=== PATIENT | male | born 1955 | race Caucasian/White ===

== ENCOUNTER 2017-10-21 13:14 | Emergency (ER) | payer OTHER ==
[2017-10-21 14:38] LABS: Absolute Lymphocytes (CBC) 1.5 K/uL (0.7-4.9); Absolute Monocytes 0.9 K/uL (0.1-1.3); Absolute Neutrophil 8.9 K/uL (1.8-8.0); Basophils % 0.7 % (0-1.3); Eosinophils % 1.2 % (0-4.4); Hematocrit 42.4 % (39.6-49.0); Lymphocytes % 13.1 % (15.3-44.8); MCH 29.8 pg (27.0-35.0); MCV 89.3 fL (80-100); MPV 9.7 fL (7.6-11.3); Monocytes % 8.1 % (3.3-12.3); RBC Red Blood Cell Count 4.75 M/uL (4.33-5.43)
[2017-10-21 14:41] LABS: Bicarbonate 26 mEq/L (21-31); Glucose Level 168 mg/dL (65-120); Potassium 3.9 mEq/L (3.6-5.0); Sodium Level 138 mEq/L (135-145)
[2017-10-21 14:42] LABS: BUN Blood Urea Nitrogen 10 mg/dL (6-20); Glomerular Filtration Rate > 90 mL/min (=/>90)
[2017-10-21 14:47] LABS: Urine Blood NEGATIVE (NEG); Urine Glucose 1+ (NEG); Urine Protein NEGATIVE (NEG); Urine Specific Gravity 1.025 (1.005-1.030); Urine pH 5.5 (5.0-7.0)
--- NOTE | 2017-10-21 14:59 | RAD REPORT ---
EXAM DESCRIPTION: CT - Head Brain Wo Cont - 10/21/2017 2:47 pm CLINICAL HISTORY: Dizziness COMPARISON: None. TECHNIQUE: Computed axial tomography of the head was obtained. IV contrast was not requested. All CT scans are performed using dose optimization technique as appropriate and may include automated exposure control or mA/KV adjustment according to patient size. FINDINGS: An intracranial bleed is not seen . The ventricles are normal in caliber. No extra-axial fluid collection is noted. Fluid within the sinuses/ mastoids is not seen. IMPRESSION: No acute intracranial abnormality is seen. If patient's symptoms persist MRI of the bra in would be recommended.
[2017-10-21] MEDS ORDERED: ONDANSETRON 4 MG/2 ML VIAL ONE (15:43)
[2017-10-21] MEDS ORDERED: MECLIZINE HCL 12.5 MG TAB ONE (15:43)
[2017-10-21] MEDS ORDERED: PROMETHAZINE 25 MG/ML VIAL ONE (15:54)
[2017-10-21] MEDS ORDERED: NA CHLORIDE 0.9% 1,000 ML ONE (15:54)
--- NOTE | 2017-10-21 17:05 | ER ---
Nurse's Notes [facility] Name: Rafia Segundo Age: 62 yrs Sex: Male : 1955 Arrival Date: 10/21/2017 Time: 13:25 Bed 15 Private MD: Diagnosis: Vertigo;Cutaneous abscess of abdominal wall Presentation: 10/21 13:15 Presenting complaint: EMS states: Pt. is A \T\ O x 4, c/o of SOB, weakness and was rb1 diaphoretic when EMS arrived, sitting on the sofa. Denies chest pain, EKG was SR. Left lower quadrant had an insulin pump that got infected. BS 150, T 97.4, BP 122/74, P 74, O2 96% RA. Transition of care: patient was not received from another setting of care. Onset of symptoms was October 21, 2017 at 12:45. Care prior to arrival: None. 13:15 Method Of Arrival: EMS: [facility] 13:15 Acuity: ARBEN 3 rb1 Triage Assessment: 13:15 General: Appears in no apparent distress. comfortable, Behavior is calm, cooperative, rb1 Denies fever. Pain: Complains of pain in left lower quadrant Pain currently is 3 out of 10 on a pain scale. Neuro: Level of Consciousness is awake, alert, obeys commands, Oriented to person, place, time, situation. Cardiovascular: Capillary refill < 3 seconds is brisk in bilateral fingers. Respiratory: Reports shortness of breath at rest Airway is patent Respiratory effort is even, unlabored, Respiratory pattern is regular, symmetrical, Onset: The symptoms/episode began/occurred suddenly, the patient has mild shortness of breath. GI: Reports nausea. : No signs and/or symptoms were reported regarding the genitourinary system. Derm: Skin is pink, warm \T\ dry. scabs noted to both arms. Musculoskeletal: Range of motion: intact in all extremities. Historical: - Allergies: 13:15 Skelaxin; rb1 - Home Meds: 13:15 clonazepam 1 mg Oral tab nightly [Active]; Creon Oral 3 cap with each meal [Active]; rb1 Flexeril 10 mg Oral tab 1 tab 2 times per day [Active]; losartan Oral once daily [Active]; lovasa 1gram 2 cap twice a day [Active]; [place] 7.5-325 mg Oral tab 1 tab every 4 hours [Active]; - PMHx: 13:15 Chronic pain; Diabetes - NIDDM; Hypertension; Pancreatitis; RESTLESS LEG SYN; rb1 - PSHx: 13:15 shoulder surgery; WHIPPLE; carpal tunnel to left hand; Cholecystectomy; Appendectomy; rb1 right knee surgery; - Immunization history:: Adult Immunizations up to date. - Social history:: Smoking status: Patient uses tobacco products, smokes one pack cigarettes per day. Screenin:15 Abuse screen: Denies threats or abuse. Nutritional screening: No deficits noted. rb1 Tuberculosis screening: No symptoms or risk factors identified. Fall Risk None identified. Assessment: 13:15 General: See triage assessment. rb1 13:15 Cardiovascular: Rhythm is sinus rhythm. Respiratory: Airway is patent Respiratory rb1 effort is even, unlabored, Respiratory pattern is regular, symmetrical, Breath sounds are clear bilaterally. 14:10 Reassessment: Patient appears in no apparent distress at this time. No changes from rb1 previously documented assessment. 15:09 Reassessment: Patient appears in no apparent distress at this time. Patient and/or rb1 family updated on plan of care and expected duration. Pain level reassessed. Patient is alert, oriented x 3, equal unlabored respirations, skin warm/dry/pink. 16:02 Reassessment: Patient appears in no apparent distress at this time. No changes from rb1 previously documented assessment. 17:04 Reassessment: Patient appears in no apparent distress at this time. Patient and/or rb1 family updated on plan of care and expected duration. Pain level reassessed. Patient is alert, oriented x 3, equal unlabored respirations, skin warm/dry/pink. Family at bedside. Vital Signs: 13:15 BP 150 / 83; Pulse 74; Resp 19; Temp 97.6(O); Pulse Ox 100% on R/A; Weight 73.48 kg; rb1 Height 5 ft. 9 in. (175.26 cm); Pain 3/10; 14:02 BP 148 / 83; Pulse 72; Resp 18; Pulse Ox 99% on R/A; Pain 3/10; rb1 15:00 BP 134 / 83 Supine; Pulse 74; rb1 15:02 BP 135 / 80 Sitting; Pulse 74; rb1 15:04 BP 143 / 81 Standing; Pulse 83; rb1 16:00 BP 138 / 78; Pulse 68; Resp 17; Pulse Ox 99% on R/A; rb1 17:00 BP 136 / 79; Pulse 66; Resp 18; Pulse Ox 98% on R/A; rb1 17:40 BP 137 / 81; Pulse 77; Resp 19; Pulse Ox 100% on R/A; rb1 13:15 Body Mass Index 23.92 (73.48 kg, 175.26 cm) rb1 ED Course: 13:15 Arm band placed on right wrist. rb1 13:15 Patient has correct armband on for positive identification. Placed in gown. Bed in low rb1 position. Call light in reach. Side rails up X 1. Pulse ox on. NIBP on. 13:25 Patient arrived in ED. rb1 13:26 Curly Baird PA is PHCP. jr8 13:26 Antoine Fragoso MD is Attending Physician. jr8 13:29 Triage completed. rb1 14:35 Nell Mckeon, RN is Primary Nurse. rb1 14:43 Urine Dipstick--Ancillary (enter results) Sent. tw2 14:44 Basic Metabolic Panel Sent. ag 14:44 CBC with Diff Sent. ag 14:45 Inserted saline lock: 20 gauge in right antecubital area, using aseptic technique. ag ,using aseptic technique. IV started by EMS student Dennis Munzo assisted by me. Blood collected. 14:46 CT completed. Patient tolerated procedure well. Patient moved back from CT. bq 15:28 EKG done, by ED staff, reviewed by Curly CHENG. ag 15:30 CT Head Brain wo Cont Sent. ag 17:52 No provider procedures requiring assistance completed. IV discontinued, intact, rb1 bleeding controlled, No redness/swelling at site. Pressure dressing applied. Administered Medications: 15:29 Drug: Meclizine 25 mg Route: PO; rb1 16:00 Follow up: Response: No adverse reaction rb1 15:29 Drug: Zofran 4 mg Route: IVP; Site: right antecubital; rb1 15:50 Follow up: Response: No adverse reaction; Nausea is decreased rb1 Outcome: 17:04 Discharge ordered by . jr8 17:52 Patient left the ED. rb1 17:52 Discharged to home ambulatory, with family. rb1 17:52 Condition: stable 17:52 Discharge instructions given to patient, Instructed on discharge instructions, follow up and referral plans. medication usage, Demonstrated understanding of instructions, follow-up care, medications, Prescriptions given X 4. Addendum: 10/24/2017 17:35 Addendum: Culture Results: Positive wound culture. Bacteria is resistant to, has i w intermediate sensitivity, or is not tested against prescribed antibiotics. Report given to FELICIANO for further evaluation and then to radio interference investigator for follow up with patient. Phone call Attempt #1 symptoms improving, abscess healing, has follow up with PCP on 11-02-17. Signatures: Maday Hurst Irene, RN RN iw Curly Baird PA PA jr8 Giselle Hernandes Rebecca, RN RN rb1 Lorraine Gan RN RN tw2
--- NOTE | 2017-10-21 17:05 | EDPHYS ---
Physician Documentation [facility] Name: Rafia Segundo Age: 62 yrs Sex: Male : 1955 Arrival Date: 10/21/2017 Time: 13:25 Bed 15 Private MD: ED Physician Antoine Fragoso HPI: 10/21 14:32 This 62 yrs old Male presents to ER via EMS with complaints of dizziness. jr8 15:06 The patient presents with vertigo. Onset: The symptoms/episode began/occurred acutely, jr8 today. Context: occurred at home, occurred while the patient was at rest. Modifying factors: The symptoms are alleviated by holding head still. Associated signs and symptoms: Pertinent positives: diaphoresis, nausea. Severity of symptoms: At their worst the symptoms were moderate in the emergency department the symptoms have improved mildly. Patient's baseline: Neuro: alert and fully oriented, Motor: no deficits, Ambulation: walks without assistance, Speech: normal. The patient has not experienced similar symptoms in the past. The patient has not recently seen a physician. Historical: - Allergies: 13:15 Skelaxin; rb1 - Home Meds: 13:15 clonazepam 1 mg Oral tab nightly [Active]; Creon Oral 3 cap with each meal [Active]; rb1 Flexeril 10 mg Oral tab 1 tab 2 times per day [Active]; losartan Oral once daily [Active]; lovasa 1gram 2 cap twice a day [Active]; [place] 7.5-325 mg Oral tab 1 tab every 4 hours [Active]; - PMHx: 13:15 Chronic pain; Diabetes - NIDDM; Hypertension; Pancreatitis; RESTLESS LEG SYN; rb1 - PSHx: 13:15 shoulder surgery; WHIPPLE; carpal tunnel to left hand; Cholecystectomy; Appendectomy; rb1 right knee surgery; - Immunization history:: Adult Immunizations up to date. - Social history:: Smoking status: Patient uses tobacco products, smokes one pack cigarettes per day. ROS: 15:06 Eyes: Negative for injury, pain, redness, and discharge, ENT: Negative for injury, jr8 pain, and discharge, Neck: Negative for injury, pain, and swelling, Cardiovascular: Negative for chest pain, palpitations, and edema, Respiratory: Negative for shortness of breath, cough, wheezing, and pleuritic chest pain, Abdomen/GI: Negative for abdominal pain, nausea, vomiting, diarrhea, and constipation, Back: Negative for injury and pain, MS/Extremity: Negative for injury and deformity, Skin: Negative for injury, rash, and discoloration. 15:06 Neuro: Positive for dizziness, Negative for altered mental status, gait disturbance, headache, hearing loss, loss of consciousness, numbness, seizure activity, speech changes, syncope, near syncope, tingling, tinnitus, tremor, visual changes, weakness. Exam: 15:06 Eyes: Pupils equal round and reactive to light, extra-ocular motions intact. Lids and jr8 lashes normal. Conjunctiva and sclera are non-icteric and not injected. Cornea within normal limits. Periorbital areas with no swelling, redness, or edema. ENT: Nares patent. No nasal discharge, no septal abnormalities noted. Tympanic membranes are normal and external auditory canals are clear. Oropharynx with no redness, swelling, or masses, exudates, or evidence of obstruction, uvula midline. Mucous membranes moist. Neck: Trachea midline, no thyromegaly or masses palpated, and no cervical lymphadenopathy. Supple, full range of motion without nuchal rigidity, or vertebral point tenderness. No Meningismus. Cardiovascular: Regular rate and rhythm with a normal S1 and S2. No gallops, murmurs, or rubs. Normal PMI, no JVD. No pulse deficits. Respiratory: Lungs have equal breath sounds bilaterally, clear to auscultation and percussion. No rales, rhonchi or wheezes noted. No increased work of breathing, no retractions or nasal flaring. Abdomen/GI: Soft, non-tender, with normal bowel sounds. No distension or tympany. No guarding or rebound. No evidence of tenderness throughout. Back: No spinal tenderness. No costovertebral tenderness. Full range of motion. MS/ Extremity: Pulses equal, no cyanosis. Neurovascular intact. Full, normal range of motion. Neuro: Awake and alert, GCS 15, oriented to person, place, time, and situation. Cranial nerves II-XII grossly intact. Motor strength 5/5 in all extremities. Sensory grossly intact. Cerebellar exam normal. Normal gait. 17:02 Skin: abscess, that is small, of the abdomen, with fluctuance, with surrounding jr8 cellulitis, that is mild. Vital Signs: 13:15 BP 150 / 83; Pulse 74; Resp 19; Temp 97.6(O); Pulse Ox 100% on R/A; Weight 73.48 kg; rb1 Height 5 ft. 9 in. (175.26 cm); Pain 3/10; 14:02 BP 148 / 83; Pulse 72; Resp 18; Pulse Ox 99% on R/A; Pain 3/10; rb1 15:00 BP 134 / 83 Supine; Pulse 74; rb1 15:02 BP 135 / 80 Sitting; Pulse 74; rb1 15:04 BP 143 / 81 Standing; Pulse 83; rb1 16:00 BP 138 / 78; Pulse 68; Resp 17; Pulse Ox 99% on R/A; rb1 17:00 BP 136 / 79; Pulse 66; Resp 18; Pulse Ox 98% on R/A; rb1 17:40 BP 137 / 81; Pulse 77; Resp 19; Pulse Ox 100% on R/A; rb1 13:15 Body Mass Index 23.92 (73.48 kg, 175.26 cm) rb1 MDM: 13:26 Patient medically screened. [facility] 17:02 Data reviewed: vital signs, nurses notes, lab test result(s), EKG, radiologic studies, [facility] CT scan, and as a result, I will discharge patient. Data interpreted: Pulse oximetry: on room air is 100 %. Interpretation: normal. Counseling: I had a detailed discussion with the patient and/or guardian regarding: the historical points, exam findings, and any diagnostic results supporting the discharge/admit diagnosis, lab results, radiology results, the need for outpatient follow up, a family practitioner, to return to the emergency department if symptoms worsen or persist or if there are any questions or concerns that arise at home. 10/21 14:17 Order name: CBC with Diff [facility] 10/21 14:17 Order name: Basic Metabolic Panel [facility] 10/21 14:32 Order name: Urine Dipstick--Ancillary (enter results) 10/21 14:41 Order name: CBC with Automated Diff; Complete Time: 15:04 EDCT 10/21 14:42 Order name: Basic Metabolic Panel; Complete Time: 15:04 EDCT 10/21 14:47 Order name: Urine Dipstick-Ancillary; Complete Time: 15:04 EDCT 10/21 14:17 Order name: CT Head Brain wo Cont [facility] 10/21 14:17 Order name: IV; Complete Time: 14:44 jr8 10/21 14:17 Order name: EKG - Nurse/Tech; Complete Time: 15:29 jr8 10/21 15:00 Order name: CT; Complete Time: 15:04 [facility] 10/21 15:06 Order name: EKG; Complete Time: 15:06 ss 10/21 17:03 Order name: Wound Culture jr8 10/21 14:18 Order name: Orthostatics; Complete Time: 15:29 jr8 Administered Medications: 15:29 Drug: Meclizine 25 mg Route: PO; rb1 16:00 Follow up: Response: No adverse reaction rb1 15:29 Drug: Zofran 4 mg Route: IVP; Site: right antecubital; rb1 15:50 Follow up: Response: No adverse reaction; Nausea is decreased rb1 Disposition: 10/21/17 17:04 Discharged to Home. Impression: Vertigo, Cutaneous abscess of abdominal wall. - Condition is Stable. - Discharge Instructions: Abscess, Incision and Drainage, Vertigo. - Prescriptions for Clindamycin HCl 300 mg Oral Capsule - take 1 capsule by ORAL route every 6 hours for 10 days; 40 capsule. Meclizine 25 mg Oral Tablet - take 1 tablet by ORAL route every 8 hours As needed; 30 tablet. Zofran 4 mg Oral Tablet - take 1 tablet by ORAL route every 12 hours As needed; 20 tablet. Bactrim DS 800- 160 mg Oral Tablet - take 1 tablet by ORAL route every 12 hours for 10 days; 20 tablet. - Medication Reconciliation Form, Thank You Letter, Antibiotic Education, Prescription Opioid Use form. - Follow up: Private Physician; When: 2 - 3 days; Reason: Recheck today's complaints, Continuance of care, Re-evaluation by your physician. - Problem is new. - Symptoms have improved. Addendum: 10/23/2017 07:52 Co-signature as Attending Physician, Antoine Fragoso MD I agree with the assessment and c martinez plan of care. Signatures: Dispatcher [employer] Antoine Gayle MD MD cha Roszak, Josh, PA PA jr8 Nell Mckeon, RN RN rb1 Corrections: (The following items were deleted from the chart) 10/21 17:02 15:06 Eyes: Pupils equal round and reactive to light, extra-ocular motions intact. Lids jr8 and lashes normal. Conjunctiva and sclera are non-icteric and not injected. Cornea within normal limits. Periorbital areas with no swelling, redness, or edema. ENT: Nares patent. No nasal discharge, no septal abnormalities noted. Tympanic membranes are normal and external auditory canals are clear. Oropharynx with no redness, swelling, or masses, exudates, or evidence of obstruction, uvula midline. Mucous membranes moist. Neck: Trachea midline, no thyromegaly or masses palpated, and no cervical lymphadenopathy. Supple, full range of motion without nuchal rigidity, or vertebral point tenderness. No Meningismus. Cardiovascular: Regular rate and rhythm with a normal S1 and S2. No gallops, murmurs, or rubs. Normal PMI, no JVD. No pulse deficits. Respiratory: Lungs have equal breath sounds bilaterally, clear to auscultation and percussion. No rales, rhonchi or wheezes noted. No increased work of breathing, no retractions or nasal flaring. Abdomen/GI: Soft, non-tender, with normal bowel sounds. No distension or tympany. No guarding or rebound. No evidence of tenderness throughout. Back: No spinal tenderness. No costovertebral tenderness. Full range of motion. Skin: Warm, dry with normal turgor. Normal color with no rashes, no lesions, and no evidence of cellulitis. MS/ Extremity: Pulses equal, no cyanosis. Neurovascular intact. Full, normal range of motion. Neuro: Awake and alert, GCS 15, oriented to person, place, time, and situation. Cranial nerves II-XII grossly intact. Motor strength 5/5 in all extremities. Sensory grossly intact. Cerebellar exam normal. Normal gait. jr8
[2017-10-21 17:57] VITALS: TEMP 97.6; O2SAT 100
[2017-10-21 18:00] VITALS: BP 143/81
--- NOTE | 2017-10-22 05:14 | EKG ---
Test Date: 2017-10-21 Test Time: 15:20:17 Executive Chairman: [facility] MEASUREMENT RESULTS: Intervals: Rate: 72 SD: 162 QRSD: 92 QT: 380 QTc: 416 Moore: P: 74 SD: 162 QRS: 65 T: 51 INTERPRETIVE STATEMENTS: Normal sinus rhythm Normal ECG Compared to ECG 12/12/2013 23:51:22 No significant changes Electronically Signed On 10-22-17 05:13:53 CDT by Anthony Farrar
== END 2017-10-21 17:52 | disposition home or self-care (01) ==
LOC: ER 13:14
DX: L02.211 Cutaneous abscess of abdominal wall (principal); I10 Essential (primary) hypertension; E11.9 Type 2 diabetes mellitus without complications; F17.210 Nicotine dependence, cigarettes, uncomplicated; Z88.8 Allergy status to other drugs, medicaments and biological substances
CPT/HCPCS: 36415; 70450; 80048; 81003; 85025; 87070; 87077; 87186; 87205; 93005; 96374; 99285; J2405; J2550; J7030

== ENCOUNTER 2018-07-27 09:07 | Day surgery (SDC) | payer OTHER ==
--- NOTE | 2018-07-25 14:35 | EKG ---
Test Date: 2018-07-25 Test Time: 11:36:47 Airplane Pilot Supervisor: PK MEASUREMENT RESULTS: Intervals: Rate: 75 TN: 152 QRSD: 98 QT: 376 QTc: 419 [place]: P: 13 TN: 152 QRS: 60 T: 52 INTERPRETIVE STATEMENTS: Normal sinus rhythm Normal ECG Compared to ECG 10/21/2017 15:20:17 No significant changes Electronically Signed On 07-25-18 14:35:17 SCREENER AND BLENDER OPERATOR by Chris Arnold
--- OUTSIDE RECORDS SUMMARY | 2018-07-27 09:10 | XMS REPORT ---
:1955 [facility] Address [address] [place] [address] Dr. Duvall [address] [place] [id number] Care Team Providers Name Role Phone Unavailable Unavailable Unavailable Problems This patient has no known problems. Allergies, Adverse Reactions, Alerts This patient has no known allergies or adverse reactions. Medications This patient has no known medications.
[2018-07-27] MEDS ORDERED: NA CHLORIDE 0.9% 1,000 ML ONE (09:38)
[2018-07-27] MEDS ORDERED: MIDAZOLAM HCL 2 MG/2 ML INJ ONE (10:03)
[2018-07-27] MEDS ORDERED: BUPIVACA 0.25%/EPI 0.0005% MDV 50 ML VIAL ONE (10:07)
[2018-07-27] MEDS ORDERED: LIDOCAINE 1.5% W/EPI AMP 5 ML ONE (10:07)
[2018-07-27] MEDS ORDERED: FENTANYL CITR 100 MCG/2 ML ONE ×2 (10:37→11:11)
[2018-07-27] MEDS ORDERED: PROPOFOL 200 MG/20 ML VIAL IV ONE (10:37)
[2018-07-27] MEDS ORDERED: GLYCOPYRROLATE 0.2 MG/ML SYR ONE (10:38)
[2018-07-27] MEDS ORDERED: LIDOCAINE 1% MPF 2 ML AMPULE ONE (10:39)
[2018-07-27] MEDS ORDERED: ROCURONIUM 50 MG/5 ML VIAL IV ONE (10:39)
[2018-07-27] MEDS ORDERED: ONDANSETRON 4 MG/2 ML VIAL ONE (10:39)
[2018-07-27] MEDS ORDERED: NEOSTIGMINE 1 MG/ML -5 ML SYRINGE ONE (10:39)
--- NOTE | 2018-07-27 12:41 | P.BOP ---
Preoperative diagnosis: SCC lip insitu Postoperative diagnosis: SCC lip Primary procedure: wedge resection of left lower lip Estimated blood loss: <10ml Specimen: L lower lip, suture 12 oclock to FS Anesthesia: General Complications: None Implants: none Transferred to: Recovery Room Condition: Good
[2018-07-27 14:07] VITALS: BP 137/67; TEMP 98.4; O2SAT 97
--- NOTE | 2018-07-28 00:22 | OP ---
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 Procedure: Transverse wedge excision of the left lower lip. Indication For Procedure: Mr. Segundo is a 62-year-old with a history of sun exposure and heavy tobac co use, who presented with a shallow ulcer of the left lower lip. Biopsy confirmed squamous cell car cinoma in situ with focal invasion and the recommendation was made for formal excision in order to co nfirm removal of all abnormal tissue. The risks, benefits, and alternatives were discussed with the patient who agreed to proceed. Description Of Procedure: The patient was brought to the operating room, placed under general anesth esia via oral endotracheal tube. Initial exam revealed a superficial ulceration at the biopsy site w ith a small area of adjacent ulceration approximately 2 mm medial to the initial biopsy. Decision wa s made to remove these two areas as a single specimen. A left mental nerve block and local infiltrat ion of the lower lip was performed using Marcaine with epinephrine. The lip and face were prepped in a sterile fashion. The patient was noted to have grossly carious and avulsed teeth. A lap sponge w as placed over the teeth and tucked into the inferior gingival buccal sulcus in order to provide bett er working area and prevent egress of blood into the oral cavity proper. A knife was used to incise, a wedge excision extending from the cutaneous lip including the vermilion lip and extending onto the mucosal surface. Bovie electrocautery was used to divide the deeper tissues. The labial artery was encountered, clamped and tied with silk suture and the specimen was removed, with partial removal of the underlying orbicularis kayode. The specimen was marked at the 12 o'clock tip indicating the mucos al surface of the lip and sent to Pathology for frozen section analysis. The margins peripherally an d deep were all negative for tumor cells and a primary closure of the lip was undertaken as the porti on of the removed lip was less than 1/3 of the lip length, the deep surfaces were approximated using a 4-0 Vicryl suture and the mucosal and skin surfaces were closed in a running fashion using a gut azul ture. Triple antibiotic ointment was applied to the external suture line and the lap sponge was erin mae from the oral cavity. The patient was returned to care of anesthesia for awakening extubation wh ich proceeded without difficulty. Complications: None. Specimens: Left lower lip suture yanes 12 o'clock. Frozen section has negative margins. Disposition: The patient will follow up with Dr. Kulkarni in 10-14 days for evaluation of healing. RINA/MOHAMUD Voice ID: [id number] Report ID: [id number]
== END 2018-07-27 13:55 | disposition home or self-care (01) ==
LOC: OR 09:07
PROVIDERS: ATTEND Otolaryngology
PROC: 0CB1XZX Excision of Lower Lip, External Approach, Diagnostic (ICD-10-PCS; principal; 2018-07-27 12:00)
DX: C00.8 Malignant neoplasm of overlapping sites of lip (principal); E11.9 Type 2 diabetes mellitus without complications; F17.210 Nicotine dependence, cigarettes, uncomplicated; Z79.899 Other long term (current) drug therapy
CPT/HCPCS: 40510; 82962 ×2; 88305; 88331; 88332; 93005; J2001; J2250; J2405; J2704; J2710; J3010 ×2; J7030

== ENCOUNTER 2019-02-17 19:47 | Inpatient (IN) | payer OTHER ==
--- OUTSIDE RECORDS SUMMARY | 2019-02-17 19:58 | XMS REPORT ---
:1955 [facility] Address [address] [place] [address] Dr. Duvall [address] [place] [id number] Care Team Providers Name Role Phone Unavailable Unavailable Unavailable Problems This patient has no known problems. Allergies, Adverse Reactions, Alerts This patient has no known allergies or adverse reactions. Medications This patient has no known medications.
[2019-02-17 20:12] LABS: Absolute Lymphocytes (CBC) 1.4 K/uL (0.7-4.9); Basophils % 0.4 % (0-1.3); Hematocrit 39.7 % (39.6-49.0); Lymphocytes % 7.7 % (15.3-44.8); MPV 10.2 fL (7.6-11.3); RBC Red Blood Cell Count 4.33 M/uL (4.33-5.43)
[2019-02-17 20:13] LABS: Protime INR 1.04
[2019-02-17 20:31] LABS: ALT/SGPT 28 U/L (12-78); AST/SGOT 22 U/L (15-37); Albumin 3.8 g/dL (3.4-5.0); Alkaline Phosphatase 115 U/L (45-117); BUN Blood Urea Nitrogen 12 mg/dL (7-18); Bicarbonate 25 mmol/L (21-32); Bilirubin Direct 0.2 mg/dL (0-0.2); Bilirubin Total 0.5 mg/dL (0.2-1.0); Glucose Level 191 mg/dL (74-106); Lipase 12 U/L (73-393); Magnesium 1.9 mg/dL (1.8-2.4); NT PRO-BNP 104 pg/mL (<125); Potassium 3.8 mmol/L (3.5-5.1); Protein, Total 7.6 g/dL (6.4-8.2); Sodium Level 139 mmol/L (136-145); Troponin (Emerg Dept Use Only) < 0.02 ng/mL (0.0-0.045)
[2019-02-17] MEDS ORDERED: NA CHLORIDE 0.9% 1,000 ML ONE (20:42)
[2019-02-17] MEDS ORDERED: ONDANSETRON 4 MG/2 ML VIAL ONE (20:42)
[2019-02-17] MEDS ORDERED: MORPHINE 4 MG/ML SYR ONE (20:42)
--- NOTE | 2019-02-17 20:48 | RAD REPORT ---
EXAM DESCRIPTION: RAD - Chest Single View - 02/17/2019 8:37 pm CLINICAL HISTORY: CHEST PAIN Chest pain. COMPARISON: CHEST PA AND LAT 2 VIEW dated 01/14/2012; CHEST PA AND LAT 2 VIEW dated 10/09/2011; CHEST SINGLE VIEW dated 03/23/2008; CHEST SINGLE VIEW dated 03/22/2008 FINDINGS: Portable technique limits examination quality. The lungs are grossly clear. The heart is normal in size. No displaced fractures. IMPRESSION: No acute intrathoracic process suspected.
[2019-02-17] MEDS ORDERED: FENTANYL CITR 100 MCG/2 ML ONE (21:28)
--- NOTE | 2019-02-17 22:25 | EDPHYS ---
Physician Documentation [facility] Name: Rafia Segundo Age: 63 yrs Sex: Male : 1955 Arrival Date: 02/17/2019 Time: 19:55 Bed 15 Private MD: ED Physician Jason Heaton HPI: 02/17 20:50 This 63 yrs old Male presents to ER via EMS with complaints of Chest Pain. pm1 20:50 The patient or guardian reports chest pain that is located primarily in the epigastric pm1 area. Onset: just prior to arrival. The pain does not radiate. Associated signs and symptoms: Pertinent positives: abdominal pain, Pertinent negatives: nausea, shortness of breath, vomiting, Diarrhea. The chest pain is described as aching. Duration: The patient or guardian reports a single episode, that is still ongoing. Modifying factors: The symptoms are alleviated by nothing. the symptoms are aggravated by nothing. Severity of pain: in the emergency department the pain is actually worse. The patient has experienced similar episodes in the past, multiple times, history of chronic pancreatitis . The patient has been recently seen by a physician: the patient's primary care provider, Dr. Suh for cough 1 week ago. Historical: - Allergies: 20:01 Skelaxin; la1 - Home Meds: 22:46 Creon 12,000-38,000 -60,000 unit oral cpDR 1 caps 3 times per day [Active]; clonazepam la1 1 mg Oral tab 2 times per day [Active]; gabapentin 400 mg oral cap 1 cap 3 times per day [Active]; [place] 7.5-325 mg Oral tab 1 tab every 6 hours [Active]; Flexeril 10 mg Oral tab 1 tab 3 times per day [Active]; lovastatin 20 mg Oral tab 1 tab once daily [Active]; losartan 100 mg oral tab 1 tab once daily [Active]; pantoprazole 40 mg oral TbEC 1 tab once daily [Active]; 22:50 Humalog 100 unit/mL Sub-Q soln 1 Pt has basal rate insulin and boluses based on card la1 intake [Active]; - PMHx: 20:01 Chronic pain; Diabetes - NIDDM; Hypertension; Pancreatitis; RESTLESS LEG SYN; la1 22:46 insulin pump; la1 22:50 Cancer of gall bladder duct; la1 - Immunization history:: Adult Immunizations up to date. - Social history:: Smoking status: Patient uses tobacco products, smokes one pack cigarettes per day. - Ebola Screening: : No symptoms or risks identified at this time. ROS: 20:55 Constitutional: Negative for fever, chills, and weight loss, Eyes: Negative for injury, pm1 pain, redness, and discharge, ENT: Negative for injury, pain, and discharge, Neck: Negative for injury, pain, and swelling. 20:55 Respiratory: Negative for shortness of breath, cough, wheezing, and pleuritic chest pain. 20:55 Back: Negative for injury and pain, : Negative for injury, bleeding, discharge, and swelling, MS/Extremity: Negative for injury and deformity, Skin: Negative for injury, rash, and discoloration, Neuro: Negative for headache, weakness, numbness, tingling, and seizure. 20:55 Cardiovascular: Positive for chest pain, Negative for palpitations. 20:55 Abdomen/GI: Positive for abdominal pain, of the epigastric area and left upper quadrant, Negative for nausea, vomiting, and diarrhea, constipation. Exam: 20:00 Constitutional: This is a well developed, well nourished patient who is awake, alert, pm1 and in no acute distress. Head/Face: Normocephalic, atraumatic. Neck: Trachea midline, no thyromegaly or masses palpated, and no cervical lymphadenopathy. Supple, full range of motion without nuchal rigidity, or vertebral point tenderness. No Meningismus. Chest/axilla: Normal chest wall appearance and motion. Nontender with no deformity. No lesions are appreciated. Cardiovascular: Regular rate and rhythm with a normal S1 and S2. No gallops, murmurs, or rubs. Normal PMI, no JVD. No pulse deficits. Respiratory: Lungs have equal breath sounds bilaterally, clear to auscultation and percussion. No rales, rhonchi or wheezes noted. No increased work of breathing, no retractions or nasal flaring. 20:00 Back: No spinal tenderness. No costovertebral tenderness. Full range of motion. Skin: Warm, dry with normal turgor. Normal color with no rashes, no lesions, and no evidence of cellulitis. MS/ Extremity: Pulses equal, no cyanosis. Neurovascular intact. Full, normal range of motion. 20:00 Abdomen/GI: Inspection: abdomen appears normal, Bowel sounds: normal, Palpation: soft, moderate abdominal tenderness, in the epigastric area and left upper quadrant, mass, is not appreciated, rebound tenderness, is not appreciated. 20:00 Neuro: Orientation: is normal, Motor: is normal, moves all fours, Sensation: is normal, no obvious gross deficits. Vital Signs: 20:01 BP 129 / 70; Pulse 90; Resp 16; Temp 100.1; Pulse Ox 98% on R/A; Weight 78.93 kg; la1 Height 5 ft. 9 in. (175.26 cm); 20:52 BP 146 / 77; Pulse 88; Resp 16; Pulse Ox 98% on R/A; la1 22:29 BP 149 / 74; Pulse 84; Resp 17 S; Temp 98.2(O); Pulse Ox 98% on R/A; cc3 23:45 BP 128 / 74; Pulse 77; Resp 16; Pulse Ox 98% on R/A; la1 20:01 Body Mass Index 25.70 (78.93 kg, 175.26 cm) la1 MDM: 19:58 Patient medically screened. pm1 22:23 Data reviewed: vital signs. Data interpreted: Pulse oximetry: on room air is 98 %. pm1 Interpretation: normal. Counseling: I had a detailed discussion with the patient and/or guardian regarding: the historical points, exam findings, and any diagnostic results supporting the discharge/admit diagnosis, lab results, radiology results, the need for further work-up and treatment in the hospital, to return to the emergency department if symptoms worsen or persist or if there are any questions or concerns that arise at home. 02/17 19:58 Order name: Basic Metabolic Panel; Complete Time: 20:33 pm1 02/17 19:58 Order name: CBC with Diff; Complete Time: 20:23 pm1 02/17 19:58 Order name: LFT's; Complete Time: 20:33 pm1 02/17 19:58 Order name: Magnesium; Complete Time: 20:33 pm1 02/17 19:58 Order name: NT PRO-BNP; Complete Time: 20:33 pm1 02/17 19:58 Order name: PT-INR; Complete Time: 20:32 pm1 02/17 19:58 Order name: Troponin (emerg Dept Use Only); Complete Time: 20:33 pm1 02/17 19:58 Order name: XRAY Chest (1 view); Complete Time: 20:51 pm1 02/17 20:16 Order name: Lipase; Complete Time: 20:33 EDMS 02/17 20:23 Order name: ETOH Level; Complete Time: 21:49 pm1 02/17 20:49 Order name: CT Abd/Pelvis - IV Contrast Only pm1 02/17 21:10 Order name: Urine Dipstick--Ancillary (enter results); Complete Time: 23:18 cm6 02/17 19:58 Order name: EKG; Complete Time: 20:01 pm1 02/17 19:58 Order name: Cardiac monitoring; Complete Time: 20:04 pm1 02/17 19:58 Order name: EKG - Nurse/Tech; Complete Time: 20:04 pm1 02/17 19:58 Order name: IV Saline Lock; Complete Time: 20:04 pm1 02/17 19:58 Order name: Labs collected and sent; Complete Time: 20:04 pm1 02/17 19:58 Order name: O2 Per Protocol; Complete Time: 20:04 pm1 02/17 19:58 Order name: O2 Sat Monitoring; Complete Time: 20:04 pm1 02/17 20:49 Order name: Urine Dipstick-Ancillary (obtain specimen); Complete Time: 21:13 pm1 02/17 22:25 Order name: NPO; Complete Time: 22:34 pm1 02/17 23:41 Order name: CONS Pharmacy Consult EDMS 02/17 23:41 Order name: NPO EDOH Administered Medications: 20:35 Drug: morphine 4 mg Route: IVP; Site: right antecubital; la1 20:50 Follow up: Response: No adverse reaction; Pain is decreased la1 20:35 Drug: Zofran 4 mg Route: IVP; Site: right antecubital; la1 20:50 Follow up: Response: No adverse reaction la1 20:35 Drug: NS 0.9% 1000 ml Route: IV; Rate: 1000 ml; Site: right antecubital; la1 23:15 Follow up: IV Status: Completed infusion la1 21:14 Drug: fentaNYL (PF) 50 mcg Route: IVP; Site: right antecubital; la1 22:34 Follow up: Response: No adverse reaction; Pain is decreased la1 23:09 Not Given (Physician Discretion): NS 0.9% 1000 ml IV at 100 ml/hr once pm1 23:20 Drug: D5 -4 NS 1000 ml Route: IV; Rate: 100 ml/hr; Site: right antecubital; la1 23:21 Follow up: IV Status: Infusion continued upon admission la1 Point of Care Testing: Blood Glucose: 20:01 Blood Glucose: 211 mg/dL; la1 Ranges: Critical Glucose Levels:Adult <50 mg/dl or >400 mg/dl <40 mg/dl or >180 mg/dl Disposition: 02/17/19 22:23 Hospitalization ordered by Amira Gonzalez for Inpatient Admission. Preliminary diagnosis is Acute pancreatitis. - Bed requested for Telemetry/MedSurg (Inpatient). - Status is Inpatient Admission. la1 - Condition is Stable. - Problem is new. - Symptoms have improved. UTI on Admission? No Addendum: 02/19/2019 04:42 Co-signature as Attending Physician, Jason Heaton MD I agree with the assessment and t w4 plan of care. Signatures: Dispatcher [employer] EDOH Dede Crain RN RN Slick Lo RN RN la1 Gray Ricks, SMALLTALK DEVELOPER SMALLTALK DEVELOPER pm1 Jason Heaton MD MD tw4 Corrections: (The following items were deleted from the chart) 02/17 20:15 20:06 LIPASE+C.LAB.BRZ ordered. [facility] EDOH 23:48 22:23 Hospitalization Ordered by Amira Gonzalez MD for Inpatient Admission. Preliminary mw diagnosis is Acute pancreatitis. Bed requested for Telemetry/MedSurg (Inpatient). Status is Inpatient Admission. Condition is Stable. Problem is new. Symptoms have improved. UTI on Admission? No. pm1 02/18 00:36 02/17 23:48 02/17/2019 22:23 Hospitalization Ordered by Amira Gonzalez MD for Inpatient la1 Admission. Preliminary diagnosis is Acute pancreatitis. Bed requested for Telemetry/MedSurg (Inpatient). Status is Inpatient Admission. Condition is Stable. Problem is new. Symptoms have improved. UTI on Admission? No. mw
--- NOTE | 2019-02-17 22:25 | ER ---
Nurse's Notes [facility] Name: Rafia Segundo Age: 63 yrs Sex: Male : 1955 Arrival Date: 02/17/2019 Time: 19:55 Bed 15 Private MD: Diagnosis: Acute pancreatitis Presentation: 02/17 20:00 Presenting complaint: Patient states: I was working on my car and got hypoglycemic, la1 after that my chest started hurting real bad and it radiates to my back. Transition of care: patient was not received from another setting of care. Onset of symptoms was February 17, 2019. Risk Assessment: Do you want to hurt yourself or someone else? Patient reports no desire to harm self or others. Initial Sepsis Screen: Does the patient meet any 2 criteria? No. Patient's initial sepsis screen is negative. Does the patient have a suspected source of infection? No. Patient's initial sepsis screen is negative. Care prior to arrival: None. 20:00 Method Of Arrival: EMS: [facility] la1 20:00 Acuity: ARBEN 2 la1 Historical: - Allergies: 20:01 Skelaxin; la1 - Home Meds: 22:46 Creon 12,000-38,000 -60,000 unit oral cpDR 1 caps 3 times per day [Active]; clonazepam la1 1 mg Oral tab 2 times per day [Active]; gabapentin 400 mg oral cap 1 cap 3 times per day [Active]; [place] 7.5-325 mg Oral tab 1 tab every 6 hours [Active]; Flexeril 10 mg Oral tab 1 tab 3 times per day [Active]; lovastatin 20 mg Oral tab 1 tab once daily [Active]; losartan 100 mg oral tab 1 tab once daily [Active]; pantoprazole 40 mg oral TbEC 1 tab once daily [Active]; 22:50 Humalog 100 unit/mL Sub-Q soln 1 Pt has basal rate insulin and boluses based on card la1 intake [Active]; - PMHx: 20:01 Chronic pain; Diabetes - NIDDM; Hypertension; Pancreatitis; RESTLESS LEG SYN; la1 22:46 insulin pump; la1 22:50 Cancer of gall bladder duct; la1 - Immunization history:: Adult Immunizations up to date. - Social history:: Smoking status: Patient uses tobacco products, smokes one pack cigarettes per day. - Ebola Screening: : No symptoms or risks identified at this time. Screenin:03 Abuse screen: Denies threats or abuse. Nutritional screening: No deficits noted. la1 Tuberculosis screening: No symptoms or risk factors identified. Fall Risk None identified. Assessment: 20:02 General: Appears in no apparent distress. Behavior is calm, cooperative. Pain: la1 Complains of pain in chest Pain radiates to back Pain currently is 5 out of 10 on a pain scale. Quality of pain is described as pressure, Pain began 1 hour ago. Neuro: Level of Consciousness is awake, alert, obeys commands, Oriented to person, place, time, situation. Cardiovascular: Capillary refill < 3 seconds Patient's skin is warm and dry. Respiratory: Airway is patent Respiratory effort is even, unlabored, Respiratory pattern is regular, symmetrical, Breath sounds are coarse bilaterally. GI: No signs and/or symptoms were reported involving the gastrointestinal system. : No signs and/or symptoms were reported regarding the genitourinary system. 20:35 Reassessment: Patient appears in no apparent distress at this time. No changes from la1 previously documented assessment. Patient and/or family updated on plan of care and expected duration. Pain level reassessed. Patient is alert, oriented x 3, equal unlabored respirations, skin warm/dry/pink. 21:54 Reassessment: Patient appears in no apparent distress at this time. No changes from la1 previously documented assessment. Patient and/or family updated on plan of care and expected duration. Pain level reassessed. Patient is alert, oriented x 3, equal unlabored respirations, skin warm/dry/pink. 23:46 Reassessment: Patient appears in no apparent distress at this time. No changes from la1 previously documented assessment. Patient and/or family updated on plan of care and expected duration. Pain level reassessed. Patient is alert, oriented x 3, equal unlabored respirations, skin warm/dry/pink. Vital Signs: 20:01 BP 129 / 70; Pulse 90; Resp 16; Temp 100.1; Pulse Ox 98% on R/A; Weight 78.93 kg; la1 Height 5 ft. 9 in. (175.26 cm); 20:52 BP 146 / 77; Pulse 88; Resp 16; Pulse Ox 98% on R/A; la1 22:29 BP 149 / 74; Pulse 84; Resp 17 S; Temp 98.2(O); Pulse Ox 98% on R/A; cc3 23:45 BP 128 / 74; Pulse 77; Resp 16; Pulse Ox 98% on R/A; la1 20:01 Body Mass Index 25.70 (78.93 kg, 175.26 cm) la1 ED Course: 19:55 Patient arrived in ED. ds1 19:58 Slick Lo, VIC is Primary Nurse. la1 19:58 Gray Ricks NP is PHCP. pm1 19:58 Jason Heaton MD is Attending Physician. pm1 20:00 Triage completed. la1 20:00 Inserted saline lock: 20 gauge in right antecubital area, using aseptic technique. cc3 20:02 Arm band placed on left wrist. la1 20:03 Placed in gown. Bed in low position. Call light in reach. equipment monitor phototypesetting on. Pulse ox la1 on. NIBP on. 20:38 XRAY Chest (1 view) In Process Unspecified. EDMS 20:52 Patient maintains SpO2 saturation greater than 95% on room air. la1 21:35 CT Abd/Pelvis - IV Contrast Only In Process Unspecified. EDMS 22:23 Amira Gonzalez MD is Hospitalizing Provider. pm1 07 00:35 No provider procedures requiring assistance completed. Patient admitted, IV remains in la1 place. Administered Medications: 02/17 20:35 Drug: morphine 4 mg Route: IVP; Site: right antecubital; la1 20:50 Follow up: Response: No adverse reaction; Pain is decreased la1 20:35 Drug: Zofran 4 mg Route: IVP; Site: right antecubital; la1 20:50 Follow up: Response: No adverse reaction la1 20:35 Drug: NS 0.9% 1000 ml Route: IV; Rate: 1000 ml; Site: right antecubital; la1 23:15 Follow up: IV Status: Completed infusion la1 21:14 Drug: fentaNYL (PF) 50 mcg Route: IVP; Site: right antecubital; la1 22:34 Follow up: Response: No adverse reaction; Pain is decreased la1 23:09 Not Given (Physician Discretion): NS 0.9% 1000 ml IV at 100 ml/hr once pm1 23:20 Drug: D5 -1/4 NS 1000 ml Route: IV; Rate: 100 ml/hr; Site: right antecubital; la1 23:21 Follow up: IV Status: Infusion continued upon admission la1 Point of Care Testing: Blood Glucose: 20:01 Blood Glucose: 211 mg/dL; la1 Ranges: Outcome: 22:23 Decision to Hospitalize by Provider. pm1 02/18 00:35 Admitted to Med/surg accompanied by nurse, via stretcher, room 217, with chart. la1 Condition: stable Instructed on the need for admit. 00:36 Patient left the ED. la1 Signatures: Dispatcher [employer] EDIL Tianna Mccullough ds1 Slick Lo RN RN la1 Gray Ricks NP SOLAR SALES AMBASSADOR pm1 Vivien Morton cc3 Corrections: (The following items were deleted from the chart) 02/17 22:31 22:29 BP 149 / 74; Pulse 84bpm; Resp 17bpm; Spontaneous; Pulse Ox 98% RA; cc3 cc3
[2019-02-17 23:14] LABS: Urine Blood NEGATIVE (NEG); Urine Glucose NEGATIVE (NEG); Urine Protein NEGATIVE (NEG)
[2019-02-17] MEDS ORDERED: D5 0.2 NS 1,000 ML IV ONE (23:33)
[2019-02-17] MEDS ORDERED: ONDANSETRON 4 MG/2 ML VIAL IV PRN (23:35)
[2019-02-17] MEDS ORDERED: ACETAMINOPHEN 500 MG TAB PO PRN (23:35)
[2019-02-17] MEDS ORDERED: MORPHINE 4 MG/ML SYR IV PRN (23:35)
[2019-02-17] MEDS ORDERED: NA CHLORIDE 0.9% 1,000 ML IV SCH (23:45)
[2019-02-18 02:01] VITALS: BMI 25.7
[2019-02-18] MEDS: FENTANYL CITR 100 MCG/2 ML IV PRN ×2 (03:41→09:27)
[2019-02-18 05:14] LABS: Absolute Lymphocytes (CBC) 3.3 K/uL (0.7-4.9); Basophils % 0.6 % (0-1.3); Hematocrit 37.7 % (39.6-49.0); Lymphocytes % 26.7 % (15.3-44.8); MPV 10.2 fL (7.6-11.3)
[2019-02-18 05:30] LABS: Albumin 3.3 g/dL (3.4-5.0); Bilirubin Total 0.5 mg/dL (0.2-1.0); Potassium 4.2 mmol/L (3.5-5.1); Protein, Total 6.8 g/dL (6.4-8.2)
[2019-02-18] MEDS ORDERED: D50W 25 GM/50 ML SYRINGE IV ONE ×2 (05:38→12:33)
[2019-02-18] MEDS ORDERED: ALBUTEROL 2.5 MG/3 ML NEB SOL IH PRN (07:58)
[2019-02-18] MEDS ORDERED: CYCLOBENZAPRINE 10 MG TAB PO PRN (07:58)
[2019-02-18] MEDS ORDERED: BENZONATATE 100 MG CAP PO PRN (07:58)
--- NOTE | 2019-02-18 08:01 | P.HP ---
Certification for Inpatient Patient admitted to: Observation With expected LOS: <2 Midnights Patient will require the following post-hospital care: None Practitioner: I am a practitioner with admitting privileges, knowledge of patient current condition, hospital course, and medical plan of care. Services: Services provided to patient in accordance with Admission requirements found in Title 42 Section 412.3 of the Code of Federal Regulations Patient History Date of Service: 02/18/19 Reason for admission: Acute on chronic pancreatitis History of Present Illness: Patient is a 63-year-old gentleman who has a history of cholangiocarcinoma status post Whipple procedure. This was done 30 years ago. Patient has done extremely well since the surgery. He did develop pancreatitis afterwards. He has developed chronic pancreatitis per CT findings. He gets flare ups on and off. He takes Creon daily but he ran out a couple weeks ago. He started having abdominal pain about a week later. It progressed and he started having nausea and vomiting with this severe pain. He came into the hospital. His lipase is normal but his CT scan does show moderate inflammation. He does have chronic pancreatitis with calcifications seen on the CT scan of the pancreas. Will restart his Creon and hydrate him aggressively. Will discuss with Radiology CT findings as he has also had prior intra-abdominal abscesses. This was treated at [facility] over a year ago. He has done well since that time. Will have to monitor him closely with while in the hospital and restart his Creon and hopefully his symptoms resolve quickly. Allergies metaxalone [From Skelaxin] Allergy (Mild, Verified 02/18/19 01:30) Rash Home Medications: Albuterol Neb [Proventil 0.083% Neb Soln] 2.5 mg IH BID PRN 02/18/19 Benzonatate 100 mg PO TID PRN 02/18/19 Cyclobenzaprine [Flexeril] 10 mg PO TID PRN 02/18/19 Gabapentin 400 mg PO TID 02/18/19 Hydrocodone/Acetaminophen [[place] 7.5-325 Tablet] 1 each PO Q6H PRN 02/18/19 Lipase/Protease/Amylase [Azalia Yee 12,000 Units Capsule] 1 each PO TIDWM Losartan Potassium 100 mg PO DAILY 02/18/19 Lovastatin 20 mg PO BEDTIME 02/18/19 Montelukast Sodium [Singulair] 10 mg PO DAILY 02/18/19 Pantoprazole Sodium [Protonix] 40 mg PO DAILY 02/18/19 clonazePAM [Klonopin] 1 mg PO BID 02/18/19 - Past Medical/Surgical History Has patient received pneumonia vaccine in the past: No Diabetic: Yes -: chronic pain -: Diabetes -: HTN -: pancreatitis -: restless leg syndrome -: cancer of the lip -: whipple procedure -: bilateral shoulder surgery -: knee and back surgery - Family History Father Family History: Reviewed- Non-Contributory - Social History Smoking Status: Heavy Tobacco smoker (>10 cigarettes/day) Alcohol use: No CD- Drugs: Yes Caffeine use: Yes Place of Residence: Home Review of Systems 10-point ROS is otherwise unremarkable Physical Examination - Vital Signs Temperature: 98.4 F Blood Pressure: 133/73 Pulse: 75 Respirations: 18 Pulse Ox (%): 97 - Physical Exam General: Alert, In no apparent distress, Oriented x3 HEENT: Atraumatic, PERRLA, Mucous membr. moist/pink, EOMI, Sclerae nonicteric Neck: Supple, 2+ carotid pulse no bruit, No LAD, Without JVD or thyroid abnormality Respiratory: Clear to auscultation bilaterally, Normal air movement Cardiovascular: Regular rate/rhythm, Normal S1 S2, No murmurs Gastrointestinal: Normal bowel sounds, Soft and benign, Non-distended, No rebound, No guarding, Tenderness Musculoskeletal: No clubbing, No swelling, No tenderness Integumentary: No rashes Neurological: Normal gait, Normal speech, Normal strength at 5/5 x4 extr, Normal tone, Sensation intact, Cranial nerves 3-12 intact, Normal affect Lymphatics: No axilla or inguinal lymphadenopathy - Studies Laboratory Data (last 24 hrs) 02/17/19 20:05: Lipase Cancelled 02/17/19 20:03: PT 12.2, INR 1.04 02/17/19 20:03: WBC 18.8 H, Hgb 13.0 L, Hct 39.7, Plt Count 230 02/17/19 20:03: Sodium 139, Potassium 3.8, BUN 12, Creatinine 1.15, Glucose 191 H, Magnesium 1.9, Total Bilirubin 0.5, AST 22, ALT 28, Alkaline Phosphatase 115 , Lipase 12 L Assessment & Plan - Problems (Diagnosis) (1) Acute on chronic pancreatitis Current Visit: Yes Status: Acute (2) Chronic pain syndrome Current Visit: Yes Status: Acute (3) H/O gallbladder cancer Current Visit: Yes Status: Acute (4) Noncompliance with medication regimen Current Visit: Yes Status: Acute - Plan Plan: 1. Continue aggressive IV hydration 2. Pain control 3. Patient ran out of his Creon which resulted in this exacerbation. Patient will continue with pain control and will make him NPO in tell his nausea and vomiting improves. Will start him on a clear liquid diet in the next 24-[address] scan findings with Radiology. History of intra-abdominal abscess. No antibiotics at this time unless fever. 4. Strict blood pressure and blood sugar control-patient has an insulin pump 5. GI and DVT prophylaxis Discharge Plan: Home Plan to discharge in: Greater than 2 days - Advance Directives Does patient have a Living Will: No Does patient have a Durable POA for Healthcare: No - Code Status/Comfort Care Code Status Assessed: Yes Code Status: Full Code Critical Care: No Time Spent Managing PTS Care (In Minutes): 45
[2019-02-18] MEDS: D5 0.9 NS 1,000 ML IV SCH ×2 (09:23→19:11)
--- NOTE | 2019-02-18 09:51 | RAD REPORT ---
EXAM DESCRIPTION: CT - Abdomen Pelvis W Contrast - 02/17/2019 10:20 pm MAE NAIR [id number] - Abdomen Pelvis W Contrast EXAM DESCRIPTION: Abdomen Pelvis W Contrast CLINICAL HISTORY: 63 years Male ABD PAIN COMPARISON: October 17, 2015. TECHNIQUE: Images were obtained in axial, sagittal, and coronal planes. Intravenous contrast was adm inistered. This exam was performed according to our departmental dose-optimization program which includes use of Automated Exposure Control, adjustment of the mA and/or kV according to patient size and/or use of i terative reconstruction technique. FINDINGS: Pneumobilia identified. Gallbladder not well identified likely related to prior cholecyste ctomy. Biliary diversion procedure not excluded. No focal hepatic abnormality otherwise noted. Unrema rkable lean. Extensive calcification involving pancreas indicating chronic pancreatitis. No pseudocys t seen. Unremarkable portal vein. Punctate nonobstructing calcifications left kidney. No obstructing renal calcifications bilaterally. No hydronephrosis bilaterally. Distended bladder. Enlarged prostate gland with associated calcificati on. Appendix within normal limits. No bowel obstruction, perforation, or inflammation. Calcification abdominal aorta with no dilatation seen. No adenopathy. No abnormal fluid collections s een. No acute osseous abnormality. Dependent atelectatic change lower lungs bilaterally. IMPRESSION: Diffuse pancreatic calcifications with loss of volume involving the pancreas. The findin gs would be consistent with acute pancreatitis. Prior cholecystectomy versus biliary diversion proced ure. Pneumobilia identified. No acute intra-abdominal abnormality otherwise noted. Electronically signed by: Erica Cartagena MD 02/17/2019 10:03 PM CDT Due to temporary technical issues with the PACS/Fluency reporting system, reports are being signed by the in house radiologist as a courtesy to ensure prompt reporting. The interpreting radiologist is f ully responsible for the content of the report.
--- NOTE | 2019-02-18 10:16 | EKG ---
Test Date: 2019-02-17 Test Time: 19:55:29 Photoengraving Apprentice: MEASUREMENT RESULTS: Intervals: Rate: 92 NV: 152 QRSD: 88 QT: 344 QTc: 425 [place]: P: 56 NV: 152 QRS: 23 T: 49 INTERPRETIVE STATEMENTS: Normal sinus rhythm Cannot rule out Anterior infarct, age undetermined Abnormal ECG Compared to ECG 07/25/2018 11:36:47 Myocardial infarct finding now present Electronically Signed On 02-18-19 10:16:29 CDT by Anthony Farrar
[2019-02-18] MEDS: LIPASE/PROTEASE/AMYLASE CAP PO SCH ×3 (10:44→17:35)
[2019-02-18] MEDS: MONTELUKAST 10 MG TAB PO SCH (10:45)
[2019-02-18] MEDS: LOSARTAN POTASSIUM 50 MG TABLET PO SCH (10:45)
[2019-02-18] MEDS: GABAPENTIN 400 MG CAP PO SCH ×3 (10:45→21:42)
[2019-02-18] MEDS: clonazePAM 1 MG TAB PO SCH ×2 (10:45→21:42)
[2019-02-18] MEDS: PANTOPRAZOLE 40MG TABLET PO SCH (10:47)
[2019-02-18] MEDS: ATORVASTATIN 10 MG TAB PO SCH (21:42)
[2019-02-19] MEDS: D5 0.9 NS 1,000 ML IV SCH ×2 (03:31→17:03)
[2019-02-19] MEDS: MONTELUKAST 10 MG TAB PO SCH (09:11)
[2019-02-19] MEDS: clonazePAM 1 MG TAB PO SCH ×2 (09:11→20:29)
[2019-02-19] MEDS: LOSARTAN POTASSIUM 50 MG TABLET PO SCH (09:11)
[2019-02-19] MEDS: GABAPENTIN 400 MG CAP PO SCH ×3 (09:11→20:29)
[2019-02-19] MEDS: LIPASE/PROTEASE/AMYLASE CAP PO SCH ×3 (09:11→17:03)
[2019-02-19] MEDS: PANTOPRAZOLE 40MG TABLET PO SCH (09:12)
[2019-02-19] MEDS ORDERED: D50W 25 GM/50 ML SYRINGE IV PRN (12:36)
[2019-02-19] MEDS ORDERED: GLUCAGON 1 MG/VIAL IM PRN (12:36)
[2019-02-19] MEDS: INSULIN -REGULAR HUMAN 50 UNIT/0.5 ML ML SQ SCH ×2 (16:30→20:32)
--- NOTE | 2019-02-19 17:46 | PN ---
Date of Progress Note: 02/19/2019 Subjective: Patient seen and examined. Chart reviewed and case discussed with RN. Patient denies any chest pain. Does report some abdominal discomfort. Medications: List reviewed. Code Status: Full. Physical Examination: Vital Signs: Temperature 99.5, heart rate 83, blood pressure 126/62, respirations 16, O2 of 95% on room air. General: Awake, alert, and oriented x3. Appears older than stated age male. CV: S1, S2. Peripheral pulses present. Respiratory: Moving air well bilaterally. No wheezing. Gastrointestinal: Abdomen is soft. Minimal tenderness to palpation. No rebound or guarding. No distention. Positive bowel sounds. Extremities: No clubbing, cyanosis, or edema. Neurologic: Nonfocal. Cranial nerves 2 through 12 intact grossly. No focal neurological deficits. Speech is normal. Skin: No rashes. Normal skin turgor. Laboratory Data: Pending blood glucose levels ranging from 309-884. Assessment: A 63-year-old male with: 1. Acute on chronic pancreatitis. Continue monitor lipase level. CT scan of the abdomen and pelvis shows diffuse pancreatic calcifications with loss of volume involving the pancreas. Findings consistent with acute pancreatitis, prior cholecystectomy, versus biliary diversion procedure, pneumobilia identified. No acute intraabdominal abnormality otherwise noted. We will continue with pain control. Advance diet. Continue with Creon. Consult GI. 2. Chronic pain syndrome. Resume medications as appropriate. 3. History of gallbladder cancer, patient is status post Whipple procedure. 4. Noncompliance. 5. Nicotine dependence with cigarette smoking, counseled. 6. Diabetes mellitus type 2, insulin requiring with hyperglycemia. Patient's insulin pump apparently has run out of insulin. We will switch to sliding scale insulin until family can bring his refill medication. 7. Hyperlipidemia. Continue statin. 8. Restless legs syndrome. Plan: 1. DVT prophylaxis addressed. 2. GI consultation. 3. Likely discharge in the next 24-48 hours depending on clinical response. /MOHAMUD Voice ID: [id number] Report ID: [id number] MTDD
[2019-02-19] MEDS: ATORVASTATIN 10 MG TAB PO SCH (20:29)
[2019-02-20] MEDS: D5 0.9 NS 1,000 ML IV SCH ×2 (04:30→11:00)
[2019-02-20 05:59] LABS: Absolute Lymphocytes (CBC) 2.3 K/uL (0.7-4.9); Basophils % 0.8 % (0-1.3); Hematocrit 35.5 % (39.6-49.0); Lymphocytes % 33.2 % (15.3-44.8); MPV 10.1 fL (7.6-11.3); RBC Red Blood Cell Count 3.87 M/uL (4.33-5.43)
[2019-02-20 06:17] LABS: Albumin 3.1 g/dL (3.4-5.0); Bilirubin Total 0.5 mg/dL (0.2-1.0); Potassium 3.7 mmol/L (3.5-5.1); Protein, Total 6.3 g/dL (6.4-8.2)
[2019-02-20] MEDS: MONTELUKAST 10 MG TAB PO SCH (09:18)
[2019-02-20] MEDS: INSULIN -REGULAR HUMAN 50 UNIT/0.5 ML ML SQ SCH ×2 (09:18→12:29)
[2019-02-20] MEDS: LOSARTAN POTASSIUM 50 MG TABLET PO SCH (09:18)
[2019-02-20] MEDS: LIPASE/PROTEASE/AMYLASE CAP PO SCH ×2 (09:18→12:29)
[2019-02-20] MEDS: PANTOPRAZOLE 40MG TABLET PO SCH (09:19)
[2019-02-20] MEDS: GABAPENTIN 400 MG CAP PO SCH ×2 (09:19→13:19)
[2019-02-20] MEDS: clonazePAM 1 MG TAB PO SCH (09:19)
[2019-02-20 10:41] VITALS: O2SAT 98
[2019-02-20 12:40] VITALS: BP 140/71; TEMP 97.7
--- NOTE | 2019-02-21 02:04 | DS ---
Date of Discharge: 02/20/2019 Consultants: GI, Dr. Jimenez. Procedures: None. Admitting Diagnoses: 1.Bwunj-od-oyscdfj pancreatitis. 2.Chronic pain syndrome. 3.History of gallbladder cancer, cholangiocarcinoma. 4.Noncompliance with medication regimen. Discharge Diagnoses: 1.Vtcej-ne-khscwny pancreatitis, improving. 2.Chronic pain syndrome. 3.History of gallbladder cancer, likely cholangiocarcinoma, status post Whipple procedure. 4.Noncompliance with medication regimen, intentional. 5.Nicotine dependence with cigarette smoking, counseled. 6.Diabetes mellitus type 2, insulin requiring with hyperglycemia. 7.Mixed hyperlipidemia. 8.Restless legs syndrome. Hospital Course: Patient is a 63-year-old male who has a history of cholangiocarcinoma, status post Whipple procedure, now on Creon, with chronic pancreatitis, comes in with abdominal pain. The patien t ran out of his Creon a couple of weeks ago. Also reported some nausea and vomiting. CT scan showe d moderate inflammation, pancreatitis with calcifications seen. Patient was restarted on his Creon a nd aggressively hydrated. Patient did well over the course of the hospital stay. He responded well to conservative treatment. GI was consulted due to patient's cbrkb-sk-nwawmye pancreatitis. Patient used to follow up with a GI specialist in [facility] and was recommended to continue followup there. Dr. Jimenez did not recommend any intervention at this time. Patient did well. His pain resolved. He was able to tolerate his diet. He was afebrile. There were no signs of sepsis. His pain improved. Patient was then cleared for discharge from GI standpoint. Patient was sent home in a stable condit ion. Activity: As tolerated. Medications: As per medication reconciliation list. Followup: Follow up with PCP in 2 to 3 days. Follow up with pancreatic specialist at [facility] in 1 to 2 weeks. Return to ER for worsening condition. Discharge Instructions: Patient was counseled not to drive or operate heavy machinery while he is ta ada narcotics or benzodiazepines. He voiced understanding. Physical Examination: General: Awake, alert, oriented x3. No acute distress. Elderly male, appears older than his stated age. CV: S1, S2. Respiratory: Moving air well bilaterally. Abdomen: Soft, nontender, nondistended. Positive bowel sounds. Extremities: No clubbing, cyanosis, or edema. Neurologic: Nonfocal. Time Spent: Total time spent discharging the patient was 33 minutes. /MOHAMUD Voice ID: [id number] Report ID: [id number]
== END 2019-02-20 13:37 | disposition home or self-care (01) | DRG 440 ==
LOC: ER 19:47 → 2ND 02-18 00:07 → OBSVTOIN 02-19 11:16
PROVIDERS: ADMIT Hospitalist; ATTEND Family Medicine
DX: K85.90 Acute pancreatitis without necrosis or infection, unspecified (principal); K86.1 Other chronic pancreatitis; Z91.14 Patient's other noncompliance with medication regimen; E11.65 Type 2 diabetes mellitus with hyperglycemia; I10 Essential (primary) hypertension; E78.2 Mixed hyperlipidemia; F17.210 Nicotine dependence, cigarettes, uncomplicated; G25.81 Restless legs syndrome; G89.4 Chronic pain syndrome; Z85.09 Personal history of malignant neoplasm of other digestive organs
CPT/HCPCS: 36415; 71045; 74177; 80048; 80053; 80076; 80320; 81003; 82962; 83690; 83735; 83880; 84484; 85025; 85610; 93005; 96361; 96374; 96375; 99285; G0378; G0379; J2405; J3010; J7030; Q9967

== ENCOUNTER 2019-04-19 23:31 | Emergency (ER) | payer OTHER ==
--- OUTSIDE RECORDS SUMMARY | 2019-04-19 23:33 | XMS REPORT ---
:1955 Author Organization [facility] Address [address] [place] [address] Dr. Duvall [address] [place] [id number] Care Team Providers Name Role Phone Unavailable Unavailable Unavailable Problems This patient has no known problems. Allergies, Adverse Reactions, Alerts This patient has no known allergies or adverse reactions. Medications This patient has no known medications.
--- OUTSIDE RECORDS SUMMARY | 2019-04-19 23:33 | XMS REPORT | Summary of Care ---
:1955 Author Organization [facility] Address [address] [place] [address] Care Team Providers Name Role Phone Ray Suh MD Primary Care Provider Encounter Details Date Type Department Care Team Description 02/22/2019 Orders Only [facility] Doctor Unassigned, No [address] [facility] [place] [address] [address] [place] [id number] Allergies Active Allergy Reactions Severity Noted Date Comments Metaxalone Hives, Rash 10/31/2015 Chest pain documented as of this encounter (statuses as of 02/22/2019) Medications Medication Sig Dispensed Refills Start Date End Date Status theophylline (UNIPHYL) 0 12/29/2015 Active 600 mg 24 hr tablet insulin syringe-needle Use as directed 100 Each 0 08/29/2016 Active U-100 1 ml (INSULIN SYRINGE) 1 mL 29 gauge x 1/2" Syrg fenofibrate 145 mg TAKE 1 TABLET BY 90 tablet 3 04/20/2017 Active tablet MOUTH ONCE A DAY tadalafil (CIALIS) 20 Take 1 tablet by 8 tablet 5 02/23/2018 Active mg tablet mouth as needed for Erectile dysfunction. LOVASTATIN 20 mg TAKE 1 TABLET BY 30 tablet 0 05/11/2018 Active tablet MOUTH AT BEDTIME. CREON 12,000-38,000 TAKE 1 CAPSULE 270 capsule 2 06/08/2018 Active -60,000 unit capsule BY MOUTH 3 (THREE) TIMES DAILY WITH MEALS. NOVOLOG U-100 INSULIN USE IN INSULIN 90 mL 3 09/17/2018 Active ASPART 100 unit/mL PUMP solution LOVASTATIN 20 mg TAKE 1 TABLET BY 90 tablet 1 09/17/2018 Active tablet MOUTH EVERYDAY AT BEDTIME acyclovir 200 mg Take 4 capsules 140 capsule 0 10/13/2018 Active capsuleIndications: by mouth 5 Herpes zoster without (five) times complication daily. gabapentin 400 mg TAKE ONE CAPSULE 270 capsule 1 10/17/2018 Active capsule BY MOUTH 3 TIMES A DAY PANTOPRAZOLE 40 mg EC TAKE 1 TABLET BY 90 tablet 2 10/29/2018 Active tablet MOUTH DAILY. losartan 100 mg tablet Take 1 tablet by 90 tablet 0 12/12/2018 Active mouth daily. cyclobenzaprine 10 mg TAKE 1 TABLET BY 90 tablet 1 01/14/2019 Active tabletIndications: MOUTH THREE Chronic back pain, TIMES A DAY unspecified back NEEDED FOR location, unspecified MUSCLE SPASMS back pain laterality HYDROcodone-acetaminop Take 1 tablet by 120 tablet 0 01/28/2019 Active hen 7.5-325 mg per mouth every 6 tabletIndications: (six) hours as Other chronic pain needed for Pain. benzonatate 100 mg Take 1 capsule 30 capsule 0 02/06/2019 Active capsuleIndications: by mouth 3 Cough (three) times daily as needed for Cough. azithromycin 250 mg Take 1 tablet by 1 Package 0 02/06/2019 Active tabletIndications: mouth Cough, Lung crackles SEE-INSTRUCTIONS . Take 500 mg day 1, then 250 mg days 2 to 5. Nebulizer Accessories Use as directed 1 Kit 0 02/06/2019 Active KitIndications: Cough, SOB (shortness of breath) montelukast 10 mg Take 1 tablet by 30 tablet 0 02/06/2019 Active tabletIndications: mouth daily. Environmental allergies Nebulizers (VIXONE Dispense the 1 Each 0 02/08/2019 Active NEBULIZER-ADULT MASK) Nebulizer Mask Misc covered by Ins. He will pay out of pocket if mask not approved by Insurance. He does not need the machine. clonazePAM 1 mg Take 1 tablet by 180 tablet 0 02/19/2019 Active tabletIndications: mouth 2 (two) Anxiety times daily. 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 Abdominal pain 08/23/2016 Liver abscess 07/31/2016 Paraesophageal fluid collection 11/06/2015 Hyponatremia 11/02/2015 Hyperlipidemia 11/02/2015 Essential hypertension 11/02/2015 Normocytic anemia 11/02/2015 Thrombocytosis 11/02/2015 Pneumobilia 11/01/2015 Biliary tract cancer 11/01/2015 documented as of this encounter (statuses as of 02/22/2019) Resolved Problems Problem Noted Date Resolved Date Type 2 diabetes mellitus with hyperglycemia 11/02/2015 08/28/2016 documented as of this encounter (statuses as of 02/22/2019) Immunizations Name Administration Dates Next Due Influenza Virus Vaccine 04/07/2017 Tdap 02/23/2018 documented as of this encounter Social History Tobacco Use Types Packs/Day Years Used Date Current Every Day Smoker 1.5 30 Smokeless Tobacco: Never Used Alcohol Use Drinks/Week oz/Week Comments No 0 Standard drinks or equivalent 0.0 Sex Assigned at Date Recorded Not on file Job Start Date Occupation Industry Not on file Not on file Not on file Travel History Travel Start Travel End No recent travel history available. documented as of this encounter Last Filed Vital Signs Not on filedocumented in this encounter Plan of Treatment Date Type Specialty Care Team Description 03/20/2019 Office Visit Family Medicine Ray Suh MD [address] [place] [address] 04/12/2019 Office Visit Pulmonary Disease Guerita Lawler DO [facility] [place] [phone] 07/04/2019 Office Visit Urology Almas Hickey MD [address] [place] [address] Health Maintenance Due Date Last Done Comments HEPATITIS C (HCV) SCREEN 1955 PNEUMOCOCCAL 0-64 YEARS COMBINED 1962 SERIES (1 of 3 - PCV13) EYE EXAM 1966 URINE MICROALBUMIN 1966 Zoster Recombinant Vaccine 2006 (SHINGRIX) (1 of 2) LUNG CANCER SCREEN: Recommended 2011 for age 55-80 with 30 + pack year history LDL-C 04/20/2018 04/20/2017, 11/02/2015 CREATININE (SERUM) 06/13/2018 06/13/2017, 05/08/2017, 04/20/2017, Additional history exists HgA1C 11/29/2018 06/01/2018, 01/26/2018, 09/22/2017, Additional history exists INFLUENZA VACCINE 03/31/2019 04/07/2017 FOOT EXAM 06/01/2019 06/01/2018, 06/01/2018, 01/26/2018, Additional history exists COLONOSCOPY 05/15/2023 05/15/2013 (Previously completed) DTaP,Tdap,and Td Vaccines (2 - Td) 02/24/2028 02/23/2018 documented as of this encounter Procedures Procedure Name Priority Date/Time Associated Diagnosis Comments EXTERNAL PROVIDER Routine 02/22/2019 12:01 AM CDT RECORDS documented in this encounter Results Not on filedocumented in this encounter Insurance Payer Benefit Plan / Subscriber ID Effective Dates Phone Address Type Group MEDICARE MEDICARE PART xxxxxxxxxxx 2011-Valeria [phone] [address] Medicare A & B t 2 [id number] [place] [id number] documented as of this encounter
--- OUTSIDE RECORDS SUMMARY | 2019-04-19 23:33 | XMS REPORT | Summary of Care ---
:1955 Author Organization [facility] Address [address] [place] [address] Care Team Providers Name Role Phone Ray Suh MD Primary Care Provider Reason for Visit Reason Comments Refill Request Encounter Details Date Type Department Care Team Description 02/26/2019 Refill [facility] Family Medicine Ray Suh MD Refill Request - [address] [place] [address] [place] [phone] Allergies Active Allergy Reactions Severity Noted Date Comments Metaxalone Hives, Rash 10/31/2015 Chest pain documented as of this encounter (statuses as of 02/27/2019) Medications Medication Sig Dispensed Refills Start Date End Date Status theophylline 0 12/29/2015 Active (UNIPHYL) 600 mg 24 hr tablet insulin Use as 100 Each 0 08/29/2016 Active syringe-needle U-100 directed 1 ml (INSULIN SYRINGE) 1 mL 29 gauge x 1/2" Syrg fenofibrate 145 mg TAKE 1 TABLET 90 tablet 3 04/20/2017 Active tablet BY MOUTH ONCE A DAY tadalafil (CIALIS) Take 1 tablet 8 tablet 5 02/23/2018 Active 20 mg tablet by mouth as needed for Erectile dysfunction. LOVASTATIN 20 mg TAKE 1 TABLET 30 tablet 0 05/11/2018 Active tablet BY MOUTH AT BEDTIME. CREON 12,000-38,000 TAKE 1 CAPSULE 270 capsule 2 06/08/2018 Active -60,000 unit capsule BY MOUTH 3 (THREE) TIMES DAILY WITH MEALS. NOVOLOG U-100 USE IN INSULIN 90 mL 3 09/17/2018 Active INSULIN ASPART 100 PUMP unit/mL solution LOVASTATIN 20 mg TAKE 1 TABLET 90 tablet 1 09/17/2018 Active tablet BY MOUTH EVERYDAY AT BEDTIME acyclovir 200 mg Take 4 140 capsule 0 10/13/2018 Active capsuleIndications: capsules by Herpes zoster mouth 5 (five) without complication times daily. gabapentin 400 mg TAKE ONE 270 capsule 1 10/17/2018 Active capsule CAPSULE BY MOUTH 3 TIMES A DAY PANTOPRAZOLE 40 mg TAKE 1 TABLET 90 tablet 2 10/29/2018 Active EC tablet BY MOUTH DAILY. losartan 100 mg Take 1 tablet 90 tablet 0 12/12/2018 Active tablet by mouth daily. cyclobenzaprine 10 TAKE 1 TABLET 90 tablet 1 01/14/2019 Active mg BY MOUTH THREE tabletIndications: TIMES A DAY Chronic back pain, NEEDED FOR unspecified back MUSCLE SPASMS location, unspecified back pain laterality benzonatate 100 mg Take 1 capsule 30 capsule 0 02/06/2019 Active capsuleIndications: by mouth 3 Cough (three) times daily as needed for Cough. azithromycin 250 mg Take 1 tablet 1 Package 0 02/06/2019 Active tabletIndications: by mouth Cough, Lung crackles SEE-INSTRUCTIO NS. Take 500 mg day 1, then 250 mg days 2 to 5. Nebulizer Use as 1 Kit 0 02/06/2019 Active Accessories directed KitIndications: Cough, SOB (shortness of breath) montelukast 10 mg Take 1 tablet 30 tablet 0 02/06/2019 Active tabletIndications: by mouth Environmental daily. allergies Nebulizers (VIXONE Dispense the 1 Each 0 02/08/2019 Active NEBULIZER-ADULT Nebulizer Mask MASK) Misc covered by Ins. He will pay out of pocket if mask not approved by Insurance. He does not need the machine. clonazePAM 1 mg Take 1 tablet 180 tablet 0 02/19/2019 Active tabletIndications: by mouth 2 Anxiety (two) times daily. HYDROcodone-acetamin Take 1 tablet 120 tablet 0 02/27/2019 Active ophen 7.5-325 mg per by mouth every tabletIndications: 6 (six) hours Other chronic pain as needed for Pain. HYDROcodone-acetamin Take 1 tablet 120 tablet 0 01/28/2019 02/28/20 Discontinued ophen 7.5-325 mg per by mouth every 19 tabletIndications: 6 (six) hours Other chronic pain as needed for Pain. 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 Abdominal pain 08/23/2016 Liver abscess 07/31/2016 Paraesophageal fluid collection 11/06/2015 Hyponatremia 11/02/2015 Hyperlipidemia 11/02/2015 Essential hypertension 11/02/2015 Normocytic anemia 11/02/2015 Thrombocytosis 11/02/2015 Pneumobilia 11/01/2015 Biliary tract cancer 11/01/2015 documented as of this encounter (statuses as of 02/27/2019) Resolved Problems Problem Noted Date Resolved Date Type 2 diabetes mellitus with hyperglycemia 11/02/2015 08/28/2016 documented as of this encounter (statuses as of 02/27/2019) Immunizations Name Administration Dates Next Due Influenza [...] Office Visit Family Medicine Ray Suh MD [address] [place] [phone] 04/12/2019 Office Visit Pulmonary Disease Guerita Lawler DO [address] [place] [phone] 07/04/2019 Office Visit Urology Almas Hickey MD [address] [phone] Health Maintenance Due Date Last Done Comments [...] 02/24/2028 02/23/2018 documented as of this encounter Results Not on filedocumented in this encounter Visit Diagnoses Diagnosis Other chronic pain documented in this encounter Insurance Payer Benefit Plan / Subscriber ID Effective Dates Phone Address Type Group MEDICARE MEDICARE PART xxxxxxxxxxx 2011-Valeria [phone] [address] Medicare A & B t 2 [id number] [place] [id number] documented as of this encounter
--- OUTSIDE RECORDS SUMMARY | 2019-04-19 23:34 | XMS REPORT | Summary of Care ---
:1955 Author Organization [facility] Address [address] [place] [address] Care Team Providers Name Role Phone Ray Suh MD Primary Care Provider Reason for Visit Reason Comments Refill Request Encounter Details Date Type Department Care Team Description 02/28/2019 Refill [facility] Family Medicine Annabel Payne FNP Refill Request - [address] [facility] [address] [place] [address] [place], [place] [phone] Allergies Active Allergy Reactions Severity Noted Date Comments Metaxalone Hives, Rash 10/31/2015 Chest pain documented as of this encounter (statuses as of 03/01/2019) Medications Medication Sig Dispensed Refills Start Date [...] directed KitIndications: Cough, SOB (shortness of breath) Nebulizers ([employer] Dispense the 1 Each 0 02/08/2019 Active [...] Other chronic pain as needed for Pain. MONTELUKAST 10 mg TAKE 1 TABLET 30 tablet 0 03/01/2019 Active tabletIndications: BY MOUTH EVERY Environmental DAY allergies montelukast 10 mg Take 1 tablet 30 tablet 0 02/06/2019 02/29/20 Discontinued tabletIndications: by mouth 19 Environmental daily. 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 Abdominal pain 08/23/2016 Liver abscess 07/31/2016 Paraesophageal fluid collection 11/06/2015 Hyponatremia 11/02/2015 Hyperlipidemia 11/02/2015 Essential hypertension 11/02/2015 Normocytic anemia 11/02/2015 Thrombocytosis 11/02/2015 Pneumobilia 11/01/2015 Biliary tract cancer 11/01/2015 documented as of this encounter (statuses as of 03/01/2019) Resolved Problems Problem Noted Date Resolved Date Type 2 diabetes mellitus with hyperglycemia 11/02/2015 08/28/2016 documented as of this encounter (statuses as of 03/01/2019) Immunizations Name Administration Dates Next Due Influenza [...] Office Visit Family Medicine Ray Suh MD [address] [place] [phone] 04/12/2019 Office Visit Pulmonary Disease Guerita Lawler DO [address] [place] [phone] 07/04/2019 Office Visit Urology Almas Hickey MD [address] [phone] Health Maintenance Due Date Last Done Comments [...] filedocumented in this encounter Visit Diagnoses Diagnosis Environmental allergies Allergic rhinitis, cause unspecified documented in this encounter Insurance Payer Benefit Plan / Subscriber ID Effective Dates Phone Address Type Group MEDICARE MEDICARE PART xxxxxxxxxxx 2011-Valeria [phone] [address] Medicare A & B t 2 [id number] [id number] [id number] documented as of this encounter
--- OUTSIDE RECORDS SUMMARY | 2019-04-19 23:34 | XMS REPORT | Summary of Care ---
:1955 Author Organization [facility] Address [address] [place] [address] Care Team Providers Name Role Phone Ray Suh MD Primary Care Provider Reason for Visit Reason Comments Follow-up Pain Refill Request Encounter Details Date Type Department Care Team Description 03/20/[address] [facility] Family Ray Suh MD Other chronic pain Medicine - [address] (Primary Dx) [address] [place] [phone] Allergies Active Allergy Reactions Severity Noted Date Comments Metaxalone Hives, Rash 10/31/2015 Chest pain documented as of this encounter (statuses as of 03/20/2019) Medications Medication Sig Dispensed Refills Start Date [...] tablet mouth as needed for Erectile dysfunction. CREON 12,000-38,000 TAKE 1 CAPSULE 270 capsule [...] tablet 2 10/29/2018 Active tablet MOUTH DAILY. cyclobenzaprine 10 mg TAKE 1 TABLET BY 90 tablet 1 01/14/2019 Active tabletIndications: MOUTH THREE Chronic back pain, TIMES A DAY unspecified back NEEDED FOR location, unspecified MUSCLE SPASMS back pain laterality benzonatate 100 mg Take [...] Active KitIndications: Cough, SOB (shortness of breath) Nebulizers (Nuzzel Dispense the 1 Each 0 02/08/2019 Active NEBULIZER-ADULT MASK) Nebulizer Mask Misc covered by Ins. He will pay out of pocket if mask not approved by Insurance. He does not need the machine. clonazePAM 1 mg Take 1 tablet by 180 tablet 0 02/19/2019 Active tabletIndications: mouth 2 (two) Anxiety times daily. HYDROcodone-acetaminop Take 1 tablet by 120 tablet 0 02/27/2019 Active hen 7.5-325 mg per mouth every 6 tabletIndications: (six) hours as Other chronic pain needed for Pain. MONTELUKAST 10 mg TAKE 1 TABLET BY 30 tablet 0 03/01/2019 Active tabletIndications: MOUTH EVERY DAY Environmental allergies lovastatin 20 mg Take 1 tablet by 90 tablet 0 03/14/2019 Active tablet mouth at bedtime. losartan 100 mg tablet Take 1 tablet by 90 tablet 0 03/14/2019 Active mouth daily. 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 Abdominal pain 08/23/2016 Liver abscess 07/31/2016 Paraesophageal fluid collection 11/06/2015 Hyponatremia 11/02/2015 Hyperlipidemia 11/02/2015 Essential hypertension 11/02/2015 Normocytic anemia 11/02/2015 Thrombocytosis 11/02/2015 Pneumobilia 11/01/2015 Biliary tract cancer 11/01/2015 documented as of this encounter (statuses as of 03/20/2019) Resolved Problems Problem Noted Date Resolved Date Type 2 diabetes mellitus with hyperglycemia 11/02/2015 08/28/2016 documented as of this encounter (statuses as of 03/20/2019) Immunizations Name Administration Dates Next Due Influenza [...] of this encounter Last Filed Vital Signs Vital Sign Reading Time Taken Comments Blood Pressure 126/70 03/20/2019 1:31 PM CDT Pulse - - Temperature - - Respiratory Rate - - Oxygen Saturation - - Inhaled Oxygen Concentration - - Weight 77.6 kg (171 lb) 03/20/2019 1:31 PM CDT Height - - Body Mass Index 27.6 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 is a 63 year old male. Here for routine pain f/u Allergies Rafia is allergic to skelaxin [metaxalone]. Medications Outpatient Medications Prior to Visit Medication Sig Dispense Refill losartan 100 mg tablet Take 1 tablet by mouth daily. 90 tablet 0 lovastatin 20 mg tablet Take 1 tablet by mouth at bedtime. 90 tablet 0 MONTELUKAST 10 mg tablet TAKE 1 TABLET BY MOUTH EVERY DAY 30 tablet 0 HYDROcodone-acetaminophen 7.5-325 mg per tablet Take 1 tablet by mouth every 6 (six) hours as needed for Pain. 120 tablet 0 clonazePAM 1 mg tablet Take 1 tablet by mouth 2 (two) times daily. 180 tablet 0 Nebulizers (VIXONE NEBULIZER-ADULT MASK) [facility] Dispense the Nebulizer Mask covered by Ins. He will pay out of pocket if mask not approved by Insurance. He does not need the machine. 1 Each 0 azithromycin 250 mg tablet Take 1 tablet by mouth SEE-INSTRUCTIONS. Take 500 mg day 1, then 250 mg days 2 to 5. 1 Package 0 benzonatate 100 mg capsule Take 1 capsule by mouth 3 (three) times daily as needed for Cough. 30capsule 0 Nebulizer Accessories Kit Use as directed 1 Kit 0 cyclobenzaprine 10 mg tablet TAKE 1 TABLET BY MOUTH THREE TIMES A DAY NEEDED FOR MUSCLE SPASMS 90 tablet 1 PANTOPRAZOLE 40 mg EC tablet TAKE 1 TABLET BY MOUTH DAILY. 90 tablet 2 gabapentin 400 mg capsule TAKE ONE CAPSULE BY MOUTH 3 TIMES A DAY 270 capsule 1 acyclovir 200 mg capsule Take 4 capsules by mouth 5 (five) times daily. 140 capsule 0 LOVASTATIN 20 mg tablet TAKE 1 TABLET BY MOUTH EVERYDAY AT BEDTIME 90 tablet 1 NOVOLOG U-100 INSULIN ASPART 100 unit/mL solution USE IN INSULIN PUMP 90 mL 3 CREON 12,000-38,000 -60,000 unit capsule TAKE 1 CAPSULE BY MOUTH 3 (THREE) TIMES DAILY WITH MEALS. 270 capsule 2 tadalafil (CIALIS) 20 mg tablet Take 1 tablet by mouth as needed for Erectile dysfunction. 8 tablet 5 fenofibrate 145 mg tablet TAKE 1 TABLET BY MOUTH ONCE A DAY 90 tablet 3 insulin syringe-needle U-100 1 ml (INSULIN SYRINGE) 1 mL 29 gauge x 1/2" Syrg Use as directed 100 Each 0 theophylline (UNIPHYL) 600 mg 24 hr tablet No facility-administered medications prior to visit. Histories Past Medical History: Diagnosis Date Cancer bile duct Chronic pain disorder COPD (chronic obstructive pulmonary disease) Diabetes mellitus HLD (hyperlipidemia) HTN (hypertension) Pancreatitis Past Surgical History: Procedure Laterality Date PANCREATECTOMY WHIPPLE TYPE PROCEDURE Social History Socioeconomic History Marital status: Spouse name: Not on file Number of children: Not on file Years of education: Not on file Highest education level: Not on file Occupational History Not on file Social Needs Financial resource strain: Not on file Food insecurity: Worry: Not on file Inability: Not on file Transportation needs: Medical: Not on file Non-medical: Not on file Tobacco Use Smoking status: Current Every Day Smoker Packs/day: 1.50 Years: 30.00 Pack years: 45.00 Smokeless tobacco: Never Used Substance and Sexual Activity Alcohol use: No Alcohol/week: 0.0 oz Drug use: No Sexual activity: Not on file Lifestyle Physical activity: Days per week: Not on file Minutes per session: Not on file Stress: Not on file Relationships Social connections: Talks on phone: Not on file Gets together: Not on file Attends christian service: Not on file Active member of club or organization: Not on file Attends meetings of clubs or organizations: Not on file Relationship status: Not on file Intimate partner violence: Fear of current or ex partner: Not on file Emotionally abused: Not on file Physically abused: Not on file Forced sexual activity: Not on file Other Topics Concern Not on file Social History Narrative Lives at home with . No domestic violence Family History Problem Relation Age of Onset Diabetes Mother Hypertension Mother Hypertension Father Diabetes Father Review of Systems Vital Signs BP 126/70 | Wt 171 lb (77.6 kg) | BMI 27.60 kg/m Physical Exam Constitutional: He is oriented to person, place, and time. He appears well- developed and well-nourished. HENT: Head: Normocephalic and atraumatic. Right Ear: External ear normal. Left Ear: External ear normal. Eyes: Pupils are equal, round, and reactive to light. Cardiovascular: Normal rate, regular rhythm and normal heart sounds. Pulmonary/Chest: Effort normal and breath sounds normal. Abdominal: Soft. Musculoskeletal: Normal range of motion. Neurological: He is alert and oriented to person, place, and time. Vitals reviewed. Assessment/Plan Chronic pain, continue current meds Chronic pancreatitis This visit did not involve counseling and coordination that comprised more than 50% of the visit time.Electronically signed by Ray Suh MD at 2018 1:40 PM CDTdocumented in this encounter Plan of Treatment Date Type Specialty Care Team Description 04/12/2019 Office Visit Pulmonary Disease LawlerGuerita DO [address] [place] [phone] 07/04/2019 Office Visit Urology Almas Hickey MD [address] [facility] [address] [place] [address] Health Maintenance Due Date Last Done Comments [...] 01/26/2018, 09/22/2017, Additional history exists INFLUENZA VACCINE (#1) 2019 04/07/2017 FOOT EXAM 06/01/2019 06/01/2018, 06/01/2018, 01/26/2018, Additional history exists COLONOSCOPY 05/15/2023 05/15/2013 (Previously completed) DTaP,Tdap,and Td Vaccines (2 - Td) 02/24/2028 02/23/2018 documented as of this encounter Results Not on filedocumented in this encounter Visit Diagnoses Diagnosis Other chronic pain - Primary documented in this encounter Insurance Payer Benefit Plan / Subscriber ID Effective Dates Phone Address Type Group MEDICARE MEDICARE PART xxxxxxxxxxx 2011-Valeria [phone] [address] Medicare A & B t 2 [id number] [place] [phone] (Home) [place] [address] documented as of this encounter
--- OUTSIDE RECORDS SUMMARY | 2019-04-19 23:34 | XMS REPORT | Summary of Care ---
:1955 Author Organization [facility] Address [address] [place] [address] Care Team Providers Name Role Phone Ray Suh MD Primary Care Provider Reason for Visit Reason Comments Refill Request Encounter Details Date Type Department Care Team Description 03/14/2019 Refill [facility] Family Medicine Ray Suh MD Refill Request - [address] [place] [address] [place] [phone] Allergies Active Allergy Reactions Severity Noted Date Comments Metaxalone Hives, Rash 10/31/2015 Chest pain documented as of this encounter (statuses as of 03/14/2019) Medications Medication Sig Dispensed Refills Start Date [...] by mouth as needed for Erectile dysfunction. CREON [...] 10/29/2018 Active EC tablet BY MOUTH DAILY. cyclobenzaprine 10 TAKE 1 TABLET 90 tablet [...] KitIndications: Cough, SOB (shortness of breath) Nebulizers (Thermalin Diabetes Dispense the 1 Each 0 02/08/2019 Active [...] tabletIndications: BY MOUTH EVERY Environmental DAY allergies lovastatin 20 mg Take 1 tablet 90 tablet 0 03/14/2019 Active tablet by mouth at bedtime. losartan 100 mg Take 1 tablet 90 tablet 0 03/14/2019 Active tablet by mouth daily. LOVASTATIN 20 mg TAKE 1 TABLET 30 tablet 0 05/11/2018 03/14/20 Discontinued tablet BY MOUTH AT 19 BEDTIME. losartan 100 mg Take 1 tablet 90 tablet 0 12/12/2018 03/14/20 Discontinued tablet by mouth 19 daily. 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 Abdominal pain 08/23/2016 Liver abscess 07/31/2016 Paraesophageal fluid collection 11/06/2015 Hyponatremia 11/02/2015 Hyperlipidemia 11/02/2015 Essential hypertension 11/02/2015 Normocytic anemia 11/02/2015 Thrombocytosis 11/02/2015 Pneumobilia 11/01/2015 Biliary tract cancer 11/01/2015 documented as of this encounter (statuses as of 03/14/2019) Resolved Problems Problem Noted Date Resolved Date Type 2 diabetes mellitus with hyperglycemia 11/02/2015 08/28/2016 documented as of this encounter (statuses as of 03/14/2019) Immunizations Name Administration Dates Next Due Influenza [...] Office Visit Family Medicine Ray Suh MD [address] [place] [phone] 04/12/2019 Office Visit Pulmonary Disease Guerita Lawler DO [address] [place] [phone] 07/04/2019 Office Visit Urology Almas Hickey MD [address] [phone] Health Maintenance Due Date Last Done Comments [...] BOX Medicare A & B t 2 [id number] [place] [phone] documented as of this encounter
--- OUTSIDE RECORDS SUMMARY | 2019-04-19 23:34 | XMS REPORT | Summary of Care ---
:1955 Author Organization [facility] Address [address] [place] [address] Care Team Providers Name Role Phone Ray Suh MD Primary Care Provider Reason for Visit Reason Comments Follow-up Pain Refill Request Encounter Details Date Type Department Care Team Description 03/20/2019 Office Visit 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 [...] file Gets together: Not on file Attends baptism service: Not on file Active member of [...] 04/12/2019 Office Visit Pulmonary Disease LawlerGuerita DO [address] [place] [phone] 07/04/2019 Office Visit Urology Almas Hickey MD [address] [facility] [address] [place] [address] Health Maintenance Due Date Last Done [...] BOX Medicare A & B t 2 [id number] [place] [phone] (Home) [place] [address] documented as of this encounter
--- OUTSIDE RECORDS SUMMARY | 2019-04-19 23:35 | XMS REPORT | Summary of Care ---
:1955 Author Organization [facility] Address [address] [place] [address] Care Team Providers Name Role Phone Ray Suh MD Primary Care Provider Reason for Visit Reason Comments Rx Concern/Question tadalafil (CIALIS) 20 mg tablet Encounter Details Date Type Department Care Team Description 03/20/2019 Telephone [facility] Family Ray Suh MD Rx Concern/Question Medicine - [place] [address] (tadalafil (CIALIS) 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 Abdominal pain 08/23/2016 Liver abscess 07/31/2016 Paraesophageal fluid collection 11/06/2015 Hyponatremia 11/02/2015 Hyperlipidemia 11/02/2015 Essential hypertension 11/02/2015 Normocytic anemia 11/02/2015 Thrombocytosis 11/02/2015 Pneumobilia 11/01/2015 Biliary tract cancer 11/01/2015 documented as of this encounter (statuses as of 03/21/2019) Resolved Problems Problem Noted Date Resolved Date Type 2 diabetes mellitus with hyperglycemia 11/02/2015 08/28/2016 documented as of this encounter (statuses as of 03/21/2019) Immunizations Name Administration Dates Next Due Influenza [...] Team Description 04/12/2019 Office Visit Pulmonary Disease Guerita Lawler DO [address] [place] [phone] 05/20/2019 Office Visit Family Medicine Ray Suh MD [address] [place] [phone] 07/04/2019 Office Visit Urology Almas Hickey MD [address] [phone] Health Maintenance Due Date Last Done [...] 06/13/2018 06/13/2017, 05/08/2017, 04/20/2017, Additional history exists INFLUENZA VACCINE (#1) 2019 04/07/2017 FOOT EXAM 06/01/2019 06/01/2018, 06/01/2018, 01/26/2018, Additional history exists HgA1C 09/20/2019 03/20/2019, 06/01/2018, 01/26/2018, Additional history exists COLONOSCOPY 05/15/2023 05/15/2013 (Previously completed) DTaP,Tdap,and Td Vaccines (2 - Td) 02/24/2028 02/23/2018 documented as of this encounter Results Not on filedocumented in this encounter Insurance Payer Benefit Plan / Subscriber ID Effective Dates Phone Address Type Group MEDICARE MEDICARE PART xxxxxxxxxxx 2011-Valeria [phone] [address] Medicare A & B t 2 [id number] [place] [phone] documented as of this encounter
--- OUTSIDE RECORDS SUMMARY | 2019-04-19 23:35 | XMS REPORT | Summary of Care ---
:1955 Author Organization [facility] Address [address] [place] [address] Care Team Providers Name Role Phone Ray Suh MD Primary Care Provider Reason for Visit Reason Comments Refill Request Encounter Details Date Type Department Care Team Description 03/20/2019 Refill [facility] Family Medicine Ray Suh MD Refill Request - [address] [place] [address] [place] [phone] Allergies Active Allergy Reactions Severity Noted Date [...] Active tablet BY MOUTH ONCE A DAY CREON 12,000-38,000 TAKE 1 CAPSULE 270 capsule [...] KitIndications: Cough, SOB (shortness of breath) Nebulizers ([employer] Dispense the 1 Each 0 02/08/2019 Active [...] 0 03/14/2019 Active tablet by mouth daily. tadalafil (CIALIS) Take 1 tablet 8 tablet 5 03/21/2019 Active 20 mg by mouth as tabletIndications: needed for Erectile Erectile dysfunction, dysfunction. unspecified erectile dysfunction type tadalafil (CIALIS) Take 1 tablet 8 tablet 5 02/23/2018 03/21/20 Discontinued 20 mg tablet by mouth as 19 needed for Erectile dysfunction. documented as of this encounter (statuses as [...] Office Visit Pulmonary Disease Guerita Lawler DO [address] [place] [phone] 05/20/2019 Office Visit Family Medicine Ray Suh MD [address] [place] [phone] 07/04/2019 Office Visit Urology Almas Hickey MD [address] [phone] Health Maintenance Due Date Last Done Comments [...] filedocumented in this encounter Visit Diagnoses Diagnosis Erectile dysfunction, unspecified erectile dysfunction type - Primary documented in this encounter Insurance Payer Benefit Plan / Subscriber ID Effective Dates Phone Address Type Group MEDICARE MEDICARE PART xxxxxxxxxxx 2011-Valeria [phone] [address] Medicare A & B t 2 [id number] [place] [phone] documented as of this encounter
--- OUTSIDE RECORDS SUMMARY | 2019-04-19 23:35 | XMS REPORT | Summary of Care ---
:1955 Author Organization [facility] Address [address] [place] [address] Care Team Providers Name Role Phone Ray Suh MD Primary Care Provider Reason for Visit Reason Comments Follow-up Pain Refill Request Encounter Details Date Type Department Care Team Description 03/20/2019 Office Visit [facility] Family Ray Suh MD Other chronic pain (Primary Dx); Medicine - [address] Diabetes mellitus associated with pancreatic disease [address] [place] [phone] Allergies Active Allergy Reactions Severity Noted Date [...] KitIndications: Cough, SOB (shortness of breath) Nebulizers ([employer] Dispense the 1 Each 0 02/08/2019 Active [...] Body Mass Index 27.6 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 is a 63 year old male. Here [...] 180 tablet 0 Nebulizers (VIXONE NEBULIZER-ADULT MASK) [facility] Dispense the Nebulizer Mask covered by Ins. [...] file Gets together: Not on file Attends restoration service: Not on file Active member of [...] Office Visit Pulmonary Disease Guerita Lawler DO [address] [place] [phone] 05/20/2019 Office Visit Family Medicine Ray Suh MD [address] [place] [phone] 07/04/2019 Office Visit Urology Almas Hickey MD [address] [phone] Health Maintenance Due Date Last [...] encounter Procedures Procedure Name Priority Date/Time Associated Comments Diagnosis POCT HEMOGLOBIN A1C Routine 03/20/2019 3:00 PM Diabetes mellitus Results for this TEST CDT associated with procedure are in pancreatic disease the results section. documented in this encounter Results POCT HEMOGLOBIN A1C TEST (03/20/2019 3:00 PM CDT) POCT HBA1C 8.2 (A) 4 - 6 % Specimen Blood - CAPILLARY documented in this encounter Visit Diagnoses Diagnosis Other chronic pain - Primary Diabetes mellitus associated with pancreatic disease Type II or unspecified type diabetes mellitus with other specified manifestations, not stated as uncontrolled documented in this encounter Insurance Payer Benefit Plan / Subscriber ID Effective Dates Phone Address Type Group MEDICARE MEDICARE PART xxxxxxxxxxx 2011-Valeria [phone] [address] Medicare A & B t 2 [id number] [place] [phone] ([place]) [place] [address] documented as of this encounter
--- OUTSIDE RECORDS SUMMARY | 2019-04-19 23:35 | XMS REPORT | Summary of Care ---
:1955 Author Organization [facility] Address [address] [place] [address] Care Team Providers Name Role Phone Ray Suh MD Primary Care Provider Reason for Visit Reason Comments Follow-up Pain Refill Request Encounter Details Date Type Department Care Team Description 03/20/2019 Office Visit [facility] Family Ray Suh MD Other chronic pain (Primary Dx); Medicine - [address] Diabetes mellitus associated with pancreatic disease [address] [place] [phone] Allergies Active Allergy Reactions Severity Noted Date [...] KitIndications: Cough, SOB (shortness of breath) Nebulizers ([employer] Dispense the 1 Each 0 02/08/2019 Active [...] Body Mass Index 27.6 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 [...] file Gets together: Not on file Attends synagogue service: Not on file Active member of [...] Office Visit Pulmonary Disease Guerita Lawler DO [address] [place] [phone] 05/20/2019 Office Visit Family Medicine Ray Suh MD [address] [place] [phone] 07/04/2019 Office Visit Urology Almas Hickey MD [address] [phone] Health Maintenance Due Date Last [...] BOX Medicare A & B t 2 [id number] [place] [phone] ([place]) [place] [address] documented as of this encounter
--- OUTSIDE RECORDS SUMMARY | 2019-04-19 23:36 | XMS REPORT | Summary of Care ---
:1955 Author Organization [facility] Address [address] [place] [address] Care Team Providers Name Role Phone Ray Suh MD Primary Care Provider Reason for Visit Reason Comments Refill Request Encounter Details Date Type Department Care Team Description 04/02/2019 Refill [facility] Family Medicine Ray Suh MD Refill Request - [address] [address] [place] [address] [place] [phone] Allergies Active Allergy Reactions Severity Noted Date Comments Metaxalone Hives, Rash 10/31/2015 Chest pain documented as of this encounter (statuses as of 04/03/2019) Medications Medication Sig Dispensed Refills Start Date [...] 10/29/2018 Active EC tablet BY MOUTH DAILY. benzonatate 100 mg Take 1 capsule 30 [...] KitIndications: Cough, SOB (shortness of breath) Nebulizers ([employer] Dispense the 1 Each 0 02/08/2019 Active NEBULIZER-ADULT Nebulizer Mask MASK) Misc covered by Ins. He will pay out of pocket if mask not approved by Insurance. He does not need the machine. clonazePAM 1 mg Take 1 tablet 180 tablet 0 02/19/2019 Active tabletIndications: by mouth 2 Anxiety (two) times daily. MONTELUKAST 10 mg TAKE 1 TABLET 30 [...] Erectile dysfunction, dysfunction. unspecified erectile dysfunction type CYCLOBENZAPRINE 10 TAKE 1 TABLET 90 tablet 1 03/27/2019 Active mg BY MOUTH THREE tabletIndications: TIMES A DAY Chronic back pain, NEEDED FOR unspecified back MUSCLE SPASMS location, unspecified back pain laterality HYDROcodone-acetamin Take 1 tablet 120 tablet 0 04/03/2019 Active ophen 7.5-325 mg per by mouth every tabletIndications: 6 (six) hours Other chronic pain as needed for Pain. HYDROcodone-acetamin Take 1 tablet 120 tablet 0 02/27/2019 04/03/20 Discontinued ophen 7.5-325 mg per by mouth every 19 tabletIndications: 6 (six) hours Other chronic pain as needed for Pain. 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 Abdominal pain 08/23/2016 Liver abscess 07/31/2016 Paraesophageal fluid collection 11/06/2015 Hyponatremia 11/02/2015 Hyperlipidemia 11/02/2015 Essential hypertension 11/02/2015 Normocytic anemia 11/02/2015 Thrombocytosis 11/02/2015 Pneumobilia 11/01/2015 Biliary tract cancer 11/01/2015 documented as of this encounter (statuses as of 04/03/2019) Resolved Problems Problem Noted Date Resolved Date Type 2 diabetes mellitus with hyperglycemia 11/02/2015 08/28/2016 documented as of this encounter (statuses as of 04/03/2019) Immunizations Name Administration Dates Next Due Influenza [...] Description 04/12/2019 Office Visit Pulmonary Disease Guerita aLwler DO [address] [place] [address] 05/20/2019 Office Visit Family Medicine Ray Suh MD [address] [place] [phone] 07/04/2019 Office Visit Urology Almas Hickey MD [address] [facility] [address] [place] [address] Health Maintenance Due Date Last Done Comments [...] BOX Medicare A & B t 2 [id number] [place] [phone] documented as of this encounter
--- OUTSIDE RECORDS SUMMARY | 2019-04-19 23:36 | XMS REPORT | Summary of Care ---
:1955 Author Organization [facility] Address [address] [place] [address] Care Team Providers Name Role Phone Ray Suh MD Primary Care Provider Reason for Visit Reason Comments Refill Request Encounter Details Date Type Department Care Team Description 03/23/2019 Refill [facility] Family Medicine Ángel Basilio MD Refill Request - [address] [phone] [place] [address] Allergies Active Allergy Reactions Severity Noted Date Comments Metaxalone Hives, Rash 10/31/2015 Chest pain documented as of this encounter (statuses as of 03/27/2019) Medications Medication Sig Dispensed Refills Start Date [...] KitIndications: Cough, SOB (shortness of breath) Nebulizers ([employer] Dispense the 1 Each 0 02/08/2019 Active [...] MUSCLE SPASMS location, unspecified back pain laterality cyclobenzaprine 10 TAKE 1 TABLET 90 tablet 1 01/14/2019 03/23/20 Discontinued mg BY MOUTH THREE 19 tabletIndications: TIMES A DAY Chronic back pain, NEEDED FOR unspecified back MUSCLE SPASMS location, unspecified back pain laterality documented as of this encounter (statuses as of 03/27/2019) Active Problems Problem Noted Date Anxiety 08/21/2018 Other chronic pain 03/23/2018 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 Abdominal pain 08/23/2016 Liver abscess 07/31/2016 Paraesophageal fluid collection 11/06/2015 Hyponatremia 11/02/2015 Hyperlipidemia 11/02/2015 Essential hypertension 11/02/2015 Normocytic anemia 11/02/2015 Thrombocytosis 11/02/2015 Pneumobilia 11/01/2015 Biliary tract cancer 11/01/2015 documented as of this encounter (statuses as of 03/27/2019) Resolved Problems Problem Noted Date Resolved Date Type 2 diabetes mellitus with hyperglycemia 11/02/2015 08/28/2016 documented as of this encounter (statuses as of 03/27/2019) Immunizations Name Administration Dates Next Due Influenza [...] Office Visit Pulmonary Disease Guerita Lawler DO [address] [place] [phone] 05/20/2019 Office Visit Family Medicine Ray Suh MD [address] [place] [phone] 07/04/2019 Office Visit Urology Almas Hickey MD [address] [facility] [address] [place] [phone] Health Maintenance Due Date Last Done Comments [...] filedocumented in this encounter Visit Diagnoses Diagnosis Chronic back pain, unspecified back location, unspecified back pain laterality documented in this encounter Insurance Payer Benefit Plan / Subscriber ID Effective Dates Phone Address Type Group MEDICARE MEDICARE PART xxxxxxxxxxx 2011-Valeria [phone] [address] Medicare A & B t 2 [id number] [place] [id number] documented as of this encounter
--- OUTSIDE RECORDS SUMMARY | 2019-04-19 23:36 | XMS REPORT | Summary of Care ---
:1955 Author Organization [facility] Address [address] [place] [address] Care Team Providers Name Role Phone Ray Suh MD Primary Care Provider Reason for Visit Reason Comments Refill Request Encounter Details Date Type Department Care Team Description 03/29/[address] [facility] Family Medicine Ray Suh MD Refill Request - [address] [place] [address] [place] [phone] Allergies Active Allergy Reactions Severity Noted Date Comments Metaxalone Hives, Rash 10/31/2015 Chest pain documented as of this encounter (statuses as of 03/29/2019) Medications Medication Sig Dispensed Refills Start Date End Date Status theophylline (UNIPHYL) 0 12/29/2015 Active 600 mg 24 hr tablet insulin syringe-needle Use as directed 100 Each 0 08/29/2016 Active U-100 1 ml (INSULIN SYRINGE) 1 mL 29 gauge x 1/2" Syrg fenofibrate 145 mg TAKE 1 TABLET BY 90 tablet 3 04/20/2017 Active tablet MOUTH ONCE A DAY CREON 12,000-38,000 TAKE [...] tablet 2 10/29/2018 Active tablet MOUTH DAILY. benzonatate 100 mg Take 1 [...] KitIndications: Cough, SOB (shortness of breath) Nebulizers ([employer] Dispense the 1 Each 0 02/08/2019 Active [...] 90 tablet 0 03/14/2019 Active mouth daily. tadalafil (CIALIS) 20 Take 1 tablet by 8 tablet 5 03/21/2019 Active mg tabletIndications: mouth as needed Erectile dysfunction, for Erectile unspecified erectile dysfunction. 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 Abdominal pain 08/23/2016 Liver abscess 07/31/2016 Paraesophageal fluid collection 11/06/2015 Hyponatremia 11/02/2015 Hyperlipidemia 11/02/2015 Essential hypertension 11/02/2015 Normocytic anemia 11/02/2015 Thrombocytosis 11/02/2015 Pneumobilia 11/01/2015 Biliary tract cancer 11/01/2015 documented as of this encounter (statuses as of 03/29/2019) Resolved Problems Problem Noted Date Resolved Date Type 2 diabetes mellitus with hyperglycemia 11/02/2015 08/28/2016 documented as of this encounter (statuses as of 03/29/2019) Immunizations Name Administration Dates Next Due Influenza [...] Office Visit Pulmonary Disease Guerita Lawler DO [address] [place] [phone] 05/20/2019 Office Visit Family Medicine Ray Suh MD [address] [place] [phone] 07/04/2019 Office Visit Urology Almas Hickey MD [address] [phone] Health Maintenance Due Date Last [...] Type Group MEDICARE MEDICARE PART xxxxxxxxxxx 2011-Valeria [id number] [address] Medicare A & B t 2 [id number] [place] [id number] documented as of this encounter
--- OUTSIDE RECORDS SUMMARY | 2019-04-19 23:36 | XMS REPORT | Summary of Care ---
:1955 Author Organization [facility] Address [address] [place] [address] Care Team Providers Name Role Phone Ray Suh MD Primary Care Provider Reason for Visit Reason Comments Refill Request Encounter Details Date Type Department Care Team Description 03/27/2019 Refill [facility] Family Medicine Ray Suh MD Refill Request - [address] [address] [place] [address] [place] [phone] Allergies Active Allergy Reactions Severity Noted Date Comments Metaxalone Hives, Rash 10/31/2015 Chest pain documented as of this encounter (statuses as of 03/28/2019) Medications Medication Sig Dispensed Refills Start Date [...] KitIndications: Cough, SOB (shortness of breath) Nebulizers ([email or web address] Dispense the 1 Each 0 02/08/2019 Active [...] as of this encounter (statuses as of 03/28/2019) Active Problems Problem Noted Date Anxiety 08/21/2018 Other chronic pain 03/23/2018 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 Abdominal pain 08/23/2016 Liver abscess 07/31/2016 Paraesophageal fluid collection 11/06/2015 Hyponatremia 11/02/2015 Hyperlipidemia 11/02/2015 Essential hypertension 11/02/2015 Normocytic anemia 11/02/2015 Thrombocytosis 11/02/2015 Pneumobilia 11/01/2015 Biliary tract cancer 11/01/2015 documented as of this encounter (statuses as of 03/28/2019) Resolved Problems Problem Noted Date Resolved Date Type 2 diabetes mellitus with hyperglycemia 11/02/2015 08/28/2016 documented as of this encounter (statuses as of 03/28/2019) Immunizations Name Administration Dates Next Due Influenza [...] Office Visit Pulmonary Disease Guerita Lawler DO [address] [place] [phone] 05/20/2019 Office Visit Family Medicine Ray Suh MD [address] [place] [phone] 07/04/2019 Office Visit Urology Almas Hickey MD [address] [phone] Health Maintenance Due Date Last [...] BOX Medicare A & B t 2 [id number] [place] [phone] documented as of this encounter
--- OUTSIDE RECORDS SUMMARY | 2019-04-19 23:36 | XMS REPORT | Summary of Care ---
:1955 Author Organization [facility] Address [address] [place] [address] Care Team Providers Name Role Phone Ray Suh MD Primary Care Provider Reason for Referral (Routine) Status Reason Specialty Diagnoses / Referred By Referred To Procedures Contact Contact New Request Orthopedic Surgery Diagnoses Chronic pain of right hip Chronic pain of right knee Glenys Suh Craig Procedures CONSULT/REFERRAL ORTHOPAEDIC SURGERY MD David Bell, [address] [place] [phone] Phone: Fax: Reason for Visit Reason Comments Referral/consult Encounter Details Date Type Department Care Team Description 04/10/2019 Telephone [facility] Family Ray Suh MD Referral/consult Medicine - [address] [phone] Allergies Active Allergy Reactions Severity Noted Date Comments Metaxalone Hives, Rash 10/31/2015 Chest pain documented as of this encounter (statuses as of 04/15/2019) Medications Medication Sig Dispensed Refills Start Date [...] KitIndications: Cough, SOB (shortness of breath) Nebulizers ([email or web address] Dispense the 1 Each 0 02/08/2019 Active NEBULIZER-ADULT MASK) Nebulizer Mask Misc covered by Ins. He will pay out of pocket if mask not approved by Insurance. He does not need the machine. clonazePAM 1 mg Take 1 tablet by 180 tablet 0 02/19/2019 Active tabletIndications: mouth 2 (two) Anxiety times daily. MONTELUKAST 10 mg TAKE 1 TABLET BY [...] Take 1 tablet by 120 tablet 0 04/03/2019 Active hen 7.5-325 mg per mouth every 6 tabletIndications: (six) hours as Other chronic pain needed for Pain. 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 Abdominal pain 08/23/2016 Liver abscess 07/31/2016 Paraesophageal fluid collection 11/06/2015 Hyponatremia 11/02/2015 Hyperlipidemia 11/02/2015 Essential hypertension 11/02/2015 Normocytic anemia 11/02/2015 Thrombocytosis 11/02/2015 Pneumobilia 11/01/2015 Biliary tract cancer 11/01/2015 documented as of this encounter (statuses as of 04/15/2019) Resolved Problems Problem Noted Date Resolved Date Type 2 diabetes mellitus with hyperglycemia 11/02/2015 08/28/2016 documented as of this encounter (statuses as of 04/15/2019) Immunizations Name Administration Dates Next Due Influenza [...] Treatment Date Type Specialty Care Team Description 05/20/2019 Office Visit Family Medicine Ray Suh MD [address] [place] [phone] 07/04/2019 Office Visit Urology Almas Hickey MD [address] [address] [phone] Health Maintenance Due Date Last Done Comments [...] in this encounter Visit Diagnoses Diagnosis Chronic pain of right hip - Primary Chronic pain of right knee documented in this encounter Insurance Payer Benefit Plan / Subscriber ID Effective Dates Phone Address Type Group MEDICARE MEDICARE PART xxxxxxxxxxx 2011-Valeria [phone] [address] Medicare A & B t 2 [id number] [place] [id number] documented as of this encounter
--- NOTE | 2019-04-20 00:11 | ER ---
Nurse's Notes [facility] Name: Rafia Segundo Age: 63 yrs Sex: Male : 1955 Arrival Date: 04/19/2019 Time: 23:35 Bed 5 Private MD: Diagnosis: Insect bite (nonvenomous), left lower leg;Cellulitis and acute lymphangitis of other parts of limb;Type 2 diabetes mellitus;Tobacco abuse counseling;Tobacco use Presentation: 04/19 23:40 Presenting complaint: Patient states: that he noticed 4 days ago that he had what he fc thinks is a spider bite to lower left thigh just above the knee. Area is red and tender with black spot in the center. Transition of care: patient was not received from another setting of care. Onset of symptoms was April 15, 2019. Risk Assessment: Do you want to hurt yourself or someone else? Patient reports no desire to harm self or others. Initial Sepsis Screen: Does the patient meet any 2 criteria? No. Patient's initial sepsis screen is negative. Does the patient have a suspected source of infection? No. Patient's initial sepsis screen is negative. Care prior to arrival: None. 23:40 Method Of Arrival: Ambulatory 23:40 Acuity: ARBEN 4 Triage Assessment: 23:47 Bite description: bite sustained to left lower thigh is patient thinks it's a spider cc3 bite was sustained 4 days ago by a spider, animal information: vaccination(s) is not applicable. General: Appears in no apparent distress. comfortable, Behavior is calm, cooperative, appropriate for age. Pain: Complains of pain in left leg and medial aspect of left knee. EENT: No signs and/or symptoms were reported regarding the EENT system. Neuro: Level of Consciousness is awake, alert, obeys commands, Oriented to person, place, time, situation, Appropriate for age. Cardiovascular: Denies chest pain, Capillary refill < 3 seconds Patient's skin is warm and dry. Respiratory: Airway is patent Respiratory effort is even, unlabored, Respiratory pattern is regular, symmetrical. GI: Abdomen is round non-distended. : No signs and/or symptoms were reported regarding the genitourinary system. Derm: Skin is intact, is healthy with good turgor, Skin is pink, warm \T\ dry. normal. Musculoskeletal: Circulation, motion, and sensation intact. Range of motion: intact in all extremities. Historical: - Allergies: 23:56 Skelaxin; fc - Home Meds: 23:56 Creon 12,000-38,000 -60,000 unit Oral cpDR 1 caps 3 times per day [Active]; Flexeril 10 fc mg Oral tab 1 tab 3 times per day [Active]; clonazepam 1 mg Oral tab 1 tab 2 times per day [Active]; Derby 7.5-325 mg Oral tab 1 tab every 6 hours [Active]; gabapentin 400 mg Oral cap 1 cap 3 times per day [Active]; Humalog 100 unit/mL Sub-Q soln 1 Pt has basal rate insulin and boluses based on card intake [Active]; losartan 100 mg Oral tab 1 tab once daily [Active]; lovastatin 20 mg Oral tab 1 tab once daily [Active]; pantoprazole 40 mg Oral TbEC 1 tab once daily [Active]; - PMHx: 23:56 Cancer of gall bladder duct; Chronic pain; Back pain; Diabetes - IDDM; Pancreatitis; Hypertension; Insulin pump; RESTLESS LEG SYN; - PSHx: 23:56 whipple; shoulder surg; elbow surg; Knee surgery; hand surg; Cholecystectomy; fc Appendectomy; - Immunization history:: Last tetanus immunization: unknown. - Social history:: Smoking status: Patient uses tobacco products, smokes 1.5 packs per day, Patient/guardian denies using alcohol, street drugs. - Ebola Screening: : Patient negative for fever greater than or equal to 101.5 degrees Fahrenheit, and additional compatible Ebola Virus Disease symptoms Patient denies exposure to infectious person Patient denies travel to an Ebola-affected area in the 21 days before illness onset. - Family history:: not pertinent. Screenin:47 Abuse screen: Denies threats or abuse. Denies injuries from another. Nutritional cc3 screening: No deficits noted. Tuberculosis screening: No symptoms or risk factors identified. Fall Risk Ambulatory Aid- None/Bed Rest/Nurse Assist (0 pts). Gait- Normal/Bed Rest/Wheelchair (0 pts) Mental Status- Oriented to own ability (0 pts). Assessment: 23:47 General: see triage assessment. cc3 04/20 00:30 Reassessment: Patient appears in no apparent distress at this time. Patient and/or cc3 family updated on plan of care and expected duration. Pain level reassessed. Patient is alert, oriented x 3, equal unlabored respirations, skin warm/dry/pink. Wound cleaning and dressing done. Dr. Fragoso discharged the patient home with prescriptions given. No IV cannula in situ. Patient left ER vitally stable and ambulatory with his family. NO valuables left in the patient's room. Patient denies pain at this time. Patient states feeling better. Patient states symptoms have improved. Vital Signs: 04/19 23:40 BP 170 / 74; Pulse 87; Resp 18; Temp 97.6(O); Pulse Ox 95% on R/A; Weight 78.02 kg (R); fc Height 5 ft. 9 in. (175.26 cm) (R); Pain 11/07; 04/20 00:30 BP 154 / 70; Pulse 85; Resp 19 S; Pulse Ox 96% on R/A; cc3 04/19 23:40 Body Mass Index 25.40 (78.02 kg, 175.26 cm) ED Course: 04/19 23:35 Patient arrived in ED. cl3 23:39 Antoine Fragoso MD is Attending Physician. carmela 23:40 Arm band placed on Patient placed in an exam room, on a stretcher. fc 23:47 Vivien Morton is Primary Nurse. cc3 23:47 Patient has correct armband on for positive identification. Bed in low position. Call cc3 light in reach. Side rails up X 1. Pulse ox on. NIBP on. 23:50 Triage completed. 04/20 00:06 Santo Garcia MD is Referral Physician. carmela 00:30 No provider procedures requiring assistance completed. cc3 00:30 Patient did not have IV access during this emergency room visit. cc3 Administered Medications: 00:10 Drug: Doxycycline 200 mg Route: PO; cc3 00:30 Follow up: Response: No adverse reaction cc3 00:10 Drug: Bactrim (160 mg-800 mg (DS) 1 tablet Route: PO; cc3 00:30 Follow up: Response: No adverse reaction cc3 00:20 Drug: Bactroban Ointment 2 % 1 application Route: Topical; Site: affected area; cc3 00:30 Follow up: Response: No adverse reaction cc3 Point of Care Testing: Blood Glucose: 00:26 Blood Glucose: 94 mg/dL; cc3 Ranges: Outcome: 00:08 Discharge ordered by . carmela 00:30 Discharged to home ambulatory. cc3 00:30 Condition: stable 00:30 Discharge instructions given to patient, Instructed on discharge instructions, follow up and referral plans. medication usage, Demonstrated understanding of instructions, follow-up care, medications, Prescriptions given X 3. 00:37 Patient left the ED. cc3 Signatures: Antoine Fragoso MD MD cha Chretien, Felicia, RN RN Vivien Butler cc3 Jane Browne 3
--- NOTE | 2019-04-20 00:12 | EDPHYS ---
Physician Documentation [facility] Name: Rafia Segundo Age: 63 yrs Sex: Male : 1955 Arrival Date: 04/19/2019 Time: 23:35 Bed 5 Private MD: VALERIY Physician Antoine Fragoso HPI: 04/20 00:03 This 63 yrs old Male presents to ER via Ambulatory with complaints of Insect carmela Bite. 00:03 The patient presents with pain, swelling, tenderness. The complaints affect the medial carmela aspect of left knee. Context: The problem was sustained at an unknown site, resulted from an unknown cause, the patient can fully bear weight. Onset: The symptoms/episode began/occurred 5 day(s) ago. Modifying factors: The symptoms are alleviated by nothing. the symptoms are aggravated by nothing. Associated signs and symptoms: The patient has no apparent associated signs or symptoms. Treatment prior to arrival includes: no previous treatment. Severity of symptoms: At their worst the symptoms were mild, in the emergency department the symptoms are unchanged. The patient has not experienced similar symptoms in the past. Historical: - Allergies: 04/19 23:56 Skelaxin; fc - Home Meds: 23:56 Creon 12,000-38,000 -60,000 unit Oral cpDR 1 caps 3 times per day [Active]; Flexeril 10 fc mg Oral tab 1 tab 3 times per day [Active]; clonazepam 1 mg Oral tab 1 tab 2 times per day [Active]; Dumont 7.5-325 mg Oral tab 1 tab every 6 hours [Active]; gabapentin 400 mg Oral cap 1 cap 3 times per day [Active]; Humalog 100 unit/mL Sub-Q soln 1 Pt has basal rate insulin and boluses based on card intake [Active]; losartan 100 mg Oral tab 1 tab once daily [Active]; lovastatin 20 mg Oral tab 1 tab once daily [Active]; pantoprazole 40 mg Oral TbEC 1 tab once daily [Active]; - PMHx: 23:56 Cancer of gall bladder duct; Chronic pain; Back pain; Diabetes - IDDM; Pancreatitis; Hypertension; Insulin pump; RESTLESS LEG SYN; - PSHx: 23:56 whipple; shoulder surg; elbow surg; Knee surgery; hand surg; Cholecystectomy; fc Appendectomy; - Immunization history:: Last tetanus immunization: unknown. - Social history:: Smoking status: Patient uses tobacco products, smokes 1.5 packs per day, Patient/guardian denies using alcohol, street drugs. - Ebola Screening: : Patient negative for fever greater than or equal to 101.5 degrees Fahrenheit, and additional compatible Ebola Virus Disease symptoms Patient denies exposure to infectious person Patient denies travel to an Ebola-affected area in the 21 days before illness onset. - Family history:: not pertinent. ROS: 04/20 00:03 Constitutional: Negative for fever, chills, and weight loss, Eyes: Negative for injury, carmela pain, redness, and discharge, ENT: Negative for injury, pain, and discharge, Neck: Negative for injury, pain, and swelling, Cardiovascular: Negative for chest pain, palpitations, and edema, Respiratory: Negative for shortness of breath, cough, wheezing, and pleuritic chest pain, Abdomen/GI: Negative for abdominal pain, nausea, vomiting, diarrhea, and constipation, Back: Negative for injury and pain, : Negative for injury, bleeding, discharge, and swelling, MS/Extremity: Negative for injury and deformity, Neuro: Negative for headache, weakness, numbness, tingling, and seizure, Psych: Negative for depression, anxiety, suicide ideation, homicidal ideation, and hallucinations, Allergy/Immunology: Negative for hives, rash, and allergies, Endocrine: Negative for neck swelling, polydipsia, polyuria, polyphagia, and marked weight changes, Hematologic/Lymphatic: Negative for swollen nodes, abnormal bleeding, and unusual bruising. Skin: Positive for erythema, swelling, of the medial aspect of left knee. Exam: 00:03 Constitutional: This is a well developed, well nourished patient who is awake, alert, carmela and in no acute distress. Head/Face: Normocephalic, atraumatic. Eyes: Pupils equal round and reactive to light, extra-ocular motions intact. Lids and lashes normal. Conjunctiva and sclera are non-icteric and not injected. Cornea within normal limits. Periorbital areas with no swelling, redness, or edema. ENT: Nares patent. No nasal discharge, no septal abnormalities noted. Tympanic membranes are normal and external auditory canals are clear. Oropharynx with no redness, swelling, or masses, exudates, or evidence of obstruction, uvula midline. Mucous membranes moist. Neck: Trachea midline, no thyromegaly or masses palpated, and no cervical lymphadenopathy. Supple, full range of motion without nuchal rigidity, or vertebral point tenderness. No Meningismus. Chest/axilla: Normal chest wall appearance and motion. Nontender with no deformity. No lesions are appreciated. Cardiovascular: Regular rate and rhythm with a normal S1 and S2. No gallops, murmurs, or rubs. Normal PMI, no JVD. No pulse deficits. Respiratory: Lungs have equal breath sounds bilaterally, clear to auscultation and percussion. No rales, rhonchi or wheezes noted. No increased work of breathing, no retractions or nasal flaring. Abdomen/GI: Soft, non-tender, with normal bowel sounds. No distension or tympany. No guarding or rebound. No evidence of tenderness throughout. Back: No spinal tenderness. No costovertebral tenderness. Full range of motion. Male : Normal genitalia with no discharge or lesions. MS/ Extremity: Pulses equal, no cyanosis. Neurovascular intact. Full, normal range of motion. Neuro: Awake and alert, GCS 15, oriented to person, place, time, and situation. Cranial nerves II-XII grossly intact. Motor strength 5/5 in all extremities. Sensory grossly intact. Cerebellar exam normal. Normal gait. Psych: Awake, alert, with orientation to person, place and time. Behavior, mood, and affect are within normal limits. 00:03 Skin: abscess, not appreciated, cellulitis, that is mild, induration, that is mild is noted, injury, is not appreciated, no rash present. Vital Signs: 04/19 23:40 BP 170 / 74; Pulse 87; Resp 18; Temp 97.6(O); Pulse Ox 95% on R/A; Weight 78.02 kg (R); fc Height 5 ft. 9 in. (175.26 cm) (R); Pain 4/10; 04/20 00:30 BP 154 / 70; Pulse 85; Resp 19 S; Pulse Ox 96% on R/A; cc3 04/19 23:40 Body Mass Index 25.40 (78.02 kg, 175.26 cm) fc MDM: 04/19 23:39 Patient medically screened. [facility] 04/20 00:06 Data reviewed: vital signs, nurses notes, lab test result(s). [facility] 04/20 00:03 Order name: Blood Glucose Level; Complete Time: 00:27 [facility] 04/20 00:03 Order name: Wound dressing; Complete Time: 00:24 [facility] Administered Medications: 00:10 Drug: Doxycycline 200 mg Route: PO; cc3 00:30 Follow up: Response: No adverse reaction cc3 00:10 Drug: Bactrim (160 mg-800 mg (DS) 1 tablet Route: PO; cc3 00:30 Follow up: Response: No adverse reaction cc3 00:20 Drug: Bactroban Ointment 2 % 1 application Route: Topical; Site: affected area; cc3 00:30 Follow up: Response: No adverse reaction cc3 Point of Care Testing: Blood Glucose: 00: Blood Glucose: 94 mg/dL; cc3 Ranges: Critical Glucose Levels:Adult <50 mg/dl or >400 mg/dl <40 mg/dl or >180 mg/dl Disposition: 04/20/19 00:08 Discharged to Home. Impression: Insect bite (nonvenomous), left lower leg, Cellulitis and acute lymphangitis of other parts of limb, Type 2 diabetes mellitus, Tobacco abuse counseling, Tobacco use. - Condition is Stable. - Discharge Instructions: Insect Bite, Mqxe-lk-Auam, Insect Bite, Type 2 Diabetes Mellitus, Diagnosis, Adult, Steps to Quit Smoking, Smoking Hazards, Cellulitis, Adult, Wboz-gr-Yvth, Diabetes Mellitus and Food, Type 2 Diabetes Mellitus, Diagnosis, Adult, Xmlj-la-Olpr. - Prescriptions for Bactroban 2 % Topical Ointment - Apply to affected area 1 application by TOPICAL route every 8 hours; 30 gram. Doxycycline Hyclate 100 mg Oral Tablet - take 1 tablet by ORAL route every 12 hours; 20 tablet. Bactrim DS 800- 160 mg Oral Tablet - take 1 tablet by ORAL route every 12 hours for 10 days; 20 tablet. - Medication Reconciliation Form, Thank You Letter, Antibiotic Education, Prescription Opioid Use form. - Follow up: Private Physician; When: 2 - 3 days; Reason: Recheck today's complaints, Continuance of care, Re-evaluation by your physician. Follow up: Santo Garcia MD; When: 2 - 3 days; Reason: Recheck today's complaints, Continuance of care, Re-evaluation by your physician. - Problem is new. - Symptoms have improved. Signatures: Antoine Fragoso MD MD cha Chretien, Felicia, RN RN Vivien Morton 3 Corrections: (The following items were deleted from the chart) 00:08 00:08 04/20/2019 00:08 Discharged to Home. Impression: Insect bite (nonvenomous), left carmela lower leg; Cellulitis and acute lymphangitis of other parts of limb. Condition is Stable. Forms are Medication Reconciliation Form, Thank You Letter, Antibiotic Education, Prescription Opioid Use. Follow up: Private Physician; When: 2 - 3 days; Reason: Recheck today's complaints, Continuance of care, Re-evaluation by your physician. Follow up: Santo Garcia; When: 2 - 3 days; Reason: Recheck today's complaints, Continuance of care, Re-evaluation by your physician. Problem is new. Symptoms have improved. [facility] 00:10 00:08 04/20/2019 00:08 Discharged to Home. Impression: Insect bite (nonvenomous), left carmela lower leg; Cellulitis and acute lymphangitis of other parts of limb; Type 2 diabetes mellitus. Condition is Stable. Forms are Medication Reconciliation Form, Thank You Letter, Antibiotic Education, Prescription Opioid Use. Follow up: Private Physician; When: 2 - 3 days; Reason: Recheck today's complaints, Continuance of care, Re-evaluation by your physician. Follow up: Santo Garcia; When: 2 - 3 days; Reason: Recheck today's complaints, Continuance of care, Re-evaluation by your physician. Problem is new. Symptoms have improved. [facility] 00:37 00:10 04/20/2019 00:08 Discharged to Home. Impression: Insect bite (nonvenomous), left cc3 lower leg; Cellulitis and acute lymphangitis of other parts of limb; Type 2 diabetes mellitus; Tobacco abuse counseling; Tobacco use. Condition is Stable. Discharge Instructions: Insect Bite, Wfju-tx-Fwct, Insect Bite, Type 2 Diabetes Mellitus, Diagnosis, Adult, Cellulitis, Adult, Acsi-qh-Pcym, Diabetes Mellitus and Food, Type 2 Diabetes Mellitus, Diagnosis, Adult, Fhzm-rn-Yhwc. Prescriptions for Bactroban 2 % Topical Ointment - Apply to affected area 1 application by TOPICAL route every 8 hours; 30 gram, Doxycycline Hyclate 100 mg Oral Tablet - take 1 tablet by ORAL route every 12 hours; 20 tablet, Bactrim DS 800-160 mg Oral Tablet - take 1 tablet by ORAL route every 12 hours for 10 days; 20 tablet. and Forms are Medication Reconciliation Form, Thank You Letter, Antibiotic Education, Prescription Opioid Use. Follow up: Private Physician; When: 2 - 3 days; Reason: Recheck today's complaints, Continuance of care, Re-evaluation by your physician. Follow up: Santo Garcia; When: 2 - 3 days; Reason: Recheck today's complaints, Continuance of care, Re-evaluation by your physician. Problem is new. Symptoms have improved. carmela
[2019-04-20] MEDS ORDERED: MUPIROCIN 2% OINT 22GM TUBE TOP ONE (00:13)
[2019-04-20] MEDS ORDERED: SMZ./TMP. 800/160 MG TABLET ONE (00:13)
[2019-04-20] MEDS ORDERED: DOXYCYCLINE 100 MG CAP PO ONE (00:13)
[2019-04-20 01:20] VITALS: BP 154/70; O2SAT 96
[2019-04-20 01:34] VITALS: TEMP 97.4
== END 2019-04-20 00:37 | disposition home or self-care (01) ==
LOC: ER 23:31
DX: S80.862A Insect bite (nonvenomous), left lower leg, initial encounter (principal); L03.116 Cellulitis of left lower limb; I89.1 Lymphangitis; E11.9 Type 2 diabetes mellitus without complications; Z72.0 Tobacco use; Z71.6 Tobacco abuse counseling; Z88.8 Allergy status to other drugs, medicaments and biological substances
CPT/HCPCS: 82962; 99283

== ENCOUNTER 2020-01-25 19:15 | Observation (INO) | payer OTHER, SELFPAY ==
--- OUTSIDE RECORDS SUMMARY | 2020-01-25 19:31 | XMS REPORT | Continuity of Care Document ---
:1955 Author Organization [facility] t Address [address] [place] [address] Care Team Providers Name Role Phone Venu BUSH Attending Clinician Vikash BUSH Attending Clinician Bucky MARTINEZ Attending Clinician Problems This patient has no known problems. Allergies, Adverse Reactions, Alerts This patient has no known allergies or adverse reactions. Medications This patient has no known medications. Procedures This patient has no known procedures. Encounters Start End Encounter Admission Attending Care Care Encounter Source Date/Time Date/Time Type Type Clinicians Facility Department ID 2020-01-21 2020-01-21 [facility] [id number] 00:00:00 00:00:00 Constantine Sanchez [id number] [place] [id number] Professio [phone] nal 220 [facility] 2020-01-14 2020-01-14 Telephone [facility] [id number] 00:00:00 00:00:00 Ray Sanchez [id number] [place] [id number] Professio [phone] nal 044 [facility] 2020-01-08 2020-01-08 Refill [facility] [id number] 00:00:00 00:00:00 [facility] [id number] [place] [id number] Professio [phone] nal 0[address] 2019-12-20 2019-12-20 Telemedici Bucky [facility] [id number] 08:17:31 08:37:31 ne Visit Guerita Sanchez [id number] [place] [id number] Professio [phone] [facility] 085 Building 2019-12-12 2019-12-12 [place] [facility] [id number] 00:00:00 00:00:00 [facility] [id number] [place] [id number] Professio [phone] [place] [address] [address] 2019-12-09 2019-12-09 Refill [facility] [id number] 00:00:00 00:00:00 [facility] [id number] [place] [id number] Professio [phone] [place] [address] [address] 2019-12-06 2019-12-06 Refill [facility] [id number] 00:00:00 00:00:00 [facility] [id number] [place] [id number] Professio [phone] [place] [address] [address] 2019-10-11 2019-10-11 Office [facility] [id number] 11:53:08 12:47:38 Visit Guerita Sanchez [id number] [place] [id number] Professio [phone] [address] Results This patient has no known results.
--- OUTSIDE RECORDS SUMMARY | 2020-01-25 19:32 | XMS REPORT | Summary of Care ---
:1955 Author Organization [facility] Address [address] [place] [id number] Care Team Providers Name Role Phone MD Vikash Primary Care Provider Reason for Visit Reason Comments Refill Request Encounter Details Date Type Department Care Team Description 11/03/2019 Refill [facility] Pediatric and Ray Suh MD Refill Request Adult Primary Care- [address] [place] [address] [place] [address] , [address] [place] [address] Allergies Active Allergy Reactions Severity Noted Date Comments Metaxalone Hives, Rash 10/31/2015 Chest pain documented as of this encounter (statuses as of 11/04/2019) Medications Medication Sig Dispensed Refills Start End Date Status Date NOVOLOG U-100 USE IN 90 mL 3 Active INSULIN ASPART 100 INSULIN PUMP 9 unit/mL solution LOVASTATIN 20 mg TAKE 1 TABLET 90 tablet 1 Active tablet BY MOUTH 9 EVERYDAY AT BEDTIME Nebulizer Use as 1 Kit 0 Active Accessories directed 9 KitIndications: Cough, SOB (shortness of breath) Nebulizers (VIXONE Dispense the 1 Each 0 Active NEBULIZER-ADULT Nebulizer 9 MASK) Misc Mask covered by Ins. He will pay out of pocket if mask not approved by Insurance. He does not need the machine. MONTELUKAST 10 mg TAKE 1 TABLET 30 tablet 0 Active tabletIndications: BY MOUTH 9 Environmental EVERY DAY allergies tadalafil (CIALIS) Take 1 tablet 8 tablet 5 Active 20 mg by mouth as 9 tabletIndications: needed for Erectile Erectile dysfunction, dysfunction. unspecified erectile dysfunction type Diclofenac Sodium Apply 2mg-4mg 100 g 1 Active (VOLTAREN) 1 % to affected 9 gelIndications: area 4 times Right knee pain, daily unspecified chronicity albuterol 90 Inhale 2 8.5 g 11 Active mcg/actuation Puffs every 6 9 inhalerIndications: (six) hours Upper respiratory as needed for tract infection, Wheezing or unspecified type, Shortness of Dyspnea on exertion Breath. tusifu-lpvdwjtp-lild Take 1 270 capsule 2 Active ase (CREON) capsule by 9 12,000-38,000 mouth 3 -60,000 unit (three) times capsuleIndications: daily with Other chronic pain meals. CYCLOBENZAPRINE 10 TAKE 1 TABLET 90 tablet 1 Active mg BY MOUTH 0 tabletIndications: THREE TIMES A Chronic back pain, DAY NEEDED unspecified back FOR MUSCLE location, SPASMS unspecified back pain laterality gabapentin 400 mg TAKE 1 270 capsule 1 Active capsule CAPSULE BY 0 MOUTH THREE TIMES A DAY CLONAZEPAM 1 mg TAKE 1 TABLET 180 tablet 0 Active tabletIndications: BY MOUTH 0 Anxiety TWICE A DAY LOVASTATIN 20 mg TAKE 1 TABLET 90 tablet 0 Active tablet BY MOUTH 0 EVERYDAY AT BEDTIME LOSARTAN 100 mg TAKE 1 TABLET 90 tablet 0 Active tablet BY MOUTH 0 EVERY DAY doxycycline hyclate Take 1 tablet 20 tablet 0 Active 100 mg by mouth 2 0 tabletIndications: (two) times Folliculitis daily. fluticasone Use 2 Sprays 16 g 11 Activ e propionate 50 in each 0 mcg/actuation nasal nostril sprayIndications: daily. Cough HYDROcodone-acetamin Take 1 tablet 120 tablet 0 Active ophen 7.5-325 mg per by mouth 0 tabletIndications: every 6 (six) Other chronic pain hours as needed for Pain. pantoprazole 40 mg Take 1 tablet 90 tablet 2 Active EC by mouth 0 tabletIndications: daily. Gastroesophageal reflux disease, esophagitis presence not specified PANTOPRAZOLE 40 mg TAKE 1 TABLET 90 tablet 2 04/05/2 0 Discontinued EC tablet BY MOUTH 0 20 (Reorder) EVERY DAY HYDROcodone-acetamin Take 1 tablet 120 tablet 0 04/0 01/17 Discontinued ophen 7.5-325 mg per by mouth 0 20 (Reorder) tabletIndications: every 6 (six) Other chronic pain hours as needed for Pain. documented as of this encounter (statuses as of 11/04/2019) Active Problems Problem Noted Date Anxiety 08/21/2018 Other chronic pain 03/23/2018 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 Abdominal pain 08/23/2016 Liver abscess 07/31/2016 Paraesophageal fluid collection 11/06/2015 Hyponatremia 11/02/2015 Hyperlipidemia 11/02/2015 Essential hypertension 11/02/2015 Normocytic anemia 11/02/2015 Thrombocytosis 11/02/2015 Pneumobilia 11/01/2015 Biliary tract cancer 11/01/2015 documented as of this encounter (statuses as of 11/04/2019) Resolved Problems Problem Noted Date Resolved Date Type 2 diabetes mellitus with hyperglycemia 11/02/2015 08/28/2016 documented as of this encounter (statuses as of 11/04/2019) Immunizations Name Administration Dates Next Due Influenza Virus Vaccine 04/07/2017 Influenza Virus Vaccine Quad .5 mL IM 6+ MO 03/31/2019 Tdap 02/23/2018 documented as of this encounter [...] Treatment Date Type Specialty Care Team Description 11/21/2019 Telemedicine Visit Family Medicine Geoffrey Suh MD [address] [place] [phone] 12/20/2019 Office Visit Pulmonary Disease Guerita Lawler DO [address] [place] [address] 02/04/2020 Office Visit Endocrinology Diabetes & Duc Lea MD Metabolism [address] [place] [address] Health Maintenance Due Date Last Done Comments HEPATITIS C (HCV) SCREEN 1955 PNEUMOCOCCAL 0-64 YEARS 1961 COMBINED SERIES (1 of 3 - PCV13) Zoster Recombinant Vaccine 2006 (SHINGRIX) (1 of 2) EYE EXAM 01/16/2020 Postponed from 1966 ([place] / Financial) HgA1C 04/03/2020 10/02/2019, 06/04/2019, 03/20/2019, Additional history exists CREATININE (SERUM) 06/04/2020 06/04/2019, 06/13/2017, 05/08/2017, Additional history exists FOOT EXAM 06/04/2020 06/04/2019, 06/04/2019, 06/01/2018, Additional history exists LDL-C 06/04/2020 06/04/2019, 04/20/2017, 11/02/2015 URINE MICROALBUMIN 06/04/2020 06/04/2019 LUNG CANCER SCREEN: 10/22/2020 10/23/2019 Recommended for age 55-80 with 30 + pack year history COLONOSCOPY 05/15/2023 05/15/2013 (Previously completed) DTaP,Tdap,and Td Vaccines 02/24/2028 02/23/2018 (2 - Td) INFLUENZA VACCINE Completed 03/31/2019, 04/07/2017 documented as of this encounter Results Not on filedocumented in this encounter Visit Diagnoses Diagnosis Gastroesophageal reflux disease, esophag itis presence not specified - Primary Other chronic pain documented in this encounter Insurance Payer Benefit Plan / Subscriber ID Effective Dates Phone Addre ss Type Group MEDICARE MEDICARE PART xxxxxxxxxxx 2011-Valeria [phone] [facility] Medicare A & B t 2 [id number] [place] [id number] documented as of this encounter
--- OUTSIDE RECORDS SUMMARY | 2020-01-25 19:32 | XMS REPORT | Summary of Care ---
:1955 Author Organization [facility] Address [address] [place] [address] Care Team Providers Name Role Phone MD Vikash Primary Care Provider Reason for Visit Reason Comments Assessment Encounter Details Date Type Department Care Team Description 11/05/2019 Telephone [facility] Pediatric and Ray Suh MD Assessment Adult Primary Care- [address] [place] [address] [place] [address] , [address] [place] [address] Allergies Active Allergy Reactions Severity Noted Date Comments Metaxalone Hives, Rash 10/31/2015 Chest pain documented as of this encounter (statuses as of 11/06/2019) Medications Medication Sig Dispensed Refills Start Date End Date Status NOVOLOG U-100 INSULIN USE IN INSULIN 90 mL 3 09/17/2018 Active ASPART 100 unit/mL PUMP solution LOVASTATIN 20 mg tablet TAKE 1 TABLET 90 tablet 1 09/17/2018 Active BY MOUTH EVERYDAY AT BEDTIME Nebulizer Accessories Use as directed 1 Kit [...] 03/01/2019 Active tabletIndications: BY MOUTH EVERY Environmental allergies DAY tadalafil (CIALIS) 20 Take 1 tablet 8 tablet 5 03/21/2019 Active mg tabletIndications: by mouth as Erectile dysfunction, needed for unspecified erectile Erectile dysfunction type dysfunction. Diclofenac Sodium Apply 2mg-4mg 100 g 1 05/20/2019 Active (VOLTAREN) 1 % to affected gelIndications: Right area 4 times knee pain, unspecified daily chronicity albuterol 90 Inhale 2 Puffs 8.5 g 11 06/20/2019 A ctive mcg/actuation every 6 (six) inhalerIndications: hours as needed Upper respiratory tract for Wheezing or infection, unspecified Shortness of type, Dyspnea on Breath. exertion mlmpfg-iwfiuaew-klsqdel Take 1 capsule 270 capsule 2 9 Active (CREON) 12,000-38,000 by mouth 3 -60,000 unit (three) times capsuleIndications: daily with Other chronic pain meals. CYCLOBENZAPRINE 10 mg TAKE 1 TABLET 90 tablet 1 08/01/2019 Active tabletIndications: BY MOUTH THREE Chronic back pain, TIMES A DAY unspecified back NEEDED FOR location, unspecified MUSCLE SPASMS back pain laterality gabapentin 400 mg TAKE 1 CAPSULE 270 capsule 1 08/09/2019 Active capsule BY MOUTH THREE TIMES A DAY CLONAZEPAM 1 mg TAKE 1 TABLET 180 tablet 0 08/26/2019 Active tabletIndications: BY MOUTH TWICE Anxiety A DAY LOVASTATIN 20 mg tablet TAKE 1 TABLET 90 tablet 0 09/12/2019 Active BY MOUTH EVERYDAY AT BEDTIME LOSARTAN 100 mg tablet TAKE 1 TABLET 90 tablet 0 09/16/2019 Active BY MOUTH EVERY DAY doxycycline hyclate 100 Take 1 tablet 20 tablet 0 09/23/2019 Active mg tabletIndications: by mouth 2 Folliculitis (two) times daily. fluticasone propionate Use 2 Sprays in 16 g 11 10/11/2019 Active 50 mcg/actuation nasal each nostril sprayIndications: Cough daily. HYDROcodone-acetaminoph Take 1 tablet 120 tablet 0 11/04/2019 Active en 7.5-325 mg per by mouth every tabletIndications: 6 (six) hours Other chronic pain as needed for Pain. pantoprazole 40 mg EC Take 1 tablet 90 tablet 2 11/04/2019 Active tabletIndications: by mouth daily. Gastroesophageal reflux disease, esophagitis presence not specified documented as of this encounter (statuses as of 11/06/2019) Active Problems Problem Noted Date Anxiety 08/21/2018 Other chronic pain 03/23/2018 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 Abdominal pain 08/23/2016 Liver abscess 07/31/2016 Paraesophageal fluid collection 11/06/2015 Hyponatremia 11/02/2015 Hyperlipidemia 11/02/2015 Essential hypertension 11/02/2015 Normocytic anemia 11/02/2015 Thrombocytosis 11/02/2015 Pneumobilia 11/01/2015 Biliary tract cancer 11/01/2015 documented as of this encounter (statuses as of 11/06/2019) Resolved Problems Problem Noted Date Resolved Date Type 2 diabetes mellitus with hyperglycemia 11/02/2015 08/28/2016 documented as of this encounter (statuses as of 11/06/2019) Immunizations Name Administration Dates Next Due Influenza [...] Telemedicine Visit Family Medicine Geoffrey Suh MD [address] [place] [phone] 12/20/2019 Office Visit Pulmonary Disease Guerita Lawler DO [facility] [place] [phone] 02/04/2020 Office Visit Endocrinology Diabetes & Duc Lea MD Metabolism [facility] [place] [address] [phone] Health Maintenance Due Date Last Done Comments [...] MEDICARE PART xxxxxxxxxxx 2011-Valeria [phone] P[facility] Medicare A & B t 2 [id number] SKYLAR LACEY [id number] documented as of this encounter
--- OUTSIDE RECORDS SUMMARY | 2020-01-25 19:32 | XMS REPORT | Summary of Care ---
:1955 Author Organization [facility] Address [address] [place] [address] Care Team Providers Name Role Phone MD Vikash Primary Care Provider Reason for Visit Reason Comments Assessment Encounter Details Date Type Department Care Team Description 11/11/2019 Telephone [facility] Pediatric and Ray Shu MD Assessment Adult Primary Care- [address] [place] [address] [place] [address] , [phone] [address] [place] [address] Allergies Active Allergy Reactions Severity Noted Date Comments Metaxalone Hives, Rash 10/31/2015 Chest pain documented as of this encounter (statuses as of 11/12/2019) Medications Medication Sig Dispensed Refills Start Date [...] Shortness of type, Dyspnea on Breath. 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 Abdominal pain 08/23/2016 Liver abscess 07/31/2016 Paraesophageal fluid collection 11/06/2015 Hyponatremia 11/02/2015 Hyperlipidemia 11/02/2015 Essential hypertension 11/02/2015 Normocytic anemia 11/02/2015 Thrombocytosis 11/02/2015 Pneumobilia 11/01/2015 Biliary tract cancer 11/01/2015 documented as of this encounter (statuses as of 11/12/2019) Resolved Problems Problem Noted Date Resolved Date Type 2 diabetes mellitus with hyperglycemia 11/02/2015 08/28/2016 documented as of this encounter (statuses as of 11/12/2019) Immunizations Name Administration Dates Next Due Influenza [...] Telemedicine Visit Family Medicine Geoffrey Suh MD [address] [place] [phone] 12/20/2019 Telemedicine Visit Pulmonary Disease Xiang Lawler DO [facility] [place] [phone] 02/04/2020 Office Visit Endocrinology Diabetes & Duc Lea MD Metabolism [facility] [place] [address] [phone] Health Maintenance Due Date Last Done Comments [...] MEDICARE PART xxxxxxxxxxx 2011-Valeria [phone] P[facility] O[facility] Medicare A & B t 2 [id number] SKYLAR LACEY [id number] documented as of this encounter
--- OUTSIDE RECORDS SUMMARY | 2020-01-25 19:32 | XMS REPORT | Summary of Care ---
:1955 Author Organization [facility] Address [address] [place] [address] Care Team Providers Name Role Phone MD Vikash Primary Care Provider Encounter Details Date Type Department Care Team Description 11/11/2019 Orders Only [facility] Doctor Unassigned, No [address] [facility] [place] [address] [address] [place] [address] Allergies Active Allergy Reactions Severity Noted Date Comments Metaxalone Hives, Rash 10/31/2015 Chest pain documented as of this encounter (statuses as of 11/15/2019) Medications Medication Sig Dispensed Refills Start Date End Date Status NOVOLOG U-100 INSULIN USE IN INSULIN 90 mL 3 09/17/2018 Active ASPART 100 unit/mL PUMP solution LOVASTATIN 20 mg tablet TAKE 1 TABLET 90 tablet 1 09/17/2018 Active BY MOUTH EVERYDAY AT BEDTIME Nebulizer Accessories Use as directed 1 Kit 0 02/06/2019 Active KitIndications: Cough, SOB (shortness of breath) Nebulizers ([employer] Dispense the 1 Each 0 02/08/2019 Active [...] Shortness of type, Dyspnea on Breath. 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 Abdominal pain 08/23/2016 Liver abscess 07/31/2016 Paraesophageal fluid collection 11/06/2015 Hyponatremia 11/02/2015 Hyperlipidemia 11/02/2015 Essential hypertension 11/02/2015 Normocytic anemia 11/02/2015 Thrombocytosis 11/02/2015 Pneumobilia 11/01/2015 Biliary tract cancer 11/01/2015 documented as of this encounter (statuses as of 11/15/2019) Resolved Problems Problem Noted Date Resolved Date Type 2 diabetes mellitus with hyperglycemia 11/02/2015 08/28/2016 documented as of this encounter (statuses as of 11/15/2019) Immunizations Name Administration Dates Next Due Influenza [...] Telemedicine Visit Family Medicine Geoffrey Suh MD [address] [place] [phone] 12/20/2019 Telemedicine Visit Pulmonary Disease Xiang Lawler DO [facility] [place] [phone] 02/04/2020 Office Visit Endocrinology Diabetes & Duc Lea MD [facility] [address] [place], [place] [phone] Health Maintenance Due Date Last Done Comments [...] 03/31/2019, 04/07/2017 documented as of this encounter Procedures Procedure Name Priority Date/Time Associated Diagnosis Comme nts DME/SUPPLY JUSTIFICATION Routine 11/11/2019 12:01 AM CDT documented in this encounter Results Not on filedocumented in this encounter Insurance Payer Benefit Plan / Subscriber ID Effective Dates Phone Addre ss Type Group MEDICARE MEDICARE PART xxxxxxxxxxx 2011-Valeria [phone] [address] Medicare A & B t 2 [id number] SKYLAR LACEY [id number] documented as of this encounter
--- OUTSIDE RECORDS SUMMARY | 2020-01-25 19:33 | XMS REPORT | Summary of Care ---
:1955 Author Organization [facility] Address [address] [place] [address] Care Team Providers Name Role Phone MD Vikash Primary Care Provider Reason for Visit Reason Comments Refill Request Encounter Details Date Type Department Care Team Description 11/21/2019 Refill [facility] Family Medicine Ray Chao MD Refill Request - [address] [address] [place] [address] [phone] Allergies Active Allergy Reactions Severity Noted Date Comments Metaxalone Hives, Rash 10/31/2015 Chest pain documented as of this encounter (statuses as of 11/21/2019) Medications Medication Sig Dispensed Refills Start End Date Status Date LOVASTATIN 20 mg TAKE 1 TABLET 90 tablet 1 Active tablet BY MOUTH 9 EVERYDAY AT BEDTIME Nebulizer Accessories Use as 1 Kit 0 Active KitIndications: directed 9 Cough, SOB (shortness of breath) Nebulizers (VIXONE Dispense the 1 Each 0 Active NEBULIZER-ADULT MASK) Nebulizer Mask 9 Misc covered by Ins. He will pay out of pocket if mask not approved by Insurance. He does not need the machine. MONTELUKAST 10 mg TAKE 1 TABLET 30 tablet 0 Active tabletIndications: BY MOUTH EVERY 9 Environmental DAY allergies tadalafil (CIALIS) 20 Take 1 tablet 8 tablet 5 Active mg tabletIndications: by mouth as 9 Erectile dysfunction, needed for unspecified erectile Erectile dysfunction type dysfunction. Diclofenac Sodium Apply 2mg-4mg 100 g 1 Active (VOLTAREN) 1 % to affected 9 gelIndications: Right area 4 times knee pain, daily unspecified chronicity albuterol 90 Inhale 2 Puffs 8.5 g 11 Ac tive mcg/actuation every 6 (six) 9 inhalerIndications: hours as Upper respiratory needed for tract infection, Wheezing or unspecified type, Shortness of Dyspnea on exertion Breath. wajgns-hdfsighq-itxrs Take 1 capsule 270 capsule 2 Active se (CREON) by mouth 3 9 12,000-38,000 -60,000 (three) times unit daily with capsuleIndications: meals. Other chronic pain CYCLOBENZAPRINE 10 mg TAKE 1 TABLET 90 tablet 1 Active tabletIndications: BY MOUTH THREE 0 Chronic back pain, TIMES A DAY unspecified back NEEDED FOR location, unspecified MUSCLE SPASMS back pain laterality gabapentin 400 mg TAKE 1 CAPSULE 270 capsule 1 Active capsule BY MOUTH THREE 0 TIMES A DAY CLONAZEPAM 1 mg TAKE 1 TABLET 180 tablet 0 Active tabletIndications: BY MOUTH TWICE 0 Anxiety A DAY LOVASTATIN 20 mg TAKE 1 TABLET 90 tablet 0 Active tablet BY MOUTH 0 EVERYDAY AT BEDTIME LOSARTAN 100 mg TAKE 1 TABLET 90 tablet 0 Active tablet BY MOUTH EVERY 0 DAY doxycycline hyclate Take 1 tablet 20 tablet 0 Active 100 mg by mouth 2 0 tabletIndications: (two) times Folliculitis daily. fluticasone Use 2 Sprays 16 g 11 Activ e propionate 50 in each 0 mcg/actuation nasal nostril daily. sprayIndications: Cough HYDROcodone-acetamino Take 1 tablet 120 tablet 0 Active phen 7.5-325 mg per by mouth every 0 tabletIndications: 6 (six) hours Other chronic pain as needed for Pain. pantoprazole 40 mg EC Take 1 tablet 90 tablet 2 Active tabletIndications: by mouth 0 Gastroesophageal daily. 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 Abdominal pain 08/23/2016 Liver abscess 07/31/2016 Paraesophageal fluid collection 11/06/2015 Hyponatremia 11/02/2015 Hyperlipidemia 11/02/2015 Essential hypertension 11/02/2015 Normocytic anemia 11/02/2015 Thrombocytosis 11/02/2015 Pneumobilia 11/01/2015 Biliary tract cancer 11/01/2015 documented as of this encounter (statuses as of 11/21/2019) Resolved Problems Problem Noted Date Resolved Date Type 2 diabetes mellitus with hyperglycemia 11/02/2015 08/28/2016 documented as of this encounter (statuses as of 11/21/2019) Immunizations Name Administration Dates Next Due Influenza [...] Telemedicine Visit Family Medicine Geoffrey Suh MD [address] [place] [phone] 12/20/2019 Telemedicine Visit Pulmonary Disease Xiang Lawler, [address] [place] [address] 02/04/2020 Office Visit Endocrinology Diabetes & Duc Lea MD Metabolism [address] [place] [address] [phone] Health Maintenance Due Date Last Done Comments [...] BOX Medicare A & B t 2 [id number] SKYLAR LACEY [phone] documented as of this encounter
--- OUTSIDE RECORDS SUMMARY | 2020-01-25 19:33 | XMS REPORT | Summary of Care ---
:1955 Author Organization [facility] Address [address] [place] [address] Care Team Providers Name Role Phone MD Vikash Primary Care Provider Reason for Visit Reason Comments Assessment Encounter Details Date Type Department Care Team Description 11/18/2019 Telephone [facility] Pediatric and Ray Suh MD Assessment Adult Primary Care- [address] [place] [address] [place] [address] , [address] [place] [address] Allergies Active Allergy Reactions Severity Noted Date Comments Metaxalone Hives, Rash 10/31/2015 Chest pain documented as of this encounter (statuses as of 11/18/2019) Medications Medication Sig Dispensed Refills Start Date [...] Shortness of type, Dyspnea on Breath. 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 Abdominal pain 08/23/2016 Liver abscess 07/31/2016 Paraesophageal fluid collection 11/06/2015 Hyponatremia 11/02/2015 Hyperlipidemia 11/02/2015 Essential hypertension 11/02/2015 Normocytic anemia 11/02/2015 Thrombocytosis 11/02/2015 Pneumobilia 11/01/2015 Biliary tract cancer 11/01/2015 documented as of this encounter (statuses as of 11/18/2019) Resolved Problems Problem Noted Date Resolved Date Type 2 diabetes mellitus with hyperglycemia 11/02/2015 08/28/2016 documented as of this encounter (statuses as of 11/18/2019) Immunizations Name Administration Dates Next Due Influenza [...] Telemedicine Visit Family Medicine Geoffrey Suh MD [address] [place] [phone] 12/20/2019 Telemedicine Visit Pulmonary Disease Xiang Lawler DO [facility] [place] [phone] 02/04/2020 Office Visit Endocrinology Diabetes & Duc Lea MD Metabolism [facility] [place] [address] [phone] Health Maintenance Due Date Last Done Comments [...] MEDICARE PART xxxxxxxxxxx 2011-Valeria [phone] [facility] Medicare A & B t 2 [id number] SKYLAR LACEY [id number] documented as of this encounter
--- OUTSIDE RECORDS SUMMARY | 2020-01-25 19:33 | XMS REPORT | Summary of Care ---
:1955 Author Organization [facility] Address [address] [place] [address] Care Team Providers Name Role Phone MD Vikash Primary Care Provider Reason for Visit Reason Comments Pain Encounter Details Date Type Department Care Team Description 11/21/2019 Telemedicine Visit [facility] Ray Suh, Other chronic pain (Primary Dx); Pediatric and Adult Anxiety Primary Care- [address] [facility] [address] [place] , [address] [address] [place], [place] [phone] [address] Allergies Active Allergy Reactions Severity Noted Date Comments Metaxalone Hives, Rash 10/31/2015 Chest pain documented as of this encounter (statuses as of 11/21/2019) Medications Medication Sig Dispensed Refills Start Date End Date Status LOVASTATIN 20 mg tablet TAKE 1 TABLET [...] Shortness of type, Dyspnea on Breath. exertion usaymw-rfrbfnws-ruzojmb Take 1 capsule 270 capsule 2 9 [...] Gastroesophageal reflux disease, esophagitis presence not specified NOVOLOG U-100 INSULIN USE IN INSULIN 90 mL 1 11/21/2019 Active ASPART 100 unit/mL PUMP solution documented as of this encounter (statuses [...] Signs Not on filedocumented in this encounter Progress Notes Ray Suh MD - 11/21/2019 8:30 AM CDT TELEHEALTH NOTE Verbal consent obtained from Patient: Rafia Segundo due to the COVID- 19 pandemic for telehealth services provided below. Communication with patient was conducted via Telephone due to patient unable to obtain video call option. Location of Patient: Home Location of Provider: Office Date of Service: 11/21/2019 Chief Complaint: pain HPI: Rafia Segundo Sr. is a 64 year old male with chronic pain Past Medical History: Diagnosis Date Cancer bile duct Chronic pain disorder COPD (chronic obstructive pulmonary disease) Diabetes mellitus HLD (hyperlipidemia) HTN (hypertension) Pancreatitis MEDICATIONS: Current Outpatient Medications Medication Sig Dispense Refill NOVOLOG U-100 INSULIN ASPART 100 unit/mL solution USE IN INSULIN PUMP 90 mL 1 HYDROcodone-acetaminophen 7.5-325 mg per tablet Take 1 tablet by mouth every 6 (six) hours as needed for Pain. 120 tablet 0 pantoprazole 40 mg EC tablet Take 1 tablet by mouth daily. 90 tablet 2 fluticasone propionate 50 mcg/actuation nasal spray Use 2 Sprays in each nostril daily. 16 g 11 doxycycline hyclate 100 mg tablet Take 1 tablet by mouth 2 (two) times daily. 20 tablet 0 LOSARTAN 100 mg tablet TAKE 1 TABLET BY MOUTH EVERY DAY 90 tablet 0 LOVASTATIN 20 mg tablet TAKE 1 TABLET BY MOUTH EVERYDAY AT BEDTIME 90 tablet 0 CLONAZEPAM 1 mg tablet TAKE 1 TABLET BY MOUTH TWICE A DAY 180 tablet 0 gabapentin 400 mg capsule TAKE 1 CAPSULE BY MOUTH THREE TIMES A DAY 270 capsule 1 CYCLOBENZAPRINE 10 mg tablet TAKE 1 TABLET BY MOUTH THREE TIMES A DAY NEEDED FOR MUSCLE SPASMS 90 tablet 1 oylqvq-vxhlmlub-hjufyix (CREON) 12,000-38,000 -60,000 unit capsule Take 1 capsule by mouth 3 (three) times daily with meals. 270 capsule 2 albuterol 90 mcg/actuation inhaler Inhale 2 Puffs every 6 (six) hours as needed for Wheezing or Shortness of Breath. 8.5 g 11 Diclofenac Sodium (VOLTAREN) 1 % gel Apply 2mg-4mg to affected area 4 times daily 100 g 1 tadalafil (CIALIS) 20 mg tablet Take 1 tablet by mouth as needed for Erectile dysfunction. 8 tablet 5 MONTELUKAST 10 mg tablet TAKE 1 TABLET BY MOUTH EVERY DAY 30 tablet 0 Nebulizers (VIXONE NEBULIZER-ADULT MASK) [facility] [place] the Nebulizer Mask covered by Ins. He will pay out of pocket if mask not approved by Insurance. He does not need the machine. 1 Each 0 Nebulizer Accessories Kit Use as directed 1 Kit 0 LOVASTATIN 20 mg tablet TAKE 1 TABLET BY MOUTH EVERYDAY AT BEDTIME 90 tablet 1 No current facility-administered medications for this visit. ROS Chronic pain Negative otherwise TELEHEALTH EXAM Alert, no distress ASSESSMENT/ PLAN Rafia Patrick Sanya Humphrey. is a 64 year old male with PMH as above presenting with: chronic pain, will maintain current meds. After visit summary (AVS ) documentation will be available through [employer] for this encounter. A total of 15 minutes was spent on the Telephone due to patient unable to obtain video call option. Ray Suh MD documented in this encounter Plan of Treatment Date Type Specialty Care Team Description 12/20/2019 Telemedicine Visit Pulmonary Disease Xiang Lawler, [address] [place] [address] 02/04/2020 Office Visit Endocrinology Diabetes & Duc Lea MD Metabolism [address] [place] [address] Health Maintenance Due Date Last [...] Diagnoses Diagnosis Other chronic pain - Primary Anxiety Anxiety state, unspecified documented in this encounter Insurance Payer Benefit Plan / Subscriber ID Effective Dates Phone Addre ss Type Group MEDICARE MEDICARE PART xxxxxxxxxxx 2011-Valeria [phone] [facility] Medicare A & B t 2 [id number] SKYLAR LACEY [phone] ([place]) [place] [address] documented as of this encounter
--- OUTSIDE RECORDS SUMMARY | 2020-01-25 19:34 | XMS REPORT | Summary of Care ---
:1955 Author Organization [facility] Address [address] [place] [address] Care Team Providers Name Role Phone MD Vikash Primary Care Provider Reason for Referral MRI/CAT Scan (Routine) Status Reason Specialty Diagnoses / Referred By Referred To Procedures Contact Contact Closed Diagnostic Diagnoses Cough Cough Guerita Lawler DO Radiology Procedures CT THORAX WO CONTRAST CHG CT SCAN,THORAX,W/O CONTRAST CT THORAX WO CONTRAST [facility] [place] [address] Reason for Visit Reason Comments Follow-up Results PFT Encounter Details Date Type Department Care Team Description 10/11/2019 Office Visit [facility] Guerita Lawler DO Cough (Primary Dx) Pul[facility] [address] [place] [address] , [address] [phone] Allergies Active Allergy Reactions Severity Noted Date Comments Metaxalone Hives, Rash 10/31/2015 Chest pain documented as of this encounter (statuses as of 12/05/2019) Medications Medication Sig Dispensed Refills Start End Date Status Date LOVASTATIN 20 mg TAKE 1 TABLET 90 tablet 1 Active tablet BY MOUTH 9 EVERYDAY AT BEDTIME Nebulizer Use as 1 Kit 0 Active Accessories directed 9 KitIndications: Cough, SOB (shortness of breath) Nebulizers (Cherry Dispense the 1 Each 0 Active NEBULIZER-ADULT Nebulizer 9 MASK) [facility] [place] by Ins. He will pay [...] type, Shortness of Dyspnea on exertion Breath. [id number]-ibqqllrh-vie Take 1 270 capsule 2 Active lase (CREON) capsule by 9 12,000-38,000 mouth 3 [...] 0 mcg/actuation nasal nostril sprayIndications: daily. Cough NOVOLOG U-100 USE IN 90 mL 3 11/21/19 Discon tinued INSULIN ASPART 100 INSULIN PUMP 9 20 unit/mL solution PANTOPRAZOLE 40 mg TAKE 1 TABLET 90 tablet 2 0 Discontinued EC tablet BY MOUTH 0 20 (Reorder) EVERY DAY HYDROcodone-acetami Take 1 tablet 120 tablet 0 11/03 Discontinued nophen 7.5-325 mg by mouth 0 20 (R eorder) per every 6 (six) tabletIndications: hours as Other chronic pain needed for Pain. 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] Sign Reading Time Taken Comments Blood Pressure 131/70 10/11/2019 12:08 PM CDT Pulse 96 10/11/2019 12:03 PM CDT Temperature - - Respiratory Rate 19 10/11/2019 12:03 PM CDT Oxygen Saturation 96% 10/11/2019 12:03 PM CDT Inhaled Oxygen Concentration - - Weight - - Height 175.3 cm (5' 9") 10/11/2019 12:03 PM CDT Body Mass Index - - documented in this encounter Progress Notes Guerita Lawler DO - 10/11/2019 11:00 AM CDT [facility] Chief Complaint: Cough History of Present Illness: Rafia Segundo Sr. is a 64 year old male here for follow up of cough. Had PFT in interval. Cough persists. Shortness of breath at baseline. Past Medical History: has a past medical history of Cancer, Chronic pain disorder, COPD (chronic obstructive pulmonary disease), Diabetes mellitus, HLD (hyperlipidemia), HTN (hypertension), and Pancreatitis. Past Surgical History: has a past surgical history that includes pancreatectomy whipple type procedure. Family History: family history includes Diabetes in his father and mother; Hypertension in his father and mother. Social History: reports that he has been smoking. He has a 45.00 pack-year smoking history. He has never used smokeless tobacco. He reports that he does not drink alcohol or use drugs. Review of Systems: Review of Systems Constitutional: Negative. HENT: Negative. Eyes: Negative. Respiratory: Positive for cough and shortness of breath. Cardiovascular: Negative. Gastrointestinal: Negative. Genitourinary: Negative. Musculoskeletal: Negative. Skin: Negative. Neurological: Negative. Psychiatric/Behavioral: Negative. Endocrine: Endocrine negative Objective: BP 131/70 | Pulse 96 | Resp 19 | Ht 5' 9" (1.753 m) | SpO2 96% | BMI 25.72 kg/m Physical Exam Constitutional: He is oriented to person, place, and time. He appears well- developed and well-nourished. HENT: Head: Normocephalic and atraumatic. Eyes: Conjunctivae and EOM are normal. Neck: Normal range of motion. Neck supple. Cardiovascular: Normal rate and regular rhythm. Pulmonary/Chest: Effort normal and breath sounds normal. Abdominal: Soft. Bowel sounds are normal. Musculoskeletal: Normal range of motion. Neurological: He is alert and oriented to person, place, and time. Skin: Skin is warm and dry. Psychiatric: He has a normal mood and affect. His behavior is normal. Judgment and thought content normal. Labs/Studies: PFT normal Assessment: ICD-10-CM ICD-9-CM 1. Cough R05 786.2 Plan: Will get CT scan to look for potential causes documented in this encounter Plan of Treatment Date Type Specialty Care Team Description 12/20/2019 Telemedicine Visit Pulmonary Disease Xiang Lawler DO [address] [place] [phone] 02/04/2020 Office Visit Endocrinology Diabetes & Lea, Duc rogel MD Metabolism [address] [place] [address] Health Maintenance Due Date Last [...] 04/07/2017 documented as of this encounter Results CT THORAX WO CONTRAST (10/23/2019 12:27 PM CDT) Specimen Narrative Performed At HISTORY: Persistent cough. PACS/VR/DOSE TECHNIQUE: 64-Multidetector noncontrast enhanced CT of the chest is obtained. FINDINGS: Comparison made with 02/06/2019 chest x-ray. No focal lesions detected in the thyroid gland. Trachea and central bronchial airways appear normal. No pneumonia. No pneumothorax or pleural effusion. No pericardial effusion. No enlarged hilar or mediastinal lymph n odes. Obstructive lung disease noted with liam ral subcentimeter to as large as 2.5 cm size peripheral subpleural emphysematous bulla in both upper lungs and one is in the right middle lobe near the hilum. Minimal hazy increased markings are seen in the lingula segment without focal consolidation or nodularity. Note made of atherosclerosis in the aort a and all 3 coronary arteries. Cholecystectomy noted. Pneumobilia is se en which could be due to biliary intervention. T7 vertebral bodies show compression fracture with los s of up to 60-70% of its height in the middle. Minimal fracture in the uppe r plate of T5 and T6 vertebral body noted. Fractures are like ly remote. No aggressive bone lesions are seen. CONCLUSIONS: 1. No acute intrathoracic findings. 2. Selective lung disease with several emphysematous b ullae predominantly in both upper lobes. 3. Triple-vessel coronary atherosclerosi s. 4. Short sliding hiatal hernia. Pneumobi noreen noted which could be postsurgical change. Please correlate wi th history. 5. Incidental note of 4 mm stone in the upper left kidney. No hydronephrosis. Procedure Note [facility], Radiant Results Inft User - 2019 12:40 PM CDT HISTORY: Persistent cough. TECHNIQUE: 64-Multidetector noncontrast enhanced CT of the chest is obtained. FINDINGS: Comparison made with 02/06/2019 chest x-ray. No focal lesions detected in the thyroid gland. Trachea and central bronchial airways appear normal. No pneumonia. No pneumothorax or pleural effusion. No pericardial effusion. No enlarged hilar or mediastinal lymph n odes. Obstructive lung disease noted with liam ral subcentimeter to as large as 2.5 cm size peripheral subpleural emphys ematous bulla in both upper lungs and one is in the right middle lobe near the hilum. Minimal hazy increased markings are seen in the lingula segment without focal consolidation or nodularity. Note made of atherosclerosis in the aort a and all 3 coronary arteries. Cholecystectomy noted. Pneumobilia is se en which could be due to biliary intervention. T7 vertebral bodies show compression fra cture with loss of up to 60-70% of its height in the middle. Minimal fractu re in the upper plate of T5 and T6 vertebral body noted. Fractures are like ly remote. No aggressive bone lesions are seen. CONCLUSIONS: 1. No acute intrathoracic findings. 2. Selective lung disease with several e mphysematous bullae predominantly in both upper lobes. 3. Triple-vessel coronary atherosclerosi s. 4. Short sliding hiatal hernia. Pneumobi noreen noted which could be postsurgical change. Please correlate wi th history. 5. Incidental note of 4 mm stone in the upper left kidney. No hydronephrosis. Performing Organization Address City/State/Zipcode Phone Number PACS/VR/DOSE documented in this encounter Visit Diagnoses Diagnosis Cough - Primary documented in this encounter Insurance Payer Benefit Plan / Subscriber ID Effective Dates Phone Addre ss Type Group MEDICARE MEDICARE PART xxxxxxxxxxx 2011-Valeria [phone] Medicare A & B t 2 [id number] [place] [phone] documented as of this encounter
--- OUTSIDE RECORDS SUMMARY | 2020-01-25 19:34 | XMS REPORT | Summary of Care ---
:1955 Author Organization [facility] Address [address] [place] [address] Care Team Providers Name Role Phone MD Vikash Primary Care Provider Reason for Referral MRI/CAT Scan (Routine) Status Reason Specialty Diagnoses / Referred By Referred To Procedures Contact Contact Closed Diagnostic Diagnoses Cough Cough Guerita Lawler DO Radiology Procedures CT THORAX WO CONTRAST CHG CT SCAN,THORAX,W/O CONTRAST CT THORAX WO CONTRAST [facility] [place] [address] Reason for Visit Reason Comments Follow-up Results PFT Encounter Details Date Type Department Care Team Description 10/11/2019 Office Visit [facility] Guerita Lawler DO Cough (Primary Dx) Pulmonary Clinic [address] [place] [address] , [address] [phone] Allergies Active Allergy Reactions Severity [...] KitIndications: Cough, SOB (shortness of breath) Nebulizers (Hitsbook Dispense the 1 Each 0 Active NEBULIZER-ADULT Nebulizer 9 MASK) [facility] [place] Mask covered by Ins. He will pay [...] type, Shortness of Dyspnea on exertion Breath. lqrnes-fjtaendk-yis Take 1 270 capsule 2 Active lase [...] Lawler DO - 10/11/2019 11:00 AM CDT [facility] Chief Complaint: Cough History [...] Visit Pulmonary Disease Xiang Lawler DO [address] [place] [phone] 02/04/2020 Office Visit Endocrinology Diabetes & Lea, Duc rogel MD Metabolism [address] [place] [address] Health Maintenance Due Date Last [...] BOX Medicare A & B t 2 [id number] [place] [phone] documented as of this encounter
--- OUTSIDE RECORDS SUMMARY | 2020-01-25 19:35 | XMS REPORT | Summary of Care ---
:1955 Author Organization [facility] Address [address] [place] [address] Care Team Providers Name Role Phone MD Vikash Primary Care Provider Reason for Visit Reason Comments Refill Request Encounter Details Date Type Department Care Team Description 12/06/2019 Refill [facility] Family Medicine Ray Chao MD Refill Request - [address] [address] [place] [address] [phone] Allergies Active Allergy Reactions Severity Noted Date Comments Metaxalone Hives, Rash 10/31/2015 Chest pain documented as of this encounter (statuses as of 12/09/2019) Medications Medication Sig Dispensed Refills Start End [...] type, Shortness of Dyspnea on exertion Breath. [id number]-xbldnomx-yjzk Take 1 270 capsule 2 Active ase [...] 0 mcg/actuation nasal nostril sprayIndications: daily. Cough pantoprazole 40 mg Take 1 tablet 90 tablet 2 Active EC by mouth 0 tabletIndications: daily. Gastroesophageal reflux disease, esophagitis presence not specified NOVOLOG U-100 USE IN 90 mL 1 Active INSULIN ASPART 100 INSULIN PUMP 0 unit/mL solution HYDROcodone-acetamin Take 1 tablet 120 tablet 0 Active ophen 7.5-325 mg per by mouth 0 tabletIndications: every 6 (six) Other chronic pain hours as needed for Pain. HYDROcodone-acetamin Take 1 tablet 120 tablet 0 11/28 Discontinued ophen 7.5-325 mg per by mouth 0 20 (Reorder) tabletIndications: every 6 (six) Other chronic pain hours as needed for Pain. documented as of this encounter (statuses as of 12/09/2019) Active Problems Problem Noted Date Anxiety 08/21/2018 Other chronic pain 03/23/2018 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 Abdominal pain 08/23/2016 Liver abscess 07/31/2016 Paraesophageal fluid collection 11/06/2015 Hyponatremia 11/02/2015 Hyperlipidemia 11/02/2015 Essential hypertension 11/02/2015 Normocytic anemia 11/02/2015 Thrombocytosis 11/02/2015 Pneumobilia 11/01/2015 Biliary tract cancer 11/01/2015 documented as of this encounter (statuses as of 12/09/2019) Resolved Problems Problem Noted Date Resolved Date Type 2 diabetes mellitus with hyperglycemia 11/02/2015 08/28/2016 documented as of this encounter (statuses as of 12/09/2019) Immunizations Name Administration Dates Next Due Influenza [...] Telemedicine Visit Pulmonary Disease Xiang Lawler DO [address] [place] [phone] 02/04/2020 Office Visit Endocrinology Diabetes & Duc Lea MD Metabolism [address] [place] [address] [phone] Health Maintenance Due Date Last Done Comments [...] BOX Medicare A & B t 2 [id number] [place] [phone] documented as of this encounter
--- OUTSIDE RECORDS SUMMARY | 2020-01-25 19:36 | XMS REPORT | Summary of Care ---
:1955 Author Organization [facility] Address [address] [place] [address] Care Team Providers Name Role Phone MD Vikash Primary Care Provider Reason for Visit Reason Comments Refill Request Encounter Details Date Type Department Care Team Description 12/09/2019 Refill [facility] Family Medicine Ray Chao MD Refill Request - [address] [address] [place] [address] [phone] Allergies Active Allergy Reactions Severity Noted Date Comments Metaxalone Hives, Rash 10/31/2015 Chest pain documented as of this encounter (statuses as of 12/09/2019) Medications Medication Sig Dispensed Refills Start End Date Status Date Nebulizer Use as 1 Kit 0 Active [...] type, Shortness of Dyspnea on exertion Breath. mfccqn-vkvwoeto-lujy Take 1 270 capsule 2 Active ase [...] BY MOUTH 0 Anxiety TWICE A DAY doxycycline hyclate Take 1 tablet 20 [...] chronic pain hours as needed for Pain. LOSARTAN 100 mg TAKE 1 TABLET 90 tablet 0 Active tablet BY MOUTH 0 EVERY DAY LOVASTATIN 20 mg TAKE 1 TABLET 90 tablet 0 05/11/202 Active tablet BY MOUTH 0 EVERYDAY AT BEDTIME LOVASTATIN 20 mg TAKE 1 TABLET 90 tablet 1 12/09/19 Discontinued tablet BY MOUTH 9 20 (Duplicate ) EVERYDAY AT BEDTIME LOVASTATIN 20 mg TAKE 1 TABLET 90 tablet 0 12/09/19 Discontinued tablet BY MOUTH 0 20 EVERYDAY AT BEDTIME LOSARTAN 100 mg TAKE 1 TABLET 90 tablet 0 12/09/19 Discontinued tablet BY MOUTH 0 20 EVERY DAY documented as of this encounter (statuses as [...] Visit Pulmonary Disease Xiang Lawler DO [address] [place] [address] 02/04/2020 Office Visit Endocrinology Diabetes & Duc Lea MD Metabolism [address] [place] [address] [phone] Health Maintenance Due Date Last Done Comments [...] BOX Medicare A & B t 2 [id number] [place] [address] documented as of this encounter
--- OUTSIDE RECORDS SUMMARY | 2020-01-25 19:36 | XMS REPORT | Summary of Care ---
:1955 Author Organization [facility] Address [address] [place] [address] Care Team Providers Name Role Phone MD Vikash Primary Care Provider Reason for Visit Reason Comments Rx Concern/Question Encounter Details Date Type Department Care Team Description 12/12/2019 Telephone [facility] Family Geoffrey Suh MD Rx Concern/Question Medicine - [address] [address] [phone] Allergies Active Allergy Reactions Severity Noted Date Comments Metaxalone Hives, Rash 10/31/2015 Chest pain documented as of this encounter (statuses as of 12/12/2019) Medications Medication Sig Dispensed Refills Start Date End Date Status Nebulizer Accessories Use as directed 1 Kit [...] Shortness of type, Dyspnea on Breath. exertion rihpsk-peoicnkr-qavvtdf Take 1 capsule 270 capsule 2 9 [...] tabletIndications: BY MOUTH TWICE Anxiety A DAY doxycycline hyclate 100 Take 1 tablet 20 tablet 0 09/23/2019 Active mg tabletIndications: by mouth 2 Folliculitis (two) times daily. fluticasone propionate Use 2 Sprays in 16 g 11 10/11/2019 Active 50 mcg/actuation nasal each nostril sprayIndications: Cough daily. pantoprazole 40 mg EC Take 1 tablet 90 tablet 2 11/04/2019 Active tabletIndications: by mouth daily. Gastroesophageal reflux disease, esophagitis presence not specified NOVOLOG U-100 INSULIN USE IN INSULIN 90 mL 1 11/21/2019 Active ASPART 100 unit/mL PUMP solution HYDROcodone-acetaminoph Take 1 tablet 120 tablet 0 12/09/2019 Active en 7.5-325 mg per by mouth every tabletIndications: 6 (six) hours Other chronic pain as needed for Pain. 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] 12/20/2019 Telemedicine Visit Pulmonary Disease Xiang Lawler, [address] [place] [address] 02/04/2020 Office Visit Endocrinology Diabetes & Duc Lea MD Metabolism [address] [place] [address] Health Maintenance Due Date Last [...] BOX Medicare A & B t 2 [id number] [place] [address] documented as of this encounter
--- OUTSIDE RECORDS SUMMARY | 2020-01-25 19:37 | XMS REPORT | Summary of Care ---
:[address] [facility] Address [address] [place] [address] Care Team Providers Name Role Phone MD Vikash Primary Care Provider Reason for Visit Reason Comments Refill Request Encounter Details Date Type Department Care Team Description 01/08/[address] [facility] Family Medicine Ray Chao MD Refill Request - [address] [place] [address] [place] [address] [phone] Allergies Active Allergy Reactions Severity Noted Date Comments Metaxalone Hives, Rash 10/31/2015 Chest pain documented as of this encounter (statuses as of 01/08/2020) Medications Medication Sig Dispensed Refills Start End [...] type, Shortness of Dyspnea on exertion Breath. wtvtfz-obxolynr-krrj Take 1 270 capsule 2 Active ase [...] BY 0 MOUTH THREE TIMES A DAY doxycycline hyclate Take 1 tablet [...] ASPART 100 INSULIN PUMP 0 unit/mL solution LOSARTAN 100 mg TAKE 1 TABLET 90 tablet 0 Active tablet BY MOUTH 0 EVERY DAY LOVASTATIN 20 mg TAKE 1 TABLET 90 tablet 0 Active tablet BY MOUTH 0 EVERYDAY AT BEDTIME CLONAZEPAM 1 mg TAKE 1 TABLET 180 tablet 0 Active tabletIndications: BY MOUTH 0 Anxiety TWICE A DAY HYDROcodone-acetamin Take 1 tablet 120 tablet 0 Active ophen 7.5-325 mg per by mouth 0 tabletIndications: every 6 (six) Other chronic pain hours as needed for Pain. HYDROcodone-acetamin Take 1 tablet 120 tablet 0 12/29 0/ Discontinued ophen 7.5-325 mg per by mouth 0 20 (Reorder) tabletIndications: every 6 (six) Other chronic pain hours as needed for Pain. 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] Treatment Date Type Specialty Care Team Description 02/04/2020 Office Visit Endocrinology Diabetes & Duc Lea MD Metabolism [address] [place] [address] Health Maintenance Due Date Last [...] 06/04/2019, 04/20/2017, 11/02/2015 URINE MICROALBUMIN 06/04/2020 06/04/2019 Depression Screening 10/10/2020 10/11/2019 LUNG CANCER SCREEN: 10/22/2020 10/23/2019 Recommended for [...] BOX Medicare A & B t 2 [id number] [place] [phone] documented as of this encounter
--- OUTSIDE RECORDS SUMMARY | 2020-01-25 19:37 | XMS REPORT | Summary of Care ---
:1955 Author Organization [facility] Address [address] [place] [address] Care Team Providers Name Role Phone MD Vikash Primary Care Provider Reason for Visit Reason Comments Assessment Encounter Details Date Type Department Care Team Description 01/14/2020 Telephone [facility] Pediatric and Ray Suh MD Assessment Adult Primary Care- [address] [place] [address] [place] [address], [address] [place] [address] Allergies Active Allergy Reactions Severity Noted Date Comments Metaxalone Hives, Rash 10/31/2015 Chest pain documented as of this encounter (statuses as of 01/14/2020) Medications Medication Sig Dispensed Refills Start Date [...] Shortness of type, Dyspnea on Breath. exertion hhnhbn-keoyyjga-mqecoxw Take 1 capsule 270 capsule 2 9 [...] capsule BY MOUTH THREE TIMES A DAY doxycycline hyclate 100 Take 1 [...] 11/21/2019 Active ASPART 100 unit/mL PUMP solution LOSARTAN 100 mg tablet TAKE 1 TABLET 90 tablet 0 12/09/2019 Active BY MOUTH EVERY DAY LOVASTATIN 20 mg tablet TAKE 1 TABLET 90 tablet 0 12/09/2019 Active BY MOUTH EVERYDAY AT BEDTIME CLONAZEPAM 1 mg TAKE 1 TABLET 180 tablet 0 12/30/2019 Active tabletIndications: BY MOUTH TWICE Anxiety A DAY HYDROcodone-acetaminoph Take 1 tablet 120 tablet 0 01/08/2020 Active en 7.5-325 mg per by mouth every tabletIndications: 6 (six) hours Other chronic pain as needed for Pain. documented as of this encounter (statuses as of 01/14/2020) Active Problems Problem Noted Date Anxiety 08/21/2018 Other chronic pain 03/23/2018 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 Abdominal pain 08/23/2016 Liver abscess 07/31/2016 Paraesophageal fluid collection 11/06/2015 Hyponatremia 11/02/2015 Hyperlipidemia 11/02/2015 Essential hypertension 11/02/2015 Normocytic anemia 11/02/2015 Thrombocytosis 11/02/2015 Pneumobilia 11/01/2015 Biliary tract cancer 11/01/2015 documented as of this encounter (statuses as of 01/14/2020) Resolved Problems Problem Noted Date Resolved Date Type 2 diabetes mellitus with hyperglycemia 11/02/2015 08/28/2016 documented as of this encounter (statuses as of 01/14/2020) Immunizations Name Administration Dates Next Due Influenza [...] Diabetes & Duc Lea MD Metabolism [address] [place], [place] [phone] Health Maintenance Due Date Last Done Comments [...] BOX Medicare A & B t 2 [id number] [place] [phone] documented as of this encounter
--- OUTSIDE RECORDS SUMMARY | 2020-01-25 19:37 | XMS REPORT | Summary of Care ---
:1955 Author Organization [facility] Address [address] [place] [id number] Care Team Providers Name Role Phone MD Vikash Primary Care Provider Reason for Visit Reason Comments Cough Encounter Details Date Type Department Care Team Description 12/20/2019 Telemedicine Visit [facility] Guerita Lawler DO Chronic cough Pulmonary [facility] [address] [place] [address] (Primary Dx) [address] [place] [address] , [address] [address] [phone] Allergies Active Allergy Reactions Severity Noted Date Comments Metaxalone Hives, Rash 10/31/2015 Chest pain documented as of this encounter (statuses as of 12/20/2019) Medications Medication Sig Dispensed Refills Start Date [...] Shortness of type, Dyspnea on Breath. 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 Abdominal pain 08/23/2016 Liver abscess 07/31/2016 Paraesophageal fluid collection 11/06/2015 Hyponatremia 11/02/2015 Hyperlipidemia 11/02/2015 Essential hypertension 11/02/2015 Normocytic anemia 11/02/2015 Thrombocytosis 11/02/2015 Pneumobilia 11/01/2015 Biliary tract cancer 11/01/2015 documented as of this encounter (statuses as of 12/20/2019) Resolved Problems Problem Noted Date Resolved Date Type 2 diabetes mellitus with hyperglycemia 11/02/2015 08/28/2016 documented as of this encounter (statuses as of 12/20/2019) Immunizations Name Administration Dates Next Due Influenza [...] on filedocumented in this encounter Progress Notes Guerita Lawler DO - 12/20/2019 1:00 PM CDT [facility] Interventional Pulmonology Telemedicine Note Verbal consent obtained from Patient: Rafia Segundo for telehealth services provided below. Communication with patient was conducted via Telephone due to patient unable to obtain video call option. Location of Patient: Home Location of Provider: Clinic Date of Service: 12/20/2019 Chief Complaint: Cough History of Present Illness: Rafia Segundo is a 64 year old male here for follow up of cough. Cough is present day and night. Does have cough when he lays down and goes to bed. Not productive Does wake up from sleep. No runny nose. No nasal congestion. No post nasal drip. Does not have any heartburn or indigestion. Patient did not have any improvement with Nasonex. Past Medical History: has a past medical [...] HENT: Negative. Eyes: Negative. Respiratory: Positive for cough. Cardiovascular: Negative. Gastrointestinal: Negative. Genitourinary: Negative. Musculoskeletal: Negative. Skin: Negative. Neurological: Negative. Psychiatric/Behavioral: Negative. Endocrine: Endocrine negative Physical Examination: A limited physical exam was able to be performed due to the telephone encounter Physical Exam Constitutional: He is oriented to person, place, and time. No distress. Pulmonary/Chest: Effort normal. No respiratory distress. Neurological: He is alert and oriented to person, place, and time. Psychiatric: Mood, memory, affect and judgment normal. Laboratory/Studies: PFT - normal CT thorax - emphysematous bullae upper lobe, short sliding hiatal hernia Assessment & Plan Rafia Segunod Sr. is a 64 year old male with ICD-10-CM ICD-9-CM 1. Chronic cough R05 786.2 Likely reflux related in setting of nocturnal cough, sliding hiatal hernia Recommendations: Continue with pantoprazole Elevate head of the bed Quit smoking May need bronchoscopy if cough does not improve F/u 6 months A total of 15 minutes was spent on the Telephone due to patient unable to obtain video call option with the patient. After visit summary (AVS) documentation will be available through [employer] for this encounter. documented in this encounter Plan of Treatment Date Type Specialty Care Team Description 02/04/2020 Office Visit Endocrinology Diabetes & Duc Lea MD Metabolism [facility] [place] [address] [phone] Health Maintenance Due Date Last Done Comments [...] in this encounter Visit Diagnoses Diagnosis Chronic cough - Primary Cough documented in this encounter Insurance Payer Benefit Plan / Subscriber ID Effective Dates Phone Addre ss Type Group MEDICARE MEDICARE PART xxxxxxxxxxx 2011-Valeria [phone] [address] [facility] Medicare A & B t 2 [id number] [place] [phone] ([place]) [place] [address] documented as of this encounter
--- OUTSIDE RECORDS SUMMARY | 2020-01-25 19:38 | XMS REPORT | Summary of Care ---
:1955 Author Organization [facility] Address [address] [place] [id number] Care Team Providers Name Role Phone MD Vikash Primary Care Provider Reason for Visit Reason Comments Forms [facility] Encounter Details Date Type Department Care Team Description 01/21/2020 Telephone [facility] Endocrinology- Constantine Lea MD Forms ([facility]) [place] [address] [address] [place] [address] [phone] Allergies Active Allergy Reactions Severity Noted Date Comments Metaxalone Hives, Rash 10/31/2015 Chest pain documented as of this encounter (statuses as of 01/21/2020) Medications Medication Sig Dispensed Refills Start Date [...] Shortness of type, Dyspnea on Breath. 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 Abdominal pain 08/23/2016 Liver abscess 07/31/2016 Paraesophageal fluid collection 11/06/2015 Hyponatremia 11/02/2015 Hyperlipidemia 11/02/2015 Essential hypertension 11/02/2015 Normocytic anemia 11/02/2015 Thrombocytosis 11/02/2015 Pneumobilia 11/01/2015 Biliary tract cancer 11/01/2015 documented as of this encounter (statuses as of 01/21/2020) Resolved Problems Problem Noted Date Resolved Date Type 2 diabetes mellitus with hyperglycemia 11/02/2015 08/28/2016 documented as of this encounter (statuses as of 01/21/2020) Immunizations Name Administration Dates Next Due Influenza Virus Vaccine 04/07/2017 Influenza Virus Vaccine Quad .5 mL IM 6+ MO 03/31/2019 TDAP 02/23/2018 documented as of this encounter Social [...] Diabetes & Duc Lea MD Metabolism [address] [place] [address] [phone] Health Maintenance Due Date Last Done Comments HEPATITIS C (HCV) SCREEN 1955 PNEUMOCOCCAL 0-64 YEARS COMBINED 1962 SERIES (1 of 3 - PCV13) EYE EXAM 1966 Zoster Recombinant Vaccine 2006 (SHINGRIX) (1 of 2) HgA1C 04/03/2020 10/02/2019, 06/04/2019, 03/20/2019, Additional history exists CREATININE (SERUM) 06/04/2020 06/04/2019, 06/13/2017, 05/08/2017, Additional history exists FOOT EXAM 06/04/2020 06/04/2019, 06/04/2019, 06/01/2018, Additional history exists LDL-C 06/04/2020 06/04/2019, 04/20/2017, 11/02/2015 URINE MICROALBUMIN 06/04/2020 06/04/2019 Depression Screening 10/10/2020 10/11/2019 LUNG CANCER SCREEN: Recommended 10/22/2020 10/23/2019 for age 55-80 with 30 + pack year history COLONOSCOPY 05/15/2023 05/15/2013 (Previously completed) DTaP,Tdap,and Td Vaccines (2 - Td) 02/24/2028 02/23/2018 INFLUENZA VACCINE Completed 03/31/2019, 04/07/2017 documented as of this encounter Results Not on filedocumented in this encounter Insurance Payer Benefit Plan / Subscriber ID Effective Dates Phone Addre ss Type Group MEDICARE MEDICARE PART xxxxxxxxxxx 2011-Valeria [phone] [address] Medicare A & B t 2 [id number] [place] [phone] documented as of this encounter
[2020-01-25 20:15] LABS: Absolute Lymphocytes (CBC) 1.6 K/uL (0.7-4.9); Basophils % 0.7 % (0-1.3); Hematocrit 41.9 % (39.6-49.0); Lymphocytes % 13.6 % (15.3-44.8); MPV 9.6 fL (7.6-11.3); RBC Red Blood Cell Count 4.53 M/uL (4.33-5.43)
[2020-01-25 20:42] LABS: ALT/SGPT 39 U/L (12-78); Albumin 3.8 g/dL (3.4-5.0); Alkaline Phosphatase 112 U/L (45-117); BUN Blood Urea Nitrogen 11 mg/dL (7-18); Bicarbonate 27 mmol/L (21-32); Bilirubin Direct < 0.1 mg/dL (0-0.2); Bilirubin Total 0.5 mg/dL (0.2-1.0); CKMB Creatine Kinase MB < 1.0 ng/mL (0.3-3.6); Creatine Phosphokinase 90 U/L (39-308); Glucose Level 210 mg/dL (74-106); Protein, Total 7.5 g/dL (6.4-8.2); Sodium Level 141 mmol/L (136-145); Troponin (Emerg Dept Use Only) < 0.02 ng/mL (0.0-0.045); Troponin I < 0.02 ng/mL (0.0-0.045)
[2020-01-25 20:43] LABS: AST/SGOT 31 U/L (15-37); Lipase < 10 U/L (73-393); Magnesium 2.1 mg/dL (1.8-2.4)
[2020-01-25] MEDS ORDERED: METOCLOPRAMIDE 10 MG/2mL INJ ONE (20:47)
[2020-01-25] MEDS ORDERED: DIPHENHYDRAMINE 50 MG/ML VIAL ONE (20:47)
[2020-01-25] MEDS ORDERED: KETOROLAC 30 MG/ML INJ ONE (20:48)
[2020-01-25] MEDS ORDERED: NA CHLORIDE 0.9% 1,000 ML ONE (20:48)
--- NOTE | 2020-01-25 20:48 | RAD REPORT ---
EXAM DESCRIPTION: CT - CTHCSPWOC - 01/25/2020 8:35 pm CLINICAL HISTORY: Trauma, head and neck injury. PAIN COMPARISON: Chest Pa And Lat (2 Views) dated 12/27/2019; Chest Single View dated 04/20/2018; Chest Sin gle View dated 04/18/2018; Chest Single View dated 04/16/2018Thoracic Spine W/o Cont dated 01/25/2020 TECHNIQUE: Axial 5 mm thick images of the head were obtained. Axial 2 mm thick images of the cervical spine were obtained with sagittal and coronal reconstruction images generated and reviewed. All CT scans are performed using dose optimization technique as appropriate and may include automated exposure control or mA/KV adjustment according to patient size. FINDINGS: CT HEAD WITHOUT CONTRAST: No acute hemorrhage, hydrocephalus or extra-axial collection is identified.No areas of brain edema or midline shift. The paranasal sinuses and mastoids are clear.The calvarium is intact. CT CERVICAL SPINE WITHOUT CONTRAST: No fracture or subluxation.No prevertebral soft tissues swelling is identified. Lung apices are emphy sematous. IMPRESSION: No acute intracranial or cervical spine findings.
--- NOTE | 2020-01-25 20:53 | RAD REPORT ---
EXAM DESCRIPTION: CT - Thoracic Spine W/o Cont - 01/25/2020 8:35 pm CLINICAL HISTORY: Radiculopathy. PAIN COMPARISON: Abdomen Pelvis W Contrast dated 02/17/2019 TECHNIQUE: Axial CT imaging through the thoracic spine was performed with coronal and sagittal re-fo rmatted images. All CT scans are performed using dose optimization technique as appropriate and may include automated exposure control or mA/KV adjustment according to patient size. FINDINGS: A mild superior compression deformity is seen affecting a midthoracic level, which may be acute in timeframe. No significant canal compromise. Mild spondylosis is present throughout the thora cic levels. Thoracic spine alignment is within normal limits. Minimal thickening of the paraspinal tissues are pr esent. No evidence of significant central canal stenosis. Small calculus is present in the left kidney. 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 Diffus e COPD. IMPRESSION: Mild superior compression fracture of a midthoracic level suspected to be T7 is seen. Ve rtebral body height loss is estimated 5-10%. This is probably acute to subacute in timeframe. No sandra l compromise.
[2020-01-25 20:57] LABS: Protime INR 0.96
[2020-01-25 21:22] LABS: Urine Blood NEGATIVE (NEG); Urine Glucose TRACE (NEG); Urine Protein NEGATIVE (NEG); Urine Specific Gravity 1.015 (1.005-1.030)
--- NOTE | 2020-01-25 21:27 | EDPHYS ---
Physician Documentation [facility] Name: Rafia Segundo Age: 64 yrs Sex: Male : 1955 Arrival Date: 01/25/2020 Time: 19:22 Bed 23 Private MD: ED Physician Amira Peralta HPI: 01/24 19:47 This 64 yrs old Male presents to ER via EMS with complaints of Near Syncope. ma2 19:47 The patient has experienced syncope, headache, upper back pain . Onset: The ma2 symptoms/episode began/occurred suddenly, gradually, 1 hour(s) ago. Associated signs and symptoms: Pertinent positives: diarrhea, Pertinent negatives: blurred vision, confusion. The patient has not experienced similar symptoms in the past. Historical: - Allergies: 19:29 Skelaxin; jv1 - PMHx: 19:29 Back pain; Chronic pain; Cancer of gall bladder duct; Diabetes - IDDM; Insulin pump; jv1 Hypertension; Pancreatitis; RESTLESS LEG SYN; - Immunization history:: Adult Immunizations up to date. - Social history:: Smoking status: Patient reports the use of cigarette tobacco products, smokes one pack cigarettes per day. Patient/guardian denies using alcohol, street drugs, The patient lives with family. - Family history:: not pertinent. ROS: 19:47 Constitutional: Negative for fever, chills, and weight loss. ma2 19:47 All other systems are negative. Exam: 19:47 Abdomen/GI: Exam negative for bruising, guarding, hepatomegaly. ma2 19:47 Constitutional: This is a well developed, well nourished patient who is awake, alert, and in no acute distress. Head/Face: Normocephalic, atraumatic. Eyes: Pupils equal round and reactive to light, extra-ocular motions intact. Lids and lashes normal. Conjunctiva and sclera are non-icteric and not injected. Cornea within normal limits. Periorbital areas with no swelling, redness, or edema. ENT: Nares patent. No nasal discharge, no septal abnormalities noted. Tympanic membranes are normal and external auditory canals are clear. Oropharynx with no redness, swelling, or masses, exudates, or evidence of obstruction, uvula midline. Mucous membranes moist. Neck: Trachea midline, no thyromegaly or masses palpated, and no cervical lymphadenopathy. Supple, full range of motion without nuchal rigidity, or vertebral point tenderness. No Meningismus. Chest/axilla: Normal chest wall appearance and motion. Nontender with no deformity. No lesions are appreciated. Cardiovascular: Regular rate and rhythm with a normal S1 and S2. No gallops, murmurs, or rubs. Normal PMI, no JVD. No pulse deficits. Respiratory: Lungs have equal breath sounds bilaterally, clear to auscultation and percussion. No rales, rhonchi or wheezes noted. No increased work of breathing, no retractions or nasal flaring. Abdomen/GI: Soft, non-tender, with normal bowel sounds. No distension or tympany. No guarding or rebound. No evidence of tenderness throughout. MS/ Extremity: Pulses equal, no cyanosis. Neurovascular intact. Full, normal range of motion. Neuro: Awake and alert, GCS 15, oriented to person, place, time, and situation. Cranial nerves II-XII grossly intact. Motor strength 5/5 in all extremities. Sensory grossly intact. Cerebellar exam normal. Normal gait. Vital Signs: 19:23 BP 151 / 76; Pulse 72; Resp 18; Temp 97.8; Pulse Ox 98% ; Weight 78.02 kg; Height 5 ft. jv1 9 in. (175.26 cm); Pain 4/10; 19:33 BP 145 / 73; Pulse 72; Resp 18; Temp 97.8; Pulse Ox 98% ; Weight 78.02 kg; Height 5 ft. jv1 9 in. (175.26 cm); Pain 4/10; 20:30 BP 129 / 89; Pulse 80; Resp 18; Temp 98.5; Pulse Ox 99% on R/A; Pain 2/10; jv1 21:30 BP 121 / 84; Pulse 88; Resp 18; Temp 98.5; Pulse Ox 100% ; Pain 0/10; jv1 22:34 BP 151 / 71; Pulse 79; Resp 18; Temp 98; Pulse Ox 97% on R/A; Pain 0/10; jv1 23:51 BP 138 / 73; Pulse 71; Resp 18; Temp 98; Pulse Ox 98% ; Pain 0/10; jv1 19:33 Body Mass Index 25.40 (78.02 kg, 175.26 cm) jv1 NIH Stroke Scale Scores: 20:30 NIHSS Score: 0 jv1 MDM: 19:28 Patient medically screened. or2 19:47 Differential Diagnosis: cardiac arrhythmia, transient ischemic attack, vasovagal ma2 episode. Data reviewed: vital signs, nurses notes. Counseling: I had a detailed discussion with the patient and/or guardian regarding: the historical points, exam findings, and any diagnostic results supporting the discharge/admit diagnosis, the presence of at least one elevated blood pressure reading (>120/80) during this emergency department visit, the need for outpatient follow up. Response to treatment: the patient's symptoms have markedly improved after treatment. 01/24 19:38 Order name: Basic Metabolic Panel [facility] 01/24 19:38 Order name: CBC with Diff [facility] 01/24 19:38 Order name: Ckmb [facility] 01/24 19:38 Order name: CPK [facility] 01/24 19:38 Order name: Hepatic Function; Complete Time: 21:03 [facility] 01/24 19:38 Order name: Lipase; Complete Time: 21:03 or01/24 19:38 Order name: Magnesium; Complete Time: 21:01/24 19:38 Order name: Protime (+inr); Complete Time: 21:22 01/24 19:38 Order name: Ptt, Activated; Complete Time: 21:22 01/24 19:38 Order name: Troponin (emerg Dept Use Only); Complete Time: 21:03 or01/24 19:38 Order name: COVID-19 [facility] 01/24 19:38 Order name: Flu 01/24 19:38 Order name: Strep 01/24 19:38 Order name: Troponin I; Complete Time: 21:03 01/24 19:38 Order name: CT Head C Spine; Complete Time: 21:03 or01/24 19:38 Order name: CT Thoracic Spine Wo Cont; Complete Time: 21:03 or01/24 19:38 Order name: EKG; Complete Time: 19:39 01/24 19:38 Order name: Cardiac monitoring; Complete Time: 21:11 [facility] 01/24 19:38 Order name: EKG - Nurse/Tech; Complete Time: 21:11 or01/24 19:38 Order name: IV Saline Lock; Complete Time: 21:11 [facility] 01/24 19:39 Order name: Basic Metabolic Panel; Complete Time: 21:03 [facility] 01/24 19:39 Order name: CBC with Automated Diff; Complete Time: 21:03 [facility] 01/24 19:39 Order name: CKMB Creatine Kinase MB; Complete Time: 21:03 [facility] 01/24 19:39 Order name: Creatine Phosphokinase; Complete Time: 21:03 [facility] 01/24 21:16 Order name: Urine Dipstick--Ancillary (enter results) 4 01/24 21:55 Order name: Throat Culture [facility] 01/24 19:38 Order name: Labs collected and sent; Complete Time: 21:11 [facility] 01/24 19:38 Order name: NPO; Complete Time: 21:11 [facility] 01/24 19:38 Order name: O2 Per Protocol; Complete Time: 21:15 [facility] 01/24 19:38 Order name: O2 Sat Monitoring; Complete Time: 21:15 [facility] 01/24 19:38 Order name: Urine Dipstick-Ancillary (obtain specimen); Complete Time: 21:15 [facility] 01/24 19:38 Order name: Droplet/Contact Precautions; Complete Time: 21:11 ma2 Administered Medications: 20:10 Drug: NS 0.9% 1000 ml Route: IV; Rate: 1 bolus; Site: right antecubital; mg2 22:13 Follow up: Response: No adverse reaction; IV Status: Completed infusion jv1 20:15 Drug: Benadryl 25 mg Route: IVP; Site: right antecubital; mg2 22:11 Follow up: Response: No adverse reaction jv1 20:17 Drug: Reglan 20 mg Route: IVP; Infused Over: 15 mins; Site: right antecubital; mg2 22:12 Follow up: Response: No adverse reaction jv1 21:09 Drug: TORadol 30 mg Route: IVP; Site: right antecubital; mg2 22:12 Follow up: Response: No adverse reaction; Pain is decreased jv1 Disposition: 01/25/20 21:26 Hospitalization ordered by Erlin Cisneros for Observation. Preliminary diagnosis is Syncope and collapse. - Bed requested for Telemetry/MedSurg (observation). - Status is Observation. sg - Condition is Stable. - Problem is new. - Symptoms are unchanged. NIH Stroke Scale - NIH Stroke Score Date: 01/25/2020 Time: 20:30 Total Score = 0 1a. Level of Consciousness (LOC) - 0(Alert) 1b. Level of Consciousness (LOC) (Year \T\ Age) - 0(Both) 1c. LOC Commands (Open \T\ Closes Eyes/Computing Consultant) - 0(Both) 2. Best Gaze (Lateral Gaze Paresis) - 0(Normal) 3. Visual Field Loss - 0(No visual loss) 4. Facial Palsy - 0(Normal) 5a. Left Arm: Motor (10-second hold) - 0(No drift) 5b. Right Arm: Motor (10-second hold) - 0(No drift) 6a. Left Leg: Motor (5-second hold - always test supine) - 0(No drift) 6b. Right Leg: Motor (5-second hold - always test supine) - 0(No drift) 7. Limb Ataxia (finger/nose \T\ heel/devries - test with eyes open) - 0(Absent) 8. Sensory Loss (pinprick arms/legs/face) - 0(Normal) 9. Best Language: Aphasia (description/naming/reading) - 0(No aphasia) 10. Dysarthria (speech clarity - read or repeat words) - 0(Normal) 11. Extinction and Inattention (visual/tactile/auditory/spatial/personal) - 0(No abnormality) Initials: jv1 Signatures: Dispatcher [employer] EDMS Kunal West RN RN sg Garcia, Cindy, RN RN Amira Peralta MD MD [facility] Carlo Portillo RN RN [facility] Anabelle Granados RN RN jv1 Corrections: (The following items were deleted from the chart) 23:40 21:26 Hospitalization Ordered by Erlin Cisneros for Observation. Preliminary cg diagnosis is Syncope and collapse. Bed requested for Telemetry/MedSurg (observation). Status is Observation. Condition is Stable. Problem is new. Symptoms are unchanged. ma2 01/25 00:16 01/24 23:40 01/25/2020 21:26 Hospitalization Ordered by Erlin Cisneros for sg Observation. Preliminary diagnosis is Syncope and collapse. Bed requested for Telemetry/MedSurg (observation). Status is Observation. Condition is Stable. Problem is new. Symptoms are unchanged.
--- NOTE | 2020-01-25 21:27 | ER ---
Nurse's Notes [facility] Name: Rafia Segundo Age: 64 yrs Sex: Male : 1955 Arrival Date: 01/25/2020 Time: 19:22 Bed 23 Private MD: Diagnosis: Syncope and collapse Presentation: 01/24 19:23 Chief complaint: Patient states: pt stated that as he was walking out the front door, jv1 he felt dizzy and passed out. Coronavirus screen: Proceed with normal triage. Patient denies a cough. Patient denies shortness of breath or difficulty breathing. Patient denies measured and/or subjective temperature greater than 100.4F prior to today's visit. Patient denies travel on a cruise ship or to a country the [facility] currently lists as an affected area. Patient denies contact with known and/or suspected case of COVID-19. Ebola Screen: No symptoms or risks identified at this time. Initial Sepsis Screen: Does the patient meet any 2 criteria? No. Patient's initial sepsis screen is negative. Does the patient have a suspected source of infection? No. Patient's initial sepsis screen is negative. Risk Assessment: Do you want to hurt yourself or someone else? Patient reports no desire to harm self or others. Onset of symptoms was January 25, 2020 at 18:29. 19:23 Method Of Arrival: EMS: [facility] jv1 19:23 Acuity: ARBEN 3 jv1 Historical: - Allergies: 19:29 Skelaxin; jv1 - PMHx: 19:29 Back pain; Chronic pain; Cancer of gall bladder duct; Diabetes - IDDM; Insulin pump; jv1 Hypertension; Pancreatitis; RESTLESS LEG SYN; - Immunization history:: Adult Immunizations up to date. - Social history:: Smoking status: Patient reports the use of cigarette tobacco products, smokes one pack cigarettes per day. Patient/guardian denies using alcohol, street drugs, The patient lives with family. - Family history:: not pertinent. Screenin:34 Abuse screen: Denies threats or abuse. Nutritional screening: No deficits noted. jv1 Tuberculosis screening: No symptoms or risk factors identified. Fall Risk Fall in past 12 months (25 points). No secondary diagnosis (0 pts). IV access (20 points). Ambulatory Aid- None/Bed Rest/Nurse Assist (0 pts). Gait- Normal/Bed Rest/Wheelchair (0 pts) Mental Status- Oriented to own ability (0 pts). 20:30 Patient has been NPO before screening. The patient is alert, able to follow commands. jv1 The patient does not exhibit slurred or garbled speech The patient is not exhibiting difficulty speaking. The patient does not exhibit difficulty understanding words. The patient is able to swallow own secretions with no drooling or need for suction. Patient tolerated one teaspoon of water. No drooling, immediate coughing, gurgling, or clearing of the throat was noted. The patient tolerated 90mL of water. No drooling, immediate coughing, gurgling, or clearing of the throat was noted. The patient passed the bedside swallow screening. Oral medications may be given as ordered. Contact Physician for further diet orders. Provider notified of bedside swallow screening results: Erlin Cisneros. Assessment: 19:30 General: Appears uncomfortable, well groomed, well developed, Behavior is calm, jv1 cooperative, appropriate for age. Pain: Complains of pain in head and in between shoulder blades Pain does not radiate. Pain currently is 4 out of 10 on a pain scale. Quality of pain is described as aching, Pain began 1 hour ago. Neuro: Level of Consciousness is awake, alert, obeys commands, Oriented to person, place, time, situation. Cardiovascular: Denies chest pain, Heart tones S1 S2 present Capillary refill < 3 seconds. Respiratory: Airway is patent Respiratory effort is even, unlabored, Respiratory pattern is regular, symmetrical. GI: Abdomen is round non-distended, pt has an insulin pump on the RLQ Bowel sounds present X 4 quads. : No signs and/or symptoms were reported regarding the genitourinary system. EENT: No signs and/or symptoms were reported regarding the EENT system. Derm: Skin is intact, is healthy with good turgor, Skin is pink, warm \T\ dry. Musculoskeletal: Circulation, motion, and sensation intact. Capillary refill < 3 seconds, Range of motion: intact in all extremities. 19:31 Reassessment: MD in the room with pt. jv1 20:30 Reassessment: Patient appears in no apparent distress at this time. No changes from jv1 previously documented assessment. Patient and/or family updated on plan of care and expected duration. Pain level reassessed. Patient is alert, oriented x 3, equal unlabored respirations, skin warm/dry/pink. Patient states feeling better. Patient states symptoms have improved. 21:18 Reassessment: Provider in the room with pt, explaining that pt will be admitted. jv1 22:17 Reassessment: Dr. Cisneros in the room with pt. jv1 22:30 Reassessment: Patient appears in no apparent distress at this time. No changes from jv1 previously documented assessment. Patient and/or family updated on plan of care and expected duration. Pain level reassessed. Patient is alert, oriented x 3, equal unlabored respirations, skin warm/dry/pink. Patient denies pain at this time. Patient states feeling better. Patient states symptoms have improved. 23:43 Reassessment: Patient appears in no apparent distress at this time. No changes from jv1 previously documented assessment. Patient and/or family updated on plan of care and expected duration. Pain level reassessed. Patient is alert, oriented x 3, equal unlabored respirations, skin warm/dry/pink. Patient denies pain at this time. Patient states feeling better. Patient states symptoms have improved. 01/25 00:14 Reassessment: talked with Dr. Peralta and asked if the pt is PUI or not, he said pt is jv1 not a PUI, he was just tested for routine covid testing. Vital Signs: 01/24 19:23 BP 151 / 76; Pulse 72; Resp 18; Temp 97.8; Pulse Ox 98% ; Weight 78.02 kg; Height 5 ft. jv1 9 in. (175.26 cm); Pain 4/10; 19:33 BP 145 / 73; Pulse 72; Resp 18; Temp 97.8; Pulse Ox 98% ; Weight 78.02 kg; Height 5 ft. jv1 9 in. (175.26 cm); Pain 4/10; 20:30 BP 129 / 89; Pulse 80; Resp 18; Temp 98.5; Pulse Ox 99% on R/A; Pain 2/10; jv1 21:30 BP 121 / 84; Pulse 88; Resp 18; Temp 98.5; Pulse Ox 100% ; Pain 0/10; jv1 22:34 BP 151 / 71; Pulse 79; Resp 18; Temp 98; Pulse Ox 97% on R/A; Pain 0/10; jv1 23:51 BP 138 / 73; Pulse 71; Resp 18; Temp 98; Pulse Ox 98% ; Pain 0/10; jv1 19:33 Body Mass Index 25.40 (78.02 kg, 175.26 cm) jv1 NIH Stroke Scale Scores: 20:30 NIHSS Score: 0 jv1 ED Course: 19:22 Patient arrived in ED. sg 19:28 Amira Peralta MD is Attending Physician. ma2 19:29 Triage completed. jv1 19:30 Inserted saline lock: 20 gauge in right forearm, using aseptic technique. jv1 19:35 Arm band placed on right wrist. jv1 19:35 Patient has correct armband on for positive identification. Bed in low position. Call jv1 light in reach. Side rails up X2. 20:00 Inserted saline lock: 20 gauge in left upper arm, using aseptic technique. jv1 20:36 CT Head C Spine In Process Unspecified. EDMS 20:36 CT Thoracic Spine Wo Cont In Process Unspecified. EDMS 21:03 Kandy Rios, RN is Primary Nurse. ls4 21:26 Erlin Cisneros is Hospitalizing Provider. [facility] 01/25 00:04 No provider procedures requiring assistance completed. Patient admitted, IV remains in jv1 place. Administered Medications: 01/24 20:10 Drug: NS 0.9% 1000 ml Route: IV; Rate: 1 bolus; Site: right antecubital; mg2 22:13 Follow up: Response: No adverse reaction; IV Status: Completed infusion jv1 20:15 Drug: Benadryl 25 mg Route: IVP; Site: right antecubital; mg2 22:11 Follow up: Response: No adverse reaction jv1 20:17 Drug: Reglan 20 mg Route: IVP; Infused Over: 15 mins; Site: right antecubital; mg2 22:12 Follow up: Response: No adverse reaction jv1 21:09 Drug: TORadol 30 mg Route: IVP; Site: right antecubital; mg2 22:12 Follow up: Response: No adverse reaction; Pain is decreased jv1 Outcome: 21:26 Decision to Hospitalize by Provider. ma2 01/25 00:05 Admitted to Med/surg accompanied by nurse, via stretcher, room 213, Report called to j Brittanie Cummings RN Condition: stable Instructed on the need for admit. 00:16 Patient left the ED. NIH Stroke Scale - NIH Stroke Score Date: 01/25/2020 Time: 20:30 Total Score = 0 1a. Level of Consciousness (LOC) - 0(Alert) 1b. Level of Consciousness (LOC) (Year \T\ Age) - 0(Both) 1c. LOC Commands (Open \T\ Closes Eyes/General Pediatrician) - 0(Both) 2. Best Gaze (Lateral Gaze Paresis) - 0(Normal) 3. Visual Field Loss - 0(No visual loss) 4. Facial Palsy - 0(Normal) 5a. Left Arm: Motor (10-second hold) - 0(No drift) 5b. Right Arm: Motor (10-second hold) - 0(No drift) 6a. Left Leg: Motor (5-second hold - always test supine) - 0(No drift) 6b. Right Leg: Motor (5-second hold - always test supine) - 0(No drift) 7. Limb Ataxia (finger/nose \T\ heel/devries - test with eyes open) - 0(Absent) 8. Sensory Loss (pinprick arms/legs/face) - 0(Normal) 9. Best Language: Aphasia (description/naming/reading) - 0(No aphasia) 10. Dysarthria (speech clarity - read or repeat words) - 0(Normal) 11. Extinction and Inattention (visual/tactile/auditory/spatial/personal) - 0(No abnormality) Initials: jv1 Signatures: Dispatcher [employer] Kunal Patel, RN RN Amira Peralta MD MD ma2 Carlo Portillo RN RN mg2 Anabelle Granados RN RN jv1 Kandy Rios RN RN ls4
--- NOTE | 2020-01-25 23:21 | P.HP ---
Certification for Inpatient Patient admitted to: Observation With expected LOS: <2 Midnights Practitioner: I am a practitioner with admitting privileges, knowledge of patient current condition, hospital course, and medical plan of care. Services: Services provided to patient in accordance with Admission requirements found in Title 42 Section 412.3 of the Code of Federal Regulations Patient History Date of Service: 01/25/20 Reason for admission: Syncope History of Present Illness: 64-year-old gentleman with a history of diabetes mellitus on insulin pump, history of cholangiocarcinoma status post Whipple's procedure present to the emergency department after syncopal episode at home. Patient stated he passed out while walking to his porch at home, event preceded by lightheadedness, no palpitation or chest pain. Patient report prior episode of hypoglycemia. Patient reports 1 week history of diarrhea. He was normotensive in the ED. Workup in the ED has been unremarkable. EKG demonstrates sinus rhythm. Patient is placed under observation for syncope workup. Allergies metaxalone [From Skelaxin] Allergy (Mild, Verified 02/18/19 01:30) Rash Home Medications: Albuterol Neb [Proventil 0.083% Neb Soln] 2.5 mg IH BID PRN 02/18/19 Benzonatate 100 mg PO TID PRN 02/18/19 Cyclobenzaprine [Flexeril*] 10 mg PO TID PRN 02/18/19 Gabapentin 400 mg PO TID 02/18/19 Hydrocodone/Acetaminophen [[place] 7.5-325 Tablet] 1 each PO Q6H PRN 02/18/19 Losartan Potassium 100 mg PO DAILY 02/18/19 Lovastatin 20 mg PO BEDTIME 02/18/19 Montelukast Sodium [Singulair] 10 mg PO DAILY 02/18/19 Pantoprazole Sodium [Protonix] 40 mg PO DAILY 02/18/19 clonazePAM [Klonopin*] 1 mg PO BID 02/18/19 Lipase/Protease/Amylase [Azalia Yee 12,000 Units Capsule] 1 each PO TIDWM #90 capsule. 02/20/19 - Past Medical/Surgical History Diabetic: Yes -: chronic pain -: Diabetes -: HTN -: pancreatitis -: restless leg syndrome -: cancer of the lip -: whipple procedure -: bilateral shoulder surgery -: knee and back surgery - Family History Family History: Reviewed- Non-Contributory - Social History Alcohol use: No CD- Drugs: Yes Caffeine use: Yes Review of Systems Other: Except as documented, all other systems reviewed and negative. Physical Examination - Physical Exam General: Alert, In no apparent distress HEENT: Normocephalic, PERRLA, Mucous membr. moist/pink, Sclerae nonicteric Neck: Supple, JVD not distended Respiratory: Clear to auscultation bilaterally, Normal air movement Cardiovascular: No edema, Regular rate/rhythm, Normal S1 S2 Capillary refill: <2 Seconds Gastrointestinal: Normal bowel sounds, Soft and benign, Non-distended, No tenderness Musculoskeletal: No swelling, No erythema Integumentary: No rashes Neurological: Normal speech, Normal strength at 5/5 x4 extr, Cranial nerves 3-12 intact - Studies Laboratory Data (last 24 hrs) 01/25/20 20:07: PT 11.3, INR 0.96, APTT 29.6 01/25/20 19:45: WBC 11.9 H, Hgb 13.9, Hct 41.9, Plt Count 235 01/25/20 19:45: Sodium 141, Potassium 4.0, BUN 11, Creatinine 1.00, Glucose 210 H, Magnesium 2.1, Total Bilirubin 0.5, AST 31, ALT 39, Alkaline Phosphatase 112, Troponin I < 0.02, Lipase < 10 L Microbiology Data (last 24 hrs): 01/25/20 20:09 Nasopharnyx Influenza Type A Antigen Screen - Final 01/25/20 20:09 Nasopharnyx Influenza Type B Antigen Screen - Final 01/25/20 20:09 Throat Group A Streptococcus Rapid Screen - Final Assessment and Plan - Problems (Diagnosis) (1) Syncope and collapse Current Visit: Yes Status: Acute (2) Chronic pancreatitis Current Visit: Yes Status: Acute (3) Diabetes mellitus Current Visit: Yes Status: Acute (4) H/O gallbladder cancer Current Visit: No Status: Acute - Plan Place under observation. Trend troponin Syncope workup with echocardiogram and carotid Doppler Check orthostatics vitals. IV hydration. Hold insulin upon and manage blood sugar with insulin sliding scale and Lantus insulin. Pancreatic enzyme supplementation. - Advance Directives Does patient have a Living Will: No Does patient have a Durable POA for Healthcare: No
[2020-01-26 00:52] VITALS: BMI 24.5
[2020-01-26] MEDS ORDERED: GLUCAGON 1 MG/VIAL IM PRN ×2 (01:35→09:05)
[2020-01-26] MEDS ORDERED: D50W 25 GM/50 ML SYRINGE/VIAL IV PRN ×2 (01:35→09:05)
[2020-01-26] MEDS: NA CHLORIDE 0.9% 1,000 ML IV SCH ×3 (02:25→22:23)
[2020-01-26 06:01] LABS: Absolute Lymphocytes (CBC) 2.9 K/uL (0.7-4.9); Basophils % 2.5 % (0-1.3); Hematocrit 37.3 % (39.6-49.0); Lymphocytes % 36.8 % (15.3-44.8); MPV 9.8 fL (7.6-11.3); RBC Red Blood Cell Count 4.07 M/uL (4.33-5.43)
[2020-01-26 06:25] LABS: Phosphorus 2.9 mg/dL (2.5-4.9); Thyroid Stimulating Hormone 2.52 uIU/mL (0.360-3.740)
[2020-01-26 06:33] LABS: Urine Appearance CLEAR; Urine Bilirubin NEGATIVE (NEG); Urine Blood NEGATIVE (NEG); Urine Color YELLOW; Urine Glucose 3+ (NEG); Urine Protein NEGATIVE (NEG); Urine Specific Gravity 1.015 (1.005-1.030); Urine Urobilinogen 0.2 mg/dL (0.2-1.0)
[2020-01-26 06:35] LABS: Urine Microscopic Reflex NO UMIC
[2020-01-26] MEDS ORDERED: INSULIN GLARGINE 100 UNITS/ML SQ SCH (08:00)
[2020-01-26] MEDS: INSULIN -REGULAR HUMAN 50 UNIT/0.5 ML ML SQ SCH ×4 (08:44→20:56)
[2020-01-26] MEDS: ENOXAPARIN 40 MG/0.4 ML SQ SCH (08:45)
[2020-01-26] MEDS ORDERED: CYCLOBENZAPRINE 10 MG TAB PO PRN (09:03)
[2020-01-26] MEDS ORDERED: HYDROCODONE/APAP 7.5/325 MG TAB PO PRN (09:03)
--- NOTE | 2020-01-26 09:10 | P.PN ---
Subjective Date of Service: 01/26/20 Chief Complaint: Syncope Patient reports poor sleep from restless leg. He denies any dizziness. He is not orthostatic. Physical Examination - Vital Signs Temperature: 99.6 F Blood Pressure: 146/68 Pulse: 79 Respirations: 16 Pulse Ox (%): 96 - Physical Exam General: Alert, In no apparent distress HEENT: Mucous membr. moist/pink Neck: 2+ carotid pulse no bruit, JVD not distended Respiratory: Clear to auscultation bilaterally, Normal air movement Cardiovascular: No edema, Regular rate/rhythm, Normal S1 S2 Gastrointestinal: Normal bowel sounds, Soft and benign, No tenderness Musculoskeletal: No swelling, No erythema Integumentary: No rashes Neurological: Normal speech, Normal strength at 5/5 x4 extr - Studies Laboratory Data (last 24 hrs) 01/25/20 20:07: PT 11.3, INR 0.96, APTT 29.6 01/25/20 19:45: WBC 11.9 H, Hgb 13.9, Hct 41.9, Plt Count 235 01/25/20 19:45: Sodium 141, Potassium 4.0, BUN 11, Creatinine 1.00, Glucose 210 H, Magnesium 2.1, Total Bilirubin 0.5, AST 31, ALT 39, Alkaline Phosphatase 112, Troponin I < 0.02, Lipase < 10 L Microbiology Data (last 24 hrs): 01/25/20 20:09 Nasopharnyx Influenza Type A Antigen Screen - Final 01/25/20 20:09 Nasopharnyx Influenza Type B Antigen Screen - Final 01/25/20 20:09 Throat Group A Streptococcus Rapid Screen - Final Assessment And Plan - Current Problems (Diagnosis) (1) Syncope and collapse Current Visit: Yes Status: Acute (2) Chronic pancreatitis Current Visit: Yes Status: Acute (3) Diabetes mellitus Current Visit: Yes Status: Acute (4) H/O gallbladder cancer Current Visit: No Status: Acute (5) Restless leg syndrome Current Visit: Yes Status: Acute - Plan Troponin trended negative Echocardiogram and carotid Doppler are pending. Patient is not orthostatic. Discontinue IV fluid Hold insulin pump and manage blood sugar with insulin sliding scale and Lantus insulin. Start Lantus 15 units daily and titrate Pancreatic enzyme supplementation. Continue [place] for pain. Resume other home medications.
[2020-01-26] MEDS: LOSARTAN POTASSIUM 50 MG TABLET PO SCH (10:40)
[2020-01-26] MEDS: LIPASE/PROTEASE/AMYLASE CAP PO SCH ×2 (12:06→17:07)
[2020-01-26] MEDS: GABAPENTIN 400 MG CAP PO SCH ×2 (15:36→20:55)
--- NOTE | 2020-01-26 19:58 | RAD REPORT ---
EXAM DESCRIPTION: USCarotid Artery Bilateral01/26/2020 7:35 pm CLINICAL HISTORY: syncope COMPARISON: None FINDINGS: The velocity of the right internal carotid artery equals 120 cm/sec. The right ICA/CCA rat io 1. 2 The velocity of the left internal carotid artery equals 86 cm/sec. The left ICA/CCA ratio .7 Mild plaque is present within the carotid arteries. The vertebral arteries demonstrate antegrade flow IMPRESSION: Mild plaque within the carotid arteries without evidence of a hemodynamically significan t stenosis NASCET criteria used. Mild 0-49% stenosis Moderate 50-69% stenosis Severe 70-99% stenosis
[2020-01-26] MEDS: clonazePAM 1 MG TAB PO SCH (20:55)
[2020-01-26] MEDS: ATORVASTATIN 10 MG TAB PO SCH (20:55)
[2020-01-27] MEDS: INSULIN -REGULAR HUMAN 50 UNIT/0.5 ML ML SQ SCH ×4 (07:30→19:53)
[2020-01-27] MEDS ORDERED: INSULIN GLARGINE 100 UNITS/ML SQ SCH (08:00)
[2020-01-27] MEDS: GABAPENTIN 400 MG CAP PO SCH ×3 (08:44→19:54)
[2020-01-27] MEDS: ENOXAPARIN 40 MG/0.4 ML SQ SCH (08:44)
[2020-01-27] MEDS: LIPASE/PROTEASE/AMYLASE CAP PO SCH ×3 (08:44→16:00)
[2020-01-27] MEDS: LOSARTAN POTASSIUM 50 MG TABLET PO SCH (08:45)
[2020-01-27] MEDS: clonazePAM 1 MG TAB PO SCH ×2 (09:00→19:54)
[2020-01-27] MEDS ORDERED: PANTOPRAZOLE 40MG TABLET PO SCH (09:00)
[2020-01-27] MEDS: NA CHLORIDE 0.9% 1,000 ML IV SCH ×3 (10:27→19:53)
--- NOTE | 2020-01-27 11:04 | P.DS ---
Admission Date: 01/25/20 Discharge Date: 01/27/20 Disposition: ROUTINE DISCHARGE Reason for Admission: Syncope - Problems (1) Syncope and collapse Current Visit: Yes Status: Acute (2) Chronic pancreatitis Current Visit: Yes Status: Acute (3) Diabetes mellitus Current Visit: Yes Status: Acute (4) H/O gallbladder cancer Current Visit: No Status: Acute (5) Restless leg syndrome Current Visit: Yes Status: Acute Brief History of Present Illness: 64-year-old gentleman with a history of diabetes mellitus on insulin pump, history of cholangiocarcinoma status post Whipple's procedure present to the emergency department after syncopal episode at home. Patient stated he passed out while walking to his porch at home, event preceded by lightheadedness, no palpitation or chest pain. Patient report prior episode of hypoglycemia. Patient reports 1 week history of diarrhea. He was normotensive in the ED. Workup in the ED has been unremarkable. EKG demonstrates sinus rhythm. Patient was placed under observation for syncope workup. Hospital Course: Patient placed under observation. Troponin trended came back. Carotid Doppler was negative for significant carotid artery stenosis. Echocardiogram was done and the result is pending to be followed. Patient was not orthostatic. He was symptom-free during the hospital stay. Patient was ambulatory with no issues. Vital Signs/Physical Exam: Temp Pulse Resp BP Pulse Ox 97.9 F 73 18 153/71 H 94 01/27/20 08:00 01/27/20 08:00 01/27/20 08:00 01/27/20 08:00 01/27/20 08:00 General: Alert, In no apparent distress HEENT: Mucous membr. moist/pink Neck: Supple Cardiovascular: Normal pulses, Regular rate/rhythm Gastrointestinal: Normal bowel sounds, Soft and benign, No tenderness Musculoskeletal: No swelling Integumentary: No rashes Neurological: Normal strength at 5/5 x4 extr, Cranial nerves 3-12 intact Laboratory Data at Discharge: WBC 7.8 K/uL (4.3-10.9) D 01/26/20 05:20 Hgb 12.7 g/dL (13.6-17.9) L 01/26/20 05:20 Hct 37.3 % (39.6-49.0) L 01/26/20 05:20 Plt Count 227 K/uL (152-406) 01/26/20 05:20 PT 11.3 SECONDS (9.5-12.5) 01/25/20 20:07 INR 0.96 01/25/20 20:07 APTT 29.6 SECONDS (24.3-36.9) 01/25/20 20:07 Sodium 140 mmol/L (136-145) 01/26/20 05:20 Potassium 4.0 mmol/L (3.5-5.1) 01/26/20 05:20 BUN 9 mg/dL (7-18) 01/26/20 05:20 Creatinine 1.05 mg/dL (0.55-1.3) 01/26/20 05:20 Glucose 279 mg/dL (74-106) H 01/26/20 05:20 Phosphorus 2.9 mg/dL (2.5-4.9) 01/26/20 05:20 Magnesium 2.0 mg/dL (1.8-2.4) 01/26/20 05:20 Total Bilirubin 0.5 mg/dL (0.2-1.0) 01/25/20 19:45 AST 31 U/L (15-37) 01/25/20 19:45 ALT 39 U/L (12-78) 01/25/20 19:45 Alkaline Phosphatase 112 U/L (45-117) 01/25/20 19:45 Troponin I < 0.02 ng/mL (0.0-0.045) 01/26/20 05:20 Triglycerides 48 mg/dL (<150) 01/26/20 05:20 Cholesterol 100 mg/dL (<200) 01/26/20 05:20 HDL Cholesterol 33 mg/dL (40-60) L 01/26/20 05:20 Cholesterol/HDL Ratio 3.03 01/26/20 05:20 Lipase < 10 U/L (73-393) L 01/25/20 19:45 Home Medications: Cyclobenzaprine [Flexeril*] 10 mg PO TID PRN 02/18/19 Gabapentin 400 mg PO TID 02/18/19 Hydrocodone/Acetaminophen [[place] 7.5-325 Tablet] 1 each PO Q6H PRN 02/18/19 Losartan Potassium 100 mg PO DAILY 02/18/19 Lovastatin 20 mg PO BEDTIME 02/18/19 Pantoprazole Sodium [Protonix] 40 mg PO DAILY 02/18/19 clonazePAM [Klonopin*] 1 mg PO BID 02/18/19 Lipase/Protease/Amylase [Azalia Yee 12,000 Units Capsule] 1 each PO TIDWM #90 capsule. 02/20/19 Novolog Insulin Pump See Protocol SQ SEECOM 01/26/20 tadalafiL [Tadalafil] 1 tab PO DAILY PRN 01/26/20
[2020-01-27] MEDS: ATORVASTATIN 10 MG TAB PO SCH (19:54)
[2020-01-27 21:18] VITALS: TEMP 97.8
[2020-01-27 21:30] VITALS: BP 160/80
[2020-01-27 21:38] VITALS: O2SAT 96
--- NOTE | 2020-01-28 09:29 | ECHO ---
HEIGHT: 5 ft 9 in WEIGHT: 166 lb 6.4 oz DATE OF STUDY: 01/27/[address]: aby acharya 2-DIMENSIONAL: YES M.MODE: YES DOPPLER: YES COLOR FLOW: YES TDS: NO PORTABLE: NO DEFINITY: NO BUBBLE STUDY: NO DIAGNOSIS: SYNCOPE CARDIAC HISTORY: CATHERIZATION: SURGERY: PROSTHETIC VALVE: PACEMAKER: MEASUREMENTS (cm) DIASTOLIC (NORMALS) SYSTOLIC (NORMALS) IVSd 0.9 (0.6-1.2) LA Diam (1.9-4.0) LVEF 60% LVIDd 4.5 (3.5-5.7) LVIDs 3.1 (2.0-3.5) %FS 32% LVPWd 0.9 (0.6-1.2) Ao Diam 3.0 (2.0-3.7) 2 DIMENSIONAL ASSESSMENT: RIGHT ATRIUM: NORMAL LEFT ATRIUM: NORMAL RIGHT VENTRICLE: NORMAL LEFT VENTRICLE: NORMAL TRICUSPID VALVE: MILD TR MITRAL VALVE: MILD MR PULMONIC VALVE: NORMAL AORTIC VALVE: MILD CALCIFICATION PERICARDIAL EFFUSION: NONE AORTIC ROOT: NORMAL LEFT VENTRICULAR WALL MOTION: NORMAL DOPPLER/COLOR FLOW: NORMAL COMMENTS: NORMAL LEFT VENTRICULAR EJECTION FRACTION 55-60% WITH NORMAL WALL MOTION. NORMAL DIASTOLIC FUNCTION. MILD MITRAL AND TRICUSPID REGURGITATION. TECHNOLOGIST: Moriah WAYNE
== END 2020-01-27 21:45 | disposition home or self-care (01) ==
LOC: ER 19:15 → ERHOLD 23:26 → 2ND 01-26 00:09
PROVIDERS: ADMIT Internal Medicine; ATTEND Internal Medicine
DX: R55 Syncope and collapse (principal); E11.9 Type 2 diabetes mellitus without complications; G89.29 Other chronic pain; I10 Essential (primary) hypertension; G25.81 Restless legs syndrome; K86.1 Other chronic pancreatitis
CPT/HCPCS: 96361; 93005; 93306; 87070; 85025 ×2; 80048 ×2; 36415; 83735 ×2; 82550; 84100; 85610; 80061; 82947 ×9; 80076; 87081; 85730; 84443; 81003 ×2; 84484 ×4; 82553; 83690; 87804 ×2; 70450; 72125; 72128; 93880; 94760 ×5; 96375; 96374; 99285; U0002; J2765; J1200; J1650 ×2; J7030 ×6; G0378 ×3; J1815

== ENCOUNTER 2020-04-11 13:33 | Emergency (ER) | payer OTHER ==
--- OUTSIDE RECORDS SUMMARY | 2020-04-11 13:35 | XMS REPORT | Summary of Care ---
:1955 Author Organization [facility] Address [address] [place] [address] Care Team Providers Name Role Phone MD Vikash Primary Care Provider Encounter Details Date Type Department Care Team Description 01/21/2020 Orders Only [facility] Doctor Unassigned, No [address] [facility] [place] [address] [address] [place] [address] Allergies Active Allergy Reactions Severity Noted Date Comments Metaxalone Hives, Rash 10/31/2015 Chest pain documented as of this encounter (statuses as of 01/29/2020) Medications Medication Sig Dispensed Refills Start Date [...] Shortness of type, Dyspnea on Breath. exertion [id number] Take 1 capsule 270 capsule 2 9 [...] as of this encounter (statuses as of 01/29/2020) Active Problems Problem Noted Date Anxiety 08/21/2018 Other chronic pain 03/23/2018 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 Abdominal pain 08/23/2016 Liver abscess 07/31/2016 Paraesophageal fluid collection 11/06/2015 Hyponatremia 11/02/2015 Hyperlipidemia 11/02/2015 Essential hypertension 11/02/2015 Normocytic anemia 11/02/2015 Thrombocytosis 11/02/2015 Pneumobilia 11/01/2015 Biliary tract cancer 11/01/2015 documented as of this encounter (statuses as of 01/29/2020) Resolved Problems Problem Noted Date Resolved Date Type 2 diabetes mellitus with hyperglycemia 11/02/2015 08/28/2016 documented as of this encounter (statuses as of 01/29/2020) Immunizations Name Administration Dates Next Due Influenza [...] Treatment Date Type Specialty Care Team Description 02/03/2020 Office Visit Family Medicine Ray Suh MD [address] [place] [phone] 02/04/2020 Office Visit Endocrinology Diabetes & Duc Lea MD Metabolism [address], [place] [phone] Health Maintenance Due Date Last Done Comments HEPATITIS C (HCV) SCREEN 1955 PNEUMOCOCCAL 0-64 YEARS COMBINED 1962 SERIES (1 of 3 - PCV13) EYE EXAM 1966 Zoster Recombinant Vaccine 2006 (SHINGRIX) (1 of 2) INFLUENZA VACCINE (#1) 2020 03/31/2019, 04/07/2017 HgA1C 04/03/2020 10/02/2019, 06/04/2019, 03/20/2019, Additional history [...] Associated Diagnosis Comme nts DME/SUPPLY JUSTIFICATION Routine 01/21/2020 12:01 AM CDT documented in this encounter Results Not on filedocumented in this encounter Insurance Payer Benefit Plan / Subscriber ID Effective Dates Phone Addre ss Type Group MEDICARE MEDICARE PART xxxxxxxxxxx 2011-Valeria [phone] Medicare A & B t 2 [id number] [place]AR [place] [id number] documented as of this encounter
--- OUTSIDE RECORDS SUMMARY | 2020-04-11 13:35 | XMS REPORT | Continuity of Care Document ---
:1955 Author Organization [facility] t Address [address] [place] [address] Care Team Providers Name Role Phone Vikash BUSH Attending Clinician Venu BUSH Attending Clinician Doctor Unassigned, Name Attending Clinician Unavailable Bucky MARTINEZ Attending Clinician Problems This patient has no known problems. Allergies, Adverse Reactions, Alerts This patient has no known allergies or adverse reactions. Medications This patient has no known medications. Procedures This patient has no known procedures. Encounters Start End Encounter Admission Attending Care Care Encounter Source Date/Time Date/Time Type Type Clinicians Facility Department ID 2020-04-09 2020-04-09 [id number] 00:00:00 00:00:00 [facility] [id number] [place] [id number] [place] [phone] [place] [address] [address] One 2020-04-07 2020-04-07 Refill Vikash [facility] 1.2.840.114 [id number] 00:00:00 00:00:00 [facility] [id number] [place] [id number] Professio [phone] [place] 044 Office Building One 2020-04-01 2020-04-01 Refnena Suh [facility] 1.2.840.114 [id number] 00:00:00 00:00:00 [facility] [id number] [place] [id number] Professio [phone] [place] [address] [address] One 2020-03-27 2020-03-27 Refill Vikash [facility] [id number] 00:00:00 00:00:00 [facility] [id number] [place] [id number] Professio [phone] [place] [address] [address] One 2020-03-11 2020-03-11 Refill Vikash [facility] [id number] 00:00:00 00:00:00 [facility] [id number] [place] [id number] Professio [phone] [place] [address] [address] One 2020-03-01 2020-03-01 Refnena Suh, [facility] 1.2.840.114 [id number] 00:00:00 00:00:00 [facility] [id number] [place] [id number] Professio [phone] [place] [address] [address] One 2020-02-10 2020-02-10 Telephone Vikash [facility] [id number] 00:00:00 00:00:00 [facility] [id number] [place] [id number] Professio [phone] [place] [address] [address] One 2020-02-09 2020-02-09 Refill Vikash, [facility] 1.2.840.114 [id number] 00:00:00 00:00:00 [facility] [id number] [place] [id number] Professio [phone] [place] [address] [address] One 2020-02-07 2020-02-07 Refill Vikash [facility] 1.2.840.114 [id number] 00:00:00 00:00:00 [facility] [id number] [place] [id number] Professio [phone] [place] [address] [address] One 2020-02-04 2020-02-04 Telemedici Venu [facility] 1.2.840.114 [id number] 08:05:00 11:41:37 ne Visit Constantine Sanchez [id number] [place] [id number] Professio [phone] [facility] 220 Building 2020-02-03 2020-02-03 Telemedici Vikash [facility] 1.2.840.114 [id number] 08:28:20 08:43:20 ne Visit Ray Sanchez [id number] [place] [id number] Professio [phone] [place] 044 Building 2020-01-21 2020-01-21 Scot Lea [facility] [id number] 00:00:00 00:00:00 Constantine Sanchez [id number] [place] [id number] Professio [phone] [facility] 220 Building 2020-01-21 2020-01-21 Orders Doctor NATA 1.2.840.114 [id number] 00:00:00 00:00:00 Only Unassigned, DAY 350.1.13.10 [place] [facility] 4.2.7.2.686 [phone] 2020-01-14 2020-01-14 Telephone Vikash [facility] [id number] 00:00:00 00:00:00 Ray Sanchez 350.1.13.10 [place] [id number] Professio [phone] [facility] 044 [facility] 2020-01-08 2020-01-08 Refill Vikash [facility] 1.2.840.114 [id number] 00:00:00 00:00:00 Ray [facility] [id number] [place] [id number] Professio [phone] [place] 044 Office Building One 2019-12-20 2019-12-20 Telemmauri Lawler [facility] 1.2.840.114 [id number] 08:17:31 08:37:31 ne Visit Guerita Sanchez [id number] [place] [id number] Professio [phone] nal 085 Building 2019-12-12 2019-12-12 Telephone Vikash [facility] [id number] 00:00:00 00:00:00 [facility] [id number] [place] [id number] Professio [phone] [facility] 044 Office Building One 2019-12-09 2019-12-09 Refnena Suh [facility] 1.2.840.114 [id number] 00:00:00 00:00:00 [facility] [id number] [place] [id number] Professio [phone] [place] 044 Office Building One 2019-12-06 2019-12-[facility] 1.2.840.114 [id number] 00:00:00 00:00:00 [facility] [id number] [place] [id number] Professio [phone] [place] 044 Office Building One 2019-10-11 2019-10-11 [facility] [id number] 11:53:08 12:47:38 Visit Guerita [place] [id number] [place] [id number] Professio [phone] [facility]5 Building Results This patient has no known results.
--- OUTSIDE RECORDS SUMMARY | 2020-04-11 13:36 | XMS REPORT | Summary of Care ---
:1955 Author Organization [facility] Address [address] [place] [address] Care Team Providers Name Role Phone MD Vikash Primary Care Provider Reason for Visit Reason Comments Erroneous encounter-disregard Encounter Details Date Type Department Care Team Description 02/04/2020 Telemedicine Visit [facility] Constantine Lea MD ERRONEOUS Endocrinology- [address] ENCOUNTER--JAXSON [facility] (Primary Dx) [address] [place] [address], [address] [address] [place], [place] [phone] Allergies Active Allergy Reactions Severity Noted Date Comments Metaxalone Hives, Rash 10/31/2015 Chest pain documented as of this encounter (statuses as of 02/04/2020) Medications Medication Sig Dispensed Refills Start Date [...] Shortness of type, Dyspnea on Breath. 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 Abdominal pain 08/23/2016 Liver abscess 07/31/2016 Paraesophageal fluid collection 11/06/2015 Hyponatremia 11/02/2015 Hyperlipidemia 11/02/2015 Essential hypertension 11/02/2015 Normocytic anemia 11/02/2015 Thrombocytosis 11/02/2015 Pneumobilia 11/01/2015 Biliary tract cancer 11/01/2015 documented as of this encounter (statuses as of 02/04/2020) Resolved Problems Problem Noted Date Resolved Date Type 2 diabetes mellitus with hyperglycemia 11/02/2015 08/28/2016 documented as of this encounter (statuses as of 02/04/2020) Immunizations Name Administration Dates Next Due Influenza [...] Travel End No recent travel history available. COVID-19 Exposure Response Date Recorded In the last month, have you been in contact with No / Unsure 01/31/2020 2:11 PM CDT someone who was confirmed or suspected to have Coronavirus / COVID-19? documented as of this encounter Last Filed Vital Signs Not on filedocumented in this encounter Progress Notes Constantine Lea MD - 02/04/2020 2:30 PM CDTPatient rescheduled to 03/2020 documented in this encounter Plan of Treatment Date Type Specialty Care Team Description 04/15/2020 Office Visit Endocrinology Diabetes & Duc Lea MD Metabolism [address] [place], [place] [address] Health Maintenance Due Date Last Done Comments [...] filedocumented in this encounter Visit Diagnoses Diagnosis ERRONEOUS ENCOUNTER--DISREGARD - Primary documented in this encounter Insurance Payer Benefit Plan / Subscriber ID Effective Dates Phone Addre ss Type Group MEDICARE MEDICARE PART xxxxxxxxxxx 2011-Valeria [phone] [facility] Medicare A & B t 2 [id number] SKYLAR LACEY [phone] ([employer]) [place] [address] documented as of this encounter
--- OUTSIDE RECORDS SUMMARY | 2020-04-11 13:36 | XMS REPORT | Summary of Care ---
:1955 Author Organization [facility] Address [address] [place] [address] Care Team Providers Name Role Phone MD Vikash Primary Care Provider Reason for Visit Reason Comments Refill Request Encounter Details Date Type Department Care Team Description 02/09/2020 Refill [facility] Family Medicine Ray Chao MD Refill Request - [address] [place] [address] [place] [address] [phone] Allergies Active Allergy Reactions Severity Noted Date Comments Metaxalone Hives, Rash 10/31/2015 Chest pain documented as of this encounter (statuses as of 02/11/2020) Medications Medication Sig Dispensed Refills Start End Date Status Date Nebulizer Accessories Use as 1 Kit 0 [...] type, Shortness of Dyspnea on exertion Breath. husqfq-qgixjpjg-wxbhv Take 1 capsule 270 capsule 2 Active se (CREON) by mouth 3 9 12,000-38,000 -60,000 (three) times unit daily with capsuleIndications: meals. Other chronic pain CYCLOBENZAPRINE 10 mg TAKE 1 TABLET 90 tablet 1 Active tabletIndications: BY MOUTH THREE 0 Chronic back pain, TIMES A DAY unspecified back NEEDED FOR location, unspecified MUSCLE SPASMS back pain laterality doxycycline hyclate Take 1 tablet 20 tablet 0 Active 100 mg by mouth 2 0 tabletIndications: (two) times Folliculitis daily. fluticasone Use 2 Sprays 16 g 11 Activ e propionate 50 in each 0 mcg/actuation nasal nostril daily. sprayIndications: Cough pantoprazole 40 mg EC Take 1 tablet 90 tablet 2 Active tabletIndications: by mouth 0 Gastroesophageal daily. reflux disease, esophagitis presence not specified NOVOLOG U-100 INSULIN USE IN INSULIN 90 mL 1 Active ASPART 100 unit/mL PUMP 0 solution LOSARTAN 100 mg TAKE 1 TABLET 90 tablet 0 Active tablet BY MOUTH EVERY 0 DAY LOVASTATIN 20 mg TAKE 1 TABLET 90 tablet 0 Active tablet BY MOUTH 0 EVERYDAY AT BEDTIME CLONAZEPAM 1 mg TAKE 1 TABLET 180 tablet 0 Active tabletIndications: BY MOUTH TWICE 0 Anxiety A DAY HYDROcodone-acetamino Take 1 tablet 120 tablet 0 Active phen 7.5-325 mg per by mouth every 0 tabletIndications: 6 (six) hours chronic pain as needed for Pain. 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 Abdominal pain 08/23/2016 Liver abscess 07/31/2016 Paraesophageal fluid collection 11/06/2015 Hyponatremia 11/02/2015 Hyperlipidemia 11/02/2015 Essential hypertension 11/02/2015 Normocytic anemia 11/02/2015 Thrombocytosis 11/02/2015 Pneumobilia 11/01/2015 Biliary tract cancer 11/01/2015 documented as of this encounter (statuses as of 02/11/2020) Resolved Problems Problem Noted Date Resolved Date Type 2 diabetes mellitus with hyperglycemia 11/02/2015 08/28/2016 documented as of this encounter (statuses as of 02/11/2020) Immunizations Name Administration Dates Next Due Influenza [...] Endocrinology Diabetes & Duc Lea MD Metabolism [address] [place] [address] [phone] Health Maintenance Due Date Last Done Comments [...] BOX Medicare A & B t 2 [id number] [place] L[place] [id number] documented as of this encounter
--- OUTSIDE RECORDS SUMMARY | 2020-04-11 13:36 | XMS REPORT | Summary of Care ---
:1955 Author Organization [facility] Address [address] [place] [address] Care Team Providers Name Role Phone MD Vikash Primary Care Provider Reason for Visit Reason Comments Refill Request Encounter Details Date Type Department Care Team Description 02/07/2020 Refill [facility] Family Medicine Ray Chao MD Refill Request - [address] [place] [address] [place] [address] [phone] Allergies Active Allergy Reactions Severity Noted Date Comments Metaxalone Hives, Rash 10/31/2015 Chest pain documented as of this encounter (statuses as of 02/10/2020) Medications Medication Sig Dispensed Refills Start End [...] type, Shortness of Dyspnea on exertion Breath. hflqzw-egkidlhs-ebmy Take 1 270 capsule 2 Active ase [...] by mouth 0 tabletIndications: every 6 (six) chronic pain hours as needed for Pain. Indications: chronic pain HYDROcodone-acetamin Take 1 tablet 120 tablet 0 01/28 Discontinued ophen 7.5-325 mg per by mouth 0 20 (Reorder) tabletIndications: every 6 (six) Other chronic pain hours as needed for Pain. 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 Abdominal pain 08/23/2016 Liver abscess 07/31/2016 Paraesophageal fluid collection 11/06/2015 Hyponatremia 11/02/2015 Hyperlipidemia 11/02/2015 Essential hypertension 11/02/2015 Normocytic anemia 11/02/2015 Thrombocytosis 11/02/2015 Pneumobilia 11/01/2015 Biliary tract cancer 11/01/2015 documented as of this encounter (statuses as of 02/10/2020) Resolved Problems Problem Noted Date Resolved Date Type 2 diabetes mellitus with hyperglycemia 11/02/2015 08/28/2016 documented as of this encounter (statuses as of 02/10/2020) Immunizations Name Administration Dates Next Due Influenza [...] Visit Endocrinology Diabetes & Duc Lea MD [facility] [address] [place] [address] [phone] Health Maintenance Due Date Last Done Comments [...] MEDICARE PART xxxxxxxxxxx 2011-Valeria [phone] [facility] Medicare A & B t 2 [id number] [place] [id number] documented as of this encounter
--- OUTSIDE RECORDS SUMMARY | 2020-04-11 13:36 | XMS REPORT | Summary of Care ---
:1955 Author Organization [facility] Address [address] [place] [address] Care Team Providers Name Role Phone MD Vikash Primary Care Provider Reason for Visit Reason Comments Refill Request Encounter Details Date Type Department Care Team Description 03/01/2020 Refill [facility] Family Medicine Ray Chao MD Refill Request - [address] [place] [address] [place] [address] [phone] Allergies Active Allergy Reactions Severity Noted Date Comments Metaxalone Hives, Rash 10/31/2015 Chest pain documented as of this encounter (statuses as of 03/02/2020) Medications Medication Sig Dispensed Refills Start End [...] type, Shortness of Dyspnea on exertion Breath. azapow-xrxdvygf-ghagk Take 1 capsule 270 capsule 2 Active [...] Active ASPART 100 unit/mL PUMP 0 solution CLONAZEPAM 1 mg TAKE 1 TABLET 180 [...] BY MOUTH THREE 0 TIMES A DAY LOSARTAN 100 mg TAKE 1 TABLET 90 tablet 0 Active tablet BY MOUTH EVERY 0 DAY LOVASTATIN 20 mg TAKE 1 TABLET 90 tablet 0 Active tablet BY MOUTH 0 EVERYDAY AT BEDTIME LOSARTAN 100 mg TAKE 1 TABLET 90 tablet 0 03/02/20 Discontinued tablet BY MOUTH EVERY 0 20 DAY LOVASTATIN 20 mg TAKE 1 TABLET 90 tablet 0 03/02/20 Discontinued tablet BY MOUTH 0 20 EVERYDAY AT BEDTIME documented as of this encounter (statuses as of 03/02/2020) Active Problems Problem Noted Date Anxiety 08/21/2018 Other chronic pain 03/23/2018 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 Abdominal pain 08/23/2016 Liver abscess 07/31/2016 Paraesophageal fluid collection 11/06/2015 Hyponatremia 11/02/2015 Hyperlipidemia 11/02/2015 Essential hypertension 11/02/2015 Normocytic anemia 11/02/2015 Thrombocytosis 11/02/2015 Pneumobilia 11/01/2015 Biliary tract cancer 11/01/2015 documented as of this encounter (statuses as of 03/02/2020) Resolved Problems Problem Noted Date Resolved Date Type 2 diabetes mellitus with hyperglycemia 11/02/2015 08/28/2016 documented as of this encounter (statuses as of 03/02/2020) Immunizations Name Administration Dates Next Due Influenza [...] Assigned at Date Recorded Not on file COVID-19 Exposure Response Date Recorded In the [...] Endocrinology Diabetes & Duc Lea MD Metabolism [address] [place] [address] [phone] Health Maintenance Due Date Last Done Comments HEPATITIS C (HCV) SCREEN 1955 PNEUMOCOCCAL 0-64 YEARS COMBINED 1962 SERIES (1 of 3 - PCV13) EYE EXAM 1966 COLON CANCER SCREENING ANNUAL 2006 FIT/FOBT COLON CANCER SCREENING FIT DNA 2006 EVERY 3 YEARS COLON CANCER SCREENING 2006 SIGMOIDOSCOPY EVERY 5 YEARS Zoster Recombinant Vaccine 2006 (SHINGRIX) (1 of [...] year history COLONOSCOPY 05/15/2023 05/15/2013 (Previously completed) Colorectal Cancer Screening 05/15/2023 DTaP,Tdap,and Td Vaccines (2 - Td) 02/24/2028 02/23/2018 documented as of this encounter Results Not on filedocumented in this encounter Insurance Payer Benefit Plan / Subscriber ID Effective Dates Phone Addre ss Type Group MEDICARE MEDICARE PART [id number] 2011-Valeria [phone] [address] Medicare A & B t 2 [id number] SKYLAR LACEY [phone] documented as of this encounter
--- OUTSIDE RECORDS SUMMARY | 2020-04-11 13:36 | XMS REPORT | Summary of Care ---
:1955 Author Organization [facility] Address [address] [place] [address] Care Team Providers Name Role Phone MD Vikash Primary Care Provider Reason for Visit Reason Comments Syncope Encounter Details Date Type Department Care Team Description 02/03/2020 Telemedicine Visit [facility] Ray Suh Diabe vesna mellitus associated with pancreatic disease (Primary Dx); Pediatric and MD Hyperlipidemia, unspecified hyperlipidem ia type Adult Primary [address], [address] [address] [place], [place] [phone] Allergies Active Allergy Reactions Severity Noted Date Comments Metaxalone Hives, Rash 10/31/2015 Chest pain documented as of this encounter (statuses as of 02/03/2020) Medications Medication Sig Dispensed Refills Start Date [...] Shortness of type, Dyspnea on Breath. 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 Abdominal pain 08/23/2016 Liver abscess 07/31/2016 Paraesophageal fluid collection 11/06/2015 Hyponatremia 11/02/2015 Hyperlipidemia 11/02/2015 Essential hypertension 11/02/2015 Normocytic anemia 11/02/2015 Thrombocytosis 11/02/2015 Pneumobilia 11/01/2015 Biliary tract cancer 11/01/2015 documented as of this encounter (statuses as of 02/03/2020) Resolved Problems Problem Noted Date Resolved Date Type 2 diabetes mellitus with hyperglycemia 11/02/2015 08/28/2016 documented as of this encounter (statuses as of 02/03/2020) Immunizations Name Administration Dates Next Due Influenza [...] encounter Progress Notes Ray Suh MD - 02/03/2020 2:15 PM CDT TELEHEALTH NOTE Verbal consent obtained from Patient: Rafia Patrick Sanya Sr. due to the COVID- 19 pandemic for telehealth services provided below. Communication with patient was conducted via Telephone due to patient unable to obtain video call option. Location of Patient: Home Location of Provider: Office Date of Service: 02/03/2020 Chief Complaint: had near syncopal spell HPI: Rafia Poncealfonso Segundo Sr. is a 64 year old male with syncopal episode, seen at [facility] Past Medical History: Diagnosis Date Cancer bile duct Chronic pain disorder COPD (chronic obstructive pulmonary disease) Diabetes mellitus HLD (hyperlipidemia) HTN (hypertension) Pancreatitis MEDICATIONS: Current Outpatient Medications Medication Sig Dispense Refill HYDROcodone-acetaminophen 7.5-325 mg per tablet Take 1 tablet by mouth every 6 (six) hours as needed for Pain. 120 tablet 0 CLONAZEPAM 1 mg tablet TAKE 1 TABLET BY MOUTH TWICE A DAY 180 tablet 0 LOSARTAN 100 mg tablet TAKE 1 TABLET BY MOUTH EVERY DAY 90 tablet 0 LOVASTATIN 20 mg tablet TAKE 1 TABLET BY MOUTH EVERYDAY AT BEDTIME 90 tablet 0 NOVOLOG U-100 INSULIN ASPART 100 unit/mL solution USE IN INSULIN PUMP 90 mL 1 pantoprazole 40 mg EC tablet Take 1 tablet by mouth daily. 90 tablet 2 fluticasone propionate 50 mcg/actuation nasal spray Use 2 Sprays in each nostril daily. 16 g 11 doxycycline hyclate 100 mg tablet Take 1 tablet by mouth 2 (two) times daily. 20 tablet 0 gabapentin 400 mg capsule TAKE 1 CAPSULE BY MOUTH THREE TIMES A DAY 270 capsule 1 CYCLOBENZAPRINE 10 mg tablet TAKE 1 TABLET BY MOUTH THREE TIMES A DAY NEEDED FOR MUSCLE SPASMS 90 tablet 1 losxtu-vzrevenj-qnvocam (CREON) 12,000-38,000 -60,000 unit capsule Take 1 [...] Kit Use as directed 1 Kit 0 No current facility-administered medications for this visit. ROS Negative TELEHEALTH EXAM Alert, no distress ASSESSMENT/ PLAN Rafia Segundo Sr. is a 64 year old male with PMH as above presenting with: syncope, DM . Needsf/u After visit summary (AVS ) documentation will be available through [employer] for this encounter. A total of 15 minutes was spent on the Telephone due to patient unable to obtain video call option. Ray Suh MD documented in this encounter Plan of Treatment Date Type Specialty Care Team Description 02/04/2020 Office Visit Endocrinology Diabetes & Lea, Duc rogel MD Metabolism [address] [place], [place] [id number] Health Maintenance Due Date Last Done Comments [...] filedocumented in this encounter Visit Diagnoses Diagnosis Diabetes mellitus associated with pancre atic disease - Primary Type II or unspecified type diabetes leslie litus with other specified manifestations, not stated as uncontrolled Hyperlipidemia, unspecified hyperlipidem ia type documented in this encounter Insurance Payer Benefit Plan / Subscriber ID Effective Dates Phone Addre ss Type Group MEDICARE MEDICARE PART xxxxxxxxxxx 2011-Valeria [phone] [address] Medicare A & B t 2 [id number] SKYLAR LACEY [phone] ([employer]) [place] [address] documented as of this encounter
--- OUTSIDE RECORDS SUMMARY | 2020-04-11 13:36 | XMS REPORT | Summary of Care ---
:1955 Author Organization [facility] Address [address] [place] [address] Care Team Providers Name Role Phone MD Vikash Primary Care Provider Reason for Visit Reason Comments Orders Encounter Details Date Type Department Care Team Description 02/10/2020 Telephone [facility] Family Medicine Ray Chao MD Orders - [address] [facility] [place] [address] [place] [address] [phone] Allergies Active Allergy Reactions Severity Noted Date Comments Metaxalone Hives, Rash 10/31/2015 Chest pain documented as of this encounter (statuses as of 02/10/2020) Medications Medication Sig Dispensed Refills Start Date [...] Shortness of type, Dyspnea on Breath. exertion [id number]-cvykemt Take 1 capsule 270 capsule 2 9 [...] HYDROcodone-acetaminoph Take 1 tablet 120 tablet 0 02/10/2020 Active en 7.5-325 mg per by mouth every tabletIndications: 6 (six) hours chronic pain as needed for Pain. Indications: chronic pain documented as of this encounter (statuses [...] Diabetes & Duc Lea MD Metabolism [address] [place] [address] Name Type Priority Associated Diagnoses Order S chedule PROFILE / HEMOGRAM LAB Routine Essential hypertension Expected: 02/10/2020, Exp ires: 02/09/2021 COMP. METABOLIC PANEL LAB Routine Diabetes mellitus E xpected: (49793) associated with pancreatic 0 02/10/2020, Expires: disease 02/09/2021 LIPID PANEL (26806)(TOTAL LAB Routine Hyperlipidemia, Expected: CHOLESTEROL, unspecified hyperlipidemia 0 02/10/2020, Expires: TRIGLYCERIDES, HDL) type 02/10/20 21 GLYCOSYLATED HEMOGLOBIN LAB Routine Diabetes mellitus Expected: (A1C) associated with pancreatic 0 02/10/2020, Expires: disease 02/09/2021 Health Maintenance Due Date Last Done Comments [...] as uncontrolled Hyperlipidemia, unspecified hyperlipidem ia type Essential hypertension Unspecified essential hypertension documented in this encounter Insurance Payer Benefit Plan / Subscriber ID Effective Dates Phone Addre ss Type Group MEDICARE MEDICARE PART xxxxxxxxxxx 2011-Valeria [phone] Medicare A & B t 2 [id number] [place] [id number] documented as of this encounter
--- OUTSIDE RECORDS SUMMARY | 2020-04-11 13:37 | XMS REPORT | Summary of Care ---
:1955 Author Organization [facility] Address [address] [place] [address] Care Team Providers Name Role Phone MD Vikash Primary Care Provider Reason for Visit Reason Comments Refill Request Encounter Details Date Type Department Care Team Description 03/27/2020 Refill [facility] Family Medicine Ray Chao MD Refill Request - [address] [place] [address] [place] [address] [phone] Allergies Active Allergy Reactions Severity Noted Date Comments Metaxalone Hives, Rash 10/31/2015 Chest pain documented as of this encounter (statuses as of 03/27/2020) Medications Medication Sig Dispensed Refills Start End [...] type, Shortness of Dyspnea on exertion Breath. qojyhi-bsridjiq-juymb Take 1 capsule 270 capsule 2 Active se (CREON) by mouth 3 9 12,000-38,000 -60,000 (three) times unit daily with capsuleIndications: meals. Other chronic pain doxycycline hyclate Take 1 tablet 20 tablet [...] BY MOUTH TWICE 0 Anxiety A DAY GABAPENTIN 400 mg TAKE 1 CAPSULE 270 capsule 1 Active capsule BY MOUTH THREE 0 TIMES A DAY LOSARTAN 100 mg TAKE 1 TABLET 90 tablet 0 Active tablet BY MOUTH EVERY 0 DAY LOVASTATIN 20 mg TAKE 1 TABLET 90 tablet 0 Active tablet BY MOUTH 0 EVERYDAY AT BEDTIME HYDROcodone-acetamino Take 1 tablet 120 tablet 0 Active phen 7.5-325 mg per by mouth every 0 tabletIndications: 6 (six) hours chronic pain as needed for Pain. Indications: chronic pain CYCLOBENZAPRINE 10 mg TAKE 1 TABLET 90 tablet 1 Active tabletIndications: BY MOUTH THREE 0 Chronic back pain, TIMES A DAY unspecified back NEEDED FOR location, unspecified MUSCLE SPASMS back pain laterality CYCLOBENZAPRINE 10 mg TAKE 1 TABLET 90 tablet 1 03/01 Discontinued tabletIndications: BY MOUTH THREE 0 20 Chronic back pain, TIMES A DAY unspecified back NEEDED FOR location, unspecified MUSCLE SPASMS back pain laterality documented as of this encounter (statuses as of 03/27/2020) Active Problems Problem Noted Date Anxiety 08/21/2018 Other chronic pain 03/23/2018 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] Assigned at Date Recorded Not on file documented as of this encounter Last Filed Vital Signs Not on filedocumented in this encounter Plan of Treatment Date Type Specialty Care Team Description 04/15/2020 Office Visit Endocrinology Diabetes & Duc Lea MD Metabolism [address] [place] [address] Health Maintenance Due Date Last [...] Diagnoses Diagnosis Chronic back pain, unspecified back loca tion, unspecified back pain laterality documented in this encounter Insurance Payer Benefit Plan / Subscriber ID Effective Dates Phone Addre ss Type Group MEDICARE MEDICARE PART [id number] 2011-Valeria [phone] [address] [facility] Medicare A & B t 2 [id number] [place] [phone] documented as of this encounter
--- OUTSIDE RECORDS SUMMARY | 2020-04-11 13:37 | XMS REPORT | Summary of Care ---
:1955 Author Organization [facility] Address [address] [place] [address] Care Team Providers Name Role Phone MD Vikash Primary Care Provider Reason for Visit Reason Comments Refill Request Encounter Details Date Type Department Care Team Description 03/11/2020 Refill [facility] Family Medicine Ray Chao MD Refill Request - [address] [place] [address] [place] [address] [phone] Allergies Active Allergy Reactions Severity Noted Date Comments Metaxalone Hives, Rash 10/31/2015 Chest pain documented as of this encounter (statuses as of 03/11/2020) Medications Medication Sig Dispensed Refills Start End [...] type, Shortness of Dyspnea on exertion Breath. pngsbg-yxzarlod-umml Take 1 270 capsule 2 Active ase (CREON) capsule by 9 12,000-38,000 mouth 3 -60,000 unit (three) times capsuleIndications: daily with Other chronic pain meals. CYCLOBENZAPRINE 10 TAKE 1 TABLET 90 tablet 1 Active mg BY MOUTH 0 tabletIndications: THREE TIMES A Chronic back pain, DAY NEEDED unspecified back FOR MUSCLE location, SPASMS unspecified back pain laterality doxycycline hyclate Take 1 [...] ASPART 100 INSULIN PUMP 0 unit/mL solution CLONAZEPAM 1 mg TAKE 1 TABLET 180 tablet 0 Active tabletIndications: BY MOUTH 0 Anxiety TWICE A DAY GABAPENTIN 400 mg TAKE 1 270 capsule 1 Active capsule CAPSULE BY 0 MOUTH THREE TIMES A DAY LOSARTAN 100 mg TAKE 1 TABLET 90 tablet 0 Active tablet BY MOUTH 0 EVERY DAY LOVASTATIN 20 mg TAKE 1 TABLET 90 tablet 0 Active tablet BY MOUTH 0 EVERYDAY AT BEDTIME HYDROcodone-acetamin Take 1 tablet 120 tablet 0 Active ophen 7.5-325 mg per by mouth 0 tabletIndications: every 6 (six) chronic pain hours as needed for Pain. Indications: chronic pain HYDROcodone-acetamin Take 1 tablet 120 tablet 0 02/28 Discontinued ophen 7.5-325 mg per by mouth 0 20 (Reorder) tabletIndications: every 6 (six) chronic pain hours as needed for Pain. Indications: chronic pain documented as of this encounter (statuses as of 03/11/2020) Active Problems Problem Noted Date Anxiety 08/21/2018 Other chronic pain 03/23/2018 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 Abdominal pain 08/23/2016 Liver abscess 07/31/2016 Paraesophageal fluid collection 11/06/2015 Hyponatremia 11/02/2015 Hyperlipidemia 11/02/2015 Essential hypertension 11/02/2015 Normocytic anemia 11/02/2015 Thrombocytosis 11/02/2015 Pneumobilia 11/01/2015 Biliary tract cancer 11/01/2015 documented as of this encounter (statuses as of 03/11/2020) Resolved Problems Problem Noted Date Resolved Date Type 2 diabetes mellitus with hyperglycemia 11/02/2015 08/28/2016 documented as of this encounter (statuses as of 03/11/2020) Immunizations Name Administration Dates Next Due Influenza [...] Signs Not on filedocumented in this encounter Miscellaneous Notes Telephone Encounter - Agnes Hassan MA - 03/11/2020 2:36 PM CDT Please review and sign if appropriate. Last Refilled: HYDROcodone-acetaminophen 7.5-325 mg per tablet 120 tablet 0 02/10/2020 Pharmacy: [facility] J[facility]Y: 02/03/2020 NOV: none documented in this encounter Plan of Treatment Date Type Specialty Care Team Description 04/15/2020 Office Visit Endocrinology Diabetes & Duc Lea MD Metabolism [address] [place] [address] [phone] Health Maintenance Due Date Last Done Comments [...] Addre ss Type Group MEDICARE MEDICARE PART [id number] 2011-Valeria [phone] [address] Medicare A & B t 2 [id number] [place] [id number] documented as of this encounter
--- OUTSIDE RECORDS SUMMARY | 2020-04-11 13:37 | XMS REPORT | Summary of Care ---
:1955 Author Organization [facility] Address [address] [place] [address] Care Team Providers Name Role Phone MD Vikash Primary Care Provider Reason for Visit Reason Comments Refill Request Encounter Details Date Type Department Care Team Description 04/09/2020 Refill [facility] Family Medicine Ray Chao MD Refill Request - [address] [place] [address] [place] [address] [phone] Allergies Active Allergy Reactions Severity Noted Date Comments Metaxalone Hives, Rash 10/31/2015 Chest pain documented as of this encounter (statuses as of 04/09/2020) Medications Medication Sig Dispensed Refills Start End [...] type, Shortness of Dyspnea on exertion Breath. [id number]-kkuzhyaa-emzg Take 1 270 capsule 2 Active ase (CREON) capsule by 9 12,000-38,000 mouth 3 -60,000 unit (three) times capsuleIndications: daily with Other chronic pain meals. doxycycline hyclate Take 1 tablet 20 tablet [...] BY 0 MOUTH THREE TIMES A DAY CYCLOBENZAPRINE 10 TAKE 1 TABLET 90 tablet 1 Active mg BY MOUTH 0 tabletIndications: THREE TIMES A Chronic back pain, DAY NEEDED unspecified back FOR MUSCLE location, SPASMS unspecified back pain laterality LOSARTAN 100 mg TAKE 1 TABLET 90 [...] HYDROcodone-acetamin Take 1 tablet 120 tablet 0 03/31 Discontinued ophen 7.5-325 mg per by mouth 0 20 (Reorder) tabletIndications: every 6 (six) chronic pain hours as needed for Pain. Indications: chronic pain documented as of this encounter (statuses as of 04/09/2020) Active Problems Problem Noted Date Anxiety 08/21/2018 Other chronic pain 03/23/2018 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 Abdominal pain 08/23/2016 Liver abscess 07/31/2016 Paraesophageal fluid collection 11/06/2015 Hyponatremia 11/02/2015 Hyperlipidemia 11/02/2015 Essential hypertension 11/02/2015 Normocytic anemia 11/02/2015 Thrombocytosis 11/02/2015 Pneumobilia 11/01/2015 Biliary tract cancer 11/01/2015 documented as of this encounter (statuses as of 04/09/2020) Resolved Problems Problem Noted Date Resolved Date Type 2 diabetes mellitus with hyperglycemia 11/02/2015 08/28/2016 documented as of this encounter (statuses as of 04/09/2020) Immunizations Name Administration Dates Next Due Influenza [...] this encounter Miscellaneous Notes Telephone Encounter - Sakshi Hurtado LVN - 04/09/2020 2:05 PM CDT 4 weeks ago (03/11/2020) HYDROcodone-acetaminophen 7.5-325 mg per tablet [facility]acy #[id number] - [place], [place] - [address] AT [facility] APPOINTMENT 02/03/2020 documented in this encounter Plan of Treatment Date Type Specialty Care Team Description 04/15/2020 Office Visit Endocrinology Diabetes & Venu, Duc rogel MD Metabolism [facility] [place], [place] [address] Health Maintenance Due Date Last Done Comments [...] Addre ss Type Group MEDICARE MEDICARE PART [id number] 2011-Valeria [phone] [address] Medicare A & B t 2 [id number] [place] [id number] documented as of this encounter
--- OUTSIDE RECORDS SUMMARY | 2020-04-11 13:37 | XMS REPORT | Summary of Care ---
:[address] [facility] Address [address] [place] [address] Care Team Providers Name Role Phone MD Vikash Primary Care Provider Reason for Visit Reason Comments Refill Request Encounter Details Date Type Department Care Team Description 04/07/2020 Refill [facility] Family Medicine Ray Chao MD Refill Request - [address] [place] [address] [place] [address] [phone] Allergies Active Allergy Reactions Severity Noted Date Comments Metaxalone Hives, Rash 10/31/2015 Chest pain documented as of this encounter (statuses as of 04/07/2020) Medications Medication Sig Dispensed Refills Start Date [...] Shortness of type, Dyspnea on Breath. exertion [id number]-vbwbrexv-ebgknsj Take 1 capsule 270 capsule 2 9 Active (CREON) 12,000-38,000 by mouth 3 -60,000 unit (three) times capsuleIndications: daily with Other chronic pain meals. doxycycline hyclate 100 Take 1 tablet 20 [...] 11/21/2019 Active ASPART 100 unit/mL PUMP solution CLONAZEPAM 1 mg TAKE 1 TABLET 180 tablet 0 12/30/2019 Active tabletIndications: BY MOUTH TWICE Anxiety A DAY GABAPENTIN 400 mg TAKE 1 CAPSULE 270 capsule 1 02/11/2020 Active capsule BY MOUTH THREE TIMES A DAY HYDROcodone-acetaminoph Take 1 tablet 120 tablet 0 03/11/2020 Active en 7.5-325 mg per by mouth every tabletIndications: 6 (six) hours chronic pain as needed for Pain. Indications: chronic pain CYCLOBENZAPRINE 10 mg TAKE 1 TABLET 90 tablet 1 03/27/2020 Active tabletIndications: BY MOUTH THREE Chronic back pain, TIMES A DAY unspecified back NEEDED FOR location, unspecified MUSCLE SPASMS back pain laterality LOSARTAN 100 mg tablet TAKE 1 TABLET 90 tablet 0 04/01/2020 Active BY MOUTH EVERY DAY LOVASTATIN 20 mg tablet TAKE 1 TABLET 90 tablet 0 04/01/2020 Active BY MOUTH EVERYDAY AT BEDTIME documented as of this encounter (statuses as of 04/07/2020) Active Problems Problem Noted Date Anxiety 08/21/2018 Other chronic pain 03/23/2018 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 Abdominal pain 08/23/2016 Liver abscess 07/31/2016 Paraesophageal fluid collection 11/06/2015 Hyponatremia 11/02/2015 Hyperlipidemia 11/02/2015 Essential hypertension 11/02/2015 Normocytic anemia 11/02/2015 Thrombocytosis 11/02/2015 Pneumobilia 11/01/2015 Biliary tract cancer 11/01/2015 documented as of this encounter (statuses as of 04/07/2020) Resolved Problems Problem Noted Date Resolved Date Type 2 diabetes mellitus with hyperglycemia 11/02/2015 08/28/2016 documented as of this encounter (statuses as of 04/07/2020) Immunizations Name Administration Dates Next Due Influenza [...] Telephone Encounter - Sakshi Hurtado LVN - 04/07/2020 3:29 PM CDTForm requesting chart notes for insulin pump has been received again, I will send in what chart notes I have for the last office visit once Dr Suh has signed them. 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 He verbalized understanding. elephone Encounter - Nathalia Phillips - 04/07/2020 2:00 PM CDTPt is requesting a refill on his insulin pump supplies, please contact patient in regards to request. documented in this encounter Plan of Treatment Date Type Specialty Care Team Description 04/15/2020 Office Visit Endocrinology Diabetes & Duc Lea MD Metabolism [address] [place] [address] [phone] Health Maintenance Due Date Last Done Comments [...] Addre ss Type Group MEDICARE MEDICARE PART [id number] 2011-Valeria [phone] [address] Medicare A & B t 2 [id number] [place] [address] documented as of this encounter
--- OUTSIDE RECORDS SUMMARY | 2020-04-11 13:37 | XMS REPORT | Summary of Care ---
:1955 Author Organization [facility] Address [address] [place] [address] Care Team Providers Name Role Phone MD Vikash Primary Care Provider Reason for Visit Reason Comments Refill Request Encounter Details Date Type Department Care Team Description 04/01/2020 Refill [facility] Family Medicine Ray Chao MD Refill Request - [address] [place] [address] [place] [address] [phone] Allergies Active Allergy Reactions Severity Noted Date Comments Metaxalone Hives, Rash 10/31/2015 Chest pain documented as of this encounter (statuses as of 04/01/2020) Medications Medication Sig Dispensed Refills Start End [...] type, Shortness of Dyspnea on exertion Breath. vqeuyn-pxpcevtb-qpykk Take 1 capsule 270 capsule 2 Active [...] BY MOUTH THREE 0 TIMES A DAY HYDROcodone-acetamino Take 1 tablet 120 [...] SPASMS back pain laterality LOSARTAN 100 mg TAKE 1 TABLET 90 tablet 0 Active tablet BY MOUTH EVERY 0 DAY LOVASTATIN 20 mg TAKE 1 TABLET 90 tablet 0 Active tablet BY MOUTH 0 EVERYDAY AT BEDTIME LOSARTAN 100 mg TAKE 1 TABLET 90 tablet 0 04/01/20 Discontinued tablet BY MOUTH EVERY 0 20 DAY LOVASTATIN 20 mg TAKE 1 TABLET 90 tablet 0 04/01/20 Discontinued tablet BY MOUTH 0 20 EVERYDAY AT BEDTIME documented as of this encounter (statuses as of 04/01/2020) Active Problems Problem Noted Date Anxiety 08/21/2018 Other chronic pain 03/23/2018 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] Endocrinology Diabetes & Duc Lea MD Metabolism [address] [place], [place] [id number] Health Maintenance Due Date Last Done Comments [...] Addre ss Type Group MEDICARE MEDICARE PART [id number] 2011-Valeria [phone] [address] Medicare A & B t 2 [id number] [place] [phone] documented as of this encounter
--- NOTE | 2020-04-11 14:52 | ER ---
Nurse's Notes [facility] Name: Rafia Segundo Age: 64 yrs Sex: Male : 1955 Arrival Date: 04/11/2020 Time: 13:34 Bed 17 Private MD: Diagnosis: Contusion of right wrist;Sprain of radiocarpal joint of right wrist Presentation: 04/11 13:38 Chief complaint: Patient states: Hit right hand on Monday. Pain to right wrist and ll1 hand has been getting worse each day since. Coronavirus screen: Client denies travel out of the [place] in the last 14 days. At this time, the client does not indicate any symptoms associated with coronavirus-19. Ebola Screen: Patient denies travel to an Ebola-affected area in the 21 days before illness onset. Initial Sepsis Screen: Does the patient meet any 2 criteria? HR > 90 bpm. Risk Assessment: Do you want to hurt yourself or someone else? Patient reports no desire to harm self or others. 13:38 Method Of Arrival: Ambulatory ll1 13:38 Acuity: ARBEN 4 ll1 Historical: - Allergies: 13:40 Skelaxin; ll1 - PMHx: 13:40 Back pain; Cancer of gall bladder duct; Chronic pain; Diabetes - IDDM; Hypertension; ll1 Insulin pump; Pancreatitis; RESTLESS LEG SYN; - Immunization history:: Last tetanus immunization: unknown, Flu vaccine is up to date. - Social history:: Smoking status: Patient reports the use of cigarette tobacco products, smokes one pack cigarettes per day. Patient/guardian denies using alcohol, street drugs. - Family history:: not pertinent. Screenin:49 Abuse screen: Denies threats or abuse. Denies injuries from another. Nutritional aj1 screening: No deficits noted. Tuberculosis screening: No symptoms or risk factors identified. 15:40 Fall Risk None identified. aj1 Assessment: 13:49 General: Appears in no apparent distress. uncomfortable, Behavior is calm, cooperative, aj1 appropriate for age. Pain: Complains of pain in right hand. Neuro: Level of Consciousness is awake, alert, obeys commands, Oriented to person, place, time, situation. Cardiovascular: Patient's skin is warm and dry. Respiratory: Airway is patent Respiratory effort is even, unlabored, Respiratory pattern is regular, symmetrical. GI: No signs and/or symptoms were reported involving the gastrointestinal system. : No signs and/or symptoms were reported regarding the genitourinary system. EENT: No signs and/or symptoms were reported regarding the EENT system. Derm: No signs and/or symptoms reported regarding the dermatologic system. Musculoskeletal: Range of motion: limited in right wrist. 14:26 Reassessment: Patient appears in no apparent distress at this time. No changes from aj1 previously documented assessment. Patient and/or family updated on plan of care and expected duration. Pain level reassessed. Patient is alert, oriented x 3, equal unlabored respirations, skin warm/dry/pink. 15:00 Reassessment: Discharge pending ER physician explaining test results to patient. aj1 Vital Signs: 13:38 BP 149 / 76; Pulse 96; Resp 18; Temp 99.1; Pulse Ox 95% ; Pain 8/10; ll1 ED Course: 13:34 Patient arrived in ED. ds1 13:40 Triage completed. ll1 13:41 Antoine Fragoso MD is Attending Physician. [facility] 13:41 Arm band placed on Patient placed in an exam room, on a stretcher. ll1 13:48 Julia Ferris, VIC is Primary Nurse. aj1 13:49 Patient has correct armband on for positive identification. Bed in low position. Call aj1 light in reach. 13:49 No provider procedures requiring assistance completed. aj1 14:25 Hand Right 3 View XRAY In Process Unspecified. EDMS 14:25 Wrist Right 3 View XRAY In Process Unspecified. EDFL 14:50 Kunal Rubin MD is Referral Physician. [facility] 14:58 Velcro wrist splint applied to right wrist. jp3 15:40 Patient did not have IV access during this emergency room visit. aj1 Administered Medications: 15:06 Drug: Motrin 600 mg Route: PO; Outcome: 14:51 Discharge ordered by . [facility] 15:40 Discharged to home ambulatory. aj1 15:40 Condition: good 15:40 Discharge instructions given to patient, Instructed on discharge instructions, follow up and referral plans. no drinking with medication, no driving heavy equipment, medication usage, Demonstrated understanding of instructions, follow-up care, medications, Prescriptions given X 3. 15:40 Patient left the ED. aj1 Signatures: Dispatcher [employer] EDFL Barrington, Julia, RN RN aj1 Antoine Fragoso MD MD cha Sanford, Demi ds1 Maynor Singletary jp3 Kirti Farrar RN RN ah Yordy Browne RN RN ll1
--- NOTE | 2020-04-11 14:52 | EDPHYS ---
Physician Documentation [facility] Name: Rafia Segundo Age: 64 yrs Sex: Male : 1955 Arrival Date: 04/11/2020 Time: 13:34 Bed 17 Private MD: VALERIY Physician Antoine Fragoso HPI: 04/11 14:40 This 64 yrs old Male presents to ER via Ambulatory with complaints of Hand carmela Pain. 14:40 The patient or guardian reports decreased range of motion, pain. The complaints affect carmela the right hand diffusely, dorsal aspect of right wrist and palmar aspect of right wrist. Context: The problem was sustained at home. Onset: The symptoms/episode began/occurred 5 day(s) ago. Modifying factors: The symptoms are alleviated by elevation, holding still, OTC meds, the symptoms are aggravated by movement, dependent position. Associated signs and symptoms: The patient has no apparent associated signs or symptoms. Severity of symptoms: At their worst the symptoms were moderate, in the emergency department the symptoms are unchanged. The patient has not experienced similar symptoms in the past. Historical: - Allergies: 13:40 Skelaxin; ll1 - PMHx: 13:40 Back pain; Cancer of gall bladder duct; Chronic pain; Diabetes - IDDM; Hypertension; ll1 Insulin pump; Pancreatitis; RESTLESS LEG SYN; - Immunization history:: Last tetanus immunization: unknown, Flu vaccine is up to date. - Social history:: Smoking status: Patient reports the use of cigarette tobacco products, smokes one pack cigarettes per day. Patient/guardian denies using alcohol, street drugs. - Family history:: not pertinent. ROS: 14:40 Constitutional: Negative for fever, chills, and weight loss, Eyes: Negative for injury, carmela pain, redness, and discharge, ENT: Negative for injury, pain, and discharge, Neck: Negative for injury, pain, and swelling, Cardiovascular: Negative for chest pain, palpitations, and edema, Respiratory: Negative for shortness of breath, cough, wheezing, and pleuritic chest pain, Abdomen/GI: Negative for abdominal pain, nausea, vomiting, diarrhea, and constipation, Back: Negative for injury and pain, : Negative for injury, bleeding, discharge, and swelling, Skin: Negative for injury, rash, and discoloration, Neuro: Negative for headache, weakness, numbness, tingling, and seizure. 14:40 MS/extremity: Positive for decreased range of motion, pain, swelling, tenderness, of the lateral aspect of left wrist and medial aspect of left wrist. Exam: 14:40 Constitutional: This is a well developed, well nourished patient who is awake, alert, carmela and in no acute distress. Head/Face: Normocephalic, atraumatic. Eyes: Pupils equal round and reactive to light, extra-ocular motions intact. Lids and lashes normal. Conjunctiva and sclera are non-icteric and not injected. Cornea within normal limits. Periorbital areas with no swelling, redness, or edema. ENT: Nares patent. No nasal discharge, no septal abnormalities noted. Tympanic membranes are normal and external auditory canals are clear. Oropharynx with no redness, swelling, or masses, exudates, or evidence of obstruction, uvula midline. Mucous membranes moist. Neck: Trachea midline, no thyromegaly or masses palpated, and no cervical lymphadenopathy. Supple, full range of motion without nuchal rigidity, or vertebral point tenderness. No Meningismus. Chest/axilla: Normal chest wall appearance and motion. Nontender with no deformity. No lesions are appreciated. Cardiovascular: Regular rate and rhythm with a normal S1 and S2. No gallops, murmurs, or rubs. Normal PMI, no JVD. No pulse deficits. Respiratory: Lungs have equal breath sounds bilaterally, clear to auscultation and percussion. No rales, rhonchi or wheezes noted. No increased work of breathing, no retractions or nasal flaring. Abdomen/GI: Soft, non-tender, with normal bowel sounds. No distension or tympany. No guarding or rebound. No evidence of tenderness throughout. Back: No spinal tenderness. No costovertebral tenderness. Full range of motion. Male : Normal genitalia with no discharge or lesions. Skin: Warm, dry with normal turgor. Normal color with no rashes, no lesions, and no evidence of cellulitis. Neuro: Awake and alert, GCS 15, oriented to person, place, time, and situation. Cranial nerves II-XII grossly intact. Motor strength 5/5 in all extremities. Sensory grossly intact. Cerebellar exam normal. Normal gait. Psych: Awake, alert, with orientation to person, place and time. Behavior, mood, and affect are within normal limits. 14:40 Musculoskeletal/extremity: Extremities: noted in the palmar aspect of right wrist: decreased ROM, pain. Vital Signs: 13:38 BP 149 / 76; Pulse 96; Resp 18; Temp 99.1; Pulse Ox 95% ; Pain 8/10; ll1 MDM: 13:42 Patient medically screened. [facility] 14:48 Differential diagnosis: closed fracture, contusion, abrasion. Data reviewed: vital carmela signs, nurses notes, radiologic studies, plain films. Data interpreted: equipment monitor phototypesetting: not applicable for this patient encounter. rate is 96 beats/min, rhythm is regular. Test interpretation: by ED physician or midlevel provider: plain radiologic studies. Counseling: I had a detailed discussion with the patient and/or guardian regarding: the historical points, exam findings, and any diagnostic results supporting the discharge/admit diagnosis, radiology results, the need for outpatient follow up, for definitive care, a orthopedic surgeon. 04/11 14:04 Order name: Hand Right 3 View XRAY [facility] 04/11 14:04 Order name: Wrist Right 3 View XRAY [facility] 04/11 14:39 Order name: Splint: wrist cock up; Complete Time: 14:58 [facility] Administered Medications: 15:06 Drug: Motrin 600 mg Route: PO; Disposition: 04/11/20 14:51 Discharged to Home. Impression: Contusion of right wrist, Sprain of radiocarpal joint of right wrist. - Condition is Stable. - Discharge Instructions: Wrist Pain, Wrist Splint, Wrist Splint, [id number], Wrist Pain, [id number]-lg-[id number], Wrist Sprain. - Prescriptions for Medrol (Isaac) 4 mg Oral Tablets, Dose Pack - take 1 tablet by ORAL route as directed - follow package instructions; 1 packet. Motrin IB 200 mg Oral Tablet - take 2 tablet by ORAL route every 6 hours As needed as needed with food; 30 tablet. Tylenol- Codeine #3 300-30 mg Oral Tablet - take 2 tablets by ORAL route every 6 hours As needed; 24 tablet. - Medication Reconciliation Form, Thank You Letter, Antibiotic Education, Prescription Opioid Use form. - Follow up: Private Physician; When: 2 - 3 days; Reason: Recheck today's complaints, Continuance of care, Re-evaluation by your physician. Follow up: Kunal Rubin MD; When: 2 - 3 days; Reason: Recheck today's complaints, Re-evaluation by your physician. - Problem is new. - Symptoms have improved. Signatures: Dispatcher [employer] EDJulia Badillo RN RN aj1 Antoine Fragoso MD MD cha Harris, Amy, RN RN Yordy Browne RN RN ll1 Corrections: (The following items were deleted from the chart) 14:54 14:51 04/11/2020 14:51 Discharged to Home. Impression: Contusion of right wrist. [facility] Condition is Stable. Forms are Medication Reconciliation Form, Thank You Letter, Antibiotic Education, Prescription Opioid Use. Follow up: Private Physician; When: 2 - 3 days; Reason: Recheck today's complaints, Continuance of care, Re-evaluation by your physician. Follow up: Kunal Rubin; When: 2 - 3 days; Reason: Recheck today's complaints, Re-evaluation by your physician. Problem is new. Symptoms have improved. [facility] 14:58 14:39 Ice pack ordered. [facility] jp3 15:40 14:54 04/11/2020 14:51 Discharged to Home. Impression: Contusion of right wrist; Sprain aj1 of radiocarpal joint of right wrist. Condition is Stable. Discharge Instructions: Wrist Pain, Wrist Splint, Wrist Splint, [id number], Wrist Pain, [id number], Wrist Sprain. Prescriptions for Medrol (Isaac) 4 mg Oral Tablets, Dose Pack - take 1 tablet by ORAL route as directed - follow package instructions; 1 packet, Motrin IB 200 mg Oral Tablet - take 2 tablet by ORAL route every 6 hours As needed as needed with food; 30 tablet, Tylenol-Codeine #3 300-30 mg Oral Tablet - take 2 tablets by ORAL route every 6 hours As needed; 24 tablet. and Forms are Medication Reconciliation Form, Thank You Letter, Antibiotic Education, Prescription Opioid Use. Follow up: Private Physician; When: 2 - 3 days; Reason: Recheck today's complaints, Continuance of care, Re-evaluation by your physician. Follow up: Kunal Rubin; When: 2 - 3 days; Reason: Recheck today's complaints, Re-evaluation by your physician. Problem is new. Symptoms have improved. carmela
[2020-04-11] MEDS ORDERED: IBUPROFEN 200 MG TAB PO ONE (15:13)
[2020-04-11] MEDS ORDERED: IBUPROFEN 400 MG TAB ONE (15:14)
--- NOTE | 2020-04-11 15:14 | RAD REPORT ---
EXAM DESCRIPTION: RAD - Hand Right 3 View - 04/11/2020 2:25 pm CLINICAL HISTORY: PAIN COMPARISON: No comparisonsNone. FINDINGS: No fracture is identified. There is no dislocation or periosteal reaction noted. Mild IP joint degenerative changes are present. No erosive or destructive component. Mild degenerative change at the trapezial first metacarpal articulation. No air or foreign body in the soft tissues. IMPRESSION: Negative right hand examination for acute or suspicious finding.
--- NOTE | 2020-04-11 15:15 | RAD REPORT ---
EXAM DESCRIPTION: RAD - Wrist Right 3 View - 04/11/2020 2:25 pm CLINICAL HISTORY: PAIN, no trauma history COMPARISON: No comparisons FINDINGS: No fracture is identified. There is no dislocation or periosteal reaction noted. Mild dege nerative change at the trapezial first metacarpal articulation. Arterial tree calcifications are pres ent. No suspicious soft tissue calcification or mass. No air or foreign body. IMPRESSION: Negative right wrist examination for acute or suspicious finding.
[2020-04-11 15:46] VITALS: BP 149/76; TEMP 99.1; O2SAT 95
== END 2020-04-11 15:40 | disposition home or self-care (01) ==
LOC: ER 13:33
DX: S63.521A Sprain of radiocarpal joint of right wrist, initial encounter (principal); I10 Essential (primary) hypertension; E11.9 Type 2 diabetes mellitus without complications; Z96.41 Presence of insulin pump (external) (internal); Z88.8 Allergy status to other drugs, medicaments and biological substances
CPT/HCPCS: 99284

== ENCOUNTER 2020-12-06 16:56 | Observation (INO) | payer OTHER ==
--- OUTSIDE RECORDS SUMMARY | 2020-12-06 16:58 | XMS REPORT | Continuity of Care Document ---
:1955 Author Organization [facility] t Address [facility] [place] [address] Care Team Providers Name Role Phone Doctor Unassigned, Name Attending Clinician Unavailable Jonnie BUSH Attending Clinician Essence Toro Main Attending Clinician Unavailable Problems This patient has no known problems. Allergies, Adverse Reactions, Alerts This patient has no known allergies or adverse reactions. Medications This patient has no known medications. Procedures This patient has no known procedures. Encounters Start End Encounter Admission Attending Care Care Encounter Source Date/Time Date/Time Type Type Clinicians Facility Department ID 2020-11-27 2020-11-27 Patient Doctor NATA [id number] 00:00:00 00:00:00 Secure Msg Unassigned, DAY [id number] [place] [facility] [id number] 2020-11-26 2020-11-26 [facility] [id number] 15:00:00 23:59:00 Encounter Jovanni Sanchez [id number] [place] [id number] [place] [id number] 2020-11-26 2020-11-26 Baggage Handler Deja Toro [facility] [id number] 15:08:01 15:23:01 Visit Lab Jacques Sanchez [id number] [place] [id number] [facility] [id number] [facility] [address] Results This patient has no known results.
[2020-12-06 17:36] LABS: Absolute Lymphocytes (CBC) 1.6 K/uL (0.7-4.9); Basophils % 1.2 % (0-1.3); Hematocrit 39.7 % (39.6-49.0); Lymphocytes % 19.3 % (15.3-44.8); MPV 10.2 fL (7.6-11.3); RBC Red Blood Cell Count 4.37 M/uL (4.33-5.43)
[2020-12-06] MEDS ORDERED: ASPIRIN 81 MG CHEWABLE TABLET ONE (17:41)
[2020-12-06] MEDS ORDERED: NITROGLYCERIN 0.4 MG/TAB SL ONE (17:41)
[2020-12-06] MEDS ORDERED: NA CHLORIDE 0.9% 1,000 ML ONE (17:42)
--- NOTE | 2020-12-06 17:45 | RAD REPORT ---
EXAM DESCRIPTION: [place] Single View12/06/2020 5:28 pm CLINICAL HISTORY: Chest pain COMPARISON: 2018 FINDINGS: The lungs appear clear of acute infiltrate. The heart is normal size IMPRESSION: No acute abnormalities displayed
[2020-12-06 17:48] LABS: Protime INR 1.06
[2020-12-06 18:12] LABS: ALT/SGPT 36 U/L (12-78); AST/SGOT 23 U/L (15-37); Albumin 3.8 g/dL (3.4-5.0); Alkaline Phosphatase 110 U/L (45-117); BUN Blood Urea Nitrogen 11 mg/dL (7-18); Bicarbonate 27 mmol/L (21-32); Bilirubin Direct 0.2 mg/dL (0-0.2); Bilirubin Total 0.5 mg/dL (0.2-1.0); Glucose Level 182 mg/dL (74-106); Lipase 14 U/L (73-393); NT PRO-BNP 58 pg/mL (<125); Potassium 3.9 mmol/L (3.5-5.1); Protein, Total 7.2 g/dL (6.4-8.2); Sodium Level 139 mmol/L (136-145); Troponin (Emerg Dept Use Only) < 0.02 ng/mL (0.0-0.045)
--- NOTE | 2020-12-06 19:52 | EDPHYS ---
Physician Documentation [facility] Name: Rafia Segundo Age: 65 yrs Sex: Male : 1955 Arrival Date: 12/06/2020 Time: 16:58 Bed 13 Private MD: ED Physician Antoine Fragoso HPI: 12/06 17:10 This 65 yrs old Male presents to ER via EMS with complaints of Chest cp Tightness. 17:10 The patient or guardian reports chest pain that is located primarily in the anterior cp chest wall, right. 17:10 Onset: 1 hour(s) ago. The pain does not radiate. The chest pain is described as cp tightness. Duration: The patient or guardian reports a single episode, that is still ongoing, and unchanged. Severity of pain: in the emergency department the pain is a 5 / 10. Historical: - Allergies: 17:05 Skelaxin; ss - PMHx: 17:05 Back pain; Cancer of gall bladder duct; Chronic pain; Diabetes - IDDM; Hypertension; ss Insulin pump; Pancreatitis; RESTLESS LEG SYN; Pancreatic CA; neuropathy; COPD; - Immunization history:: Adult Immunizations up to date. - Social history:: Smoking status: Patient reports the use of cigarette tobacco products, smokes one pack cigarettes per day. ROS: 17:15 Constitutional: Negative for body aches, chills, fever, poor PO intake. cp 17:15 Eyes: Negative for injury, pain, redness, and discharge. cp 17:15 ENT: Negative for ear pain, sore throat, difficulty swallowing, difficulty handling secretions. 17:15 Cardiovascular: Positive for chest pain, Negative for edema, palpitations. 17:15 Respiratory: Negative for cough, shortness of breath, wheezing. 17:15 Abdomen/GI: Negative for abdominal pain, nausea, vomiting, and diarrhea. 17:15 Back: Negative for radiated pain. 17:15 Neuro: Negative for altered mental status, headache, syncope, weakness. 17:15 All other systems are negative. Exam: 17:07 ECG was reviewed by the Attending Physician. cp 17:20 Constitutional: The patient appears in no acute distress, alert, awake, cp non-diaphoretic, non-toxic, well developed, well nourished. 17:20 Head/Face: Normocephalic, atraumatic. cp 17:20 Eyes: Periorbital structures: appear normal, Conjunctiva: normal, no exudate, no injection, Sclera: no appreciated abnormality, Lids and lashes: appear normal, bilaterally. 17:20 ENT: External ear(s): are unremarkable, Nose: is normal, Mouth: Lips: moist, Oral mucosa: pink and intact, moist, Posterior pharynx: Airway: no evidence of obstruction, patent. 17:20 Neck: ROM/movement: is normal, is supple, without pain, no range of motions limitations. 17:20 Chest/axilla: Inspection: normal, Palpation: is normal, no crepitus, no tenderness. 17:20 Cardiovascular: Rate: normal, Rhythm: regular, Edema: is not appreciated, JVD: is not appreciated. 17:20 Respiratory: the patient does not display signs of respiratory distress, Respirations: normal, no use of accessory muscles, no retractions, labored breathing, is not present, Breath sounds: are clear throughout, no decreased breath sounds. 17:20 Abdomen/GI: Inspection: abdomen appears normal, Palpation: abdomen is soft and non-tender, in all quadrants, rebound tenderness, is not appreciated, voluntary guarding, is not appreciated, involuntary guarding, is not appreciated. 17:20 Back: pain, is absent, ROM is normal. 17:20 Neuro: Orientation: to person, place \T\ time. Mentation: is normal, Motor: moves all fours, strength is normal, Sensation: is normal. Vital Signs: 17:02 BP 150 / 77; Pulse 70; Resp 18; Temp 97.7(TE); Pulse Ox 100% on R/A; Weight 78.02 kg; ss Height 5 ft. 9 in. (175.26 cm); Pain 5/10; 17:15 BP 141 / 72; Pulse 69; Resp 16; Pulse Ox 98% on R/A; vg1 17:32 BP 140 / 73; Pulse 68; vg1 17:37 BP 120 / 72; Pulse 77; Pain 3/10; vg1 18:00 BP 124 / 74; Pulse 66; Resp 14; Pulse Ox 99% on R/A; vg1 19:00 BP 124 / 71; Pulse 72; Resp 16; Pulse Ox 100% on R/A; vg1 20:00 BP 133 / 66; Pulse 70; Resp 16; Pulse Ox 100% on R/A; vg1 21:00 BP 149 / 78; Pulse 70; Resp 14; Pulse Ox 98% on R/A; vg1 22:00 BP 151 / 71; Pulse 72; Resp 13; Pulse Ox 99% on R/A; jb4 23:46 BP 165 / 84; Pulse 73; Resp 16 S; Pulse Ox 97% on R/A; ad5 12/07 00:25 BP 136 / 61; Pulse 86; Resp 18; Pulse Ox 95% on R/A; jb4 12/06 17:02 Body Mass Index 25.40 (78.02 kg, 175.26 cm) ss 12/06 17:37 vitals taken after pt was given Nitroglycerin 0.4 mg sublingual x1 vg1 MDM: 17:00 Patient medically screened. carmela 18:00 Differential diagnosis: abnormal EKG, acute myocardial infarction, acute pericarditis, cp chest wall pain, pleurisy, pneumonia, pneumothorax, pulmonary embolus, stable angina, thoracic aortic disection, unstable angina. 19:50 The patient was given aspirin in the Emergency Department. cp 19:50 Data reviewed: vital signs, nurses notes, lab test result(s), EKG, radiologic studies, cp plain films. Test interpretation: by ED physician or midlevel provider: ECG, plain radiologic studies. Counseling: I had a detailed discussion with the patient and/or guardian regarding: the historical points, exam findings, and any diagnostic results supporting the discharge/admit diagnosis, lab results, radiology results, the need for further work-up and treatment in the hospital. Response to treatment: the patient's symptoms have markedly improved after treatment. 12/06 17:08 Order name: Basic Metabolic Panel cp 12/06 17:08 Order name: CBC with Diff cp 12/06 17:08 Order name: LFT's cp 12/06 17:08 Order name: Magnesium cp 12/06 17:08 Order name: NT PRO-BNP cp 12/06 17:08 Order name: PT-INR; Complete Time: 18:12 cp 12/06 17:08 Order name: Troponin (emerg Dept Use Only); Complete Time: 18:49 cp 12/06 17:08 Order name: Lipase; Complete Time: 18:49 cp 12/06 17:08 Order name: Basic Metabolic Panel; Complete Time: 18:49 EDMS 12/06 17:08 Order name: CBC with Automated Diff; Complete Time: 18:12 EDMS /09 18:12 Interpretation: Normal except: HGB 13.2; RDW 15.4. cp 05/09 17:08 Order name: Liver (Hepatic) Function; Complete Time: 18:49 EDMS / 17:08 Order name: Magnesium; Complete Time: 18:49 EDMS / 17:08 Order name: NT PRO-BNP; Complete Time: 18:49 EDMS /09 17:08 Order name: XRAY Chest (1 view); Complete Time: 18:12 cp 05/ 17:08 Order name: EKG; Complete Time: 17:08 cp / 17:08 Order name: Cardiac monitoring; Complete Time: 17:19 cp / 17:08 Order name: EKG - Nurse/Tech; Complete Time: 17:19 cp / 17:08 Order name: IV Saline Lock; Complete Time: 17:19 cp / 17:08 Order name: Labs collected and sent; Complete Time: 17:19 cp / 17:08 Order name: O2 Per Protocol; Complete Time: 17:19 cp / 17:08 Order name: O2 Sat Monitoring; Complete Time: 17:19 cp /09 18:54 Order name: SARS-COV-2 RT PCR EDMS 12/06 22:14 Order name: CONS Physician Consult EDMS EC:07 Rate is 69 beats/min. Rhythm is regular. AR interval is normal. QRS interval is normal. cp QT interval is normal. T waves are Inverted in lead aVR. Interpreted by me. Reviewed by me. Administered Medications: 17:29 Drug: Aspirin Chewable Tablet 324 mg Route: PO; vg1 21:57 Follow up: Response: No adverse reaction vg1 23:48 Follow up: Response: No adverse reaction ad5 17:30 Drug: NS 0.9% 500 ml Route: IV; Rate: bolus; Site: right wrist; vg1 18:03 Follow up: IV Status: Completed infusion; IV Intake: 500ml vg1 23:47 Follow up: IV Status: Completed infusion ad5 17:32 Drug: Nitroglycerin 0.4 mg Route: Sublingual; vg1 22:07 Follow up: Response: No adverse reaction vg1 23:48 Follow up: Response: No adverse reaction ad5 18:03 Drug: NS 0.9% 500 ml Route: IV; Rate: 100 ml/hr; Site: right wrist; vg1 23:47 Follow up: IV Status: Completed infusion ad5 Disposition: 12/07 09:52 Co-signature as Attending Physician, Antoine Fragoso MD I agree with the assessment and carmela plan of care. Disposition: 12/06/20 19:52 Hospitalization ordered by Keagan Ferris for Observation. Preliminary diagnosis is Chest pain, unspecified. - Bed requested for Telemetry/MedSurg (observation). - Status is Observation. jb4 - Condition is Stable. - Problem is new. - Symptoms have improved. Signatures: Dispatcher [employer] [facility] Antoine Fragoso MD MD cha Ballard, Brenda, RN RN Kimberley Mackey, RN RN Antoine Yu PA PA cp Bryson, James RN VIC jb4 Skylar Concepcion RN RN vg1 Ramo Martínez ad5 Corrections: (The following items were deleted from the chart) 12/06 18:12 17:08 CORONAVIRUS+MR.LAB.BRZ ordered. [facility] 23:06 19:52 Hospitalization Ordered by Keagan CHENG for Observation. Preliminary diagnosis bb is Chest pain, unspecified. Bed requested for Telemetry/MedSurg (observation). Status is Observation. Condition is Stable. Problem is new. Symptoms have improved. 12/07 00:27 12/06 23:06 12/06/2020 19:52 Hospitalization Ordered by Keagan CHENG for jb4 Observation. Preliminary diagnosis is Chest pain, unspecified. Bed requested for Telemetry/MedSurg (observation). Status is Observation. Condition is Stable. Problem is new. Symptoms have improved. bb
--- NOTE | 2020-12-06 19:52 | ER ---
Nurse's Notes [facility] Name: Rafia Segundo Age: 65 yrs Sex: Male : 1955 Arrival Date: 12/06/2020 Time: 16:58 Bed 13 Private MD: Diagnosis: Chest pain, unspecified Presentation: 12/06 17:02 Chief complaint: EMS states: R sided chest pain that radiated to R shoulder that began ss at 1730 today. PT also c/o dizziness with repositioning. Coronavirus screen: Client denies travel out of the [place] in the last 14 days. Ebola Screen: Patient denies exposure to infectious person. Patient denies travel to an Ebola-affected area in the 21 days before illness onset. Initial Sepsis Screen: Does the patient meet any 2 criteria? No. Patient's initial sepsis screen is negative. Does the patient have a suspected source of infection? No. Patient's initial sepsis screen is negative. Risk Assessment: Do you want to hurt yourself or someone else? Patient reports no desire to harm self or others. Onset of symptoms was December 06, 2020. 17:02 Method Of Arrival: EMS: [facility] ss 17:02 Acuity: ARBEN 2 ss Historical: - Allergies: 17:05 Skelaxin; ss - PMHx: 17:05 Back pain; Cancer of gall bladder duct; Chronic pain; Diabetes - IDDM; Hypertension; ss Insulin pump; Pancreatitis; RESTLESS LEG SYN; Pancreatic CA; neuropathy; COPD; - Immunization history:: Adult Immunizations up to date. - Social history:: Smoking status: Patient reports the use of cigarette tobacco products, smokes one pack cigarettes per day. Screenin:04 Abuse screen: Denies threats or abuse. Nutritional screening: No deficits noted. vg1 Tuberculosis screening: No symptoms or risk factors identified. Fall Risk No fall in past 12 months (0 pts). No secondary diagnosis (0 pts). IV access (20 points). Ambulatory Aid- None/Bed Rest/Nurse Assist (0 pts). Gait- Normal/Bed Rest/Wheelchair (0 pts) Mental Status- Oriented to own ability (0 pts). Total Antoine Fall Scale indicates No Risk (0-24 pts). Assessment: 17:03 General: Appears in no apparent distress. uncomfortable, Behavior is calm, cooperative. vg1 Pain: Complains of pain in anterior aspect of right upper chest Pain radiates to right arm Pain currently is 10 out of 10 on a pain scale. Quality of pain is described as pressure. Neuro: Level of Consciousness is awake, alert, obeys commands, Oriented to person, place, time, situation, Reports dizziness. Cardiovascular: Patient's skin is warm and dry. Respiratory: Airway is patent Respiratory effort is even, unlabored. GI: No signs and/or symptoms were reported involving the gastrointestinal system. : No signs and/or symptoms were reported regarding the genitourinary system. EENT: No signs and/or symptoms were reported regarding the EENT system. Derm: Skin is intact, Skin is pink, warm \T\ dry. Musculoskeletal: Circulation, motion, and sensation intact. 17:03 Reassessment: Pt has an insulin pump on the Left lower ABD. vg1 17:44 Reassessment: Patient appears in no apparent distress at this time. Patient and/or vg1 family updated on plan of care and expected duration. Pain level reassessed. Patient is alert, oriented x 3, equal unlabored respirations, skin warm/dry/pink. Pt stated 'my eyes feel weird, they're a little blurry'. Provider notified. 19:34 Reassessment: Patient appears in no apparent distress at this time. Patient and/or vg1 family updated on plan of care and expected duration. Pain level reassessed. Patient is alert, oriented x 3, equal unlabored respirations, skin warm/dry/pink. Pt rated pain 3/10. 21:15 Reassessment: Patient appears in no apparent distress at this time. Patient and/or vg1 family updated on plan of care and expected duration. Pain level reassessed. Patient is alert, oriented x 3, equal unlabored respirations, skin warm/dry/pink. 22:00 Reassessment: Patient appears in no apparent distress at this time. Patient and/or jb4 family updated on plan of care and expected duration. Pain level reassessed. Patient is alert, oriented x 3, equal unlabored respirations, skin warm/dry/pink. 23:46 Reassessment: Patient appears in no apparent distress at this time. Patient and/or ad5 family updated on plan of care and expected duration. Pain level reassessed. Patient is alert, oriented x 3, equal unlabored respirations, skin warm/dry/pink. Received care of pt at this time. Pt resting comfortably in stretcher with family at bedside. VSS. Resp with ease. Pt given warm blanket per request, denies other needs. Pt report to receiving RN on floor at this time, questions/concerns addressed. 12/07 00:25 Reassessment: Patient appears in no apparent distress at this time. Patient and/or jb4 family updated on plan of care and expected duration. Pain level reassessed. Patient is alert, oriented x 3, equal unlabored respirations, skin warm/dry/pink. Vital Signs: 12/06 17:02 BP 150 / 77; Pulse 70; Resp 18; Temp 97.7(TE); Pulse Ox 100% on R/A; Weight 78.02 kg; ss Height 5 ft. 9 in. (175.26 cm); Pain 5/10; 17:15 BP 141 / 72; Pulse 69; Resp 16; Pulse Ox 98% on R/A; vg1 17:32 BP 140 / 73; Pulse 68; vg1 17:37 BP 120 / 72; Pulse 77; Pain 3/10; vg1 18:00 BP 124 / 74; Pulse 66; Resp 14; Pulse Ox 99% on R/A; vg1 19:00 BP 124 / 71; Pulse 72; Resp 16; Pulse Ox 100% on R/A; vg1 20:00 BP 133 / 66; Pulse 70; Resp 16; Pulse Ox 100% on R/A; vg1 21:00 BP 149 / 78; Pulse 70; Resp 14; Pulse Ox 98% on R/A; vg1 22:00 BP 151 / 71; Pulse 72; Resp 13; Pulse Ox 99% on R/A; jb4 23:46 BP 165 / 84; Pulse 73; Resp 16 S; Pulse Ox 97% on R/A; ad5 12/07 00:25 BP 136 / 61; Pulse 86; Resp 18; Pulse Ox 95% on R/A; jb4 12/06 17:02 Body Mass Index 25.40 (78.02 kg, 175.26 cm) ss 12/06 17:37 vitals taken after pt was given Nitroglycerin 0.4 mg sublingual x1 vg1 ED Course: 16:58 Patient arrived in ED. ds1 16:59 Antoine Carty PA is PHCP. cp 16:59 Antoine Fragoso MD is Attending Physician. cp 17:03 Skylar Concepcion, RN is Primary Nurse. vg1 17:04 Triage completed. ss 17:05 Patient has correct armband on for positive identification. Placed in gown. Bed in low vg1 position. Call light in reach. Side rails up X 1. 17:05 Arm band placed on right wrist. ss 17:05 packaging designer on. Pulse ox on. NIBP on. vg1 17:05 Patient maintains SpO2 saturation greater than 95% on room air. vg1 17:14 Initial lab(s) drawn, by me, sent to lab. Inserted saline lock: 20 gauge in right vg1 wrist, using aseptic technique. Blood collected. 17:28 XRAY Chest (1 view) In Process Unspecified. EDMS 17:43 COVID swab sent to lab. vg1 19:50 Keagan Ferris PA is Hospitalizing Provider. cp 22:06 Report given to VIC Keenan. vg1 22:08 Primary Nurse role handed off by Skylar Concepcion RN jb4 22:08 Ángel Davis, RN is Primary Nurse. jb4 23:34 No provider procedures requiring assistance completed. Patient admitted, IV remains in ad5 place. Administered Medications: 17:29 Drug: Aspirin Chewable Tablet 324 mg Route: PO; vg1 21:57 Follow up: Response: No adverse reaction vg1 23:48 Follow up: Response: No adverse reaction ad5 17:30 Drug: NS 0.9% 500 ml Route: IV; Rate: bolus; Site: right wrist; vg1 18:03 Follow up: IV Status: Completed infusion; IV Intake: 500ml vg1 23:47 Follow up: IV Status: Completed infusion ad5 17:32 Drug: Nitroglycerin 0.4 mg Route: Sublingual; vg1 22:07 Follow up: Response: No adverse reaction vg1 23:48 Follow up: Response: No adverse reaction ad5 18:03 Drug: NS 0.9% 500 ml Route: IV; Rate: 100 ml/hr; Site: right wrist; vg1 23:47 Follow up: IV Status: Completed infusion ad5 Intake: 18:03 IV: 500ml; Total: 500ml. vg1 Outcome: 19:52 Decision to Hospitalize by Provider. cp 23:45 Admitted to Med/surg accompanied by nurse, via stretcher, Report called to receiving ad5 RN on floor 23:45 Condition: stable 23:45 Instructed on the need for admit. 12/07 00:27 Patient left the ED. jb4 Signatures: Dispatcher [employer] VALERIYWY Tianna Mccullough Shelby, RN RN Antoine Yu PA PA cp Bryson, James RN RN jb4 Skylar Concepcion RN RN vg1 Ramo Martínez ad5
--- NOTE | 2020-12-06 23:54 | P.HP ---
Certification for Inpatient Patient admitted to: Observation With expected LOS: <2 Midnights Patient will require the following post-hospital care: None Practitioner: I am a practitioner with admitting privileges, knowledge of patient current condition, hospital course, and medical plan of care. Services: Services provided to patient in accordance with Admission requirements found in Title 42 Section 412.3 of the Code of Federal Regulations Patient History Date of Service: 12/06/20 Primary Care Provider: Vikash Reason for admission: chest pain History of Present Illness: Mr. 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 He says the pain radiates down both arms. He feels lightheaded and feels like the room is spinning with these episodes. Today the episode began while he was sitting down. Symptoms relieved with ASA and NTG. Son reports increased weakness. Denies nausea, vomiting, abdominal pain. Smokes 1.5 ppd. Allergies metaxalone [From Skelaxin] Allergy (Mild, Verified 01/26/20 00:36) Rash Home Medications: Cyclobenzaprine [Flexeril*] 10 mg PO TID PRN 02/18/19 Gabapentin 400 mg PO TID 02/18/19 Hydrocodone/Acetaminophen [Portis 7.5-325 Tablet] 1 each PO Q6H PRN 02/18/19 Losartan Potassium 100 mg PO DAILY 02/18/19 Lovastatin 20 mg PO BEDTIME 02/18/19 Pantoprazole Sodium [Protonix] 40 mg PO DAILY 02/18/19 clonazePAM [Klonopin*] 1 mg PO BID 02/18/19 Lipase/Protease/Amylase [Azalia Yee 12,000 Units Capsule] 1 each PO TIDWM #90 capsule. 02/20/19 Novolog Insulin Pump See Protocol SQ SEECOM 01/26/20 tadalafiL [Tadalafil] 1 tab PO DAILY PRN 01/26/20 - Past Medical/Surgical History Diabetic: Yes -: chronic pain -: Diabetes -: HTN -: pancreatitis -: restless leg syndrome -: cancer of the lip -: pancreas cancer -: whipple procedure -: bilateral shoulder surgery -: knee and back surgery - Family History Father -: Heart disease, Diabetes Mother -: Diabetes - Social History Smoking Status: Heavy Tobacco smoker (>10 cigarettes/day) Smoking therapy provided: Yes Patient receptive to therapy: No Alcohol use: No CD- Drugs: No Caffeine use: No Place of Residence: Home Review of Systems General: As per HPI Eyes: Unremarkable ENT: Unremarkable Respiratory: Unremarkable Cardiovascular: Chest Pain, Light Headedness, As per HPI Gastrointestinal: Unremarkable Genitourinary: Unremarkable Musculoskeletal: Unremarkable Integumentary: Unremarkable Neurological: Unremarkable Lymphatics: Unremarkable Physical Examination - Physical Exam General: Alert, In no apparent distress, Oriented x3, Cooperative HEENT: Atraumatic, Normocephalic, PERRLA, Mucous membr. moist/pink, EOMI, Sclerae nonicteric Neck: Supple, 2+ carotid pulse no bruit, JVD not distended, No Thyromegaly, No LAD Respiratory: Clear to auscultation bilaterally, Normal air movement Cardiovascular: No edema, Normal pulses, Regular rate/rhythm, Normal S1 S2, No gallops, No rubs, No murmurs Capillary refill: <2 Seconds Gastrointestinal: Normal bowel sounds, Soft and benign, Non-distended, No ascites, No tenderness, No masses, No rebound, No guarding Musculoskeletal: No clubbing, No swelling, No contractures, No erythema, No tenderness, No warmth Integumentary: No rashes, No breakdown, No significant lesion, No tenderness/swelling, No erythema, No warmth, No cyanosis Neurological: Normal speech, Normal strength at 5/5 x4 extr, Normal tone, Sensation intact, Cranial nerves 3-12 intact, Abnormal affect Lymphatics: No axilla or inguinal lymphadenopathy - Studies Laboratory Data (last 24 hrs) 12/06/20 17:14: PT 12.2, INR 1.06 12/06/20 17:14: WBC 8.10, Hgb 13.2 L, Hct 39.7, Plt Count 206 12/06/20 17:14: Sodium 139, Potassium 3.9, BUN 11, Creatinine 0.94, Glucose 182 H, Magnesium 2.0, Total Bilirubin 0.5, AST 23, ALT 36, Alkaline Phosphatase 110, Lipase 14 L Assessment and Plan - Problems (Diagnosis) (1) HLD (hyperlipidemia) Current Visit: Yes Status: Chronic Qualifiers: Hyperlipidemia type: unspecified Qualified Code(s): E78.5 - Hyperlipidemia, unspecified (2) HTN (hypertension) Current Visit: Yes Status: Chronic Qualifiers: Hypertension type: essential hypertension Qualified Code(s): I10 - Essential (primary) hypertension (3) History of lip cancer Current Visit: Yes Status: Chronic (4) Chronic pancreatitis Current Visit: No Status: Chronic (5) Diabetes mellitus Current Visit: No Status: Chronic Qualifiers: Diabetes mellitus type: type 2 Diabetes mellitus longterm insulin use: with intermediate teacher use Diabetes mellitus complication status: without complication Qualified Code(s): E11.9 - Type 2 diabetes mellitus without complications; Z79.4 - manager terminal (current) use of insulin (6) H/O gallbladder cancer Current Visit: No Status: Chronic (7) Chest pain Current Visit: Yes Status: Acute Qualifiers: Chest pain type: unspecified Qualified Code(s): R07.9 - Chest pain, unspecified - Plan cardiology consulted, on telemetry trend troponins and EKG daily ASA, PRN morphine and NTG BP currently stable, continue to monitor BG q2hrs, on insulin pump, prone to hypoglycemia, will monitor closely' lipid panel, A1c, TSH/T4 pending Discharge Plan: Home Plan to discharge in: 24 Hours - Advance Directives Does patient have a Living Will: No Does patient have a Durable POA for Healthcare: No - Code Status/Comfort Care Code Status Assessed: Yes (full code) Critical Care: No Time Spent Managing Pts Care (In Minutes): 70
[2020-12-07] MEDS ORDERED: ACETAMINOPHEN 500 MG TAB PO PRN (00:41)
[2020-12-07] MEDS ORDERED: HYDRALAZINE HCL 20 MG/ML VIAL IV PRN (00:41)
[2020-12-07] MEDS ORDERED: MORPHINE 2 MG/ML SYR IV PRN (00:41)
[2020-12-07] MEDS ORDERED: ONDANSETRON 4 MG/2 ML VIAL IV PRN (00:41)
[2020-12-07] MEDS ORDERED: HYDROCODONE/APAP 7.5/325 MG TAB PO PRN (00:41)
[2020-12-07] MEDS ORDERED: clonazePAM 0.5 MG TAB PO PRN ×2 (00:41→06:02)
[2020-12-07] MEDS ORDERED: NITROGLYCERIN 0.4 MG/TAB SL PRN (00:41)
[2020-12-07 00:51] VITALS: BMI 25.1
[2020-12-07 02:41] VITALS: O2SAT 96
[2020-12-07 04:05] LABS: Absolute Lymphocytes (CBC) 2.4 K/uL (0.7-4.9); Hematocrit 37.2 % (39.6-49.0); Lymphocytes % 30.5 % (15.3-44.8); MPV 10.8 fL (7.6-11.3); RBC Red Blood Cell Count 4.07 M/uL (4.33-5.43)
[2020-12-07 04:20] LABS: ALT/SGPT 32 U/L (12-78); AST/SGOT 20 U/L (15-37); Albumin 3.3 g/dL (3.4-5.0); Alkaline Phosphatase 103 U/L (45-117); BUN Blood Urea Nitrogen 10 mg/dL (7-18); Bicarbonate 29 mmol/L (21-32); Bilirubin Total 0.3 mg/dL (0.2-1.0); Glucose Level 340 mg/dL (74-106); HDL Cholesterol 29 mg/dL (40-60); LDL Cholesterol, Calculated 45 (<130); Potassium 4.1 mmol/L (3.5-5.1); Protein, Total 6.4 g/dL (6.4-8.2); Sodium Level 142 mmol/L (136-145); Thyroid Stimulating Hormone 0.879 uIU/mL (0.360-3.740); Troponin I < 0.02 ng/mL (0.0-0.045)
[2020-12-07 06:51] LABS: Urine Appearance CLEAR (Clear); Urine Bilirubin NEGATIVE (Negative); Urine Blood NEGATIVE (Negative); Urine Color YELLOW (Yellow); Urine Glucose 3+ (Negative); Urine Protein NEGATIVE (Negative); Urine Specific Gravity 1.015 (1.005-1.030)
[2020-12-07 06:55] LABS: Urine Microscopic Reflex NO UMIC
[2020-12-07] MEDS ORDERED: INSULIN -REGULAR HUMAN 50 UNIT/0.5 ML ML SQ SCH (07:30)
[2020-12-07 07:46] VITALS: BP 136/69; TEMP 98.1
[2020-12-07] MEDS ORDERED: PNEUMOCOCCAL VACCINE 0.5 ML IMVAC ONE (08:00)
[2020-12-07] MEDS ORDERED: LIPASE/PROTEASE/AMYLASE CAP PO SCH (09:00)
[2020-12-07] MEDS ORDERED: ASPIRIN EC 81 MG TAB PO SCH (09:00)
[2020-12-07] MEDS ORDERED: GABAPENTIN 400 MG CAP PO SCH (09:00)
[2020-12-07] MEDS ORDERED: PANTOPRAZOLE 40MG TABLET PO SCH (09:00)
[2020-12-07] MEDS ORDERED: LOSARTAN POTASSIUM 50 MG TABLET PO SCH (09:00)
[2020-12-07] MEDS ORDERED: ENOXAPARIN 40 MG/0.4 ML SQ SCH (09:00)
--- NOTE | 2020-12-07 10:07 | P.DS ---
Admission Date: 12/06/20 Discharge Date: 12/07/20 Primary Care Provider: Dr. Suh Disposition: ROUTINE DISCHARGE Discharge Condition: GOOD Reason for Admission: chest pain Consultations: Cardiology-Dr. Arnold Procedures: COVID: Negative CXR: COMPARISON: 2019 FINDINGS: The lungs appear clear of acute infiltrate. 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 He says the pain radiates down both arms. He feels lightheaded and feels like the room is spinning with these episodes. Today the episode began while he was sitting down. Symptoms relieved with ASA and NTG. Son reports increased weakness. Denies nausea, vomiting, abdominal pain. Smokes 1.5 ppd. Hospital Course: Patient presented with chest pain. Patient with history of hypertension, hyperlipidemia, diabetes mellitus type 2. Patient was monitored overnight. No significant EKG changes noted. Cardiac enzymes unremarkable. Patient seen and evaluated by cardiology. No intervention required. At discharge patient may continue with current medications including aspirin 81 mg daily, losartan 100 mg daily, and lovastatin 20 mg daily. Recommend follow-up with cardiology in 1 to 2 weeks to follow his hospitalization. Patient may have outpatient cardiac work-up including stress test if chest pain persist. Patient with hypertension, hyperlipidemia. LDL within normal range. Blood pressure stable. At discharge patient will continue with current medications losartan 100 mg daily and lovastatin 20 mg daily. Recommend to maintain blood pressure less than 130/80. Further treatment can be done by PCP. Patient with diabetes mellitus type 2. Patient with insulin pump. Patient will continue with insulin pump as directed. Recommend follow-up with PCP or endocrinology to further monitor and adjust. Recommend to maintain blood sugar less than 140 fasting and less than 200 after meals. Recommend to recheck hemoglobin A1c every 3 months to monitor his progress. Recommend follow-up with PCP in 1 week. Patient with history of Whipple procedure and gallbladder cancer. Patient with chronic pancreatitis. Patient also with chronic pain. At discharge patient will continue with current medications including [place] 7.5 as directed, Creon 3 times a day, and gabapentin 100 mg 3 times a day. Recommend follow-up with GI to further monitor and adjust medication. Patient would benefit with pain management referral to further address his chronic pain. Patient with anxiety. At discharge patient will continue with Klonopin 1 mg 1 pill twice daily as needed. Vital Signs/Physical Exam: Temp Pulse Resp BP Pulse Ox 98.1 F 77 16 136/69 97 12/07/20 07:45 12/07/20 07:45 12/07/20 07:45 12/07/20 07:45 12/07/20 07:45 General: Alert, In no apparent distress, Cooperative HEENT: Atraumatic Neck: Supple Respiratory: Clear to auscultation bilaterally, Normal air movement Cardiovascular: Normal pulses, Regular rate/rhythm Gastrointestinal: Normal bowel sounds, No guarding Integumentary: No tenderness/swelling Neurological: Normal speech, Normal strength at 5/5 x4 extr, Normal tone, Normal affect Laboratory Data at Discharge: WBC 8.00 K/uL (4.3-10.9) 12/07/20 03:04 Hgb 12.3 g/dL (13.6-17.9) L 12/07/20 03:04 Hct 37.2 % (39.6-49.0) L 12/07/20 03:04 Plt Count 187 K/uL (152-406) 12/07/20 03:04 PT 12.2 SECONDS (9.5-12.5) 12/06/20 17:14 INR 1.06 12/06/20 17:14 Sodium 142 mmol/L (136-145) 12/07/20 03:04 Potassium 4.1 mmol/L (3.5-5.1) 12/07/20 03:04 BUN 10 mg/dL (7-18) 12/07/20 03:04 Creatinine 1.11 mg/dL (0.55-1.3) 12/07/20 03:04 Glucose 340 mg/dL (74-106) H 12/07/20 03:04 Phosphorus 3.0 mg/dL (2.5-4.9) 12/07/20 03:04 Magnesium 2.0 mg/dL (1.8-2.4) 12/07/20 03:04 Total Bilirubin 0.3 mg/dL (0.2-1.0) 12/07/20 03:04 AST 20 U/L (15-37) 12/07/20 03:04 ALT 32 U/L (12-78) 12/07/20 03:04 Alkaline Phosphatase 103 U/L (45-117) 12/07/20 03:04 Troponin I < 0.02 ng/mL (0.0-0.045) 12/07/20 03:04 Triglycerides 89 mg/dL (<150) 12/07/20 03:04 Cholesterol 92 mg/dL (<200) 12/07/20 03:04 HDL Cholesterol 29 mg/dL (40-60) L 12/07/20 03:04 Cholesterol/HDL Ratio 3.17 12/07/20 03:04 Lipase 14 U/L (73-393) L 12/06/20 17:14 Home Medications: Gabapentin 400 mg PO TID 02/18/19 Losartan Potassium 100 mg PO DAILY 02/18/19 Lovastatin 20 mg PO BEDTIME 02/18/19 Pantoprazole Sodium [Protonix] 40 mg PO DAILY 02/18/19 clonazePAM [Klonopin*] 1 mg PO BID 02/18/19 tadalafiL [Tadalafil] 1 tab PO DAILY PRN 01/26/20 Hydrocodone Bit/Acetaminophen [Hydrocodon-Acetaminoph 7.5-325] 1 each PO Q6HP PRN 12/07/20 Insulin Lispro [Humalog] 12/07/20 Lipase/Protease/Amylase [Azalia Dr 12,000 Units Capsule] 1 cap TID 12/07/20 Physician Discharge Instructions: Patient presented with chest pain. Patient with history of hypertension, hyperlipidemia, diabetes mellitus type 2. Patient was monitored overnight. No significant EKG changes noted. Cardiac enzymes unremarkable. Patient seen and evaluated by cardiology. No intervention required. At discharge patient may continue with current medications including aspirin 81 mg daily, losartan 100 mg daily, and lovastatin 20 mg daily. Recommend follow-up with cardiology in 1 to 2 weeks to follow his hospitalization. Patient may have outpatient cardiac work-up including stress test if chest pain persist. Patient with hypertension, hyperlipidemia. LDL within normal range. Blood pressure stable. At discharge patient will continue with current medications losartan 100 mg daily and lovastatin 20 mg daily. Recommend to maintain blood pressure less than 130/80. Further treatment can be done by PCP. Patient with diabetes mellitus type 2. Patient with insulin pump. Patient will continue with insulin pump as directed. Recommend follow-up with PCP or endocrinology to further monitor and adjust. Recommend to maintain blood sugar less than 140 fasting and less than 200 after meals. Recommend to recheck hemoglobin A1c every 3 months to monitor his progress. Recommend follow-up with PCP in 1 week. Patient with history of Whipple procedure and gallbladder cancer. Patient with chronic pancreatitis. Patient also with chronic pain. At discharge patient will continue with current medications including [place] 7.5 as directed, Creon 3 times a day, and gabapentin 100 mg 3 times a day. Recommend follow-up with GI to further monitor and adjust medication. Patient would benefit with pain management referral to further address his chronic pain. Patient with anxiety. At discharge patient will continue with Klonopin 1 mg 1 pill twice daily as needed. Diet: ADA Activity: Ad milton Followup: Unknown,U [Primary Care Provider] - Time spent managing pt's care (in minutes): 55
[2020-12-07] MEDS ORDERED: ATORVASTATIN 10 MG TAB PO SCH (21:00)
--- NOTE | 2020-12-08 08:18 | ECHO ---
HEIGHT: 5 ft 9 in WEIGHT: 170 lb 1.6 oz DATE OF STUDY: 12/07/[address]: Chris Arnold MD 2-DIMENSIONAL: YES M.MODE: YES DOPPLER: YES COLOR FLOW: YES TDS: NO PORTABLE: NO DEFINITY: NO BUBBLE STUDY: NO DIAGNOSIS: CHEST PAIN CARDIAC HISTORY: CATHERIZATION: SURGERY: PROSTHETIC VALVE: PACEMAKER: MEASUREMENTS (cm) DIASTOLIC (NORMALS) SYSTOLIC (NORMALS) IVSd 0.9 (0.6-1.2) LA Diam 3.0 (1.9-4.0) LVEF 55% LVIDd 5.0 (3.5-5.7) LVIDs 3.6 (2.0-3.5) %FS 29% LVPWd 1.1 (0.6-1.2) Ao Diam 3.4 (2.0-3.7) 2 DIMENSIONAL ASSESSMENT: RIGHT ATRIUM: NORMAL LEFT ATRIUM: NORMAL RIGHT VENTRICLE: NORMAL LEFT VENTRICLE: NORMAL TRICUSPID VALVE: NORMAL MITRAL VALVE: PULMONIC VALVE: NORMAL AORTIC VALVE: NORMAL PERICARDIAL EFFUSION: NONE AORTIC ROOT: NORMAL LEFT VENTRICULAR WALL MOTION: NORMAL DOPPLER/COLOR FLOW: MILD REGURGITATION. COMMENTS: NORMAL LEFT VENTRICULAR EJECTION FRACTION 55-60%. NORMAL WALL MOTION. MILD REGURGITATION. TECHNOLOGIST: Moriah WAYNE
--- NOTE | 2020-12-09 09:02 | CON ---
Date of Consultation: 12/07/2020 Reason For Admission: Right-sided chest pain, atypical. History Of Present Illness: Mr. Segundo is a 65-year-old. Has a history of hypertension, diabetes, d yslipidemia and previous coronary artery disease. Came in with right-sided stabbing chest pain that is worse with movement and breathing. No nausea, vomiting, diaphoresis, PND, orthopnea, pedal edema, palpitation, or syncope. He has already ruled out for [place]. His glucose was 337. EKG was normal. X -ray was normal. Troponin was normal. BNP was normal. Past Medical History: As stated above. Review of Systems: Positive for vertigo. Allergies: HE IS ALLERGIC TO METAXALONE. Medications: At home include losartan, lovastatin, insulin, Protonix, Klonopin, Neurontin, Flexeril, and hydrocodone. Social History: Negative. Family History: Negative. Review of Systems: Negative. Physical Examination: General: He appears older than stated age, but no acute distress. Vital Signs: Stable, afebrile. HEENT: Negative. Neck: Supple with no bruit, lymphadenopathy, JVD, or thyromegaly. Chest: Clear. Cardiac: Revealed a regular rhythm and rate with an S4 gallops. No murmurs or rubs. Abdomen: Benign. Extremities: Revealed no clubbing, cyanosis, edema. Diagnostic Data: Showed a glucose of 337, otherwise they were normal. Impression And Plan: Atypical chest pain. Echocardiogram is pending. The patient has multiple card iac risk factors including hypertension, dyslipidemia, and diabetes. I think an outpatient MPI would be reasonable. His other problems at this point including chronic pain, depression, gastroesophagea l reflux disease, hypertension, dyslipidemia and diabetes are fairly well controlled. His glucose le rocio is 337 that needs to be addressed. He can go home whenever it is okay with Dr. Akbar. Will get an outpatient appointment. SKYLAR/MOHAMUD Voice ID: [id number] Report ID: [id number]
== END 2020-12-07 11:51 | disposition home or self-care (01) ==
LOC: ER 16:56 → ERHOLD 22:27 → 4TH 12-07 00:14
PROVIDERS: ADMIT Family Medicine; ATTEND Family Medicine
DX: R07.89 Other chest pain (principal); E11.9 Type 2 diabetes mellitus without complications; I10 Essential (primary) hypertension; E78.5 Hyperlipidemia, unspecified; C23 Malignant neoplasm of gallbladder; Z96.41 Presence of insulin pump (external) (internal); G89.29 Other chronic pain; Z20.822 Contact with and (suspected) exposure to COVID-19; F32.9 Major depressive disorder, single episode, unspecified; K21.9 Gastro-esophageal reflux disease without esophagitis; K86.1 Other chronic pancreatitis; G25.81 Restless legs syndrome; F17.210 Nicotine dependence, cigarettes, uncomplicated; Z85.819 Personal history of malignant neoplasm of unspecified site of lip, oral cavity, and pharynx; Z79.4 Long term (current) use of insulin
CPT/HCPCS: 96361; 93005; 93306; 85025 ×2; 80048; 36415; 83735 ×2; 84100; 85610; 80061; 82947 ×4; 80076; 84443; 81003; 84484 ×3; 84439; 83690; 80053; 83880; 71045; 94760; 96360; 99285; U0003; J1650; J7030; G0378

== ENCOUNTER 2022-07-22 20:27 | Emergency (ER) | payer OTHER ==
--- OUTSIDE RECORDS SUMMARY | 2022-07-22 20:51 | XMS REPORT | Continuity of Care Document ---
:1955 [facility] t Address [address] [place] [address] Care Team Providers Name Role Phone Ray Suh MD Primary Care Physician BRADY CARDOZO Attending Clinician Unavailable MARIOLA BERRIOS Attending Clinician Unavailable MIGNON ANTONIO Attending Clinician Unavailable BETI NY Attending Clinician Unavailable THOMAS ALEJANDRA Attending Clinician Unavailable ALINA SOLITARIO Attending Clinician Unavailable DARRYN LEA Attending Clinician Unavailable RAY SUH Attending Clinician Unavailable ANNE-MARIE NUNEZ Attending Clinician Unavailable Thomas Alejandra MD Attending Clinician Ray Suh MD Attending Clinician Beti Fox Attending Clinician Pob, Adc Lab Main Attending Clinician Unavailable Nurse, Ang Endo/Diab Attending Clinician Unavailable Darryn Lea MD Attending Clinician MIO AKBAR Attending Clinician Unavailable MIO AKABR Attending Clinician Unavailable Mariola Berrios MD Attending Clinician Alina Burch Attending Clinician Chintan Richards MD.HLon Attending Clinician CHINTAN RICHARDS.HLon Attending Clinician Unavailable Doctor Unassigned, [place] Attending Clinician Unavailable Brady Cardozo MD Attending Clinician Mayra PROP SETTER, Anne-Marie Attending Clinician Chetna BUSH, Ángel Acosta Attending Clinician HERMILA COLIN Attending Clinician Unavailable MARIA LUISA JARVIS Attending Clinician Unavailable Simona PAC, Maria Luisa Garcia Attending Clinician Jian ANGELES Attending Clinician Unavailable Jian Chicas Attending Clinician ANTHONY NASH Attending Clinician Unavailable Charity PROP SETTER, Anthony Attending Clinician Chet BUSH, Rebecca Garcia Attending Clinician 2, Adc Lab Attending Clinician Unavailable SERGO MONTERO Attending Clinician Unavailable Only, Adc Test Attending Clinician Unavailable Nurse, Adc Pob Immunization Attending Clinician Unavailable Tony Lopez DO Attending Clinician TONY LOPEZ Attending Clinician Unavailable Paco BUSH, Mignon Gould Attending Clinician [phone] Francisco BUSH, Austyn Kelly Attending Clinician Martha HO, Katlyn Attending Clinician Unavailable Antoine Erwin RN Attending Clinician Unavailable Layne Zacarias MD Attending Clinician LAYNE ZACARIAS Attending Clinician Unavailable Jovanni Amador MD Attending Clinician JOVANNI AMADOR Attending Clinician Unavailable [facility] Care Attending Clinician Unavailable Nata Wong PA-C Attending Clinician Falguni Oneal Attending Clinician MEREDITH RUSHING Attending Clinician Unavailable Carlo Alva RN Attending Clinician Unavailable Tremayne Herrmann MD Attending Clinician Qi BUSH, Jackie Attending Clinician Lab, Adc Fam Pob I Attending Clinician Unavailable LILIA RICH Attending Clinician Unavailable LILIA RICH Attending Clinician Unavailable Lilia Rich DO Attending Clinician ELLIE DU Attending Clinician Unavailable Annabel Hinojosa Attending Clinician BRADY CARDOZO Admitting Clinician Unavailable MARIOLA BERRIOS Admitting Clinician Unavailable AUSTYN HANKS Admitting Clinician Unavailable MIGNON ANTONIO Admitting Clinician Unavailable BETI NY Admitting Clinician Unavailable Brady Cardozo MD Admitting Clinician Jian ANGELES Admitting Clinician Unavailable Mariola Berrios MD Admitting Clinician Mignon Antonio MD Admitting Clinician [phone] Austyn Hanks MD Admitting Clinician Jackie Busby MD Admitting Clinician LILIA RICH Admitting Clinician Unavailable ELLIE DU Admitting Clinician Unavailable Payers Payer Name Policy Type Policy Number Effective Date Expiration Date Jose tobias [facility] [place] PLUS [id number] 2021 NO PREMIUM HMO/POS 00:00:00 MEDICARE PART A [id number] 2011 \T\ B 00:00:00 [employer] MEDICARE ADV [id number] 2020 00:00:00 Problems Condition Condition Condition Status Onset Resolution Last Treating Co mments Source Name Details Category Date Date Treatment Clinician Date Dermatocha Dermatocha Disease Active Overview : Univers lasis of lasis of 12-29 Formattin ity of both upper both upper 00:00: g of this [place] eyelids eyelids 00 note Medical might be Branch different from the original. 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 Added automatic ally from request for surgery [id number] Retained Retained Disease Active 2020-07 Overview: Un aisha lens lens 0-22 Formattin ity of matter of matter of 00:00: [place] of this [place] right eye right eye 00 note Medi lisa might be Branch different from the original. Added automatic ally from request for surgery [id number] Combined Combined Disease Active Overview: Un aisha forms of forms of 9-20 Formattin ity of age-relate age-relate 00:00: g of this [place] d cataract d cataract 00 note Me dical of both of both might be Branch eyes eyes different from the original. Added automatic ally from request for surgery [id number] Dizzy Dizzy Disease Active 2019-07 Univers spells spells 0-22 ity of 00:00: [place] [facility] Syncope Syncope Disease Active 2019-07 Univers 0-21 ity of 00:00: Medical Branch Anxiety Anxiety Disease Active Univers 1-22 ity of 00:00: Medical Branch Other Other Disease Active Univers chronic chronic 8-24 ity of pain pain 00:00: [place] [facility] Branch Diabetes Diabetes Disease Active Unive rs mellitus mellitus 1-29 it[place] of associated [place] with 00 Medical pancreatic pancreatic Br anch disease disease Abdominal Abdominal Disease Active Uni vers pain pain 1-24 ity of 00:00: [place] [facility] Branch Liver Liver Disease Recurre Univers abscess abscess nce 1- ity of 00:00: Medical Branch Paraesopha Paraesopha Disease Active U nivers geal fluid geal fluid 4-08 it [place] of [place] [facility] Hyponatrem Hyponatrem Disease Active 2015- U nivers ia ia 4-04 ity of 00:00: Medical Branch Hyperlipid Hyperlipid Disease Active 2015-0 U nivers emia emia 4-04 ity of 00:00: [place] [facility] Essential Essential Disease Active Uni vers hypertensi hypertensi 4-04 it y of on on 00:00: [place] [facility] Normocytic Normocytic Disease Active 2016-0 U nivers anemia anemia 4-04 ity of 00:00: Medical Branch Thrombocyt Thrombocyt Disease Active 2015- U nivers osis osis 4-04 ity of 00:00: [place] [facility] Pneumobili Pneumobili Disease Active 2016-0 U nivers a a 4-03 ity of 00:00: [place] [facility] Biliary Biliary Disease Active Univers tract tract 10-31 ity of cancer cancer 00:00: [address] Allergies, Adverse Reactions, Alerts Allergy Allergy Status Severity Reaction(s) Onset Inactive Treating Comm ents Source Name Type Date Date Clinician Trish Propensi Active Other - See Chest U nivers ne ty to comments 10-30 tightness ity o f adverse 00:00: , rash [place] reaction 00 all over Medica l s body Branch METAXALO DRUG Active Other-Cmnt Univ ers NE INGREDI 10-30 ity of 00:00: [place] [facility] Social History Social Habit Start Date Stop Date Quantity Comments Source History of tobacco Cigarette Smoker University of use [facility] Exposure to 2022-07-08 2022-07-18 Not sure University SARS-CoV-2 (event) 00:00:00 13:08:00 [facility] Alcohol intake 2022-07-18 2022-07-18 0 /d University of 00:00:00 00:00:00 [facility] Cigarettes smoked 2022-04-26 2022-04-26 Univers ity of current (pack per 00:00:00 00:00:00 [facility] ) - Reported Branch Cigarette 2022-04-26 2022-04-26 University of pack-years 00:00:00 00:00:00 [facility] Tobacco use and 2022-04-26 2022-04-26 Smokeless Universit y of exposure 00:00:00 00:00:00 tobacco non-user [facility] Sex [birth year] Universit y of 00:00:00 00:00:00 [facility] Smoking Status Start Date Stop Date Source Smokes tobacco daily 2022-04-26 00:00:00 Univers ity of [facility] Medications Ordered Filled Start Stop Current Ordering Indication Dosage Frequency Signature Comments Components Source Medication Medication Date Date Medication? Clinician (SIG) Name Name CILOSTAZOL 2021-07 Yes [id number] TAKE 1 U nivers 100 mg 2-23 TABLET BY ity of tablet 00:00: MOUTH IN [place] [address] THE Medical MORNING Branch AND IN THE EVENING amLODIPine 2021-07 Yes [id number] 10mg Take 1 U nivers 10 mg 2-15 tablet by ity of tablet 00:00: mouth in [place] the morning. Branch cilostazoL 2021-07 Yes [id number] 100mg Take 1 Univers 100 mg 2-15 tablet by ity of tablet 00:00: mouth in [place] the morning Branch and 1 tablet in the evening. amLODIPine 2021- Yes [id number] 10mg Take 1 U nivers 10 mg 2-15 tablet by ity of tablet 00:00: mouth in [place] the morning. Branch cilostazoL 2021-07 Yes [id number] 100mg Take 1 Univers 100 mg 2-15 tablet by ity of tablet 00:00: mouth in [place] the Medical morning Branch and 1 tablet in the evening. amLODIPine 2021- Yes [id number] 10mg Take 1 U nivers 10 mg 2-15 tablet by ity of tablet 00:00: mouth in [place] the morning. Branch cilostazoL 2021-07 Yes [id number] 100mg Take 1 Univers 100 mg 2-15 tablet by ity of tablet 00:00: mouth in [place] the morning Branch and 1 tablet in the evening. amLODIPine 2021-07 Yes [id number] 10mg Take 1 U nivers 10 mg 2-15 tablet by ity of tablet 00:00: mouth in [place] the morning. Branch cilostazoL 2021-07 Yes [id number] 100mg Take 1 Univers 100 mg 2-15 tablet by ity of tablet 00:00: mouth in [place] the morning Branch and 1 tablet in the evening. amLODIPine 2021- Yes [id number] 10mg Take 1 U nivers 10 mg 2-15 tablet by ity of tablet 00:00: mouth in [place] the morning. Branch cilostazoL 2021-07 Yes [id number] 100mg Take 1 Univers 100 mg 2-15 tablet by ity of tablet 00:00: mouth in [place] the morning Branch and 1 tablet in the evening. amLODIPine 2021-1 Yes [id number] 10mg Take 1 U nivers 10 mg 2-15 tablet by ity of tablet 00:00: mouth in [place] the morning. Branch cilostazoL 2021- Yes [id number] 100mg Take 1 Univers 100 mg 2-15 tablet by ity of tablet 00:00: mouth in [place] the Medical morning Branch and 1 tablet in the evening. amLODIPine 2021-07 Yes [id number] 10mg Take 1 U nivers 10 mg 2-15 tablet by ity of tablet 00:00: mouth in [place] 00 the Medical morning. Branch cilostazoL 2021-07- No [id number] 100mg Take 1 Univers 100 mg 2-15 12-23 tablet by ity of tablet 00:00: 00:00 mouth in [place] 00 :00 the Medical morning Branch and 1 tablet in the evening. FLUTICASONE 2021-07 Yes [id number] SPRAY 2 Univers PROPIONATE 2-07 SPRAYS ity of 50 00:00: INTO EACH [place] mcg/actuati 00 NOSTRIL Medic al on nasal EVERY DAY Branch spray FLUTICASONE 2021-07 Yes [id number] SPRAY 2 Univers PROPIONATE 2-07 SPRAYS ity of 50 00:00: INTO EACH [place] mcg/actuati 00 NOSTRIL Medic al on nasal EVERY DAY Branch spray FLUTICASONE 2021-07 Yes [id number] SPRAY 2 Univers PROPIONATE 2-07 SPRAYS ity of 50 00:00: INTO EACH [place] mcg/actuati 00 NOSTRIL Medic al on nasal EVERY DAY Branch spray FLUTICASONE 2021-07 Yes [id number] SPRAY 2 Univers PROPIONATE 2-07 SPRAYS ity of 50 00:00: INTO EACH [place] mcg/actuati 00 NOSTRIL Medic al on nasal EVERY DAY Branch spray FLUTICASONE 2021-07 Yes [id number] SPRAY 2 Univers PROPIONATE 2-07 SPRAYS ity of 50 00:00: INTO EACH [place] mcg/actuati 00 NOSTRIL Medic al on nasal EVERY DAY Branch spray FLUTICASONE 2021-07 Yes [id number] SPRAY 2 Univers PROPIONATE 2-07 SPRAYS ity of 50 00:00: INTO EACH [place] mcg/actuati 00 NOSTRIL Medic al on nasal EVERY DAY Branch spray FLUTICASONE 2021-07 Yes [id number] SPRAY 2 Univers PROPIONATE 2-07 SPRAYS ity of 50 00:00: INTO EACH [place] mcg/actuati 00 NOSTRIL Medic al on nasal EVERY DAY Branch spray FLUTICASONE 2021-07 Yes [id number] SPRAY 2 Univers PROPIONATE 2-07 SPRAYS ity of 50 00:00: INTO EACH [place] mcg/actuati 00 NOSTRIL Medic al on nasal EVERY DAY Branch spray FLUTICASONE 2021-07 Yes [id number] SPRAY 2 Univers PROPIONATE 2-07 SPRAYS ity of 50 00:00: INTO EACH [place] mcg/actuati 00 NOSTRIL Medic al on nasal EVERY DAY Branch spray FLUTICASONE 2021-07 Yes [id number] SPRAY 2 Univers PROPIONATE 2-07 SPRAYS ity of 50 00:00: INTO EACH [place] mcg/actuati 00 NOSTRIL Medic al on nasal EVERY DAY Branch spray FLUTICASONE 2021-07 Yes [id number] SPRAY 2 Univers PROPIONATE 2-07 SPRAYS ity of 50 00:00: INTO EACH [place] mcg/actuati 00 NOSTRIL Medic al on nasal EVERY DAY Branch spray FLUTICASONE 2021-07 Yes [id number] SPRAY 2 Univers PROPIONATE 2-07 SPRAYS ity of 50 00:00: INTO EACH [place] mcg/actuati 00 NOSTRIL Medic al on nasal EVERY DAY Branch spray HYDROcodone 2021-07 Yes [id number] 1{tbl} Take 1 Un aisha -acetaminop 1-28 tablet by ity of hen 7.5-325 00:00: mouth [place] mg per 00 every 6 Medical tablet (six) Branch hours as needed for Pain. Indication s: chronic pain HYDROcodone 2021-07 Yes [id number] 1{tbl} Take 1 Un aisha -acetaminop 1-28 tablet by ity of hen 7.5-325 00:00: mouth [place] mg per 00 every 6 Medical tablet (six) Branch hours as needed for Pain. Indication s: chronic pain HYDROcodone 2021-07 Yes [id number] 1{tbl} Take 1 Un aisha -acetaminop 1-28 tablet by ity of hen 7.5-325 00:00: mouth [place] mg per 00 every 6 Medical tablet (six) Branch hours as needed for Pain. Indication s: chronic pain HYDROcodone 2021-07 Yes [id number] 1{tbl} Take 1 Un aisha -acetaminop 1-28 tablet by ity of hen 7.5-325 00:00: mouth [place] mg per 00 every 6 Medical tablet (six) Branch hours as needed for Pain. Indication s: chronic pain HYDROcodone 2021-07 Yes [id number] 1{tbl} Take 1 Un aisha -acetaminop 1-28 tablet by ity of hen 7.5-325 00:00: mouth [place] mg per 00 every 6 Medical tablet (six) Branch hours as needed for Pain. Indication s: chronic pain HYDROcodone 2021-07 Yes [id number] 1{tbl} Take 1 Un aisha -acetaminop 1-28 tablet by ity of hen 7.5-325 00:00: mouth [place] mg per 00 every 6 Medical tablet (six) Branch hours as needed for Pain. Indication s: chronic pain HYDROcodone 2021-07 Yes [id number] 1{tbl} Take 1 Un aisha -acetaminop 1-28 tablet by ity of hen 7.5-325 00:00: mouth [place] mg per 00 every 6 Medical tablet (six) Branch hours as needed for Pain. Indication s: chronic pain HYDROcodone 2021-07 Yes [id number] 1{tbl} Take 1 Un aisha -acetaminop 1-28 tablet by ity of hen 7.5-325 00:00: mouth [place] mg per 00 every 6 Medical tablet (six) Branch hours as needed for Pain. Indication s: chronic pain HYDROcodone 2021-07 Yes [id number] 1{tbl} Take 1 Un aisha -acetaminop 1-28 tablet by ity of hen 7.5-325 00:00: mouth [place] mg per 00 every 6 Medical tablet (six) Branch hours as needed for Pain. Indication s: chronic pain HYDROcodone 2021-07 Yes [id number] 1{tbl} Take 1 Un aisha -acetaminop 1-28 tablet by ity of hen 7.5-325 00:00: mouth [place] mg per 00 every 6 Medical tablet (six) Branch hours as needed for Pain. Indication s: chronic pain HYDROcodone 2021-07 Yes [id number] 1{tbl} Take 1 Un aisha -acetaminop 1-28 tablet by ity of hen 7.5-325 00:00: mouth [place] mg per 00 every 6 Medical tablet (six) Branch hours as needed for Pain. Indication s: chronic pain HYDROcodone 2021-07 Yes [id number] 1{tbl} Take 1 Un aisha -acetaminop 1-28 tablet by ity of hen 7.5-325 00:00: mouth [place] mg per 00 every 6 Medical tablet (six) Branch hours as needed for Pain. Indication s: chronic pain HYDROcodone 2021-07 Yes [id number] 1{tbl} Take 1 Un aisha -acetaminop 1-28 tablet by ity of hen 7.5-325 00:00: mouth [place] mg per 00 every 6 Medical tablet (six) Branch hours as needed for Pain. Indication s: chronic pain HYDROcodone 2021- Yes [id number] 1{tbl} Take 1 Un aisha -acetaminop 1-28 tablet by ity of hen 7.5-325 00:00: mouth [place] mg per 00 every 6 Medical tablet (six) Branch hours as needed for Pain. Indication s: chronic pain CYCLOBENZAP 2021- Yes [id number] TAKE 1 Univers RINE 10 mg 1-23 TABLET BY ity of tablet 00:00: MOUTH [place] 00 THREE Medical TIMES A Branch DAY NEEDED FOR MUSCLE SPASMS CYCLOBENZAP 2021- Yes [id number] TAKE 1 Univers RINE 10 mg 1-23 TABLET BY ity of tablet 00:00: MOUTH [place] 00 THREE Medical TIMES A Branch DAY NEEDED FOR MUSCLE SPASMS CYCLOBENZAP 2021- Yes [id number] TAKE 1 Univers RINE 10 mg 1-23 TABLET BY ity of tablet 00:00: MOUTH [place] 00 THREE Medical TIMES A Branch DAY NEEDED FOR MUSCLE SPASMS CYCLOBENZAP 2021-1 Yes [id number] TAKE 1 Univers RINE 10 mg 1-23 TABLET BY ity of tablet 00:00: MOUTH [place] 00 THREE Medical TIMES A Branch DAY NEEDED FOR MUSCLE SPASMS CYCLOBENZAP 2021-1 Yes [id number] TAKE 1 Univers RINE 10 mg 1-23 TABLET BY ity of tablet 00:00: MOUTH [place] 00 THREE Medical TIMES A Branch DAY NEEDED FOR MUSCLE SPASMS CYCLOBENZAP 2-1 Yes [id number] TAKE 1 Univers RINE 10 mg 1-23 TABLET BY ity of tablet 00:00: MOUTH [place] 00 THREE Medical TIMES A Branch DAY NEEDED FOR MUSCLE SPASMS CYCLOBENZAP 2-1 Yes [id number] TAKE 1 Univers RINE 10 mg 1-23 TABLET BY ity of tablet 00:00: MOUTH [place] 00 THREE Medical TIMES A Branch DAY NEEDED FOR MUSCLE SPASMS CYCLOBENZAP 2-1 Yes [id number] TAKE 1 Univers RINE 10 mg 1-23 TABLET BY ity of tablet 00:00: MOUTH [place] 00 THREE Medical TIMES A Branch DAY NEEDED FOR MUSCLE SPASMS CYCLOBENZAP 2-1 Yes [id number] TAKE 1 Univers RINE 10 mg 1-23 TABLET BY ity of tablet 00:00: MOUTH [place] 00 THREE Medical TIMES A Branch DAY NEEDED FOR MUSCLE SPASMS CYCLOBENZAP 2021- Yes [id number] TAKE 1 Univers RINE 10 mg 1-23 TABLET BY ity of tablet 00:00: MOUTH [place] 00 THREE Medical TIMES A Branch DAY NEEDED FOR MUSCLE SPASMS CYCLOBENZAP 2021- Yes [id number] TAKE 1 Univers RINE 10 mg 1-23 TABLET BY ity of tablet 00:00: MOUTH [place] 00 THREE Medical TIMES A Branch DAY NEEDED FOR MUSCLE SPASMS CYCLOBENZAP 2021- Yes [id number] TAKE 1 Univers RINE 10 mg 1-23 TABLET BY ity of tablet 00:00: MOUTH [place] 00 THREE Medical TIMES A Branch DAY NEEDED FOR MUSCLE SPASMS CYCLOBENZAP 2021- Yes [id number] TAKE 1 Univers RINE 10 mg 1-23 TABLET BY ity of tablet 00:00: MOUTH [place] 00 THREE Medical TIMES A Branch DAY NEEDED FOR MUSCLE SPASMS CYCLOBENZAP 2021- Yes [id number] TAKE 1 Univers RINE 10 mg 1-23 TABLET BY ity of tablet 00:00: MOUTH [place] 00 THREE Medical TIMES A Branch DAY NEEDED FOR MUSCLE SPASMS CYCLOBENZAP 2021- Yes [id number] TAKE 1 Univers RINE 10 mg 1-23 TABLET BY ity of tablet 00:00: MOUTH [place] 00 THREE Medical TIMES A Branch DAY NEEDED FOR MUSCLE SPASMS CYCLOBENZAP 2021- Yes [id number] TAKE 1 Univers RINE 10 mg 1-23 TABLET BY ity of tablet 00:00: MOUTH [place] 00 THREE Medical TIMES A Branch DAY NEEDED FOR MUSCLE SPASMS lipase-prot 2021- Yes [id number] TAKE 1 Univers ease-amylas 1-17 CAPSULE BY it y of e (CREON) 00:00: MOUTH 3 [place] 12,000-38,0 00 (THREE) Medic al 00 -60,000 TIMES Branch unit DAILY WITH capsule MEALS. lipase-prot 2021- Yes [id number] TAKE 1 Univers ease-amylas 1-17 CAPSULE BY it y of e (CREON) 00:00: MOUTH 3 [place] 12,000-38,0 00 (THREE) Medic al 00 -60,000 TIMES Branch unit DAILY WITH capsule MEALS. lipase-prot 2021- Yes [id number] TAKE 1 Univers ease-amylas 1-17 CAPSULE BY it y of e (CREON) 00:00: MOUTH 3 [place] 12,000-38,0 00 (THREE) Medic al 00 -60,000 TIMES Branch unit DAILY WITH capsule MEALS. lipase-prot 2021-07 Yes [id number] TAKE 1 Univers ease-amylas 1-17 CAPSULE BY it y of e (CREON) 00:00: MOUTH 3 [place] 12,000-38,0 00 (THREE) Medic al 00 -60,000 TIMES Branch unit DAILY WITH capsule MEALS. lipase-prot 2021-07 Yes [id number] TAKE 1 Univers ease-amylas 1-17 CAPSULE BY it y of e (CREON) 00:00: MOUTH 3 [place] 12,000-38,0 00 (THREE) Medic al 00 -60,000 TIMES Branch unit DAILY WITH capsule MEALS. lipase-prot 2021-07 Yes [id number] TAKE 1 Univers ease-amylas 1-17 CAPSULE BY it y of e (CREON) 00:00: MOUTH 3 [place] 12,000-38,0 00 (THREE) Medic al 00 -60,000 TIMES Branch unit DAILY WITH capsule MEALS. lipase-prot 2021-07 Yes [id number] TAKE 1 Univers ease-amylas 1-17 CAPSULE BY it y of e (CREON) 00:00: MOUTH 3 [place] 12,000-38,0 00 (THREE) Medic al 00 -60,000 TIMES Branch unit DAILY WITH capsule MEALS. lipase-prot 2021-07 Yes [id number] TAKE 1 Univers ease-amylas 1-17 CAPSULE BY it y of e (CREON) 00:00: MOUTH 3 [place] 12,000-38,0 00 (THREE) Medic al 00 -60,000 TIMES Branch unit DAILY WITH capsule MEALS. lipase-prot 2021-07 Yes [id number] TAKE 1 Univers ease-amylas 1-17 CAPSULE BY it y of e (CREON) 00:00: MOUTH 3 [place] 12,000-38,0 00 (THREE) Medic al 00 -60,000 TIMES Branch unit DAILY WITH capsule MEALS. lipase-prot 2021-07 Yes [id number] TAKE 1 Univers ease-amylas 1-17 CAPSULE BY it y of e (CREON) 00:00: MOUTH 3 [place] 12,000-38,0 00 (THREE) Medic al 00 -60,000 TIMES Branch unit DAILY WITH capsule MEALS. lipase-prot 2021-07 Yes [id number] TAKE 1 Univers ease-amylas 1-17 CAPSULE BY it y of e (CREON) 00:00: MOUTH 3 [place] 12,000-38,0 00 (THREE) Medic al 00 -60,000 TIMES Branch unit DAILY WITH capsule MEALS. lipase-prot 2021-07 Yes [id number] TAKE 1 Univers ease-amylas 1-17 CAPSULE BY it y of e (CREON) 00:00: MOUTH 3 [place] 12,000-38,0 00 (THREE) Medic al 00 -60,000 TIMES Branch unit DAILY WITH capsule MEALS. lipase-prot 2021-07 Yes [id number] TAKE 1 Univers ease-amylas 1-17 CAPSULE BY it y of e (CREON) 00:00: MOUTH 3 [place] 12,000-38,0 00 (THREE) Medic al 00 -60,000 TIMES Branch unit DAILY WITH capsule MEALS. lipase-prot 2021-07 Yes [id number] TAKE 1 Univers ease-amylas 1-17 CAPSULE BY it y of e (CREON) 00:00: MOUTH 3 [place] 12,000-38,0 00 (THREE) Medic al 00 -60,000 TIMES Branch unit DAILY WITH capsule MEALS. lipase-prot 2021-07 Yes [id number] TAKE 1 Univers ease-amylas 1-17 CAPSULE BY it y of e (CREON) 00:00: MOUTH 3 [place] 12,000-38,0 00 (THREE) Medic al 00 -60,000 TIMES Branch unit DAILY WITH capsule MEALS. lipase-prot 2021-07 Yes [id number] TAKE 1 Univers ease-amylas 1-17 CAPSULE BY it y of e (CREON) 00:00: MOUTH 3 [place] 12,000-38,0 00 (THREE) Medic al 00 -60,000 TIMES Branch unit DAILY WITH capsule MEALS. lipase-prot 2021-07 Yes [id number] TAKE 1 Univers ease-amylas 1-17 CAPSULE BY it y of e (CREON) 00:00: MOUTH 3 [place] 12,000-38,0 00 (THREE) Medic al 00 -60,000 TIMES Branch unit DAILY WITH capsule MEALS. tadalafiL 2021-07 Yes [id number] TAKE ONE Univers 20 mg 1-10 (1) TABLET ity of tablet 00:00: BY MOUTH [place] 00 NEEDED Medical FOR Branch ERECTILE DYSFUNCTIO N. tadalafiL 2021-07 Yes [id number] TAKE ONE Univers 20 mg 1-10 (1) TABLET ity of tablet 00:00: BY MOUTH [place] 00 NEEDED Medical FOR Branch ERECTILE DYSFUNCTIO N. tadalafiL 2021- Yes [id number] TAKE ONE Univers 20 mg 1-10 (1) TABLET ity of tablet 00:00: BY MOUTH [place] 00 NEEDED Medical FOR Branch ERECTILE DYSFUNCTIO N. tadalafiL 2-1 Yes [id number] TAKE ONE Univers 20 mg 1-10 (1) TABLET ity of tablet 00:00: BY MOUTH [place] 00 NEEDED Medical FOR Branch ERECTILE DYSFUNCTIO N. tadalafiL 2-1 Yes [id number] TAKE ONE Univers 20 mg 1-10 (1) TABLET ity of tablet 00:00: BY MOUTH [place] 00 NEEDED Medical FOR Branch ERECTILE DYSFUNCTIO N. tadalafiL 2021-1 Yes [id number] TAKE ONE Univers 20 mg 1-10 (1) TABLET ity of tablet 00:00: BY MOUTH [place] 00 NEEDED Medical FOR Branch ERECTILE DYSFUNCTIO N. tadalafiL 2021-1 Yes [id number] TAKE ONE Univers 20 mg 1-10 (1) TABLET ity of tablet 00:00: BY MOUTH [place] 00 NEEDED Medical FOR Branch ERECTILE DYSFUNCTIO N. tadalafiL 2021- Yes [id number] TAKE ONE Univers 20 mg 1-10 (1) TABLET ity of tablet 00:00: BY MOUTH [place] 00 NEEDED Medical FOR Branch ERECTILE DYSFUNCTIO N. tadalafiL 2-1 Yes [id number] TAKE ONE Univers 20 mg 1-10 (1) TABLET ity of tablet 00:00: BY MOUTH [place] 00 NEEDED Medical FOR Branch ERECTILE DYSFUNCTIO N. tadalafiL 2-1 Yes [id number] TAKE ONE Univers 20 mg 1-10 (1) TABLET ity of tablet 00:00: BY MOUTH [place] 00 NEEDED Medical FOR Branch ERECTILE DYSFUNCTIO N. tadalafiL 2-1 Yes [id number] TAKE ONE Univers 20 mg 1-10 (1) TABLET ity of tablet 00:00: BY MOUTH [place] 00 NEEDED Medical FOR Branch ERECTILE DYSFUNCTIO N. tadalafiL 2-1 Yes [id number] TAKE ONE Univers 20 mg 1-10 (1) TABLET ity of tablet 00:00: BY MOUTH [place] 00 NEEDED Medical FOR Branch ERECTILE DYSFUNCTIO N. tadalafiL 2021-07 Yes [id number] TAKE ONE Univers 20 mg 1-10 (1) TABLET ity of tablet 00:00: BY MOUTH [place] 00 NEEDED Medical FOR Branch ERECTILE DYSFUNCTIO N. tadalafiL 2021-07 Yes [id number] TAKE ONE [facility] 20 mg 1-10 (1) TABLET [facility] tablet 00:00: BY MOUTH [place] 00 NEEDED Medical FOR Branch ERECTILE DYSFUNCTIO N. tadalafiL 2021-07 Yes [id number] TAKE ONE [facility] 20 mg 1-10 (1) TABLET [facility] tablet 00:00: BY MOUTH [place] 00 NEEDED Medical FOR Branch ERECTILE DYSFUNCTIO N. tadalafiL 2021-07 Yes [id number] TAKE ONE [facility] 20 mg 1-10 (1) TABLET [facility] tablet 00:00: BY MOUTH [place] 00 NEEDED Medical FOR Branch ERECTILE DYSFUNCTIO N. tadalafiL 2021-07 Yes [id number] TAKE ONE [facility] 20 mg 1-10 (1) TABLET [facility] tablet 00:00: BY MOUTH [place] 00 NEEDED Medical FOR Branch ERECTILE DYSFUNCTIO N. tadalafiL 2021-07 Yes [id number] TAKE ONE [facility] 20 mg 1-10 (1) TABLET [facility] tablet 00:00: BY MOUTH [place] 00 NEEDED Medical FOR Branch ERECTILE DYSFUNCTIO N. prednisoLON 2021-07 Yes [id number] 1[drp] Place 1 [facility] E acetate 08-07 [id number] Drop in ity o f (PRED 00:00: right eye [place] FORTE) 1 % 00 in the Medical ophthalmic morning Branch suspension and 1 Drop drops in the evening. prednisoLON 2021-07 Yes [id number] 1[drp] Place 1 [facility] E acetate 1-08 [id number] Drop in ity o f (PRED 00:00: right eye [place] FORTE) 1 % 00 in the Medical ophthalmic morning Branch suspension and 1 Drop drops in the evening. prednisoLON 2021-07 Yes [id number] 1[drp] Place 1 [facility] E acetate 1-08 [id number] Drop in ity o f (PRED 00:00: right eye [place] FORTE) 1 % 00 in the Medical ophthalmic morning Branch suspension and 1 Drop drops in the evening. prednisoLON 2021-07 Yes [id number] 1[drp] Place 1 [facility] E acetate 1-08 [id number] Drop in ity o f (PRED 00:00: right eye [place] FORTE) 1 % 00 in the Medical ophthalmic morning Branch suspension and 1 Drop drops in the evening. prednisoLON 2021-07 Yes [id number] 1[drp] Place 1 [facility] E acetate 1-08 [id number] Drop in ity o f (PRED 00:00: right eye [place] FORTE) 1 % 00 in the Medical ophthalmic morning Branch suspension and 1 Drop drops in the evening. prednisoLON 2021-07 Yes [id number] 1[drp] Place 1 [facility] E acetate 1-08 [id number] Drop in ity o f (PRED 00:00: right eye [place] FORTE) 1 % 00 in the Medical ophthalmic morning Branch suspension and 1 Drop drops in the evening. prednisoLON 2021-07 Yes [id number] 1[drp] Place 1 [facility] E acetate 1-08 [id number] Drop in ity o f (PRED 00:00: right eye [place] FORTE) 1 % 00 in the Medical ophthalmic morning Branch suspension and 1 Drop drops in the evening. prednisoLON 2021-07 Yes [id number] 1[drp] Place 1 [facility] E acetate 1-08 [id number] Drop in ity o f (PRED 00:00: right eye [place] FORTE) 1 % 00 in the Medical ophthalmic morning Branch suspension and 1 Drop drops in the evening. prednisoLON 2021-07 Yes [id number] 1[drp] Place 1 [facility] E acetate 1-08 [id number] Drop in ity o f (PRED 00:00: right eye [place] FORTE) 1 % 00 in the Medical ophthalmic morning Branch suspension and 1 Drop drops in the evening. prednisoLON 2021-07 Yes [id number] 1[drp] Place 1 [facility] E acetate 1-08 [id number] Drop in ity o f (PRED 00:00: right eye [place] FORTE) 1 % 00 in the Medical ophthalmic morning Branch suspension and 1 Drop drops in the evening. prednisoLON 2021-07 Yes [id number] 1[drp] Place 1 [facility] E acetate 1-08 [id number] Drop in ity o f (PRED 00:00: right eye [place] FORTE) 1 % 00 in the Medical ophthalmic morning Branch suspension and 1 Drop drops in the evening. prednisoLON 2021-07 Yes [id number] 1[drp] Place 1 [facility] E acetate 1-08 [id number] Drop in ity o f (PRED 00:00: right eye [place] FORTE) 1 % 00 in the Medical ophthalmic morning Branch suspension and 1 Drop drops in the evening. prednisoLON 2021-07 Yes [id number] 1[drp] Place 1 [facility] E acetate 1-08 [id number] Drop in ity o f (PRED 00:00: right eye [place] FORTE) 1 % 00 in the Medical ophthalmic morning Branch suspension and 1 Drop drops in the evening. prednisoLON 2021-07 Yes [id number] 1[drp] Place 1 [facility] E acetate 1-08 [id number] Drop in ity o f (PRED 00:00: right eye [place] FORTE) 1 % 00 in the Medical ophthalmic morning Branch suspension and 1 Drop drops in the evening. prednisoLON 2021-07 Yes [id number] 1[drp] Place 1 [facility] E acetate 1-08 [id number] Drop in ity o f (PRED 00:00: right eye [place] FORTE) 1 % 00 in the Medical ophthalmic morning Branch suspension and 1 Drop drops in the evening. prednisoLON 2021-07 Yes [id number] 1[drp] Place 1 [facility] E acetate 1-08 [id number] Drop in ity o f (PRED 00:00: right eye [place] FORTE) 1 % 00 in the Medical ophthalmic morning Branch suspension and 1 Drop drops in the evening. prednisoLON 2021-07 Yes [id number] 1[drp] Place 1 [facility] E acetate 1-08 [id number] Drop in ity o f (PRED 00:00: right eye [place] FORTE) 1 % 00 in the Medical ophthalmic morning Branch suspension and 1 Drop drops in the evening. prednisoLON 2021-07 Yes [id number] 1[drp] Place 1 [facility] E acetate 1-08 [id number] Drop in ity o f (PRED 00:00: right eye [place] FORTE) 1 % 00 in the Medical ophthalmic morning Branch suspension and 1 Drop drops in the evening. prednisoLON 2021-07 Yes [id number] 1[drp] Place 1 [facility] E acetate 1-08 [id number] Drop in ity o f (PRED 00:00: right eye [place] FORTE) 1 % 00 in the Medical ophthalmic morning Branch suspension and 1 Drop drops in the evening. LOVASTATIN 2021-07 Yes TAKE 1 [facility] 20 mg 1-04 TABLET BY [facility] tablet 00:00: MOUTH 00 EVERYDAY Medical AT BEDTIME [place] LOVASTATIN 2021-07 Yes TAKE 1 [facility] 20 mg 1-04 TABLET BY [facility] of tablet 00:00: MOUTH EVERYDAY Medical AT BEDTIME [place] LOVASTATIN 2021-07 Yes TAKE 1 [facility] 20 mg 1-04 TABLET BY [facility] tablet 00:00: MOUTH EVERYDAY Medical AT BEDTIME [place] LOVASTATIN 2021-07 Yes TAKE 1 [facility] 20 mg 1-04 TABLET BY [facility] tablet 00:00: MOUTH EVERYDAY Medical AT BEDTIME [place] LOVASTATIN 2021-07 Yes TAKE 1 [facility] 20 mg 1-04 TABLET BY [facility] of tablet 00:00: MOUTH EVERYDAY Medical AT BEDTIME [place] LOVASTATIN 2021-07 Yes TAKE 1 [facility] 20 mg 1-04 TABLET BY [facility] of tablet 00:00: MOUTH EVERYDAY Medical AT BEDTIME [place] LOVASTATIN 2021-07 Yes TAKE 1 [facility] 20 mg 1-04 TABLET BY [facility] of tablet 00:00: MOUTH EVERYDAY Medical AT BEDTIME [place] LOVASTATIN 2021-07 Yes TAKE 1 [facility] 20 mg 1-04 TABLET BY [facility] of tablet 00:00: MOUTH 00 EVERYDAY Medical AT BEDTIME [place] LOVASTATIN 2021-07 Yes TAKE 1 [facility] 20 mg 1-04 TABLET BY [facility] tablet 00:00: MOUTH EVERYDAY Medical AT BEDTIME [place] LOVASTATIN 2021-07 Yes TAKE 1 [facility] 20 mg 1-04 TABLET BY [facility] of tablet 00:00: MOUTH EVERYDAY Medical AT BEDTIME [place] LOVASTATIN 2021-07 Yes TAKE 1 [facility] 20 mg 1-04 TABLET BY [facility] tablet 00:00: MOUTH EVERYDAY Medical AT BEDTIME [place] LOVASTATIN 2021-07 Yes TAKE 1 [facility] 20 mg 1-04 TABLET BY [facility] of tablet 00:00: MOUTH 00 EVERYDAY Medical AT BEDTIME [place] LOVASTATIN 2021-07 Yes TAKE 1 [facility] 20 mg 1-04 TABLET BY [facility] of tablet 00:00: MOUTH 00 EVERYDAY Medical AT BEDTIME [place] LOVASTATIN 2021-07 Yes TAKE 1 [facility] 20 mg 1-04 TABLET BY [facility] tablet 00:00: MOUTH [place] 00 EVERYDAY Medical AT BEDTIME Branch LOVASTATIN 2021-07 Yes TAKE 1 [facility] 20 mg 1-04 TABLET BY [facility] tablet 00:00: MOUTH [place] 00 EVERYDAY Medical AT BEDTIME Branch LOVASTATIN 2021-07 Yes TAKE 1 [facility] 20 mg 1-04 TABLET BY [facility] tablet 00:00: MOUTH [place] 00 EVERYDAY Medical AT BEDTIME Branch LOVASTATIN 2021-07 Yes TAKE 1 [facility] 20 mg 1-04 TABLET BY [facility] of tablet 00:00: MOUTH [place] 00 EVERYDAY Medical AT BEDTIME Branch LOVASTATIN 2021-07 Yes TAKE 1 [facility] 20 mg 1-04 TABLET BY [facility] tablet 00:00: MOUTH [place] 00 EVERYDAY Medical AT BEDTIME Branch LOVASTATIN 2021-07 Yes TAKE 1 [facility] 20 mg 1-04 TABLET BY [facility] tablet 00:00: MOUTH [place] 00 EVERYDAY Medical AT BEDTIME Branch LOVASTATIN 2021-07 Yes TAKE 1 [facility] 20 mg 1-04 TABLET BY [facility] tablet 00:00: MOUTH [place] 00 EVERYDAY Medical AT BEDTIME Branch LOVASTATIN 2021-07 Yes TAKE 1 [facility] 20 mg 1-04 TABLET BY [facility] tablet 00:00: MOUTH [place] 00 EVERYDAY Medical AT BEDTIME Branch HYDROcodone 2021-07 Yes [id number] 1{tbl} Take 1 [facility] -acetaminop 0-27 tablet by [facility] of hen 7.5-325 00:00: mouth [place] mg per 00 every 6 Medical tablet (six) Branch hours as needed for Pain. Indication s: chronic pain HYDROcodone 2021-07 Yes 2745 1{tbl} Take 1 [facility] -acetaminop 0-27 tablet by [facility] of hen 7.5-325 00:00: mouth [place] mg per 00 every 6 Medical tablet (six) Branch hours as needed for Pain. Indication s: chronic pain HYDROcodone 2021-07 Yes 2745 1{tbl} Take 1 [facility] -acetaminop 0-27 tablet by [facility] of hen 7.5-325 00:00: mouth [place] mg per 00 every 6 Medical tablet (six) Branch hours as needed for Pain. Indication s: chronic pain HYDROcodone 2021-07 Yes 2745 1{tbl} Take 1 [facility] -acetaminop 0-27 tablet by [facility] of hen 7.5-325 00:00: mouth [place] mg per 00 every 6 Medical tablet (six) Branch hours as needed for Pain. Indication s: chronic pain HYDROcodone 2021-07 Yes 2745 1{tbl} Take 1 [facility] -acetaminop 0-27 tablet by [facility] of hen 7.5-325 00:00: mouth [place] mg per 00 every 6 Medical tablet (six) Branch hours as needed for Pain. Indication s: chronic pain HYDROcodone 2021-07 Yes 2745 1{tbl} Take 1 [facility] -acetaminop 0-27 tablet by [facility] of hen 7.5-325 00:00: mouth [place] mg per 00 every 6 Medical tablet (six) Branch hours as needed for Pain. Indication s: chronic pain HYDROcodone 2021-07 Yes 2745 1{tbl} Take 1 [facility] -acetaminop 0-27 tablet by [facility] of hen 7.5-325 00:00: mouth [place] mg per 00 every 6 Medical tablet (six) Branch hours as needed for Pain. Indication s: chronic pain HYDROcodone 2021-07- No 2745 1{tbl} Take 1 [facility] -acetaminop 0-27 11-28 tablet by it y of hen 7.5-325 00:00: 00:00 [place] mg per 00 :00 every 6 Medical tablet (six) Branch hours as needed for Pain. Indication s: chronic pain CYCLOBENZAP 2021-07 Yes [id number] TAKE 1 [facility] RINE 10 mg 0-24 TABLET BY [facility] of tablet 00:00: MOUTH [place] 00 THREE Medical TIMES A Branch DAY NEEDED FOR MUSCLE SPASMS CYCLOBENZAP 2021-07 Yes [id number] TAKE 1 [facility] RINE 10 mg 0-24 TABLET BY [facility] of tablet 00:00: MOUTH [place] 00 THREE Medical TIMES A Branch DAY NEEDED FOR MUSCLE SPASMS CYCLOBENZAP 2021-07 Yes [id number] TAKE 1 [facility] RINE 10 mg 0-24 TABLET BY [facility] of tablet 00:00: MOUTH [place] 00 THREE Medical TIMES A Branch DAY NEEDED FOR MUSCLE SPASMS CYCLOBENZAP 2021-07 Yes [id number] TAKE 1 [facility] RINE 10 mg 0-24 TABLET BY [facility] of tablet 00:00: MOUTH [place] 00 THREE Medical TIMES A Branch DAY NEEDED FOR MUSCLE SPASMS CYCLOBENZAP 2021-07 Yes [id number] TAKE 1 [facility] RINE 10 mg 0-24 TABLET BY [facility] of tablet 00:00: MOUTH [place] 00 THREE Medical TIMES A Branch DAY NEEDED FOR MUSCLE SPASMS CYCLOBENZAP 2021-07 Yes [id number] TAKE 1 [facility] RINE 10 mg 0-24 TABLET BY [facility] of tablet 00:00: MOUTH [place] 00 THREE Medical TIMES A Branch DAY NEEDED FOR MUSCLE SPASMS CYCLOBENZAP 1 Yes [id number] TAKE 1 [facility] RINE 10 mg 0-24 TABLET BY [facility] of tablet 00:00: MOUTH [place] 00 THREE Medical TIMES A Branch DAY NEEDED FOR MUSCLE SPASMS CYCLOBENZAP 2021-07 2022- No [id number] TAKE 1 [facility] RINE 10 mg 0-24 11-23 TABLET BY [facility] of tablet 00:00: 00:00 MOUTH [place] 00 :00 THREE Medical TIMES A Branch DAY NEEDED FOR MUSCLE SPASMS amLODIPine 2021-07 Yes [id number] 5mg Take 1 [facility] 5 mg tablet 0-18 tablet by ity of 00:00: mouth in [place] the Medical morning. Branch amLODIPine 2021-07 Yes [id number] 5mg Take 1 [facility] 5 mg tablet 0-18 tablet by ity of 00:00: mouth in [place] the Medical morning. Branch amLODIPine 2021-07 Yes [id number] 5mg Take 1 [facility] 5 mg tablet 0-18 tablet by ity of 00:00: mouth in [place] the Medical morning. Branch amLODIPine 2021- Yes [id number] 5mg Take 1 [facility] 5 mg tablet 0-18 tablet by ity of 00:00: mouth in [place] the Medical morning. Branch amLODIPine 2021- Yes [id number] 5mg Take 1 [facility] 5 mg tablet 0-18 tablet by ity of 00:00: mouth in [place] the Medical morning. Branch amLODIPine 2021-1 Yes [id number] 5mg Take 1 [facility] 5 mg tablet 0-18 tablet by ity of 00:00: mouth in [place] the Medical morning. Branch amLODIPine 2021-1 Yes [id number] 5mg Take 1 [facility] 5 mg tablet 0-18 tablet by ity of 00:00: mouth in [place] the Medical morning. Branch amLODIPine 2021-1 Yes [id number] 5mg Take 1 [facility] 5 mg tablet 0-18 tablet by ity of 00:00: mouth in [place] the Medical morning. Branch amLODIPine 2021-07 Yes [id number] 5mg Take 1 [facility] 5 mg tablet 0-18 tablet by ity of 00:00: mouth in [place] the Medical morning. Branch amLODIPine 2021-07 Yes [id number] 5mg Take 1 [facility] 5 mg tablet 0-18 tablet by ity of 00:00: mouth in [place] the Medical morning. Branch amLODIPine 2021-07 Yes [id number] 5mg Take 1 [facility] 5 mg tablet 0-18 tablet by ity of 00:00: mouth in [place] the Medical morning. Branch amLODIPine 2021-07 Yes [id number] 5mg Take 1 [facility] 5 mg tablet 0-18 tablet by ity of 00:00: mouth in [place] the Medical morning. Branch amLODIPine 2021- Yes [id number] 5mg Take 1 [facility] 5 mg tablet 0-18 tablet by ity of 00:00: mouth in [place] the Medical morning. Branch amLODIPine 2021-07 Yes [id number] 5mg Take 1 [facility] 5 mg tablet 0-18 tablet by ity of 00:00: mouth in [place] the Medical morning. Branch amLODIPine 2021-07 Yes [id number] 5mg Take 1 [facility] 5 mg tablet 0-18 tablet by ity of 00:00: mouth in [place] the Medical morning. Branch amLODIPine 2021-07 Yes [id number] 5mg Take 1 [facility] 5 mg tablet 0-18 tablet by ity of 00:00: mouth in [place] the Medical morning. Branch amLODIPine 2021- Yes [id number] 5mg Take 1 [facility] 5 mg tablet 0-18 tablet by ity of 00:00: mouth in [place] the Medical morning. Branch amLODIPine 2021-07 Yes [id number] 5mg Take 1 [facility] 5 mg tablet 0-18 tablet by ity of 00:00: mouth in [place] the Medical morning. Branch amLODIPine 2021-2021- No [id number] 5mg Take 1 [facility] 5 mg tablet 0-18 12-15 tablet by it y of 00:00: 00:00 mouth in [place] 00 :00 the Medical morning. Branch amLODIPine 2021-2021- No [id number] 5mg Take 1 [facility] 5 mg tablet 0-18 12-15 tablet by it y of 00:00: 00:00 mouth in [place] 00 :00 the Medical morning. Branch NAPROXEN 2021-07 Yes [id number] TAKE BY [facility] 500 mg 0-13 [id number] MOUTH 1 [facility] of tablet 00:00: TABLET IN [place] 00 MORNING Medical AND IN THE Branch EVENING WITH MEALS NAPROXEN 2021-07 Yes [id number] TAKE BY [facility] 500 mg 0-13 [id number] MOUTH 1 [facility] of tablet 00:00: TABLET IN [place] 00 MORNING Medical AND IN THE Branch EVENING WITH MEALS NAPROXEN 2021-07 Yes [id number] TAKE BY [facility] 500 mg 0-13 [id number] MOUTH 1 [facility] of tablet 00:00: TABLET IN [place] 00 MORNING Medical AND IN THE Branch EVENING WITH MEALS NAPROXEN 2021-07 Yes [id number] TAKE BY [facility] 500 mg 0-13 [id number] MOUTH 1 [facility] of tablet 00:00: TABLET IN [place] 00 MORNING Medical AND IN THE Branch EVENING WITH MEALS NAPROXEN 2021-07 Yes [id number] TAKE BY [facility] 500 mg 0-13 [id number] MOUTH 1 [facility] of tablet 00:00: TABLET IN [place] 00 MORNING Medical AND IN THE Branch EVENING WITH MEALS NAPROXEN 2021-07 Yes [id number] TAKE BY [facility] 500 mg 0-13 [id number] MOUTH 1 [facility] of tablet 00:00: TABLET IN [place] 00 MORNING Medical AND IN THE Branch EVENING WITH MEALS NAPROXEN 2021-07 Yes [id number] TAKE BY [facility] 500 mg 0-13 [id number] MOUTH 1 [facility] of tablet 00:00: TABLET IN [place] 00 MORNING Medical AND IN THE Branch EVENING WITH MEALS NAPROXEN 2021-07 Yes [id number] TAKE BY [facility] 500 mg 0-13 [id number] MOUTH 1 [facility] of tablet 00:00: TABLET IN [place] 00 MORNING Medical AND IN THE Branch EVENING WITH MEALS NAPROXEN 2021-07 Yes [id number] TAKE BY [facility] 500 mg 0-13 [id number] MOUTH 1 [facility] of tablet 00:00: TABLET IN [place] 00 MORNING Medical AND IN THE Branch EVENING WITH MEALS NAPROXEN 2021-07 Yes [id number] TAKE BY [facility] 500 mg 0-13 [id number] MOUTH 1 [facility] of tablet 00:00: TABLET IN [place] 00 MORNING Medical AND IN THE Branch EVENING WITH MEALS NAPROXEN 2021-07 Yes [id number] TAKE BY [facility] 500 mg 0-13 [id number] MOUTH 1 [facility] of tablet 00:00: TABLET IN [place] 00 MORNING Medical AND IN THE Branch EVENING WITH MEALS NAPROXEN 2021-07 Yes [id number] TAKE BY [facility] 500 mg 0-13 [id number] MOUTH 1 [facility] of tablet 00:00: TABLET IN [place] 00 MORNING Medical AND IN THE Branch EVENING WITH MEALS NAPROXEN 2021-07 Yes [id number] TAKE BY [facility] 500 mg 0-13 [id number] MOUTH 1 [facility] of tablet 00:00: TABLET IN [place] 00 MORNING Medical AND IN THE Branch EVENING WITH MEALS NAPROXEN 2021-07 Yes [id number] TAKE BY [facility] 500 mg 0-13 [id number] MOUTH 1 [facility] of tablet 00:00: TABLET IN [place] 00 MORNING Medical AND IN THE Branch EVENING WITH MEALS NAPROXEN 2021-07 Yes [id number] TAKE BY [facility] 500 mg 0-13 [id number] MOUTH 1 [facility] of tablet 00:00: TABLET IN [place] 00 MORNING Medical AND IN THE Branch EVENING WITH MEALS NAPROXEN 2021-07 Yes [id number] TAKE BY [facility] 500 mg 0-13 [id number] MOUTH 1 [facility] of tablet 00:00: TABLET IN [place] 00 MORNING Medical AND IN THE Branch EVENING WITH MEALS NAPROXEN 2021-07 Yes [id number] TAKE BY [facility] 500 mg 0-13 [id number] MOUTH 1 [facility] of tablet 00:00: TABLET IN [place] 00 MORNING Medical AND IN THE Branch EVENING WITH MEALS NAPROXEN 2021-07 Yes [id number] TAKE BY [facility] 500 mg 0-13 [id number] MOUTH 1 [facility] of tablet 00:00: TABLET IN [place] 00 MORNING Medical AND IN THE Branch EVENING WITH MEALS NAPROXEN 2021-07 Yes [id number] TAKE BY [facility] 500 mg 0-13 [id number] MOUTH 1 [facility] of tablet 00:00: TABLET IN [place] 00 MORNING Medical AND IN THE Branch EVENING WITH MEALS NAPROXEN 2021-07 No [id number] TAKE BY [facility] 500 mg 0-13 12-01 [id number] MOUTH 1 [facility] of tablet 00:00: 00:00 TABLET IN [place] 00 :00 MORNING Medical AND IN THE Branch EVENING WITH MEALS LOSARTAN 2021-07 Yes TAKE 1 [facility] 100 mg 0-07 TABLET BY [facility] of tablet 00:00: MOUTH [place] 00 EVERY DAY Medical Branch LOSARTAN 2021-07 Yes TAKE 1 [facility] 100 mg 0-07 TABLET BY [facility] of tablet 00:00: MOUTH [place] 00 EVERY DAY Medical Branch LOSARTAN 2022-1 Yes TAKE 1 [facility] 100 mg 0-07 TABLET BY [facility] of tablet 00:00: MOUTH [place] 00 EVERY DAY Medical Branch LOSARTAN 2021- Yes TAKE 1 [facility] 100 mg 0-07 TABLET BY [facility] of tablet 00:00: MOUTH [place] 00 EVERY DAY Medical Branch LOSARTAN 2021- Yes TAKE 1 [facility] 100 mg 0-07 TABLET BY [facility] of tablet 00:00: MOUTH [place] 00 EVERY DAY Medical Branch LOSARTAN 2021- Yes TAKE 1 [facility] 100 mg 0-07 TABLET BY [facility] of tablet 00:00: MOUTH [place] 00 EVERY DAY Medical Branch LOSARTAN 2021- Yes TAKE 1 [facility] 100 mg 0-07 TABLET BY [facility] of tablet 00:00: MOUTH [place] 00 EVERY DAY Medical Branch LOSARTAN 2021- Yes TAKE 1 [facility] 100 mg 0-07 TABLET BY [facility] of tablet 00:00: MOUTH [place] 00 EVERY DAY Medical Branch LOSARTAN 2021- Yes TAKE 1 [facility] 100 mg 0-07 TABLET BY [facility] of tablet 00:00: MOUTH [place] 00 EVERY DAY Medical Branch LOSARTAN 2021- Yes TAKE 1 [facility] 100 mg 0-07 TABLET BY [facility] of tablet 00:00: MOUTH [place] 00 EVERY DAY Medical Branch LOSARTAN 2021- Yes TAKE 1 [facility] 100 mg 0-07 TABLET BY [facility] of tablet 00:00: MOUTH [place] 00 EVERY DAY Medical Branch LOSARTAN 2021- Yes TAKE 1 [facility] 100 mg 0-07 TABLET BY [facility] of tablet 00:00: MOUTH [place] 00 EVERY DAY Medical Branch LOSARTAN 2021- Yes TAKE 1 [facility] 100 mg 0-07 TABLET BY [facility] of tablet 00:00: MOUTH [place] 00 EVERY DAY Medical Branch LOSARTAN 2021- Yes TAKE 1 [facility] 100 mg 0-07 TABLET BY [facility] of tablet 00:00: MOUTH [place] 00 EVERY DAY Medical Branch LOSARTAN 2021- Yes TAKE 1 [facility] 100 mg 0-07 TABLET BY [facility] of tablet 00:00: MOUTH [place] 00 EVERY DAY Medical Branch LOSARTAN 2021- Yes TAKE 1 [facility] 100 mg 0-07 TABLET BY [facility] of tablet 00:00: MOUTH [place] 00 EVERY DAY Medical Branch LOSARTAN 2021- Yes TAKE 1 [facility] 100 mg 0-07 TABLET BY [facility] of tablet 00:00: MOUTH [place] 00 EVERY DAY Medical Branch LOSARTAN 2021- Yes TAKE 1 [facility] 100 mg 0-07 TABLET BY [facility] of tablet 00:00: MOUTH [place] 00 EVERY DAY Medical Branch LOSARTAN 2021- Yes TAKE 1 [facility] 100 mg 0-07 TABLET BY ity of tablet 00:00: MOUTH [place] 00 EVERY DAY Medical Branch LOSARTAN 2021-07 Yes TAKE 1 [facility] 100 mg 0-07 TABLET BY ity of tablet 00:00: MOUTH [place] 00 EVERY DAY Medical Branch LOSARTAN 2021-07 Yes TAKE 1 [facility] 100 mg 0-07 TABLET BY [facility] of tablet 00:00: MOUTH [place] 00 EVERY DAY Medical Branch LOSARTAN 2021-07 Yes TAKE 1 [facility] 100 mg 0-07 TABLET BY [facility] of tablet 00:00: MOUTH [place] 00 EVERY DAY Medical Branch LOSARTAN 2021-07 Yes TAKE 1 [facility] 100 mg 0-07 TABLET BY [facility]y of tablet 00:00: MOUTH [place] 00 EVERY DAY Medical Branch LOSARTAN 2021-07 Yes TAKE 1 [facility] 100 mg 0-07 TABLET BY ity of tablet 00:00: MOUTH [place] 00 EVERY DAY Medical Branch LOSARTAN 2021-07 Yes TAKE 1 [facility] 100 mg 0-07 TABLET BY [facility] of tablet 00:00: MOUTH [place] 00 EVERY DAY Medical Branch LOSARTAN 2021-07 Yes TAKE 1 [facility] 100 mg 0-07 TABLET BY ity of tablet 00:00: MOUTH [place] 00 EVERY DAY Medical Branch LOSARTAN 2021-07 Yes TAKE 1 [facility] 100 mg 0-07 TABLET BY ity of tablet 00:00: MOUTH [place] 00 EVERY DAY Medical Branch LOSARTAN 2021-07 Yes TAKE 1 [facility] 100 mg 0-07 TABLET BY [facility]y of tablet 00:00: MOUTH [place] 00 EVERY DAY Medical Branch LOSARTAN 2021-07 Yes TAKE 1 [facility] 100 mg 0-07 TABLET BY [facility] of tablet 00:00: MOUTH [place] 00 EVERY DAY Medical Branch LOSARTAN 2021-07 Yes TAKE 1 [facility] 100 mg 0-07 TABLET BY [facility] of tablet 00:00: MOUTH [place] 00 EVERY DAY Medical Branch LOSARTAN 2021-07 Yes TAKE 1 [facility] 100 mg 0-07 TABLET BY [facility]y of tablet 00:00: MOUTH [place] 00 EVERY DAY Medical Branch LOSARTAN 2021-07 Yes TAKE 1 [facility] 100 mg 0-07 TABLET BY [facility]y of tablet 00:00: MOUTH [place] 00 EVERY DAY Medical Branch LOSARTAN 2021-07 Yes TAKE 1 [facility] 100 mg 0-07 TABLET BY ity of tablet 00:00: MOUTH [place] 00 EVERY DAY Medical Branch HYDROcodone 0 Yes 2745 1{tbl} Take 1 [facility] -acetaminop 9-28 tablet by [facility] of hen 7.5-325 00:00: mouth [place] mg per 00 every 6 Medical tablet (six) Branch hours as needed for Pain. Indication s: chronic pain HYDROcodone 2021-0 Yes 2745 1{tbl} Take 1 [facility] -acetaminop 9-28 tablet by [facility] of hen 7.5-325 00:00: mouth [place] mg per 00 every 6 Medical tablet (six) Branch hours as needed for Pain. Indication s: chronic pain HYDROcodone 2021-0 Yes 2745 1{tbl} Take 1 [facility] -acetaminop 9-28 tablet by [facility] of hen 7.5-325 00:00: mouth [place] mg per 00 every 6 Medical tablet (six) Branch hours as needed for Pain. Indication s: chronic pain HYDROcodone 2021-0 Yes 2745 1{tbl} Take 1 [facility] -acetaminop 9-28 tablet by [facility] of hen 7.5-325 00:00: mouth [place] mg per 00 every 6 Medical tablet (six) Branch hours as needed for Pain. Indication s: chronic pain HYDROcodone 2021-0 Yes 2745 1{tbl} Take 1 [facility] -acetaminop 9-28 tablet by [facility]y of hen 7.5-325 00:00: mouth [place] mg per 00 every 6 Medical tablet (six) Branch hours as needed for Pain. Indication s: chronic pain HYDROcodone 2021-0 Yes 2745 1{tbl} Take 1 [facility] -acetaminop 9-28 tablet by [facility] of hen 7.5-325 00:00: mouth [place] mg per 00 every 6 Medical tablet (six) Branch hours as needed for Pain. Indication s: chronic pain HYDROcodone 2021-0 Yes 2745 1{tbl} Take 1 [facility] -acetaminop 9-28 tablet by [facility]y of hen 7.5-325 00:00: mouth [place] mg per 00 every 6 Medical tablet (six) Branch hours as needed for Pain. Indication s: chronic pain HYDROcodone 2021-0 Yes 2745 1{tbl} Take 1 [facility] -acetaminop 9-28 tablet by [facility] of hen 7.5-325 00:00: mouth [place] mg per 00 every 6 Medical tablet (six) Branch hours as needed for Pain. Indication s: chronic pain HYDROcodone 2021-0 Yes 2745 1{tbl} Take 1 [facility] -acetaminop 9-28 tablet by [facility]y of hen 7.5-325 00:00: mouth [place] mg per 00 every 6 Medical tablet (six) Branch hours as needed for Pain. Indication s: chronic pain HYDROcodone Yes 2745 1{tbl} Take 1 [facility] -acetaminop 9-28 tablet by [facility] of hen 7.5-325 00:00: mouth [place] mg per 00 every 6 Medical tablet (six) Branch hours as needed for Pain. Indication s: chronic pain HYDROcodone Yes 2745 1{tbl} Take 1 [facility] -acetaminop 9-28 tablet by [facility] of hen 7.5-325 00:00: mouth [place] mg per 00 every 6 Medical tablet (six) Branch hours as needed for Pain. Indication s: chronic pain HYDROcodone Yes 2745 1{tbl} Take 1 [facility] -acetaminop 9-28 tablet by [facility] of hen 7.5-325 00:00: mouth [place] mg per 00 every 6 Medical tablet (six) Branch hours as needed for Pain. Indication s: chronic pain HYDROcodone 2021- No 2745 1{tbl} Take 1 [facility] -acetaminop 9-28 10-27 tablet by it y of hen 7.5-325 00:00: 00:00 [place] mg per 00 :00 every 6 Medical tablet (six) Branch hours as needed for Pain. Indication s: chronic pain [place] 2021- No [id number] 42.7mCi 42.7 [facility] 99m-tetrofo 04-21 millicurie i ty of smin 15:30: 15:20 , [place] (MYOVIEW) 00 :00 Intravenou Medi lisa injection s, ONCE, 1 Bran ch 42.7 dose, On millicurie Bridget 04/21/22 at 1030, Routine regadenoson 2021- No [id number] .4mg 0.4 mg, IV [facility] (LEXISCAN) 04-21 Push, ity of injection 15:15: 15:22 ONCE, 1 [place] 0.4 mg 00 :00 dose, On Medical Bridget Branch 04/21/22 at 1015, Routine
store team member approving Restricted medication : CHINTAN RICHARDS tc 2021-0 2022- No [id number] 16mCi 16 [facility] 99m-tetrofo 04-21 [facility] 13:45: 13:38 , [place] (MYOVIEW) 00 :00 Intravenou Medi lisa injection s, ONCE, 1 Bran ch 16 dose, On millicurie Bridget 04/21/22 at 0845, Routine GABAPENTIN 2022-0 Yes TAKE 1 Unive rs 400 mg 9-21 CAPSULE BY ity of capsule 00:00: MOUTH [place] 00 THREE Medical TIMES A Branch DAY CYCLOBENZAP 2022-0 Yes [id number] TAKE 1 Univers RINE 10 mg 9-21 TABLET BY ity of tablet 00:00: [facility] 00 THREE Medical TIMES A Branch DAY NEEDED FOR MUSCLE SPASMS GABAPENTIN 2022-0 Yes TAKE 1 Unive rs 400 mg 9-21 CAPSULE BY ity of capsule 00:00: MOUTH [place] 00 THREE Medical TIMES A Branch DAY CYCLOBENZAP 2022-0 Yes [id number] TAKE 1 [facility] RINE 10 mg 9-21 TABLET BY ity of tablet 00:00: MOUTH [place] 00 THREE Medical TIMES A Branch DAY NEEDED FOR MUSCLE SPASMS GABAPENTIN 2022-0 Yes TAKE 1 Unive rs 400 mg 9-21 CAPSULE BY ity of capsule 00:00: MOUTH [place] 00 THREE Medical TIMES A Branch DAY CYCLOBENZAP 2022-0 Yes [id number] TAKE 1 [facility] RINE 10 mg 9-21 TABLET BY ity of tablet 00:00: MOUTH [place] 00 THREE Medical TIMES A Branch DAY NEEDED FOR MUSCLE SPASMS GABAPENTIN 2022-0 Yes TAKE 1 Unive rs 400 mg 9-21 CAPSULE BY ity of capsule 00:00: MOUTH [place] 00 THREE Medical TIMES A Branch DAY CYCLOBENZAP 2022-0 Yes [id number] TAKE 1 [facility] RINE 10 mg 9-21 TABLET BY ity of tablet 00:00: [facility] 00 THREE Medical TIMES A Branch DAY NEEDED FOR MUSCLE SPASMS GABAPENTIN 2022-0 Yes TAKE 1 Unive rs 400 mg 9-21 CAPSULE BY ity of capsule 00:00: [facility] 00 THREE Medical TIMES A Branch DAY CYCLOBENZAP 2022-0 Yes [id number] TAKE 1 [facility] RINE 10 mg 9-21 TABLET BY ity of tablet 00:00: [facility] 00 THREE Medical TIMES A Branch DAY NEEDED FOR MUSCLE SPASMS GABAPENTIN 2022-0 Yes TAKE 1 Unive rs 400 mg 9-21 CAPSULE BY ity of capsule 00:00: MOUTH 00 THREE Medical TIMES A Branch DAY CYCLOBENZAP 2022-0 Yes [id number] TAKE 1 [facility] RINE 10 mg 9-21 TABLET BY ity of tablet 00:00: MOUTH 00 THREE Medical TIMES A Branch DAY NEEDED FOR MUSCLE SPASMS GABAPENTIN 2022-0 Yes TAKE 1 Unive rs 400 mg 9-21 CAPSULE BY ity of capsule 00:00: MOUTH 00 THREE Medical TIMES A Branch DAY CYCLOBENZAP 2022-0 Yes [id number] TAKE 1 [facility] RINE 10 mg 9-21 TABLET BY ity of tablet 00:00: MOUTH 00 THREE Medical TIMES A Branch DAY NEEDED FOR MUSCLE SPASMS GABAPENTIN 2022-0 Yes TAKE 1 Unive rs 400 mg 9-21 CAPSULE BY ity of capsule 00:00: MOUTH 00 THREE Medical TIMES A Branch DAY CYCLOBENZAP 2022-0 Yes [id number] TAKE 1 [facility] RINE 10 mg 9-21 TABLET BY ity of tablet 00:00: MOUTH 00 THREE Medical TIMES A Branch DAY NEEDED FOR MUSCLE SPASMS GABAPENTIN 2022-0 Yes TAKE 1 Unive rs 400 mg 9-21 CAPSULE BY ity of capsule 00:00: MOUTH 00 THREE Medical TIMES A Branch DAY CYCLOBENZAP 2022-0 Yes [id number] TAKE 1 [facility] RINE 10 mg 9-21 TABLET BY ity of tablet 00:00: MOUTH 00 THREE Medical TIMES A Branch DAY NEEDED FOR MUSCLE SPASMS GABAPENTIN 2022-0 Yes TAKE 1 Unive rs 400 mg 9-21 CAPSULE BY ity of capsule 00:00: MOUTH 00 THREE Medical TIMES A Branch DAY CYCLOBENZAP 2022-0 Yes [id number] TAKE 1 [facility] RINE 10 mg 9-21 TABLET BY ity of tablet 00:00: MOUTH 00 THREE Medical TIMES A Branch DAY NEEDED FOR MUSCLE SPASMS GABAPENTIN 2022-0 Yes TAKE 1 Unive rs 400 mg 9-21 CAPSULE BY ity of capsule 00:00: MOUTH 00 THREE Medical TIMES A Branch DAY CYCLOBENZAP 2022-0 Yes [id number] TAKE 1 [facility] RINE 10 mg 9-21 TABLET BY ity of tablet 00:00: MOUTH 00 THREE Medical TIMES A Branch DAY NEEDED FOR MUSCLE SPASMS GABAPENTIN 2022-0 Yes TAKE 1 Unive rs 400 mg 9-21 CAPSULE BY ity of capsule 00:00: MOUTH [place] 00 THREE Medical TIMES A Branch DAY CYCLOBENZAP 2022-0 Yes [id number] TAKE 1 [facility] RINE 10 mg 9-21 TABLET BY ity of tablet 00:00: MOUTH 00 THREE Medical TIMES A Branch DAY NEEDED FOR MUSCLE SPASMS GABAPENTIN 2022-0 Yes TAKE 1 Unive rs 400 mg 9-21 CAPSULE BY ity of capsule 00:00: MOUTH 00 THREE Medical TIMES A Branch DAY CYCLOBENZAP 2022-0 Yes [id number] TAKE 1 [facility] RINE 10 mg 9-21 TABLET BY ity of tablet 00:00: MOUTH 00 THREE Medical TIMES A Branch DAY NEEDED FOR MUSCLE SPASMS GABAPENTIN 2022-0 Yes TAKE 1 Unive rs 400 mg 9-21 CAPSULE BY ity of capsule 00:00: MOUTH 00 THREE Medical TIMES A Branch DAY CYCLOBENZAP 2022-0 Yes [id number] TAKE 1 [facility] RINE 10 mg 9-21 TABLET BY ity of tablet 00:00: MOUTH 00 THREE Medical TIMES A Branch DAY NEEDED FOR MUSCLE SPASMS GABAPENTIN 2022-0 Yes TAKE 1 Unive rs 400 mg 9-21 CAPSULE BY ity of capsule 00:00: MOUTH 00 THREE Medical TIMES A Branch DAY CYCLOBENZAP 2022-0 Yes [id number] TAKE 1 [facility] RINE 10 mg 9-21 TABLET BY ity of tablet 00:00: MOUTH 00 THREE Medical TIMES A Branch DAY NEEDED FOR MUSCLE SPASMS GABAPENTIN 2022-0 Yes TAKE 1 Unive rs 400 mg 9-21 CAPSULE BY ity of capsule 00:00: MOUTH 00 THREE Medical TIMES A Branch DAY CYCLOBENZAP 2022-0 Yes [id number] TAKE 1 [facility] RINE 10 mg 9-21 TABLET BY ity of tablet 00:00: MOUTH 00 THREE Medical TIMES A Branch DAY NEEDED FOR MUSCLE SPASMS GABAPENTIN 2022-0 Yes TAKE 1 Unive rs 400 mg 9-21 CAPSULE BY ity of capsule 00:00: MOUTH 00 THREE Medical TIMES A Branch DAY CYCLOBENZAP 2022-0 Yes [id number] TAKE 1 [facility] RINE 10 mg 9-21 TABLET BY ity of tablet 00:00: MOUTH 00 THREE Medical TIMES A Branch DAY NEEDED FOR MUSCLE SPASMS GABAPENTIN 2022-0 Yes TAKE 1 Unive rs 400 mg 9-21 CAPSULE BY ity of capsule 00:00: MOUTH 00 THREE Medical TIMES A Branch DAY CYCLOBENZAP 2022-0 Yes [id number] TAKE 1 [facility] RINE 10 mg 9-21 TABLET BY ity of tablet 00:00: MOUTH [place] THREE Medical TIMES A Branch DAY NEEDED FOR MUSCLE SPASMS GABAPENTIN 2022-0 Yes TAKE 1 Unive rs 400 mg 9-21 CAPSULE BY ity of capsule 00:00: MOUTH [place] THREE Medical TIMES A Branch DAY CYCLOBENZAP 2022-0 Yes [id number] TAKE 1 [facility] RINE 10 mg 9-21 TABLET BY ity of tablet 00:00: MOUTH THREE Medical TIMES A Branch DAY NEEDED FOR MUSCLE SPASMS GABAPENTIN 2022-0 Yes TAKE 1 Unive rs 400 mg 9-21 CAPSULE BY ity of capsule 00:00: [facility] THREE Medical TIMES A Branch DAY CYCLOBENZAP 2022-0 Yes [id number] TAKE 1 [facility] RINE 10 mg 9-21 TABLET BY ity of tablet 00:00: [facility] THREE Medical TIMES A Branch DAY NEEDED FOR MUSCLE SPASMS GABAPENTIN 2022-0 Yes TAKE 1 Unive rs 400 mg 9-21 CAPSULE BY ity of capsule 00:00: MOUTH THREE Medical TIMES A Branch DAY CYCLOBENZAP 2022-0 Yes [id number] TAKE 1 [facility] RINE 10 mg 9-21 TABLET BY ity of tablet 00:00: [facility] THREE Medical TIMES A Branch DAY NEEDED FOR MUSCLE SPASMS GABAPENTIN 2022-0 Yes TAKE 1 Unive rs 400 mg 9-21 CAPSULE BY ity of capsule 00:00: [facility] THREE Medical TIMES A Branch DAY CYCLOBENZAP 2022-0 Yes [id number] TAKE 1 [facility] RINE 10 mg 9-21 TABLET BY ity of tablet 00:00: MOUTH THREE Medical TIMES A Branch DAY NEEDED FOR MUSCLE SPASMS GABAPENTIN 2022-0 Yes TAKE 1 Unive rs 400 mg 9-21 CAPSULE BY ity of capsule 00:00: [facility] THREE Medical TIMES A Branch DAY CYCLOBENZAP 2022-0 Yes [id number] TAKE 1 [facility] RINE 10 mg 9-21 TABLET BY ity of tablet 00:00: [facility] THREE Medical TIMES A Branch DAY NEEDED FOR MUSCLE SPASMS GABAPENTIN 2022-0 Yes TAKE 1 Unive rs 400 mg 9-21 CAPSULE BY ity of capsule 00:00: [facility] 00 THREE Medical TIMES A Branch DAY GABAPENTIN 2022-0 Yes TAKE 1 Unive rs 400 mg 9-21 CAPSULE BY ity of capsule 00:00: MOUTH THREE Medical TIMES A Branch DAY GABAPENTIN 2022-0 Yes TAKE 1 Unive rs 400 mg 9-21 CAPSULE BY ity of capsule 00:00: MOUTH THREE Medical TIMES A Branch DAY GABAPENTIN 2022-0 Yes TAKE 1 Unive rs 400 mg 9-21 CAPSULE BY ity of capsule 00:00: MOUTH THREE Medical TIMES A Branch DAY GABAPENTIN 2022-0 Yes TAKE 1 Unive rs 400 mg 9-21 CAPSULE BY ity of capsule 00:00: MOUTH THREE Medical TIMES A Branch DAY GABAPENTIN 2022-0 Yes TAKE 1 Unive rs 400 mg 9-21 CAPSULE BY ity of capsule 00:00: MOUTH THREE Medical TIMES A Branch DAY GABAPENTIN 2022-0 Yes TAKE 1 Unive rs 400 mg 9-21 CAPSULE BY ity of capsule 00:00: MOUTH THREE Medical TIMES A Branch DAY GABAPENTIN 2022-0 Yes TAKE 1 Unive rs 400 mg 9-21 CAPSULE BY ity of capsule 00:00: MOUTH THREE Medical TIMES A Branch DAY GABAPENTIN 2022-0 Yes TAKE 1 Unive rs 400 mg 9-21 CAPSULE BY ity of capsule 00:00: MOUTH THREE Medical TIMES A Branch DAY GABAPENTIN 2022-0 Yes TAKE 1 Unive rs 400 mg 9-21 CAPSULE BY ity of capsule 00:00: MOUTH THREE Medical TIMES A Branch DAY GABAPENTIN 2022-0 Yes TAKE 1 Unive rs 400 mg 9-21 CAPSULE BY ity of capsule 00:00: MOUTH THREE Medical TIMES A Branch DAY GABAPENTIN 2022-0 Yes TAKE 1 Unive rs 400 mg 9-21 CAPSULE BY ity of capsule 00:00: MOUTH THREE Medical TIMES A Branch DAY GABAPENTIN 2022-0 Yes TAKE 1 Unive rs 400 mg 9-21 CAPSULE BY ity of capsule 00:00: MOUTH THREE Medical TIMES A Branch DAY GABAPENTIN 2022-0 Yes TAKE 1 Unive rs 400 mg 9-21 CAPSULE BY ity of capsule 00:00: MOUTH THREE Medical TIMES A Branch DAY GABAPENTIN 2022-0 Yes TAKE 1 Unive rs 400 mg 9-21 CAPSULE BY ity of capsule 00:00: MOUTH 00 THREE Medical TIMES A Branch DAY GABAPENTIN 2022-0 Yes TAKE 1 Unive rs 400 mg 9-21 CAPSULE BY ity of capsule 00:00: MOUTH [place] 00 THREE Medical TIMES A Branch DAY GABAPENTIN 2022-0 Yes TAKE 1 Unive rs 400 mg 9-21 CAPSULE BY ity of capsule 00:00: MOUTH [place] 00 THREE Medical TIMES A Branch DAY GABAPENTIN 2022-0 Yes TAKE 1 Unive rs 400 mg 9-21 CAPSULE BY ity of capsule 00:00: MOUTH [place] 00 THREE Medical TIMES A Branch DAY GABAPENTIN 2022-0 Yes TAKE 1 Unive rs 400 mg 9-21 CAPSULE BY ity of capsule 00:00: MOUTH [place] 00 THREE Medical TIMES A Branch DAY GABAPENTIN 2022-0 Yes TAKE 1 Unive rs 400 mg 9-21 CAPSULE BY ity of capsule 00:00: MOUTH [place] 00 THREE Medical TIMES A Branch DAY GABAPENTIN 2022-0 Yes TAKE 1 Unive rs 400 mg 9-21 CAPSULE BY ity of capsule 00:00: MOUTH [place] 00 THREE Medical TIMES A Branch DAY GABAPENTIN 2022-0 Yes TAKE 1 Unive rs 400 mg 9-21 CAPSULE BY ity of capsule 00:00: MOUTH [place] 00 THREE Medical TIMES A Branch DAY GABAPENTIN 2022-0 Yes TAKE 1 Unive rs 400 mg 9-21 CAPSULE BY ity of capsule 00:00: MOUTH [place] 00 THREE Medical TIMES A Branch DAY CYCLOBENZAP 2022-0 2022- No [id number] TAKE 1 [facility] RINE 10 mg 9-21 10-24 TABLET BY ity of tablet 00:00: 00:00 MOUTH [place] 00 :00 THREE Medical TIMES A Branch DAY NEEDED FOR MUSCLE SPASMS NAPROXEN 2022-0 Yes [id number] 500mg TAKE 1 [facility] 500 mg 9-12 [id number] TABLET BY ity of tablet 00:00: MOUTH IN [place] THE Medical MORNING Branch AND 1 TABLET IN THE EVENING. TAKE WITH MEALS. NAPROXEN 2022-0 Yes [id number] 500mg TAKE 1 [facility] 500 mg 9-12 [id number] TABLET BY ity of tablet 00:00: MOUTH IN [place] THE Medical MORNING Branch AND 1 TABLET IN THE EVENING. TAKE WITH MEALS. NAPROXEN 2022-0 Yes [id number] 500mg TAKE 1 [facility] 500 mg 9-12 [id number] TABLET BY ity of tablet 00:00: MOUTH IN [place] THE Medical MORNING Branch AND 1 TABLET IN THE EVENING. TAKE WITH MEALS. NAPROXEN 2022-0 Yes [id number] 500mg TAKE 1 [facility] 500 mg 9-12 [id number] TABLET BY ity of tablet 00:00: MOUTH IN [place] [address] [facility] MORNING [place] AND 1 TABLET IN THE EVENING. TAKE WITH MEALS. NAPROXEN 2022-0 Yes [id number] 500mg TAKE 1 Univers 500 mg 9-12 [id number] TABLET BY ity of tablet 00:00: MOUTH IN [address] MORNING [place] AND 1 TABLET IN THE EVENING. TAKE WITH MEALS. NAPROXEN 2022-0 Yes [id number] 500mg TAKE 1 [facility] 500 mg 9-12 [id number] TABLET BY ity of tablet 00:00: MOUTH IN [address] MORNING [place] AND 1 TABLET IN THE EVENING. TAKE WITH MEALS. NAPROXEN 2022-0 Yes [id number] 500mg TAKE 1 Univers 500 mg 9-12 [id number] TABLET BY ity of tablet 00:00: MOUTH IN [address] MORNING [place] AND 1 TABLET IN THE EVENING. TAKE WITH MEALS. NAPROXEN 2022-0 Yes [id number] 500mg TAKE 1 [facility] 500 mg 9-12 [id number] TABLET BY ity of tablet 00:00: MOUTH IN [address] AND 1 TABLET IN THE EVENING. TAKE WITH MEALS. NAPROXEN 2022-0 Yes [id number] 500mg TAKE 1 [facility] 500 mg 9-12 [id number] TABLET BY ity of tablet 00:00: MOUTH IN [address] AND 1 TABLET IN THE EVENING. TAKE WITH MEALS. NAPROXEN 2022-0 Yes [id number] 500mg TAKE 1 [facility] 500 mg 9-12 [id number] TABLET BY ity of tablet 00:00: MOUTH IN [address] AND 1 TABLET IN THE EVENING. TAKE WITH MEALS. NAPROXEN 2022-0 Yes [id number] 500mg TAKE 1 [facility] 500 mg 9-12 [id number] TABLET BY ity of tablet 00:00: MOUTH IN [address] AND 1 TABLET IN THE EVENING. TAKE WITH MEALS. NAPROXEN 2022-0 Yes [id number] 500mg TAKE 1 [facility] 500 mg 9-12 [id number] TABLET BY ity of tablet 00:00: MOUTH IN [address] AND 1 TABLET IN THE EVENING. TAKE WITH MEALS. NAPROXEN 2022-0 Yes [id number] 500mg TAKE 1 [facility] 500 mg 9-12 [id number] TABLET BY ity of tablet 00:00: MOUTH IN [place] [address] THE Medical MORNING [place] AND 1 TABLET IN THE EVENING. TAKE WITH MEALS. NAPROXEN 2-0 Yes [id number] 500mg TAKE 1 [facility] 500 mg 9-12 [id number] TABLET BY ity of tablet 00:00: MOUTH IN [place] [address] [facility] MORNING [place] AND 1 TABLET IN THE EVENING. TAKE WITH MEALS. NAPROXEN 2-0 Yes [id number] 500mg TAKE 1 [facility] 500 mg 9-12 [id number] TABLET BY ity of tablet 00:00: MOUTH IN [place] [address] [facility] MORNING [place] AND 1 TABLET IN THE EVENING. TAKE WITH MEALS. NAPROXEN 2-0 Yes [id number] 500mg TAKE 1 [facility] 500 mg 9-12 [id number] TABLET BY ity of tablet 00:00: MOUTH IN [address] MORNING [place] AND 1 TABLET IN THE EVENING. TAKE WITH MEALS. NAPROXEN 2021-0 Yes [id number] 500mg TAKE 1 [facility] 500 mg 9-12 [id number] TABLET BY ity of tablet 00:00: MOUTH IN [place] [address] [facility] MORNING [place] AND 1 TABLET IN THE EVENING. TAKE WITH MEALS. NAPROXEN 2021-0 2022- No [id number] 500mg TAKE 1 [facility] 500 mg 9-12 10-13 [id number] TABLET BY ity o f tablet 00:00: 00:00 MOUTH IN [place] 00 :00 [facility] MORNING [place] AND 1 TABLET IN THE EVENING. TAKE WITH MEALS. FLUTICASONE 2021-0 Yes [id number] SPRAY 2 Univers PROPIONATE 9-07 SPRAYS ity of 50 00:00: INTO EACH [place] mcg/actuati 00 NOSTRIL Medic al on nasal EVERY DAY Branch spray FLUTICASONE 2021-0 Yes [id number] SPRAY 2 [facility] PROPIONATE 9-07 SPRAYS ity of 50 00:00: INTO EACH [place] mcg/actuati 00 NOSTRIL Medic al on nasal EVERY DAY Branch spray FLUTICASONE 2021-0 Yes [id number] SPRAY 2 [facility] PROPIONATE 9-07 SPRAYS ity of 50 00:00: INTO EACH [place] mcg/actuati 00 NOSTRIL Medic al on nasal EVERY DAY Branch spray FLUTICASONE 2021-0 Yes [id number] SPRAY 2 Univers PROPIONATE 9-07 SPRAYS ity of 50 00:00: INTO EACH [place] mcg/actuati 00 NOSTRIL Medic al on nasal EVERY DAY Branch spray FLUTICASONE Yes [id number] SPRAY 2 [facility] PROPIONATE 9-07 SPRAYS ity of 50 00:00: INTO EACH [place] mcg/actuati 00 NOSTRIL Medic al on nasal EVERY DAY Branch spray FLUTICASONE Yes [id number] SPRAY 2 [facility] PROPIONATE 9-07 SPRAYS ity of 50 00:00: INTO EACH [place] mcg/actuati 00 NOSTRIL Medic al on nasal EVERY DAY Branch spray FLUTICASONE 0 Yes [id number] SPRAY 2 [facility] PROPIONATE 9-07 SPRAYS ity of 50 00:00: INTO EACH [place] mcg/actuati 00 NOSTRIL Medic al on nasal EVERY DAY Branch spray FLUTICASONE 0 Yes [id number] SPRAY 2 [facility] PROPIONATE 9-07 SPRAYS ity of 50 00:00: INTO EACH [place] mcg/actuati 00 NOSTRIL Medic al on nasal EVERY DAY Branch spray FLUTICASONE 0 Yes [id number] SPRAY 2 [facility] PROPIONATE 9-07 SPRAYS ity of 50 00:00: INTO EACH [place] mcg/actuati 00 NOSTRIL Medic al on nasal EVERY DAY Branch spray FLUTICASONE Yes [id number] SPRAY 2 [facility] PROPIONATE 9-07 SPRAYS ity of 50 00:00: INTO EACH [place] mcg/actuati 00 NOSTRIL Medic al on nasal EVERY DAY Branch spray FLUTICASONE 0 Yes [id number] SPRAY 2 [facility] PROPIONATE 9-07 SPRAYS ity of 50 00:00: INTO EACH [place] mcg/actuati 00 NOSTRIL Medic al on nasal EVERY DAY Branch spray FLUTICASONE 0 Yes [id number] SPRAY 2 [facility] PROPIONATE 9-07 SPRAYS ity of 50 00:00: INTO EACH [place] mcg/actuati 00 NOSTRIL Medic al on nasal EVERY DAY Branch spray FLUTICASONE 0 Yes [id number] SPRAY 2 [facility] PROPIONATE 9-07 SPRAYS ity of 50 00:00: INTO EACH [place] mcg/actuati 00 NOSTRIL Medic al on nasal EVERY DAY Branch spray FLUTICASONE 0 Yes [id number] SPRAY 2 [facility] PROPIONATE 9-07 SPRAYS ity of 50 00:00: INTO EACH [place] mcg/actuati 00 NOSTRIL Medic al on nasal EVERY DAY Branch spray FLUTICASONE 2021-0 Yes [id number] SPRAY 2 [facility] PROPIONATE 9-07 SPRAYS ity of 50 00:00: INTO EACH [place] mcg/actuati 00 NOSTRIL Medic al on nasal EVERY DAY Branch spray FLUTICASONE 2021-0 Yes [id number] SPRAY 2 [facility] PROPIONATE 9-07 SPRAYS ity of 50 00:00: INTO EACH [place] mcg/actuati 00 NOSTRIL Medic al on nasal EVERY DAY Branch spray FLUTICASONE 2021-0 Yes [id number] SPRAY 2 [facility] PROPIONATE 9-07 SPRAYS ity of 50 00:00: INTO EACH [place] mcg/actuati 00 NOSTRIL Medic al on nasal EVERY DAY Branch spray FLUTICASONE 2021-0 Yes [id number] SPRAY 2 [facility] PROPIONATE 9-07 SPRAYS ity of 50 00:00: INTO EACH [place] mcg/actuati 00 NOSTRIL Medic al on nasal EVERY DAY Branch spray FLUTICASONE 2021-0 Yes [id number] SPRAY 2 [facility] PROPIONATE 9-07 SPRAYS ity of 50 00:00: INTO EACH [place] mcg/actuati 00 NOSTRIL Medic al on nasal EVERY DAY Branch spray FLUTICASONE 2021-0 Yes [id number] SPRAY 2 [facility] PROPIONATE 9-07 SPRAYS ity of 50 00:00: INTO EACH [place] mcg/actuati 00 NOSTRIL Medic al on nasal EVERY DAY Branch spray FLUTICASONE 2021-0 Yes [id number] SPRAY 2 Univers PROPIONATE 9-07 SPRAYS ity of 50 00:00: INTO EACH [place] mcg/actuati 00 NOSTRIL Medic al on nasal EVERY DAY Branch spray FLUTICASONE 2021-0 Yes [id number] SPRAY 2 [facility] PROPIONATE 9-07 SPRAYS ity of 50 00:00: INTO EACH [place] mcg/actuati 00 NOSTRIL Medic al on nasal EVERY DAY Branch spray FLUTICASONE 2021-0 Yes [id number] SPRAY 2 [facility] PROPIONATE 9-07 SPRAYS ity of 50 00:00: INTO EACH [place] mcg/actuati 00 NOSTRIL Medic al on nasal EVERY DAY Branch spray FLUTICASONE 2021-0 Yes [id number] SPRAY 2 [facility] PROPIONATE 9-07 SPRAYS ity of 50 00:00: INTO EACH [place] mcg/actuati 00 NOSTRIL Medic al on nasal EVERY DAY Branch spray FLUTICASONE 2021-0 Yes [id number] SPRAY 2 [facility] PROPIONATE 9-07 SPRAYS ity of 50 00:00: INTO EACH [place] mcg/actuati 00 NOSTRIL Medic al on nasal EVERY DAY Branch spray FLUTICASONE 0 Yes [id number] SPRAY 2 [facility] PROPIONATE 9-07 SPRAYS ity of 50 00:00: INTO EACH [place] mcg/actuati NOSTRIL Medic al on nasal EVERY DAY Branch spray FLUTICASONE 0 Yes [id number] SPRAY 2 [facility] PROPIONATE 9-07 SPRAYS ity of 50 00:00: INTO EACH [place] mcg/actuati 00 NOSTRIL Medic al on nasal EVERY DAY Branch spray FLUTICASONE 0 Yes [id number] SPRAY 2 [facility] PROPIONATE 9-07 SPRAYS ity of 50 00:00: INTO EACH [place] mcg/actuati 00 NOSTRIL Medic al on nasal EVERY DAY Branch spray FLUTICASONE 2021-0 Yes [id number] SPRAY 2 [facility] PROPIONATE 9-07 SPRAYS ity of 50 00:00: INTO EACH [place] mcg/actuati 00 NOSTRIL Medic al on nasal EVERY DAY Branch spray FLUTICASONE 0 Yes [id number] SPRAY 2 [facility] PROPIONATE 9-07 SPRAYS ity of 50 00:00: INTO EACH [place] mcg/actuati 00 NOSTRIL Medic al on nasal EVERY DAY Branch spray FLUTICASONE 0 Yes [id number] SPRAY 2 [facility] PROPIONATE 9-07 SPRAYS ity of 50 00:00: INTO EACH [place] mcg/actuati 00 NOSTRIL Medic al on nasal EVERY DAY Branch spray FLUTICASONE 2021-0 Yes [id number] SPRAY 2 [facility] PROPIONATE 9-07 SPRAYS ity of 50 00:00: INTO EACH [place] mcg/actuati 00 NOSTRIL Medic al on nasal EVERY DAY Branch spray FLUTICASONE 2021-0 Yes [id number] SPRAY 2 [facility] PROPIONATE 9-07 SPRAYS ity of 50 00:00: INTO EACH [place] mcg/actuati 00 NOSTRIL Medic al on nasal EVERY DAY Branch spray FLUTICASONE 2021-0 Yes [id number] SPRAY 2 [facility] PROPIONATE 9-07 SPRAYS ity of 50 00:00: INTO EACH [place] mcg/actuati 00 NOSTRIL Medic al on nasal EVERY DAY Branch spray FLUTICASONE 2021-0 Yes [id number] SPRAY 2 [facility] PROPIONATE 9-07 SPRAYS ity of 50 00:00: INTO EACH [place] mcg/actuati 00 NOSTRIL Medic al on nasal EVERY DAY Branch spray FLUTICASONE 2021-0 Yes [id number] SPRAY 2 [facility] PROPIONATE 9-07 SPRAYS ity of 50 00:00: INTO EACH [place] mcg/actuati 00 NOSTRIL Medic al on nasal EVERY DAY Branch spray FLUTICASONE 2021-0 Yes [id number] SPRAY 2 [facility] PROPIONATE 9-07 SPRAYS ity of 50 00:00: INTO EACH [place] mcg/actuati 00 NOSTRIL Medic al on nasal EVERY DAY Branch spray FLUTICASONE 2021-0 Yes [id number] SPRAY 2 [facility] PROPIONATE 9-07 SPRAYS ity of 50 00:00: INTO EACH [place] mcg/actuati 00 NOSTRIL Medic al on nasal EVERY DAY Branch spray FLUTICASONE 2021-0 Yes [id number] SPRAY 2 [facility] PROPIONATE 9-07 SPRAYS ity of 50 00:00: INTO EACH [place] mcg/actuati 00 NOSTRIL Medic al on nasal EVERY DAY Branch spray FLUTICASONE 2021-0 2021- No [id number] SPRAY 2 Univers PROPIONATE 9-07 12-07 SPRAYS ity of 50 00:00: 00:00 INTO EACH [place] mcg/actuati 00 :00 NOSTRIL Medic al on nasal EVERY DAY Branch spray lancets 0 Yes Use as Univers (ULTRA THIN 9-02 directed ity of LANCETS) 30 00:00: to check [place] gauge Misc 00 blood Medical sugars 4 Branch times daily for E11.69 lancets 2021-0 Yes Use as Univers (ULTRA THIN 9-02 directed ity of LANCETS) 30 00:00: to check [place] gauge Misc 00 blood Medical sugars 4 Branch times daily for E11.69 lancets 2021-0 Yes Use as Univers (ULTRA THIN 9-02 directed ity of LANCETS) 30 00:00: to check [place] gauge Misc 00 blood Medical sugars 4 Branch times daily for E11.69 lancets 2021-0 Yes Use as Univers (ULTRA THIN 9-02 directed ity of LANCETS) 30 00:00: to check [place] gauge Misc 00 blood Medical sugars 4 Branch times daily for E11.69 lancets 2021-0 Yes Use as Univers (ULTRA THIN 9-02 directed ity of LANCETS) 30 00:00: to check [place] gauge Misc 00 blood Medical sugars 4 Branch times daily for E11.69 lancets 2021-0 Yes Use as Univers (ULTRA THIN 9-02 directed ity of LANCETS) 30 00:00: to check [place] gauge Misc 00 blood Medical sugars 4 Branch times daily for E11.69 lancets 2022-0 Yes Use as Univers (ULTRA THIN 9-02 directed ity of LANCETS) 30 00:00: to check [place] gauge Misc 00 blood Medical sugars 4 Branch times daily for E11.69 lancets 2022-0 Yes Use as Univers (ULTRA THIN 9-02 directed ity of LANCETS) 30 00:00: to check [place] gauge Misc 00 blood Medical sugars 4 Branch times daily for E11.69 lancets 2022-0 Yes Use as Univers (ULTRA THIN 9-02 directed ity of LANCETS) 30 00:00: to check [place] gauge Misc 00 blood Medical sugars 4 Branch times daily for E11.69 lancets 2022-0 Yes Use as Univers (ULTRA THIN 9-02 directed ity of LANCETS) 30 00:00: to check [place] gauge Misc 00 blood Medical sugars 4 Branch times daily for E11.69 lancets 2022-0 Yes Use as Univers (ULTRA THIN 9-02 directed ity of LANCETS) 30 00:00: to check [place] gauge Misc 00 blood Medical sugars 4 Branch times daily for E11.69 lancets 2022-0 Yes Use as Univers (ULTRA THIN 9-02 directed ity of LANCETS) 30 00:00: to check [place] gauge Misc 00 blood Medical sugars 4 Branch times daily for E11.69 lancets 2022-0 Yes Use as Univers (ULTRA THIN 9-02 directed ity of LANCETS) 30 00:00: to check [place] gauge Misc 00 blood Medical sugars 4 Branch times daily for E11.69 lancets 2022-0 Yes Use as Univers (ULTRA THIN 9-02 directed ity of LANCETS) 30 00:00: to check [place] gauge Misc 00 blood Medical sugars 4 Branch times daily for E11.69 lancets 2022-0 Yes Use as Univers (ULTRA THIN 9-02 directed ity of LANCETS) 30 00:00: to check [place] gauge Misc 00 blood Medical sugars 4 Branch times daily for E11.69 lancets 2022-0 Yes Use as Univers (ULTRA THIN 9-02 directed ity of LANCETS) 30 00:00: to check [place] gauge Misc 00 blood Medical sugars 4 Branch times daily for E11.69 lancets 2022-0 Yes Use as Univers (ULTRA THIN 9-02 directed ity of LANCETS) 30 00:00: to check [place] gauge Misc 00 blood Medical sugars 4 Branch times daily for E11.69 lancets 2022-0 Yes Use as Univers (ULTRA THIN 9-02 directed [facility]y of LANCETS) 30 00:00: to check [place] gauge Misc 00 blood Medical sugars 4 Branch times daily for E11.69 lancets 2021-0 Yes [facility] (ULTRA THIN 9-02 directed [facility]y of LANCETS) 30 00:00: to check [place] gauge Misc 00 blood Medical sugars 4 Branch times daily for E11.69 lancets 2021-0 Yes [facility] (ULTRA THIN 9-02 directed [facility]y of LANCETS) 30 00:00: to check [place] gauge Misc 00 blood Medical sugars 4 Branch times daily for E11.69 lancets 2021-0 Yes [facility] (ULTRA THIN 9-02 directed ity of LANCETS) 30 00:00: to check [place] gauge Misc 00 blood Medical sugars 4 Branch times daily for E11.69 lancets 2021-0 Yes [facility] (ULTRA THIN 9-02 directed ity of LANCETS) 30 00:00: to check [place] gauge Misc 00 blood Medical sugars 4 Branch times daily for E11.69 lancets 2021-0 Yes [facility] (ULTRA THIN 9-02 directed ity of LANCETS) 30 00:00: to check [place] gauge Misc 00 blood Medical sugars 4 Branch times daily for E11.69 lancets 2-0 Yes [facility] (ULTRA THIN 9-02 directed ity of LANCETS) 30 00:00: to check [place] gauge Misc 00 blood Medical sugars 4 Branch times daily for E11.69 lancets 2-0 Yes [facility] (ULTRA THIN 9-02 directed ity of LANCETS) 30 00:00: to check [place] gauge Misc 00 blood Medical sugars 4 Branch times daily for E11.69 lancets 2-0 Yes [facility] (ULTRA THIN 9-02 directed ity of LANCETS) 30 00:00: to check [place] gauge Misc 00 blood Medical sugars 4 Branch times daily for E11.69 lancets 2021-0 Yes [facility] (ULTRA THIN 9-02 directed ity of LANCETS) 30 00:00: to check [place] gauge Misc 00 blood Medical sugars 4 Branch times daily for E11.69 lancets 2022-0 Yes [facility] (ULTRA THIN 9-02 directed ity of LANCETS) 30 00:00: to check [place] gauge Misc 00 blood Medical sugars 4 Branch times daily for E11.69 lancets 2022-0 Yes Use [facility] (ULTRA THIN 9-02 directed ity of LANCETS) 30 00:00: to check [place] gauge Misc 00 blood Medical sugars 4 Branch times daily for E11.69 lancets 2022-0 Yes Use [facility] (ULTRA THIN 9-02 directed ity of LANCETS) 30 00:00: to check [place] gauge Misc 00 blood Medical sugars 4 Branch times daily for E11.69 lancets 2022-0 Yes Use [facility] (ULTRA THIN 9-02 directed ity of LANCETS) 30 00:00: to check [place] gauge Misc 00 blood Medical sugars 4 Branch times daily for E11.69 lancets 2022-0 Yes Use [facility] (ULTRA THIN 9-02 directed ity of LANCETS) 30 00:00: to check [place] gauge Misc 00 blood Medical sugars 4 Branch times daily for E11.69 lancets 2022-0 Yes Use [facility] (ULTRA THIN 9-02 directed ity of LANCETS) 30 00:00: to check [place] gauge Misc 00 blood Medical sugars 4 Branch times daily for E11.69 lancets 2022-0 Yes [facility] (ULTRA THIN 9-02 directed ity of LANCETS) 30 00:00: to check [place] gauge Misc 00 blood Medical sugars 4 Branch times daily for E11.69 lancets 2022-0 Yes [facility] (ULTRA THIN 9-02 directed ity of LANCETS) 30 00:00: to check [place] gauge Misc 00 blood Medical sugars 4 Branch times daily for E11.69 lancets 2022-0 Yes Use [facility] (ULTRA THIN 9-02 directed ity of LANCETS) 30 00:00: to check [place] gauge Misc 00 blood Medical sugars 4 Branch times daily for E11.69 lancets 2022-0 Yes Use [facility] (ULTRA THIN 9-02 directed ity of LANCETS) 30 00:00: to check [place] gauge Misc 00 blood Medical sugars 4 Branch times daily for E11.69 lancets 2022-0 Yes Use [facility] (ULTRA THIN 9-02 directed ity of LANCETS) 30 00:00: to check [place] gauge Misc 00 blood Medical sugars 4 Branch times daily for E11.69 lancets 2022-0 Yes Use [facility] (ULTRA THIN 9-02 directed ity of LANCETS) 30 00:00: to check [place] gauge Misc 00 blood Medical sugars 4 Branch times daily for E11.69 lancets 2022-0 Yes Use [facility] (ULTRA THIN 9-02 directed ity of LANCETS) 30 00:00: to check [place] gauge Misc 00 blood Medical sugars 4 Branch times daily for E11.69 lancets 2-0 Yes Use [facility] (ULTRA THIN 9-02 directed ity of LANCETS) 30 00:00: to check [place] gauge Misc 00 blood Medical sugars 4 Branch times daily for E11.69 lancets 2022-0 Yes Use [facility] (ULTRA THIN 9-02 directed ity of LANCETS) 30 00:00: to check [place] gauge Misc 00 blood Medical sugars 4 Branch times daily for E11.69 lancets 2022-0 Yes Use [facility] (ULTRA THIN 9-02 directed ity of LANCETS) 30 00:00: to check [place] gauge Misc 00 blood Medical sugars 4 Branch times daily for E11.69 lancets 2022-0 Yes Use [facility] (ULTRA THIN 9-02 directed ity of LANCETS) 30 00:00: to check [place] gauge Misc 00 blood Medical sugars 4 Branch times daily for E11.69 lancets 2022-0 Yes Use [facility] (ULTRA THIN 9-02 directed ity of LANCETS) 30 00:00: to check [place] gauge Misc 00 blood Medical sugars 4 Branch times daily for E11.69 lancets 2022-0 Yes Use [facility] (ULTRA THIN 9-02 directed ity of LANCETS) 30 00:00: to check [place] gauge Misc 00 blood Medical sugars 4 Branch times daily for E11.69 lancets 2022-0 Yes Use [facility] (ULTRA THIN 9-02 directed ity of LANCETS) 30 00:00: to check [place] gauge Misc 00 blood Medical sugars 4 Branch times daily for E11.69 lancets 2022-0 Yes Use [facility] (ULTRA THIN 9-02 directed ity of LANCETS) 30 00:00: to check [place] gauge Misc 00 blood Medical sugars 4 Branch times daily for E11.69 lancets 2021-0 Yes Use [facility] (ULTRA THIN 9-02 directed ity of LANCETS) 30 00:00: to check [place] gauge Misc 00 blood Medical sugars 4 Branch times daily for E11.69 lancets 2021-0 Yes Use [facility] (ULTRA THIN 9-02 directed ity of LANCETS) 30 00:00: to check [place] gauge Misc 00 blood Medical sugars 4 Branch times daily for E11.69 lancets 2021-0 Yes Use [facility] (ULTRA THIN 9-02 directed ity of LANCETS) 30 00:00: to check [place] gauge Misc 00 blood Medical sugars 4 Branch times daily for E11.69 lancets 2021-0 Yes Use [facility] (ULTRA THIN 9-02 directed ity of LANCETS) 30 00:00: to check [place] gauge Misc 00 blood Medical sugars 4 Branch times daily for E11.69 erythromyci 2021-0 Yes [id number] .5[in_u Place 0.5 [facility] n 5 mg/gram 8-31 s] Inches in ity of (0.5 %) 00:00: both eyes [place] ophthalmic 00 4 (four) Medic al ointment times Branch daily. erythromyci 2021-0 Yes [id number] .5[in_u Place 0.5 [facility] n 5 mg/gram 8-31 s] Inches in ity of (0.5 %) 00:00: both eyes [place] ophthalmic 00 4 (four) Medic al ointment times Branch daily. erythromyci 2021-0 Yes [id number] .5[in_u Place 0.5 [facility] n 5 mg/gram 8-31 s] Inches in ity of (0.5 %) 00:00: both eyes [place] ophthalmic 00 4 (four) Medic al ointment times Branch daily. erythromyci 2021-0 Yes [id number] .5[in_u Place 0.5 [facility] n 5 mg/gram 8-31 s] Inches in ity of (0.5 %) 00:00: both eyes [place] ophthalmic 00 4 (four) Medic al ointment times Branch daily. erythromyci Yes [id number] .5[in_u Place 0.5 [facility] n 5 mg/gram 8-31 s] Inches in ity of (0.5 %) 00:00: both eyes [place] ophthalmic 00 4 (four) Medic al ointment times Branch daily. erythromyci Yes [id number] .5[in_u Place 0.5 [facility] n 5 mg/gram 8-31 s] Inches in ity of (0.5 %) 00:00: both eyes [place] ophthalmic 00 4 (four) Medic al ointment times Branch daily. erythromyci Yes [id number] .5[in_u Place 0.5 [facility] n 5 mg/gram 8-31 s] Inches in ity of (0.5 %) 00:00: both eyes [place] ophthalmic 00 4 (four) Medic al ointment times Branch daily. erythromyci Yes [id number] .5[in_u Place 0.5 [facility] n 5 mg/gram 8-31 s] Inches in ity of (0.5 %) 00:00: both eyes [place] ophthalmic 00 4 (four) Medic al ointment times Branch daily. erythromyci Yes [id number] .5[in_u Place 0.5 [facility] n 5 mg/gram 8-31 s] Inches in ity of (0.5 %) 00:00: both eyes [place] ophthalmic 00 4 (four) Medic al ointment times Branch daily. erythromyci Yes [id number] .5[in_u Place 0.5 [facility] n 5 mg/gram 8-31 s] Inches in ity of (0.5 %) 00:00: both eyes [place] ophthalmic 00 4 (four) Medic al ointment times Branch daily. erythromyci 0 Yes [id number] .5[in_u Place 0.5 [facility] n 5 mg/gram 8-31 s] Inches in ity of (0.5 %) 00:00: both eyes [place] ophthalmic 00 4 (four) Medic al ointment times Branch daily. erythromyci Yes [id number] .5[in_u Place 0.5 [facility] n 5 mg/gram 8-31 s] Inches in ity of (0.5 %) 00:00: both eyes [place] ophthalmic 00 4 (four) Medic al ointment times Branch daily. erythromyci 2021-0 Yes [id number] .5[in_u Place 0.5 [facility] n 5 mg/gram 8-31 s] Inches in ity of (0.5 %) 00:00: both eyes [place] ophthalmic 00 4 (four) Medic al ointment times Branch daily. erythromyci 2021-0 Yes [id number] .5[in_u Place 0.5 [facility] n 5 mg/gram 8-31 s] Inches in ity of (0.5 %) 00:00: both eyes [place] ophthalmic 00 4 (four) Medic al ointment times Branch daily. erythromyci 2021-0 Yes [id number] .5[in_u Place 0.5 [facility] n 5 mg/gram 8-31 s] Inches in ity of (0.5 %) 00:00: both eyes [place] ophthalmic 00 4 (four) Medic al ointment times Branch daily. erythromyci 2021- Yes [id number] .5[in_u Place 0.5 [facility] n 5 mg/gram 8-31 s] Inches in ity of (0.5 %) 00:00: both eyes [place] ophthalmic 00 4 (four) Medic al ointment times Branch daily. erythromyci 2021-0 Yes [id number] .5[in_u Place 0.5 [facility] n 5 mg/gram 8-31 s] Inches in ity of (0.5 %) 00:00: both eyes [place] ophthalmic 00 4 (four) Medic al ointment times Branch daily. erythromyci 2021- Yes [id number] .5[in_u Place 0.5 [facility] n 5 mg/gram 8-31 s] Inches in ity of (0.5 %) 00:00: both eyes [place] ophthalmic 00 4 (four) Medic al ointment times Branch daily. erythromyci 2021-0 Yes [id number] .5[in_u Place 0.5 [facility] n 5 mg/gram 8-31 s] Inches in ity of (0.5 %) 00:00: both eyes [place] ophthalmic 00 4 (four) Medic al ointment times Branch daily. erythromyci 2021-0 Yes [id number] .5[in_u Place 0.5 [facility] n 5 mg/gram 8-31 s] Inches in ity of (0.5 %) 00:00: both eyes [place] ophthalmic 00 4 (four) Medic al ointment times Branch daily. erythromyci 2021-0 Yes [id number] .5[in_u Place 0.5 [facility] n 5 mg/gram 8-31 s] Inches in ity of (0.5 %) 00:00: both eyes [place] ophthalmic 00 4 (four) Medic al ointment times Branch daily. erythromyci 2021-0 Yes [id number] .5[in_u Place 0.5 [facility] n 5 mg/gram 8-31 s] Inches in ity of (0.5 %) 00:00: both eyes [place] ophthalmic 00 4 (four) Medic al ointment times Branch daily. erythromyci Yes [id number] .5[in_u Place 0.5 [facility] n 5 mg/gram 8-31 s] Inches in ity of (0.5 %) 00:00: both eyes [place] ophthalmic 00 4 (four) Medic al ointment times Branch daily. erythromyci 2021-0 Yes [id number] .5[in_u Place 0.5 [facility] n 5 mg/gram 8-31 s] Inches in ity of (0.5 %) 00:00: both eyes [place] ophthalmic 00 4 (four) Medic al ointment times Branch daily. erythromyci 2021-0 Yes [id number] .5[in_u Place 0.5 [facility] n 5 mg/gram 8-31 s] Inches in ity of (0.5 %) 00:00: both eyes [place] ophthalmic 00 4 (four) Medic al ointment times Branch daily. erythromyci 2021-0 Yes [id number] .5[in_u Place 0.5 [facility] n 5 mg/gram 8-31 s] Inches in ity of (0.5 %) 00:00: both eyes [place] [facility]mic 00 4 (four) Medic al ointment times Branch daily. erythromyci 2021-0 Yes [id number] .5[in_u Place 0.5 [facility] n 5 mg/gram 8-31 s] Inches in ity of (0.5 %) 00:00: both eyes [place] ophthalmic 00 4 (four) Medic al ointment times Branch daily. erythromyci 2021-0 Yes [id number] .5[in_u Place 0.5 [facility] n 5 mg/gram 8-31 s] Inches in ity of (0.5 %) 00:00: both eyes [place] ophthalmic 00 4 (four) Medic al ointment times Branch daily. erythromyci 2021-0 Yes [id number] .5[in_u Place 0.5 [facility] n 5 mg/gram 8-31 s] Inches in ity of (0.5 %) 00:00: both eyes [place] ophthalmic 00 4 (four) Medic al ointment times Branch daily. erythromyci 2021- Yes [id number] .5[in_u Place 0.5 [facility] n 5 mg/gram 8-31 s] Inches in ity of (0.5 %) 00:00: both eyes [place] ophthalmic 00 4 (four) Medic al ointment times Branch daily. erythromyci Yes [id number] .5[in_u Place 0.5 [facility] n 5 mg/gram 8-31 s] Inches in ity of (0.5 %) 00:00: both eyes [place] ophthalmic 00 4 (four) Medic al ointment times Branch daily. erythromyci 2021-0 Yes [id number] .5[in_u Place 0.5 [facility] n 5 mg/gram 8-31 s] Inches in ity of (0.5 %) 00:00: both eyes [place] ophthalmic 00 4 (four) Medic al ointment times Branch daily. erythromyci 2021-0 Yes [id number] .5[in_u Place 0.5 [facility] n 5 mg/gram 8-31 s] Inches in ity of (0.5 %) 00:00: both eyes [place] ophthalmic 00 4 (four) Medic al ointment times Branch daily. erythromyci Yes [id number] .5[in_u Place 0.5 [facility] n 5 mg/gram 8-31 s] Inches in ity of (0.5 %) 00:00: both eyes [place] ophthalmic 00 4 (four) Medic al ointment times Branch daily. erythromyci 2021- Yes [id number] .5[in_u Place 0.5 [facility] n 5 mg/gram 8-31 s] Inches in ity of (0.5 %) 00:00: both eyes [place] ophthalmic 00 4 (four) Medic al ointment times Branch daily. erythromyci 2021-0 Yes [id number] .5[in_u Place 0.5 [facility] n 5 mg/gram 8-31 s] Inches in ity of (0.5 %) 00:00: both eyes [place] ophthalmic 00 4 (four) Medic al ointment times Branch daily. erythromyci 2021- Yes [id number] .5[in_u Place 0.5 [facility] n 5 mg/gram 8-31 s] Inches in ity of (0.5 %) 00:00: both eyes [place] ophthalmic 00 4 (four) Medic al ointment times Branch daily. erythromyci 2021- Yes [id number] .5[in_u Place 0.5 [facility] n 5 mg/gram 8-31 s] Inches in ity of (0.5 %) 00:00: both eyes [place] ophthalmic 00 4 (four) Medic al ointment times Branch daily. erythromyci 2021- Yes [id number] .5[in_u Place 0.5 [facility] n 5 mg/gram 8-31 s] Inches in ity of (0.5 %) 00:00: both eyes [place] ophthalmic 00 4 (four) Medic al ointment times Branch daily. erythromyci Yes [id number] .5[in_u Place 0.5 [facility] n 5 mg/gram 8-31 s] Inches in ity of (0.5 %) 00:00: both eyes [place] ophthalmic 00 4 (four) Medic al ointment times Branch daily. erythromyci 2021-0 Yes [id number] .5[in_u Place 0.5 [facility] n 5 mg/gram 8-31 s] Inches in ity of (0.5 %) 00:00: both eyes [place] ophthalmic 00 4 (four) Medic al ointment times Branch daily. erythromyci 2021- Yes [id number] .5[in_u Place 0.5 [facility] n 5 mg/gram 8-31 s] Inches in ity of (0.5 %) 00:00: both eyes [place] ophthalmic 00 4 (four) Medic al ointment times Branch daily. erythromyci 2021-0 Yes [id number] .5[in_u Place 0.5 [facility] n 5 mg/gram 8-31 s] Inches in ity of (0.5 %) 00:00: both eyes [place] ophthalmic 00 4 (four) Medic al ointment times Branch daily. erythromyci 2021-0 Yes [id number] .5[in_u Place 0.5 [facility] n 5 mg/gram 8-31 s] Inches in ity of (0.5 %) 00:00: both eyes [place] ophthalmic 00 4 (four) Medic al ointment times Branch daily. erythromyci 2021-0 Yes [id number] .5[in_u Place 0.5 [facility] n 5 mg/gram 8-31 s] Inches in ity of (0.5 %) 00:00: both eyes [place] ophthalmic 00 4 (four) Medic al ointment times Branch daily. erythromyci Yes [id number] .5[in_u Place 0.5 [facility] n 5 mg/gram 8-31 s] Inches in ity of (0.5 %) 00:00: both eyes [place] ophthalmic 00 4 (four) Medic al ointment times Branch daily. erythromyci 2021-0 Yes [id number] .5[in_u Place 0.5 [facility] n 5 mg/gram 8-31 s] Inches in ity of (0.5 %) 00:00: both eyes [place] ophthalmic 00 4 (four) Medic al ointment times Branch daily. erythromyci 2021-0 Yes [id number] .5[in_u Place 0.5 [facility] n 5 mg/gram 8-31 s] Inches in ity of (0.5 %) 00:00: both eyes [place] ophthalmic 00 4 (four) Medic al ointment times Branch daily. erythromyci 2021- Yes [id number] .5[in_u Place 0.5 [facility] n 5 mg/gram 8-31 s] Inches in ity of (0.5 %) 00:00: both eyes [place] ophthalmic 00 4 (four) Medic al ointment times Branch daily. erythromyci Yes [id number] .5[in_u Place 0.5 [facility] n 5 mg/gram 8-31 s] Inches in ity of (0.5 %) 00:00: both eyes [place] ophthalmic 00 4 (four) Medic al ointment times Branch daily. erythromyci 2021-0 Yes [id number] .5[in_u Place 0.5 [facility] n 5 mg/gram 8-31 s] Inches in ity of (0.5 %) 00:00: both eyes [place] ophthalmic 00 4 (four) Medic al ointment times Branch daily. erythromyci 2021- Yes [id number] .5[in_u Place 0.5 [facility] n 5 mg/gram 8-31 s] Inches in ity of (0.5 %) 00:00: both eyes [place] ophthalmic 00 4 (four) Medic al ointment times Branch daily. erythromyci Yes [id number] .5[in_u Place 0.5 [facility] n 5 mg/gram 8-31 s] Inches in ity of (0.5 %) 00:00: both eyes [place] ophthalmic 00 4 (four) Medic al ointment times Branch daily. erythromyci Yes [id number] .5[in_u Place 0.5 [facility] n 5 mg/gram 8-31 s] Inches in ity of (0.5 %) 00:00: both eyes [place] ophthalmic 00 4 (four) Medic al ointment times Branch daily. CYCLOBENZAP Yes [id number] TAKE 1 [facility] RINE 10 mg 8-24 TABLET BY ity of tablet 00:00: MOUTH [place] 00 THREE Medical TIMES A Branch DAY NEEDED FOR MUSCLE SPASMS HYDROcodone 0 Yes 2745 1{tbl} Take 1 [facility] -acetaminop 8-24 tablet by ity of hen 7.5-325 00:00: mouth [place] mg per 00 every 6 Medical tablet (six) Branch hours as needed for Pain. Indication s: chronic pain CYCLOBENZAP Yes [id number] TAKE 1 [facility] RINE 10 mg 8-24 TABLET BY ity of tablet 00:00: MOUTH [place] 00 THREE Medical TIMES A Branch DAY NEEDED FOR MUSCLE SPASMS HYDROcodone 2022-0 Yes 2745 1{tbl} Take 1 [facility] -acetaminop 8-24 tablet by ity of hen 7.5-325 00:00: mouth [place] mg per 00 every 6 Medical tablet (six) Branch hours as needed for Pain. Indication s: chronic pain CYCLOBENZAP 2022-0 Yes [id number] TAKE 1 [facility] RINE 10 mg 8-24 TABLET BY ity of tablet 00:00: MOUTH [place] 00 THREE Medical TIMES A Branch DAY NEEDED FOR MUSCLE SPASMS HYDROcodone 2022-0 Yes 2745 1{tbl} Take 1 [facility] -acetaminop 8-24 tablet by ity of hen 7.5-325 00:00: mouth [place] mg per 00 every 6 Medical tablet (six) Branch hours as needed for Pain. Indication s: chronic pain CYCLOBENZAP 2022-0 Yes [id number] TAKE 1 [facility] RINE 10 mg 8-24 TABLET BY ity of tablet 00:00: MOUTH [place] 00 THREE Medical TIMES A Branch DAY NEEDED FOR MUSCLE SPASMS HYDROcodone 2022-0 Yes 2745 1{tbl} Take 1 [facility] -acetaminop 8-24 tablet by ity of hen 7.5-325 00:00: mouth [place] mg per 00 every 6 Medical tablet (six) Branch hours as needed for Pain. Indication s: chronic pain CYCLOBENZAP 2022-0 Yes [id number] TAKE 1 [facility] RINE 10 mg 8-24 TABLET BY ity of tablet 00:00: MOUTH [place] 00 THREE Medical TIMES A Branch DAY NEEDED FOR MUSCLE SPASMS HYDROcodone 2022-0 Yes 2745 1{tbl} Take 1 [facility] -acetaminop 8-24 tablet by ity of hen 7.5-325 00:00: mouth [place] mg per 00 every 6 Medical tablet (six) Branch hours as needed for Pain. Indication s: chronic pain CYCLOBENZAP 2022-0 Yes [id number] TAKE 1 [facility] RINE 10 mg 8-24 TABLET BY ity of tablet 00:00: MOUTH [place] 00 THREE Medical TIMES A Branch DAY NEEDED FOR MUSCLE SPASMS HYDROcodone 2022-0 Yes 2745 1{tbl} Take 1 [facility] -acetaminop 8-24 tablet by ity of hen 7.5-325 00:00: mouth [place] mg per 00 every 6 Medical tablet (six) Branch hours as needed for Pain. Indication s: chronic pain HYDROcodone 2021-0 Yes 2745 1{tbl} Take 1 [facility] -acetaminop 8-24 tablet by ity of hen 7.5-325 00:00: mouth [place] mg per 00 every 6 Medical tablet (six) Branch hours as needed for Pain. Indication s: chronic pain HYDROcodone 2021-0 Yes 2745 1{tbl} Take 1 [facility] -acetaminop 8-24 tablet by ity of hen 7.5-325 00:00: mouth [place] mg per 00 every 6 Medical tablet (six) Branch hours as needed for Pain. Indication s: chronic pain HYDROcodone 2021-0 Yes 2745 1{tbl} Take 1 [facility] -acetaminop 8-24 tablet by ity of hen 7.5-325 00:00: mouth [place] mg per 00 every 6 Medical tablet (six) Branch hours as needed for Pain. Indication s: chronic pain HYDROcodone 2021-0 Yes 2745 1{tbl} Take 1 [facility] -acetaminop 8-24 tablet by ity of hen 7.5-325 00:00: mouth [place] mg per 00 every 6 Medical tablet (six) Branch hours as needed for Pain. Indication s: chronic pain HYDROcodone 2021-0 Yes 2745 1{tbl} Take 1 [facility] -acetaminop 8-24 tablet by ity of hen 7.5-325 00:00: mouth [place] mg per 00 every 6 Medical tablet (six) Branch hours as needed for Pain. Indication s: chronic pain HYDROcodone 2021-0 Yes 2745 1{tbl} Take 1 [facility] -acetaminop 8-24 tablet by ity of hen 7.5-325 00:00: mouth [place] mg per 00 every 6 Medical tablet (six) Branch hours as needed for Pain. Indication s: chronic pain HYDROcodone 2021-0 Yes 2745 1{tbl} Take 1 [facility] -acetaminop 8-24 tablet by ity of hen 7.5-325 00:00: mouth [place] mg per 00 every 6 Medical tablet (six) Branch hours as needed for Pain. Indication s: chronic pain HYDROcodone 2021-0 Yes 2745 1{tbl} Take 1 [facility] -acetaminop 8-24 tablet by ity of hen 7.5-325 00:00: mouth [place] mg per 00 every 6 Medical tablet (six) Branch hours as needed for Pain. Indication s: chronic pain HYDROcodone 2021-0 Yes 2745 1{tbl} Take 1 [facility] -acetaminop 8-24 tablet by ity of hen 7.5-325 00:00: mouth [place] mg per 00 every 6 Medical tablet (six) Branch hours as needed for Pain. Indication s: chronic pain HYDROcodone 2021-0 Yes 2745 1{tbl} Take 1 [facility] -acetaminop 8-24 tablet by ity of hen 7.5-325 00:00: mouth [place] mg per 00 every 6 Medical tablet (six) Branch hours as needed for Pain. Indication s: chronic pain HYDROcodone 2021-0 Yes 2745 1{tbl} Take 1 [facility] -acetaminop 8-24 tablet by ity of hen 7.5-325 00:00: mouth [place] mg per 00 every 6 Medical tablet (six) Branch hours as needed for Pain. Indication s: chronic pain HYDROcodone 2021-0 Yes 2745 1{tbl} Take 1 [facility] -acetaminop 8-24 tablet by ity of hen 7.5-325 00:00: mouth [place] mg per 00 every 6 Medical tablet (six) Branch hours as needed for Pain. Indication s: chronic pain HYDROcodone 2021-2021- No 2745 1{tbl} Take 1 [facility] -acetaminop 8-24 - tablet by it y of hen 7.5-325 00:00: 00:00 [place] mg per 00 :00 every 6 Medical tablet (six) Branch hours as needed for Pain. Indication s: chronic pain HYDROcodone 2021-0 2021- No 2745 1{tbl} Take 1 [facility] -acetaminop 8-24 - tablet by it y of hen 7.5-325 00:00: 00:00 [place] mg per 00 :00 every 6 Medical tablet (six) Branch hours as needed for Pain. Indication s: chronic pain CYCLOBENZAP 2021-2021- No [id number] TAKE 1 [facility] RINE 10 mg 8-24 - TABLET BY ity of tablet 00:00: 00:00 MOUTH [place] 00 :00 THREE Medical TIMES A Branch DAY NEEDED FOR MUSCLE SPASMS CYCLOBENZAP 2022-0 2022- No [id number] TAKE 1 [facility] RINE 10 mg 8-24 09-21 TABLET BY ity of tablet 00:00: 00:00 MOUTH [place] 00 :00 THREE Medical TIMES A Branch DAY NEEDED FOR MUSCLE SPASMS CLONAZEPAM 2022-0 Yes TAKE 1 [facility] 1 mg tablet 8-18 TABLET BY ity of 00:00: MOUTH TWICE A Medical DAY Branch CLONAZEPAM 2022-0 Yes TAKE 1 [facility] 1 mg tablet 8-18 TABLET BY ity of 00:00: MOUTH TWICE A Medical DAY Branch CLONAZEPAM 2022-0 Yes TAKE 1 [facility] 1 mg tablet 8-18 TABLET BY ity of 00:00: TWICE A Medical DAY Branch CLONAZEPAM 2022-0 Yes TAKE 1 [facility] 1 mg tablet 8-18 TABLET BY ity of 00:00: TWICE A Medical DAY Branch CLONAZEPAM 2022-0 Yes TAKE 1 [facility] 1 mg tablet 8-18 TABLET BY ity of 00:00: MOUTH TWICE A Medical DAY Branch CLONAZEPAM 2022-0 Yes TAKE 1 [facility] 1 mg tablet 8-18 TABLET BY ity of 00:00: TWICE A Medical DAY Branch CLONAZEPAM 2022-0 Yes TAKE 1 [facility] 1 mg tablet 8-18 TABLET BY ity of 00:00: TWICE A Medical DAY Branch CLONAZEPAM 2022-0 Yes [id number] TAKE 1 [facility] 1 mg tablet 8-18 TABLET BY ity of 00:00: MOUTH TWICE A Medical DAY Branch CLONAZEPAM 2022-0 Yes [id number] TAKE 1 [facility] 1 mg tablet 8-18 TABLET BY ity of 00:00: MOUTH TWICE A Medical DAY Branch CLONAZEPAM 2022-0 Yes TAKE 1 [facility] 1 mg tablet 8-18 TABLET BY ity of 00:00: MOUTH TWICE A Medical DAY Branch CLONAZEPAM 2022-0 Yes TAKE 1 [facility] 1 mg tablet 8-18 TABLET BY ity of 00:00: MOUTH TWICE A Medical DAY Branch CLONAZEPAM 2022-0 Yes TAKE 1 [facility] 1 mg tablet 8-18 TABLET BY ity of 00:00: MOUTH TWICE A Medical DAY Branch CLONAZEPAM 2022-0 Yes TAKE 1 [facility] 1 mg tablet 8-18 TABLET BY ity of 00:00: TWICE A Medical DAY Branch CLONAZEPAM 2022-0 Yes TAKE 1 [facility] 1 mg tablet 8-18 TABLET BY ity of 00:00: TWICE A Medical DAY Branch CLONAZEPAM 2022-0 Yes TAKE 1 [facility] 1 mg tablet 8-18 TABLET BY ity of 00:00: TWICE A Medical DAY Branch CLONAZEPAM 2022-0 Yes TAKE 1 [facility] 1 mg tablet 8-18 TABLET BY ity of 00:00: TWICE A Medical DAY Branch CLONAZEPAM 2022-0 Yes TAKE 1 [facility] 1 mg tablet 8-18 TABLET BY ity of 00:00: TWICE A Medical DAY Branch CLONAZEPAM 2022-0 Yes TAKE 1 [facility] 1 mg tablet 8-18 TABLET BY ity of 00:00: TWICE A Medical DAY Branch CLONAZEPAM 2022-0 Yes TAKE 1 [facility] 1 mg tablet 8-18 TABLET BY ity of 00:00: TWICE A Medical DAY Branch CLONAZEPAM 2022-0 Yes TAKE 1 [facility] 1 mg tablet 8-18 TABLET BY ity of 00:00: TWICE A Medical DAY Branch CLONAZEPAM 2022-0 Yes [id number] TAKE 1 [facility] 1 mg tablet 8-18 TABLET BY ity of 00:00: TWICE A Medical DAY Branch CLONAZEPAM 2022-0 Yes [id number] TAKE 1 [facility] 1 mg tablet 8-18 TABLET BY ity of 00:00: TWICE A Medical DAY Branch CLONAZEPAM 2022-0 Yes [id number] TAKE 1 [facility] 1 mg tablet 8-18 TABLET BY [facility] 00:00: TWICE A [facility] DAY Branch CLONAZEPAM 2022-0 Yes [id number] TAKE 1 [facility] 1 mg tablet 8-18 TABLET BY [facility] 00:00: TWICE A Medical DAY Branch CLONAZEPAM 2022-0 Yes TAKE 1 [facility] 1 mg tablet 8-18 TABLET BY [facility] 00:00: TWICE A Medical DAY Branch CLONAZEPAM 2022-0 Yes TAKE 1 [facility] 1 mg tablet 8-18 TABLET BY [facility] 00:00: 00 TWICE A Medical DAY Branch CLONAZEPAM 2022-0 Yes TAKE 1 [facility] 1 mg tablet 8-18 TABLET BY [facility] 00:00: MOUTH TWICE A Medical DAY Branch CLONAZEPAM 2022-0 Yes TAKE 1 [facility] 1 mg tablet 8-18 TABLET BY [facility] 00:00: TWICE A Medical DAY Branch CLONAZEPAM 2022-0 Yes TAKE 1 [facility] 1 mg tablet 8-18 TABLET BY [facility] 00:00: MOUTH TWICE A Medical DAY Branch CLONAZEPAM 2022-0 Yes TAKE 1 [facility] 1 mg tablet 8-18 TABLET BY [facility] 00:00: MOUTH TWICE A Medical DAY Branch CLONAZEPAM 2022-0 Yes TAKE 1 [facility] 1 mg tablet 8-18 TABLET BY [facility] 00:00: TWICE A Medical DAY Branch CLONAZEPAM 2022-0 Yes TAKE 1 [facility] 1 mg tablet 8-18 TABLET BY [facility] 00:00: TWICE A Medical DAY Branch CLONAZEPAM 2022-0 Yes TAKE 1 [facility] 1 mg tablet 8-18 TABLET BY [facility] 00:00: TWICE A Medical DAY Branch CLONAZEPAM 2022-0 Yes [id number] TAKE 1 [facility] 1 mg tablet 8-18 TABLET BY [facility] 00:00: TWICE A Medical DAY Branch CLONAZEPAM 2022-0 Yes [id number] TAKE 1 [facility] 1 mg tablet 8-18 TABLET BY [facility] 00:00: TWICE A Medical DAY Branch CLONAZEPAM 2022-0 Yes [id number] TAKE 1 [facility] 1 mg tablet 8-18 TABLET BY [facility] 00:00: TWICE A Medical DAY Branch CLONAZEPAM 2022-0 Yes [id number] TAKE 1 [facility] 1 mg tablet 8-18 TABLET BY [facility] 00:00: MOUTH TWICE A Medical DAY Branch CLONAZEPAM 2022-0 Yes [id number] TAKE 1 [facility] 1 mg tablet 8-18 TABLET BY [facility] 00:00: TWICE A Medical DAY Branch CLONAZEPAM 2022-0 Yes [id number] TAKE 1 [facility] 1 mg tablet 8-18 TABLET BY [facility] 00:00: TWICE A Medical DAY Branch CLONAZEPAM 2022-0 Yes TAKE 1 [facility] 1 mg tablet 8-18 TABLET BY [facility] 00:00: MOUTH TWICE A Medical DAY Branch CLONAZEPAM 2022-0 Yes TAKE 1 [facility] 1 mg tablet 8-18 TABLET BY [facility] 00:00: TWICE A Medical DAY Branch CLONAZEPAM 2022-0 Yes TAKE 1 [facility] 1 mg tablet 8-18 TABLET BY [facility] 00:00: TWICE A Medical DAY Branch CLONAZEPAM 2022-0 Yes TAKE 1 [facility] 1 mg tablet 8-18 TABLET BY [facility] 00:00: TWICE A Medical DAY Branch CLONAZEPAM 2022-0 Yes TAKE 1 [facility] 1 mg tablet 8-18 TABLET BY [facility] 00:00: TWICE A Medical DAY Branch CLONAZEPAM 2022-0 Yes TAKE 1 [facility] 1 mg tablet 8-18 TABLET BY [facility] 00:00: TWICE A Medical DAY Branch CLONAZEPAM 2022-0 Yes TAKE 1 [facility] 1 mg tablet 8-18 TABLET BY [facility] 00:00: TWICE A Medical DAY Branch CLONAZEPAM 2022-0 Yes TAKE 1 [facility] 1 mg tablet 8-18 TABLET BY [facility] 00:00: TWICE A Medical DAY Branch CLONAZEPAM 2022-0 Yes TAKE 1 [facility] 1 mg tablet 8-18 TABLET BY [facility] 00:00: TWICE A Medical DAY Branch CLONAZEPAM 2022-0 Yes TAKE 1 [facility] 1 mg tablet 8-18 TABLET BY [facility] 00:00: TWICE A Medical DAY Branch CLONAZEPAM 2022-0 Yes TAKE 1 [facility] 1 mg tablet 8-18 TABLET BY [facility] 00:00: TWICE A Medical DAY Branch CLONAZEPAM 2022-0 Yes [id number] TAKE 1 [facility] 1 mg tablet 8-18 TABLET BY [facility] 00:00: TWICE A Medical DAY Branch CLONAZEPAM 2022-0 Yes TAKE 1 [facility] 1 mg tablet 8-18 TABLET BY [facility] 00:00: TWICE A Medical DAY Branch CLONAZEPAM 2022-0 Yes TAKE 1 [facility] 1 mg tablet 8-18 TABLET BY [facility] 00:00: TWICE A Medical DAY Branch CLONAZEPAM 2022-0 Yes TAKE 1 [facility] 1 mg tablet 8-18 TABLET BY [facility] 00:00: MOUTH [place] 00 TWICE A Medical DAY Branch CLONAZEPAM 2021- Yes [id number] TAKE 1 [facility] 1 mg tablet 8-18 TABLET BY [facility] 00:00: MOUTH [place] 00 TWICE A Medical DAY Branch naproxen 0 Yes [id number] 500mg Take 1 [facility] (NAPROSYN) 8-15 [id number] tablet by it y of 500 mg 00:00: mouth in [place] tablet 00 the Medical morning Branch and 1 tablet in the evening. Take with meals. naproxen Yes [id number] 500mg Take 1 [facility] (NAPROSYN) 8-15 [id number] tablet by [facility] of 500 mg 00:00: mouth in [place] tablet 00 the Medical morning Branch and 1 tablet in the evening. Take with meals. naproxen Yes [id number] 500mg Take 1 [facility] (NAPROSYN) 8-15 [id number] tablet by it y of 500 mg 00:00: mouth in [place] tablet 00 the Medical morning Branch and 1 tablet in the evening. Take with meals. naproxen 2021- No [id number] 500mg Take 1 [facility] (NAPROSYN) 03-14 [id number] tablet by i ty of 500 mg 00:00: 00:00 mouth in [place] tablet 00 :00 the Medical morning Branch and 1 tablet in the evening. Take with meals. naproxen 2021- No [id number] 500mg Take 1 [facility] (NAPROSYN) 03-14 [id number] tablet by i ty of 500 mg 00:00: 00:00 mouth in [place] tablet 00 :00 the Medical morning Branch and 1 tablet in the evening. Take with meals. LOVASTATIN Yes TAKE 1 [facility] 20 mg 8-11 TABLET BY [facility] tablet 00:00: MOUTH [place] 00 EVERYDAY Medical AT BEDTIME Branch LOVASTATIN Yes TAKE 1 [facility] 20 mg 8-11 TABLET BY [facility] tablet 00:00: MOUTH [place] 00 EVERYDAY Medical AT BEDTIME Branch LOVASTATIN 0 Yes TAKE 1 [facility] 20 mg 8-11 TABLET BY [facility] tablet 00:00: MOUTH 00 EVERYDAY Medical AT BEDTIME Branch LOVASTATIN Yes TAKE 1 [facility] 20 mg 8-11 TABLET BY [facility] tablet 00:00: MOUTH [place] 00 EVERYDAY Medical AT BEDTIME Branch LOVASTATIN 2-0 Yes TAKE 1 [facility] 20 mg 8-11 TABLET BY [facility] tablet 00:00: EVERYDAY Medical AT BEDTIME Branch LOVASTATIN 2-0 Yes TAKE 1 [facility] 20 mg 8-11 TABLET BY [facility] tablet 00:00: EVERYDAY Medical AT BEDTIME Branch LOVASTATIN 2-0 Yes TAKE 1 [facility] 20 mg 8-11 TABLET BY [facility] tablet 00:00: EVERYDAY Medical AT BEDTIME Branch LOVASTATIN 2-0 Yes TAKE 1 [facility] 20 mg 8-11 TABLET BY [facility] tablet 00:00: EVERYDAY Medical AT BEDTIME Branch LOVASTATIN 2-0 Yes TAKE 1 [facility] 20 mg 8-11 TABLET BY [facility] tablet 00:00: EVERYDAY Medical AT BEDTIME Branch LOVASTATIN 2-0 Yes TAKE 1 [facility] 20 mg 8-11 TABLET BY [facility] tablet 00:00: EVERYDAY Medical AT BEDTIME Branch LOVASTATIN 2-0 Yes TAKE 1 [facility] 20 mg 8-11 TABLET BY [facility] tablet 00:00: EVERYDAY Medical AT BEDTIME Branch LOVASTATIN 2-0 Yes TAKE 1 [facility] 20 mg 8-11 TABLET BY [facility] tablet 00:00: EVERYDAY Medical AT BEDTIME Branch LOVASTATIN 2-0 Yes TAKE 1 [facility] 20 mg 8-11 TABLET BY [facility] tablet 00:00: EVERYDAY Medical AT BEDTIME Branch LOVASTATIN 2-0 Yes TAKE 1 [facility] 20 mg 8-11 TABLET BY [facility] tablet 00:00: EVERYDAY Medical AT BEDTIME Branch LOVASTATIN 2-0 Yes TAKE 1 [facility] 20 mg 8-11 TABLET BY [facility] tablet 00:00: EVERYDAY Medical AT BEDTIME Branch LOVASTATIN 2-0 Yes TAKE 1 [facility] 20 mg 8-11 TABLET BY [facility] tablet 00:00: EVERYDAY Medical AT BEDTIME Branch LOVASTATIN 2-0 Yes TAKE 1 [facility] 20 mg 8-11 TABLET BY [facility] tablet 00:00: EVERYDAY Medical AT BEDTIME Branch LOVASTATIN 2-0 Yes TAKE 1 [facility] 20 mg 8-11 TABLET BY [facility] tablet 00:00: EVERYDAY Medical AT BEDTIME Branch LOVASTATIN 2-0 Yes TAKE 1 [facility] 20 mg 8-11 TABLET BY [facility] tablet 00:00: EVERYDAY Medical AT BEDTIME Branch LOVASTATIN 2-0 Yes TAKE 1 [facility] 20 mg 8-11 TABLET BY [facility] tablet 00:00: EVERYDAY Medical AT BEDTIME Branch LOVASTATIN 2-0 Yes TAKE 1 [facility] 20 mg 8-11 TABLET BY [facility] tablet 00:00: EVERYDAY Medical AT BEDTIME Branch LOVASTATIN 2-0 Yes TAKE 1 [facility] 20 mg 8-11 TABLET BY [facility] tablet 00:00: EVERYDAY Medical AT BEDTIME Branch LOVASTATIN 2-0 Yes TAKE 1 [facility] 20 mg 8-11 TABLET BY [facility] tablet 00:00: EVERYDAY Medical AT BEDTIME Branch LOVASTATIN 2-0 Yes TAKE 1 [facility] 20 mg 8-11 TABLET BY [facility] tablet 00:00: EVERYDAY Medical AT BEDTIME Branch LOVASTATIN 2-0 Yes TAKE 1 [facility] 20 mg 8-11 TABLET BY [facility] tablet 00:00: EVERYDAY Medical AT BEDTIME Branch LOVASTATIN 2-0 Yes TAKE 1 [facility] 20 mg 8-11 TABLET BY [facility] tablet 00:00: EVERYDAY Medical AT BEDTIME Branch LOVASTATIN 2-0 Yes TAKE 1 [facility] 20 mg 8-11 TABLET BY [facility] tablet 00:00: EVERYDAY Medical AT BEDTIME Branch LOVASTATIN 2-0 Yes TAKE 1 [facility] 20 mg 8-11 TABLET BY [facility] tablet 00:00: EVERYDAY Medical AT BEDTIME Branch LOVASTATIN 2-0 Yes TAKE 1 [facility] 20 mg 8-11 TABLET BY [facility] tablet 00:00: EVERYDAY Medical AT BEDTIME Branch LOVASTATIN 2-0 Yes TAKE 1 [facility] 20 mg 8-11 TABLET BY [facility] tablet 00:00: EVERYDAY Medical AT BEDTIME Branch LOVASTATIN 2-0 Yes TAKE 1 [facility] 20 mg 8-11 TABLET BY [facility] tablet 00:00: EVERYDAY Medical AT BEDTIME Branch LOVASTATIN 2-0 Yes TAKE 1 [facility] 20 mg 8-11 TABLET BY [facility] tablet 00:00: MOUTH [place] 00 EVERYDAY Medical AT BEDTIME Branch LOVASTATIN 2-0 Yes TAKE 1 [facility] 20 mg 8-11 TABLET BY [facility] tablet 00:00: MOUTH [place] 00 EVERYDAY Medical AT BEDTIME Branch LOVASTATIN 2-0 Yes TAKE 1 [facility] 20 mg 8-11 TABLET BY [facility] tablet 00:00: MOUTH 00 EVERYDAY Medical AT BEDTIME Branch LOVASTATIN 2-0 2022- No TAKE 1 [facility] 20 mg 8-11 11-04 TABLET BY [facility] tablet 00:00: 00:00 MOUTH [place] 00 :00 EVERYDAY Medical AT BEDTIME Branch TADALAFIL 2-0 Yes [id number] TAKE 1 [facility] nivers 20 mg 7-28 TABLET BY [facility] tablet 00:00: MOUTH [place] 00 NEEDED FOR Medical ERECTILE Branch DYSFUNCTIO N. TADALAFIL 2-0 Yes [id number] TAKE 1 [facility] nivers 20 mg 7-28 TABLET BY [facility] tablet 00:00: MOUTH [place] 00 NEEDED FOR Medical ERECTILE Branch DYSFUNCTIO N. TADALAFIL 2-0 Yes [id number] TAKE 1 [facility] nivers 20 mg 7-28 TABLET BY [facility] tablet 00:00: MOUTH [place] 00 NEEDED FOR Medical ERECTILE Branch DYSFUNCTIO N. TADALAFIL 2-0 Yes [id number] TAKE 1 [facility] nivers 20 mg 7-28 TABLET BY [facility] tablet 00:00: MOUTH [place] 00 NEEDED FOR Medical ERECTILE Branch DYSFUNCTIO N. TADALAFIL 2-0 Yes [id number] TAKE 1 [facility] nivers 20 mg 7-28 TABLET BY [facility] of tablet 00:00: MOUTH [place] 00 NEEDED FOR Medical ERECTILE Branch DYSFUNCTIO N. TADALAFIL 2022-0 Yes [id number] TAKE 1 [facility] nivers 20 mg 7-28 TABLET BY [facility] tablet 00:00: MOUTH [place] 00 NEEDED FOR Medical ERECTILE Branch DYSFUNCTIO N. TADALAFIL 2022-0 Yes [id number] TAKE 1 [facility] nivers 20 mg 7-28 TABLET BY [facility] of tablet 00:00: MOUTH [place] 00 NEEDED FOR Medical ERECTILE Branch DYSFUNCTIO N. TADALAFIL 2022-0 Yes [id number] TAKE 1 [facility] nivers 20 mg 7-28 TABLET BY [facility] of tablet 00:00: MOUTH [place] 00 NEEDED FOR Medical ERECTILE Branch DYSFUNCTIO N. TADALAFIL 2022-0 Yes [id number] TAKE 1 [facility] nivers 20 mg 7-28 TABLET BY [facility] of tablet 00:00: MOUTH [place] 00 NEEDED FOR Medical ERECTILE Branch DYSFUNCTIO N. TADALAFIL 2022-0 Yes [id number] TAKE 1 [facility] nivers 20 mg 7-28 TABLET BY [facility] tablet 00:00: MOUTH [place] 00 NEEDED FOR Medical ERECTILE Branch DYSFUNCTIO N. TADALAFIL 2022-0 Yes [id number] TAKE 1 [facility] nivers 20 mg 7-28 TABLET BY [facility] tablet 00:00: MOUTH [place] 00 NEEDED FOR Medical ERECTILE Branch DYSFUNCTIO N. TADALAFIL 2022-0 Yes [id number] TAKE 1 [facility] nivers 20 mg 7-28 TABLET BY [facility] of tablet 00:00: MOUTH [place] 00 NEEDED FOR Medical ERECTILE Branch DYSFUNCTIO N. TADALAFIL 2022-0 Yes [id number] TAKE 1 [facility] nivers 20 mg 7-28 TABLET BY [facility] tablet 00:00: MOUTH [place] 00 NEEDED FOR Medical ERECTILE Branch DYSFUNCTIO N. TADALAFIL 2022-0 Yes [id number] TAKE 1 [facility] nivers 20 mg 7-28 TABLET BY [facility] of tablet 00:00: MOUTH [place] 00 NEEDED FOR Medical ERECTILE Branch DYSFUNCTIO N. TADALAFIL 2022-0 Yes [id number] TAKE 1 [facility] nivers 20 mg 7-28 TABLET BY [facility] of tablet 00:00: MOUTH [place] 00 NEEDED FOR Medical ERECTILE Branch DYSFUNCTIO N. TADALAFIL 2022-0 Yes [id number] TAKE 1 [facility] nivers 20 mg 7-28 TABLET BY [facility] of tablet 00:00: MOUTH [place] 00 NEEDED FOR Medical ERECTILE Branch DYSFUNCTIO N. TADALAFIL 2022-0 Yes [id number] TAKE 1 [facility] nivers 20 mg 7-28 TABLET BY [facility] of tablet 00:00: MOUTH [place] 00 NEEDED FOR Medical ERECTILE Branch DYSFUNCTIO N. TADALAFIL 2022-0 Yes [id number] TAKE 1 [facility] nivers 20 mg 7-28 TABLET BY [facility] of tablet 00:00: MOUTH [place] 00 NEEDED FOR Medical ERECTILE Branch DYSFUNCTIO N. TADALAFIL 2022-0 Yes [id number] TAKE 1 [facility] nivers 20 mg 7-28 TABLET BY [facility] tablet 00:00: MOUTH [place] 00 NEEDED FOR Medical ERECTILE Branch DYSFUNCTIO N. TADALAFIL 2022-0 Yes [id number] TAKE 1 [facility] nivers 20 mg 7-28 TABLET BY [facility] tablet 00:00: MOUTH [place] 00 NEEDED FOR Medical ERECTILE Branch DYSFUNCTIO N. TADALAFIL 2022-0 Yes [id number] TAKE 1 [facility] nivers 20 mg 7-28 TABLET BY [facility] tablet 00:00: MOUTH [place] 00 NEEDED FOR Medical ERECTILE Branch DYSFUNCTIO N. TADALAFIL 2022-0 Yes [id number] TAKE 1 [facility] nivers 20 mg 7-28 TABLET BY [facility] of tablet 00:00: MOUTH [place] 00 NEEDED FOR Medical ERECTILE Branch DYSFUNCTIO N. TADALAFIL 2022-0 Yes [id number] TAKE 1 [facility] nivers 20 mg 7-28 TABLET BY [facility] tablet 00:00: MOUTH [place] 00 NEEDED FOR Medical ERECTILE Branch DYSFUNCTIO N. TADALAFIL 2022-0 Yes [id number] TAKE 1 [facility] 20 mg 7-28 TABLET BY [facility] tablet 00:00: MOUTH [place] 00 NEEDED FOR Medical ERECTILE Branch DYSFUNCTIO N. TADALAFIL 2022-0 Yes [id number] TAKE 1 [facility] nivers 20 mg 7-28 TABLET BY [facility] tablet 00:00: MOUTH [place] 00 NEEDED FOR Medical ERECTILE Branch DYSFUNCTIO N. TADALAFIL 2022-0 Yes [id number] TAKE 1 [facility] n[facility] 20 mg 7-28 TABLET BY [facility] of tablet 00:00: MOUTH [place] 00 NEEDED FOR Medical ERECTILE Branch DYSFUNCTIO N. TADALAFIL 2022-0 Yes [id number] TAKE 1 [facility] nivers 20 mg 7-28 TABLET BY [facility] of tablet 00:00: MOUTH [place] 00 NEEDED FOR Medical ERECTILE Branch DYSFUNCTIO N. TADALAFIL 2022-0 Yes [id number] TAKE 1 [facility] nivers 20 mg 7-28 TABLET BY [facility] of tablet 00:00: MOUTH [place] 00 NEEDED FOR Medical ERECTILE Branch DYSFUNCTIO N. TADALAFIL 2022-0 Yes [id number] TAKE 1 [facility] nivers 20 mg 7-28 TABLET BY [facility] of tablet 00:00: MOUTH [place] 00 NEEDED FOR Medical ERECTILE Branch DYSFUNCTIO N. TADALAFIL 2-0 Yes [id number] TAKE 1 [facility] nivers 20 mg 7-28 TABLET BY [facility] of tablet 00:00: MOUTH [place] 00 NEEDED FOR Medical ERECTILE Branch DYSFUNCTIO N. TADALAFIL 2-0 Yes [id number] TAKE 1 [facility] nivers 20 mg 7-28 TABLET BY it[facility] of tablet 00:00: MOUTH [place] 00 NEEDED FOR Medical ERECTILE Branch DYSFUNCTIO N. TADALAFIL 2-0 Yes [id number] TAKE 1 [facility] nivers 20 mg 7-28 TABLET BY it[facility] of tablet 00:00: MOUTH [place] 00 NEEDED FOR Medical ERECTILE Branch DYSFUNCTIO N. TADALAFIL 2-0 Yes [id number] TAKE 1 [facility] nivers 20 mg 7-28 TABLET BY it[facility] of tablet 00:00: MOUTH [place] 00 NEEDED FOR Medical ERECTILE Branch DYSFUNCTIO N. TADALAFIL 2-0 Yes [id number] TAKE 1 [facility] nivers 20 mg 7-28 TABLET BY [facility] of tablet 00:00: MOUTH [place] 00 NEEDED FOR Medical ERECTILE Branch DYSFUNCTIO N. TADALAFIL 2021-0 Yes [id number] TAKE 1 [facility]ivers 20 mg 7-28 TABLET BY [facility] of tablet 00:00: MOUTH [place] 00 NEEDED FOR Medical ERECTILE Branch DYSFUNCTIO N. TADALAFIL 2-0 Yes [id number] TAKE 1 [facility] nivers 20 mg 7-28 TABLET BY [facility] of tablet 00:00: MOUTH [place] 00 NEEDED FOR Medical ERECTILE Branch DYSFUNCTIO N. TADALAFIL 2-0 Yes [id number] TAKE 1 [facility] nivers 20 mg 7-28 TABLET BY [facility] of tablet 00:00: MOUTH [place] 00 NEEDED FOR Medical ERECTILE Branch DYSFUNCTIO N. TADALAFIL 2022-0 2022- No [id number] TAKE 1 [facility] 20 mg 7-28 11-10 TABLET BY [facility] of tablet 00:00: 00:00 MOUTH [place] 00 :00 NEEDED FOR Medical ERECTILE Branch DYSFUNCTIO N. LOSARTAN 2-0 Yes TAKE 1 [facility] 100 mg 6-27 TABLET BY [facility] of tablet 00:00: MOUTH [place] 00 EVERY DAY Medical Branch PANTOPRAZOL 2022-0 Yes [id number] TAKE 1 [facility] E 40 mg EC 6-27 TABLET BY [facility] of tablet 00:00: MOUTH [place] 00 EVERY DAY Medical Branch LOSARTAN 2-0 Yes TAKE 1 [facility] 100 mg 6-27 TABLET BY it[facility] of tablet 00:00: MOUTH [place] 00 EVERY DAY Medical Branch PANTOPRAZOL 2021-0 Yes [id number] TAKE 1 [facility] E 40 mg EC 6-27 TABLET BY it[facility] of tablet 00:00: MOUTH [place] 00 EVERY DAY Medical Branch LOSARTAN 2-0 Yes TAKE 1 [facility] 100 mg 6-27 TABLET BY it[facility] of tablet 00:00: MOUTH [place] 00 EVERY DAY Medical Branch PANTOPRAZOL 2021-0 Yes [id number] TAKE 1 [facility] E 40 mg EC 6-27 TABLET BY ity of tablet 00:00: [facility] 00 EVERY DAY Medical Branch LOSARTAN 2-0 Yes TAKE 1 [facility] 100 mg 6-27 TABLET BY ity of tablet 00:00: [facility] EVERY DAY Medical Branch PANTOPRAZOL 2021-0 Yes [id number] TAKE 1 [facility] E 40 mg EC 6-27 TABLET BY ity of tablet 00:00: MOUTH [place] 00 EVERY DAY Medical Branch LOSARTAN 2-0 Yes TAKE 1 [facility] 100 mg 6-27 TABLET BY ity of tablet 00:00: [facility] EVERY DAY Medical Branch PANTOPRAZOL 2021-0 Yes [id number] TAKE 1 [facility] E 40 mg EC 6-27 TABLET BY ity of tablet 00:00: MOUTH [place] 00 EVERY DAY Medical Branch LOSARTAN 2-0 Yes TAKE 1 [facility] 100 mg 6-27 TABLET BY ity of tablet 00:00: [facility] EVERY DAY Medical Branch PANTOPRAZOL 2022-0 Yes [id number] TAKE 1 [facility] E 40 mg EC 6-27 TABLET BY ity of tablet 00:00: [facility] 00 EVERY DAY Medical Branch LOSARTAN 2-0 Yes TAKE 1 [facility] 100 mg 6-27 TABLET BY ity of tablet 00:00: [facility] 00 EVERY DAY Medical Branch PANTOPRAZOL 2022-0 Yes [id number] TAKE 1 [facility] E 40 mg EC 6-27 TABLET BY ity of tablet 00:00: MOUTH [place] 00 EVERY DAY Medical Branch LOSARTAN 2-0 Yes TAKE 1 [facility] 100 mg 6-27 TABLET BY ity of tablet 00:00: [facility] EVERY DAY Medical Branch PANTOPRAZOL 2022-0 Yes [id number] TAKE 1 [facility] E 40 mg EC 6-27 TABLET BY ity of tablet 00:00: MOUTH [place] 00 EVERY DAY Medical Branch LOSARTAN 2021-0 Yes TAKE 1 [facility] 100 mg 6-27 TABLET BY ity of tablet 00:00: MOUTH [place] 00 EVERY DAY Medical Branch PANTOPRAZOL 2021-0 Yes [id number] TAKE 1 [facility] E 40 mg EC 6-27 TABLET BY ity of tablet 00:00: MOUTH [place] 00 EVERY DAY Medical Branch LOSARTAN 2021-0 Yes TAKE 1 [facility] 100 mg 6-27 TABLET BY [facility]y of tablet 00:00: MOUTH [place] 00 EVERY DAY Medical Branch PANTOPRAZOL 2021-0 Yes [id number] TAKE 1 [facility] E 40 mg EC 6-27 TABLET BY ity of tablet 00:00: MOUTH [place] 00 EVERY DAY Medical Branch LOSARTAN 2021-0 Yes TAKE 1 [facility] 100 mg 6-27 TABLET BY [facility] of tablet 00:00: MOUTH [place] 00 EVERY DAY Medical Branch PANTOPRAZOL 2021-0 Yes [id number] TAKE 1 [facility] E 40 mg EC 6-27 TABLET BY ity of tablet 00:00: MOUTH [place] 00 EVERY DAY Medical Branch LOSARTAN 2021-0 Yes TAKE 1 [facility] 100 mg 6-27 TABLET BY [facility]y of tablet 00:00: MOUTH [place] 00 EVERY DAY Medical Branch PANTOPRAZOL 2021-0 Yes [id number] TAKE 1 [facility] E 40 mg EC 6-27 TABLET BY ity of tablet 00:00: MOUTH [place] 00 EVERY DAY Medical Branch LOSARTAN 2-0 Yes TAKE 1 [facility] 100 mg 6-27 TABLET BY ity of tablet 00:00: MOUTH [place] 00 EVERY DAY Medical Branch PANTOPRAZOL 2-0 Yes [id number] TAKE 1 [facility] E 40 mg EC 6-27 TABLET BY ity of tablet 00:00: MOUTH [place] 00 EVERY DAY Medical Branch LOSARTAN 2-0 Yes TAKE 1 [facility] 100 mg 6-27 TABLET BY ity of tablet 00:00: MOUTH [place] 00 EVERY DAY Medical Branch PANTOPRAZOL 2-0 Yes [id number] TAKE 1 [facility] E 40 mg EC 6-27 TABLET BY ity of tablet 00:00: MOUTH [place] 00 EVERY DAY Medical Branch LOSARTAN 2-0 Yes TAKE 1 [facility] 100 mg 6-27 TABLET BY ity of tablet 00:00: MOUTH [place] 00 EVERY DAY Medical Branch PANTOPRAZOL 2021-0 Yes [id number] TAKE 1 [facility] E 40 mg EC 6-27 TABLET BY ity of tablet 00:00: MOUTH [place] 00 EVERY DAY Medical Branch LOSARTAN 2021-0 Yes TAKE 1 [facility] 100 mg 6-27 TABLET BY ity of tablet 00:00: MOUTH [place] EVERY DAY Medical Branch PANTOPRAZOL 2021-0 Yes [id number] TAKE 1 [facility] E 40 mg EC 6-27 TABLET BY [facility]y of tablet 00:00: MOUTH [place] 00 EVERY DAY Medical Branch LOSARTAN 2-0 Yes TAKE 1 [facility] 100 mg 6-27 TABLET BY ity of tablet 00:00: MOUTH [place] 00 EVERY DAY Medical Branch PANTOPRAZOL 2021-0 Yes [id number] TAKE 1 [facility] E 40 mg EC 6-27 TABLET BY ity of tablet 00:00: MOUTH [place] 00 EVERY DAY Medical Branch LOSARTAN 2021-0 Yes TAKE 1 [facility] 100 mg 6-27 TABLET BY ity of tablet 00:00: MOUTH [place] 00 EVERY DAY Medical Branch PANTOPRAZOL 2021-0 Yes [id number] TAKE 1 [facility] E 40 mg EC 6-27 TABLET BY ity of tablet 00:00: MOUTH [place] EVERY DAY Medical Branch LOSARTAN 2021-0 Yes TAKE 1 [facility] 100 mg 6-27 TABLET BY ity of tablet 00:00: MOUTH [place] 00 EVERY DAY Medical Branch PANTOPRAZOL 2021-0 Yes [id number] TAKE 1 [facility] E 40 mg EC 6-27 TABLET BY ity of tablet 00:00: [facility] 00 EVERY DAY Medical Branch LOSARTAN 2-0 Yes TAKE 1 [facility] 100 mg 6-27 TABLET BY ity of tablet 00:00: [facility] 00 EVERY DAY Medical Branch PANTOPRAZOL 2022-0 Yes [id number] TAKE 1 [facility] E 40 mg EC 6-27 TABLET BY ity of tablet 00:00: MOUTH [place] 00 EVERY DAY Medical Branch LOSARTAN 2-0 Yes TAKE 1 [facility] 100 mg 6-27 TABLET BY ity of tablet 00:00: [facility] 00 EVERY DAY Medical Branch PANTOPRAZOL 2022-0 Yes [id number] TAKE 1 [facility] E 40 mg EC 6-27 TABLET BY ity of tablet 00:00: MOUTH [place] 00 EVERY DAY Medical Branch LOSARTAN 2-0 Yes TAKE 1 [facility] 100 mg 6-27 TABLET BY ity of tablet 00:00: [facility] 00 EVERY DAY Medical Branch PANTOPRAZOL 2022-0 Yes [id number] TAKE 1 [facility] E 40 mg EC 6-27 TABLET BY ity of tablet 00:00: MOUTH [place] 00 EVERY DAY Medical Branch PANTOPRAZOL 2021-0 Yes [id number] TAKE 1 [facility] E 40 mg EC 6-27 TABLET BY ity of tablet 00:00: MOUTH [place] 00 EVERY DAY Medical Branch PANTOPRAZOL 2021-0 Yes [id number] TAKE 1 [facility] E 40 mg EC 6-27 TABLET BY ity of tablet 00:00: MOUTH [place] EVERY DAY Medical Branch PANTOPRAZOL 2021-0 Yes [id number] TAKE 1 [facility] E 40 mg EC 6-27 TABLET BY ity of tablet 00:00: MOUTH [place] 00 EVERY DAY Medical Branch PANTOPRAZOL 2021-0 Yes [id number] TAKE 1 [facility] E 40 mg EC 6-27 TABLET BY ity of tablet 00:00: MOUTH [place] 00 EVERY DAY Medical Branch PANTOPRAZOL 2021-0 Yes [id number] TAKE 1 [facility] E 40 mg EC 6-27 TABLET BY ity of tablet 00:00: MOUTH [place] 00 EVERY DAY Medical Branch PANTOPRAZOL 2021-0 Yes [id number] TAKE 1 [facility] E 40 mg EC 6-27 TABLET BY ity of tablet 00:00: MOUTH [place] 00 EVERY DAY Medical Branch PANTOPRAZOL 2021-0 Yes [id number] TAKE 1 [facility] E 40 mg EC 6-27 TABLET BY ity of tablet 00:00: MOUTH [place] 00 EVERY DAY Medical Branch PANTOPRAZOL 2021-0 Yes [id number] TAKE 1 [facility] E 40 mg EC 6-27 TABLET BY [facility]y of tablet 00:00: MOUTH [place] 00 EVERY DAY Medical Branch PANTOPRAZOL 2021-0 Yes [id number] TAKE 1 [facility] E 40 mg EC 6-27 TABLET BY ity of tablet 00:00: MOUTH [place] 00 EVERY DAY Medical Branch PANTOPRAZOL 2021-0 Yes [id number] TAKE 1 [facility] E 40 mg EC 6-27 TABLET BY [facility]y of tablet 00:00: MOUTH [place] 00 EVERY DAY Medical Branch PANTOPRAZOL 2021-0 Yes [id number] TAKE 1 [facility] E 40 mg EC 6-27 TABLET BY [facility]y of tablet 00:00: MOUTH [place] 00 EVERY DAY Medical Branch PANTOPRAZOL 2021-0 Yes [id number] TAKE 1 [facility] E 40 mg EC 6-27 TABLET BY [facility]y of tablet 00:00: MOUTH [place] 00 EVERY DAY Medical Branch PANTOPRAZOL 2021-0 Yes [id number] TAKE 1 [facility] E 40 mg EC 6-27 TABLET BY [facility] of tablet 00:00: MOUTH [place] 00 EVERY DAY Medical Branch PANTOPRAZOL 2021-0 Yes [id number] TAKE 1 [facility] E 40 mg EC 6-27 TABLET BY [facility] of tablet 00:00: MOUTH [place] 00 EVERY DAY Medical Branch PANTOPRAZOL 2021-0 Yes [id number] TAKE 1 [facility] E 40 mg EC 6-27 TABLET BY [facility]y of tablet 00:00: MOUTH [place] EVERY DAY Medical Branch PANTOPRAZOL 2021-0 Yes [id number] TAKE 1 [facility] E 40 mg EC 6-27 TABLET BY [facility]y of tablet 00:00: MOUTH [place] 00 EVERY DAY Medical Branch PANTOPRAZOL 2021-0 Yes [id number] TAKE 1 [facility] E 40 mg EC 6-27 TABLET BY ity of tablet 00:00: [facility] EVERY DAY Medical Branch PANTOPRAZOL 2021-0 Yes [id number] TAKE 1 [facility] E 40 mg EC 6-27 TABLET BY ity of tablet 00:00: [facility] EVERY DAY Medical Branch PANTOPRAZOL 2021-0 Yes [id number] TAKE 1 [facility] E 40 mg EC 6-27 TABLET BY ity of tablet 00:00: MOUTH [place] EVERY DAY Medical Branch PANTOPRAZOL 2021-0 Yes [id number] TAKE 1 [facility] E 40 mg EC 6-27 TABLET BY [facility]y of tablet 00:00: [facility] EVERY DAY Medical Branch PANTOPRAZOL 2021-0 Yes [id number] TAKE 1 [facility] E 40 mg EC 6-27 TABLET BY ity of tablet 00:00: [facility] EVERY DAY Medical Branch PANTOPRAZOL 2021-0 Yes [id number] TAKE 1 [facility] E 40 mg EC 6-27 TABLET BY [facility]y of tablet 00:00: [facility] 00 EVERY DAY Medical Branch PANTOPRAZOL 2021-0 Yes [id number] TAKE 1 [facility] E 40 mg EC 6-27 TABLET BY [facility]y of tablet 00:00: [facility] 00 EVERY DAY Medical Branch PANTOPRAZOL 2021-0 Yes [id number] TAKE 1 [facility] E 40 mg EC 6-27 TABLET BY [facility]y of tablet 00:00: [facility] 00 EVERY DAY Medical Branch PANTOPRAZOL 2021-0 Yes [id number] TAKE 1 [facility] E 40 mg EC 6-27 TABLET BY [facility]y of tablet 00:00: [facility] EVERY DAY Medical Branch PANTOPRAZOL 2021-0 Yes [id number] TAKE 1 [facility] E 40 mg EC 6-27 TABLET BY [facility]y of tablet 00:00: [facility] 00 EVERY DAY Medical Branch PANTOPRAZOL Yes [id number] TAKE 1 [facility] E 40 mg EC 6-27 TABLET BY [facility]y of tablet 00:00: [facility] EVERY DAY Medical Branch PANTOPRAZOL Yes [id number] TAKE 1 [facility] E 40 mg EC 6-27 TABLET BY ity of tablet 00:00: [facility] EVERY DAY Medical Branch PANTOPRAZOL Yes [id number] TAKE 1 [facility] E 40 mg EC 6-27 TABLET BY ity of tablet 00:00: [facility] 00 EVERY DAY Medical Branch PANTOPRAZOL Yes [id number] TAKE 1 [facility] E 40 mg EC 6-27 TABLET BY ity of tablet 00:00: [facility] DAY Medical Branch PANTOPRAZOL Yes [id number] TAKE 1 [facility] E 40 mg EC 6-27 TABLET BY ity of tablet 00:00: [facility] DAY Medical Branch PANTOPRAZOL Yes [id number] TAKE 1 [facility] E 40 mg EC 6-27 TABLET BY ity of tablet 00:00: [facility] 00 DAY Medical Branch PANTOPRAZOL Yes [id number] TAKE 1 [facility] E 40 mg EC 6-27 TABLET BY ity of tablet 00:00: [facility] EVERY DAY Medical Branch LOSARTAN 0 2021- No TAKE 1 [facility] 100 mg 6-27 10-07 TABLET BY ity of tablet 00:00: 00:00 [facility] 00 :00 EVERY DAY Medical Branch FLUTICASONE 0 Yes [id number] SPRAY 2 [facility] PROPIONATE 6-07 SPRAYS ity of 50 00:00: INTO EACH [place] mcg/actuati 00 NOSTRIL Medic al on nasal EVERY DAY Branch spray FLUTICASONE 0 Yes [id number] SPRAY 2 [facility] PROPIONATE 6-07 SPRAYS ity of 50 00:00: INTO EACH [place] mcg/actuati 00 NOSTRIL Medic al on nasal EVERY DAY Branch spray FLUTICASONE 2021- No [id number] SPRAY 2 [facility] PROPIONATE 6-07 09-07 SPRAYS ity of 50 00:00: 00:00 INTO EACH [place] mcg/actuati 00 :00 NOSTRIL Medic al on nasal EVERY DAY Branch spray FLUTICASONE 2- No [id number] SPRAY 2 [facility] PROPIONATE 01-04 SPRAYS ity of 50 00:00: 00:00 INTO EACH [facility]/actuati 00 :00 NOSTRIL Medic al on nasal EVERY DAY Branch spray blood sugar 2021-0 Yes [id number] Use 6 U nivers diagnostic 4-12 times ity of (CONTOUR 00:00: [place] NEXT TEST 00 E11.69 Medical STRIPS) Branch strip blood sugar 2-0 Yes [id number] Use 6 [facility] diagnostic 4-12 times ity of (CONTOUR 00:00: [place]. [place] NEXT TEST 00 E11.69 Medical STRIPS) Branch strip blood sugar 2022-0 Yes [id number] Use 6 [facility] diagnostic 4-12 times ity of (CONTOUR 00:00: daily. [place] NEXT TEST 00 E11.69 Medical STRIPS) Branch strip blood sugar 2022-0 Yes [id number] Use 6 [facility] diagnostic 4-12 times ity of (CONTOUR 00:00: daily. [place] NEXT TEST 00 E11.69 Medical STRIPS) Branch strip blood sugar 2022-0 Yes [id number] Use 6 [facility]ivers diagnostic 4-12 times ity of (CONTOUR 00:00: daily. [place] NEXT TEST 00 E11.69 Medical STRIPS) Branch strip blood sugar 2022-0 Yes [id number] Use 6 [facility]ivers diagnostic 4-12 times ity of (CONTOUR 00:00: daily. [place] NEXT TEST 00 E11.69 Medical STRIPS) Branch strip blood sugar 2022-0 Yes [id number] Use 6 [facility] diagnostic 4-12 times ity of (CONTOUR 00:00: daily. [place] NEXT TEST 00 E11.69 Medical STRIPS) Branch strip blood sugar 2022-0 Yes [id number] Use 6 [facility]ivers diagnostic 4-12 times ity of (CONTOUR 00:00: daily. [place] NEXT TEST 00 E11.69 Medical STRIPS) Branch strip blood sugar 2022-0 Yes [id number] Use 6 [facility] diagnostic 4-12 times ity of (CONTOUR 00:00: daily. [place] NEXT TEST 00 E11.69 Medical STRIPS) Branch strip blood sugar 2022-0 Yes [id number] Use 6 [facility]ivers diagnostic 4-12 times ity of (CONTOUR 00:00: daily. [place] NEXT TEST E11.69 Medical STRIPS) Branch strip blood sugar 2022-0 Yes [id number] Use 6 [facility] nivers diagnostic 4-12 times ity of (CONTOUR 00:00: daily. [place] NEXT TEST E11.69 Medical STRIPS) Branch strip blood sugar 2022-0 Yes [id number] Use 6 [facility] diagnostic 4-12 times ity of (CONTOUR 00:00: daily. [place] NEXT TEST E11.69 Medical STRIPS) Branch strip blood sugar 2022-0 Yes [id number] Use 6 [facility]ivers diagnostic 4-12 times ity of (CONTOUR 00:00: daily. [place] NEXT TEST E11.69 Medical STRIPS) Branch strip blood sugar 2022-0 Yes [id number] Use 6 [facility] diagnostic 4-12 times ity of (CONTOUR 00:00: daily. [place] NEXT TEST E11.69 Medical STRIPS) Branch strip blood sugar 2022-0 Yes [id number] Use 6 U [facility]ivers diagnostic 4-12 times ity of (CONTOUR 00:00: daily. [place] NEXT TEST E11.69 Medical STRIPS) Branch strip blood sugar 2022-0 Yes [id number] Use 6 [facility] diagnostic 4-12 times ity of (CONTOUR 00:00: daily. [place] NEXT TEST E11.69 Medical STRIPS) Branch strip blood sugar 2022-0 Yes [id number] Use 6 U [facility]ivers diagnostic 4-12 times ity of (CONTOUR 00:00: daily. [place] NEXT TEST E11.69 Medical STRIPS) Branch strip blood sugar 2022-0 Yes [id number] Use 6 U [facility]ivers diagnostic 4-12 times ity of (CONTOUR 00:00: daily. [place] NEXT TEST E11.69 Medical STRIPS) Branch strip blood sugar 2022-0 Yes [id number] Use 6 U [facility]ivers diagnostic 4-12 times ity of (CONTOUR 00:00: daily. [place] NEXT TEST E11.69 Medical STRIPS) Branch strip blood sugar 2022-0 Yes [id number] Use 6 [facility] diagnostic 4-12 times ity of (CONTOUR 00:00: daily. [place] NEXT TEST E11.69 Medical STRIPS) Branch strip blood sugar 2022-0 Yes [id number] Use 6 [facility] diagnostic 4-12 times ity of (CONTOUR 00:00: daily. [place] NEXT TEST 00 E11.69 Medical STRIPS) Branch strip blood sugar 2022-0 Yes [id number] Use 6 [facility]ivers diagnostic 4-12 times ity of (CONTOUR 00:00: daily. [place] NEXT TEST E11.69 Medical STRIPS) Branch strip blood sugar 2022-0 Yes [id number] Use 6 U [facility]ivers diagnostic 4-12 times ity of (CONTOUR 00:00: daily. [place] NEXT TEST E11.69 Medical STRIPS) Branch strip blood sugar 2022-0 Yes [id number] Use 6 [facility] diagnostic 4-12 times ity of (CONTOUR 00:00: daily. [place] NEXT TEST E11.69 Medical STRIPS) Branch strip blood sugar 2022-0 Yes [id number] Use 6 [facility] diagnostic 4-12 times ity of (CONTOUR 00:00: daily. [place] NEXT TEST E11.69 Medical STRIPS) Branch strip blood sugar 2022-0 Yes [id number] Use 6 [facility] diagnostic 4-12 times ity of (CONTOUR 00:00: daily. [place] NEXT TEST E11.69 Medical STRIPS) Branch strip blood sugar 2022-0 Yes [id number] Use 6 [facility] diagnostic 4-12 times ity of (CONTOUR 00:00: daily. [place] NEXT TEST E11.69 Medical STRIPS) Branch strip blood sugar 2022-0 Yes [id number] Use 6 U nivers diagnostic 4-12 times ity of (CONTOUR 00:00: daily. [place] NEXT TEST E11.69 Medical STRIPS) Branch strip blood sugar 2022-0 Yes [id number] Use 6 [facility] diagnostic 4-12 times ity of (CONTOUR 00:00: daily. [place] NEXT TEST E11.69 Medical STRIPS) Branch strip blood sugar 2022-0 Yes [id number] Use 6 [facility] diagnostic 4-12 times ity of (CONTOUR 00:00: daily. [place] NEXT TEST E11.69 Medical STRIPS) Branch strip blood sugar 2022-0 Yes [id number] Use 6 [facility]ivers diagnostic 4-12 times ity of (CONTOUR 00:00: daily. [place] NEXT TEST E11.69 Medical STRIPS) Branch strip blood sugar 2022-0 Yes [id number] Use 6 [facility] diagnostic 4-12 times ity of (CONTOUR 00:00: daily. [place] NEXT TEST 00 E11.69 Medical STRIPS) Branch strip blood sugar 2022-0 Yes [id number] Use 6 [facility] diagnostic 4-12 times ity of (CONTOUR 00:00: daily. [place] NEXT TEST E11.69 Medical STRIPS) Branch strip blood sugar 2022-0 Yes [id number] Use 6 [facility] diagnostic 4-12 times ity of (CONTOUR 00:00: daily. [place] NEXT TEST E11.69 Medical STRIPS) Branch strip blood sugar 2022-0 Yes [id number] Use 6 [facility] diagnostic 4-12 times ity of (CONTOUR 00:00: daily. [place] NEXT TEST 00 E11.69 Medical STRIPS) Branch strip blood sugar 2022-0 Yes [id number] Use 6 U [facility]ivers diagnostic 4-12 times ity of (CONTOUR 00:00: daily. [place] NEXT TEST 00 E11.69 Medical STRIPS) Branch strip blood sugar 2022-0 Yes [id number] Use 6 [facility] diagnostic 4-12 times ity of (CONTOUR 00:00: daily. [place] NEXT TEST E11.69 Medical STRIPS) Branch strip blood sugar 2022-0 Yes [id number] Use 6 [facility] diagnostic 4-12 times ity of (CONTOUR 00:00: daily. [place] NEXT TEST E11.69 Medical STRIPS) Branch strip blood sugar 2022-0 Yes [id number] Use 6 U nivers diagnostic 4-12 times ity of (CONTOUR 00:00: daily. [place] NEXT TEST 00 E11.69 Medical STRIPS) Branch strip blood sugar 2022-0 Yes [id number] Use 6 [facility] diagnostic 4-12 times ity of (CONTOUR 00:00: daily. [place] NEXT TEST 00 E11.69 Medical STRIPS) Branch strip blood sugar 2022-0 Yes [id number] Use 6 [facility] diagnostic 4-12 times ity of (CONTOUR 00:00: daily. [place] NEXT TEST 00 E11.69 Medical STRIPS) Branch strip blood sugar 2022-0 Yes [id number] Use 6 [facility] diagnostic 4-12 times ity of (CONTOUR 00:00: daily. [place] NEXT TEST 00 E11.69 Medical STRIPS) Branch strip blood sugar 2022-0 Yes [id number] Use 6 [facility] diagnostic 4-12 times ity of (CONTOUR 00:00: daily. [place] NEXT TEST 00 E11.69 Medical STRIPS) Branch strip blood sugar 2022-0 Yes [id number] Use 6 [facility]ivers diagnostic 4-12 times ity of (CONTOUR 00:00: daily. [place] NEXT TEST E11.69 Medical STRIPS) Branch strip blood sugar 2022-0 Yes [id number] Use 6 [facility] diagnostic 4-12 times ity of (CONTOUR 00:00: daily. [place] NEXT TEST E11.69 Medical STRIPS) Branch strip blood sugar 2022-0 Yes [id number] Use 6 [facility] diagnostic 4-12 times ity of (CONTOUR 00:00: daily. [place] NEXT TEST 00 E11.69 Medical STRIPS) Branch strip blood sugar 2022-0 Yes [id number] Use 6 [facility] diagnostic 4-12 times ity of (CONTOUR 00:00: daily. [place] NEXT TEST 00 E11.69 Medical STRIPS) Branch strip blood sugar 2022-0 Yes [id number] Use 6 U nivers diagnostic 4-12 times ity of (CONTOUR 00:00: daily. [place] NEXT TEST 00 E11.69 Medical STRIPS) Branch strip blood sugar 2022-0 Yes [id number] Use 6 U nivers diagnostic 4-12 times ity of (CONTOUR 00:00: daily. [place] NEXT TEST 00 E11.69 Medical STRIPS) Branch strip blood sugar 2022-0 Yes [id number] Use 6 U nivers diagnostic 4-12 times ity of (CONTOUR 00:00: daily. [place] NEXT TEST 00 E11.69 Medical STRIPS) Branch strip blood sugar 2022-0 Yes [id number] Use 6 U nivers diagnostic 4-12 times ity of (CONTOUR 00:00: daily. [place] NEXT TEST 00 E11.69 Medical STRIPS) Branch strip blood sugar 2022-0 Yes [id number] Use 6 U nivers diagnostic 4-12 times ity of (CONTOUR 00:00: daily. [place] NEXT TEST 00 E11.69 Medical STRIPS) Branch strip blood sugar 2022-0 Yes [id number] Use 6 U nivers diagnostic 4-12 times ity of (CONTOUR 00:00: daily. [place] NEXT TEST 00 E11.69 Medical STRIPS) Branch strip blood sugar 2022-0 Yes [id number] Use 6 U nivers diagnostic 4-12 times ity of (CONTOUR 00:00: daily. [place] NEXT TEST 00 E11.69 Medical STRIPS) Branch strip blood sugar 2021-0 Yes [id number] Use 6 U nivers diagnostic 4-12 times ity of (CONTOUR 00:00: daily. [place] NEXT TEST 00 E11.69 Medical STRIPS) Branch strip GABAPENTIN 2021-0 Yes TAKE 1 [facility] 400 mg 3-23 CAPSULE BY ity of capsule 00:00: MOUTH 00 THREE Medical TIMES A Branch DAY GABAPENTIN 2-0 Yes TAKE 1 [facility] 400 mg 3-23 CAPSULE BY ity of capsule 00:00: MOUTH 00 THREE Medical TIMES A Branch DAY GABAPENTIN 2021-0 Yes TAKE 1 [facility] 400 mg 3-23 CAPSULE BY ity of capsule 00:00: MOUTH 00 THREE Medical TIMES A Branch DAY GABAPENTIN 2021-0 Yes TAKE 1 [facility] 400 mg 3-23 CAPSULE BY ity of capsule 00:00: MOUTH 00 THREE Medical TIMES A Branch DAY GABAPENTIN 2-0 Yes TAKE 1 [facility] 400 mg 3-23 CAPSULE BY ity of capsule 00:00: MOUTH 00 THREE Medical TIMES A Branch DAY GABAPENTIN 2-0 Yes TAKE 1 [facility] 400 mg 3-23 CAPSULE BY ity of capsule 00:00: MOUTH 00 THREE Medical TIMES A Branch DAY GABAPENTIN 2022-0 2022- No TAKE 1 Univ ers 400 mg 3-23 -21 CAPSULE BY ity of capsule 00:00: 00:00 MOUTH [place] 00 :00 THREE Medical TIMES A Branch DAY GABAPENTIN 2022-0 2022- No TAKE 1 Univ ers 400 mg 3-23 -21 CAPSULE BY ity of capsule 00:00: 00:00 MOUTH [place] 00 :00 THREE Medical TIMES A Branch DAY CREON 2020- Yes [id number] TAKE 1 [facility] s 12,000-38,0 0-05 CAPSULE BY it y of 60,000 00:00: MOUTH 3 [place] 00 (THREE) Medical capsule TIMES Branch DAILY WITH MEALS. CREON 2020-07 Yes [id number] TAKE 1 [facility] 12,000-38,0 0-05 CAPSULE BY it y of 60,000 00:00: MOUTH 3 [place] unit 00 (THREE) Medical capsule TIMES Branch DAILY WITH MEALS. CREON 2020-07 Yes [id number] TAKE 1 [facility] s 12,000-38,0 0-05 CAPSULE BY it y of 60, 00:00: MOUTH 3 [place] unit 00 (THREE) Medical capsule TIMES Branch DAILY WITH MEALS. CREON 2020-07 Yes [id number] TAKE 1 [facility] s 12,000-38,0 0-05 CAPSULE BY it y of 60, 00:00: MOUTH 3 [place] unit 00 (THREE) Medical capsule TIMES Branch DAILY WITH MEALS. CRE2020 Yes [id number] TAKE 1 [facility] 12,000-38,0 0-05 CAPSULE BY it y of 60, 00:00: MOUTH 3 [place] unit 00 (THREE) Medical capsule TIMES Branch DAILY WITH MEALS. CREON 2020-07 Yes [id number] TAKE 1 [facility] 12,000-38,0 0-05 CAPSULE BY it y of 60, 00:00: MOUTH 3 [place] unit 00 (THREE) Medical capsule TIMES Branch DAILY WITH MEALS. CRE2020 Yes [id number] TAKE 1 [facility] 12,000-38,0 0-05 CAPSULE BY it y of 60, 00:00: MOUTH 3 [place] unit 00 (THREE) Medical capsule TIMES Branch DAILY WITH MEALS. CRE2020 Yes [id number] TAKE 1 [facility] 12,000-38,0 0-05 CAPSULE BY it y of 60, 00:00: MOUTH 3 [place] unit 00 (THREE) Medical capsule TIMES Branch DAILY WITH MEALS. CRE2020 Yes [id number] TAKE 1 [facility] 12,000-38,0 0-05 CAPSULE BY it y of 60, 00:00: MOUTH 3 [place] unit 00 (THREE) Medical capsule TIMES Branch DAILY WITH MEALS. CREON 2020-07 Yes [id number] TAKE 1 [facility] 12,000-38,0 0-05 CAPSULE BY it y of 00 -60,000 00:00: MOUTH 3 [place] 00 (THREE) Medical capsule TIMES Branch DAILY WITH MEALS. CREON 2020-07 Yes [id number] TAKE 1 [facility] 12,000-38,0 0-05 CAPSULE BY it y of 60, 00:00: MOUTH 3 [place] unit 00 (THREE) Medical capsule TIMES Branch DAILY WITH MEALS. CREON 2020-07 Yes [id number] TAKE 1 [facility] 12,000-38,0 0-05 CAPSULE BY it y of 60, 00:00: MOUTH 3 [place] unit 00 (THREE) Medical capsule TIMES Branch DAILY WITH MEALS. CREON 2020-07 Yes [id number] TAKE 1 [facility] s 12,000-38,0 0-05 CAPSULE BY it y of 60, 00:00: MOUTH 3 [place] unit 00 (THREE) Medical capsule TIMES Branch DAILY WITH MEALS. CREON 2020-07 Yes [id number] TAKE 1 [facility] 12,000-38,0 0-05 CAPSULE BY it y of 60, 00:00: MOUTH 3 [place] unit 00 (THREE) Medical capsule TIMES Branch DAILY WITH MEALS. CREON 2020-07 Yes [id number] TAKE 1 [facility] 12,000-38,0 0-05 CAPSULE BY it y of 60, 00:00: MOUTH 3 [place] unit 00 (THREE) Medical capsule TIMES Branch DAILY WITH MEALS. CREON 2020-07 Yes [id number] TAKE 1 [facility] 12,000-38,0 0-05 CAPSULE BY it y of 60, 00:00: MOUTH 3 [place] unit 00 (THREE) Medical capsule TIMES Branch DAILY WITH MEALS. CREON 2020-07 Yes [id number] TAKE 1 [facility] 12,000-38,0 0-05 CAPSULE BY it y of 60, 00:00: MOUTH 3 [place] unit 00 (THREE) Medical capsule TIMES Branch DAILY WITH MEALS. CREON 2020-07 Yes [id number] TAKE 1 [facility] 12,000-38,0 0-05 CAPSULE BY it y of 60, 00:00: MOUTH 3 [place] 00 (THREE) Medical capsule TIMES Branch DAILY WITH MEALS. CREON 2020-07 Yes [id number] TAKE 1 [facility] s 12,000-38,0 0-05 CAPSULE BY it y of 60, 00:00: MOUTH 3 [place] unit 00 (THREE) Medical capsule TIMES Branch DAILY WITH MEALS. CREON 2020-07 Yes [id number] TAKE 1 [facility] s 12,000-38,0 0-05 CAPSULE BY it y of 60, 00:00: MOUTH 3 [place] unit 00 (THREE) Medical capsule TIMES Branch DAILY WITH MEALS. CRE2020 Yes [id number] TAKE 1 [facility] s 12,000-38,0 0-05 CAPSULE BY it y of 60, 00:00: MOUTH 3 [place] unit 00 (THREE) Medical capsule TIMES Branch DAILY WITH MEALS. CREON 2020-07 Yes [id number] TAKE 1 [facility] 12,000-38,0 0-05 CAPSULE BY it y of 60, 00:00: MOUTH 3 [place] unit 00 (THREE) Medical capsule TIMES Branch DAILY WITH MEALS. CRE2020 Yes [id number] TAKE 1 [facility] 12,000-38,0 0-05 CAPSULE BY it y of 60, 00:00: MOUTH 3 [place] unit 00 (THREE) Medical capsule TIMES Branch DAILY WITH MEALS. CRE2020 Yes [id number] TAKE 1 [facility] 12,000-38,0 0-05 CAPSULE BY it y of 60, 00:00: MOUTH 3 [place] unit 00 (THREE) Medical capsule TIMES Branch DAILY WITH MEALS. CRE2020 Yes [id number] TAKE 1 [facility] 12,000-38,0 0-05 CAPSULE BY it y of 60, 00:00: MOUTH 3 [place] 00 (THREE) Medical capsule TIMES Branch DAILY WITH MEALS. CRE2020 Yes [id number] TAKE 1 [facility] s 12,000-38,0 0-05 CAPSULE BY it y of 60, 00:00: MOUTH 3 [place] 00 (THREE) Medical capsule TIMES Branch DAILY WITH MEALS. CRE2020 Yes [id number] TAKE 1 [facility] s 12,000-38,0 0-05 CAPSULE BY it y of 60, 00:00: MOUTH 3 [place] 00 (THREE) Medical capsule TIMES Branch DAILY WITH MEALS. CREON 2020-07 Yes [id number] TAKE 1 [facility] s 12,000-38,0 0-05 CAPSULE BY it y of 60, 00:00: MOUTH 3 [place] 00 (THREE) Medical capsule TIMES Branch DAILY WITH MEALS. CREON 2020-07 Yes [id number] TAKE 1 [facility] 12,000-38,0 0-05 CAPSULE BY it y of 00 60, 00:00: MOUTH 3 [place] 00 (THREE) Medical capsule TIMES Branch DAILY WITH MEALS. CREON 2020-07 Yes [id number] TAKE 1 [facility] 12,000-38,0 0-05 CAPSULE BY it y of 60, 00:00: MOUTH 3 [place] 00 (THREE) Medical capsule TIMES Branch DAILY WITH MEALS. CREON 2020-07 Yes [id number] TAKE 1 [facility] 12,000-38,0 0-05 CAPSULE BY it y of 60, 00:00: MOUTH 3 [place] unit 00 (THREE) Medical capsule TIMES Branch DAILY WITH MEALS. CREON 2020-07 Yes [id number] TAKE 1 [facility] s 12,000-38,0 0-05 CAPSULE BY it y of 60, 00:00: MOUTH 3 [place] unit 00 (THREE) Medical capsule TIMES Branch DAILY WITH MEALS. CRE2020 Yes [id number] TAKE 1 [facility] 12,000-38,0 0-05 CAPSULE BY it y of 60, 00:00: MOUTH 3 [place] unit 00 (THREE) Medical capsule TIMES Branch DAILY WITH MEALS. CREON 2020-07 Yes [id number] TAKE 1 [facility] 12,000-38,0 0-05 CAPSULE BY it y of 60, 00:00: MOUTH 3 [place] unit 00 (THREE) Medical capsule TIMES Branch DAILY WITH MEALS. CREON 2020-07 Yes [id number] TAKE 1 [facility] 12,000-38,0 0-05 CAPSULE BY it y of 00 60,000 00:00: MOUTH 3 [place] 00 (THREE) Medical capsule TIMES Branch DAILY WITH MEALS. CREON 2020-07 Yes [id number] TAKE 1 [facility] 12,000-38,0 0-05 CAPSULE BY it y of 00 -60,000 00:00: MOUTH 3 [place] unit 00 (THREE) Medical capsule TIMES Branch DAILY WITH MEALS. CREON 2020-07 Yes [id number] TAKE 1 [facility] 12,000-38,0 0-05 CAPSULE BY it y of 00 -60,000 00:00: MOUTH 3 [place] unit 00 (THREE) Medical capsule TIMES Branch DAILY WITH MEALS. CREON 2020-07 Yes [id number] TAKE 1 [facility] 12,000-38,0 0-05 CAPSULE BY it y of 60, 00:00: MOUTH 3 [place] unit 00 (THREE) Medical capsule TIMES Branch DAILY WITH MEALS. CREON 2020-07- No [id number] TAKE 1 Un[facility] rs 12,000-38,0 0-05 11-17 CAPSULE BY i ty of 00:00: 00:00 MOUTH 3 [place] unit 00 :00 (THREE) Medical capsule TIMES Branch DAILY WITH MEALS. insulin 2019-07 Yes USE IN [facility] lispro, 0-14 INSULIN ity of human, 00:00: PUMP UP TO [place] (HUMALOG 00 100 UNITS Medica l U-100 DAILY. Branch INSULIN) DX:E10.65 100 unit/mL injection insulin 2019-07 Yes USE IN [facility] lispro, 0-14 INSULIN ity of human, 00:00: PUMP UP TO [place] (HUMALOG 00 100 UNITS Medica l U-100 DAILY. Branch INSULIN) DX:E10.65 100 unit/mL injection insulin 2019-07 Yes USE IN [facility] lispro, 0-14 INSULIN ity of human, 00:00: PUMP UP TO [place] (HUMALOG 00 100 UNITS Medica l U-100 DAILY. Branch INSULIN) DX:E10.65 100 unit/mL injection insulin 2019-07 Yes USE IN [facility] lispro, 0-14 INSULIN ity of human, 00:00: PUMP UP TO [place] (HUMALOG 00 100 UNITS Medica l U-100 DAILY. 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 Branch INSULIN) DX:E10.65 100 unit/mL injection insulin 2019-07 Yes USE IN [facility] lispro, 0-14 INSULIN ity of human, 00:00: PUMP UP TO [place] (HUMALOG 00 100 UNITS Medica l U-100 DAILY. 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 Branch INSULIN) DX:E10.65 100 unit/mL injection insulin 2020- Yes USE IN [facility] lispro, 0-14 INSULIN ity of human, 00:00: PUMP UP TO [place] (HUMALOG 00 100 UNITS Medica l U-100 DAILY. Branch INSULIN) DX:E10.65 100 unit/mL injection insulin 2020- Yes USE IN [facility] lispro, 0-14 INSULIN ity of human, 00:00: PUMP UP TO [place] (HUMALOG 00 100 UNITS Medica l U-100 DAILY. Branch INSULIN) DX:E10.65 100 unit/mL injection insulin 2020- Yes USE IN [facility] lispro, 0-14 INSULIN ity of human, 00:00: PUMP UP TO [place] (HUMALOG 00 100 UNITS Medica l U-100 DAILY. Branch INSULIN) DX:E10.65 100 unit/mL injection insulin 2020- Yes USE IN [facility] lispro, 0-14 INSULIN ity of human, 00:00: PUMP UP TO [place] (HUMALOG 00 100 UNITS Medica l U-100 DAILY. Branch INSULIN) DX:E10.65 100 unit/mL injection insulin 2020- Yes USE IN [facility] lispro, 0-14 INSULIN ity of human, 00:00: PUMP UP TO [place] (HUMALOG 00 100 UNITS Medica l U-100 DAILY. Branch INSULIN) DX:E10.65 100 unit/mL injection insulin 2020- Yes USE IN [facility] lispro, 0-14 INSULIN ity of human, 00:00: PUMP UP TO [place] (HUMALOG 00 100 UNITS Medica l U-100 DAILY. Branch INSULIN) DX:E10.65 100 unit/mL injection insulin 2020- Yes USE IN [facility] lispro, 0-14 INSULIN ity of human, 00:00: PUMP UP TO [place] (HUMALOG 00 100 UNITS Medica l U-100 DAILY. Branch INSULIN) DX:E10.65 100 unit/mL injection insulin 2020- Yes USE IN [facility] lispro, 0-14 INSULIN ity of human, 00:00: PUMP UP TO [place] (HUMALOG 00 100 UNITS Medica l U-100 DAILY. Branch INSULIN) DX:E10.65 100 unit/mL injection insulin 2020- Yes USE IN [facility] lispro, 0-14 INSULIN ity of human, 00:00: PUMP UP TO [place] (HUMALOG 00 100 UNITS Medica l U-100 DAILY. Branch INSULIN) DX:E10.65 100 unit/mL injection insulin 2020- Yes USE IN [facility] lispro, 0-14 INSULIN ity of human, 00:00: PUMP UP TO [place] (HUMALOG 00 100 UNITS Medica l U-100 DAILY. Branch INSULIN) DX:E10.65 100 unit/mL injection insulin 2020- Yes USE IN [facility] lispro, 0-14 INSULIN ity of human, 00:00: PUMP UP TO [place] (HUMALOG 00 100 UNITS Medica l U-100 DAILY. Branch INSULIN) DX:E10.65 100 unit/mL injection insulin 2019- Yes USE IN [facility] lispro, 0-14 INSULIN ity of human, 00:00: PUMP UP TO [place] (HUMALOG 00 100 UNITS Medica l U-100 DAILY. Branch INSULIN) DX:E10.65 100 unit/mL injection insulin 2020- Yes USE IN [facility] lispro, 0-14 INSULIN ity of human, 00:00: PUMP UP TO [place] (HUMALOG 00 100 UNITS Medica l U-100 DAILY. Branch INSULIN) DX:E10.65 100 unit/mL injection insulin 2019- Yes USE IN [facility] lispro, 0-14 INSULIN ity of human, 00:00: PUMP UP TO [place] (HUMALOG 00 100 UNITS Medica l U-100 DAILY. Branch INSULIN) DX:E10.65 100 unit/mL injection insulin 2019- Yes USE IN [facility] lispro, 0-14 INSULIN ity of human, 00:00: PUMP UP TO [place] (HUMALOG 00 100 UNITS Medica l U-100 DAILY. 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 Branch INSULIN) DX:E10.65 100 unit/mL injection insulin 2020- Yes USE IN [facility] lispro, 0-14 INSULIN ity of human, 00:00: PUMP UP TO [place] (HUMALOG 00 100 UNITS Medica l U-100 DAILY. Branch INSULIN) DX:E10.65 100 unit/mL injection insulin 2020- Yes USE IN [facility] lispro, 0-14 INSULIN ity of human, 00:00: PUMP UP TO [place] (HUMALOG 00 100 UNITS Medica l U-100 DAILY. Branch INSULIN) DX:E10.65 100 unit/mL injection insulin 2020- Yes USE IN [facility] lispro, 0-14 INSULIN ity of human, 00:00: PUMP UP TO [place] (HUMALOG 00 100 UNITS Medica l U-100 DAILY. Branch INSULIN) DX:E10.65 100 unit/mL injection insulin 2020- Yes USE IN [facility] lispro, 0-14 INSULIN ity of human, 00:00: PUMP UP TO [place] (HUMALOG 00 100 UNITS Medica l U-100 DAILY. Branch INSULIN) DX:E10.65 100 unit/mL injection insulin 2020-1 Yes USE IN [facility] lispro, 0-14 INSULIN ity of human, 00:00: PUMP UP TO [place] (HUMALOG 00 100 UNITS Medica l U-100 DAILY. Branch INSULIN) DX:E10.65 100 unit/mL injection insulin 2020- Yes USE IN [facility] lispro, 0-14 INSULIN ity of human, 00:00: PUMP UP TO [place] (HUMALOG 00 100 UNITS Medica l U-100 DAILY. Branch INSULIN) DX:E10.65 100 unit/mL injection insulin 2020- Yes USE IN [facility] lispro, 0-14 INSULIN ity of human, 00:00: PUMP UP TO [place] (HUMALOG 00 100 UNITS Medica l U-100 DAILY. Branch INSULIN) DX:E10.65 100 unit/mL injection insulin 2020- Yes USE IN [facility] lispro, 0-14 INSULIN ity of human, 00:00: PUMP UP TO [place] (HUMALOG 00 100 UNITS Medica l U-100 DAILY. Branch INSULIN) DX:E10.65 100 unit/mL injection insulin 2020- Yes USE IN [facility] lispro, 0-14 INSULIN ity of human, 00:00: PUMP UP TO [place] (HUMALOG 00 100 UNITS Medica l U-100 DAILY. Branch INSULIN) DX:E10.65 100 unit/mL injection insulin 2020-1 Yes USE IN [facility], 0-14 INSULIN ity of human, 00:00: PUMP UP TO [place] (HUMALOG 00 100 UNITS Medica l U-100 DAILY. Branch INSULIN) DX:E10.65 100 unit/mL injection insulin 2020-1 Yes USE IN [facility], 0-14 INSULIN ity of human, 00:00: PUMP UP TO [place] (HUMALOG 00 100 UNITS Medica l U-100 DAILY. Branch INSULIN) DX:E10.65 100 unit/mL injection insulin 2020- Yes USE IN [facility], 0-14 INSULIN ity of human, 00:00: PUMP UP TO [place] (HUMALOG 00 100 UNITS Medica l U-100 DAILY. Branch INSULIN) DX:E10.65 100 unit/mL injection insulin 2020- Yes USE IN [facility] lis[facility], 0-14 INSULIN ity of human, 00:00: PUMP UP TO [place] (HUMALOG 00 100 UNITS Medica l U-100 DAILY. Branch INSULIN) DX:E10.65 100 unit/mL injection insulin 2020- Yes USE IN [facility] lispro, 0-14 INSULIN ity of human, 00:00: PUMP UP TO [place] (HUMALOG 00 100 UNITS Medica l U-100 DAILY. Branch INSULIN) DX:E10.65 100 unit/mL injection insulin 2019- Yes USE IN [facility] lis[facility], 0-14 INSULIN ity of human, 00:00: PUMP UP TO [place] (HUMALOG 00 100 UNITS Medica l U-100 DAILY. Branch INSULIN) DX:E10.65 100 unit/mL injection insulin 2019- Yes USE IN [facility] lis[facility], 0-14 INSULIN ity of human, 00:00: PUMP UP TO [place] (HUMALOG 00 100 UNITS Medica l U-100 DAILY. Branch INSULIN) DX:E10.65 100 unit/mL injection insulin 2020- Yes USE IN [facility] lis[facility], 0-14 INSULIN ity of human, 00:00: PUMP UP TO [place] (HUMALOG 00 100 UNITS Medica l U-100 DAILY. 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 Branch INSULIN) DX:E10.65 100 unit/mL injection insulin 2020-1 Yes USE IN [facility] lis[facility], 0-14 INSULIN ity of human, 00:00: PUMP UP TO [place] (HUMALOG 00 100 UNITS Medica l U-100 DAILY. Branch INSULIN) DX:E10.65 100 unit/mL injection insulin 2020- Yes USE IN [facility] lis[facility], 0-14 INSULIN ity of human, 00:00: PUMP UP TO [place] (HUMALOG 00 100 UNITS Medica l U-100 DAILY. Branch INSULIN) DX:E10.65 100 unit/mL injection insulin 2020- Yes USE IN [facility] lis[facility], 0-14 INSULIN ity of human, 00:00: PUMP UP TO [place] (HUMALOG 00 100 UNITS Medica l U-100 DAILY. Branch INSULIN) DX:E10.65 100 unit/mL injection insulin 2020- Yes USE IN [facility] lis[facility], 0-14 INSULIN ity of human, 00:00: PUMP UP TO [place] (HUMALOG 00 100 UNITS Medica l U-100 DAILY. Branch INSULIN) DX:E10.65 100 unit/mL injection insulin 2020- Yes USE IN [facility], 0-14 INSULIN ity of human, 00:00: PUMP UP TO [place] (HUMALOG 00 100 UNITS Medica l U-100 DAILY. 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 Branch INSULIN) DX:E10.65 100 unit/mL injection insulin 2020- Yes USE IN [facility], 0-14 INSULIN ity of human, 00:00: PUMP UP TO [place] (HUMALOG 00 100 UNITS Medica l U-100 DAILY. Branch INSULIN) DX:E10.65 100 unit/mL injection insulin 2020- Yes USE IN [facility], 0-14 INSULIN ity of human, 00:00: PUMP UP TO [place] (HUMALOG 00 100 UNITS Medica l U-100 DAILY. Branch INSULIN) DX:E10.65 100 unit/mL injection insulin 2019-07 Yes USE IN [facility], 0-14 INSULIN ity of human, 00:00: PUMP UP TO [place] (HUMALOG 00 100 UNITS Medica l U-100 DAILY. Branch INSULIN) DX:E10.65 100 unit/mL injection insulin 2019-07 Yes USE IN [facility], 0-14 INSULIN ity of human, 00:00: PUMP UP TO [place] (HUMALOG 00 100 UNITS Medica l U-100 DAILY. Branch INSULIN) DX:E10.65 100 unit/mL injection insulin 2019-07 Yes USE IN [facility], 0-14 INSULIN ity of human, 00:00: PUMP UP TO [place] (HUMALOG 00 100 UNITS Medica l U-100 DAILY. Branch INSULIN) DX:E10.65 100 unit/mL injection ibuprofen 2019-0 Yes TAKE 2 [facility] 200 mg 9-14 TABLETS BY ity of tablet 00:00: MOUTH 00 EVERY 6 Medical HOURS Branch NEEDED WITH FOOD ibuprofen 2020-0 Yes TAKE 2 [facility] 200 mg 9-14 TABLETS BY ity of tablet 00:00: MOUTH 00 EVERY 6 Medical HOURS Branch NEEDED WITH FOOD ibuprofen 2020-0 Yes TAKE 2 [facility] 200 mg 9-14 TABLETS BY ity of tablet 00:00: MOUTH 00 EVERY 6 Medical HOURS Branch NEEDED WITH FOOD ibuprofen 2020-0 Yes TAKE 2 [facility] 200 mg 9-14 TABLETS BY ity of tablet 00:00: MOUTH 00 EVERY 6 Medical HOURS Branch NEEDED WITH FOOD ibuprofen 2020-0 Yes TAKE 2 [facility] 200 mg 9-14 TABLETS BY ity of tablet 00:00: MOUTH 00 EVERY 6 Medical HOURS Branch NEEDED WITH FOOD ibuprofen 2020-0 Yes TAKE 2 [facility] 200 mg 9-14 TABLETS BY ity of tablet 00:00: MOUTH 00 EVERY 6 Medical HOURS Branch NEEDED WITH FOOD ibuprofen 2020-0 Yes TAKE 2 [facility] 200 mg 9-14 TABLETS BY ity of tablet 00:00: MOUTH 00 EVERY 6 Medical HOURS Branch NEEDED WITH FOOD ibuprofen 2020-0 Yes TAKE 2 [facility] 200 mg 9-14 TABLETS BY ity of tablet 00:00: MOUTH 00 EVERY 6 Medical HOURS Branch NEEDED WITH FOOD ibuprofen 2020-0 Yes TAKE 2 [facility] 200 mg 9-14 TABLETS BY ity of tablet 00:00: MOUTH [place] 00 EVERY 6 Medical HOURS Branch NEEDED WITH FOOD ibuprofen 2020-0 Yes TAKE 2 [facility] 200 mg 9-14 TABLETS BY ity of tablet 00:00: MOUTH [place] 00 EVERY 6 Medical HOURS Branch NEEDED WITH FOOD ibuprofen 2020-0 Yes TAKE 2 [facility] 200 mg 9-14 TABLETS BY ity of tablet 00:00: MOUTH [place] 00 EVERY 6 Medical HOURS Branch NEEDED WITH FOOD ibuprofen 2020-0 Yes TAKE 2 [facility] 200 mg 9-14 TABLETS BY ity of tablet 00:00: MOUTH [place] 00 EVERY 6 Medical HOURS Branch NEEDED WITH FOOD ibuprofen 2020-0 Yes TAKE 2 [facility] 200 mg 9-14 TABLETS BY ity of tablet 00:00: MOUTH [place] 00 EVERY 6 Medical HOURS Branch NEEDED WITH FOOD ibuprofen 2020-0 Yes TAKE 2 [facility] 200 mg 9-14 TABLETS BY ity of tablet 00:00: MOUTH [place] 00 EVERY 6 Medical HOURS Branch NEEDED WITH FOOD ibuprofen 2020-0 Yes TAKE 2 [facility] 200 mg 9-14 TABLETS BY ity of tablet 00:00: MOUTH 00 EVERY 6 Medical HOURS Branch NEEDED WITH FOOD ibuprofen 2020-0 Yes TAKE 2 [facility] 200 mg 9-14 TABLETS BY ity of tablet 00:00: MOUTH [place] 00 EVERY 6 Medical HOURS Branch NEEDED WITH FOOD ibuprofen 2020-0 Yes TAKE 2 [facility] 200 mg 9-14 TABLETS BY ity of tablet 00:00: MOUTH [place] 00 EVERY 6 Medical HOURS Branch NEEDED WITH FOOD ibuprofen 2020-0 Yes TAKE 2 [facility] 200 mg 9-14 TABLETS BY ity of tablet 00:00: MOUTH 00 EVERY 6 Medical HOURS Branch NEEDED WITH FOOD ibuprofen 2020-0 Yes TAKE 2 [facility] 200 mg 9-14 TABLETS BY ity of tablet 00:00: MOUTH [place] 00 EVERY 6 Medical HOURS Branch NEEDED WITH FOOD ibuprofen 2020-0 Yes TAKE 2 [facility] 200 mg 9-14 TABLETS BY ity of tablet 00:00: MOUTH [place] 00 EVERY 6 Medical HOURS Branch NEEDED WITH FOOD ibuprofen 2020-0 Yes TAKE 2 [facility] 200 mg 9-14 TABLETS BY ity of tablet 00:00: MOUTH [place] 00 EVERY 6 Medical HOURS Branch NEEDED WITH FOOD ibuprofen 2020-0 Yes TAKE 2 [facility] 200 mg 9-14 TABLETS BY ity of tablet 00:00: MOUTH [place] 00 EVERY 6 Medical HOURS Branch NEEDED WITH FOOD ibuprofen 2020-0 Yes TAKE 2 [facility] 200 mg 9-14 TABLETS BY ity of tablet 00:00: MOUTH [place] 00 EVERY 6 Medical HOURS Branch NEEDED WITH FOOD ibuprofen 2020-0 Yes TAKE 2 [facility] 200 mg 9-14 TABLETS BY ity of tablet 00:00: MOUTH [place] 00 EVERY 6 Medical HOURS Branch NEEDED WITH FOOD ibuprofen 2020-0 Yes TAKE 2 [facility] 200 mg 9-14 TABLETS BY ity of tablet 00:00: MOUTH [place] 00 EVERY 6 Medical HOURS Branch NEEDED WITH FOOD ibuprofen 2020-0 Yes TAKE 2 [facility] 200 mg 9-14 TABLETS BY ity of tablet 00:00: MOUTH [place] 00 EVERY 6 Medical HOURS Branch NEEDED WITH FOOD ibuprofen 2020-0 Yes TAKE 2 [facility] 200 mg 9-14 TABLETS BY ity of tablet 00:00: MOUTH [place] 00 EVERY 6 Medical HOURS Branch NEEDED WITH FOOD ibuprofen 2020-0 Yes TAKE 2 [facility] 200 mg 9-14 TABLETS BY ity of tablet 00:00: MOUTH 00 EVERY 6 Medical HOURS Branch NEEDED WITH FOOD ibuprofen 2020-0 Yes TAKE 2 [facility] 200 mg 9-14 TABLETS BY ity of tablet 00:00: MOUTH [place] 00 EVERY 6 Medical HOURS Branch NEEDED WITH FOOD ibuprofen 2020-0 Yes TAKE 2 [facility] 200 mg 9-14 TABLETS BY ity of tablet 00:00: MOUTH [place] 00 EVERY 6 Medical HOURS Branch NEEDED WITH FOOD ibuprofen 2020-0 Yes TAKE 2 [facility] 200 mg 9-14 TABLETS BY ity of tablet 00:00: MOUTH [place] 00 EVERY 6 Medical HOURS Branch NEEDED WITH FOOD ibuprofen 2020-0 Yes TAKE 2 [facility] 200 mg 9-14 TABLETS BY ity of tablet 00:00: MOUTH 00 EVERY 6 Medical HOURS Branch NEEDED WITH FOOD ibuprofen 2020-0 Yes TAKE 2 [facility] 200 mg 9-14 TABLETS BY ity of tablet 00:00: MOUTH [place] 00 EVERY 6 Medical HOURS Branch NEEDED WITH FOOD ibuprofen 2020-0 Yes TAKE 2 [facility] 200 mg 9-14 TABLETS BY ity of tablet 00:00: MOUTH [place] 00 EVERY 6 Medical HOURS Branch NEEDED WITH FOOD ibuprofen 2020-0 Yes TAKE 2 [facility] 200 mg 9-14 TABLETS BY ity of tablet 00:00: MOUTH [place] 00 EVERY 6 Medical HOURS Branch NEEDED WITH FOOD ibuprofen 2020-0 Yes TAKE 2 [facility] 200 mg 9-14 TABLETS BY ity of tablet 00:00: MOUTH [place] 00 EVERY 6 Medical HOURS Branch NEEDED WITH FOOD ibuprofen 2020-0 Yes TAKE 2 [facility] 200 mg 9-14 TABLETS BY ity of tablet 00:00: MOUTH [place] 00 EVERY 6 Medical HOURS Branch NEEDED WITH FOOD ibuprofen 2020-0 Yes TAKE 2 [facility] 200 mg 9-14 TABLETS BY ity of tablet 00:00: MOUTH [place] 00 EVERY 6 Medical HOURS Branch NEEDED WITH FOOD ibuprofen 2020-0 Yes TAKE 2 [facility] 200 mg 9-14 TABLETS BY ity of tablet 00:00: MOUTH [place] 00 EVERY 6 Medical HOURS Branch NEEDED WITH FOOD ibuprofen 2020-0 Yes TAKE 2 [facility] 200 mg 9-14 TABLETS BY ity of tablet 00:00: MOUTH [place] 00 EVERY 6 Medical HOURS Branch NEEDED WITH FOOD ibuprofen 2020-0 Yes TAKE 2 [facility] 200 mg 9-14 TABLETS BY ity of tablet 00:00: MOUTH [place] 00 EVERY 6 Medical HOURS Branch NEEDED WITH FOOD ibuprofen 2020-0 Yes TAKE 2 [facility] 200 mg 9-14 TABLETS BY ity of tablet 00:00: MOUTH [place] 00 EVERY 6 Medical HOURS Branch NEEDED WITH FOOD ibuprofen 2020-0 2022- No TAKE 2 [facility] 200 mg 9-14 12-01 TABLETS BY ity of tablet 00:00: 00:00 MOUTH [place] 00 :00 EVERY 6 Medical HOURS Branch NEEDED WITH FOOD albuterol 2018-07 Yes [id number] 2{puff} Inhale 2 [facility] 90 1-21 Puffs ity of mcg/actuati 00:00: every 6 [place] as on inhaler 00 (six) Medical hours as Branch needed for Wheezing or Shortness of Breath. albuterol 2018-07 Yes [id number] 2{puff} Inhale 2 [facility] 90 1-21 Puffs ity of mcg/actuati 00:00: every 6 [place] [facility] on inhaler 00 (six) Medical hours as Branch needed for Wheezing or Shortness of Breath. albuterol 2018-07 Yes [id number] 2{puff} Inhale 2 [facility] 90 1-21 Puffs ity of mcg/actuati 00:00: every 6 [place] [facility] on inhaler 00 (six) Medical hours as Branch needed for Wheezing or Shortness of Breath. albuterol 2018-07 Yes [id number] 2{puff} Inhale 2 [facility] 90 1-21 Puffs ity of mcg/actuati 00:00: every 6 [place] [facility] on inhaler 00 (six) Medical hours as Branch needed for Wheezing or Shortness of Breath. albuterol 2018-07 Yes [id number] 2{puff} Inhale 2 [facility] 90 1-21 Puffs ity of mcg/actuati 00:00: every 6 [place] on inhaler 00 (six) Medical hours as Branch needed for Wheezing or Shortness of Breath. albuterol 2018-07 Yes [id number] 2{puff} Inhale 2 [facility] 90 1-21 Puffs ity of mcg/actuati 00:00: every 6 [place] on inhaler 00 (six) Medical hours as Branch needed for Wheezing or Shortness of Breath. albuterol 2018-07 Yes [id number] 2{puff} Inhale 2 [facility] 90 1-21 Puffs ity of mcg/actuati 00:00: every 6 [place] on inhaler 00 (six) Medical hours as Branch needed for Wheezing or Shortness of Breath. albuterol 2018-07 Yes [id number] 2{puff} Inhale 2 [facility] 90 1-21 Puffs ity of mcg/actuati 00:00: every 6 [place] on inhaler 00 (six) Medical hours as Branch needed for Wheezing or Shortness of Breath. albuterol 2018-07 Yes [id number] 2{puff} Inhale 2 [facility] 90 1-21 Puffs ity of mcg/actuati 00:00: every 6 [place] on inhaler 00 (six) Medical hours as Branch needed for Wheezing or Shortness of Breath. albuterol 2018-07 Yes [id number] 2{puff} Inhale 2 [facility] 90 1-21 Puffs ity of mcg/actuati 00:00: every 6 [place] on inhaler 00 (six) Medical hours as Branch needed for Wheezing or Shortness of Breath. albuterol 2018-07 Yes [id number] 2{puff} Inhale 2 [facility] 90 1-21 Puffs ity of mcg/actuati 00:00: every 6 [place] on inhaler 00 (six) Medical hours as Branch needed for Wheezing or Shortness of Breath. albuterol 2018-07 Yes [id number] 2{puff} Inhale 2 [facility] 90 1-21 Puffs ity of mcg/actuati 00:00: every 6 [place] on inhaler 00 (six) Medical hours as Branch needed for Wheezing or Shortness of Breath. albuterol 2018-07 Yes [id number] 2{puff} Inhale 2 [facility] 90 1-21 Puffs ity of mcg/actuati 00:00: every 6 [place] on inhaler 00 (six) Medical hours as Branch needed for Wheezing or Shortness of Breath. albuterol 2018-07 Yes [id number] 2{puff} Inhale 2 [facility] 90 1-21 Puffs ity of mcg/actuati 00:00: every 6 [place] on inhaler 00 (six) Medical hours as Branch needed for Wheezing or Shortness of Breath. albuterol 2018-07 Yes [id number] 2{puff} Inhale 2 [facility] 90 1-21 Puffs ity of mcg/actuati 00:00: every 6 [place] on inhaler 00 (six) Medical hours as Branch needed for Wheezing or Shortness of Breath. albuterol 2018-07 Yes [id number] 2{puff} Inhale 2 [facility] 90 1-21 Puffs ity of mcg/actuati 00:00: every 6 [place] on inhaler 00 (six) Medical hours as Branch needed for Wheezing or Shortness of Breath. albuterol 2018-07 Yes [id number] 2{puff} Inhale 2 [facility] 90 1-21 Puffs ity of mcg/actuati 00:00: every 6 [place] on inhaler 00 (six) Medical hours as Branch needed for Wheezing or Shortness of Breath. albuterol 2018-07 Yes [id number] 2{puff} Inhale 2 [facility] 90 1-21 Puffs ity of mcg/actuati 00:00: every 6 [place] on inhaler 00 (six) Medical hours as Branch needed for Wheezing or Shortness of Breath. albuterol 2018-07 Yes [id number] 2{puff} Inhale 2 [facility] 90 1-21 Puffs ity of mcg/actuati 00:00: every 6 [place] on inhaler 00 (six) Medical hours as Branch needed for Wheezing or Shortness of Breath. albuterol 2018-07 Yes [id number] 2{puff} Inhale 2 [facility] 90 1-21 Puffs ity of mcg/actuati 00:00: every 6 [place] on inhaler 00 (six) Medical hours as Branch needed for Wheezing or Shortness of Breath. albuterol 2018-07 Yes [id number] 2{puff} Inhale 2 [facility] 90 1-21 Puffs ity of mcg/actuati 00:00: every 6 [place] on inhaler 00 (six) Medical hours as Branch needed for Wheezing or Shortness of Breath. albuterol 2018-07 Yes [id number] 2{puff} Inhale 2 [facility] 90 1-21 Puffs ity of mcg/actuati 00:00: every 6 [place] on inhaler 00 (six) Medical hours as Branch needed for Wheezing or Shortness of Breath. albuterol 2018-07 Yes [id number] 2{puff} Inhale 2 [facility] 90 1-21 Puffs ity of mcg/actuati 00:00: every 6 [place] on inhaler 00 (six) Medical hours as Branch needed for Wheezing or Shortness of Breath. albuterol 2018-07 Yes [id number] 2{puff} Inhale 2 [facility] 90 1-21 Puffs ity of mcg/actuati 00:00: every 6 [place] on inhaler 00 (six) Medical hours as Branch needed for Wheezing or Shortness of Breath. albuterol 2018-07 Yes [id number] 2{puff} Inhale 2 [facility] 90 1-21 Puffs ity of mcg/actuati 00:00: every 6 [place] on inhaler 00 (six) Medical hours as Branch needed for Wheezing or Shortness of Breath. albuterol 2018-07 Yes [id number] 2{puff} Inhale 2 [facility] 90 1-21 Puffs ity of mcg/actuati 00:00: every 6 [place] on inhaler 00 (six) Medical hours as Branch needed for Wheezing or Shortness of Breath. albuterol 2018-07 Yes [id number] 2{puff} Inhale 2 [facility] 90 1-21 Puffs ity of mcg/actuati 00:00: every 6 [place] on inhaler 00 (six) Medical hours as Branch needed for Wheezing or Shortness of Breath. albuterol 2018-07 Yes [id number] 2{puff} Inhale 2 [facility] 90 1-21 Puffs ity of mcg/actuati 00:00: every 6 [place] on inhaler 00 (six) Medical hours as Branch needed for Wheezing or Shortness of Breath. albuterol 2018-07 Yes [id number] 2{puff} Inhale 2 [facility] 90 1-21 Puffs ity of mcg/actuati 00:00: every 6 [place] [facility] on inhaler 00 (six) Medical hours as Branch needed for Wheezing or Shortness of Breath. albuterol 2018-07 Yes [id number] 2{puff} Inhale 2 [facility] 90 1-21 Puffs ity of mcg/actuati 00:00: every 6 [place] [facility] on inhaler 00 (six) Medical hours as Branch needed for Wheezing or Shortness of Breath. albuterol 2018-07 Yes [id number] 2{puff} Inhale 2 [facility] 90 1-21 Puffs ity of mcg/actuati 00:00: every 6 [place] [facility] on inhaler 00 (six) Medical hours as Branch needed for Wheezing or Shortness of Breath. albuterol 2018-07 Yes [id number] 2{puff} Inhale 2 [facility] 90 1-21 Puffs ity of mcg/actuati 00:00: every 6 [place] [facility] on inhaler 00 (six) Medical hours as Branch needed for Wheezing or Shortness of Breath. albuterol 2018-07 Yes [id number] 2{puff} Inhale 2 [facility] 90 1-21 Puffs ity of mcg/actuati 00:00: every 6 [place] [facility] on inhaler 00 (six) Medical hours as Branch needed for Wheezing or Shortness of Breath. albuterol 2018-07 Yes [id number] 2{puff} Inhale 2 [facility] 90 1-21 Puffs ity of mcg/actuati 00:00: every 6 [place] [facility] on inhaler 00 (six) Medical hours as Branch needed for Wheezing or Shortness of Breath. albuterol 2018-07 Yes [id number] 2{puff} Inhale 2 [facility] 90 1-21 Puffs ity of mcg/actuati 00:00: every 6 [place] [facility] on inhaler 00 (six) Medical hours as Branch needed for Wheezing or Shortness of Breath. albuterol 2018-07 Yes [id number] 2{puff} Inhale 2 [facility] 90 1-21 Puffs ity of mcg/actuati 00:00: every 6 [place] [facility] on inhaler 00 (six) Medical hours as Branch needed for Wheezing or Shortness of Breath. albuterol 2018-07 Yes [id number] 2{puff} Inhale 2 [facility] 90 1-21 Puffs ity of mcg/actuati 00:00: every 6 [place] [facility] on inhaler 00 (six) Medical hours as Branch needed for Wheezing or Shortness of Breath. albuterol 2018-07 Yes [id number] 2{puff} Inhale 2 [facility] 90 1-21 Puffs ity of mcg/actuati 00:00: every 6 [place] [facility] on inhaler 00 (six) Medical hours as Branch needed for Wheezing or Shortness of Breath. albuterol 2018-07 Yes [id number] 2{puff} Inhale 2 [facility] 90 1-21 Puffs ity of mcg/actuati 00:00: every 6 [place] [facility] on inhaler 00 (six) Medical hours as Branch needed for Wheezing or Shortness of Breath. albuterol 2018-07 Yes [id number] 2{puff} Inhale 2 [facility] 90 1-21 Puffs ity of mcg/actuati 00:00: every 6 [place] [facility] on inhaler 00 (six) Medical hours as Branch needed for Wheezing or Shortness of Breath. albuterol 2018-07 Yes [id number] 2{puff} Inhale 2 [facility] 90 1-21 Puffs ity of mcg/actuati 00:00: every 6 [place] [facility] on inhaler 00 (six) Medical hours as Branch needed for Wheezing or Shortness of Breath. albuterol 2018-07 Yes [id number] 2{puff} Inhale 2 [facility] 90 1-21 Puffs ity of mcg/actuati 00:00: every 6 [place] [facility] on inhaler 00 (six) Medical hours as Branch needed for Wheezing or Shortness of Breath. albuterol 2018-07 Yes [id number] 2{puff} Inhale 2 [facility] 90 1-21 Puffs ity of mcg/actuati 00:00: every 6 [place] [facility] on inhaler 00 (six) Medical hours as Branch needed for Wheezing or Shortness of Breath. albuterol 2018-07 Yes [id number] 2{puff} Inhale 2 [facility] 90 1-21 Puffs ity of mcg/actuati 00:00: every 6 [place] [facility] on inhaler 00 (six) Medical hours as Branch needed for Wheezing or Shortness of Breath. albuterol 2018-07 Yes [id number] 2{puff} Inhale 2 [facility] 90 1-21 Puffs ity of mcg/actuati 00:00: every 6 [place] [facility] on inhaler 00 (six) Medical hours as Branch needed for Wheezing or Shortness of Breath. albuterol 2018-07 Yes [id number] 2{puff} Inhale 2 [facility] 90 1-21 Puffs ity of mcg/actuati 00:00: every 6 [place] as on inhaler 00 (six) Medical hours as Branch needed for Wheezing or Shortness of Breath. albuterol 2018-07 Yes [id number] 2{puff} Inhale 2 [facility] 90 1-21 Puffs ity of mcg/actuati 00:00: every 6 [place] as on inhaler 00 (six) Medical hours as Branch needed for Wheezing or Shortness of Breath. albuterol 2018-07 Yes [id number] 2{puff} Inhale 2 [facility] 90 1-21 Puffs ity of mcg/actuati 00:00: every 6 [place] as on inhaler 00 (six) Medical hours as Branch needed for Wheezing or Shortness of Breath. albuterol 2018-07 Yes [id number] 2{puff} Inhale 2 [facility] 90 1-21 Puffs ity of mcg/actuati 00:00: every 6 [place] as on inhaler 00 (six) Medical hours as Branch needed for Wheezing or Shortness of Breath. albuterol 2018-07 Yes [id number] 2{puff} Inhale 2 [facility] 90 1-21 Puffs ity of mcg/actuati 00:00: every 6 [place] as on inhaler 00 (six) Medical hours as Branch needed for Wheezing or Shortness of Breath. albuterol 2018-07 Yes [id number] 2{puff} Inhale 2 [facility] 90 1-21 Puffs ity of mcg/actuati 00:00: every 6 [place] as on inhaler 00 (six) Medical hours as Branch needed for Wheezing or Shortness of Breath. albuterol 2018-07 Yes [id number] 2{puff} Inhale 2 [facility] 90 1-21 Puffs ity of mcg/actuati 00:00: every 6 [place] as on inhaler 00 (six) Medical hours as Branch needed for Wheezing or Shortness of Breath. albuterol 2018-07 Yes [id number] 2{puff} Inhale 2 [facility] 90 1-21 Puffs ity of mcg/actuati 00:00: every 6 [place] as on inhaler 00 (six) Medical hours as Branch needed for Wheezing or Shortness of Breath. albuterol 2018-07 Yes [id number] 2{puff} Inhale 2 [facility] 90 1-21 Puffs ity of mcg/actuati 00:00: every 6 [place] as on inhaler 00 (six) Medical hours as Branch needed for Wheezing or Shortness of Breath. albuterol 2018-07 Yes [id number] 2{puff} Inhale 2 [facility] 90 1-21 Puffs ity of mcg/actuati 00:00: every 6 [place] as on inhaler 00 (six) Medical hours as Branch needed for Wheezing or Shortness of Breath. Diclofenac 2018-07 Yes [id number] Apply [facility] Sodium 0-21 9104 2mg-4mg to ity of (VOLTAREN) 00:00: affected [place] [facility] 1 % gel 00 area 4 Medical times Branch daily Diclofenac 2018-07 Yes [id number] Apply [facility] Sodium 0-21 9104 2mg-4mg to ity of (VOLTAREN) 00:00: affected [place] [facility] 1 % gel 00 area 4 Medical times Branch daily Diclofenac 2018-07 Yes [id number] Apply [facility] Sodium 0-21 9104 2mg-4mg to ity of (VOLTAREN) 00:00: affected [place] as 1 % gel 00 area 4 Medical times Branch daily Diclofenac 2018-07 Yes [id number] Apply [facility] Sodium 0-21 9104 2mg-4mg to ity of (VOLTAREN) 00:00: affected [place] [facility] 1 % gel 00 area 4 Medical times Branch daily Diclofenac 2018-07 Yes [id number] Apply [facility] Sodium 0-21 9104 2mg-4mg to ity of (VOLTAREN) 00:00: affected [place] as 1 % gel 00 area 4 Medical times Branch daily Diclofenac 2018-07 Yes [id number] Apply [facility] Sodium 0-21 9104 2mg-4mg to ity of (VOLTAREN) 00:00: affected [place] [facility] 1 % gel 00 area 4 Medical times Branch daily Diclofenac 2018-07 Yes [id number] Apply [facility] Sodium 0-21 9104 2mg-4mg to ity of (VOLTAREN) 00:00: affected [place] [facility] 1 % gel 00 area 4 Medical times Branch daily Diclofenac 2018-07 Yes [id number] Apply [facility] Sodium 0-21 9104 2mg-4mg to ity of (VOLTAREN) 00:00: affected [place] as 1 % gel 00 area 4 Medical times Branch daily Diclofenac 2018-07 Yes [id number] Apply [facility] Sodium 0-21 9104 2mg-4mg to ity of (VOLTAREN) 00:00: affected [place] [facility] 1 % gel 00 area 4 Medical times Branch daily Diclofenac 2018-07 Yes [id number] Apply [facility] Sodium 0-21 9104 2mg-4mg to ity of (VOLTAREN) 00:00: affected [place] [facility] 1 % gel 00 area 4 Medical times Branch daily Diclofenac 2018-07 Yes [id number] Apply [facility] Sodium 0-21 9104 2mg-4mg to ity of (VOLTAREN) 00:00: affected [place] as 1 % gel 00 area 4 Medical times Branch daily Diclofenac 2018-07 Yes [id number] Apply [facility] Sodium 0-21 9104 2mg-4mg to ity of (VOLTAREN) 00:00: affected [place] as 1 % gel 00 area 4 Medical times Branch daily Diclofenac 2018-07 Yes [id number] Apply [facility] Sodium 0-21 9104 2mg-4mg to ity of (VOLTAREN) 00:00: affected [place] as 1 % gel 00 area 4 Medical times Branch daily Diclofenac 2018-07 Yes [id number] Apply [facility] Sodium 0-21 9104 2mg-4mg to ity of (VOLTAREN) 00:00: affected [place] as 1 % gel 00 area 4 Medical times Branch daily Diclofenac 2018-07 Yes [id number] Apply [facility] Sodium 0-21 9104 2mg-4mg to ity of (VOLTAREN) 00:00: affected [place] as 1 % gel 00 area 4 Medical times Branch daily Diclofenac 2018-07 Yes [id number] Apply [facility] Sodium 0-21 9104 2mg-4mg to ity of (VOLTAREN) 00:00: affected [place] as 1 % gel 00 area 4 Medical times Branch daily Diclofenac 2018-07 Yes [id number] Apply [facility] Sodium 0-21 9104 2mg-4mg to ity of (VOLTAREN) 00:00: affected [place] as 1 % gel 00 area 4 Medical times Branch daily Diclofenac 2018-07 Yes [id number] Apply [facility] Sodium 0-21 9104 2mg-4mg to ity of (VOLTAREN) 00:00: affected [place] 1 % gel 00 area 4 Medical times Branch daily Diclofenac 2018-07 Yes [id number] Apply [facility] Sodium 0-21 9104 2mg-4mg to ity of (VOLTAREN) 00:00: affected [place] 1 % gel 00 area 4 Medical times Branch daily Diclofenac 2018-07 Yes [id number] Apply [facility] Sodium 0-21 4105 2mg-4mg to ity of (VOLTAREN) 00:00: affected [place] 1 % gel 00 area 4 Medical times Branch daily Diclofenac 2018-07 Yes [id number] Apply [facility] Sodium 0-21 4105 2mg-4mg to ity of (VOLTAREN) 00:00: affected [place] 1 % gel 00 area 4 Medical times Branch daily Diclofenac 2018-07 Yes [id number] Apply [facility] Sodium 0-21 4105 2mg-4mg to ity of (VOLTAREN) 00:00: affected [place] 1 % gel 00 area 4 Medical times Branch daily Diclofenac 2018-07 Yes [id number] Apply [facility] Sodium 0-21 4105 2mg-4mg to ity of (VOLTAREN) 00:00: affected [place] 1 % gel 00 area 4 Medical times Branch daily Diclofenac 2018-07 Yes [id number] Apply [facility] Sodium 0-21 4105 2mg-4mg to ity of (VOLTAREN) 00:00: affected [place] 1 % gel 00 area 4 Medical times Branch daily Diclofenac 2018-07 Yes [id number] Apply [facility] Sodium 0-21 4105 2mg-4mg to ity of (VOLTAREN) 00:00: affected [place] 1 % gel 00 area 4 Medical times Branch daily Diclofenac 2018-07 Yes [id number] Apply [facility] Sodium 0-21 4105 2mg-4mg to ity of (VOLTAREN) 00:00: affected [place] 1 % gel 00 area 4 Medical times Branch daily Diclofenac 2018-07 Yes [id number] Apply [facility] Sodium 0-21 4105 2mg-4mg to ity of (VOLTAREN) 00:00: affected [place] 1 % gel 00 area 4 Medical times Branch daily Diclofenac 2018-07 Yes [id number] Apply [facility] Sodium 0-21 4105 2mg-4mg to ity of (VOLTAREN) 00:00: affected [place] 1 % gel 00 area 4 Medical times Branch daily Diclofenac 2018-07 Yes [id number] Apply [facility] Sodium 0-21 4105 2mg-4mg to ity of (VOLTAREN) 00:00: affected [place] 1 % gel 00 area 4 Medical times Branch daily Diclofenac 2018-07 Yes [id number] Apply [facility] Sodium 0-21 4105 2mg-4mg to ity of (VOLTAREN) 00:00: affected [place] 1 % gel 00 area 4 Medical times [facility] daily Diclofenac 2018-07 Yes [id number] Apply [facility] Sodium 0-21 4105 2mg-4mg to ity of (VOLTAREN) 00:00: affected [place] 1 % gel 00 area 4 Medical times [facility] daily Diclofenac 2018-07 Yes [id number] Apply [facility] Sodium 0-21 4105 2mg-4mg to ity of (VOLTAREN) 00:00: affected [place] 1 % gel 00 area 4 Medical times Branch daily Diclofenac 2018-07 Yes [id number] Apply [facility] Sodium 0-21 4105 2mg-4mg to ity of (VOLTAREN) 00:00: affected [place] 1 % gel 00 area 4 Medical times [facility] daily Diclofenac 2018-07 Yes [id number] Apply [facility] Sodium 0-21 4105 2mg-4mg to ity of (VOLTAREN) 00:00: affected [place] 1 % gel 00 area 4 Medical times Branch daily Diclofenac 2018-07 Yes [id number] Apply [facility] Sodium 0-21 4105 2mg-4mg to ity of (VOLTAREN) 00:00: affected [place] 1 % gel 00 area 4 Medical times [facility] daily Diclofenac 2018-07 Yes [id number] Apply [facility] Sodium 0-21 4105 2mg-4mg to ity of (VOLTAREN) 00:00: affected [place] 1 % gel 00 area 4 Medical times [facility] daily Diclofenac 2019- Yes [id number] Apply [facility] Sodium 0-21 4105 2mg-4mg to ity of (VOLTAREN) 00:00: affected [place] 1 % gel 00 area 4 Medical times [facility] daily Diclofenac 2018-07 Yes [id number] Apply [facility] Sodium 0-21 4105 2mg-4mg to ity of (VOLTAREN) 00:00: affected [place] 1 % gel 00 area 4 Medical times [facility] daily Diclofenac 2018-07 Yes [id number] Apply [facility] Sodium 0-21 4105 2mg-4mg to ity of (VOLTAREN) 00:00: affected [place] 1 % gel 00 area 4 Medical times [facility] daily Diclofenac 2018-07 Yes [id number] Apply [facility] Sodium 0-21 4105 2mg-4mg to ity of (VOLTAREN) 00:00: affected [place] 1 % gel 00 area 4 Medical times [facility] daily Diclofenac 2018-07 Yes [id number] Apply [facility] Sodium 0-21 4105 2mg-4mg to ity of (VOLTAREN) 00:00: affected [place] 1 % gel 00 area 4 Medical times [facility] daily Diclofenac 2018-07 Yes [id number] Apply [facility] Sodium 0-21 4105 2mg-4mg to ity of (VOLTAREN) 00:00: affected [place] 1 % gel 00 area 4 Medical times Branch daily Diclofenac 2018-07- No [id number] Apply [facility] Sodium 0-21 12-01 4105 2mg-4mg to ity of (VOLTAREN) 00:00: 00:00 affected [place] 1 % gel 00 :00 area 4 Medical times Branch daily MONTELUKAST 2019-0 Yes [id number] TAKE 1 [facility] 10 mg 8-02 TABLET BY ity of tablet 00:00: MOUTH [place] 00 EVERY DAY Medical Branch MONTELUKAST 2019-0 Yes [id number] TAKE 1 [facility] 10 mg 8-02 TABLET BY ity of tablet 00:00: MOUTH [place] 00 EVERY DAY Medical Branch MONTELUKAST 2019-0 Yes [id number] TAKE 1 [facility] 10 mg 8-02 TABLET BY ity of tablet 00:00: MOUTH [place] 00 EVERY DAY Medical Branch MONTELUKAST 2019-0 Yes [id number] TAKE 1 [facility] 10 mg 8-02 TABLET BY ity of tablet 00:00: MOUTH [place] 00 EVERY DAY Medical Branch MONTELUKAST 2019-0 Yes [id number] TAKE 1 [facility] 10 mg 8-02 TABLET BY ity of tablet 00:00: MOUTH [place] 00 EVERY DAY Medical Branch MONTELUKAST 2019-0 Yes [id number] TAKE 1 [facility] 10 mg 8-02 TABLET BY ity of tablet 00:00: MOUTH [place] 00 EVERY DAY Medical Branch MONTELUKAST 2019-0 Yes [id number] TAKE 1 [facility] 10 mg 8-02 TABLET BY ity of tablet 00:00: MOUTH [place] 00 EVERY DAY [facility] [place] MONTELUKAST 2019-0 Yes [id number] TAKE 1 [facility] 10 mg 8-02 TABLET BY ity of tablet 00:00: MOUTH [place] 00 EVERY DAY Medical Branch MONTELUKAST 2019-0 Yes [id number] TAKE 1 [facility] 10 mg 8-02 TABLET BY ity of tablet 00:00: MOUTH [place] 00 EVERY DAY Medical Branch MONTELUKAST 2019-0 Yes [id number] TAKE 1 [facility] 10 mg 8-02 TABLET BY ity of tablet 00:00: MOUTH [place] 00 EVERY DAY Medical Branch MONTELUKAST 2019-0 Yes [id number] TAKE 1 [facility] 10 mg 8-02 TABLET BY ity of tablet 00:00: MOUTH [place] 00 EVERY DAY Medical Branch MONTELUKAST 2019-0 Yes [id number] TAKE 1 [facility] 10 mg 8-02 TABLET BY ity of tablet 00:00: MOUTH [place] 00 EVERY DAY Medical Branch MONTELUKAST 2019-0 Yes [id number] TAKE 1 [facility] 10 mg 8-02 TABLET BY ity of tablet 00:00: MOUTH [place] 00 EVERY DAY Medical Branch MONTELUKAST 2019-0 Yes [id number] TAKE 1 [facility] 10 mg 8-02 TABLET BY ity of tablet 00:00: MOUTH [place] 00 EVERY DAY Medical Branch MONTELUKAST 2019-0 Yes [id number] TAKE 1 [facility] 10 mg 8-02 TABLET BY ity of tablet 00:00: MOUTH [place] 00 EVERY DAY Medical Branch MONTELUKAST 2019-0 Yes [id number] TAKE 1 [facility] 10 mg 8-02 TABLET BY ity of tablet 00:00: MOUTH [place] 00 EVERY DAY Medical Branch MONTELUKAST 2019-0 Yes [id number] TAKE 1 [facility] 10 mg 8-02 TABLET BY ity of tablet 00:00: MOUTH [place] 00 EVERY DAY Medical Branch MONTELUKAST 2019-0 Yes [id number] TAKE 1 [facility] 10 mg 8-02 TABLET BY ity of tablet 00:00: MOUTH [place] 00 EVERY DAY Medical Branch MONTELUKAST 2019-0 Yes [id number] TAKE 1 [facility] 10 mg 8-02 TABLET BY ity of tablet 00:00: MOUTH [place] 00 EVERY DAY Medical Branch MONTELUKAST 2019-0 Yes [id number] TAKE 1 [facility] 10 mg 8-02 TABLET BY ity of tablet 00:00: MOUTH [place] 00 EVERY DAY Medical [facility] MONTELUKAST 2019-0 Yes [id number] TAKE 1 [facility] 10 mg 8-02 TABLET BY ity of tablet 00:00: MOUTH [place] 00 EVERY DAY Medical Branch MONTELUKAST 2019-0 Yes [id number] TAKE 1 [facility] 10 mg 8-02 TABLET BY ity of tablet 00:00: MOUTH [place] 00 EVERY DAY Medical Branch MONTELUKAST 2019-0 Yes [id number] TAKE 1 [facility] 10 mg 8-02 TABLET BY ity of tablet 00:00: MOUTH [place] 00 EVERY DAY Medical Branch MONTELUKAST 2019-0 Yes [id number] TAKE 1 [facility] 10 mg 8-02 TABLET BY ity of tablet 00:00: MOUTH [place] 00 EVERY DAY Medical Branch MONTELUKAST 2019-0 Yes [id number] TAKE 1 [facility] 10 mg 8-02 TABLET BY ity of tablet 00:00: MOUTH [place] 00 EVERY DAY Medical Branch MONTELUKAST 2019-0 Yes [id number] TAKE 1 [facility] 10 mg 8-02 TABLET BY ity of tablet 00:00: MOUTH [place] 00 EVERY DAY Medical Branch MONTELUKAST 2019-0 Yes [id number] TAKE 1 [facility] 10 mg 8-02 TABLET BY ity of tablet 00:00: MOUTH [place] 00 EVERY DAY Medical Branch MONTELUKAST 2019-0 Yes [id number] TAKE 1 [facility] 10 mg 8-02 TABLET BY ity of tablet 00:00: MOUTH [place] 00 EVERY DAY Medical Branch MONTELUKAST 2019-0 Yes [id number] TAKE 1 [facility] 10 mg 8-02 TABLET BY ity of tablet 00:00: MOUTH [place] 00 EVERY DAY Medical Branch MONTELUKAST 2019-0 Yes [id number] TAKE 1 [facility] 10 mg 8-02 TABLET BY ity of tablet 00:00: MOUTH [place] 00 EVERY DAY Medical Branch MONTELUKAST 2019-0 Yes [id number] TAKE 1 [facility] 10 mg 8-02 TABLET BY ity of tablet 00:00: MOUTH [place] 00 EVERY DAY Medical Branch MONTELUKAST 2019-0 Yes [id number] TAKE 1 [facility] 10 mg 8-02 TABLET BY ity of tablet 00:00: MOUTH [place] 00 EVERY DAY Medical Branch MONTELUKAST 2019-0 Yes [id number] TAKE 1 [facility] 10 mg 8-02 TABLET BY ity of tablet 00:00: MOUTH [place] 00 EVERY DAY Medical Branch MONTELUKAST 2019-0 Yes [id number] TAKE 1 [facility] 10 mg 8-02 TABLET BY ity of tablet 00:00: MOUTH [place] 00 EVERY DAY Medical Branch MONTELUKAST 2019-0 Yes [id number] TAKE 1 [facility] 10 mg 8-02 TABLET BY ity of tablet 00:00: MOUTH [place] 00 EVERY DAY Medical Branch MONTELUKAST 2019-0 Yes [id number] TAKE 1 [facility] 10 mg 8-02 TABLET BY ity of tablet 00:00: MOUTH [place] 00 EVERY DAY Medical Branch MONTELUKAST 2019-0 Yes [id number] TAKE 1 [facility] 10 mg 8-02 TABLET BY ity of tablet 00:00: MOUTH [place] 00 EVERY DAY Medical Branch MONTELUKAST 2019-0 Yes [id number] TAKE 1 [facility] 10 mg 8-02 TABLET BY ity of tablet 00:00: MOUTH [place] 00 EVERY DAY Medical Branch MONTELUKAST 2019-0 Yes [id number] TAKE 1 [facility] 10 mg 8-02 TABLET BY ity of tablet 00:00: MOUTH [place] 00 EVERY DAY Medical Branch MONTELUKAST 2019-0 Yes [id number] TAKE 1 [facility] 10 mg 8-02 TABLET BY ity of tablet 00:00: MOUTH [place] 00 EVERY DAY Medical Branch MONTELUKAST 2019-0 Yes [id number] TAKE 1 [facility] 10 mg 8-02 TABLET BY ity of tablet 00:00: MOUTH [place] 00 EVERY DAY Medical Branch MONTELUKAST 2019-0 Yes [id number] TAKE 1 [facility] 10 mg 8-02 TABLET BY ity of tablet 00:00: MOUTH [place] 00 EVERY DAY Medical Branch MONTELUKAST 2019-0 Yes [id number] TAKE 1 [facility] 10 mg 8-02 TABLET BY ity of tablet 00:00: MOUTH [place] 00 EVERY DAY Medical Branch MONTELUKAST 2019-0 Yes [id number] TAKE 1 [facility] 10 mg 8-02 TABLET BY ity of tablet 00:00: MOUTH [place] 00 EVERY DAY Medical Branch MONTELUKAST 2019-0 Yes [id number] TAKE 1 [facility] 10 mg 8-02 TABLET BY ity of tablet 00:00: MOUTH [place] 00 EVERY DAY Medical Branch MONTELUKAST 2019-0 Yes [id number] TAKE 1 [facility] 10 mg 8-02 TABLET BY ity of tablet 00:00: MOUTH [place] 00 EVERY DAY Medical Branch MONTELUKAST 2019-0 Yes [id number] TAKE 1 [facility] 10 mg 8-02 TABLET BY ity of tablet 00:00: MOUTH [place] 00 EVERY DAY Medical Branch MONTELUKAST 2019-0 Yes [id number] TAKE 1 [facility] 10 mg 8-02 TABLET BY ity of tablet 00:00: MOUTH [place] 00 EVERY DAY Medical Branch MONTELUKAST 2019-0 Yes [id number] TAKE 1 [facility] 10 mg 8-02 TABLET BY ity of tablet 00:00: MOUTH [place] 00 EVERY DAY [facility] 0 Yes [id number] TAKE 1 [facility] 10 mg 8-02 TABLET BY ity of tablet 00:00: MOUTH [place] 00 EVERY DAY [facility] 0 Yes [id number] TAKE 1 [facility] 10 mg 8-02 TABLET BY ity of tablet 00:00: MOUTH [place] 00 EVERY DAY [facility] 0 Yes [id number] TAKE 1 [facility] 10 mg 8-02 TABLET BY ity of tablet 00:00: MOUTH [place] 00 EVERY DAY [facility] 0 Yes [id number] TAKE 1 [facility] 10 mg 8-02 TABLET BY ity of tablet 00:00: MOUTH [place] 00 EVERY DAY [facility] 0 Yes [id number] TAKE 1 [facility] 10 mg 8-02 TABLET BY ity of tablet 00:00: MOUTH [place] 00 EVERY DAY [facility] 0 Yes [id number] TAKE 1 [facility] 10 mg 8-02 TABLET BY ity of tablet 00:00: MOUTH [place] 00 EVERY DAY [facility] Nebulizers Yes Dispense [facility] vers (VIXONE 7-12 the ity of NEBULIZER-A 00:00: Nebulizer [place] DULT MASK) 00 Mask Medical Misc covered by Branch Ins. He will pay out of pocket if mask not approved by Insurance. He does not need the machine. Nebulizers Yes Dispense [facility] vers (VIXONE 7-12 the ity of NEBULIZER-A 00:00: Nebulizer [place] DULT MASK) 00 Mask Medical Misc covered by Branch Ins. He will pay out of pocket if mask not approved by Insurance. He does not need the machine. Nebulizers Yes Dispense [facility] vers (VIXONE 7-12 the ity of NEBULIZER-A 00:00: Nebulizer [place] DULT MASK) 00 Mask Medical Misc covered by Branch Ins. He will pay out of pocket if mask not approved by Insurance. He does not need the machine. Nebulizers Yes Dispense [facility] vers (VIXONE 7-12 the ity of NEBULIZER-A 00:00: Nebulizer [place] DULT MASK) 00 Mask Medical Misc covered by Branch Ins. He will pay out of pocket if mask not approved by Insurance. He does not need the machine. Nebulizers Yes Dispense [facility] vers (VIXONE 7 the ity of NEBULIZER-A 00:00: Nebulizer [place] DULT MASK) 00 Mask Medical Misc covered by Branch Ins. He will pay out of pocket if mask not approved by Insurance. He does not need the machine. Nebulizers Yes Dispense [facility] vers (VIXONE 7 the ity of NEBULIZER-A 00:00: Nebulizer [place] DULT MASK) 00 Mask Medical Misc covered by Branch Ins. He will pay out of pocket if mask not approved by Insurance. He does not need the machine. Nebulizers Yes Dispense [facility] vers (VIXONE 02-08 the ity of NEBULIZER-A 00:00: Nebulizer [place] DULT MASK) 00 Mask Medical Misc covered by Branch Ins. He will pay out of pocket if mask not approved by Insurance. He does not need the machine. Nebulizers Yes Dispense [facility] vers (VIXONE 02-08 the ity of NEBULIZER-A 00:00: Nebulizer [place] DULT MASK) 00 Mask Medical Misc covered by Branch Ins. He will pay out of pocket if mask not approved by Insurance. He does not need the machine. Nebulizers Yes Dispense [facility] vers (VIXONE 02-08 the ity of NEBULIZER-A 00:00: Nebulizer [place] DULT MASK) 00 Mask Medical Misc covered by Branch Ins. He will pay out of pocket if mask not approved by Insurance. He does not need the machine. Nebulizers Yes Dispense [facility] vers (VIXONE 02-08 the ity of NEBULIZER-A 00:00: Nebulizer [place] DULT MASK) 00 Mask Medical Misc covered by Branch Ins. He will pay out of pocket if mask not approved by Insurance. He does not need the machine. Nebulizers Yes Dispense [facility] vers (VIXONE 7 the ity of NEBULIZER-A 00:00: Nebulizer [place] DULT MASK) 00 Mask Medical Misc covered by Branch Ins. He will pay out of pocket if mask not approved by Insurance. He does not need the machine. Nebulizers Yes Dispense [facility] vers (VIXONE 7 the ity of NEBULIZER-A 00:00: Nebulizer [place] DULT MASK) 00 Mask Medical Misc covered by Branch Ins. He will pay out of pocket if mask not approved by Insurance. He does not need the machine. Nebulizers Yes Dispense [facility] vers (VIXONE 7 the ity of NEBULIZER-A 00:00: Nebulizer [place] DULT MASK) 00 Mask Medical Misc covered by Branch Ins. He will pay out of pocket if mask not approved by Insurance. He does not need the machine. Nebulizers Yes Dispense [facility] vers (VIXONE 7 the ity of NEBULIZER-A 00:00: Nebulizer [place] DULT MASK) 00 Mask Medical Misc covered by Branch Ins. He will pay out of pocket if mask not approved by Insurance. He does not need the machine. Nebulizers Yes Dispense [facility] vers (VIXONE 7 the ity of NEBULIZER-A 00:00: Nebulizer [place] DULT MASK) 00 Mask Medical Misc covered by Branch Ins. He will pay out of pocket if mask not approved by Insurance. He does not need the machine. Nebulizers Yes Dispense [facility] vers (VIXONE 7 the ity of NEBULIZER-A 00:00: Nebulizer [place] DULT MASK) 00 Mask Medical Misc covered by Branch Ins. He will pay out of pocket if mask not approved by Insurance. He does not need the machine. Nebulizers Yes Dispense [facility] vers (VIXONE 7 the ity of NEBULIZER-A 00:00: Nebulizer [place] DULT MASK) 00 Mask Medical Misc covered by Branch Ins. He will pay out of pocket if mask not approved by Insurance. He does not need the machine. Nebulizers Yes Dispense [facility] vers (VIXONE 7 the ity of NEBULIZER-A 00:00: Nebulizer [place] DULT MASK) 00 Mask Medical Misc covered by Branch Ins. He will pay out of pocket if mask not approved by Insurance. He does not need the machine. Nebulizers Yes Dispense [facility] vers (VIXONE 7 the ity of NEBULIZER-A 00:00: Nebulizer [place] DULT MASK) 00 Mask Medical Misc covered by Branch Ins. He will pay out of pocket if mask not approved by Insurance. He does not need the machine. Nebulizers Yes Dispense [facility] vers (VIXONE 7 the ity of NEBULIZER-A 00:00: Nebulizer [place] DULT MASK) 00 Mask Medical Misc covered by Branch Ins. He will pay out of pocket if mask not approved by Insurance. He does not need the machine. Nebulizers Yes Dispense [facility] vers (VIXONE 7 the ity of NEBULIZER-A 00:00: Nebulizer [place] DULT MASK) 00 Mask Medical Misc covered by Branch Ins. He will pay out of pocket if mask not approved by Insurance. He does not need the machine. Nebulizers Yes Dispense [facility] vers (VIXONE 7 the ity of NEBULIZER-A 00:00: Nebulizer [place] DULT MASK) 00 Mask Medical Misc covered by Branch Ins. He will pay out of pocket if mask not approved by Insurance. He does not need the machine. Nebulizers Yes Dispense [facility] vers (VIXONE 7 the ity of NEBULIZER-A 00:00: Nebulizer [place] DULT MASK) 00 Mask Medical Misc covered by Branch Ins. He will pay out of pocket if mask not approved by Insurance. He does not need the machine. Nebulizers Yes Dispense [facility] vers (VIXONE 7 the ity of NEBULIZER-A 00:00: Nebulizer [place] DULT MASK) 00 Mask Medical Misc covered by Branch Ins. He will pay out of pocket if mask not approved by Insurance. He does not need the machine. Nebulizers Yes Dispense [facility] vers (VIXONE 712 the ity of NEBULIZER-A 00:00: Nebulizer [place] DULT MASK) 00 Mask Medical Misc covered by Branch Ins. He will pay out of pocket if mask not approved by Insurance. He does not need the machine. Nebulizers Yes Dispense [facility] vers (VIXONE 712 the ity of NEBULIZER-A 00:00: Nebulizer [place] DULT MASK) 00 Mask Medical Misc covered by Branch Ins. He will pay out of pocket if mask not approved by Insurance. He does not need the machine. Nebulizers Yes Dispense [facility] vers (VIXONE 7 the ity of NEBULIZER-A 00:00: Nebulizer [place] DULT MASK) 00 Mask Medical Misc covered by Branch Ins. He will pay out of pocket if mask not approved by Insurance. He does not need the machine. Nebulizers Yes Dispense [facility] vers (VIXONE 7 the ity of NEBULIZER-A 00:00: Nebulizer [place] DULT MASK) 00 Mask Medical Misc covered by Branch Ins. He will pay out of pocket if mask not approved by Insurance. He does not need the machine. Nebulizers Yes Dispense [facility] vers (VIXONE 7 the ity of NEBULIZER-A 00:00: Nebulizer [place] DULT MASK) 00 Mask Medical Misc covered by Branch Ins. He will pay out of pocket if mask not approved by Insurance. He does not need the machine. Nebulizers Yes Dispense [facility] vers (VIXONE 02-08 the ity of NEBULIZER-A 00:00: Nebulizer [place] DULT MASK) 00 Mask Medical Misc covered by Branch Ins. He will pay out of pocket if mask not approved by Insurance. He does not need the machine. Nebulizers Yes Dispense [facility] vers (VIXONE 02-08 the ity of NEBULIZER-A 00:00: Nebulizer [place] DULT MASK) 00 Mask Medical Misc covered by Branch Ins. He will pay out of pocket if mask not approved by Insurance. He does not need the machine. Nebulizers Yes Dispense [facility] vers (VIXONE 7 the ity of NEBULIZER-A 00:00: Nebulizer [place] DULT MASK) 00 Mask Medical Misc covered by Branch Ins. He will pay out of pocket if mask not approved by Insurance. He does not need the machine. Nebulizers Yes Dispense [facility] vers (VIXONE 7 the ity of NEBULIZER-A 00:00: Nebulizer [place] DULT MASK) 00 Mask Medical Misc covered by Branch Ins. He will pay out of pocket if mask not approved by Insurance. He does not need the machine. Nebulizers Yes Dispense [facility] vers (VIXONE 7 the ity of NEBULIZER-A 00:00: Nebulizer [place] DULT MASK) 00 Mask Medical Misc covered by Branch Ins. He will pay out of pocket if mask not approved by Insurance. He does not need the machine. Nebulizers Yes Dispense [facility] vers (VIXONE 7 the ity of NEBULIZER-A 00:00: Nebulizer [place] DULT MASK) 00 Mask Medical Misc covered by Branch Ins. He will pay out of pocket if mask not approved by Insurance. He does not need the machine. Nebulizers Yes Dispense [facility] vers (VIXONE 7 the ity of NEBULIZER-A 00:00: Nebulizer [place] DULT MASK) 00 Mask Medical Misc covered by Branch Ins. He will pay out of pocket if mask not approved by Insurance. He does not need the machine. Nebulizers Yes Dispense [facility] vers (VIXONE 02-08 the ity of NEBULIZER-A 00:00: Nebulizer [place] DULT MASK) 00 Mask Medical Misc covered by Branch Ins. He will pay out of pocket if mask not approved by Insurance. He does not need the machine. Nebulizers Yes Dispense [facility] vers (VIXONE 7 the ity of NEBULIZER-A 00:00: Nebulizer [place] DULT MASK) 00 Mask Medical Misc covered by Branch Ins. He will pay out of pocket if mask not approved by Insurance. He does not need the machine. Nebulizers Yes Dispense [facility] vers (VIXONE 7 the ity of NEBULIZER-A 00:00: Nebulizer [place] DULT MASK) 00 Mask Medical Misc covered by Branch Ins. He will pay out of pocket if mask not approved by Insurance. He does not need the machine. Nebulizers Yes Dispense [facility] vers (VIXONE 7 the ity of NEBULIZER-A 00:00: Nebulizer [place] DULT MASK) 00 Mask Medical Misc covered by Branch Ins. He will pay out of pocket if mask not approved by Insurance. He does not need the machine. Nebulizers Yes Dispense [facility] vers (VIXONE 7 the ity of NEBULIZER-A 00:00: Nebulizer [place] DULT MASK) 00 Mask Medical Misc covered by Branch Ins. He will pay out of pocket if mask not approved by Insurance. He does not need the machine. Nebulizers Yes Dispense [facility] vers (VIXONE 7 the ity of NEBULIZER-A 00:00: Nebulizer [place] DULT MASK) 00 Mask Medical Misc covered by Branch Ins. He will pay out of pocket if mask not approved by Insurance. He does not need the machine. Nebulizers Yes Dispense [facility] vers (VIXONE 7 the ity of NEBULIZER-A 00:00: Nebulizer [place] DULT MASK) 00 Mask Medical Misc covered by Branch Ins. He will pay out of pocket if mask not approved by Insurance. He does not need the machine. Nebulizers Yes Dispense [facility] vers (VIXONE 02-08 the ity of NEBULIZER-A 00:00: Nebulizer [place] DULT MASK) 00 Mask Medical Misc covered by Branch Ins. He will pay out of pocket if mask not approved by Insurance. He does not need the machine. Nebulizers Yes Dispense [facility] vers (VIXONE 02-08 the ity of NEBULIZER-A 00:00: Nebulizer [place] DULT MASK) 00 Mask Medical Misc covered by Branch Ins. He will pay out of pocket if mask not approved by Insurance. He does not need the machine. Nebulizers Yes Dispense [facility] vers (VIXONE 7 the ity of NEBULIZER-A 00:00: Nebulizer [place] DULT MASK) 00 Mask Medical Misc covered by Branch Ins. He will pay out of pocket if mask not approved by Insurance. He does not need the machine. Nebulizers Yes Dispense [facility] vers (VIXONE 7 the ity of NEBULIZER-A 00:00: Nebulizer [place] DULT MASK) 00 Mask Medical Misc covered by Branch Ins. He will pay out of pocket if mask not approved by Insurance. He does not need the machine. Nebulizers Yes Dispense [facility] vers (VIXONE 7 the ity of NEBULIZER-A 00:00: Nebulizer [place] DULT MASK) 00 Mask Medical Misc covered by Branch Ins. He will pay out of pocket if mask not approved by Insurance. He does not need the machine. Nebulizers Yes Dispense [facility] vers (VIXONE 02-08 the ity of NEBULIZER-A 00:00: Nebulizer [place] DULT MASK) 00 Mask Medical Misc covered by Branch Ins. He will pay out of pocket if mask not approved by Insurance. He does not need the machine. Nebulizers Yes Dispense [facility] vers (VIXONE 02-08 the ity of NEBULIZER-A 00:00: Nebulizer [place] DULT MASK) 00 Mask Medical Misc covered by Branch Ins. He will pay out of pocket if mask not approved by Insurance. He does not need the machine. Nebulizers Yes Dispense Uni vers (VIXONE 02-08 the ity of NEBULIZER-A 00:00: Nebulizer [place] DULT MASK) 00 Mask Medical Misc covered by Branch Ins. He will pay out of pocket if mask not approved by Insurance. He does not need the machine. Nebulizers Yes Dispense [facility] vers (VIXONE 02-08 the ity of NEBULIZER-A 00:00: Nebulizer [place] DULT MASK) 00 Mask Medical Misc covered by Branch Ins. He will pay out of pocket if mask not approved by Insurance. He does not need the machine. Nebulizers Yes Dispense [facility] vers (VIXONE 02-08 the ity of NEBULIZER-A 00:00: Nebulizer [place] DULT MASK) 00 Mask Medical Misc covered by Branch Ins. He will pay out of pocket if mask not approved by Insurance. He does not need the machine. Nebulizers Yes Dispense Uni vers (VIXONE 02-08 the ity of NEBULIZER-A 00:00: Neb[place] DULT MASK) 00 Mask Medical Misc covered by Branch Ins. He will pay out of pocket if mask not approved by Insurance. He does not need the machine. Nebulizers Yes Dispense Uni vers (VIXONE 02-08 the ity of NEBULIZER-A 00:00: [place] DULT MASK) 00 Mask Medical Misc covered by Branch Ins. He will pay out of pocket if mask not approved by Insurance. He does not need the machine. Nebulizer Yes [id number] Use as U nivers Accessories 7-10 directed ity of Kit 00:00: [facility] Nebulizer 2019-0 Yes [id number] Use as U nivers Accessories 7-10 directed ity of Kit 00:00: [facility] Nebulizer 2019-0 Yes [id number] Use as U nivers Accessories 7-10 directed ity of Kit 00:00: [facility] Nebulizer 2019-0 Yes [id number] Use as U nivers Accessories 7-10 directed ity of Kit 00:00: [facility] Nebulizer 2019-0 Yes [id number] Use as U nivers Accessories 7-10 directed ity of Kit 00:00: [facility] Nebulizer 2019-0 Yes [id number] Use as U nivers Accessories 7-10 directed ity of Kit 00:00: [facility] Nebulizer 2019-0 Yes [id number] Use as U nivers Accessories 7-10 directed ity of Kit 00:00: [facility] Nebulizer 2019-0 Yes [id number] Use as U nivers Accessories 7-10 directed ity of Kit 00:00: [facility] Nebulizer 2019-0 Yes [id number] Use as U nivers Accessories 7-10 directed ity of Kit 00:00: [facility] Nebulizer 2019-0 Yes [id number] Use as U nivers Accessories 7-10 directed ity of Kit 00:00: [facility] Nebulizer 2019-0 Yes [id number] Use as U nivers Accessories 7-10 directed ity of Kit 00:00: [facility] Nebulizer 2019-0 Yes [id number] Use as U nivers Accessories 7-10 directed ity of Kit 00:00: [facility] Nebulizer 2019-0 Yes [id number] Use as U nivers Accessories 7-10 directed ity of Kit 00:00: [facility] Nebulizer 2019-0 Yes [id number] Use as U nivers Accessories 7-10 directed ity of Kit 00:00: [facility] Nebulizer 2019-0 Yes [id number] Use as U nivers Accessories 7-10 directed ity of Kit 00:00: [facility] Nebulizer 2019-0 Yes [id number] Use as U nivers Accessories 7-10 directed ity of Kit 00:00: [facility] Nebulizer 2019-0 Yes [id number] Use as U nivers Accessories 7-10 directed ity of Kit 00:00: [facility] Nebulizer 2019-0 Yes [id number] Use as U nivers Accessories 7-10 directed ity of Kit 00:00: [facility] Nebulizer 2019-0 Yes [id number] Use as U nivers Accessories 7-10 directed ity of Kit 00:00: [facility] Nebulizer 2019-0 Yes [id number] Use as U nivers Accessories 7-10 directed ity of Kit 00:00: [facility] Nebulizer 2019-0 Yes [id number] Use as U nivers Accessories 7-10 directed ity of Kit 00:00: [facility] Nebulizer 2019-0 Yes [id number] Use as U nivers Accessories 7-10 directed ity of Kit 00:00: [facility] Nebulizer 2019-0 Yes [id number] Use as U nivers Accessories 7-10 directed ity of Kit 00:00: [facility] Nebulizer 2019-0 Yes [id number] Use as U nivers Accessories 7-10 directed ity of Kit 00:00: [facility] Nebulizer 2019-0 Yes [id number] Use as U nivers Accessories 7-10 directed ity of Kit 00:00: [facility] Nebulizer 2019-0 Yes [id number] Use as U nivers Accessories 7-10 directed ity of Kit 00:00: [facility] Nebulizer 2019-0 Yes [id number] Use as U nivers Accessories 7-10 directed ity of Kit 00:00: [facility] Nebulizer 2019-0 Yes [id number] Use as U nivers Accessories 7-10 directed ity of Kit 00:00: [facility] Nebulizer 2019-0 Yes [id number] Use as U nivers Accessories 7-10 directed ity of Kit 00:00: [facility] Nebulizer 2019-0 Yes [id number] Use as U nivers Accessories 7-10 directed ity of Kit 00:00: [facility] Nebulizer 2019-0 Yes [id number] Use as U nivers Accessories 7-10 directed ity of Kit 00:00: [facility] Nebulizer 2019-0 Yes [id number] Use as U nivers Accessories 7-10 directed ity of Kit 00:00: [facility] Nebulizer 2019-0 Yes [id number] Use as U nivers Accessories 7-10 directed ity of Kit 00:00: [facility] Nebulizer 2019-0 Yes [id number] Use as U nivers Accessories 7-10 directed ity of Kit 00:00: [facility] Nebulizer 2019-0 Yes [id number] Use as U nivers Accessories 7-10 directed ity of Kit 00:00: [facility] Nebulizer 2019-0 Yes [id number] Use as U nivers Accessories 7-10 directed ity of Kit 00:00: [facility] Nebulizer 2019-0 Yes [id number] Use as U nivers Accessories 7-10 directed ity of Kit 00:00: [facility] Nebulizer 2019-0 Yes [id number] Use as U nivers Accessories 7-10 directed ity of Kit 00:00: [facility] Nebulizer 2019-0 Yes [id number] Use as U nivers Accessories 7-10 directed ity of Kit 00:00: [place] [address] [facility] Nebulizer 2019-0 Yes [id number] Use as U nivers Accessories 7-10 directed ity of Kit 00:00: [facility] Nebulizer 2019-0 Yes [id number] Use as U nivers Accessories 7-10 directed ity of Kit 00:00: [facility] Nebulizer 2019-0 Yes [id number] Use as U nivers Accessories 7-10 directed ity of Kit 00:00: [facility] Nebulizer 2019-0 Yes [id number] Use as U nivers Accessories 7-10 directed ity of Kit 00:00: [place] [address] [facility] Nebulizer 2019-0 Yes [id number] Use as U nivers Accessories 7-10 directed ity of Kit 00:00: [facility] Nebulizer 2019-0 Yes [id number] Use as U nivers Accessories 7-10 directed ity of Kit 00:00: [place] [address] [facility] Nebulizer 2019-0 Yes [id number] Use as U nivers Accessories 7-10 directed ity of Kit 00:00: [facility] Nebulizer 2019-0 Yes [id number] Use as U nivers Accessories 7-10 directed ity of Kit 00:00: [facility] Nebulizer 2019-0 Yes [id number] Use as U nivers Accessories 7-10 directed ity of Kit 00:00: [facility] Nebulizer 2019-0 Yes [id number] Use as U nivers Accessories 7-10 directed ity of Kit 00:00: [facility] Nebulizer 2019-0 Yes [id number] Use as U nivers Accessories 7-10 directed ity of Kit 00:00: [facility] Nebulizer 2018-0 Yes [id number] Use as U nivers Accessories 7-10 directed ity of Kit 00:00: [facility] Nebulizer 2019-0 Yes [id number] Use as U nivers Accessories 7-10 directed ity of Kit 00:00: [facility] Nebulizer 2019-0 Yes [id number] Use as U nivers Accessories 7-10 directed ity of Kit 00:00: [facility] Nebulizer 2019-0 Yes [id number] Use as U nivers Accessories 7-10 directed ity of Kit 00:00: [facility] Nebulizer 2019-0 Yes [id number] Use as U nivers Accessories 7-10 directed ity of Kit 00:00: [place] [address] [facility] Branch Immunizations Ordered Filled Immunization Date Status Comments [facility] e Immunization Name Name SARS-COV-2 COVID-19 2022-07-18 Completed Unive rsity of VACCINE 12 YRS+, 00:00:00 [facility] dical BIVALENT 0.5ML, IM, Branc h (MODERNA BOOSTER) SARS-COV-2 COVID-19 2022-07-18 Completed Unive rsity of VACCINE 12 YRS+, 00:00:00 [facility] dical BIVALENT 0.5ML, IM, Branc h (MODERNA BOOSTER) Pneumococcal 20 2022-03-27 Completed Universit y of Conjugate, PCV20 00:00:00 [facility] dical (Prevnar 20) Branch Influenza Virus 2022-03-27 Completed Universit y of Vaccine Quad .5 mL 00:00:00 [facility] IM 6+ MO Branch Pneumococcal 20 2022-03-27 Completed Universit y of Conjugate, PCV20 00:00:00 [place] [facility] (Prevnar 20) Branch Influenza Virus 2022-03-27 Completed Universit y of Vaccine Quad .5 mL 00:00:00 [facility] IM 6+ MO Branch Influenza Virus 2021-10-11 Completed Universit y of Vaccine,quad 00:00:00 [place] [facility],preserve Free Branch 65+ Influenza Virus 2021-10-11 Completed Universit y of Vaccine,quad 00:00:00 [place] [facility],preserve Free Branch 65+ Influenza Virus 2021-10-11 Completed Universit y of Vaccine,quad 00:00:00 [place] [facility],preserve Free Branch 65+ Influenza Virus 2021-10-11 Completed Universit y of Vaccine,quad 00:00:00 [place] [facility],preserve Free Branch 65+ Influenza Virus 2021-10-11 Completed Universit y of Vaccine,quad 00:00:00 [place] [facility],preserve Free Branch 65+ Influenza Virus 2021-10-11 Completed Universit y of Vaccine,quad 00:00:00 [place] [facility],preserve Free Branch 65+ Influenza Virus 2021-10-11 Completed Universit y of Vaccine,quad 00:00:00 [place] [facility],preserve Free Branch 65+ Influenza Virus 2021-10-11 Completed Universit y of Vaccine,quad 00:00:00 [place] [facility],preserve Free Branch 65+ Influenza Virus 2021-10-11 Completed Universit y of Vaccine,quad 00:00:00 [place] [facility],preserve Free Branch 65+ Influenza Virus 2021-10-11 Completed Universit y of Vaccine,quad 00:00:00 [place] [facility],preserve Free Branch 65+ Influenza Virus 2021-10-11 Completed Universit y of Vaccine,quad 00:00:00 [place] [facility],preserve Free Branch 65+ Influenza Virus 2021-10-11 Completed Universit y of Vaccine,quad 00:00:00 [place] [facility],preserve Free Branch 65+ Influenza Virus 2021-10-11 Completed Universit y of Vaccine,quad 00:00:00 [place] [facility],preserve Free Branch 65+ Influenza Virus 2021-10-11 Completed Universit y of Vaccine,quad 00:00:00 [place] [facility],preserve Free Branch 65+ Influenza Virus 2021-10-11 Completed Universit y of Vaccine,quad 00:00:00 [place] [facility],preserve Free Branch 65+ Influenza Virus 2021-10-11 Completed Universit y of Vaccine,quad 00:00:00 [place] [facility],preserve Free Branch 65+ Influenza Virus 2021-10-11 Completed Universit y of Vaccine,quad 00:00:00 [place] [facility],preserve Free Branch 65+ Influenza Virus 2021-10-11 Completed Universit y of Vaccine,quad 00:00:00 [place] [facility],preserve Free Branch 65+ Influenza Virus 2021-10-11 Completed Universit y of Vaccine,quad 00:00:00 [place] [facility],preserve Free Branch 65+ Influenza Virus 2021-10-11 Completed Universit y of Vaccine,quad 00:00:00 [place] [facility],preserve Free Branch 65+ Influenza Virus 2021-10-11 Completed Universit y of Vaccine,quad 00:00:00 [place] [facility],preserve Free Branch 65+ Influenza Virus 2021-10-11 Completed Universit y of Vaccine,quad 00:00:00 [place] [facility],preserve Free Branch 65+ Influenza Virus 2021-10-11 Completed Universit y of Vaccine,quad 00:00:00 [place] [facility],preserve Free Branch 65+ Influenza Virus 2021-10-11 Completed Universit y of Vaccine,quad 00:00:00 [place] [facility],preserve Free Branch 65+ Influenza Virus 2021-10-11 Completed Universit y of Vaccine,quad 00:00:00 [place] [facility],preserve Free Branch 65+ Influenza Virus 2021-10-11 Completed Universit y of Vaccine,quad 00:00:00 [place] [facility],preserve Free Branch 65+ Influenza Virus 2021-10-11 Completed Universit y of Vaccine,quad 00:00:00 [place] [facility],preserve Free Branch 65+ Influenza Virus 2021-10-11 Completed Universit y of Vaccine,quad 00:00:00 [place] [facility],preserve Free Branch 65+ Influenza Virus 2021-10-11 Completed Universit y of Vaccine,quad 00:00:00 [place] [facility],preserve Free Branch 65+ Influenza Virus 2021-10-11 Completed Universit y of Vaccine,quad 00:00:00 [place] [facility],preserve Free Branch 65+ Influenza Virus 2021-10-11 Completed Universit y of Vaccine,quad 00:00:00 [place] [facility],preserve Free Branch 65+ Influenza Virus 2021-10-11 Completed Universit y of Vaccine,quad 00:00:00 [place] [facility],preserve Free Branch 65+ Influenza Virus 2021-10-11 Completed Universit y of Vaccine,quad 00:00:00 [place] [facility],preserve Free Branch 65+ Influenza Virus 2021-10-11 Completed Universit y of Vaccine,quad 00:00:00 [place] [facility],preserve Free Branch 65+ Influenza Virus 2021-10-11 Completed Universit y of Vaccine,quad 00:00:00 [place] [facility],preserve Free Branch 65+ Influenza Virus 2021-10-11 Completed Universit y of Vaccine,quad 00:00:00 [place] [facility],preserve Free Branch 65+ Influenza Virus 2021-10-11 Completed Universit y of Vaccine,quad 00:00:00 [place] [facility],preserve Free Branch 65+ Influenza Virus 2021-10-11 Completed Universit y of Vaccine,quad 00:00:00 [place] [facility],preserve Free Branch 65+ Influenza Virus 2021-10-11 Completed Universit y of Vaccine,quad 00:00:00 [place] [facility],preserve Free Branch 65+ Influenza Virus 2021-10-11 Completed Universit y of Vaccine,quad 00:00:00 [place] [facility],preserve Free Branch 65+ Influenza Virus 2021-10-11 Completed Universit y of Vaccine,quad 00:00:00 [place] [facility],preserve Free Branch 65+ Influenza Virus 2021-10-11 Completed Universit y of Vaccine,quad 00:00:00 [place] [facility],preserve Free Branch 65+ Influenza Virus 2021-10-11 Completed Universit y of Vaccine,quad 00:00:00 [place] [facility],preserve Free Branch 65+ Influenza Virus 2021-10-11 Completed Universit y of Vaccine,quad 00:00:00 [place] [facility],preserve Free Branch 65+ Influenza Virus 2021-10-11 Completed Universit y of Vaccine,quad 00:00:00 [place] [facility],preserve Free Branch 65+ Influenza Virus 2021-10-11 Completed Universit y of Vaccine,quad 00:00:00 [place] [facility],preserve Free Branch 65+ Influenza Virus 2021-10-11 Completed Universit y of Vaccine,quad 00:00:00 [place] [facility],preserve Free Branch 65+ Influenza Virus 2021-10-11 Completed Universit y of Vaccine,quad 00:00:00 [place] [facility],preserve Free Branch 65+ Influenza Virus 2021-10-11 Completed Universit y of Vaccine,quad 00:00:00 [place] [facility],preserve Free Branch 65+ Influenza Virus 2021-10-11 Completed Universit y of Vaccine,quad 00:00:00 [place] [facility],preserve Free Branch 65+ Influenza Virus 2021-10-11 Completed Universit y of Vaccine,quad 00:00:00 [place] [facility],preserve Free Branch 65+ Influenza Virus 2021-10-11 Completed Universit y of Vaccine,quad 00:00:00 [place] [facility],preserve Free Branch 65+ Influenza Virus 2021-10-11 Completed Universit y of Vaccine,quad 00:00:00 [place] [facility],preserve Free Branch 65+ Influenza Virus 2021-10-11 Completed Universit y of Vaccine,quad 00:00:00 [place] [facility],preserve Free Branch 65+ Influenza Virus 2021-10-11 Completed Universit y of Vaccine,quad 00:00:00 [place] [facility],preserve Free Branch 65+ SARS-COV-2 COVID-19 2021-07-19 Completed Unive rsity of MODERNA 0.25ML 00:00:00 [place] [facility] BOOSTER VACCINE Branch SARS-COV-2 COVID-19 2021-07-19 Completed Unive rsity of MODERNA 0.25ML 00:00:00 [place] [facility] BOOSTER VACCINE Branch SARS-COV-2 COVID-19 2021-07-19 Completed Unive rsity of MODERNA 0.25ML 00:00:00 [place] [facility] BOOSTER VACCINE Branch SARS-COV-2 COVID-19 2021-07-19 Completed Unive rsity of MODERNA 0.25ML 00:00:00 [place] [facility] BOOSTER VACCINE Branch SARS-COV-2 COVID-19 2021-07-19 Completed Unive rsity of MODERNA 0.25ML 00:00:00 [place] [facility] BOOSTER VACCINE Branch SARS-COV-2 COVID-19 2021-07-19 Completed Unive rsity of MODERNA 0.25ML 00:00:00 [place] [facility] BOOSTER VACCINE Branch SARS-COV-2 COVID-19 2021-07-19 Completed Unive rsity of MODERNA 0.25ML 00:00:00 [place] [facility] BOOSTER VACCINE Branch SARS-COV-2 COVID-19 2021-07-19 Completed Unive rsity of MODERNA 0.25ML 00:00:00 [place] [facility] BOOSTER VACCINE Branch SARS-COV-2 COVID-19 2021-07-19 Completed Unive rsity of MODERNA 0.25ML 00:00:00 [place] [facility] BOOSTER VACCINE Branch SARS-COV-2 COVID-19 2021-07-19 Completed Unive rsity of MODERNA 0.25ML 00:00:00 [place] [facility] BOOSTER VACCINE Branch SARS-COV-2 COVID-19 2021-07-19 Completed Unive rsity of MODERNA 0.25ML 00:00:00 [place] [facility] BOOSTER VACCINE Branch SARS-COV-2 COVID-19 2021-07-19 Completed Unive rsity of MODERNA 0.25ML 00:00:00 [place] [facility] BOOSTER VACCINE Branch SARS-COV-2 COVID-19 2021-07-19 Completed Unive rsity of MODERNA 0.25ML 00:00:00 [place] [facility] BOOSTER VACCINE Branch SARS-COV-2 COVID-19 2021-07-19 Completed Unive rsity of MODERNA 0.25ML 00:00:00 [place] [facility] BOOSTER VACCINE Branch SARS-COV-2 COVID-19 2021-07-19 Completed Unive rsity of MODERNA 0.25ML 00:00:00 [place] [facility] BOOSTER VACCINE Branch SARS-COV-2 COVID-19 2021-07-19 Completed Unive rsity of MODERNA 0.25ML 00:00:00 [place] [facility] BOOSTER VACCINE Branch SARS-COV-2 COVID-19 2021-07-19 Completed Unive rsity of MODERNA 0.25ML 00:00:00 [place] [facility] BOOSTER VACCINE Branch SARS-COV-2 COVID-19 2021-07-19 Completed Unive rsity of MODERNA 0.25ML 00:00:00 [place] [facility] BOOSTER VACCINE Branch SARS-COV-2 COVID-19 2021-07-19 Completed Unive rsity of MODERNA 0.25ML 00:00:00 [place] [facility] BOOSTER VACCINE Branch SARS-COV-2 COVID-19 2021-07-19 Completed Unive rsity of MODERNA 0.25ML 00:00:00 [place] [facility] BOOSTER VACCINE Branch SARS-COV-2 COVID-19 2021-07-19 Completed Unive rsity of MODERNA 0.25ML 00:00:00 [place] [facility] BOOSTER VACCINE Branch SARS-COV-2 COVID-19 2021-07-19 Completed Unive rsity of MODERNA 0.25ML 00:00:00 [place] [facility] BOOSTER VACCINE Branch SARS-COV-2 COVID-19 2021-07-19 Completed Unive rsity of MODERNA 0.25ML 00:00:00 [place] [facility] BOOSTER VACCINE Branch SARS-COV-2 COVID-19 2021-07-19 Completed Unive rsity of MODERNA 0.25ML 00:00:00 [place] [facility] BOOSTER VACCINE Branch SARS-COV-2 COVID-19 2021-07-19 Completed Unive rsity of MODERNA 0.25ML 00:00:00 [place] [facility] BOOSTER VACCINE Branch SARS-COV-2 COVID-19 2021-07-19 Completed Unive rsity of MODERNA 0.25ML 00:00:00 [place] [facility] BOOSTER VACCINE Branch SARS-COV-2 COVID-19 2021-07-19 Completed Unive rsity of MODERNA 0.25ML 00:00:00 [place] [facility] BOOSTER VACCINE Branch SARS-COV-2 COVID-19 2021-07-19 Completed Unive rsity of MODERNA 0.25ML 00:00:00 [place] [facility] BOOSTER VACCINE Branch SARS-COV-2 COVID-19 2021-07-19 Completed Unive rsity of MODERNA 0.25ML 00:00:00 [place] [facility] BOOSTER VACCINE Branch SARS-COV-2 COVID-19 2021-07-19 Completed Unive rsity of MODERNA 0.25ML 00:00:00 [place] [facility] BOOSTER VACCINE Branch SARS-COV-2 COVID-19 2021-07-19 Completed Unive rsity of MODERNA 0.25ML 00:00:00 [place] [facility] BOOSTER VACCINE Branch SARS-COV-2 COVID-19 2021-07-19 Completed Unive rsity of MODERNA 0.25ML 00:00:00 [place] [facility] BOOSTER VACCINE Branch SARS-COV-2 COVID-19 2021-07-19 Completed Unive rsity of MODERNA 0.25ML 00:00:00 [place] [facility] BOOSTER VACCINE Branch SARS-COV-2 COVID-19 2021-07-19 Completed Unive rsity of MODERNA 0.25ML 00:00:00 [place] [facility] BOOSTER VACCINE Branch SARS-COV-2 COVID-19 2021-07-19 Completed Unive rsity of MODERNA 0.25ML 00:00:00 [place] [facility] BOOSTER VACCINE Branch SARS-COV-2 COVID-19 2021-07-19 Completed Unive rsity of MODERNA 0.25ML 00:00:00 [place] [facility] BOOSTER VACCINE Branch SARS-COV-2 COVID-19 2021-07-19 Completed Unive rsity of MODERNA 0.25ML 00:00:00 [place] [facility] BOOSTER VACCINE Branch SARS-COV-2 COVID-19 2021-07-19 Completed Unive rsity of MODERNA 0.25ML 00:00:00 [place] [facility] BOOSTER VACCINE Branch SARS-COV-2 COVID-19 2021-07-19 Completed Unive rsity of MODERNA 0.25ML 00:00:00 [place] [facility] BOOSTER VACCINE Branch SARS-COV-2 COVID-19 2021-07-19 Completed Unive rsity of MODERNA 0.25ML 00:00:00 [place] [facility] BOOSTER VACCINE Branch SARS-COV-2 COVID-19 2021-07-19 Completed Unive rsity of MODERNA 0.25ML 00:00:00 [place] [facility] BOOSTER VACCINE Branch SARS-COV-2 COVID-19 2021-07-19 Completed Unive rsity of MODERNA 0.25ML 00:00:00 [place] [facility] BOOSTER VACCINE Branch SARS-COV-2 COVID-19 2021-07-19 Completed Unive rsity of MODERNA 0.25ML 00:00:00 [place] [facility] BOOSTER VACCINE Branch SARS-COV-2 COVID-19 2021-07-19 Completed Unive rsity of MODERNA 0.25ML 00:00:00 [place] [facility] BOOSTER VACCINE Branch SARS-COV-2 COVID-19 2021-07-19 Completed Unive rsity of MODERNA 0.25ML 00:00:00 [place] [facility] BOOSTER VACCINE Branch SARS-COV-2 COVID-19 2021-07-19 Completed Unive rsity of MODERNA 0.25ML 00:00:00 [place] [facility] BOOSTER VACCINE Branch SARS-COV-2 COVID-19 2021-07-19 Completed Unive rsity of MODERNA 0.25ML 00:00:00 [place] [facility] BOOSTER VACCINE Branch SARS-COV-2 COVID-19 2021-07-19 Completed Unive rsity of MODERNA 0.25ML 00:00:00 [place] [facility] BOOSTER VACCINE Branch SARS-COV-2 COVID-19 2021-07-19 Completed Unive rsity of MODERNA 0.25ML 00:00:00 [place] [facility] BOOSTER VACCINE Branch SARS-COV-2 COVID-19 2021-07-19 Completed Unive rsity of MODERNA 0.25ML 00:00:00 [place] [facility] BOOSTER VACCINE Branch SARS-COV-2 COVID-19 2021-07-19 Completed Unive rsity of MODERNA 0.25ML 00:00:00 [place] [facility] BOOSTER VACCINE Branch SARS-COV-2 COVID-19 2021-07-19 Completed Unive rsity of MODERNA 0.25ML 00:00:00 [place] [facility] BOOSTER VACCINE Branch SARS-COV-2 COVID-19 2021-07-19 Completed Unive rsity of MODERNA 0.25ML 00:00:00 [place] [facility] BOOSTER VACCINE Branch SARS-COV-2 COVID-19 2021-07-19 Completed Unive rsity of MODERNA 0.25ML 00:00:00 [place] [facility] BOOSTER VACCINE Branch SARS-COV-2 COVID-19 2021-07-19 Completed Unive rsity of MODERNA 0.25ML 00:00:00 [place] [facility] BOOSTER VACCINE Branch Influenza Virus 2021-04-23 Completed Universit [facility] of Vaccine Quad .5 mL 00:00:00 [facility] IM 6+ MO Branch Influenza Virus 2021-04-23 Completed Universit y of Vaccine Quad .5 mL 00:00:00 [facility] IM 6+ MO Branch Pneumococcal 2020-12-09 Completed University o f Polysaccharide, 00:00:00 [facility] ical PPSV23 (PNEUMOVAX) Branch Pneumococcal 2020-12-09 Completed University o f Polysaccharide, 00:00:00 [facility] ical PPSV23 (PNEUMOVAX) Branch Influenza Virus 2020-10-21 Completed Universit y of Vaccine Recomb Quad 00:00:00 [facility], Preserv and ABX Branc h Free 18-64 YRS Influenza Virus 2020-10-21 Completed Universit y of Vaccine Recomb Quad 00:00:00 [facility], Preserv and ABX Branc h Free 18-64 YRS SARS-COV-2 COVID-19 2020-08-31 Completed Unive rsity of MODERNA 12+ YRS 00:00:00 [place] [facility] ical VACCINE Branch SARS-COV-2 COVID-19 2020-08-31 Completed Unive rsity of MODERNA 12+ YRS 00:00:00 [place] [facility] VACCINE Branch SARS-COV-2 COVID-19 2020-08-31 Completed Unive rsity of MODERNA 12+ YRS 00:00:00 [place] [facility] VACCINE Branch SARS-COV-2 COVID-19 2020-08-31 Completed Unive rsity of MODERNA 12+ YRS 00:00:00 [place] [facility] ical VACCINE Branch SARS-COV-2 COVID-19 2020-08-31 Completed Unive rsity of MODERNA 12+ YRS 00:00:00 [place] [facility] ical VACCINE Branch SARS-COV-2 COVID-19 2020-08-31 Completed Unive rsity of MODERNA 12+ YRS 00:00:00 [place] [facility] ical VACCINE Branch SARS-COV-2 COVID-19 2020-08-31 Completed Unive rsity of MODERNA 12+ YRS 00:00:00 [place] [facility] ical VACCINE Branch SARS-COV-2 COVID-19 2020-08-31 Completed Unive rsity of MODERNA 12+ YRS 00:00:00 [place] [facility] VACCINE Branch SARS-COV-2 COVID-19 2020-08-31 Completed Unive rsity of MODERNA 12+ YRS 00:00:00 [place] [facility] VACCINE Branch SARS-COV-2 COVID-19 2020-08-31 Completed Unive rsity of MODERNA 12+ YRS 00:00:00 [place] [facility] VACCINE Branch SARS-COV-2 COVID-19 2020-08-31 Completed Unive rsity of MODERNA 12+ YRS 00:00:00 [place] [facility] VACCINE Branch SARS-COV-2 COVID-19 2020-08-31 Completed Unive rsity of MODERNA 12+ YRS 00:00:00 [place] [facility] VACCINE Branch SARS-COV-2 COVID-19 2020-08-31 Completed Unive rsity of MODERNA 12+ YRS 00:00:00 [place] [facility] VACCINE Branch SARS-COV-2 COVID-19 2020-08-31 Completed Unive rsity of MODERNA 12+ YRS 00:00:00 [place] [facility] VACCINE Branch SARS-COV-2 COVID-19 2020-08-31 Completed Unive rsity of MODERNA 12+ YRS 00:00:00 [place] [facility] VACCINE Branch SARS-COV-2 COVID-19 2020-08-31 Completed Unive rsity of MODERNA 12+ YRS 00:00:00 [place] [facility] VACCINE Branch SARS-COV-2 COVID-19 2020-08-31 Completed Unive rsity of MODERNA 12+ YRS 00:00:00 [place] [facility] VACCINE Branch SARS-COV-2 COVID-19 2020-08-31 Completed Unive rsity of MODERNA 12+ YRS 00:00:00 [place] [facility] VACCINE Branch SARS-COV-2 COVID-19 2020-08-31 Completed Unive rsity of MODERNA 12+ YRS 00:00:00 [place] [facility] VACCINE Branch SARS-COV-2 COVID-19 2020-08-31 Completed Unive rsity of MODERNA 12+ YRS 00:00:00 [place] [facility] VACCINE Branch SARS-COV-2 COVID-19 2020-08-31 Completed Unive rsity of MODERNA 12+ YRS 00:00:00 [place] [facility] VACCINE [facility] SARS-COV-2 COVID-19 2020-08-31 Completed [facility] 12+ YRS 00:00:00 [facility] SARS-COV-2 COVID-19 2020-08-31 Completed [facility] 12+ YRS 00:00:00 [facility] SARS-COV-2 COVID-19 2020-08-31 Completed [facility] 12+ YRS 00:00:00 [facility] SARS-COV-2 COVID-19 2020-08-31 Completed [facility] 12+ YRS 00:00:00 [facility] SARS-COV-2 COVID-19 2020-08-31 Completed [facility] 12+ YRS 00:00:00 [facility] SARS-COV-2 COVID-19 2020-08-31 Completed [facility] 12+ YRS 00:00:00 [facility] SARS-COV-2 COVID-19 2020-08-31 Completed [facility] 12+ YRS 00:00:00 [facility] SARS-COV-2 COVID-19 2020-08-31 Completed [facility] 12+ YRS 00:00:00 [place] [facility] SARS-COV-2 COVID-19 2020-08-31 Completed [facility] 12+ YRS 00:00:00 [facility] SARS-COV-2 COVID-19 2020-08-31 Completed [facility] 12+ YRS 00:00:00 [facility] SARS-COV-2 COVID-19 2020-08-31 Completed [facility] 12+ YRS 00:00:00 [facility] SARS-COV-2 COVID-19 2020-08-31 Completed [facility] 12+ YRS 00:00:00 [facility] SARS-COV-2 COVID-19 2020-08-31 Completed [facility] 12+ YRS 00:00:00 [facility] SARS-COV-2 COVID-19 2020-08-31 Completed [facility] 12+ YRS 00:00:00 [facility] SARS-COV-2 COVID-19 2020-08-31 Completed [facility] 12+ YRS 00:00:00 [place] [facility] SARS-COV-2 COVID-19 2020-08-31 Completed [facility] 12+ YRS 00:00:00 [facility] SARS-COV-2 COVID-19 2020-08-31 Completed [facility] 12+ YRS 00:00:00 [place] [facility] SARS-COV-2 COVID-19 2020-08-31 Completed [facility] 12+ YRS 00:00:00 [facility] SARS-COV-2 COVID-19 2020-08-31 Completed [facility] 12+ YRS 00:00:00 [facility] SARS-COV-2 COVID-19 2020-08-31 Completed [facility] 12+ YRS 00:00:00 [facility] SARS-COV-2 COVID-19 2020-08-31 Completed [facility] 12+ YRS 00:00:00 [facility] SARS-COV-2 COVID-19 2020-08-31 Completed [facility] 12+ YRS 00:00:00 [facility] SARS-COV-2 COVID-19 2020-08-31 Completed [facility] 12+ YRS 00:00:00 [facility] SARS-COV-2 COVID-19 2020-08-31 Completed [facility] 12+ YRS 00:00:00 [facility] SARS-COV-2 COVID-19 2020-08-31 Completed [facility] 12+ YRS 00:00:00 [facility] SARS-COV-2 COVID-19 2020-08-31 Completed [facility] 12+ YRS 00:00:00 [facility] SARS-COV-2 COVID-19 2020-08-31 Completed [facility] 12+ YRS 00:00:00 [facility] SARS-COV-2 COVID-19 2020-08-31 Completed [facility] 12+ YRS 00:00:00 [facility] SARS-COV-2 COVID-19 2020-08-31 Completed [facility] 12+ YRS 00:00:00 [facility] SARS-COV-2 COVID-19 2020-08-31 Completed [facility] 12+ YRS 00:00:00 [facility] SARS-COV-2 COVID-19 2020-08-31 Completed [facility] 12+ YRS 00:00:00 [facility] SARS-COV-2 COVID-19 2020-08-31 Completed [facility] 12+ YRS 00:00:00 [facility] SARS-COV-2 COVID-19 2020-08-31 Completed [facility] 12+ YRS 00:00:00 [facility] SARS-COV-2 COVID-19 2020-08-31 Completed [facility] 12+ YRS 00:00:00 [facility] SARS-COV-2 COVID-19 2020-08-03 Completed [facility] 12+ YRS 00:00:00 [facility] SARS-COV-2 COVID-19 2020-08-03 Completed [facility] 12+ YRS 00:00:00 [facility] SARS-COV-2 COVID-19 2020-08-03 Completed [facility] 12+ YRS 00:00:00 [facility] SARS-COV-2 COVID-19 2020-08-03 Completed [facility] 12+ YRS 00:00:00 [facility] SARS-COV-2 COVID-19 2020-08-03 Completed [facility] 12+ YRS 00:00:00 [facility] SARS-COV-2 COVID-19 2020-08-03 Completed [facility] 12+ YRS 00:00:00 [facility] SARS-COV-2 COVID-19 2020-08-03 Completed [facility] 12+ YRS 00:00:00 [facility] SARS-COV-2 COVID-19 2020-08-03 Completed [facility] 12+ YRS 00:00:00 [place] [facility] SARS-COV-2 COVID-19 2020-08-03 Completed [facility] 12+ YRS 00:00:00 [place] [facility] SARS-COV-2 COVID-19 2020-08-03 Completed [facility] 12+ YRS 00:00:00 [facility] SARS-COV-2 COVID-19 2020-08-03 Completed [facility] 12+ YRS 00:00:00 [facility] SARS-COV-2 COVID-19 2020-08-03 Completed [facility] 12+ YRS 00:00:00 [facility] SARS-COV-2 COVID-19 2020-08-03 Completed [facility] 12+ YRS 00:00:00 [facility] SARS-COV-2 COVID-19 2020-08-03 Completed [facility] 12+ YRS 00:00:00 [facility] SARS-COV-2 COVID-19 2020-08-03 Completed [facility] 12+ YRS 00:00:00 [facility] SARS-COV-2 COVID-19 2020-08-03 Completed [facility] 12+ YRS 00:00:00 [facility] SARS-COV-2 COVID-19 2020-08-03 Completed [facility] 12+ YRS 00:00:00 [facility] SARS-COV-2 COVID-19 2020-08-03 Completed [facility] 12+ YRS 00:00:00 [facility] SARS-COV-2 COVID-19 2020-08-03 Completed [facility] 12+ YRS 00:00:00 [facility] SARS-COV-2 COVID-19 2020-08-03 Completed [facility] 12+ YRS 00:00:00 [facility] SARS-COV-2 COVID-19 2020-08-03 Completed [facility] 12+ YRS 00:00:00 [facility] SARS-COV-2 COVID-19 2020-08-03 Completed [facility] 12+ YRS 00:00:00 [facility] SARS-COV-2 COVID-19 2020-08-03 Completed [facility] 12+ YRS 00:00:00 [facility] SARS-COV-2 COVID-19 2020-08-03 Completed [facility] 12+ YRS 00:00:00 [facility] SARS-COV-2 COVID-19 2020-08-03 Completed [facility] 12+ YRS 00:00:00 [facility] SARS-COV-2 COVID-19 2020-08-03 Completed [facility] 12+ YRS 00:00:00 [facility] SARS-COV-2 COVID-19 2020-08-03 Completed [facility] 12+ YRS 00:00:00 [facility] SARS-COV-2 COVID-19 2020-08-03 Completed [facility] 12+ YRS 00:00:00 [facility] SARS-COV-2 COVID-19 2020-08-03 Completed [facility] 12+ YRS 00:00:00 [facility] SARS-COV-2 COVID-19 2020-08-03 Completed [facility] 12+ YRS 00:00:00 [facility] SARS-COV-2 COVID-19 2020-08-03 Completed [facility] 12+ YRS 00:00:00 [facility] SARS-COV-2 COVID-19 2020-08-03 Completed [facility] 12+ YRS 00:00:00 [facility] SARS-COV-2 COVID-19 2020-08-03 Completed [facility] 12+ YRS 00:00:00 [place] [facility] SARS-COV-2 COVID-19 2020-08-03 Completed [facility] 12+ YRS 00:00:00 [facility] SARS-COV-2 COVID-19 2020-08-03 Completed [facility] 12+ YRS 00:00:00 [place] [facility] SARS-COV-2 COVID-19 2020-08-03 Completed [facility] 12+ YRS 00:00:00 [facility] SARS-COV-2 COVID-19 2020-08-03 Completed [facility] 12+ YRS 00:00:00 [facility] SARS-COV-2 COVID-19 2020-08-03 Completed [facility] 12+ YRS 00:00:00 [place] [facility] SARS-COV-2 COVID-19 2020-08-03 Completed [facility] 12+ YRS 00:00:00 [facility] SARS-COV-2 COVID-19 2020-08-03 Completed [facility] 12+ YRS 00:00:00 [place] [facility] SARS-COV-2 COVID-19 2020-08-03 Completed [facility] 12+ YRS 00:00:00 [facility] SARS-COV-2 COVID-19 2020-08-03 Completed [facility] 12+ YRS 00:00:00 [place] [facility] SARS-COV-2 COVID-19 2020-08-03 Completed [facility] 12+ YRS 00:00:00 [facility] SARS-COV-2 COVID-19 2020-08-03 Completed [facility] 12+ YRS 00:00:00 [place] [facility] SARS-COV-2 COVID-19 2020-08-03 Completed [facility] 12+ YRS 00:00:00 [place] [facility] SARS-COV-2 COVID-19 2020-08-03 Completed [facility] 12+ YRS 00:00:00 [place] [facility] SARS-COV-2 COVID-19 2020-08-03 Completed [facility] 12+ YRS 00:00:00 [place] [facility] SARS-COV-2 COVID-19 2020-08-03 Completed [facility] 12+ YRS 00:00:00 [place] [facility] SARS-COV-2 COVID-19 2020-08-03 Completed [facility] 12+ YRS 00:00:00 [place] [facility] SARS-COV-2 COVID-19 2020-08-03 Completed [facility] 12+ YRS 00:00:00 [place] [facility] SARS-COV-2 COVID-19 2020-08-03 Completed [facility] 12+ YRS 00:00:00 [place] [facility] SARS-COV-2 COVID-19 2020-08-03 Completed [facility] 12+ YRS 00:00:00 [place] [facility] SARS-COV-2 COVID-19 2020-08-03 Completed [facility] 12+ YRS 00:00:00 [place] [facility] SARS-COV-2 COVID-19 2020-08-03 Completed [facility] 12+ YRS 00:00:00 [place] [facility] SARS-COV-2 COVID-19 2020-08-03 Completed [facility] 12+ YRS 00:00:00 [facility] Influenza Virus 2020-03-26 Completed [facility] .5 mL 00:00:00 [facility] 6[facility] MO [facility] Influenza Virus 2020-03-26 Completed [facility] .5 mL 00:00:00 [facility] 6[facility] MO [facility] Influenza Virus 2020-03-26 Completed [facility] .5 mL 00:00:00 [facility] 6[facility] MO [facility] Influenza Virus 2020-03-26 Completed [facility] .5 mL 00:00:00 [facility] 6[facility] MO [facility] Influenza Virus 2020-03-26 Completed [facility] .5 mL 00:00:00 [facility] 6[facility] MO [facility] Influenza Virus 2020-03-26 Completed [facility] .5 mL 00:00:00 [facility] 6[facility] MO [facility] Influenza Virus 2020-03-26 Completed [facility] .5 mL 00:00:00 [facility] 6[facility] MO [facility] Influenza Virus 2020-03-26 Completed [facility] .5 mL 00:00:00 [facility] 6[facility] MO [facility] Influenza Virus 2020-03-26 Completed [facility] .5 mL 00:00:00 [facility] 6[facility] MO [facility] Influenza Virus 2020-03-26 Completed [facility] .5 mL 00:00:00 [facility] 6[facility] MO [facility] Influenza Virus 2020-03-26 Completed [facility] .5 mL 00:00:00 [facility] 6[facility] MO [facility] Influenza Virus 2020-03-26 Completed [facility] .5 mL 00:00:00 [facility] 6[facility] MO [facility] Influenza Virus 2020-03-26 Completed [facility] .5 mL 00:00:00 [facility] 6[facility] MO [facility] Influenza Virus 2020-03-26 Completed [facility] .5 mL 00:00:00 [facility] 6[facility] MO [facility] Influenza Virus 2020-03-26 Completed [facility] .5 mL 00:00:00 [facility] 6[facility] MO [facility] Influenza Virus 2020-03-26 Completed [facility] .5 mL 00:00:00 [facility] 6[facility] MO [facility] Influenza Virus 2020-03-26 Completed [facility] .5 mL 00:00:00 [facility] 6[facility] MO [facility] Influenza Virus 2020-03-26 Completed [facility] .5 mL 00:00:00 [facility] 6[facility] MO [facility] Influenza Virus 2020-03-26 Completed [facility] .5 mL 00:00:00 [facility] 6[facility] MO [facility] Influenza Virus 2020-03-26 Completed [facility] .5 mL 00:00:00 [facility] 6[facility] MO [facility] Influenza Virus 2020-03-26 Completed [facility] .5 mL 00:00:00 [facility] 6[facility] MO [facility] Influenza Virus 2020-03-26 Completed [facility] .5 mL 00:00:00 [facility] 6[facility] MO [facility] Influenza Virus 2020-03-26 Completed [facility] .5 mL 00:00:00 [facility] 6[facility] MO [facility] Influenza Virus 2020-03-26 Completed [facility] .5 mL 00:00:00 [facility] 6[facility] MO [facility] Influenza Virus 2020-03-26 Completed [facility] .5 mL 00:00:00 [facility] 6[facility] MO [facility] Influenza Virus 2020-03-26 Completed [facility] .5 mL 00:00:00 [facility] 6[facility] MO [facility] Influenza Virus 2020-03-26 Completed [facility] .5 mL 00:00:00 [facility] 6[facility] MO [facility] Influenza Virus 2020-03-26 Completed [facility] .5 mL 00:00:00 [facility] 6[facility] MO [facility] Influenza Virus 2020-03-26 Completed [facility] .5 mL 00:00:00 [facility] 6[facility] MO [facility] Influenza Virus 2020-03-26 Completed [facility] .5 mL 00:00:00 [facility] 6[facility] MO [facility] Influenza Virus 2020-03-26 Completed [facility] .5 mL 00:00:00 [facility] 6[facility] MO [facility] Influenza Virus 2020-03-26 Completed [facility] .5 mL 00:00:00 [facility] 6[facility] MO [facility] Influenza Virus 2020-03-26 Completed [facility] .5 mL 00:00:00 [facility] 6[facility] MO [facility] Influenza Virus 2020-03-26 Completed [facility] .5 mL 00:00:00 [facility] 6[facility] MO [facility] Influenza Virus 2020-03-26 Completed [facility] .5 mL 00:00:00 [facility] 6[facility] MO [facility] Influenza Virus 2020-03-26 Completed [facility] .5 mL 00:00:00 [facility] 6[facility] MO [facility] Influenza Virus 2020-03-26 Completed [facility] .5 mL 00:00:00 [facility] 6[facility] MO [facility] Influenza Virus 2020-03-26 Completed [facility] .5 mL 00:00:00 [facility] 6[facility] MO [facility] Influenza Virus 2020-03-26 Completed [facility] .5 mL 00:00:00 [facility] 6[facility] MO [facility] Influenza Virus 2020-03-26 Completed [facility] .5 mL 00:00:00 [facility] 6[facility] MO [facility] Influenza Virus 2020-03-26 Completed [facility] .5 mL 00:00:00 [facility] 6[facility] MO [facility] Influenza Virus 2020-03-26 Completed [facility] .5 mL 00:00:00 [facility] 6[facility] MO [facility] Influenza Virus 2020-03-26 Completed [facility] .5 mL 00:00:00 [facility] 6[facility] MO [facility] Influenza Virus 2020-03-26 Completed [facility] .5 mL 00:00:00 [facility] 6[facility] MO [facility] Influenza Virus 2020-03-26 Completed [facility] .5 mL 00:00:00 [facility] 6[facility] MO [facility] Influenza Virus 2020-03-26 Completed [facility] .5 mL 00:00:00 [facility] 6[facility] MO [facility] Influenza Virus 2020-03-26 Completed [facility] .5 mL 00:00:00 [facility] 6[facility] MO [facility] Influenza Virus 2020-03-26 Completed [facility] .5 mL 00:00:00 [facility] 6[facility] MO [facility] Influenza Virus 2020-03-26 Completed [facility] .5 mL 00:00:00 [facility] 6[facility] MO [facility] Influenza Virus 2020-03-26 Completed [facility] .5 mL 00:00:00 [facility] 6[facility] MO [facility] Influenza Virus 2020-03-26 Completed [facility] .5 mL 00:00:00 [facility] 6[facility] MO [facility] Influenza Virus 2020-03-26 Completed [facility] .5 mL 00:00:00 [facility] 6[facility] MO [facility] Influenza Virus 2020-03-26 Completed [facility] .5 mL 00:00:00 [facility] 6[facility] MO [facility] Influenza Virus 2020-03-26 Completed [facility] .5 mL 00:00:00 [facility] 6[facility] MO [facility] Influenza Virus 2020-03-26 Completed [facility] .5 mL 00:00:00 [facility] 6+ MO Branch Influenza Virus 2020-01-29 Completed [facility] Vaccine 00:00:00 [facility] Influenza Virus 2020-01-29 Completed [facility] Vaccine 00:00:00 [facility] Influenza Virus 2020-01-29 Completed [facility] Vaccine 00:00:00 [facility] Influenza Virus 2020-01-29 Completed [facility] Vaccine 00:00:00 [facility] Influenza Virus 2020-01-29 Completed [facility] Vaccine 00:00:00 [facility] Influenza Virus 2020-01-29 Completed [facility] Vaccine 00:00:00 [facility] Influenza Virus 2020-01-29 Completed [facility] Vaccine 00:00:00 [facility] Influenza Virus 2020-01-29 Completed [facility] Vaccine 00:00:00 [facility] Influenza Virus 2020-01-29 Completed [facility] Vaccine 00:00:00 [facility] Influenza Virus 2020-01-29 Completed [facility] Vaccine 00:00:00 [facility] Influenza Virus 2020-01-29 Completed [facility] Vaccine 00:00:00 [facility] Influenza Virus 2020-01-29 Completed [facility] Vaccine 00:00:00 [facility] Influenza Virus 2020-01-29 Completed [facility] Vaccine 00:00:00 [facility] Influenza Virus 2020-01-29 Completed [facility] Vaccine 00:00:00 [facility] Influenza Virus 2020-01-29 Completed [facility] Vaccine 00:00:00 [facility] Influenza Virus 2020-01-29 Completed [facility] Vaccine 00:00:00 [facility] Influenza Virus 2020-01-29 Completed [facility] Vaccine 00:00:00 [facility] Influenza Virus 2020-01-29 Completed [facility] Vaccine 00:00:00 [facility] Influenza Virus 2020-01-29 Completed [facility] Vaccine 00:00:00 [facility] Influenza Virus 2020-01-29 Completed [facility] Vaccine 00:00:00 [facility] Influenza Virus 2020-01-29 Completed [facility] Vaccine 00:00:00 [facility] Influenza Virus 2020-01-29 Completed [facility] Vaccine 00:00:00 [facility] Influenza Virus 2020-01-29 Completed [facility] Vaccine 00:00:00 [facility] Influenza Virus 2020-01-29 Completed [facility] Vaccine 00:00:00 [facility] Influenza Virus 2020-01-29 Completed [facility] Vaccine 00:00:00 [facility] Influenza Virus 2020-01-29 Completed [facility] Vaccine 00:00:00 [facility] Influenza Virus 2020-01-29 Completed [facility] Vaccine 00:00:00 [facility] Influenza Virus 2020-01-29 Completed [facility] Vaccine 00:00:00 [facility] Influenza Virus 2020-01-29 Completed [facility] Vaccine 00:00:00 [facility] Influenza Virus 2020-01-29 Completed [facility] Vaccine 00:00:00 [facility] Influenza Virus 2020-01-29 Completed [facility] Vaccine 00:00:00 [facility] Influenza Virus 2020-01-29 Completed [facility] Vaccine 00:00:00 [facility] Influenza Virus 2020-01-29 Completed [facility] Vaccine 00:00:00 [facility] Influenza Virus 2020-01-29 Completed [facility] Vaccine 00:00:00 [facility] Influenza Virus 2020-01-29 Completed [facility] Vaccine 00:00:00 [facility] Influenza Virus 2020-01-29 Completed [facility] Vaccine 00:00:00 [facility] Influenza Virus 2020-01-29 Completed [facility] Vaccine 00:00:00 [facility] Influenza Virus 2020-01-29 Completed [facility] Vaccine 00:00:00 [facility] Influenza Virus 2020-01-29 Completed [facility] Vaccine 00:00:00 [facility] Influenza Virus 2020-01-29 Completed [facility] Vaccine 00:00:00 [facility] Influenza Virus 2020-01-29 Completed [facility] Vaccine 00:00:00 [facility] Influenza Virus 2020-01-29 Completed [facility] Vaccine 00:00:00 [facility] Influenza Virus 2020-01-29 Completed [facility] Vaccine 00:00:00 [facility] Influenza Virus 2020-01-29 Completed [facility] Vaccine 00:00:00 [facility] Influenza Virus 2020-01-29 Completed [facility] Vaccine 00:00:00 [facility] Influenza Virus 2020-01-29 Completed [facility] Vaccine 00:00:00 [facility] Influenza Virus 2020-01-29 Completed [facility] Vaccine 00:00:00 [facility] Influenza Virus 2020-01-29 Completed [facility] Vaccine 00:00:00 [facility] Influenza Virus 2020-01-29 Completed [facility] Vaccine 00:00:00 [facility] Influenza Virus 2020-01-29 Completed [facility] Vaccine 00:00:00 [facility] Influenza Virus 2020-01-29 Completed [facility] Vaccine 00:00:00 [facility] Influenza Virus 2020-01-29 Completed [facility] Vaccine 00:00:00 [facility] Influenza Virus 2020-01-29 Completed [facility] Vaccine 00:00:00 [facility] Influenza Virus 2020-01-29 Completed [facility] Vaccine 00:00:00 [facility] Influenza Virus 2020-01-29 Completed [facility] Vaccine 00:00:00 [facility] Influenza Virus 2019-03-31 Completed [facility]ine Quad .5 mL 00:00:00 [facility] 6+ MO Branch Influenza Virus 2019-03-31 Completed [facility] Vaccine [facility] .5 mL 00:00:00 [facility] IM 6+ MO Branch Influenza Virus 2019-03-31 Completed [facility] Vaccine [facility] .5 mL 00:00:00 [facility] 6[facility] MO [facility] Influenza Virus 2019-03-31 Completed [facility] Vaccine [facility] .5 mL 00:00:00 [facility] 6+ MO [facility] Influenza Virus 2019-03-31 Completed [facility]ine [facility] .5 mL 00:00:00 [facility] 6+ MO [facility] Influenza Virus 2019-03-31 Completed [facility]ine [facility] .5 mL 00:00:00 [facility] 6[facility] MO [facility] Influenza Virus 2019-03-31 Completed [facility]ine [facility] .5 mL 00:00:00 [facility] 6[facility] MO [facility] Influenza Virus 2019-03-31 Completed [facility]ine [facility] .5 mL 00:00:00 [facility] 6+ MO [facility] Influenza Virus 2019-03-31 Completed [facility] Vaccine Quad .5 mL 00:00:00 [facility] IM 6+ MO Branch Influenza Virus 2019-03-31 Completed [facility] Vaccine Quad .5 mL 00:00:00 [facility] 6+ MO Branch Influenza Virus 2019-03-31 Completed [facility] Vaccine Quad .5 mL 00:00:00 [facility] 6+ MO Branch Influenza Virus 2019-03-31 Completed [facility] .5 mL 00:00:00 [facility] 6[facility] Influenza Virus 2019-03-31 Completed [facility] .5 mL 00:00:00 [facility] 6[facility] Influenza Virus 2019-03-31 Completed [facility] .5 mL 00:00:00 [facility] 6+ [facility] Influenza Virus 2019-03-31 Completed [facility] .5 mL 00:00:00 [facility] Influenza Virus 2019-03-31 Completed [facility] .5 mL 00:00:00 [facility] Influenza Virus 2019-03-31 Completed [facility] .5 mL 00:00:00 [facility] Influenza Virus 2019-03-31 Completed [facility] .5 mL 00:00:00 [facility] Influenza Virus 2019-03-31 Completed [facility] .5 mL 00:00:00 [facility] Influenza Virus 2019-03-31 Completed [facility] .5 mL 00:00:00 [facility] Influenza Virus 2019-03-31 Completed [facility] .5 mL 00:00:00 [facility] Influenza Virus 2019-03-31 Completed [facility] .5 mL 00:00:00 [facility] Influenza Virus 2019-03-31 Completed [facility] .5 mL 00:00:00 [facility] Influenza Virus 2019-03-31 Completed [facility] .5 mL 00:00:00 [facility] Influenza Virus 2019-03-31 Completed [facility] .5 mL 00:00:00 [facility] Influenza Virus 2019-03-31 Completed [facility] .5 mL 00:00:00 [facility] Influenza Virus 2019-03-31 Completed [facility] .5 mL 00:00:00 [facility] Influenza Virus 2019-03-31 Completed [facility] .5 mL 00:00:00 [facility] Influenza Virus 2019-03-31 Completed [facility] .5 mL 00:00:00 [facility] Influenza Virus 2019-03-31 Completed [facility] .5 mL 00:00:00 [facility] Influenza Virus 2019-03-31 Completed [facility] .5 mL 00:00:00 [facility] Influenza Virus 2019-03-31 Completed [facility] .5 mL 00:00:00 [facility] Influenza Virus 2019-03-31 Completed [facility] .5 mL 00:00:00 [facility] Influenza Virus 2019-03-31 Completed [facility] .5 mL 00:00:00 [facility] Influenza Virus 2019-03-31 Completed [facility] .5 mL 00:00:00 [facility] Influenza Virus 2019-03-31 Completed [facility] .5 mL 00:00:00 [facility] Influenza Virus 2019-03-31 Completed [facility] .5 mL 00:00:00 [facility] Influenza Virus 2019-03-31 Completed [facility] .5 mL 00:00:00 [facility] Influenza Virus 2019-03-31 Completed [facility] .5 mL 00:00:00 [facility] Influenza Virus 2019-03-31 Completed [facility] .5 mL 00:00:00 [facility] Influenza Virus 2019-03-31 Completed [facility] .5 mL 00:00:00 [facility] Influenza Virus 2019-03-31 Completed [facility] .5 mL 00:00:00 [facility] Influenza Virus 2019-03-31 Completed [facility] .5 mL 00:00:00 [facility] Influenza Virus 2019-03-31 Completed [facility] .5 mL 00:00:00 [facility] Influenza Virus 2019-03-31 Completed [facility] .5 mL 00:00:00 [facility] Influenza Virus 2019-03-31 Completed [facility] .5 mL 00:00:00 [facility] Influenza Virus 2019-03-31 Completed [facility] .5 mL 00:00:00 [facility] Influenza Virus 2019-03-31 Completed [facility] .5 mL 00:00:00 [facility] Influenza Virus 2019-03-31 Completed [facility] .5 mL 00:00:00 [facility] Influenza Virus 2019-03-31 Completed [facility] .5 mL 00:00:00 [facility] Influenza Virus 2019-03-31 Completed [facility] .5 mL 00:00:00 [facility] Influenza Virus 2019-03-31 Completed [facility] .5 mL 00:00:00 [facility] Influenza Virus 2019-03-31 Completed [facility] .5 mL 00:00:00 [facility] Influenza Virus 2019-03-31 Completed [facility] .5 mL 00:00:00 [facility] Influenza Virus 2019-03-31 Completed [facility] .5 mL 00:00:00 [facility] Influenza Virus 2018-08-27 Completed [facility] of Vaccine Quad IM 3+ 00:00:00 [facility] Influenza Virus 2018-08-27 Completed [facility] y of Vaccine Quad IM 3+ 00:00:00 [facility] Influenza Virus 2018-08-27 Completed [facility] y of Vaccine [facility] IM 3+ 00:00:00 [facility] Influenza Virus 2018-08-27 Completed [facility] of [facility] IM 3+ 00:00:00 [facility] Influenza Virus 2018-08-27 Completed [facility] IM 3+ 00:00:00 [facility] Influenza Virus 2018-08-27 Completed [facility] IM 3+ 00:00:00 [facility] Influenza Virus 2018-08-27 Completed [facility] IM 3+ 00:00:00 [facility] Influenza Virus 2018-08-27 Completed [facility] IM 3+ 00:00:00 [facility] Influenza Virus 2018-08-27 Completed [facility] IM 3+ 00:00:00 [facility] Influenza Virus 2018-08-27 Completed [facility] IM 3+ 00:00:00 [facility] Influenza Virus 2018-08-27 Completed [facility] IM 3+ 00:00:00 [facility] Influenza Virus 2018-08-27 Completed [facility] IM 3+ 00:00:00 [facility] Influenza Virus 2018-08-27 Completed [facility] IM 3+ 00:00:00 [facility] Influenza Virus 2018-08-27 Completed [facility] IM 3+ 00:00:00 [facility] Influenza Virus 2018-08-27 Completed [facility] IM 3+ 00:00:00 [facility] Influenza Virus 2018-08-27 Completed [facility] IM 3+ 00:00:00 [facility] Influenza Virus 2018-08-27 Completed [facility] IM 3+ 00:00:00 [facility] Influenza Virus 2018-08-27 Completed [facility] IM 3+ 00:00:00 [facility] Influenza Virus 2018-08-27 Completed [facility] IM 3+ 00:00:00 [facility] Influenza Virus 2018-08-27 Completed [facility] IM 3+ 00:00:00 [facility] Influenza Virus 2018-08-27 Completed [facility] Vaccine [facility] IM 3+ 00:00:00 [facility] Influenza Virus 2018-08-27 Completed [facility] IM 3+ 00:00:00 [facility] Influenza Virus 2018-08-27 Completed [facility] IM 3+ 00:00:00 [facility] Influenza Virus 2018-08-27 Completed [facility] IM 3+ 00:00:00 [facility] Influenza Virus 2018-08-27 Completed [facility] IM 3+ 00:00:00 [facility] Influenza Virus 2018-08-27 Completed [facility] IM 3+ 00:00:00 [facility] Influenza Virus 2018-08-27 Completed [facility] IM 3+ 00:00:00 [facility] Influenza Virus 2018-08-27 Completed [facility] IM 3+ 00:00:00 [facility] Influenza Virus 2018-08-27 Completed [facility] IM 3+ 00:00:00 [facility] Influenza Virus 2018-08-27 Completed [facility] IM 3+ 00:00:00 [facility] Influenza Virus 2018-08-27 Completed [facility] IM 3+ 00:00:00 [facility] Influenza Virus 2018-08-27 Completed [facility] IM 3+ 00:00:00 [facility] Influenza Virus 2018-08-27 Completed [facility]ine [facility] IM 3+ 00:00:00 [facility] Influenza Virus 2018-08-27 Completed [facility]ine [facility] IM 3+ 00:00:00 [facility] Influenza Virus 2018-08-27 Completed [facility] IM 3+ 00:00:00 [facility] Influenza Virus 2018-08-27 Completed [facility] IM 3+ 00:00:00 [facility] Influenza Virus 2018-08-27 Completed [facility] IM 3+ 00:00:00 [facility] Influenza Virus 2018-08-27 Completed [facility] IM 3+ 00:00:00 [facility] Influenza Virus 2018-08-27 Completed [facility]ine [facility] IM 3+ 00:00:00 [facility] Influenza Virus 2018-08-27 Completed [facility] IM 3+ 00:00:00 [facility] Influenza Virus 2018-08-27 Completed [facility] IM 3+ 00:00:00 [facility] Influenza Virus 2018-08-27 Completed [facility] IM 3+ 00:00:00 [facility] Influenza Virus 2018-08-27 Completed [facility] IM 3+ 00:00:00 [facility] Influenza Virus 2018-08-27 Completed [facility] IM 3+ 00:00:00 [facility] Influenza Virus 2018-08-27 Completed [facility] IM 3+ 00:00:00 [facility] Influenza Virus 2018-08-27 Completed [facility] IM 3+ 00:00:00 [facility] Influenza Virus 2018-08-27 Completed [facility]ine [facility] IM 3+ 00:00:00 [facility] Influenza Virus 2018-08-27 Completed [facility] IM 3+ 00:00:00 [facility] Influenza Virus 2018-08-27 Completed [facility] IM 3+ 00:00:00 [facility] Influenza Virus 2018-08-27 Completed [facility] IM 3+ 00:00:00 [facility] Influenza Virus 2018-08-27 Completed [facility] IM 3+ 00:00:00 [facility] Influenza Virus 2018-08-27 Completed [facility] IM 3+ 00:00:00 [facility] Influenza Virus 2018-08-27 Completed [facility]ine [facility] IM 3+ 00:00:00 [facility] Influenza Virus 2018-08-27 Completed [facility]ine [facility] IM 3+ 00:00:00 [facility] Influenza Virus 2018-08-27 Completed [facility] Vaccine [facility] IM 3+ 00:00:00 [facility] TDAP 2018-02-23 Completed [facility] of 00:00:00 [facility] TDAP 2018-02-23 Completed [facility] of 00:00:00 [facility] TDAP 2018-02-23 Completed [facility] of 00:00:00 [facility] TDAP 2018-02-23 Completed [facility] of 00:00:00 [facility] TDAP 2018-02-23 Completed [facility] 00:00:00 [facility] TDAP 2018-02-23 Completed [facility] 00:00:00 [facility] TDAP 2018-02-23 Completed [facility] 00:00:00 [facility] TDAP 2018-02-23 Completed [facility] 00:00:00 [facility] TDAP 2018-02-23 Completed [facility] 00:00:00 [facility] TDAP 2018-02-23 Completed [facility] 00:00:00 [facility] TDAP 2018-02-23 Completed [facility] 00:00:00 [facility] TDAP 2018-02-23 Completed [facility] 00:00:00 [facility] TDAP 2018-02-23 Completed [facility] 00:00:00 [facility] TDAP 2018-02-23 Completed [facility] of 00:00:00 [facility] TDAP 2018-02-23 Completed [facility] 00:00:00 [facility] TDAP 2018-02-23 Completed [facility] 00:00:00 [facility] TDAP 2018-02-23 Completed [facility] 00:00:00 [facility] TDAP 2018-02-23 Completed [facility] 00:00:00 [facility] TDAP 2018-02-23 Completed [facility] 00:00:00 [facility] TDAP 2018-02-23 Completed [facility] 00:00:00 [facility] TDAP 2018-02-23 Completed [facility] 00:00:00 [facility] TDAP 2018-02-23 Completed [facility] of 00:00:00 [facility] TDAP 2018-02-23 Completed [facility] of 00:00:00 [facility] TDAP 2018-02-23 Completed [facility] of 00:00:00 [facility] TDAP 2018-02-23 Completed [facility] of 00:00:00 [facility] TDAP 2018-02-23 Completed [facility] of 00:00:00 [facility] TDAP 2018-02-23 Completed [facility] of 00:00:00 [facility] TDAP 2018-02-23 Completed [facility] 00:00:00 [facility] TDAP 2018-02-23 Completed [facility] 00:00:00 [facility] TDAP 2018-02-23 Completed [facility] 00:00:00 [facility] TDAP 2018-02-23 Completed [facility] of 00:00:00 [facility] TDAP 2018-02-23 Completed [facility] of 00:00:00 [facility] TDAP 2018-02-23 Completed [facility] of 00:00:00 [facility] TDAP 2018-02-23 Completed [facility] of 00:00:00 [facility] TDAP 2018-02-23 Completed [facility] of 00:00:00 [facility] TDAP 2018-02-23 Completed [facility] of 00:00:00 [facility] TDAP 2018-02-23 Completed [facility] of 00:00:00 [facility] TDAP 2018-02-23 Completed [facility] of 00:00:00 [facility] TDAP 2018-02-23 Completed [facility] of 00:00:00 [facility] TDAP 2018-02-23 Completed [facility] of 00:00:00 [facility] TDAP 2018-02-23 Completed [facility] of 00:00:00 [facility] TDAP 2018-02-23 Completed [facility] of 00:00:00 [facility] TDAP 2018-02-23 Completed [facility] of 00:00:00 [facility] TDAP 2018-02-23 Completed [facility] of 00:00:00 [facility] TDAP 2018-02-23 Completed [facility] of 00:00:00 [facility] TDAP 2018-02-23 Completed [facility] of 00:00:00 [facility] TDAP 2018-02-23 Completed [facility] of 00:00:00 [facility] TDAP 2018-02-23 Completed [facility] of 00:00:00 [facility] TDAP 2018-02-23 Completed [facility] of 00:00:00 [facility] TDAP 2018-02-23 Completed [facility] of 00:00:00 [facility] TDAP 2018-02-23 Completed [facility] of 00:00:00 [facility] TDAP 2018-02-23 Completed [facility] of 00:00:00 [facility] TDAP 2018-02-23 Completed [facility] of 00:00:00 [facility] TDAP 2018-02-23 Completed [facility] of 00:00:00 [facility] TDAP 2018-02-23 Completed [facility] of 00:00:00 [facility] Influenza Virus 2017-04-07 Completed Universit y of Vaccine 00:00:00 [facility] Influenza Virus 2017-04-07 Completed [facility] y of Vaccine 00:00:00 [facility] Influenza Virus 2017-04-07 Completed [facility] y of Vaccine 00:00:00 [facility] Influenza Virus 2017-04-07 Completed [facility] y of Vaccine 00:00:00 [facility] Influenza Virus 2017-04-07 Completed [facility]it y of Vaccine 00:00:00 [facility] Influenza Virus 2017-04-07 Completed [facility] y of Vaccine 00:00:00 [facility] Influenza Virus 2017-04-07 Completed [facility] y of Vaccine 00:00:00 [facility] Influenza Virus 2017-04-07 Completed [facility] y of Vaccine 00:00:00 [facility] Influenza Virus 2017-04-07 Completed [facility] y of Vaccine 00:00:00 [facility] Influenza Virus 2017-04-07 Completed [facility] y of Vaccine 00:00:00 [facility] Influenza Virus 2017-04-07 Completed [facility] y of Vaccine 00:00:00 [facility] Influenza Virus 2017-04-07 Completed [facility] y of Vaccine 00:00:00 [facility] Influenza Virus 2017-04-07 Completed [facility] y of Vaccine 00:00:00 [facility] Influenza Virus 2017-04-07 Completed [facility] y of Vaccine 00:00:00 [facility] Influenza Virus 2017-04-07 Completed [facility] y of Vaccine 00:00:00 [facility] Influenza Virus 2017-04-07 Completed [facility] y of Vaccine 00:00:00 [facility] Influenza Virus 2017-04-07 Completed [facility] y of Vaccine 00:00:00 [facility] Influenza Virus 2017-04-07 Completed [facility] y of Vaccine 00:00:00 [facility] Influenza Virus 2017-04-07 Completed [facility] y of Vaccine 00:00:00 [facility] Influenza Virus 2017-04-07 Completed [facility] y of Vaccine 00:00:00 [facility] Influenza Virus 2017-04-07 Completed [facility] y of Vaccine 00:00:00 [facility] Influenza Virus 2017-04-07 Completed [facility] y of Vaccine 00:00:00 [facility] Influenza Virus 2017-04-07 Completed [facility] y of Vaccine 00:00:00 [facility] Influenza Virus 2017-04-07 Completed [facility] y of Vaccine 00:00:00 [facility] Influenza Virus 2017-04-07 Completed [facility] y of Vaccine 00:00:00 [facility] Influenza Virus 2017-04-07 Completed [facility] y of Vaccine 00:00:00 [facility] Influenza Virus 2017-04-07 Completed [facility] y of Vaccine 00:00:00 [facility] Influenza Virus 2017-04-07 Completed [facility] y of Vaccine 00:00:00 [facility] Influenza Virus 2017-04-07 Completed [facility] y of Vaccine 00:00:00 [facility] Influenza Virus 2017-04-07 Completed [facility] y of Vaccine 00:00:00 [facility] Influenza Virus 2017-04-07 Completed [facility] y of Vaccine 00:00:00 [facility] Influenza Virus 2017-04-07 Completed [facility] y of Vaccine 00:00:00 [facility] Influenza Virus 2017-04-07 Completed [facility] y of Vaccine 00:00:00 [facility] Influenza Virus 2017-04-07 Completed [facility] y of Vaccine 00:00:00 [facility] Influenza Virus 2017-04-07 Completed [facility] y of Vaccine 00:00:00 [facility] Influenza Virus 2017-04-07 Completed [facility] y of Vaccine 00:00:00 [facility] Influenza Virus 2017-04-07 Completed [facility] y of Vaccine 00:00:00 [facility] Influenza Virus 2017-04-07 Completed [facility]it y of Vaccine 00:00:00 [facility] Influenza Virus 2017-04-07 Completed [facility] y of Vaccine 00:00:00 [facility] Influenza Virus 2017-04-07 Completed [facility]it y of Vaccine 00:00:00 [facility] Influenza Virus 2017-04-07 Completed [facility] y of Vaccine 00:00:00 [facility] Influenza Virus 2017-04-07 Completed [facility] y of Vaccine 00:00:00 [facility] Influenza Virus 2017-04-07 Completed [facility] y of Vaccine 00:00:00 [facility] Influenza Virus 2017-04-07 Completed [facility]it y of Vaccine 00:00:00 [facility] Influenza Virus 2017-04-07 Completed [facility] y of Vaccine 00:00:00 [facility] Influenza Virus 2017-04-07 Completed [facility] y of Vaccine 00:00:00 [facility] Influenza Virus 2017-04-07 Completed [facility]it y of Vaccine 00:00:00 [facility] Influenza Virus 2017-04-07 Completed [facility] y of Vaccine 00:00:00 [facility] Influenza Virus 2017-04-07 Completed [facility]it y of Vaccine 00:00:00 [facility] Influenza Virus 2017-04-07 Completed [facility] y of Vaccine 00:00:00 [facility] Influenza Virus 2017-04-07 Completed [facility] y of Vaccine 00:00:00 [facility] Influenza Virus 2017-04-07 Completed [facility]it y of Vaccine 00:00:00 [facility] Influenza Virus 2017-04-07 Completed [facility]it y of Vaccine 00:00:00 [facility] Influenza Virus 2017-04-07 Completed [facility] y of Vaccine 00:00:00 [facility] Influenza Virus 2017-04-07 Completed [facility] y of Vaccine 00:00:00 [facility] Vital Signs Vital Name Observation Time Observation Value Comments Source Systolic blood 2022-07-18 19:15:00 178 mm[Hg] Univer sity of pressure [facility] Diastolic blood 2022-07-18 19:15:00 77 mm[Hg] Unive rsity of pressure [facility] Heart rate 2022-07-18 19:14:00 96 /min [facility] Body height 2022-07-18 19:14:00 175.3 cm [facility] [place] Body weight 2022-07-18 19:14:00 81.239 kg [facility] [place] BMI 2022-07-18 19:14:00 26.45 kg/m2 [facility] Oxygen saturation in 2022-07-18 19:14:00 98 /min University of Arterial blood by [place] [employer] lisa Pulse oximetry Branch Systolic blood 2022-07-14 20:47:00 138 mm[Hg] Univer sity of pressure [facility] Diastolic blood 2022-07-14 20:47:00 77 mm[Hg] Unive rsity of pressure [facility] Heart rate 2022-07-14 20:47:00 76 /min [facility] Body temperature 2022-07-14 20:47:00 37.11 Krystal Univ ersity of [facility] Respiratory rate 2022-07-14 20:47:00 17 /min Univ ers[facility] Body weight 2022-07-14 20:47:00 78.518 kg [facility] BMI 2022-07-14 20:47:00 25.56 kg/m2 [facility] Oxygen saturation in 2022-07-14 20:47:00 97 /min University of Arterial blood by [employer] lisa Pulse oximetry Branch Systolic blood 2022-07-06 22:10:00 137 mm[Hg] Univer sity of pressure [facility] Diastolic blood 2022-07-06 22:10:00 67 mm[Hg] Unive rsity of pressure [facility] Heart rate 2022-07-06 22:10:00 79 /min [facility] Body temperature 2022-07-06 22:10:00 37.56 [place] Respiratory rate 2022-07-06 22:10:00 16 /min Univ ers[facility] Body height 2022-07-06 22:10:00 175.3 cm [facility] Body weight 2022-07-06 22:10:00 78.109 kg [facility] BMI 2022-07-06 22:10:00 25.43 kg/m2 [facility] Oxygen saturation in 2022-07-06 22:10:00 96 /min University of Arterial blood by [facility] Pulse oximetry Branch Body weight 2022-06-07 19:07:00 78.019 kg [facility] BMI 2022-06-07 19:07:00 25.40 kg/m2 [facility] Systolic blood 2022-05-17 18:16:00 157 mm[Hg] Univer sity of pressure [facility] Diastolic blood 2022-05-17 18:16:00 81 mm[Hg] Unive rsity of pressure [facility] Body weight 2022-05-17 18:16:00 78.019 kg [facility] BMI 2022-05-17 18:16:00 25.40 kg/m2 [facility] Heart rate 2022-05-17 18:13:00 73 /min [facility] Oxygen saturation in 2022-05-17 18:13:00 97 /min [facility] Arterial blood by [facility] lisa Pulse oximetry Branch Systolic blood 2022-05-16 18:23:00 179 mm[Hg] Univer sity of pressure [facility] Diastolic blood 2022-05-16 18:23:00 82 mm[Hg] Unive rsity of pressure [facility] Heart rate 2022-05-16 18:18:00 69 /min [facility] Body weight 2022-05-16 18:18:00 78.019 kg [facility] BMI 2022-05-16 18:18:00 25.40 kg/m2 [facility] Oxygen saturation in 2022-05-16 18:18:00 99 /min [facility] Arterial blood by [facility] Pulse oximetry Branch Body weight 2022-04-26 13:36:00 77.565 kg [facility] BMI 2022-04-26 13:36:00 25.25 kg/m2 [facility] Systolic blood 2022-04-22 18:49:00 167 mm[Hg] Univer sity of pressure [facility] Diastolic blood 2022-04-22 18:49:00 73 mm[Hg] Unive rsity of pressure [facility] Heart rate 2022-04-22 18:39:00 91 /min [facility] Body weight 2022-04-22 18:39:00 77.837 kg [facility] BMI 2022-04-22 18:39:00 25.34 kg/m2 [facility] Oxygen saturation in 2022-04-22 18:39:00 98 /min [facility] Arterial blood by [facility] Pulse oximetry Branch Systolic blood 2022-03-25 15:40:00 164 mm[Hg] Univer sity of pressure [facility] Diastolic blood 2022-03-25 15:40:00 76 mm[Hg] Unive rsity of pressure [facility] Heart rate 2022-03-25 15:38:00 85 /min [facility] Body temperature 2022-03-25 15:38:00 36.61 Krystal [facility] Respiratory rate 2022-03-25 15:38:00 16 /min [facility] Body height 2022-03-25 15:38:00 175.3 cm [facility] Body weight 2022-03-25 15:38:00 79.198 kg [facility] BMI 2022-03-25 15:38:00 25.78 kg/m2 [facility] Oxygen saturation in 2022-03-25 15:38:00 97 /min [facility] Arterial blood by [facility] Pulse oximetry Branch Systolic blood 2022-03-25 15:40:00 164 mm[Hg] Univer sity of pressure [facility] Diastolic blood 2022-03-25 15:40:00 76 mm[Hg] Unive [facility] Heart rate 2022-03-25 15:38:00 85 /min [facility] Body temperature 2022-03-25 15:38:00 36.61 Krystal [facility] Respiratory rate 2022-03-25 15:38:00 16 /min [facility] Body height 2022-03-25 15:38:00 175.3 cm [facility] Body weight 2022-03-25 15:38:00 79.198 kg [facility] BMI 2022-03-25 15:38:00 25.78 kg/m2 [facility] Oxygen saturation in 2022-03-25 15:38:00 97 /min [facility] Arterial blood by [facility] Pulse oximetry Branch Procedures Procedure Date / Time Performing Clinician Source Performed SARS-COV-2 COVID-19 2022-07-18 19:20:15 Ray Suh [facility] VACCINE 12 YRS+, BIVALENT Medica l Branch 0.5ML, IM (MODERNA BOOSTER) US RETROPERITONEAL 2022-07-12 21:38:52 Beti Ny [facility] COMPLETE [facility] POCT URINALYSIS AUTO 2022-07-06 00:00:00 Beti Ny [facility] OU CORNEAL PACHYMETRY, 2022-06-07 00:00:00 Mariola Berrios [facility] BOTH EYES Medical [place] ASSIGNMENT OF BENEFITS 2022-05-13 14:32:05 Doctor Unassigned, Un [facility] [place] [facility] OPHTHALMOLOGY DIAGNOSTIC 2022-04-26 05:01:00 Doctor Unassigned, [facility] TEST [place] [facility] OU CORNEAL PACHYMETRY, 2022-04-26 00:00:00 Brady Cardozo [facility] EYES [facility] OU ENDOTHELIAL CELL COUNT, 2022-04-26 00:00:00 [facility] OU SPECTRALIS OCT MACULA, 2022-04-26 00:00:00 Treasure Maurice [facility] BOTH EYES Medical Branch DIABETES TESTING REPORTS 2022-04-22 05:01:00 Doctor Josie, [facility] [place] [facility] NM MYOCARDIUM PERFUSION 2022-04-21 16:28:00 Chintan Richards [facility] STRESS AND REST [facility] NM MYOCARDIUM PERFUSION 2022-04-21 16:28:00 Chintan Richards [facility] STRESS AND REST Medical [place] NM MYOCARDIUM PERFUSION 2022-04-21 16:28:00 Chintan Richards [facility] STRESS AND REST [facility] NM MYOCARDIUM PERFUSION 2022-04-21 16:28:00 Chintan Richards [facility] STRESS AND REST [facility] ASSIGNMENT OF BENEFITS 2022-04-21 13:18:59 Doctor Josie [facility] DME/SUPPLY JUSTIFICATION 2022-04-15 05:01:00 Doctor Josie [facility] ROUTINE & RHYTHM 2022-03-25 15:47:54 Chintan Richards [facility] DIABETES TESTING REPORTS 2022-03-23 05:01:00 Doctor Galindo [facility] Plan of Care Planned Activity Planned Date Details Comments Source Encounters Start End Encounter Admission Attending Care Care Encounter Source Date/Time Date/Time Type Type Clinicians Facility Department ID 2022-03-16 Outpatient BRADY SUÁREZ [facility] OPH [id number] Univers 08:03:10 [facility] 2021-07-30 Outpatient Dominick BERRIOS [facility] OPH [id number] Univers 09:33:40 HUMAIR [facility] 2021-06-01 Emergency X [facility] OPH [id number] Univers 05:57:08 [facility] 2021-06-01 Outpatient Dominick ANTONIO [facility] OPH [id number] [facility] Outpatient R PACO [facility] OPH [id number] Univers 01:39:08 AIST [facility] 2021-05-29 Emergency [facility] [id number] Univers 00:20:50 [facility] 2022-11-17 2022-11-17 Outpatient R THOMAS ALEJANDRA [facility] [id number] Univers 13:30:00 13:30:[address] [facility] 2022-11-15 2022-11-15 [facility] [id number] Univers 13:00:00 13:00:00 ALINA [facility] 2022-10-18 2022-10-18 [facility] [id number] Univers 10:00:00 10:00:00 [facility] 2022-07-22 Outpatient R MAYRA [facility] [id number] Univers 11:30:00 11:30:00 ANNE-MARIE [facility] 2022-07-22 2022-07-22 Refill Ny [facility] 1.2.840.114 [id number] Univers 00:00:00 00:00:00 N JOAO 350.1.13.10 i ty of [facility] [place] [id number] Nm dicsallie YBARRA 059 [facility] 2022-07-18 2022-07-18 Office [facility] 1.2.840.114 [id number] Univers 13:15:00 13:30:00 Visit [facility] 350.1.13.10 it y of [place] 4.2.7.2.686 Hernan as DEONDRE?BLEA [phone] Nm dical KNEY 044 [facility] OFFICE [facility] 2022-07-18 2022-07-18 Outpatient R VIKASH [facility] [id number] Univers 13:15:00 13:15:00 RAY [facility] 2022-07-14 2022-07-14 Outpatient R NY THOMAS [facility] [id number] Univers 14:30:00 15:19:[address] [facility] 2022-07-14 2022-07-14 Office Maria Doloresmarcelino [facility] 1.2.840.114 [id number] Univers 14:30:00 15:19:45 Visit N [place] 350.1.13.10 i ty of [facility] 4.2.[place].2.[place] [id number] Nm dical NAL 059 [facility] 2022-07-12 2022-07-12 [facility] [id number] Univers 13:57:02 23:59:00 BETI guidry o brian [facility] 2022-07-12 2022-07-[address] [facility] 1.2.840.114 [id number] Univers 13:57:02 23:59:00 Encounter Beti SHEPHERD 350.1.13.10 ity of [facility] 4.2.7.2.[place] [id number] [facility] [address] [place] [address] 2022-07-06 2022-07-06 [employer] Supervisor Deja Toro Lab Main [facility] 1.2.8 40.114 [id number] Univers 17:00:00 17:15:00 Visit Beti Ny 350.1.13. 10 ity of [place].2.[place] [id number] Nm dical NAL 353 [facility] 2022-07-06 2022-07-06 Outpatient [facility] [id number] Univers 16:00:00 16:37:03 BETI torres [facility] 2022-07-06 2022-07-[address] [facility] 1.2.840.114 [id number] Univers 16:00:00 16:37:03 Visit Beti SHEPHER[place] 350.1.13.10 ity of [place].7.2.[place] [id number] Nm dical NAL 204 [facility] 2022-07-06 2022-07-06 Refnena [facility] 1.2.840.114 [id number] Univers 00:00:00 00:00:00 [facility] 350.1.13.10 it y of [place] 4.2.7.2.686 [place] as DEONDRE?BLEA [id number] Nm dical KNEY 044 [facility] OFFICE [facility] 2022-06-30 2022-06-30 Nurse Nurse, Ang Endo/Diab [facility] 1.2.8 40.114 [id number] Univers 13:00:00 14:57:04 Visit [facility] 350.1.13.10 ity of [place] 4.2.7.2.686 [place]an as DEONDRE?BLEA [id number] [facility] 220 [facility] OFFICE [facility] 2022-06-30 2022-06-30 Outpatient R VENU [facility] [id number] Univers 13:00:00 13:00:00 DARRYN [facility] 2022-06-27 2022-06-27 Outpatient R NAOMIE LIEBERMAN [facility] [id number] Univers 16:30:00 16:30:00 MIO AKBAR [facility] 2022-06-27 2022-06-27 [facility] 1.2.840.114 [id number] Univers 00:00:00 00:00:00 [facility] 350.1.13.10 it y of [place] 4.2.7.2.686 [place]an as DEONDRE?BLEA [id number] [address] OFFICE [facility] 2022-06-22 2022-06-22 [facility] 1.2.804.755 [id number] Univers 00:00:00 00:00:00 [facility] 350.1.13.10 it y of [place] 4.2.7.2.686 [place] as DEONDRE?BLEA [id number] [address] 2022-06-21 2022-06-21 [facility] 1.2.840.114 [id number] Univers 00:00:00 00:00:00 [facility] 350.1.13.10 it y of [place] 4.2.7.2.686 [place] as DEONDRE?BLEA [id number] [address] 2022-06-16 2022-06-16 [facility] 1.2.840.114 [id number] Univers 00:00:00 00:00:00 Ray HEALTH 350.1.13.10 it y of [place] 4.2.7.2.686 [place] as DEONDRE?BLEA [id number] Nm adán JOYCE [address] [place] MEDICAL OFFICE BUILDING 2022-06-07 2022-06-07 Outpatient R YASH [facility] [id number] Univers 13:00:00 13:36:[address] [facility] 2022-06-07 2022-06-07 Office [facility] 1.2.840.114 [id number] Univers 13:00:00 13:36:16 Visit [facility] 350.1.13.10 it y [place].2.[place] [id number] [address] 2022-06-06 2022-06-06 Refnena [facility] 1.2.840.114 [id number] Univers 00:00:00 00:00:00 Ray HEALTH 350.1.13.10 it y of [place] 4.2.7.2.686 [place]an as DEONDRE?BLEA [id number] Nm adán JOYCE [address] [place] MEDICAL OFFICE [facility] 2022-06-03 2022-06-03 Shayy [facility] 1.2.840.114 [id number] Univers 00:00:00 00:00:00 Ray HEALTH 350.1.13.10 it y of [place] 4.2.7.2.686 [place]an as DEONDRE?BLEA [id number] Nm adán JOYCE [address] [place] [address] OFFICE [facility] 2022-05-26 2022-05-26 Shayy [facility] 1.2.840.114 [id number] Univers 00:00:00 00:00:00 Ray HEALTH 350.1.13.10 it y of [place] 4.2.7.2.686 [place]an as DEONDRE?BLEA [id number] Nm adán JOYCE [address] [place] [address] OFFICE [facility] 2022-05-18 2022-05-18 Shayy [facility] 1.2.840.114 [id number] Univers 00:00:00 00:00:00 Ray HEALTH 350.1.13.10 it y of [place] 4.2.7.2.686 [place]an as DEONDRE?BLEA [id number] Nm adán MONROY[address] OFFICE [facility] 2022-05-17 2022-05-17 Outpatient [facility] [id number] Univers 13:00:00 13:58:[address] [facility] 2022-05-17 2022-05-17 Office [facility] 1.2.840.114 [id number] Univers 13:00:00 13:58:23 Visit Alina David SHEPHERD 350.1.13.10 i ty of [place] 4.2.7.2.[place] [id number] Nm dical NAL 059 [facility] 2022-05-16 2022-05-16 Outpatient R [facility] [id number] Univers 13:00:00 13:30:[address] [facility] 2022-05-16 2022-05-16 Office [facility] 1.2.840.114 [id number] Univers 13:00:00 13:30:41 Visit [facility] 350.1.13.10 it y of [place] 4.2.7.2.686 [place]an as DEONDRE?BLEA [id number] Nm dical KNEY 044 [facility] OFFICE [facility] 2022-05-16 2022-05-16 Outpatient R [facility] [id number] Univers 13:00:00 13:00:[address] [facility] 2022-05-13 2022-05-13 [employer] Supervisor Muna, Adc Lab Main [facility] 1.2.8 40.114 [id number] Univers 10:00:00 10:15:00 Visit Chintan Richards 350.1.13. 10 ity [facility] 4.2.7.2.[place] [id number] Nm dical NAL 353 [facility] 2022-05-13 2022-05-13 Outpatient R MAURICE [facility] [id number] Univers 10:00:00 10:00:[address] [facility] 2022-05-13 2022-05-13 Orders Doctor PEACE 1.2.840.114 [id number] Univers 00:00:00 00:00:00 Only Unassigned, DAY 350.1.13.10 ity of [place] [facility] 4.2.7.2.686 [place]an as [id number] [facility] [address] [place] 2022-05-12 2022-05-12 Shayy [facility] 1.2.840.114 [id number] Univers 00:00:00 00:00:00 [facility] 350.1.13.10 it y of [place] 4.2.7.2.686 Hernan as DEONDRE?BLEA [id number] [address] MEDICAL OFFICE BUILDING 2022-05-06 2022-05-06 Shayy [facility] 1.2.840.114 [id number] Univers 00:00:00 00:00:00 [facility] 350.1.13.10 it y of [place] 4.2.7.2.686 [place]an as DEONDRE?BLEA [id number] [address] MEDICAL OFFICE [facility] 2022-05-04 2022-05-04 Outpatient R MAURICE [facility] [id number] Univers 08:0127 08:00:[address] [facility] 2022-04-27 2022-04-27 Outpatient R MAURICE [facility] [id number] Univers 14:00:00 14:00:[address] [facility] 2022-04-27 2022-04-27 Outpatient Dominick RICHARDS [facility] [id number] Univers 14:00:00 14:00:[address] [facility] 2022-04-26 2022-04-26 Outpatient R BRADY CARDOZO [facility] [id number] Univers 08:15:00 10:00:45 ity of [facility] 2022-04-26 2022-04-26 Office Brady Cardozo [facility] 1.2.840.114 [id number] Univers 08:15:00 10:00:45 Visit R Y 350.1.13.10 it y of [facility] 4.2.7.2.686 Hernan as BANK [id number] [facility] BLDG. [address] 2022-04-26 2022-04-26 Outpatient BRADY SUÁREZ [facility] [id number] Univers 08:15:00 08:15:00 ity of [facility] 2022-04-26 2022-04-26 Outpatient R CARDOZOBRADY [facility] [id number] Univers 08:15:00 08:15:00 ity of [facility] 2022-04-26 2022-04-26 Orders Doctor NATA 1.2.840.114 [id number] Univers 00:00:00 00:00:00 Only Unassigned, DAY 350.1.13.10 ity of [place] [facility] 4.2.7.2.686 [place]an as [id number] [address] 2022-04-25 2022-04-25 Outpatient R MAURICE [facility] [id number] Univers 08:00:00 08:17:[address] [facility] 2022-04-25 2022-04-25 Refnena [facility] 1.2.840.114 [id number] Univers 00:00:00 00:00:00 Ray HEALTH 350.1.13.10 it y of [place] 4.2.7.2.686 Hernan as DEONDRE?BLEA [id number] [facility] [address] [place] MEDICAL OFFICE BUILDING 2022-04-22 2022-04-22 Outpatient R MAYRA [facility] [id number] Univers 13:30:00 14:32:42 ANNE-MARIE itarturo [facility] 2022-04-22 2022-04-22 Office [facility] 1.2.840.114 [id number] Univers 13:30:00 14:32:42 Visit [facility] 350.1.13.10 it y [facility] 4.2.7.2.686 Hernan as DEONDRE?BLEA [id number] [facility] [address] [place] MEDICAL OFFICE BUILDING 2022-04-22 2022-04-22 Orders Doctor NATA 1.2.840.114 [id number] Univers 00:00:00 00:00:00 Only Unassigned, DAY 350.1.13.10 ity of [place] [facility] 4.2.7.2.686 Hernan as [id number] [address] 2022-04-21 2022-04-21 [facility] 1.2.840.114 [id number] Univers 08:26:23 23:59:00 Encounter Chintan JianBradLon SHEPHERD 350.1.13.10 ity of [facility] 4.2.7.2.686 [facility] [id number] [facility] [address] [place] 2022-04-21 2022-04-21 [facility] 1.2.840.114 [id number] Univers 08:25:59 08:25:59 Encounter Tomil Adalid JOAO 350.1.13.10 ity of [facility] 4.2.7.2.686 [facility] [id number] [facility] [address] [place] 2022-04-21 2022-04-21 [facility] 1.2.840.114 [id number] Univers 08:25:35 08:25:35 Encounter Chintan Adalid JOAO 350.1.13.10 ity of [place] 4.2.7.2.686 [facility] [id number] [facility] [address] [place] 2022-04-21 2022-04-21 Outpatient R [facility] [id number] Univers 08:25:12 08:25:12 SENDIL ity of [facility] 2022-04-21 2022-04-21 [facility] 1.2.840.114 [id number] Univers 08:25:12 08:25:12 Encounter Chintan SHEPHERD 350.1.13.10 ity of [facility] 4.2.7.2.686 [facility] [id number] [facility] [address] [place] 2022-04-21 2022-04-21 Orders Doctor NATA 1.2.840.114 [id number] Univers 00:00:00 00:00:00 Only Unassigned, DAY 350.1.13.10 ity of [place] [facility] 4.2.7.2.686 [place]an as [id number] [facility] [address] 2022-04-20 2022-04-20 Shayy [facility] 1.2.840.114 [id number] Univers 00:00:00 00:00:00 [facility] 350.1.13.10 it y of [place] 4.2.7.2.686 Hernan as DEONDRE?BLEA [id number] Nm adán JOYCE 044 [facility] OFFICE [facility] 2022-04-15 2022-04-15 Telephone Venu TNOSMAR 1.2.850.723 [id number] Univers 00:00:00 00:00:00 [place] HEALTH 350.1.13.10 it y of [place] 4.2.7.2.686 Hernan as DEONDRE?BLEA [id number] Nm adán JOYCE 220 [facility] OFFICE [facility] 2022-04-15 2022-04-15 Orders Doctor NATA 1.2.840.114 [id number] Univers 00:00:00 00:00:00 Only Unassigned, DAY 350.1.13.10 ity of [place] [facility] 4.2.7.2.686 Hernan as [id number] [facility] [address] [place] 2022-04-12 2022-04-12 Out[facility] [id number] Univers 00:00:00 00:00:00 SENDIL [facility] 2022-04-12 2022-04-12 Outpatient [facility] [id number] Univers 00:00:00 00:00:00 SENDIL [facility] 2022-04-11 2022-04-11 Refnena [facility] 1.2.840.114 [id number] Univers 00:00:00 00:00:00 Ary HEALTH 350.1.13.10 it y of [place] 4.2.7.2.686 Hernan as DEONDRE?BLEA [id number] [facility] 044 [facility] 2022-04-08 2022-04-08 Telephone Brady Cardozo 1.2.840.11 [id number] Univers 00:00:00 00:00:00 R Y 350.1.13.10 it y of [place] 4.2.7.2.686 Hernan as BANK [id number] [facility] BLDG. [address] [place] 2022-04-05 2022-04-05 Refnena [facility] 1.2.840.114 [id number] Univers 00:00:00 00:00:00 Ray HEALTH 350.1.13.10 it y of [place] 4.2.7.2.686 Hernan as DEONDRE?BLEA [id number] Nm adán [facility] [address] [place] MEDICAL OFFICE BUILDING 2022-04-01 2022-04-01 Telephone MARGARITA Lea 1.2.066.786 [id number] Univers 00:00:00 00:00:00 [place] HEALTH 350.1.13.10 it y of [facility] 4.2.7.2.686 Hernan as DEONDRE?BLEA [id number] Nm adán [facility] [address] [place] MEDICAL OFFICE BUILDING 2022-03-31 2022-03-31 Outpatient R BRADY CARDOZO [facility] [id number] Univers 09:00:00 10:37:09 ity of [facility] 2022-03-31 2022-03-31 Office Brady Cardozo [facility] 1.2.840.114 [id number] Univers 09:00:00 10:37:09 Visit R Y 350.1.13.10 it y of [facility] 4.2.7.2.686 Hernan as BANK [id number] [facility] [address] [place] 2022-03-31 2022-03-31 Outpatient R BRADY CARDOZO [facility] [id number] Univers 09:00:00 09:00:00 ity of [facility] 2022-03-31 2022-03-31 Outpatient R BRADY CARDOZO [facility] [id number] Univers 09:00:00 09:00:00 ity of [facility] 2022-03-30 2022-03-30 Outpatient R BRADY CARDOZO [facility] OPH [id number] Univers 10:34:00 14:16:00 ity of [facility] 2022-03-30 2022-03-30 Hospital Brady Cardozo [facility] 1.2.840.114 [id number] Univers 10:34:00 14:16:00 Encounter R HEALTH 350.1.13.10 ity of [facility] 4.2.7.2.686 [place] [facility] [id number] [address] ([facility] 2022-03-29 2022-03-29 Outpatient R VENU [facility] [id number] Univers 16:00:00 16:00:00 WENTONG ity of [facility] 2022-03-29 2022-03-29 Orders Doctor NATA 1.2.840.114 [id number] Univers 00:00:00 00:00:00 Only Unassigned, DAY 350.1.13.10 ity of [facility] [id number] [place] [phone] [address] 2022-03-25 2022-03-25 [facility] [id number] Univers 10:30:00 11:06:[address] [facility] 2022-03-25 2022-03-25 [facility] 1.2.840.114 [id number] Univers 10:30:00 11:06:13 Visit Chintan SHEPHERD 350.1.13.10 ity [facility] 4[place]2.7.2.[place] [phone] Nm dicms NAL [address] [place] [address] 2022-03-25 2022-03-25 [facility] [id number] Univers 10:30:00 11:06:[address] [facility] 2022-03-25 2022-03-25 [facility] 1.2.840.114 [id number] Univers 10:30:00 11:06:13 Visit Chintan SHEPHERD 350.1.13.10 ity [facility] [id number] [id number] [address] 2022-03-25 2022-03-25 Outpatient R MAURICE [facility] [facility] [id number] Univers 10:30:00 11:06:[address] [facility] 2022-03-23 2022-03-23 Outpatient R [facility] [id number] Univers 09:00:00 11:04:[address] [facility] 2022-03-23 2022-03-23 Office [facility] 1.2.840.114 [id number] Univers 09:00:00 11:04:43 Visit Critical access hospital 350.1.13.10 it y of [place] 4.2.7.2.686 Hernan as DEONDRE?BLEA [phone] Nm adán JOYCE [address] MEDICAL OFFICE BUILDING 2022-03-23 2022-03-23 Outpatient R [facility] [id number] Univers 09:00:00 11:04:[address] [facility] 2022-03-23 2022-03-23 Refill [facility] 1.2.840.114 [id number] Univers 00:00:00 00:00:00 [facility] 350.1.13.10 it y of [place] 4.2.7.2.686 Hernan as DEONDRE?BLEA [id number] [facility] GAL [address] MEDICAL OFFICE [facility] 2022-03-23 2022-03-23 Orders Doctor NATA 1.2.840.114 [id number] Univers 00:00:00 00:00:00 Only Unassigned, DAY 350.1.13.10 ity of [place] [facility] 4.2.7.2.686 Hernan as [id number] [address] 2022-03-17 2022-03-17 Refill [facility] 1.2.840.114 [id number] Univers 00:00:00 00:00:00 Ary HEALTH 350.1.13.10 it y [facility] 4.2.7.2.686 Hernan as DEONDRE?BLEA [phone] Nm adán JOYCE [address] MEDICAL OFFICE [facility] 2022-03-14 2022-03-14 Office [facility] 1.2.840.114 [id number] Univers 14:00:00 14:50:05 Visit [facility] 350.1.13.10 it y of [place] 4.2.7.2.686 Hernan as DEONDRE?BLEA [id number] [address] MEDICAL OFFICE [facility] 2022-03-14 2022-03-14 Outpatient R VIKASH [facility] [id number] Univers 14:00:00 14:50:[address] [facility] 2022-03-14 2022-03-14 Outpatient Dominick [facility] [id number] Univers 14:00:00 14:00:00 RAY [facility] 2022-03-14 2022-03-14 [facility]patient [facility] [id number] Univers 12:15:00 12:15:[address] [facility] 2022-03-10 2022-03-10 Refill [facility] 1.2.840.114 [id number] Univers 00:00:00 00:00:00 [facility] 350.1.13.10 it y of [place] 4.2.7.2.686 Hernan as DEONDRE?BLEA [phone] Nm feliciano[address] MEDICAL OFFICE [facility] 2022-03-02 2022-03-02 Outpatient R [facility] RAD [id number] Univers 14:10:00 23:59:00 [facility] 2022-03-02 2022-03-02 Outpatient Dominick [facility] [id number] Univers 14:15:00 14:55:58 [facility] 2022-03-02 Outpatient Dominick [facility] [id number] Univers 14:15:00 14:55:58 [facility] 2022-03-02 2022-03-02 Office [facility] 1.2.840.114 [id number] Univers 14:15:00 14:30:00 Visit [facility] 350.1.13.10 it y of [place] 4.2.7.2.686 Hernan as DEONDRE?BLEA [phone] Nm adán JOYCE [address] MEDICAL OFFICE [facility] 2022-02-24 2022-02-24 Outpatient Dominick JARVIS [facility] [id number] Univers 15:00:00 15:00:[address] [facility] 2022-02-24 2022-02-24 Outpatient Dominick [facility] [id number] Univers 15:00:00 15:00:00 MARIA LUISA [facility] 2022-02-24 2022-02-24 Emergency X Jian ANGELES [facility] ERT [id number] Univers 11:54:00 14:17:[address] [facility] 2022-02-24 2022-02-24 Emergency Karthik, K [facility] 1.2.840.114 [id number] Univers 11:54:00 14:17:00 Jennifergopal [facility] 350.1.13.10 i ty of [place].2.7.2.[place] [id number] [facility] [address] 2022-02-24 2022-02-24 Shayy [facility] 1.2.840.114 [id number] Univers 00:00:00 00:00:00 [facility] 350.1.13.10 it y of [place] 4.2.7.2.686 Hernan as DEONDRE?BLEA [id number] [address] MEDICAL OFFICE BUILDING 2022-02-24 2022-02-24 Orders Doctor NATA 1.2.840.114 [id number] Univers 00:00:00 00:00:00 Only Unassigned, DAY 350.1.13.10 ity of [place] [facility] 4.2.7.2.686 Hernan as [id number] [facility] [address] 2022-02-23 2022-02-23 Outpatient [facility] [id number] Univers 14:00:00 14:00:00 [facility] 2022-02-23 2022-02-23 Outpatient [facility] [id number] Univers 14:00:00 14:00:00 [facility] 2022-02-23 2022-02-23 Shayy [facility] 1.2.840.114 [id number] Univers 00:00:00 00:00:00 [facility] 350.1.13.10 it y of [place] 4.2.7.2.686 Hernan as DEONDRE?BLEA [id number] [address] MEDICAL OFFICE [facility] 2022-02-14 2022-02-14 Shayy [facility] 1.2.840.114 [id number] Univers 00:00:00 00:00:00 Ray HEALTH 350.1.13.10 it y of [place] 4.2.7.2.686 Hernan as DEONDRE?BLEA [id number] [address] MEDICAL OFFICE [facility] 2022-01-25 2022-01-25 Outpatient R SIMONA, [facility] [id number] Univers 15:05:00 23:59:[address] [facility] 2022-01-25 2022-01-25 Outpatient R SIMONA, [facility] [id number] Univers 15:05:00 23:59:[address] [facility] 2022-01-25 2022-01-25 Outpatient R SIMONA, [facility] [id number] Univers 14:30:00 15:27:[address] [facility] 2022-01-25 2022-01-25 Outpatient R SIMONA, [facility] [id number] Univers 14:30:00 15:27:[address] [facility] 2022-01-25 2022-01-25 Office [facility] 1.2.840.114 [id number] Univers 14:30:00 15:27:06 Visit [facility] 350.1.13.10 it y of [place] 4.2.7.2.686 Hernan as DEONDRE?BLEA [phone] Nm adán JOYCE 198 [facility] OFFICE [facility] 2022-01-24 2022-01-24 Shayy [facility] 1.2.840.114 [id number] Univers 00:00:00 00:00:00 Ray HEALTH 350.1.13.10 it y of [place] 4.2.7.2.686 Hernan as DEONDRE?BLEA [phone] Nm adán JOYCE 044 [facility] 2022-01-23 2022-01-23 Shayy [facility] 1.2.840.114 [id number] Univers 00:00:00 00:00:00 Ray HEALTH 350.1.13.10 it y of [place] 4.2.7.2.686 Hernan as DEONDRE?BLEA [phone] Nm adán JOYCE 044 [facility] OFFICE [facility] 2022-01-20 2022-01-20 Outpatient Dominick NASH [facility] [id number] Univers 11:00:00 11:44:[address] [facility] 2022-01-20 2022-01-20 Office [facility] 1.2.840.114 [id number] Univers 11:00:00 11:44:03 Visit Anthony HEALTH 350.1.13.10 it y of [place] 4.2.7.2.686 Hernan as DEONDRE?BLEA [id number] Nm adán JOYCE [address] [place] MEDICAL OFFICE [facility] 2022-01-20 2022-01-20 Outpatient R CHARITY [facility] [id number] Univers 11:00:00 11:00:[address] [facility] 2022-01-20 2022-01-20 Telephone [facility] 1.2.302.792 [id number] Univers 00:00:00 00:00:00 Maria Luisa HEALTH 350.1.13.10 it y of [place] 4.2.7.2.686 Hernan as DEONDRE?BLEA [id number] Nm adán JOYCE [address] [place] MEDICAL OFFICE [facility] 2022-01-19 2022-01-19 Outpatient R [facility] [id number] Univers 12:00:00 13:00:20 DARRYN [facility] 2022-01-19 2022-01-19 Office [facility] 1.2.840.114 [id number] Univers 12:00:00 13:00:20 Visit Darryn [facility] 350.1.13.10 it y of [place] 4.2.7.2.686 Hernan as DEONDRE?BLEA [phone] Nm adán JOYCE [address] MEDICAL OFFICE [facility] 2022-01-19 2022-01-19 Outpatient R [facility] [id number] Univers 12:00:00 12:00:[address] [facility] 2022-01-19 2022-01-19 Outpatient R [facility] [id number] Univers 12:00:00 12:00:00 [facility] 2022-01-16 2022-01-16 Shayy Suh [facility] 1.2.840.114 [id number] Univers 00:00:00 00:00:00 Ray HEALTH 350.1.13.10 it y of [place] 4.2.7.2.686 Hernan as DEONDRE?BLEA [id number] [address] OFFICE [facility] 2022-01-13 2022-01-13 Emergency [facility] 1.2.403.880 [id number] Univers 20:22:00 23:24:00 Rebecca SHEPHERD 350.1.13.10 ity of [place].2.[place] [id number] [address] 2022-01-13 2022-01-13 Outpatient Dominick SUH, [facility] ERT [id number] Univers 13:15:00 13:36:55 [facility] 2022-01-13 2022-01-13 Office [facility] 1.2.840.114 [id number] Univers 13:15:00 13:36:55 Visit [facility] 350.1.13.10 it y [facility] 4.2.7.2.686 Hernan as DEONDRE?BLEA [id number] [address] 2022-01-13 2022-01-13 Outpatient Domin[facility] [id number] Univers 13:15:00 13:36:55 [facility] 2022-01-13 2022-01-13 Outpatient Dominick [facility] [id number] Univers 13:15:00 13:15:00 [facility] 2022-01-06 2022-01-06 Outpatient Dominick [facility] [id number] Univers 12:15:00 12:15:00 [facility] 2022-01-04 2022-01-04 Refill [facility] 1.2.840.114 [id number] Univers 00:00:00 00:00:00 [facility] 350.1.13.10 it y of [facility] 4.2.7.2.686 Hernan as DEONDRE?BLEA [id number] [address] 2021-12-30 2021-12-30 Telephone [facility] 1.2.840.114 [id number] Univers 00:00:00 00:00:00 Betiwillie SHEPHERD 350.1.13.10 ity of [place].7.2.[place] [phone] Nm dical NAL 204 [facility] 2021-12-30 2021-12-30 Telephone [facility]GALLUP [facility] 1.2.843.124 [id number] Univers 00:00:00 00:00:00 [facility] 350.1.13.10 it y of [place] 4.2.7.2.686 Hernan as DEONDRE?BLEA [phone] Nm dical KNEY [address] MEDICAL OFFICE [facility] 2021-12-29 2021-12-29 Telephone Brady Cardozo [facility] 1..840.11 4 [id number] Univers 00:00:00 00:00:00 R Y 350.1.13.10 it y of [facility] 4.2.7.2.686 Hernan as BANK [phone] [facility] BLDG. [address] 2021-12-28 2021-12-28 Outpatient R [facility] [id number] Univers 11:29:44 23:59:00 BETI khanarturo [facility] 2021-12-28 2021-12-28 [facility] [id number] Univers 11:29:44 23:59:00 BETI guidry o [facility] 2021-12-28 2021-12-28 [facility] 1.2.840.114 [id number] Univers 11:15:00 23:59:00 Encounter Beti SHEPHERD 350.1.13.10 ity of [place].2.[place] [phone] [facility] [address] 2021-12-22 2021-12-22 [employer] Supervisor 2, Adc Lab [facility] 1.2.840.114 [id number] Univers 14:30:00 14:45:00 Visit Beti Ny 350.1.13. 10 ity of [place].7.2.[place] [phone] Nm dical NAL 353 [facility] 2021-12-22 2021-12-22 Outpatient R [facility] [id number] Univers 13:30:00 14:11:43 BETI guidry o brian [facility] 2021-12-22 2021-12-22 Office Ny, [facility] 1..840.114 [id number] Univers 13:30:00 14:11:43 Visit Beti SHEPHERD 350.1.13.10 ity of [facility] 4.2.7.2.686 [place] E[place] [phone] Nm dical [address] 2021-12-22 2021-12-22 Outpatient R [facility] [id number] Univers 13:30:00 14:11:43 BETI zaidi [facility] 2021-12-21 2021-12-21 Shayy [facility] 1.2.840.114 [id number] Univers 00:00:00 00:00:00 [facility] 350.1.13.10 it y of [place] 4.2.7.2.686 Hernan as DEONDRE?BLEA [id number] [address] OFFICE [facility] 2021-12-20 2021-12-20 Outpatient [facility] [id number] Univers 10:30:00 10:30:00 BETI zaidi [facility] 2021-12-20 2021-12-20 [facility] [id number] Univers 10:30:00 10:30:00 BETI zaidi [facility] 2021-12-20 2021-12-20 Outpatient R [facility] [id number] Univers 10:30:00 10:30:00 BETI guidry o [facility] 2021-12-19 2021-12-19 Shayy [facility] 1.2.840.114 [id number] Univers 00:00:00 00:00:00 [facility] 350.1.13.10 it y of [facility] 4.2.7.2.686 Hernan as DEONDRE?BLEA [phone] Nm dic[address] OFFICE [facility] 2021-12-15 2021-12-15 Orders Doctor PEACE 1.2.840.114 [id number] Univers 00:00:00 00:00:00 Only Unassigned, DAY 350.1.13.10 ity of [place] [facility] 4.2.7.2.686 Hernan as [id number] [address] 2021-12-11 2021-12-11 Refill [facility] 1.2.840.114 [id number] Univers 00:00:00 00:00:00 Ray HEALTH 350.1.13.10 it y of [place] 4.2.7.2.686 Hernan as DEONDRE?BLEA [id number] [address] MEDICAL OFFICE [facility] 2021-12-09 2021-12-09 Office [facility] 1.2.840.114 [id number] Univers 12:00:00 12:15:00 Visit [facility] 350.1.13.10 it y of [place] 4.2.7.2.686 Hernan as DEONDRE?BLEA [id number] [address] OFFICE [facility] 2021-12-09 2021-12-09 Outpatient R [facility] [id number] Univers 12:00:00 12:00:[address] [facility] 2021-12-09 2021-12-09 Outpatient Dominick [facility] [id number] Univers 12:00:00 12:00:[address] [facility] 2021-12-09 2021-12-09 Outpatient Dominick [facility] [id number] Univers 12:00:00 12:00:00 [facility] 2021-12-07 2021-12-07 Orders Doctor PEACE 1.2.840.114 [id number] Univers 00:00:00 00:00:00 Only Unassigned, DAY 350.1.13.10 ity of [place] [facility] 4.2.7.2.686 Hernan as [phone] [address] 2021-12-06 2021-12-06 Telephone [facility] 1.2.413.242 [id number] Univers 00:00:00 00:00:00 Anne-Marie HEALTH 350.1.13.10 it y of [place] 4.2.7.2.686 Hernan as DEONDRE?BLEA [id number] Nm adán JOYCE [address] MEDICAL OFFICE BUILDING 2021-11-29 2021-11-29 Telephone Vikash [facility] 1.2.019.050 [id number] Univers 00:00:00 00:00:00 Ray HEALTH 350.1.13.10 it y of [facility] 4.2.7.2.686 Hernan as DEONDRE?BLEA [phone] Nm dicsallie JOYCE [address] [place] MEDICAL OFFICE [facility] 2021-11-22 2021-11-22 Refill [facility] 1.2.840.114 [id number] Univers 00:00:00 00:00:00 Ray HEALTH 350.1.13.10 it y of [facility] 4.2.7.2.686 Hernan as DEONDRE?BLEA [phone] Nm adán MONROY 044 [facility] OFFICE [facility] 2021-11-17 2021-11-17 Orders Doctor NATA 1.2.840.114 [id number] Univers 00:00:00 00:00:00 Only Unassigned, DAY 350.1.13.10 ity of [place] [facility] 4.2.7.2.686 Hernan as [id number] [facility] [address] 2021-11-16 2021-11-16 Outpatient R BRADY [facility]ARD[facility] [id number] Univers 15:15:00 17:31:02 ity of [facility] 2021-11-16 2021-11-16 Office Brady Cardozo [facility] 1.2.840.114 [id number] Univers 15:15:00 17:31:02 Visit R HEALTH 350.1.13.10 it y [place] [id number] [facility] [address] [place] 2021-11-16 2021-11-16 Outpatient R BRADY [facility] [id number] Univers 15:15:00 15:15:00 ity of [facility] 2021-11-16 2021-11-16 Telephone [facility] 1.2.928.210 [id number] Univers 00:00:00 00:00:00 Anne-Marie HEALTH 350.1.13.10 it y of [place] 4.2.7.2.686 Hernan as DEONDRE?BLEA [phone] Nm adán JOYCE 220 [facility] OFFICE BUILDING 2021-11-16 2021-11-16 Orders Doctor NATA 1.2.840.114 [id number] Univers 00:00:00 00:00:00 Only Unassigned, DAY 350.1.13.10 ity of [place] [facility] 4.2.7.2.686 Hernan as [id number] [address] 2021-11-15 2021-11-15 Telephone [facility] 1.2.769.230 [id number] Univers 00:00:00 00:00:00 Ray HEALTH 350.1.13.10 it y of [place] 4.2.7.2.686 Hernan as DEONDRE?BLEA [phone] [facility] 044 [facility] OFFICE [facility] 2021-11-11 2021-11-11 Refill [facility] 1.2.840.114 [id number] Univers 00:00:00 00:00:00 Ray HEALTH 350.1.13.10 it y of [facility] 4.2.7.2.686 Hernan as PROFESSIO [id number] [address] OFFICE [facility] 2021-11-11 2021-11-11 Orders Doctor NATA 1.2.840.114 [id number] Univers 00:00:00 00:00:00 Only Unassigned, DAY 350.1.13.10 ity of [place] [facility] 4.2.7.2.686 Hernan as [id number] [address] 2021-11-10 2021-11-10 Telephone [facility] 1.2.344.679 [id number] Univers 00:00:00 00:00:00 Ray HEALTH 350.1.13.10 it y of [place] 4.2.7.2.686 Hernan as DEONDRE?BLEA [id number] [address] OFFICE [facility] 2021-11-09 2021-11-09 Outpatient R MAYRA [facility] [id number] Univers 11:30:00 12:43:06 ANNE-MARIE [facility] 2021-11-09 2021-11-09 Outpatient R [facility]RA [facility] [id number] Univers 11:30:00 12:43:06 ANNE-MARIE guidry [facility] 2021-11-09 2021-11-09 Office [facility] 1.2.840.114 [id number] Univers 11:30:00 12:43:06 Visit [facility] HEALTH 350.1.13.10 it y of [place] 4.2.7.2.686 Hernan as DEONDRE?BLEA [id number] [address] OFFICE [facility] 2021-11-09 2021-11-09 Telephone [facility] 1.2.643.450 [id number] Univers 00:00:00 00:00:00 Anne-Marie HEALTH 350.1.13.10 it y of [place] 4.2.7.2.686 Hernan as DEONDRE?BLEA [phone] [facility] 220 [facility] OFFICE [facility] 2021-10-20 2021-10-20 Refnena [facility] 1.2.840.114 [id number] Univers 00:00:00 00:00:00 Ray HEALTH 350.1.13.10 it y of [place] 4.2.7.2.686 Hernan as DEONDRE?BLEA [id number] [address] OFFICE [facility] 2021-10-20 2021-10-20 Shayy [facility] 1.2.840.114 [id number] Univers 00:00:00 00:00:00 Ray HEALTH 350.1.13.10 it y of [place] 4.2.7.2.686 Hernan as PROFESSIO [id number] [address] OFFICE [facility] 2021-10-16 2021-10-16 Shayy [facility] 1.2.840.114 [id number] Univers 00:00:00 00:00:00 Ray HEALTH 350.1.13.10 it y of [place] 4.2.7.2.686 Hernan as PROFESSIO [id number] [address] OFFICE [facility] 2021-10-13 2021-10-13 Outpatient R YASH [facility] [id number] Univers 15:00:00 15:55:[address] [facility] [facility] 2021-10-13 2021-10-13 Office Berrios [facility] 1.2.840.114 [id number] Univers 15:00:00 15:55:16 Visit [facility] 350.1.13.10 it [place] [id number] [facility] [address] [place] 2021-10-11 2021-10-11 Outpatient Dominick SUH [facility] [id number] Univers 12:00:00 12:45:07 RAY [facility] 2021-10-11 2021-10-11 Telephone [facility] 1.2.447.206 [id number] Univers 00:00:00 00:00:00 [place] [facility] 350.1.13.10 it y of [place] 4.2.7.2.686 Hernan as DEONDRE?BLEA [phone] Nm dical KNEY [address] MEDICAL OFFICE BUILDING 2021-10-10 2021-10-10 Refill [facility] 1.2.840.114 [id number] Univers 00:00:00 00:00:00 Ray HEALTH 350.1.13.10 it y of [place] 4.2.7.2.686 Hernan as PROFESSIO [id number] [facility] [address] OFFICE BUILDING ONE 2021-10-08 2021-10-08 Orders Doctor NATA 1.2.840.114 [id number] Univers 00:00:00 00:00:00 Only Unassigned, DAY 350.1.13.10 ity of [place] [facility] 4.2.7.2.686 Hernan as [id number] [facility] [address] 2021-10-05 2021-10-05 Outpatient Dominick BERRIOS [facility] [id number] Univers 13:15:00 13:15:[address] [facility] 2021-09-30 2021-09-30 Outpatient Dominick NUNEZ [facility] [id number] Univers 13:15:00 13:30:00 [facility]-30 2021-09-30 [employer] Supervisor Muna Deja Lab Main [facility] 1.2.8 40.114 [id number] Univers 13:15:00 13:30:00 Visit Anne-Marie Nunze 350.1.13.10 ity of [facility] 4.2.7.2.[place] ROG[place] [phone] [facility] 353 [facility] 2021-09-30 2021-09-30 [facility] [id number] Univers 13:15:00 13:15:00 [facility] 2021-09-24 2021-09-24 [facility] [id number] Univers 13:15:00 13:15:00 [facility] 2021-09-24 2021-09-24 [facility] [id number] Univers 13:15:00 13:15:00 [facility] 2021-09-21 2021-09-21 [facility] [id number] Univers 09:00:00 11:31:54 [facility] 2021-09-18 2021-09-18 [facility] 1.2.840.114 [id number] Univers 00:00:00 00:00:00 Ray HEALTH [id number] it y of [place] 4.2.7.2.686 Hernan as DEONDRE?BLEA [phone] [facility] 044 [facility] OFFICE [facility] 2021-09-16 2021-09-16 Telephone [facility] [id number] Univers 00:00:00 00:00:00 Anne-Marie HEALTH [id number] it y of [place] 4.2.7.2.686 Hernan as DEONDRE?BLEA [phone] [facility] 220 [facility] OFFICE [facility] 2021-09-14 2021-09-14 Telephone [facility] [id number] Univers 00:00:00 00:00:00 [place] HEALTH [id number] it y of [place] 4.2.7.2.686 Hernan as DEONDRE?BLEA [phone] Nm adán JOYCE [address] [place] MEDICAL OFFICE BUILDING 2021-09-14 2021-09-14 Refill Vikash [facility] 1.2.840.114 [id number] Univers 00:00:00 00:00:00 Ray HEALTH [id number] it y of [place] [id number] Hernan as PROFESSIO [phone] [facility] [address] [place] OFFICE [facility] ONE 2021-09-14 2021-09-14 Orders Doctor NATA 1.2.840.114 [id number] Univers 00:00:00 00:00:00 Only Unassigned, DAY [id number] ity of [facility] 4.2.7.2.686 Hernan as [phone] [facility] [address] [place] 2021-09-08 2021-09-08 Outpatient R VIKASH [facility] [id number] Univers 14:30:00 15:14:48 [facility] 2021-09-08 2021-09-08 Office [facility] 1.2.840.114 [id number] Univers 14:30:00 15:14:48 Visit [facility] [id number] it y of [place] 4.2.7.2.686 Hernan as DEONDRE?BLEA [phone] Nm adán JOYCE 044 [facility] OFFICE [facility] 2021-08-27 2021-08-27 Outpatient R YASH [facility] [id number] Univers 14:30:00 15:26:[address] [facility] 2021-08-27 2021-08-27 Outpatient R [facility] [id number] Univers 14:30:00 15:26:[address] [facility] 2021-08-27 2021-08-27 Office [facility] 1.2.840.114 [id number] Univers 14:30:00 15:26:15 Visit [facility] 350.1.13.10 it y of [place].2.686 [place] [phone] [facility] [address] 2021-08-27 2021-08-27 Outpatient R [facility] [id number] Univers 14:30:00 14:30:[address] [facility] 2021-08-20 2021-08-20 Outpatient R [facility] [id number] Univers 14:45:00 15:18:[address] [facility] 2021-08-20 2021-08-20 Office Yash [facility] 1.2.840.114 [id number] Univers 14:45:00 15:18:56 Visit [facility] HEALTH 350.1.13.10 it y of [place] 4.[place].2.[place] [phone] [address] 2021-08-20 2021-08-20 Outpatient Dominick [facility] [id number] Univers 14:45:00 15:18:[address] [facility] 2021-08-20 2021-08-20 Outpatient Dominick [facility] [id number] Univers 14:45:00 14:45:[address] [facility] 2021-08-20 2021-08-20 Outpatient R [facility] [id number] Univers 14:45:00 14:45:[address] [facility] 2021-08-19 2021-08-19 Outpatient [facility] OPH [id number] Univers 11:18:00 13:35:[address] [facility] 2021-08-19 2021-08-19 [facility] 1.2.840.114 [id number] Univers 11:18:00 13:35:00 Encounter [employer] SPECIALTY 350.1.13.10 ity of CARE 4.2.7.2.686 [facility] AT [phone] [address] 2021-08-19 2021-08-19 Outpatient [facility] OPH [id number] Univers 11:18:00 13:35:[address] [facility] 2021-08-19 2021-08-19 Surgery [facility] 1.2.840.114 [id number] Univers 12:40:00 13:15:00 [employer] SPECIALTY 350.1.13.10 ity of CARE 4.2.7.2.686 [facility] AT [phone] Nm adán BLISS 020 [facility] 2021-08-19 2021-08-19 Orders Doctor NATA 1.2.840.114 [id number] Univers 00:00:00 00:00:00 Only Unassigned, DAY 350.1.13.10 ity of [place] [facility] 4.2.7.2.686 [place] as [phone] [facility] [address] 2021-08-17 2021-08-17 Laboratory Only, Adc Test [facility] 1.2.840. 114 [id number] Univers 15:15:00 15:30:00 Only Mariola Berrios 350.1.13.10 ity of [place] 4.2.7.2.686 [place] [facility] [phone] [facility] [address] 2021-08-17 2021-08-17 Outpatient R [facility] [id number] Univers 15:15:00 15:15:00 HUMAIR ity of [facility] 2021-08-16 2021-08-16 Telephone [facility] 1.2.743.264 [id number] Univers 00:00:00 00:00:00 Ray HEALTH 350.1.13.10 it y of [place] 4.2.7.2.686 [place] as DEONDRE?BLEA [phone] [facility] [address] MEDICAL OFFICE [facility] 2021-08-13 2021-08-13 Telephone Yash TNOSMAR 1.2.024.187 [id number] Univers 00:00:00 00:00:00 [facility] HEALTH 350.1.13.10 it y of EYE 4.2.7.2.686 [facility] [phone] [facility] [address] 2021-08-13 2021-08-13 Telephone [facility] 1.2.436.115 [id number] Univers 00:00:00 00:00:00 Ray HEALTH 350.1.13.10 it y of [place] 4.2.7.2.686 [place] as DEONDRE?BLEA [phone] [address] MEDICAL OFFICE [facility] 2021-08-12 2021-08-12 Office [facility] 1.2.840.114 [id number] Univers 12:00:00 12:15:00 Visit Ray HEALTH 350.1.13.10 it y of [facility] 4.2.7.2.686 [place] as DEONDRE?BLEA [phone] Me dical GALEY 044 [facility] 2021-08-12 2021-08-12 Outpatient R [facility] [id number] Univers 12:00:00 12:00:00 [facility] 2021-08-12 2021-08-12 [facility] [id number] Univers 12:00:00 12:00:00 [facility] 2021-08-12 2021-08-12 Orders Doctor NATA 1.2.840.114 [id number] Univers 00:00:00 00:00:00 Only Unassigned, DAY 350.1.13.10 ity of [place] [facility] 4.2.7.2.686 [place] as [phone] [address] 2021-08-07 2021-08-07 Refill [facility] 1.2.840.114 [id number] Univers 00:00:00 00:00:00 Ray HEALTH 350.1.13.10 it y of [place] 4.2.7.2.686 Hernan as PROFESSIO [phone] Nm dical TATE [address] [place] [address] OFFICE [facility] ONE 2021-08-03 2021-08-03 Orders Doctor NATA 1.2.840.114 [id number] Univers 00:00:00 00:00:00 Only Unassigned, DAY 350.1.13.10 ity of [place] [facility] 4.2.7.2.686 [place] as [phone] [address] 2021-07-28 2021-07-28 Scot Nunez [facility] 1.2.549.204 [id number] Univers 00:00:00 00:00:00 Anne-Marie HEALTH 350.1.13.10 it y of [facility] 4.2.7.2.686 [place] as DEONDRE?BLEA [phone] Me dical MARIA DEL CARMEN [address] MEDICAL OFFICE BUILDING 2021-07-22 2021-07-22 Telephone [facility] 1.2.025.612 [id number] Univers 00:00:00 00:00:00 Wentong HEALTH 350.1.13.10 it y of [place] 4.2.7.2.686 [place] as DEONDRE?BLEA [phone] Nm dicsallie KNEY 220 [facility] OFFICE BUILDING 2021-07-20 2021-07-20 Telephone [facility] 1.2.746.874 [id number] 0008 Univers 00:00:00 00:00:00 Wentmarion [employer] 350.1.13.10 it y of [place] 4.2.7.2.686 [place] as DEONDRE?BLEA [phone] Nm dicsallie HILARIA 220 [facility] OFFICE [facility] 2021-07-19 2021-07-19 Imm/Inj Nurse, Adc Pob Immunization [facility] 1.2.840.114 [id number] Univers 13:30:00 13:46:25 Visit Tony Lopez [place] 350.1.13 .10 ity of [place] 4.2.7.2.686 [place] [phone] Nm adán [facility] 421 [facility] 2021-07-19 2021-07-19 Outpatient R [facility]ALO [facility] [id number] Univers 13:30:00 13:30:[address] [facility] 2021-07-19 2021-07-19 Shayy Suh [facility] 1.2.840.114 [id number] Univers 00:00:00 00:00:00 Ray HEALTH 350.1.13.10 it y of [place] 4.2.7.2.686 [place] as PROFESSIO [phone] Nm dical NAL [address] OFFICE [facility] ONE 2021-07-16 2021-07-16 Scot Berrios [facility] 1.2.470.049 [id number] Univers 00:00:00 00:00:00 [employer] HEALTH 350.1.13.10 it y of [place] 4.2.[place].2.686 [place] C[place] [id number] [address] 2021-07-14 2021-07-14 Outpatient R [facility] [id number] Univers 14:00:00 15:20:[address] [facility] 2021-07-14 2021-07-14 Office [facility] 1.2.840.114 [id number] Univers 14:00:00 15:20:01 Visit [facility] HEALTH 350.1.13.10 it y of [place] 4.2.7.2.686 [place] [phone] [address] 2021-07-14 2021-07-14 Out[facility] [id number] Univers 14:00:00 14:00:[address] [facility] 2021-07-14 2021-07-14 Orders Doctor NATA 1.2.840.114 [id number] Univers 00:00:00 00:00:00 Only Unassigned, DAY 350.1.13.10 ity of [place] [facility] 4.2.7.2.686 [place] as [id number] [address] 2021-07-08 2021-07-08 Shayy [facility] 1.2.840.114 [id number] Univers 00:00:00 00:00:00 Ray HEALTH 350.1.13.10 it y of [place] 4.2.7.2.686 [place] as DEONDRE?BLEA [phone] [address] OFFICE BUILDING 2021-07-07 2021-07-07 Orders Doctor PEACE 1.2.840.114 [id number] Univers 00:00:00 00:00:00 Only Unassigned, DAY 350.1.13.10 ity of [place] [facility] 4.2.7.2.686 [place] as [phone] [address] 2021-06-26 2021-06-26 Refnena [facility] 1.2.840.114 [id number] Univers 00:00:00 00:00:00 Ángel HEALTH 350.1.13.10 it y of [place] 4.2.7.2.686 [place]an as PROFESSIO [phone] [address] OFFICE BUILDING ONE 2021-06-22 2021-06-22 Orders Doctor NATA 1.2.840.114 [id number] Univers 00:00:00 00:00:00 Only Unassigned, DAY 350.1.13.10 ity of [place] [facility] 4.2.7.2.686 [place] as [phone] [facility] [address] [place] 2021-06-18 2021-06-18 Office Mayra [facility] 1.2.840.114 [id number] Univers 10:34:44 11:38:52 Visit [facility] 350.1.13.10 it y of [place] 4.2.7.2.686 [place] as DEONDRE?BLEA [phone] [address] MEDICAL OFFICE [facility] 2021-06-18 2021-06-18 Outpatient R [facility] [id number] Univers 10:30:00 11:38:52 [facility] 2021-06-18 2021-06-18 Outpatient [facility] [id number] Univers 10:30:00 10:30:00 [facility] 2021-06-16 2021-06-16 Office [facility] 1.2.840.114 [id number] Univers 13:05:49 13:38:29 Visit [facility] 350.1.13.10 it y of [place] 4.2.7.2.686 [place] [phone] [address] 2021-06-16 2021-06-16 Outpatient R [facility] [id number] Univers 13:00:00 13:38:[address] 2021-06-16 2021-06-16 Outpatient Dominick [facility] [id number] Univers 13:00:00 13:00:[address] [facility] 2021-06-16 2021-06-16 Outpatient Dominick [facility] [id number] Univers 13:00:00 13:00:[address] 2021-06-10 2021-06-10 Office [facility] 1.2.840.114 [id number] Univers 13:06:01 13:26:23 Visit [facility] 350.1.13.10 it y of [place] 4.2.7.2.686 [place] as DEONDRE?BLEA [phone] [facility] [address] MEDICAL OFFICE [facility] 2021-06-10 2021-06-10 Outpatient R VIKASH [facility] [id number] Univers 13:00:00 13:26:[address] [facility] 2021-06-10 2021-06-10 Outpatient R [facility]ASH [facility] [id number] Univers 13:00:00 13:00:[address] [facility] 2021-06-09 2021-06-09 Outpatient R VENU [facility] [id number] Univers 12:00:00 13:19:48 [facility] 2021-06-09 2021-06-09 Office [facility] 1.2.840.114 [id number] Univers 11:55:27 13:19:48 Visit Critical access hospital 350.1.13.10 it y of [facility] 4.2.7.2.686 [place] as DEONDRE?BLEA [phone] [facility] 220 [facility] OFFICE [facility] 2021-06-09 2021-06-09 Telephone [facility] 1.2.753.858 [id number] Univers 00:00:00 00:00:00 Critical access hospital 350.1.13.10 it y of [place] 4.2.7.2.686 [place]an as DEONDRE?BLEA [phone] [facility] 044 [facility] OFFICE [facility] 2021-06-09 2021-06-09 Orders Doctor NATA 1.2.840.114 [id number] Univers 00:00:00 00:00:00 Only Unassigned, DAY 350.1.13.10 ity of [place] [facility] 4.2.7.2.686 [place] as [id number] [address] 2021-06-08 2021-06-08 Outpatient Dominick [facility] [id number] Univers 09:45:00 09:45:[address] [facility] 2021-06-04 2021-06-04 Office Paco [facility] 1.2.840.114 [id number] Univers 10:16:58 10:50:[address] [facility] MULTISPEC 350.1.13.10 ity of [place] IAY 4.2.7.2.686 [place] as CENTER [phone] [address] DIABETES CLINIC 2021-06-04 2021-06-04 Outpatient R [facility] [id number] Univers 10:00:00 10:50:[address] [facility] 2021-06-04 2021-06-04 Outpatient R [facility] [id number] Univers 10:00:00 10:50:[address] [facility] 2021-05-31 2021-05-31 Telephone [facility] 1.2.042.758 [id number] Univers 00:00:00 00:00:00 [facility] 350.1.13.10 it y of [place] 4.2.7.2.686 [place] as DEONDRE?BLEA [phone] [address] MEDICAL OFFICE [facility] 2021-05-31 2021-05-31 Telephone [facility] 1.2.841.283 [id number] Univers 00:00:00 00:00:00 Ray HEALTH 350.1.13.10 it y of [place] 4.2.7.2.686 [place] as DEONDRE?BLEA [phone] [address] OFFICE [facility] 2021-05-26 2021-05-26 Outpatient R [facility] [id number] Univers 13:15:00 13:15:[address] [facility] 2021-05-26 2021-05-26 Office [facility] 1.2.840.114 [id number] Univers 12:57:08 13:12:[address] [facility] 350.1.13.10 ity of [place] IALTY 4.2.7.2.686 [place] as CENTER [phone] [address] DIABETES CLINIC 2021-05-25 2021-05-25 Surgery [facility] 1.2.840.114 [id number] Univers 07:15:00 08:32:00 Aishat SPECIALTY 350.1.13.10 ity of [place] CARE 4.2.7.2.686 [place] as CENTER AT [phone] Nm dical VICTORY 020 [facility] 2021-05-25 2021-05-25 [facility] 1.2.525.859 [id number] Univers 06:02:00 08:01:00 Encounter Aishat SPECIALTY 350.1.13.10 ity of [place] CARE 4.2.7.2.686 [place] as CENTER AT [phone] Nm dical VICTORY 020 [facility] 2021-05-25 2021-05-25 Outpatient R [facility] OPH [id number] Univers 06:02:00 08:01:[address] [facility] 2021-05-25 2021-05-25 Telephone [facility] 1.2.840.114 [id number] Univers 00:00:00 00:00:00 Aishat Y 350.1.13.10 it y of [place].7.2.686 [place] [phone] [facility] BLDG. [address] 2021-05-21 2021-05-21 Laboratory Only, Adc Test [facility] 1.2.840. 114 [id number] Univers 15:37:15 15:52:15 Only Mignon Antonio [place] 350. 1.13.10 ity of [place] 4.2.7.2.686 [place] [phone] [facility] [address] 2021-05-21 2021-05-21 Office [facility] 1.2.840.114 [id number] Univers 10:24:08 11:49:06 Visit Aishat MULTISPEC 350.1.13.10 ity of [place] IALTY 4.2.7.2.686 [place] as CENTER [phone] [facility] AND [place] [address] DIABETES CLINIC 2021-05-21 2021-05-21 Outpatient R [facility] [id number] Univers 10:15:00 10:15:[address] [facility] 2021-05-19 2021-05-19 Outpatient R [facility] [id number] Univers 08:15:00 08:15:00 AISHAT ity of [facility] 2021-05-14 2021-05-14 Office [facility] 1.2.840.114 [id number] Univers 09:50:02 11:33:18 Visit Aishat MULTISPEC 350.1.13.10 ity of [facility] 4.2.7.2.686 [place] as CENTER [id number] [facility] AND [address] DIABETES CLINIC 2021-05-14 2021-05-14 Outpatient R [facility] [id number] Univers 10:15:00 10:15:[address] [facility] 2021-05-14 2021-05-14 Orders Doctor NATA 1.2.840.114 [id number] Univers 00:00:00 00:00:00 Only Unassigned, DAY 350.1.13.10 ity of [facility] 4.2.7.2.686 [place] [phone] [place] [address] [address] 2021-05-13 2021-05-13 Refnena [facility] 1.2.840.114 [id number] Univers 00:00:00 00:00:00 [facility] 350.1.13.10 it y of [place] 4.2.7.2.686 [place] as Professio [phone] Nm dical nal [address] [place] Office Building One 2021-05-12 2021-05-12 Outpatient R [facility] [id number] Univers 14:30:00 14:30:[address] [facility] 2021-05-12 2021-05-12 Refnena [facility] 1.2.840.114 [id number] Univers 00:00:00 00:00:00 [facility] 350.1.13.10 it y of [place] 4.2.7.2.686 [place] as Professio [phone] Nm dical nal [address] Office Building One 2021-05-11 2021-05-11 Emergency Francisco, Austyn TRAUMA 1.2.840.114 [id number] Univers 00:33:00 02:34:00 [facility] 350.1.13.10 it y of [place]2.[place].2.686 [place] [phone] [facility] [address] 2021-05-11 2021-05-11 Orders Doctor NATA 1.2.840.114 [id number] Univers 00:00:00 00:00:00 Only Unassigned, DAY 350.1.13.10 ity of [facility] 4.2.7.2.686 [place] as [phone] [facility] [address] 2021-05-10 2021-05-10 Emergency Jian Angeles [facility] 1.2.840.114 [id number] Univers 19:49:00 23:26:00 Jennifergopal Shepherd 350.1.13.10 i ty of [place] 4.2.7.2.686 [place] [phone] [facility] [address] 2021-05-10 2021-05-10 Emergency X Jian ANGELES [facility] ERT [id number] Univers 19:49:00 23:26:00 ity of [facility] 2021-05-10 2021-05-10 Refnena [facility] 1.2.840.114 [id number] Univers 00:00:00 00:00:00 [facility] 350.1.13.10 it y of [place] 4.2.7.2.686 [place] as Professio [phone] [place] [address] [address] Office Building One 2021-05-10 2021-05-10 Shayy [facility] 1.2.840.114 [id number] Univers 00:00:00 00:00:00 Ray Joao 350.1.13.10 i ty of [place] 4.2.7.2.686 [place] Profess[place] [phone] [facility] [address] [place] Building 2021-05-10 2021-05-10 Telephone JENSEN AntonioIT 1.2.840.114 [id number] Univers 00:00:00 00:00:00 Aishat Y 350.1.13.10 it y [facility] 4.2.7.2.686 [place] [phone] [facility] BLDG. [address] 2021-05-10 2021-05-10 Shayy Suh [facility] 1.2.840.114 [id number] Univers 00:00:00 00:00:00 [facility] 350.1.13.10 it y of [place] 4.2.7.2.686 [place] as Deondre?Blea [phone] Nm adán joyce [address] [place] [address] Medical Office Building 2021-05-10 2021-05-10 Nurse NATA Thomas 1.2.840.114 [id number] Univers 00:00:00 00:00:00 Triage Aneatrice DAY 350.1.13.10 ity of [facility] 4.2.7.2.686 [place] as [id number] [facility] [address] 2021-05-08 2021-05-08 Nurse NATA Erwin 1.2.242.686 [id number] Univers 00:00:00 00:00:00 Triage Antoine DAY 350.1.13.10 it y of [facility] 4.2.7.2.686 [place] as [id number] [address] 2021-05-07 2021-05-07 Office [facility] 1.2.840.114 [id number] Univers 08:47:19 09:32:24 Visit Aishat MULTISPEC 350.1.13.10 ity of [facility] 4.2.7.2.686 [place] as CENTER [id number] [facility] AND ARELLANO [address] DIABETES CLINIC 2021-05-07 2021-05-07 Outpatient R [facility] [id number] Univers 08:00:00 08:00:00 AISHAT ity of [facility] 2021-05-06 2021-05-06 Surgery [facility] 1.2.840.114 [id number] Univers 13:34:00 14:10:00 Aishat SPECIALTY 350.1.13.10 ity of [facility] 4.2.7.2.686 [place] as CENTER AT [phone] Nm adán BLISS 020 [facility] 2021-05-06 2021-05-06 [facility] 1.2.447.728 [id number] Univers 10:22:00 13:22:00 Encounter Aishat SPECIALTY 350.1.13.10 ity of [place] [facility] 4.2.7.2.686 [place] as CENTER AT [phone] Nm felicianoal VICTORY 020 [facility] 2021-05-06 2021-05-06 Orders Doctor NATA 1.2.840.114 [id number] Univers 00:00:00 00:00:00 Only Unassigned, DAY 350.1.13.10 ity of [place] [facility] 4.2.7.2.686 [place] as [phone] [facility] [address] [place] 2021-05-05 2021-05-05 Laboratory Only, Adc Test [facility] 1.2.840. 114 [id number] Univers 11:00:31 11:15:31 Only Paco, Aishat [place] 350. 1.13.10 ity of [place] 4.2.7.2.686 [place] [facility] [id number] [facility] [address] [place] 2021-05-05 2021-05-05 Outpatient R [facility] [id number] Univers 10:45:00 10:45:00 AISHAT ity of [facility] 2021-05-05 2021-05-05 Orders Doctor NTAA 1.2.840.114 [id number] Univers 00:00:00 00:00:00 Only Unassigned, DAY 350.1.13.10 ity of [place] [facility] 4.2.7.2.686 [place] as [phone] [facility] [address] [place] 2021-05-02 2021-05-02 Refill [facility] 1.2.840.114 [id number] Univers 00:00:00 00:00:00 [facility] 350.1.13.10 it y of [place] 4.2.7.2.686 [place] as Professio [phone] Nm adán ybarra [address] Office [facility] One 2021-04-28 2021-04-28 Scot Suh [facility] 1.2.413.628 [id number] Univers 00:00:00 00:00:00 [facility] 350.1.13.10 it y of [place] 4.2.7.2.686 [place] as Deondre?Blea [phone] Nm adán [facility] [address] [place] Medical Office Building 2021-04-16 2021-04-16 Outpatient R [facility] [id number] Univers 13:45:00 15:24:04 AISHAT ity of [facility] 2021-04-16 2021-04-16 Outpatient R [facility] [id number] Univers 13:45:00 15:24:04 AISHAT ity of [facility] 2021-04-16 2021-04-16 Office [facility] 1.2.840.114 [id number] Univers 13:31:43 15:24:04 [facility] 350.1.13.10 ity of [place] IALTY 4.2.7.2.686 [place] as CENTER [id number] [facility] AND [address] DIABETES CLINIC 2021-04-16 2021-04-16 Outpatient R [facility] [id number] Univers 13:45:00 13:45:00 AIST ity of [facility] 2021-04-16 2021-04-16 Telephone [facility] 1.2.550.150 [id number] Univers 00:00:00 00:00:00 [facility] 350.1.13.10 it y of [place] 4.2.7.2.686 [place] as Deondre?Blea [phone] Nm adán galhilaria [address] [place] Medical Office Building 2021-04-16 2021-04-16 Orders Doctor PEACE 1.2.840.114 [id number] Univers 00:00:00 00:00:00 Only Unassigned, DAY 350.1.13.10 ity of [facility] 4.2.7.2.686 Hernan as [phone] [place] [address] [address] 2021-04-14 2021-04-14 Orders Doctor [facility] 1.2.840.114 [id number] Univers 00:00:00 00:00:00 Only Unassigned, DAY 350.1.13.10 ity of [facility] 4.2.7.2.686 Hernan as [phone] [address] 2021-04-12 2021-04-12 [facility] 1.2.840.114 [id number] Univers 12:34:10 12:49:10 Visit [facility] 350.1.13.10 it y of [place] 4.2.7.2.686 Hernan as Deondre?Blea [phone] [address] Medical [facility] Building 2021-04-12 2021-04-12 Outpatient R [facility] [id number] Univers 12:30:00 12:30:[address] [facility] 2021-04-08 2021-04-08 [facility] 1.2.840.114 [id number] Univers 00:00:00 00:00:00 [facility] 350.1.13.10 it y of [place] 4.2.7.2.686 Henran as Deondre?Blea [phone] [address] Office [facility] 2021-04-07 2021-04-07 Orders Doctor NATA 1.2.840.114 [id number] Univers 00:00:00 00:00:00 Only Unassigned, DAY 350.1.13.10 ity of [facility] 4.2.7.2.686 Hernan as [phone] [address] 2021-04-06 2021-04-06 [facility] 1.2.840.114 [id number] Univers 00:00:00 00:00:00 [facility] 350.1.13.10 it y of [place] 4.2.7.2.686 Hernan as Professio [phone] [address] Office [facility] 2021-04-06 2021-04-06 [facility] 1.2.840.114 [id number] Univers 00:00:00 00:00:00 [facility] 350.1.13.10 it y of [place] 4.2.7.2.686 Hernan as Professio [phone] [facility] nal [address] [place] [address] Office [facility] One 2021-04-05 2021-04-05 Orders Doctor NATA 1.2.840.114 [id number] Univers 00:00:00 00:00:00 Only Unassigned, DAY 350.1.13.10 ity of [place] [facility] 4.2.7.2.686 Hernan as [phone] [address] 2021-04-03 2021-04-03 Orders Doctor NATA 1.2.840.114 [id number] Univers 00:00:00 00:00:00 Only Unassigned, DAY 350.1.13.10 ity of [place] [facility] 4.2.7.2.686 Hernan as [phone] [address] 2021-03-30 2021-03-30 Orders Doctor NATA 1.2.840.114 [id number] Univers 00:00:00 00:00:00 Only Unassigned, DAY 350.1.13.10 ity of [place] [facility] 4.2.7.2.686 Hernan as [phone] [address] 2021-03-29 2021-03-29 Orders Doctor PEACE 1.2.840.114 [id number] Univers 00:00:00 00:00:00 Only Unassigned, DAY 350.1.13.10 ity of [place] [facility] 4.2.7.2.686 [place]an as [phone] [address] 2021-03-29 2021-03-29 Orders Doctor PEACE 1.2.840.114 [id number] Univers 00:00:00 00:00:00 Only Unassigned, DAY 350.1.13.10 ity of [place] [facility] 4.2.7.2.686 [place] as [phone] [address] 2021-03-24 2021-03-24 Letter MARGARITA Suh 1.2.840.114 [id number] Univers 00:00:00 00:00:00 (Out) Ray [facility] 350.1.13.10 it y of [place] 4.2.7.2.686 Hernan as Deondre?Blea [phone] [address] Medical Office Building 2021-03-24 2021-03-24 Telephone MARGARITA Suh 1.2.652.590 [id number] Univers 00:00:00 00:00:00 [facility] 350.1.13.10 it y of [place] 4.2.7.2.686 Hernan as Deondre?Blea [phone] Nm adán joyce [address] Medical Office Building 2021-03-23 2021-03-23 Office [facility] 1.2.840.114 [id number] Univers 10:10:52 11:17:06 Visit [facility] 350.1.13.10 it y of [place] 4.2.7.2.686 Hernan as Deondre?Blea [phone] Nm adán joyce 220 [facility] Office Building 2021-03-23 2021-03-23 Outpatient R [facility] [id number] Univers 10:00:00 10:00:00 ANNE-MARIE ity of [facility] 2021-03-23 2021-03-23 Telephone [facility] 1.2.752.064 [id number] Univers 00:00:00 00:00:00 [facility] 350.1.13.10 it y of [place] 4.2.7.2.686 Hernan as Deondre?Blea [phone] Nm adán joyce 220 [facility] Office Building 2021-03-16 2021-03-16 Orders Doctor PEACE 1.2.840.114 [id number] Univers 00:00:00 00:00:00 Only Unassigned, DAY 350.1.13.10 ity of [place] [facility] 4.2.7.2.686 [place] as [phone] [address] 2021-03-16 2021-03-16 [facility]phone [facility] 1.2.127.930 [id number] Univers 00:00:00 00:00:00 [facility] 350.1.13.10 it y of [place] 4.2.7.2.686 [place]an as Professio [phone] Nm adán ybarra [address] Office Building One 2021-03-16 2021-03-16 Orders Doctor NATA 1.2.840.114 [id number] 29 Univers 00:00:00 00:00:00 Only Unassigned, DAY 350.1.13.10 ity of [facility] 4.2.7.2.686 [place] as [phone] [address] 2021-03-10 2021-03-10 Refill [facility] 1.2.840.114 [id number] Univers 00:00:00 00:00:00 [facility] 350.1.13.10 it y of [place] 4.2.7.2.686 [place]an as Professio [phone] [facility] [address] Office Building One 2021-03-04 2021-03-04 Telephone [facility] 1.2.325.526 [id number] Univers 00:00:00 00:00:00 Wentong [place] 350.1.13.10 i [place] [phone] [facility] 220 [facility] 2021-03-03 2021-03-03 Refill [facility] 1.2.840.114 [id number] 88 Univers 00:00:00 00:00:00 [facility] 350.1.13.10 it y of [place] 4.2.7.2.686 [place]an as Professio [phone] [facility] nal [address] Office [facility] One 2021-02-14 2021-02-14 Refill [facility] 1.2.840.114 [id number] Univers 00:00:00 00:00:00 [facility] 350.1.13.10 it y of [place] 4.2.7.2.686 [place] as Professio [phone] [facility] [address] Office [facility] 2021-02-10 2021-02-10 Office [facility] 1.2.840.114 [id number] Univers 13:15:25 13:30:25 Visit [facility] 350.1.13.10 it y of [place] 4.2.7.2.686 [place]an as Professio [phone] [facility] nal [address] Office [facility] 2021-02-10 2021-02-10 Outpatient R VIKASH [facility] [id number] Univers 13:00:00 13:00:00 RAY guidry of [facility] 2021-02-10 2021-02-10 Orders Doctor NATA 1.2.840.114 [id number] Univers 00:00:00 00:00:00 Only Unassigned, DAY 350.1.13.10 ity of [place] [facility] 4.2.7.2.686 Hernan as [phone] [facility] [address] 2021-02-10 2021-02-10 Telephone [facility] 1.2.362.378 [id number] Univers 00:00:00 00:00:00 Wentong [place] 350.1.13.10 i [place].7.2.[place] [phone] [facility] 220 [facility] 2021-02-08 2021-02-08 Refnena [facility] 1.2.840.114 [id number] 21 Univers 00:00:00 00:00:00 [facility] 350.1.13.10 it y of [place] 4.2.7.2.686 [place]an as Professio [phone] Nm dicms nal [address] Office Building One 2021-02-04 2021-02-04 Orders Doctor NATA 1.2.840.114 [id number] 48 Univers 00:00:00 00:00:00 Only Unassigned, DAY 350.1.13.10 ity of [place] [facility] 4.2.7.2.686 Hernan as [phone] [facility] [address] [place] 2021-01-21 2021-01-21 Shayy [facility] 1.2.840.114 [id number] Univers 00:00:00 00:00:00 [facility] 350.1.13.10 it y of [place] 4.2.7.2.686 [place]an as Professio [phone] Nm dical nal [address] Office [facility] One 2021-01-07 2021-01-07 Shayy [facility] 1.2.840.114 [id number] Univers 00:00:00 00:00:00 [facility] 350.1.13.10 it y of [place] 4.2.7.2.686 [place]an as Professio [phone] Me dical nal 044 [facility] One 2020-12-29 2020-12-29 Office Venu [facility] 1.2.840.114 [id number] 64 Univers 16:04:37 16:54:10 Visit Darryn Marston 350.1.13.10 i [place]2.7.2.[place] [phone] [facility] 220 [facility] 2020-12-29 2020-12-29 Outpatient R [facility]U [facility] [id number] Univers 16:00:00 16:54:10 [facility] 2020-12-29 2020-12-29 Outpatient R [facility] [id number] Univers 16:00:00 16:00:00 [facility] 2020-12-29 2020-12-29 Telephone [facility] 1.2.063.151 [id number] Univers 00:00:00 00:00:00 [facility] 350.1.13.10 it y of [place] 4.2.7.2.686 [place] as Professio [phone] [address] One 2020-12-29 2020-12-29 Orders Doctor NATA 1.2.840.114 [id number] Univers 00:00:00 00:00:00 Only Unassigned, DAY 350.1.13.10 ity of [place] [facility] 4.2.7.2.686 [place]an as [phone] [address] 2020-12-22 2020-12-22 Telephone [facility] 1.2.380.577 [id number] Univers 00:00:00 00:00:00 [facility] 350.1.13.10 it y of [place] 4.2.7.2.686 [place]an as Professio [phone] [address] 2020-12-21 2020-12-21 Outpatient R VIKASH [facility] [id number] Univers 12:00:00 12:00:00 [facility] 2020-12-16 2020-12-16 [facility] 1.2.553.517 [id number] Univers 09:30:00 23:59:00 Encounter Layne Victor HEALTH 350.1.13.10 ity of [place] 4.2.7.2.686 [facility] [phone] [facility] Primary & [address] [facility] 2020-12-16 2020-12-16 Outpatient R DEANN [facility] [id number] Univers 09:30:00 23:59:00 LAYNE ity of [facility] 2020-12-16 2020-12-16 Office Zacarias, [facility] 1.2.840.114 [id number] Univers 14:47:01 15:02:01 Visit Layne Victor HEALTH 350.1.13.10 it y of [place] 4.2.7.2.686 [facility] [phone] [facility] & [address] [facility] 2020-12-16 2020-12-16 [facility]patient [facility] [id number] Univers 14:30:00 14:30:00 LAYNE ity of [facility] 2020-12-14 2020-12-14 Office [facility] 1.2.840.114 [id number] Univers 14:10:35 14:40:35 Visit [facility] 350.1.13.10 it y of [place] 4.2.7.2.686 [place]an as Professio [phone] [facility] nal [address] [place] [address] Office Building One 2020-12-14 2020-12-14 Outpatient R SUH [facility] [id number] Univers 14:30:00 14:30:00 RAY ity of [facility] 2020-12-09 2020-12-09 Refill Doctor [facility] 1.2.840.114 [id number] Univers 00:00:00 00:00:00 Unassigned, Health 350.1.13.10 ity of [place] 4.2.7.2.686 [place] as Professio [phone] Nm dical nal [address] Office Building One 2020-12-09 2020-12-09 Refill Vikash [facility] 1.2.840.114 [id number] Univers 00:00:00 00:00:00 [facility] 350.1.13.10 it y of [place] 4.2.7.2.686 [place] as Professio [phone] Nm dical nal [address] Office Building One 2020-12-08 2020-12-08 Outpatient R [facility] [id number] Univers 10:00:00 10:00:00 LAYNE ity of [facility] 2020-12-08 2020-12-08 Outpatient R [facility] [id number] Univers 10:00:00 10:00:[address] [facility] 2020-12-07 2020-12-07 [facility] 1.2.702.919 [id number] Univers 00:00:00 00:00:00 Layne A HEALTH 350.1.13.10 it y of [place] 4.2.7.2.686 [facility] [phone] [facility] [address] [facility] 2020-11-27 2020-11-27 Patient Doctor NATA 1.2.840.114 [id number] 00:00:00 00:00:00 Secure Msg Unassigned, DAY 350.1.13.10 [place] [facility] 4.2.7.2.686 [id number] 019 2020-11-27 2020-11-27 Patient Doctor NATA 1.2.840.114 [id number] Univers 00:00:00 00:00:00 Secure Msg Unassigned, DAY 350.1.13.10 ity of [place] [facility] 4.2.7.2.686 [place] as [phone] [facility] [address] 2020-11-26 2020-11-26 [facility] 1.2.761.547 [id number] 15:00:00 23:59:00 Encounter Jovanni [place] 350.1.13.10 [place] 4.2.7.2.686 [place] [id number] 806 2020-11-26 2020-11-26 [facility] 1.2.329.787 [id number] Univers 15:00:00 23:59:00 Encounter Jovanni [place] 350.1.13.10 ity of [place] 4.2.7.2.686 [facility] [phone] [address] 2020-11-26 2020-11-26 Outpatient R [facility] [id number] Univers 15:30:00 15:30:00 JOVANNI ity of [facility] 2020-11-26 2020-11-26 [employer] Deja Toro Lab Main [facility] 1.2.8 40.114 [id number] Univers 15:08:01 15:23:01 Visit Jose Rafaelhola Jovanni Shepherd 350.1.13.10 ity of [place].2.[place] [phone] Nm dical nal 353 [facility] 2020-11-26 2020-11-26 [employer] Supervisor Muna [facility] 1.2.840.114 [id number] 15:08:01 15:23:01 Visit Lab Main [place] 350.1.13.10 [place] 4.2.7.2.686 Professio [phone] [facility] 353 [facility] 2020-11-26 2020-11-26 Orders Doctor NATA 1.2.840.114 [id number] Univers 00:00:00 00:00:00 Only Unassigned, DAY 350.1.13.10 ity of [place] [facility] 4.2.7.2.686 [place] as [phone] [facility] [address] 2020-11-24 2020-11-24 Outpatient R [facility] [id number] Univers 19:00:00 19:00:00 ity of [facility] 2020-11-24 2020-11-24 Urgent Provider, [facility] 1.2.840.114 [id number] Univers 16:48:23 17:08:23 Care Nata Wong [facility] 350.1.13.10 ity of [place] 4.2.7.2.686 [place] as Professio [phone] [facility] [address] [place] Office Building One 2020-11-19 2020-11-19 Office [facility] 1.2.840.114 [id number] Univers 16:06:46 17:02:[address] [facility] [place] 350.1.13.10 [place]2.7.2.[place] [phone] Nm dical nal 204 [facility] 2020-11-19 2020-11-19 Outpatient R PERRY [facility] [id number] Univers 16:00:00 17:02:[address] [facility] 2020-11-19 2020-11-19 Outpatient R PERRY [facility] [id number] Univers 16:00:00 16:00:[address] [facility] 2020-11-19 2020-11-19 Orders Doctor NATA 1.2.840.114 [id number] Univers 00:00:00 00:00:00 Only Unassigned, DAY 350.1.13.10 ity of [place] [facility] 4.2.7.2.686 [place] as [phone] [address] 2020-11-17 2020-11-17 Refnena [facility] 1.2.840.114 [id number] Univers 00:00:00 00:00:00 [facility] 350.1.13.10 it y of [place] 4.2.7.2.686 [place] as Professio [phone] Nm dical nal 044 [facility] One 2020-11-10 2020-11-10 Refnena [facility] 1.2.840.114 [id number] Univers 00:00:00 00:00:00 [facility] 350.1.13.10 it y of [place] 4.2.7.2.686 [place] as Professio [phone] Nm dical nal 044 [facility] One 2020-11-09 2020-11-09 Refnena [facility] 1.2.840.114 [id number] Univers 00:00:00 00:00:00 [facility] 350.1.13.10 it y of [place] 4.2.7.2.686 [place] as Professio [phone] Nm dical nal 044 [facility] One 2020-11-09 2020-11-09 Scot [facility] 1.2.552.508 [id number] Univers 00:00:00 00:00:00 Wentong [place] 350.1.13.10 i ty [place] 4.2.7.2.[place] [phone] Nm dical nal [address] Building 2020-11-06 2020-11-06 Orders Doctor NATA 1.2.840.114 [id number] Univers 00:00:00 00:00:00 Only Unassigned, DAY 350.1.13.10 ity of [place] [facility] 4.2.7.2.686 [place] as [phone] [address] 2020-10-28 2020-10-28 Orders Doctor NATA 1.2.840.114 [id number] Univers 00:00:00 00:00:00 Only Unassigned, DAY 350.1.13.10 ity of [place] [facility] 4.2.7.2.686 [place] as [phone] [address] 2020-10-22 2020-10-22 Telephone Venu [facility] 1.2.917.021 [id number] Univers 00:00:00 00:00:00 Wentong MULTISPEC 350.1.13.10 ity of [place].2.[place] [phone] [facility] [place] [address] [facility] 2020-10-19 2020-10-19 Office Vikash [facility] 1.2.840.114 [id number] Univers 13:10:17 13:25:17 Visit [facility] 350.1.13.10 it y of [place] 4.2.7.2.686 [place] as Professio [phone] [facility] [address] Office Building One 2020-10-19 2020-10-19 Outpatient R VIKASH [facility] [id number] Univers 13:15:00 13:15:00 RAY ity of [facility] 2020-10-19 2020-10-19 Orders Doctor NATA 1.2.840.114 [id number] Univers 00:00:00 00:00:00 Only Unassigned, DAY 350.1.13.10 ity of [place] [facility] 4.2.7.2.686 [place] as [phone] [address] 2020-10-07 2020-10-07 Refill Vikash [facility] 1.2.840.114 [id number] Univers 00:00:00 00:00:00 [facility] 350.1.13.10 it y of [place] 4.2.7.2.686 [place] as Professio [phone] [facility] [address] Office Building One 2020-10-01 2020-10-01 Urgent Provider, [facility] 1.2.840.114 [id number] Univers 10:29:39 10:49:39 Care Falguni Zamorano [facility] 350.1.13.10 ity of [place] 4.2.7.2.686 [place] as Professio [phone] [facility] [address] Office Building One 2020-10-01 2020-10-01 Outpatient R [facility] [id number] Univers 10:40:00 10:40:00 ity of [facility] 2020-09-09 2020-09-09 Office [facility] 1.2.840.114 [id number] Univers 11:03:17 12:03:50 Visit [facility] 350.1.13.10 i ty of [place] 4.2.7.2.[place] [phone] [facility] 220 [facility] 2020-09-09 2020-09-09 Outpatient R VENU [facility] [id number] Univers 11:00:00 11:00:00 WENTONG ity of [facility] 2020-09-09 2020-09-09 Refill Vikash [facility] 1.2.840.114 [id number] Univers 00:00:00 00:00:00 [facility] 350.1.13.10 it y of [place] 4.2.7.2.686 [place] Professio [phone] [facility] [address] Office Building One 2020-09-09 2020-09-09 Orders Doctor NATA 1.2.840.114 [id number] Univers 00:00:00 00:00:00 Only Unassigned, DAY 350.1.13.10 ity of [place] [facility] 4.2.7.2.686 [place] as [phone] [address] 2020-09-02 2020-09-02 Refnena Suh [facility] 1.2.840.114 [id number] Univers 00:00:00 00:00:00 Ray [facility] 350.1.13.10 it y of [place] 4.2.7.2.686 [place] as Professio [phone] [facility] [address] Office Building One 2020-08-31 2020-08-31 Outpatient R СЕРГЕЙ [facility] [id number] Univers 08:50:00 08:50:[address] [facility] 2020-08-26 2020-08-26 [employer] Supervisor 2, Adc Lab [facility] 1.2.840.114 [id number] Univers 13:27:35 13:42:35 Visit Darryn Lea 350.1.13.10 ity of [place].2.[place] [phone] [facility] 353 [facility] 2020-08-26 2020-08-26 Office [facility] 1.2.840.114 [id number] Univers 10:10:41 12:54:04 Visit Darryn Shephred 350.1.13.10 i [place] 4[place]2.7.2.[place] [phone] [facility] 220 [facility] 2020-08-26 2020-08-26 Outpatient R [facility]U [facility] [id number] Univers 10:00:00 10:00:00 [facility] 2020-08-26 2020-08-26 Refnena Suh [facility] 1.2.840.114 [id number] Univers 00:00:00 00:00:00 Ray Shepherd 350.1.13.10 i ty [place].2.[place] [phone] [facility] 044 [facility] 2020-08-26 2020-08-26 Orders Doctor PEACE 1.2.840.114 [id number] Univers 00:00:00 00:00:00 Only Unassigned, DAY 350.1.13.10 ity of [place] [facility] 4.2.7.2.686 [place] as [phone] [address] 2020-08-24 2020-08-24 Telephone [facility] 1.2.096.338 [id number] Univers 00:00:00 00:00:00 [facility] 350.1.13.10 it y of [place] 4.2.7.2.686 [place] as Professio [phone] [facility] 044 [facility] One 2020-08-14 2020-08-14 Refnena [facility] 1.2.840.114 [id number] Univers 00:00:00 00:00:00 [facility] 350.1.13.10 it y of [place] 4.2.7.2.686 [place] Professio [phone] [facility] 044 [facility] One 2020-08-12 2020-08-12 Telephone [facility] 1.2.627.334 [id number] Univers 00:00:00 00:00:00 Wentong [place] 350.1.13.10 i [place]2.[place].2.[place] [phone] [facility] 220 [facility] 2020-08-12 2020-08-12 Orders Doctor NATA 1.2.840.114 [id number] Univers 00:00:00 00:00:00 Only Unassigned, DAY 350.1.13.10 ity of [place] [facility] 4.2.7.2.686 [place] as [phone] [address] 2020-08-10 2020-08-10 [facility] 1.2.840.114 [id number] Univers 00:00:00 00:00:00 [facility] 350.1.13.10 it y of [place] 4.2.7.2.686 [place] Professio [phone] [facility] 044 [facility] One 2020-08-03 2020-08-03 Outpatient R СЕРГЕЙ [facility] [id number] Univers 15:40:00 15:40:00 MEREDITH ity of [facility] 2020-08-03 2020-08-03 Office [facility] 1.2.840.114 [id number] Univers 12:09:59 12:24:59 Visit [facility] 350.1.13.10 it y of [place] 4.2.7.2.686 [place] Professio [phone] [address] One 2020-08-03 2020-08-03 [facility] [id number] Univers 12:00:00 12:00:00 [facility] 2020-07-28 2020-07-28 Outpatient [facility] [id number] Univers 15:00:00 [facility]:00[facility]-07-21 2020-07-21 Refnena [facility] 1.2.840.114 [id number] Univers 00:00:00 00:00:00 [facility] 350.1.13.10 it y of [place] 4.2.7.2.686 [place] as Professio [phone] [address] 2020-07-16 2020-07-16 [facility] 1.2.840.114 [id number] Univers 00:00:00 00:00:00 [facility] 350.1.13.10 it y of [place] 4.2.7.2.686 [place] as Professio [phone] [address] 2020-07-15 2020-07-15 Outpatient R VENU [facility] [id number] Univers 11:30:00 11:30:00 WENTONG [facility] 2020-07-09 2020-07-09 Refnena [facility] 1.2.840.114 [id number] Univers 00:00:00 00:00:00 [facility] 350.1.13.10 it y of [place] 4.2.7.2.686 [place] Professio [phone] [address] 2020-07-03 2020-07-03 Outpatient [facility] [id number] Univers 14:00:00 14:00:00 SENDIL [facility] 2020-06-29 2020-06-29 [facility] [id number] Univers 12:00:00 12:00:00 RAY itarturo of [facility] 2020-06-23 2020-06-23 Outpatient R [facility] [id number] Univers 11:20:00 11:20:00 ity of [facility] 2020-06-23 2020-06-23 Urgent Provider, [facility] 1.2.840.114 [id number] Univers 10:51:46 11:11:46 Care Anthony Nash [employer]act 350.1.13.10 ity of [place] 4.2.7.2.686 [place] Professio [phone] [address] Office Building One 2020-06-23 2020-06-23 Refnena Gloiraalfonso [facility] 1.2.840.114 [id number] Univers 00:00:00 00:00:00 [facility] 350.1.13.10 it y of [place] 4.2.7.2.686 [place] Professio [phone] [address] Office Building One 2020-06-18 2020-06-18 Refill Vikash [facility] 1.2.840.114 [id number] Univers 00:00:00 00:00:00 [facility] 350.1.13.10 it y of [place] 4.2.7.2.686 [place] as Professio [phone] [facility] nal [address] [place] [address] Office Building One 2020-06-10 2020-06-10 Refill [facility] 1.2.840.114 [id number] 21 Univers 00:00:00 00:00:00 [facility] 350.1.13.10 it y of [place] [id number] [place] as Professio [phone] [facility] nal [address] [place] [address] Office [facility] 2020-06-03 2020-06-03 Office [facility] 1.2.840.114 [id number] Univers 12:40:27 13:11:57 Visit [facility] [id number] it y of [place] [id number] [place] as Professio [phone] [facility] nal [address] [place] [address] Office [address] [facility] 2020-06-03 2020-06-03 [facility] [id number] Univers 13:00:00 13:00:00 RAY ity of [facility] 2020-05-22 2020-05-22 Transition [facility] [place] 1.2.840.114 [id number] Univers 00:00:00 00:00:00 of Care Carlo Sorto [id number] [place]y [id number] [phone] [facility] [address] 2020-05-20 2020-05-21 Emergency Tremayne Herrmann [facility] 1.2.840. 114 [id number] Univers 17:02:00 20:33:00 Jackie Busby [id number] [place].2.[place] [phone] [facility] [address] 2020-05-19 2020-05-19 Telephone [facility] [id number] Univers 00:00:00 00:00:00 [facility] [id number] it y of [place] [id number] [place] as Professio [phone] [facility] nal [address] Office [facility] 2020-05-12 2020-05-12 Telephone [facility] [id number] Univers 00:00:00 00:00:00 Briannaong [place] 350.1.13.10 [place] [phone] Nm dical nal 220 [facility] 2020-05-11 2020-05-11 Refill [facility] 1.2.840.114 [id number] Univers 00:00:00 00:00:00 [facility] 350.1.13.10 it y of [place] 4.2.7.2.686 [place] Professio [phone] Nm dicms nal [address] [place] Office [facility] 2020-05-05 2020-05-05 Telephone [facility] 1.2.963.416 [id number] Univers 00:00:00 00:00:00 Wentong [place] 350.1.13.10 [place] [phone] [address] 2020-05-05 2020-05-05 Orders Doctor NATA 1.2.840.114 [id number] Univers 00:00:00 00:00:00 Only Unassigned, DAY 350.1.13.10 ity of [place] [facility] 4.2.7.2.686 [place] as [phone] [address] 2020-05-04 2020-05-04 Telephone Lea, [facility] 1.2.982.632 [id number] Univers 00:00:00 00:00:00 Wentong [place] 350.1.13.10 [place] [phone] [address] 2020-05-04 2020-05-04 Telephone Lea, [facility] 1.2.487.336 [id number] Univers 00:00:00 00:00:00 Wentong [place] 350.1.13.10 [place] [phone] [address] 2020-05-04 2020-05-04 Orders Doctor NATA 1.2.840.114 [id number] Univers 00:00:00 00:00:00 Only Unassigned, DAY 350.1.13.10 ity of [place] [facility] 4.2.7.2.686 [place] [phone] [address] 2020-05-01 2020-05-01 Orders Doctor NATA 1.2.840.114 [id number] Univers 00:00:00 00:00:00 Only Unassigned, DAY 350.1.13.10 ity of [place] [facility] 4.2.7.2.686 [place] [phone] [address] 2020-04-30 2020-04-30 Telephone Lea, [facility] 1.2.416.775 [id number] Univers 00:00:00 00:00:00 Wentong [place] 350.1.13.10 [place] [phone] [address] 2020-04-29 2020-04-29 [employer] Lab, Adc Fam Pob I [facility] 1.2. 840.114 [id number] Univers 12:37:03 12:47:03 Visit Ray Suh [facility] 350.1.13.10 ity of [place] 4.2.7.2.686 [place] Profess[place] [phone] [facility] 044 [facility] 2020-04-29 2020-04-29 Office [facility] 1.2.840.114 [id number] Univers 12:13:59 12:28:59 Visit Ray [facility] 350.1.13.10 it y of [place] 4.2.7.2.686 [place] Profess[place] [phone] [address] 2020-04-29 2020-04-29 Outpatient R VIKASH [facility] [id number] Univers 12:15:00 12:15:[address] [facility] 2020-04-27 2020-04-27 Orders Doctor NATA 1.2.840.114 [id number] Univers 00:00:00 00:00:00 Only Unassigned, DAY 350.1.13.10 ity of [place] [facility] 4.2.7.2.686 [place] [phone] [address] 2020-04-22 2020-04-22 Urgent Provider, [facility] 1.2.840.114 [id number] Univers 13:29:40 14:11:57 Care Ray Suh [facility] 350.1.13.10 ity of [place] 4.2.7.2.686 [place] Profess[place] [phone] [address] 2020-04-22 2020-04-22 Outpatient Dominick SUH [facility] [id number] Univers 13:20:00 13:20:[address] [facility] 2020-04-21 2020-04-21 Refill Vikash [facility] 1.2.840.114 [id number] Univers 00:00:00 00:00:00 [facility] 350.1.13.10 it y of [place] 4.2.7.2.686 [place] Profess[place] [phone] Me dical nal [address] [place] Office [facility] One 2020-04-21 2020-04-21 Telephone Lea, [facility] 1.2.488.199 [id number] Univers 00:00:00 00:00:00 Darryn Joao 350.1.13.10 i [place] [phone] Nm dical nal 220 [facility] 2020-04-16 2020-04-16 [employer] 2, Adc Lab [facility] 1.2.840.114 [id number] Univers 09:22:17 09:37:17 Visit Ray Suh 350.1.13.10 [place] [phone] Nm dical nal 353 [facility] 2020-04-16 2020-04-16 Outpatient R [facility] [id number] Univers 09:15:00 09:15:00 ity of [facility] 2020-04-15 2020-04-15 Office [facility] 1.2.840.114 [id number] Univers 16:00:38 17:03:36 Visit Darryn Shepherd 350.1.13.10 i [place] [phone] [facility] 220 [facility] 2020-04-15 2020-04-15 Outpatient R VENU [facility] [id number] Univers 16:00:00 16:00:00 WENTONG ity of [facility] 2020-04-13 2020-04-13 Orders Doctor PEACE 1.2.840.114 [id number] Univers 00:00:00 00:00:00 Only Unassigned, DAY 350.1.13.10 ity of [place] [facility] 4.2.7.2.686 [place] [phone] [address] 2020-04-09 2020-04-09 Refill Vikash [facility] 1.2.840.114 [id number] Univers 00:00:00 00:00:00 [facility] 350.1.13.10 it y of [place] 4.2.7.2.686 [place] [phone] [address] 2020-04-07 2020-04-07 Sh[facility]y [facility] 1.2.840.114 [id number] Univers 00:00:00 00:00:00 [facility] 350.1.13.10 it y of [place] 4.2.7.2.686 [place] Profess[place] [phone] [address] 2020-04-07 2020-04-07 Orders Doctor NATA 1.2.840.114 [id number] Univers 00:00:00 00:00:00 Only Unassigned, DAY 350.1.13.10 ity of [place] [facility] 4.2.7.2.686 [place] [phone] [address] 2020-04-01 2020-04-01 [facility] 1.2.840.114 [id number] Univers 00:00:00 00:00:00 [facility] 350.1.13.10 it y of [place] 4.2.7.2.686 [place] Professio [phone] [address] 2020-03-27 2020-03-27 [facility] 1.2.840.114 [id number] Univers 00:00:00 00:00:00 [facility] 350.1.13.10 it y of [place] 4.2.7.2.686 [place] Professio [phone] [address] 2020-03-11 2020-03-11 [facility]y [facility] 1.2.840.114 [id number] Univers 00:00:00 00:00:00 [facility] 350.1.13.10 it y of [place] 4.2.7.2.686 [place] Professio [phone] [address] One 2020-03-01 2020-03-01 [facility] 1.2.840.114 [id number] Univers 00:00:00 00:00:00 [facility] 350.1.13.10 it y of [place] 4.2.7.2.686 [place] Profess[place] [phone] [address] 2020-02-10 2020-02-10 Telephone [facility] 1.2.272.260 [id number] Univers 00:00:00 00:00:00 [facility] 350.1.13.10 it y of [place] 4.2.7.2.686 [place] Professio [phone] [address] 2020-02-09 2020-02-09 Refill [facility] 1.2.840.114 [id number] Univers 00:00:00 00:00:00 [facility] 350.1.13.10 it y of [place] 4.2.7.2.686 [place] Professio [phone] [address] 2020-02-07 2020-02-07 Refnena [facility] 1.2.840.114 [id number] Univers 00:00:00 00:00:00 [facility] 350.1.13.10 it y of [place] 4.2.7.2.686 [place] Profess[place] [phone] [address] 2020-02-04 2020-02-04 Outpatient R VENU [facility] [id number] Univers 14:30:00 14:30:[address] [facility] 2020-02-04 2020-02-04 Telemedici [facility] 1.2.840.114 [id number] Univers 08:05:00 11:41:37 ne Visit Darryn Marston 350.1.13.10 [place] [phone] [facility] 220 [facility] 2020-02-03 2020-02-03 [facility] [id number] Univers 14:15:00 14:15:[address] [facility] 2020-02-03 2020-02-03 Telemedici [facility] 1.2.840.114 [id number] Univers 08:28:20 08:43:20 ne Visit Ray Marston 350.1.13.10 it[place] of [place] [phone] Nm dical nal 044 [facility] 2020-01-21 2020-01-21 Telephone Venu [facility] 1.2.506.206 [id number] Univers 00:00:00 00:00:00 Darryn [place] 350.1.13.10 i ty [place] [phone] Nm dical nal 220 [facility] 2020-01-21 2020-01-21 Orders Doctor NATA 1.2.840.114 [id number] Univers 00:00:00 00:00:00 Only Unassigned, DAY 350.1.13.10 ity of [place] [facility] 4.2.7.2.686 [place] [phone] [address] 2020-01-14 2020-01-14 Telephone [facility] 1.2.685.720 [id number] Univers 00:00:00 00:00:00 Ray Shepherd 350.1.13.10 i ty [place] [phone] Nm dical nal 044 [facility] 2020-01-08 2020-01-08 Refill [facility] 1.2.840.114 [id number] Univers 00:00:00 00:00:00 [facility] 350.1.13.10 it y of [place] 4.2.7.2.686 [place] Professio [phone] Nm dicms nal [address] [place] [address] Building One 2019-12-20 2019-12-20 Outpatient R LILIA RICH [facility] 10 [id number] Univers 13:00:00 13:00:00 LILIA RICH i ty of [facility] 2019-12-20 2019-12-20 Telemedici Bucky [facility] 1.2.840.114 [id number] Univers 08:17:31 08:37:31 ne Visit Lilia Shepherd 350.1.13.10 it[place] [phone] Nm dicms nal 085 [facility] 2019-12-12 2019-12-12 Telephone [facility] 1.2.938.506 [id number] Univers 00:00:00 00:00:00 [facility] 350.1.13.10 it y of [place] 4.2.7.2.686 [place] Profess[place] [phone] Nm dicms nal [address] [place] [address] 2019-12-09 2019-12-09 Refnena [facility] 1.2.840.114 [id number] Univers 00:00:00 00:00:00 [facility] 350.1.13.10 it y of [place] 4.2.7.2.686 [place] Professio [phone] [facility] [address] [place] [address] 2019-12-06 2019-12-06 Refnena [facility] 1.2.840.114 [id number] Univers 00:00:00 00:00:00 [facility] 350.1.13.10 it y of [place] 4.2.7.2.686 [place] Profess[place] [phone] [address] 2019-11-21 2019-11-21 Outpatient [facility] [id number] Univers 12:00:00 12:00:00 RAY ity of [facility] 2019-11-21 2019-11-21 Telemedici [facility] 1.2.840.114 [id number] Univers 07:13:41 07:28:41 ne Visit Ray Shepherd 350.1.13.10 ity of [place].2.[place] [phone] [facility] nal [address] [place] [address] 2019-11-21 2019-11-21 Refill [facility] 1.2.840.114 [id number] Univers 00:00:00 00:00:00 [facility] 350.1.13.10 it y of [place] 4.2.7.2.686 [place] Professio [phone] [facility] nal [address] [place] [address] 2019-11-18 2019-11-18 Telephone [facility] 1.2.028.982 [id number] Univers 00:00:00 00:00:00 Ray Shepherd 350.1.13.10 i ty [place] [phone] [address] 2019-11-11 2019-11-11 [facility] 1.2.568.387 [id number] Univers 00:00:00 00:00:00 Ray Shepherd 350.1.13.10 i ty [place] [phone] [address] 2019-11-11 2019-11-11 Orders Doctor NATA 1.2.840.114 [id number] Univers 00:00:00 00:00:00 Only Unassigned, DAY 350.1.13.10 ity of [place] [facility] 4.2.7.2.686 [place] [phone] [facility] [address] [place] 2019-11-05 2019-11-05 Telephone [facility] 1.2.669.197 [id number] Univers 00:00:00 00:00:00 Ray Shepherd 350.1.13.10 i ty [place]2.[place] [phone] [address] 2019-11-03 2019-11-03 Refill [facility] 1.2.840.114 [id number] Univers 00:00:00 00:00:00 Ray Shepherd 350.1.13.10 i ty [place]2.7.2.[place] [phone] [address] 2019-10-23 2019-10-23 Outpatient R LILIA RICH [facility] 10 [id number] Univers 11:40:01 23:59:00 LILIA RICH i ty of [facility] 2019-10-23 2019-10-23 [facility] 1.2.840.114 [id number] Univers 11:30:00 23:59:00 Encounter Lilia Shepherd 350.1.13.10 ity of [place] 4[place]2.7.2.[place] [phone] [facility] [address] [place] 2019-10-23 2019-10-23 Outpatient R LILIA RICH [facility] 10 [id number] Univers 00:00:00 00:00:00 LILIA RICH i ty of [facility] 2019-10-23 2019-10-23 Orders Doctor NATA 1.2.840.114 [id number] Univers 00:00:00 00:00:00 Only Unassigned, DAY 350.1.13.10 ity of [place] [facility] 4.2.7.2.686 [place] [phone] [address] 2019-10-11 2019-10-11 Office [facility] 1.2.840.114 [id number] Univers 11:53:08 12:47:38 Visit Lilia [place] 350.1.13.10 [place] 4[place]2.7.2.[place] [phone] Nm dical nal 085 [facility] 2019-10-11 2019-10-11 Outpatient R LILIA RICH [facility] 10 [id number] Univers 11:00:00 11:00:00 LILIA RICH i ty of [facility] 2019-10-07 2019-10-07 Refnena [facility] 1.2.840.114 [id number] Univers 00:00:00 00:00:00 [facility] 350.1.13.10 it y of [place] 4.2.7.2.686 [place] Professio [phone] [facility]44 [facility] 2019-10-03 2019-10-03 Refnena [facility] 1.2.840.114 [id number] Univers 00:00:00 00:00:00 [facility] 350.1.13.10 it y of [place] 4.2.7.2.686 [place] Professio [phone] Nm dical nal 044 [facility] 2019-10-02 2019-10-02 Office [facility] 1.2.840.114 [id number] Univers 11:45:20 12:45:22 Visit Darryn Marston 350.1.13.10 i [place].2.[place] [phone] Nm dical nal 220 [facility] 2019-10-02 2019-10-02 Outpatient R VENU [facility] [id number] Univers 11:30:00 11:30:00 DARRYN [facility] 2019-10-02 2019-10-02 Orders Doctor NATA 1.2.840.114 [id number] Univers 00:00:00 00:00:00 Only Unassigned, DAY 350.1.13.10 ity of [place] [facility] 4.2.7.2.686 [place] [phone] [address] 2019-09-23 2019-09-23 Office [facility] 1.2.840.114 [id number] Univers 11:58:44 12:11:14 Visit [facility] 350.1.13.10 it y of [place] 4.2.7.2.686 [place] Professio [phone] [address] 2019-09-23 2019-09-23 Outpatient [facility] [id number] Univers 12:00:00 12:00:00 [facility] 2019-09-16 2019-09-16 Refnena [facility] 1.2.840.114 [id number] Univers 00:00:00 00:00:00 [facility] 350.1.13.10 it y of [place] 4.2.7.2.686 [place] Profess[place] [phone] [address] 2019-09-12 2019-09-12 Refnena [facility] 1.2.840.114 [id number] Univers 00:00:00 00:00:00 [facility] 350.1.13.10 it y of [place] 4.2.7.2.686 [place] Professio [phone] [address] 2019-09-03 2019-09-03 Shayy [facility] 1.2.840.114 [id number] Univers 00:00:00 00:00:00 Ray Shepherd 350.1.13.10 i ty [place].2.[place] [phone] [address] 2019-08-21 2019-08-21 Shayy [facility] 1.2.840.114 [id number] Univers 00:00:00 00:00:00 [facility] 350.1.13.10 it y of [place] 4.2.7.2.686 [place] Professio [phone] [address] One 2019-07-29 2019-07-29 Outpatient R FLORIAN [facility] [id number] Univers 13:20:48 23:59:00 ELLIE ity of [facility] 2019-07-22 2019-07-22 Orders Doctor NATA 1.2.840.114 [id number] Univers 00:00:00 00:00:00 Only Unassigned, DAY 350.1.13.10 ity of [place] [facility] 4.2.7.2.686 [place] [phone] [address] 2019-04-10 2019-04-10 Telephone [facility] 1.2.201.959 [id number] Univers 00:00:00 00:00:00 [facility] 350.1.13.10 it y of [place] 4.2.7.2.686 [place] Professio [phone] [address] One 2019-04-02 2019-04-02 Shayy [facility] 1.2.840.114 [id number] Univers 00:00:00 00:00:00 [facility] 350.1.13.10 it y of [place] 4.2.7.2.686 [place] Professio [phone] [address] One 2019-03-29 2019-03-29 Refnena [facility] 1.2.840.114 [id number] Univers 00:00:00 00:00:00 [facility] 350.1.13.10 it y of [place] 4.2.7.2.686 [place] Professio [phone] [address] One 2019-03-27 2019-03-27 Shayy [facility] 1.2.840.114 [id number] Univers 00:00:00 00:00:00 [facility] 350.1.13.10 it y of [place] 4.2.7.2.686 [place] Professio [phone] [address] Office Building One 2019-03-23 2019-03-23 Refnena Basilio [facility] 1.2.840.114 [id number] Univers 00:00:00 00:00:00 [facility] 350.1.13.10 it y of [place] 4.2.7.2.686 [place] Professio [phone] [address] Office Building One 2019-03-20 2019-03-21 Office [facility] 1.2.840.114 [id number] Univers 13:17:58 08:12:27 Visit [facility] 350.1.13.10 it y of [place] 4.2.7.2.686 [place] Professio [phone] [address] One 2019-03-20 2019-03-20 Telephone [facility] 1.2.665.928 [id number] Univers 00:00:00 00:00:00 [facility] 350.1.13.10 it y of [place] 4.2.7.2.686 [place] Professio [phone] [address] Office [facility] One 2019-03-20 2019-03-20 Refnena [facility] 1.2.840.114 [id number] Univers 00:00:00 00:00:00 [facility] 350.1.13.10 it y of [place] 4.2.7.2.686 [place] Professio [phone] [address] Office [facility] One 2019-03-14 2019-03-14 Refill [facility] 1.2.840.114 [id number] Univers 00:00:00 00:00:00 [facility] 350.1.13.10 it y of [place] 4.2.7.2.686 [place] Professio [phone] [facility] nal [address] [place] [address] Office Building One 2019-02-28 2019-02-28 Refnena [facility] 1.2.840.114 [id number] Univers 00:00:00 00:00:00 [facility] 350.1.13.10 i ty of [place] 4.2.7.2.686 [place] Professio [phone] Nm dical nal [address] [place] Office [address] One 2019-02-26 2019-02-26 Shayy Suh TNOSMAR 1.2.840.114 [id number] Univers 00:00:00 00:00:00 [facility] 350.1.13.10 it y of [place] 4.2.7.2.686 [place] Professio [phone] Nm dical nal [address] [place] Office [address] One 2019-02-22 2019-02-22 Orders Doctor NATA 1.2.840.114 [id number] Univers 00:00:00 00:00:00 Only Unassigned, DAY 350.1.13.10 ity of [place] [facility] 4.2.7.2.686 [place] as [phone] [address] 2017-09-15 2017-09-15 Orders Doctor NATA 1.2.840.114 [id number] Univers 00:00:00 00:00:00 Only Unassigned, DAY 350.1.13.10 ity of [place] [facility] 4.2.7.2.686 [place] [phone] [address] Results Test Description Test Time Test Comments Results Result Comments Source POCT URINALYSIS, INSTRUMENT 2022-07-06 22:05:00 Test Item Value Reference Range Interpretation Comme nts POCT U SP GRAV (test code = 3255) 1.005 mg/dl 1.005-1.025 POCT PH U (test code = 3254) 6.0 mg/dl 5-8 POCT U LEUK EST (test code = 3263) negative Negative - Negative POCT U NIT (test code = 3262) negative Negative - Negative POCT U PROT (test code = 3259) negative Negative - Negative POCT U GLU (test code = 3256) negative Negative - Negative POCT U KETONE (test code = 3258) negative Negative - Negative POCT U UROBILI (test code = 3260) 0.2 mg/dl 0.2-1 POCT U BILI (test code = 3261) negative Negative - Negative POCT U BLD (test code = 3257) negative Negative - Negative POCT U COLOR (test code = 3266) yellow POCT U APPEAR (test code = 3267) clear Lab Interpretation (test code = 17433-6) Normal [facility], [id number] 22:05:00 Test Item Value Reference Range Interpretation Comments POCT U SP GRAV (test code = 1.005 mg/dl 1.005-1.025 3255) POCT PH U (test code = 3254) 6.0 mg/dl 5-8 POCT U LEUK EST (test code = negative Negative - Negative 3263) POCT U NIT (test code = 3262) negative Negative - Negative POCT U PROT (test code = negative Negative - Negative 3259) POCT U GLU (test code = 3256) negative Negative - Negative POCT U KETONE (test code = negative Negative - Negative 3258) POCT U UROBILI (test code = 0.2 mg/dl 0.2-1 3260) POCT U BILI (test code = negative Negative - Negative 3261) POCT U BLD (test code = 3257) negative Negative - Negative POCT U COLOR (test code = yellow 3266) POCT U APPEAR (test code = clear 3267) Lab Interpretation (test code Normal = 00298-1) [facility]
[2022-07-22] MEDS ORDERED: ONDANSETRON 4 MG/2 ML VIAL ONE (21:36)
[2022-07-22] MEDS ORDERED: NA CHLORIDE 0.9% 1,000 ML ONE (21:36)
[2022-07-22 22:01] LABS: Absolute Lymphocytes (CBC) 0.8 K/uL (0.7-4.9); Hematocrit 34.6 % (39.6-49.0); Lymphocytes % 6.3 % (15.3-44.8); MCV 89.8 fL (80-100); MPV 10.3 fL (7.6-11.3); RBC Red Blood Cell Count 3.85 M/uL (4.33-5.43)
--- NOTE | 2022-07-22 22:10 | RAD REPORT ---
EXAM DESCRIPTION: RAD - Chest Single View - 07/22/2022 9:42 pm CLINICAL HISTORY: COUGH COMPARISON: Portable 12/06/2020 TECHNIQUE: AP portable chest image was obtained 07/22/2022 9:42 pm . FINDINGS: No peripheral mass consolidation. Interstitial pattern matches comparison when adjusting f or differences in imaging technique. Heart and vasculature are normal. No measurable pleural effusion and no pneumothorax. No acute bony abnormality seen. No acute aortic findings suspected. IMPRESSION: No acute cardiopulmonary process.
[2022-07-22 22:13] LABS: ALT/SGPT 40 U/L (16-61); Alkaline Phosphatase 121 U/L (45-117); BUN Blood Urea Nitrogen 19 mg/dL (7-18); Bicarbonate 22 mmol/L (21-32); Bilirubin Total 0.6 mg/dL (0.2-1.0); Glomerular Filtration Rate 56 ml/min (=/>90); Glucose Level 277 mg/dL (74-106); Lipase 18 U/L (73-393); Protein, Total 6.6 g/dL (6.4-8.2); Sodium Level 133 mmol/L (136-145); Troponin High Sensitivity 11.8 pg/mL (<58.9)
[2022-07-22 22:14] LABS: Urine Blood Trace-intact (Negative); Urine Glucose Trace (Negative); Urine Protein 1+ (Negative); Urine Specific Gravity 1.015 (1.005-1.030); Urine pH 5.5 (5.0-7.0)
[2022-07-22 22:15] LABS: SARS-COV-2 RT PCR NEGATIVE (NEGATIVE)
[2022-07-22 22:21] LABS: AST/SGOT 35 U/L (15-37); Magnesium 1.9 mg/dL (1.6-2.4); Potassium 3.2 mmol/L (3.5-5.1)
[2022-07-22 22:29] LABS: Urine Bacteria None Seen /HPF (<20); Urine Crystals Unidentified Few /HPF (None Seen); Urine Mucus Slight /HPF (None Seen)
--- NOTE | 2022-07-22 23:20 | EDPHYS ---
Physician Documentation [facility] Name: Rafia Segundo Age: 66 yrs Sex: Male : 1955 Arrival Date: 07/22/2022 Time: 20:31 Bed 15 Private MD: ED Physician Nick Martinez HPI: 07/22 21:28 This 66 yrs old Male presents to ER via Ambulatory with complaints of highBlood Sugar, rt High Blood Pressure, General Weakness. 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 He states that he has had an associated cough, congestion, generalized malaise. Reports mild shortness of breath. Started after the patient received a COVID-19 booster. He states that his blood sugar has been running high to the 3-4 100s requiring multiple boluses off of his insulin pump. She reports a dry mouth. Denies other acute complaints at this time. Symptoms are moderate in severity, no other aggravating or alleviating factors.. Historical: - Allergies: 20:47 Skelaxin; kb3 - PMHx: 20:47 Back pain; Cancer of gall bladder duct; pancreatic CA; Chronic pain; COPD; Diabetes - kb3 IDDM; Hypertension; Insulin pump; neuropathy; Pancreatitis; RESTLESS LEG SYN; Blockages in right leg, left carotid and abdomen; - PSHx: 20:47 Whipple; liver lobe resection; Cholecystectomy; Appendectomy; kb3 20:51 Back sx; Shoulder sx; Knee sx; kb3 - Immunization history:: Adult Immunizations up to date, Client reports receiving the 2nd dose of the Covid vaccine, Last tetanus immunization: unknown. - Social history:: Smoking status: Patient reports the use of cigarette tobacco products, smokes two packs cigarettes per day. - Family history:: not pertinent. ROS: 21:28 Constitutional: Negative for fever, chills, and weight loss, Eyes: Negative for injury, rt pain, redness, and discharge, Neck: Negative for injury, pain, and swelling, Cardiovascular: Negative for chest pain, palpitations, and edema, Back: Negative for injury and pain, MS/Extremity: Negative for injury and deformity, Skin: Negative for injury, rash, and discoloration, Neuro: Negative for headache, weakness, numbness, tingling, and seizure, Psych: Negative for depression, anxiety, suicide ideation, homicidal ideation, and hallucinations. 21:28 ENT: Positive for rhinorrhea, Negative for sore throat. 21:28 Respiratory: Positive for cough, shortness of breath. 21:28 Abdomen/GI: Positive for nausea, vomiting, and diarrhea, Negative for abdominal pain. 21:28 Endocrine: Positive for polydipsia, polyuria. Exam: 21:28 Constitutional: This is a well developed, well nourished patient who is awake, alert, rt and in no acute distress. Head/Face: Normocephalic, atraumatic. Eyes: Pupils equal round and reactive to light, extra-ocular motions intact. Lids and lashes normal. Conjunctiva and sclera are non-icteric and not injected. Cornea within normal limits. Periorbital areas with no swelling, redness, or edema. Neck: Trachea midline, no thyromegaly or masses palpated, and no cervical lymphadenopathy. Supple, full range of motion without nuchal rigidity, or vertebral point tenderness. No Meningismus. Chest/axilla: Normal chest wall appearance and motion. Nontender with no deformity. No lesions are appreciated. Cardiovascular: Regular rate and rhythm with a normal S1 and S2. No gallops, murmurs, or rubs. Normal PMI, no JVD. No pulse deficits. Respiratory: Lungs have equal breath sounds bilaterally, clear to auscultation and percussion. No rales, rhonchi or wheezes noted. No increased work of breathing, no retractions or nasal flaring. Abdomen/GI: Soft, non-tender, with normal bowel sounds. No distension or tympany. No guarding or rebound. No evidence of tenderness throughout. Skin: Warm, dry with normal turgor. Normal color with no rashes, no lesions, and no evidence of cellulitis. MS/ Extremity: Pulses equal, no cyanosis. Neurovascular intact. Full, normal range of motion. Neuro: Awake and alert, GCS 15, oriented to person, place, time, and situation. Cranial nerves II-XII grossly intact. Motor strength 5/5 in all extremities. Sensory grossly intact. Cerebellar exam normal. Normal gait. Psych: Awake, alert, with orientation to person, place and time. Behavior, mood, and affect are within normal limits. 21:28 ENT: Dry mucous membranes. 21:44 ECG was reviewed by the Attending Physician. rt Vital Signs: 20:41 BP 124 / 63; Pulse 104; Resp 20; Temp 98.6; Pulse Ox 97% ; Weight 77.11 kg; Height 5 kb3 ft. 9 in. (175.26 cm); Pain 5/10; 21:52 BP 116 / 65; Pulse 92; Resp 18 S; Pulse Ox 97% on R/A; ha1 22:22 BP 135 / 60; Pulse 83; Resp 19; Pulse Ox 98% on R/A; vc1 22:51 BP 152 / 80; Pulse 89; Resp 18; Pulse Ox 100% ; vc1 23:49 BP 136 / 80; Pulse 83; Resp 17; Temp 98.9(O); Pulse Ox 98% ; vc1 20:41 Body Mass Index 25.10 (77.11 kg, 175.26 cm) kb3 MDM: 20:54 Patient medically screened. rt 23:21 Differential diagnosis: DKA, hyperglycemia, sepsis. Data reviewed: vital signs, nurses rt notes, old medical records, lab test result(s), EKG, radiologic studies. ED course: With history of diabetes presents to the ED with reported hyperglycemia, cough, congestion, generalized malaise. Patient is found to have blood sugar in the 200s, no evidence of DKA on labs. Given history of Whipple procedure, CT scan was obtained that shows no acute abnormalities. His labs reveal only a mildly elevated creatinine, not meeting criteria for ARLEN. This was treated with IV fluids. Patient given Zofran. He is found have influenza A. Given comorbidities, will treat with Tamiflu and Zofran. Vital signs are stable, no meet indications for mission to the hospital. Patient to follow-up with primary care, return precautions were discussed with the patient.. 07/22 21:12 Order name: CBC with Diff; Complete Time: 22:37 rt 07/22 21:12 Order name: CMP; Complete Time: 22:55 rt 07/22 21:12 Order name: Magnesium; Complete Time: 22:55 rt 07/22 21:12 Order name: Lipase; Complete Time: 22:55 rt 07/22 21:12 Order name: Troponin High Sensitivity; Complete Time: 22:55 rt 07/22 21:12 Order name: Ketone, Serum; Complete Time: 22:55 rt 07/22 21:12 Order name: EKG; Complete Time: 21:13 rt 07/22 21:12 Order name: Chest Single View XRAY; Complete Time: 22:37 rt 07/22 21:12 Order name: CT Abd/Pelvis - IV Contrast Only rt 07/22 21:12 Order name: UA MICROSCOPIC; Complete Time: 22:37 rt 07/22 21:12 Order name: COVID-19/FLU A+B; Complete Time: 22:37 rt 07/22 22:14 Order name: Urine Dipstick-Ancillary; Complete Time: 22:37 EDMS 07/22 21:12 Order name: EKG - Nurse/Tech; Complete Time: 21:55 rt 07/22 21:12 Order name: Urine Dipstick-Ancillary (obtain specimen); Complete Time: 22:15 rt EC:44 Rate is 91 beats/min. Rhythm is regular, Normal Sinus Rhythm with No ectopy. QRS [place] rt is Normal. CT interval is normal. QRS interval is normal. QT interval is normal. No Q waves. T waves are Normal. No ST changes noted. Administered Medications: 20:48 Drug: NS 0.9% 1000 ml Route: IV; Rate: 1 bolus; Site: right antecubital; ha1 23:40 Follow up: IV Status: Completed infusion; IV Intake: 1000ml vc1 21:50 Drug: Zofran (Ondansetron) 4 mg Route: IVP; Site: right antecubital; ha1 23:41 Follow up: Response: No adverse reaction; Marked relief of symptoms vc1 Disposition Summary: 07/22/22 23:20 Discharge Ordered Location: Home rt Problem: new rt Symptoms: have improved rt Condition: Stable rt Diagnosis - Influenza due to identified novel influenza A virus rt Followup: rt - With: Private Physician - When: 2 - 3 days - Reason: Followup: rt - With: Emergency Department - When: As needed - Reason: Worsening of condition Discharge Instructions: - Discharge Summary Sheet rt - Influenza, Adult, [id number] rt Forms: - Medication Reconciliation Form rt - Thank You Letter rt - Antibiotic Education rt - Prescription Opioid Use rt Prescriptions: - Zofran 4 mg Oral Tablet - take 1 tablet by ORAL route every 12 hours As needed; 20 tablet; Refills: 0, rt Product Selection Permitted - Tamiflu 75 mg Oral Capsule - take 1 tablet by ORAL route every 12 hours for 5 days; 10 tablet; Refills: 0, rt Product Selection Permitted Signatures: Dispatcher [employer] Martine Grover, RN RN ha1 Erinn Turner RN RN kb3 Nick Martinez MD MD rt Calcote, Jackie RN vc1
--- NOTE | 2022-07-22 23:20 | ER ---
Nurse's Notes [facility] Name: Rafia Segundo Age: 66 yrs Sex: Male : 1955 Arrival Date: 07/22/2022 Time: 20:31 Bed 15 Private MD: Diagnosis: Influenza due to identified novel influenza A virus Presentation: 07/22 20:41 Chief complaint: Patient states: feeling unwell since Monday with cough, congestion, kb3 fever, vomiting, diarrhea, high blood pressure and high blood sugar. Coronavirus screen: Vaccine status: Patient reports receiving the 2nd dose of the covid vaccine. Client denies travel out of the [place] in the last 14 days. Ebola Screen: Patient negative for fever greater than or equal to 101.5 degrees Fahrenheit, and additional compatible Ebola Virus Disease symptoms Patient denies exposure to infectious person. Patient denies travel to an Ebola-affected area in the 21 days before illness onset. Initial Sepsis Screen: Does the patient meet any 2 criteria? No. Patient's initial sepsis screen is negative. Does the patient have a suspected source of infection? No. Patient's initial sepsis screen is negative. Risk Assessment: Do you want to hurt yourself or someone else? Patient reports no desire to harm self or others. Onset of symptoms was July 17, 2022. 20:41 Method Of Arrival: Ambulatory kb3 20:41 Acuity: ARBEN 3 kb3 Triage Assessment: 20:51 General: Appears in no apparent distress. uncomfortable, Behavior is calm, cooperative. kb3 Pain: Complains of pain in anterior aspect of right upper chest Pain does not radiate. Pain currently is 5 out of 10 on a pain scale. Quality of pain is described as aching. Respiratory: Reports cough that is productive. GI: Reports diarrhea. Historical: - Allergies: 20:47 Skelaxin; kb3 - PMHx: 20:47 Back pain; Cancer of gall bladder duct; pancreatic CA; Chronic pain; COPD; Diabetes - kb3 IDDM; Hypertension; Insulin pump; neuropathy; Pancreatitis; RESTLESS LEG SYN; Blockages in right leg, left carotid and abdomen; - PSHx: 20:47 Whipple; liver lobe resection; Cholecystectomy; Appendectomy; kb3 20:51 Back sx; Shoulder sx; Knee sx; kb3 - Immunization history:: Adult Immunizations up to date, Client reports receiving the 2nd dose of the Covid vaccine, Last tetanus immunization: unknown. - Social history:: Smoking status: Patient reports the use of cigarette tobacco products, smokes two packs cigarettes per day. - Family history:: not pertinent. Screenin:53 Abuse screen: Denies threats or abuse. Denies injuries from another. Nutritional ha1 screening: No deficits noted. Tuberculosis screening: No symptoms or risk factors identified. 23:40 [facility] ED Fall Risk Assessment (Adult) History of falling in the last 3 months, vc1 including since admission No falls in past 3 months (0 pts). Assessment: 21:51 Reassessment: Patient and/or family updated on plan of care and expected duration. Pain ha1 level reassessed. Patient is alert, oriented x 3, equal unlabored respirations, skin warm/dry/pink. Patient denies pain at this time. 22:30 Reassessment: No changes from previously documented assessment. Patient and/or family vc1 updated on plan of care and expected duration. Pain level reassessed. 23:30 Reassessment: Patient and/or family updated on plan of care and expected duration. Pain vc1 level reassessed. Patient denies pain at this time. Patient states feeling better. Vital Signs: 20:41 BP 124 / 63; Pulse 104; Resp 20; Temp 98.6; Pulse Ox 97% ; Weight 77.11 kg; Height 5 kb3 ft. 9 in. (175.26 cm); Pain 5/10; 21:52 BP 116 / 65; Pulse 92; Resp 18 S; Pulse Ox 97% on R/A; ha1 22:22 BP 135 / 60; Pulse 83; Resp 19; Pulse Ox 98% on R/A; vc1 22:51 BP 152 / 80; Pulse 89; Resp 18; Pulse Ox 100% ; vc1 23:49 BP 136 / 80; Pulse 83; Resp 17; Temp 98.9(O); Pulse Ox 98% ; vc1 20:41 Body Mass Index 25.10 (77.11 kg, 175.26 cm) kb3 ED Course: 20:31 Patient arrived in ED. [id number] 20:32 Nick Martinez MD is Attending Physician. rt 20:47 Triage completed. kb3 20:51 Arm band placed on right wrist. kb3 21:20 Calcote, Jackie, RN is Primary Nurse. vc1 21:25 Inserted saline lock: 20 gauge in right forearm, using aseptic technique. Blood vc1 collected. 21:44 Chest Single View XRAY In Process Unspecified. EDMS 21:53 Patient has correct armband on for positive identification. Placed in gown. Bed in low ha1 position. Call light in reach. Side rails up X 1. Adult w/ patient. 22:35 IV discontinued, IV infiltrated; pressure dressing applied. vc1 22:35 Inserted saline lock: 20 gauge in right upper arm, using aseptic technique. vc1 22:57 CT Abd/Pelvis - IV Contrast Only In Process Unspecified. EDMS 23:39 No provider procedures requiring assistance completed. vc1 Administered Medications: 20:48 Drug: NS 0.9% 1000 ml Route: IV; Rate: 1 bolus; Site: right antecubital; ha1 23:40 Follow up: IV Status: Completed infusion; IV Intake: 1000ml vc1 21:50 Drug: Zofran (Ondansetron) 4 mg Route: IVP; Site: right antecubital; ha1 23:41 Follow up: Response: No adverse reaction; Marked relief of symptoms vc1 Medication: 23:39 VIS not applicable for this client. vc1 Intake: 23:40 IV: 1000ml; Total: 1000ml. vc1 Outcome: 23:20 Discharge ordered by . rt 23:48 Discharged to home ambulatory, with family. vc1 23:48 Condition: good 23:48 Discharge instructions given to patient, Instructed on discharge instructions, follow up and referral plans. medication usage, Demonstrated understanding of instructions, follow-up care, medications, Prescriptions given X 2. 23:50 Patient left the ED. vc1 Signatures: Dispatcher [employer] EDMS Sylvia Roche [id number] Jackie Frost, VIC RN vc1 Martine Cao RN RN ha1 Erinn Turner RN RN [id number] Nick Martinez MD MD rt Corrections: (The following items were deleted from the chart) 20:53 20:41 Chief complaint: Patient states: feeling unwell since Monday with cough, kb3 congestion, fever, vomiting, high blood pressure and high blood sugar. kb3
[2022-07-22 23:59] VITALS: BP 136/80; TEMP 98.9; O2SAT 98
--- NOTE | 2022-07-24 10:59 | RAD REPORT ---
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 TECHNIQUE: Contrast-enhanced images of the abdomen and pelvis were performed utilizing 5 mm slice th ickness at 5 mm interval reconstruction from the lung bases to the ischial tuberosities after the adm inistration of IV contrast. In addition multiplanar reformats in the coronal and sagittal plane were obtained and reviewed. This exam was performed according to our departmental dose-optimization protocol, which includes auto mated exposure control, adjustment of the mA and/or kV according to patient size and/or use of iterat jessica reconstruction technique. FINDINGS: The lung bases demonstrate to be clear. There is a small hiatal hernia. The liver demonstrate decreased attenuation corresponding to fatty infiltration. Otherwise the liver, spleen and adrenal glands demonstrate to be unremarkable, no focal lesions are noted. The gallbladder was not visualized suggesting prior cholecystectomy. There is pneumobilia. There is c alcification throughout the pancreas corresponding to most likely changes of chronic pancreatitis. Multiple collaterals veins are identified within the left flank/abdomen from mesenteric vein/splenic hilum suggesting the possibility of portal hypertension The kidneys demonstrate normal uptake of contrast media. No evidence for nephrolithiasis and/or hydro nephrosis. Grossly the unopacified stomach, small bowel and large bowel demonstrate to be within normal limits. There is no evidence for bowel dilatation/or free air. The appendix is normal. The urinary bladder demonstrate to be unremarkable. The prostate gland is normal. The aorta demon strate minimal atherosclerotic disease extending into the aortic bifurcation. There is no retroperi toneal lymphadenopathy. There is no evidence for ascites/or significant abnormal fluid collections. The bone windows demonstrate mild diffuse bony neutropenia. Findings just decompression laminectomy a t L4/L5. There is a small left inguinal hernia containing omentum IMPRESSION: No acute intra-abdominal process. Fatty infiltration of the liver. Status post cholecystectomy with pneumobilia. Chronic pancreatitis. Multiple collaterals veins within the left flank/abdomen suggesting the possibility of portal hyperte nsion. Small hiatal hernia. Small left inguinal hernia containing omentum. Electronically signed by: Noe Seals MD 07/22/2022 11:07 PM FORKLIFT DRIVER Due to temporary technical issues with the PACS/Fluency reporting system, reports are being signed by the in house radiologists without review as a courtesy to insure prompt reporting. The interpreting radiologist is fully responsible for the content of the report.
--- NOTE | 2022-07-26 13:45 | EKG ---
Test Date: 2022-07-22 Test Time: 21:41:37 Service Dispatcher: RV MEASUREMENT RESULTS: Intervals: Rate: 91 [place]: 150 QRSD: 100 QT: 360 QTc: 442 [place]: P: 75 [place]: 150 QRS: 48 T: 51 INTERPRETIVE STATEMENTS: Normal sinus rhythm Normal ECG Compared to ECG 12/06/2020 16:59:18 No significant changes Electronically Signed On 07-26-22 13:40:01 BANK SALES AND SERVICE MANAGER by Red Underwood
== END 2022-07-22 23:50 | disposition home or self-care (01) ==
LOC: ER 20:27
DX: J10.1 Influenza due to other identified influenza virus with other respiratory manifestations (principal); Z20.822 Contact with and (suspected) exposure to COVID-19; I10 Essential (primary) hypertension; E11.9 Type 2 diabetes mellitus without complications; Z96.41 Presence of insulin pump (external) (internal); Z79.4 Long term (current) use of insulin
CPT/HCPCS: 96361; 85025; 36415; 82010; 83735; 84484; 83690; 80053; 0240U; 74177; 71045; 96374; 99284; Q9967; J7030; J2405; 81003; 81015; 93005

== ENCOUNTER 2022-07-24 09:41 | Emergency (ER) | payer OTHER ==
--- OUTSIDE RECORDS SUMMARY | 2022-07-24 10:01 | XMS REPORT | Continuity of Care Document ---
:1955 Author Organization [facility] t Address [address] [place] [address] Care Team Providers Name Role Phone Ray [...] Clinician MIO AKBAR Attending Clinician Unavailable MIO AKBAR Attending Clinician Unavailable Mariola Berrios MD Attending Clinician Alina Burch Attending Clinician Chintan Richards MD.HLon Attending Clinician CHINTAN RICHARDS.HLon Attending Clinician Unavailable Doctor Unassigned, [place] Attending Clinician Unavailable Brady Cardozo MD Attending Clinician Mayra TOOLMAKER HELPER, Anne-Marie Attending Clinician Chetna BUSH, Ángel Acosta Attending Clinician HERMILA COLIN Attending Clinician Unavailable MARIA LUISA JARVIS Attending Clinician Unavailable Simona PAC, Maria Luisa Garcia Attending Clinician Jian ANGELES Attending Clinician Unavailable Jian Chicas Attending Clinician ANTHONY NASH Attending Clinician Unavailable Charity TOOLMAKER HELPER, Anthony Attending Clinician Chet BUSH, Rebecca Garcia Attending Clinician 2, Adc Lab Attending Clinician Unavailable SERGO MONTERO Attending Clinician Unavailable Only, Adc Test Attending Clinician Unavailable Nurse, Adc Pob Immunization Attending Clinician Unavailable Tony Lopez DO Attending Clinician TONY LOPEZ Attending Clinician Unavailable Paco BUSH, Mignon Gould Attending Clinician [phone] Francisco BUSH, Austyn Kelly Attending Clinician Martha HO, Katlyn Attending Clinician Unavailable Antoine Erwin RN Attending Clinician Unavailable Layne Zacarias MD Attending Clinician LAYNE ZACARIAS Attending Clinician Unavailable Jovanni Amador MD Attending Clinician JOVANNI AMADOR Attending Clinician Unavailable [facility], [facility] Care Attending Clinician Unavailable Nata Wong PA-C Attending Clinician Falguni Oneal Attending Clinician MEREDITH RUSHING Attending Clinician Unavailable Carlo Alva RN Attending Clinician Unavailable Tremayne Herrmann MD Attending Clinician Qi BUSH, Jackie Attending Clinician Lab, Adc Fam Pob I Attending Clinician Unavailable LILIA RICH Attending Clinician Unavailable LILIA RICH Attending Clinician Unavailable Lilia iRch DO Attending Clinician ELLIE DU Attending Clinician Unavailable Annabel Hinojosa Attending Clinician BRADY CARDOZO Admitting Clinician Unavailable MARIOLA BERRIOS Admitting Clinician Unavailable AUSTYN HANKS Admitting Clinician Unavailable MIGNON ANTONIO Admitting Clinician Unavailable BETI [place] Admitting Clinician Unavailable Brady Cardozo MD Admitting Clinician Jian ANGELES Admitting Clinician Unavailable Mariola Berrios MD Admitting Clinician Mignon Antonio MD Admitting Clinician [phone] Austyn Hanks MD Admitting Clinician Jackie Busby MD Admitting Clinician LILIA RICH Admitting Clinician Unavailable ELLIE DU Admitting Clinician Unavailable Payers Payer Name Policy Type Policy Number Effective Date Expiration Date Jose tobias [facility] [place] PLUS [id number] 2021 NO PREMIUM HMO/POS 00:00:00 MEDICARE PART A [id number] 2011 \T\ B 00:00:00 [employer] MEDICARE ADV [id number] 2020 00:00:00 Problems Condition Condition Condition Status [...] Added automatic ally from request for surgery [id number] Acquired Acquired Disease Active Overview: Un aisha involution involution 12-29 Formattin ity of al ptosis al ptosis 00:00: [place] of both of both 00 note Medical eyelids eyelids might be Branch different from the original. Added automatic ally from request for surgery [id number] Retained Retained Disease Active 2020-07 Overview: Un aisha lens lens 0-22 Formattin ity of matter of matter of 00:00: g of this [place] right eye right eye 00 note Medi lisa might be Branch different from the original. Added automatic ally from request for surgery [id number] Combined Combined Disease Active Overview: Un aisha forms of forms of 9-20 Formattin ity of age-relate age-relate 00:00: g of this [place] d cataract d cataract 00 note Me dical of both of both might be Branch eyes eyes different from the original. Added automatic ally from request for surgery [id number] Dizzy Dizzy Disease Active 2019-07 Univers spells spells 0-22 ity of 00:00: [place] [facility] Syncope Syncope Disease Active 2019-07 Univers 0-21 ity of 00:00: Medical Branch Anxiety Anxiety Disease Active Univers 1-22 ity of 00:00: Medical Branch Other Other Disease Active Univers chronic chronic 8-24 ity of pain pain 00:00: [place] [facility] Branch Diabetes Diabetes Disease Active Unive rs mellitus mellitus 1-29 ity of associated [place] with 00 Medical pancreatic pancreatic Br anch disease disease Abdominal Abdominal Disease Active Uni vers pain pain 1-24 ity of 00:00: [place] [facility] Branch Liver Liver Disease Recurre Univers abscess abscess nce 1- ity of 00:00: Medical Branch Paraesopha Paraesopha Disease Active U nivers geal fluid geal fluid 4-08 it y of [place] 00 [facility] Hyponatrem Hyponatrem Disease Active 2015- U nivers ia ia 4-04 ity of 00:00: Medical Branch Hyperlipid Hyperlipid Disease Active 2015-0 U nivers emia emia 4-04 ity of 00:00: [place] [facility] Essential Essential Disease Active Uni vers hypertensi hypertensi 4-04 it y of on on 00:00: [place] [facility] Normocytic Normocytic Disease Active 2016-0 U nivers anemia anemia 4-04 ity of 00:00: Medical Branch Thrombocyt Thrombocyt Disease Active 2015- U nivers osis osis 4-04 ity of 00:00: [place] [facility] Pneumobili Pneumobili Disease Active 2016-0 U nivers a a 4-03 ity of 00:00: [place] [facility] Biliary Biliary Disease Active Univers tract tract 10-31 ity of cancer cancer 00:00: [address] Allergies, Adverse Reactions, Alerts Allergy Allergy [...] ers NE INGREDI 10-30 ity of 00:00: [place] [facility] Social History Social Habit Start Date Stop Date Quantity Comments Source History of tobacco Cigarette Smoker University of use [facility] Exposure to 2022-07-08 2022-07-18 Not sure University SARS-CoV-2 (event) 00:00:00 13:08:00 [facility] Alcohol intake 2022-07-18 2022-07-18 0 /d University of 00:00:00 00:00:00 [facility] Cigarettes smoked 2022-04-26 2022-04-26 Univers ity of current (pack per 00:00:00 00:00:00 [facility] ) - Reported Branch Cigarette 2022-04-26 2022-04-26 University of pack-years 00:00:00 00:00:00 [facility] Tobacco use and 2022-04-26 2022-04-26 Smokeless Universit y of exposure 00:00:00 00:00:00 tobacco non-user [facility] [place] [facility] Sex [birth year] At [birth year] Universit y of 00:00:00 00:00:00 [facility] Smoking Status Start Date Stop Date Source Smokes tobacco daily 2022-04-26 00:00:00 Univers ity of [facility] Medications Ordered Filled Start Stop Current Ordering Indication Dosage Frequency Signature Comments Components Source Medication Medication Date Date Medication? Clinician (SIG) Name Name CILOSTAZOL 2021-07 Yes [id number] TAKE 1 U nivers 100 mg 2-23 TABLET BY ity of tablet 00:00: MOUTH IN [place] [address] THE Medical MORNING Branch AND IN THE EVENING amLODIPine 2021-07 Yes [id number] 10mg Take 1 U nivers 10 mg 2-15 tablet by ity of tablet 00:00: mouth in [place] the morning. Branch cilostazoL 2021-07 Yes [id number] 100mg Take 1 Univers 100 mg 2-15 tablet by ity of tablet 00:00: mouth in [place] the morning Branch and 1 tablet in the evening. amLODIPine 2021- Yes [id number] 10mg Take 1 U nivers 10 mg 2-15 tablet by ity of tablet 00:00: mouth in [place] the morning. Branch cilostazoL 2021-07 Yes [id number] 100mg Take 1 Univers 100 mg 2-15 tablet by ity of tablet 00:00: mouth in [place] the Medical morning Branch and 1 tablet in the evening. amLODIPine 2021- Yes [id number] 10mg Take 1 U nivers 10 mg 2-15 tablet by ity of tablet 00:00: mouth in [place] the morning. Branch cilostazoL 2021-07 Yes [id number] 100mg Take 1 Univers 100 mg 2-15 tablet by ity of tablet 00:00: mouth in [place] the morning Branch and 1 tablet in the evening. amLODIPine 2021-07 Yes [id number] 10mg Take 1 U nivers 10 mg 2-15 tablet by ity of tablet 00:00: mouth in [place] the morning. Branch cilostazoL 2021-07 Yes [id number] 100mg Take 1 Univers 100 mg 2-15 tablet by ity of tablet 00:00: mouth in [place] the morning Branch and 1 tablet in the evening. amLODIPine 2021- Yes [id number] 10mg Take 1 U nivers 10 mg 2-15 tablet by ity of tablet 00:00: mouth in [place] the morning. Branch cilostazoL 2021-07 Yes [id number] 100mg Take 1 Univers 100 mg 2-15 tablet by ity of tablet 00:00: mouth in [place] the morning Branch and 1 tablet in the evening. amLODIPine 2021-1 Yes [id number] 10mg Take 1 U nivers 10 mg 2-15 tablet by ity of tablet 00:00: mouth in [place] the morning. Branch cilostazoL 2021- Yes [id number] 100mg Take 1 Univers 100 mg 2-15 tablet by ity of tablet 00:00: mouth in [place] the Medical morning Branch and 1 tablet in the evening. amLODIPine 2021-07 Yes [id number] 10mg Take 1 U nivers 10 mg 2-15 tablet by ity of tablet 00:00: mouth in [place] 00 the Medical morning. Branch cilostazoL 2021-07- No [id number] 100mg Take 1 Univers 100 mg 2-15 12-23 tablet by ity of tablet 00:00: 00:00 mouth in [place] 00 :00 the Medical morning Branch and 1 tablet in the evening. FLUTICASONE 2021-07 Yes [id number] SPRAY 2 Univers PROPIONATE 2-07 SPRAYS ity of 50 00:00: INTO EACH [place] mcg/actuati 00 NOSTRIL Medic al on nasal EVERY DAY Branch spray FLUTICASONE 2021-07 Yes [id number] SPRAY 2 Univers PROPIONATE 2-07 SPRAYS ity of 50 00:00: INTO EACH [place] mcg/actuati 00 NOSTRIL Medic al on nasal EVERY DAY Branch spray FLUTICASONE 2021-07 Yes [id number] SPRAY 2 Univers PROPIONATE 2-07 SPRAYS ity of 50 00:00: INTO EACH [place] mcg/actuati 00 NOSTRIL Medic al on nasal EVERY DAY Branch spray FLUTICASONE 2021-07 Yes [id number] SPRAY 2 Univers PROPIONATE 2-07 SPRAYS ity of 50 00:00: INTO EACH [place] mcg/actuati 00 NOSTRIL Medic al on nasal EVERY DAY Branch spray FLUTICASONE 2021-07 Yes [id number] SPRAY 2 Univers PROPIONATE 2-07 SPRAYS ity of 50 00:00: INTO EACH [place] mcg/actuati 00 NOSTRIL Medic al on nasal EVERY DAY Branch spray FLUTICASONE 2021-07 Yes [id number] SPRAY 2 Univers PROPIONATE 2-07 SPRAYS ity of 50 00:00: INTO EACH [place] mcg/actuati 00 NOSTRIL Medic al on nasal EVERY DAY Branch spray FLUTICASONE 2021-07 Yes [id number] SPRAY 2 Univers PROPIONATE 2-07 SPRAYS ity of 50 00:00: INTO EACH [place] mcg/actuati 00 NOSTRIL Medic al on nasal EVERY DAY Branch spray FLUTICASONE 2021-07 Yes [id number] SPRAY 2 Univers PROPIONATE 2-07 SPRAYS ity of 50 00:00: INTO EACH [place] mcg/actuati 00 NOSTRIL Medic al on nasal EVERY DAY Branch spray FLUTICASONE 2021-07 Yes [id number] SPRAY 2 Univers PROPIONATE 2-07 SPRAYS ity of 50 00:00: INTO EACH [place] mcg/actuati 00 NOSTRIL Medic al on nasal EVERY DAY Branch spray FLUTICASONE 2021-07 Yes [id number] SPRAY 2 Univers PROPIONATE 2-07 SPRAYS ity of 50 00:00: INTO EACH [place] mcg/actuati 00 NOSTRIL Medic al on nasal EVERY DAY Branch spray FLUTICASONE 2021-07 Yes [id number] SPRAY 2 Univers PROPIONATE 2-07 SPRAYS ity of 50 00:00: INTO EACH [place] mcg/actuati 00 NOSTRIL Medic al on nasal EVERY DAY Branch spray FLUTICASONE 2021-07 Yes [id number] SPRAY 2 Univers PROPIONATE 2-07 SPRAYS ity [...] Indication s: chronic pain CYCLOBENZAP 2021- Yes [id number] TAKE 1 Univers RINE 10 mg 1-23 TABLET BY ity of tablet 00:00: MOUTH [place] 00 THREE Medical TIMES A Branch DAY NEEDED FOR MUSCLE SPASMS CYCLOBENZAP 2021- Yes [id number] TAKE 1 Univers RINE 10 mg 1-23 TABLET BY ity of tablet 00:00: MOUTH [place] 00 THREE Medical TIMES A Branch DAY NEEDED FOR MUSCLE SPASMS CYCLOBENZAP 2021- Yes [id number] TAKE 1 Univers RINE 10 mg 1-23 TABLET BY ity of tablet 00:00: MOUTH [place] 00 THREE Medical TIMES A Branch DAY NEEDED FOR MUSCLE SPASMS CYCLOBENZAP 2021-1 Yes [id number] TAKE 1 Univers RINE 10 mg 1-23 TABLET BY ity of tablet 00:00: MOUTH [place] 00 THREE Medical TIMES A Branch DAY NEEDED FOR MUSCLE SPASMS CYCLOBENZAP 2021-1 Yes [id number] TAKE 1 Univers RINE 10 mg 1-23 TABLET BY ity of tablet 00:00: MOUTH [place] 00 THREE Medical TIMES A Branch DAY NEEDED FOR MUSCLE SPASMS CYCLOBENZAP 2-1 Yes [id number] TAKE 1 Univers RINE 10 mg 1-23 TABLET BY ity of tablet 00:00: MOUTH [place] 00 THREE Medical TIMES A Branch DAY NEEDED FOR MUSCLE SPASMS CYCLOBENZAP 2-1 Yes [id number] TAKE 1 Univers RINE 10 mg 1-23 TABLET BY ity of tablet 00:00: MOUTH [place] 00 THREE Medical TIMES A Branch DAY NEEDED FOR MUSCLE SPASMS CYCLOBENZAP 2-1 Yes [id number] TAKE 1 Univers RINE 10 mg 1-23 TABLET BY ity of tablet 00:00: MOUTH [place] 00 THREE Medical TIMES A Branch DAY NEEDED FOR MUSCLE SPASMS CYCLOBENZAP 2-1 Yes [id number] TAKE 1 Univers RINE 10 mg 1-23 TABLET BY ity of tablet 00:00: MOUTH [place] 00 THREE Medical TIMES A Branch DAY NEEDED FOR MUSCLE SPASMS CYCLOBENZAP 2021- Yes [id number] TAKE 1 Univers RINE 10 mg 1-23 TABLET BY ity of tablet 00:00: MOUTH [place] 00 THREE Medical TIMES A Branch DAY NEEDED FOR MUSCLE SPASMS CYCLOBENZAP 2021- Yes [id number] TAKE 1 Univers RINE 10 mg 1-23 TABLET BY ity of tablet 00:00: MOUTH [place] 00 THREE Medical TIMES A Branch DAY NEEDED FOR MUSCLE SPASMS CYCLOBENZAP 2021- Yes [id number] TAKE 1 Univers RINE 10 mg 1-23 TABLET BY ity of tablet 00:00: MOUTH [place] 00 THREE Medical TIMES A Branch DAY NEEDED FOR MUSCLE SPASMS CYCLOBENZAP 2021- Yes [id number] TAKE 1 Univers RINE 10 mg 1-23 TABLET BY ity of tablet 00:00: MOUTH [place] 00 THREE Medical TIMES A Branch DAY NEEDED FOR MUSCLE SPASMS CYCLOBENZAP 2021- Yes [id number] TAKE 1 Univers RINE 10 mg 1-23 TABLET BY ity of tablet 00:00: MOUTH [place] 00 THREE Medical TIMES A Branch DAY NEEDED FOR MUSCLE SPASMS CYCLOBENZAP 2021- Yes [id number] TAKE 1 Univers RINE 10 mg 1-23 TABLET BY ity of tablet 00:00: MOUTH [place] 00 THREE Medical TIMES A Branch DAY NEEDED FOR MUSCLE SPASMS CYCLOBENZAP 2021- Yes [id number] TAKE 1 Univers RINE 10 mg 1-23 TABLET BY ity of tablet 00:00: MOUTH [place] 00 THREE Medical TIMES A Branch DAY NEEDED FOR MUSCLE SPASMS lipase-prot 2021- Yes [id number] TAKE 1 Univers ease-amylas 1-17 CAPSULE BY it y of e (CREON) 00:00: MOUTH 3 [place] 12,000-38,0 00 (THREE) Medic al 00 -60,000 TIMES Branch unit DAILY WITH capsule MEALS. lipase-prot 2021- Yes [id number] TAKE 1 Univers ease-amylas 1-17 CAPSULE BY it y of e (CREON) 00:00: MOUTH 3 [place] 12,000-38,0 00 (THREE) Medic al 00 -60,000 TIMES Branch unit DAILY WITH capsule MEALS. lipase-prot 2021- Yes [id number] TAKE 1 Univers ease-amylas 1-17 CAPSULE BY it y of e (CREON) 00:00: MOUTH 3 [place] 12,000-38,0 00 (THREE) Medic al 00 -60,000 TIMES Branch unit DAILY WITH capsule MEALS. lipase-prot 2021-07 Yes [id number] TAKE 1 Univers ease-amylas 1-17 CAPSULE BY it y of e (CREON) 00:00: MOUTH 3 [place] 12,000-38,0 00 (THREE) Medic al 00 -60,000 TIMES Branch unit DAILY WITH capsule MEALS. lipase-prot 2021-07 Yes [id number] TAKE 1 Univers ease-amylas 1-17 CAPSULE BY it y of e (CREON) 00:00: MOUTH 3 [place] 12,000-38,0 00 (THREE) Medic al 00 -60,000 TIMES Branch unit DAILY WITH capsule MEALS. lipase-prot 2021-07 Yes [id number] TAKE 1 Univers ease-amylas 1-17 CAPSULE BY it y of e (CREON) 00:00: MOUTH 3 [place] 12,000-38,0 00 (THREE) Medic al 00 -60,000 TIMES Branch unit DAILY WITH capsule MEALS. lipase-prot 2021-07 Yes [id number] TAKE 1 Univers ease-amylas 1-17 CAPSULE BY it y of e (CREON) 00:00: MOUTH 3 [place] 12,000-38,0 00 (THREE) Medic al 00 -60,000 TIMES Branch unit DAILY WITH capsule MEALS. lipase-prot 2021-07 Yes [id number] TAKE 1 Univers ease-amylas 1-17 CAPSULE BY it y of e (CREON) 00:00: MOUTH 3 [place] 12,000-38,0 00 (THREE) Medic al 00 -60,000 TIMES Branch unit DAILY WITH capsule MEALS. lipase-prot 2021-07 Yes [id number] TAKE 1 Univers ease-amylas 1-17 CAPSULE BY it y of e (CREON) 00:00: MOUTH 3 [place] 12,000-38,0 00 (THREE) Medic al 00 -60,000 TIMES Branch unit DAILY WITH capsule MEALS. lipase-prot 2021-07 Yes [id number] TAKE 1 Univers ease-amylas 1-17 CAPSULE BY it y of e (CREON) 00:00: MOUTH 3 [place] 12,000-38,0 00 (THREE) Medic al 00 -60,000 TIMES Branch unit DAILY WITH capsule MEALS. lipase-prot 2021-07 Yes [id number] TAKE 1 Univers ease-amylas 1-17 CAPSULE BY it y of e (CREON) 00:00: MOUTH 3 [place] 12,000-38,0 00 (THREE) Medic al 00 -60,000 TIMES Branch unit DAILY WITH capsule MEALS. lipase-prot 2021-07 Yes [id number] TAKE 1 Univers ease-amylas 1-17 CAPSULE BY it y of e (CREON) 00:00: MOUTH 3 [place] 12,000-38,0 00 (THREE) Medic al 00 -60,000 TIMES Branch unit DAILY WITH capsule MEALS. lipase-prot 2021-07 Yes [id number] TAKE 1 Univers ease-amylas 1-17 CAPSULE BY it y of e (CREON) 00:00: MOUTH 3 [place] 12,000-38,0 00 (THREE) Medic al 00 -60,000 TIMES Branch unit DAILY WITH capsule MEALS. lipase-prot 2021-07 Yes [id number] TAKE 1 Univers ease-amylas 1-17 CAPSULE BY it y of e (CREON) 00:00: MOUTH 3 [place] 12,000-38,0 00 (THREE) Medic al 00 -60,000 TIMES Branch unit DAILY WITH capsule MEALS. lipase-prot 2021-07 Yes [id number] TAKE 1 Univers ease-amylas 1-17 CAPSULE BY it y of e (CREON) 00:00: MOUTH 3 [place] 12,000-38,0 00 (THREE) Medic al 00 -60,000 TIMES Branch unit DAILY WITH capsule MEALS. lipase-prot 2021-07 Yes [id number] TAKE 1 Univers ease-amylas 1-17 CAPSULE BY it y of e (CREON) 00:00: MOUTH 3 [place] 12,000-38,0 00 (THREE) Medic al 00 -60,000 TIMES Branch unit DAILY WITH capsule MEALS. lipase-prot 2021-07 Yes [id number] TAKE 1 Univers ease-amylas 1-17 CAPSULE BY it y of e (CREON) 00:00: MOUTH 3 [place] 12,000-38,0 00 (THREE) Medic al 00 -60,000 TIMES Branch unit DAILY WITH capsule MEALS. tadalafiL 2021-07 Yes [id number] TAKE ONE Univers 20 mg 1-10 (1) TABLET ity of tablet 00:00: BY MOUTH [place] 00 NEEDED Medical FOR Branch ERECTILE DYSFUNCTIO N. tadalafiL 2021-07 Yes [id number] TAKE ONE Univers 20 mg 1-10 (1) TABLET ity of tablet 00:00: BY MOUTH [place] 00 NEEDED Medical FOR Branch ERECTILE DYSFUNCTIO N. tadalafiL 2021- Yes [id number] TAKE ONE Univers 20 mg 1-10 (1) TABLET ity of tablet 00:00: BY MOUTH [place] 00 NEEDED Medical FOR Branch ERECTILE DYSFUNCTIO N. tadalafiL 2-1 Yes [id number] TAKE ONE Univers 20 mg 1-10 (1) TABLET ity of tablet 00:00: BY MOUTH [place] 00 NEEDED Medical FOR Branch ERECTILE DYSFUNCTIO N. tadalafiL 2-1 Yes [id number] TAKE ONE Univers 20 mg 1-10 (1) TABLET ity of tablet 00:00: BY MOUTH [place] 00 NEEDED Medical FOR Branch ERECTILE DYSFUNCTIO N. tadalafiL 2021-1 Yes [id number] TAKE ONE Univers 20 mg 1-10 (1) TABLET ity of tablet 00:00: BY MOUTH [place] 00 NEEDED Medical FOR Branch ERECTILE DYSFUNCTIO N. tadalafiL 2021-1 Yes [id number] TAKE ONE Univers 20 mg 1-10 (1) TABLET ity of tablet 00:00: BY MOUTH [place] 00 NEEDED Medical FOR Branch ERECTILE DYSFUNCTIO N. tadalafiL 2021- Yes [id number] TAKE ONE Univers 20 mg 1-10 (1) TABLET ity of tablet 00:00: BY MOUTH [place] 00 NEEDED Medical FOR Branch ERECTILE DYSFUNCTIO N. tadalafiL 2-1 Yes [id number] TAKE ONE Univers 20 mg 1-10 (1) TABLET ity of tablet 00:00: BY MOUTH [place] 00 NEEDED Medical FOR Branch ERECTILE DYSFUNCTIO N. tadalafiL 2-1 Yes [id number] TAKE ONE Univers 20 mg 1-10 (1) TABLET ity of tablet 00:00: BY MOUTH [place] 00 NEEDED Medical FOR Branch ERECTILE DYSFUNCTIO N. tadalafiL 2-1 Yes [id number] TAKE ONE Univers 20 mg 1-10 (1) TABLET ity of tablet 00:00: BY MOUTH [place] 00 NEEDED Medical FOR Branch ERECTILE DYSFUNCTIO N. tadalafiL 2-1 Yes [id number] TAKE ONE Univers 20 mg 1-10 (1) TABLET ity of tablet 00:00: BY MOUTH [place] 00 NEEDED Medical FOR Branch ERECTILE DYSFUNCTIO N. tadalafiL 2021-07 Yes [id number] TAKE ONE Univers 20 mg 1-10 (1) TABLET ity of tablet 00:00: BY MOUTH [place] 00 NEEDED Medical FOR Branch ERECTILE DYSFUNCTIO N. tadalafiL 2021-07 Yes [id number] TAKE ONE Univers 20 mg 1-10 (1) TABLET ity of tablet 00:00: BY MOUTH [place] 00 NEEDED Medical FOR Branch ERECTILE DYSFUNCTIO N. tadalafiL 2021-07 Yes [id number] TAKE ONE Univers 20 mg 1-10 (1) TABLET ity of tablet 00:00: BY MOUTH [place] 00 NEEDED Medical FOR Branch ERECTILE DYSFUNCTIO N. tadalafiL 2021-07 Yes [id number] TAKE ONE Univers 20 mg 1-10 (1) TABLET ity of tablet 00:00: BY MOUTH [place] 00 NEEDED Medical FOR Branch ERECTILE DYSFUNCTIO N. tadalafiL 2021-07 Yes [id number] TAKE ONE Univers 20 mg 1-10 (1) TABLET ity of tablet 00:00: BY MOUTH [place] 00 NEEDED Medical FOR Branch ERECTILE DYSFUNCTIO N. tadalafiL 2021-07 Yes [id number] TAKE ONE Univers 20 mg 1-10 (1) TABLET ity of tablet 00:00: BY MOUTH [place] 00 NEEDED Medical FOR Branch ERECTILE DYSFUNCTIO N. prednisoLON 2021-07 Yes [id number] 1[drp] Place 1 Univers E acetate 08-07 [id number] Drop in ity o f (PRED 00:00: right eye [place] FORTE) 1 % 00 in the Medical ophthalmic morning Branch suspension and 1 Drop drops in the evening. prednisoLON 2021-07 Yes [id number] 1[drp] Place 1 Univers E acetate 1-08 [id number] Drop in ity o f (PRED 00:00: right eye [place] FORTE) 1 % 00 in the Medical ophthalmic morning Branch suspension and 1 Drop drops in the evening. prednisoLON 2021-07 Yes [id number] 1[drp] Place 1 Univers E acetate 1-08 [id number] Drop in ity o f (PRED 00:00: right eye [place] FORTE) 1 % 00 in the Medical ophthalmic morning Branch suspension and 1 Drop drops in the evening. prednisoLON 2021-07 Yes [id number] 1[drp] Place 1 Univers E acetate 1-08 [id number] Drop in ity o f (PRED 00:00: right eye [place] FORTE) 1 % 00 in the Medical ophthalmic morning Branch suspension and 1 Drop drops in the evening. prednisoLON 2021-07 [address] [id number] 1[drp] Place 1 Univers E acetate 1-08 [id number] Drop in ity o f (PRED 00:00: right eye [place] FORTE) 1 % 00 in the Medical ophthalmic morning Branch suspension and 1 Drop drops in the evening. prednisoLON 2021-07 Yes [id number] 1[drp] Place 1 Univers E acetate 1-08 [id number] Drop in ity o f (PRED 00:00: right eye [place] FORTE) 1 % 00 in the Medical ophthalmic morning Branch suspension and 1 Drop drops in the evening. prednisoLON 2021-07 Yes [id number] 1[drp] Place 1 Univers E acetate 1-08 [id number] Drop in ity o f (PRED 00:00: right eye [place] FORTE) 1 % 00 in the Medical ophthalmic morning Branch suspension and 1 Drop drops in the evening. prednisoLON 2021-07 Yes [id number] 1[drp] Place 1 Univers E acetate 1-08 [id number] Drop in ity o f (PRED 00:00: right eye [place] FORTE) 1 % 00 in the Medical ophthalmic morning Branch suspension and 1 Drop drops in the evening. prednisoLON 2021-07 Yes [id number] 1[drp] Place 1 Univers E acetate 1-08 [id number] Drop in ity o f (PRED 00:00: right eye [place] FORTE) 1 % 00 in the Medical ophthalmic morning Branch suspension and 1 Drop drops in the evening. prednisoLON 2021-07 Yes [id number] 1[drp] Place 1 Univers E acetate 1-08 [id number] Drop in ity o f (PRED 00:00: right eye [place] FORTE) 1 % 00 in the Medical ophthalmic morning Branch suspension and 1 Drop drops in the evening. prednisoLON 2021-07 Yes [id number] 1[drp] Place 1 Univers E acetate 1-08 [id number] Drop in ity o f (PRED 00:00: right eye [place] FORTE) 1 % 00 in the Medical ophthalmic morning Branch suspension and 1 Drop drops in the evening. prednisoLON 2021-07 Yes [id number] 1[drp] Place 1 Univers E acetate 1-08 [id number] Drop in ity o f (PRED 00:00: right eye [place] FORTE) 1 % 00 in the Medical ophthalmic morning Branch suspension and 1 Drop drops in the evening. prednisoLON 2021-07 Yes [id number] 1[drp] Place 1 Univers E acetate 1-08 [id number] Drop in ity o f (PRED 00:00: right eye [place] FORTE) 1 % 00 in the Medical ophthalmic morning Branch suspension and 1 Drop drops in the evening. prednisoLON 2021-07 Yes [id number] 1[drp] Place 1 Univers E acetate 1-08 [id number] Drop in ity o f (PRED 00:00: right eye [place] FORTE) 1 % 00 in the Medical ophthalmic morning Branch suspension and 1 Drop drops in the evening. prednisoLON 2021-07 Yes [id number] 1[drp] Place 1 Univers E acetate 1-08 [id number] Drop in ity o f (PRED 00:00: right eye [place] FORTE) 1 % 00 in the Medical ophthalmic morning Branch suspension and 1 Drop drops in the evening. prednisoLON 2021-07 Yes [id number] 1[drp] Place 1 Univers E acetate 1-08 [id number] Drop in ity o f (PRED 00:00: right eye [place] FORTE) 1 % 00 in the Medical ophthalmic morning Branch suspension and 1 Drop drops in the evening. prednisoLON 2021-07 Yes [id number] 1[drp] Place 1 [facility] E acetate 1-08 [id number] Drop in ity o f (PRED 00:00: right eye [place] FORTE) 1 % 00 in the Medical ophthalmic morning Branch suspension and 1 Drop drops in the evening. prednisoLON 2021-07 Yes [id number] 1[drp] Place 1 [facility] E acetate 1-08 [id number] Drop in ity o f (PRED 00:00: right eye [place] FORTE) 1 % 00 in the Medical ophthalmic morning Branch suspension and 1 Drop drops in the evening. prednisoLON 2021-07 Yes [id number] 1[drp] Place 1 [facility] E acetate 1-08 [id number] Drop in ity o f (PRED 00:00: right eye [place] FORTE) 1 % 00 in the Medical ophthalmic morning Branch suspension and 1 Drop drops in the evening. LOVASTATIN 2021-07 Yes TAKE 1 [facility] 20 mg 1-04 TABLET BY ity of tablet 00:00: MOUTH 00 EVERYDAY Medical AT BEDTIME [place] LOVASTATIN 2021-07 Yes TAKE 1 [facility] 20 mg 1-04 TABLET BY ity of tablet 00:00: MOUTH EVERYDAY Medical AT BEDTIME [place] LOVASTATIN 2021-07 Yes TAKE 1 [facility] 20 mg 1-04 TABLET BY ity of tablet 00:00: MOUTH EVERYDAY Medical AT BEDTIME [place] LOVASTATIN 2021-07 Yes TAKE 1 [facility] 20 mg 1-04 TABLET BY ity of tablet 00:00: MOUTH EVERYDAY Medical AT BEDTIME [place] LOVASTATIN 2021-07 Yes TAKE 1 [facility] 20 mg 1-04 TABLET BY ity of tablet 00:00: MOUTH EVERYDAY Medical AT BEDTIME [place] LOVASTATIN 2021-07 Yes TAKE 1 [facility] 20 mg 1-04 TABLET BY ity of tablet 00:00: MOUTH EVERYDAY Medical AT BEDTIME [place] LOVASTATIN 2021-07 Yes TAKE 1 [facility] 20 mg 1-04 TABLET BY ity of tablet 00:00: MOUTH EVERYDAY Medical AT BEDTIME [place] LOVASTATIN 2021-07 Yes TAKE 1 [facility] 20 mg 1-04 TABLET BY ity of tablet 00:00: MOUTH 00 EVERYDAY Medical AT BEDTIME [place] LOVASTATIN 2021-07 Yes TAKE 1 [facility] 20 mg 1-04 TABLET BY ity of tablet 00:00: MOUTH EVERYDAY Medical AT BEDTIME [place] LOVASTATIN 2021-07 Yes TAKE 1 [facility] 20 mg 1-04 TABLET BY ity of tablet 00:00: MOUTH EVERYDAY Medical AT BEDTIME [place] LOVASTATIN 2021-07 Yes TAKE 1 [facility] 20 mg 1-04 TABLET BY ity of tablet 00:00: MOUTH EVERYDAY Medical AT BEDTIME [place] LOVASTATIN 2021-07 Yes TAKE 1 [facility] 20 mg 1-04 TABLET BY ity of tablet 00:00: MOUTH 00 EVERYDAY Medical AT BEDTIME [place] LOVASTATIN 2021-07 Yes TAKE 1 [facility] 20 mg 1-04 TABLET BY ity of tablet 00:00: MOUTH 00 EVERYDAY Medical AT BEDTIME [place] LOVASTATIN 2021-07 Yes TAKE 1 Unive rs [...] Indication s: chronic pain CYCLOBENZAP 2021-07 Yes [id number] TAKE 1 [facility] RINE 10 mg 0-24 TABLET BY ity of tablet 00:00: MOUTH [place] 00 THREE Medical TIMES A Branch DAY NEEDED FOR MUSCLE SPASMS CYCLOBENZAP 2021-07 Yes [id number] TAKE 1 [facility] RINE 10 mg 0-24 TABLET BY ity of tablet 00:00: MOUTH [place] 00 THREE Medical TIMES A Branch DAY NEEDED FOR MUSCLE SPASMS CYCLOBENZAP 2021-07 Yes [id number] TAKE 1 [facility] RINE 10 mg 0-24 TABLET BY ity of tablet 00:00: MOUTH [place] 00 THREE Medical TIMES A Branch DAY NEEDED FOR MUSCLE SPASMS CYCLOBENZAP 2021-07 Yes [id number] TAKE 1 [facility] RINE 10 mg 0-24 TABLET BY ity of tablet 00:00: MOUTH [place] 00 THREE Medical TIMES A Branch DAY NEEDED FOR MUSCLE SPASMS CYCLOBENZAP 2021-07 Yes [id number] TAKE 1 [facility] RINE 10 mg 0-24 TABLET BY ity of tablet 00:00: MOUTH [place] 00 THREE Medical TIMES A Branch DAY NEEDED FOR MUSCLE SPASMS CYCLOBENZAP 2021-07 Yes [id number] TAKE 1 [facility] RINE 10 mg 0-24 TABLET BY ity of tablet 00:00: MOUTH [place] 00 THREE Medical TIMES A Branch DAY NEEDED FOR MUSCLE SPASMS CYCLOBENZAP 1 Yes [id number] TAKE 1 [facility] RINE 10 mg 0-24 TABLET BY ity of tablet 00:00: MOUTH [place] 00 THREE Medical TIMES A Branch DAY NEEDED FOR MUSCLE SPASMS CYCLOBENZAP 2021-07 2022- No [id number] TAKE 1 [facility] RINE 10 mg 0-24 11-23 TABLET BY ity of tablet 00:00: 00:00 MOUTH [place] 00 :00 THREE Medical TIMES A Branch DAY NEEDED FOR MUSCLE SPASMS amLODIPine 2021-07 Yes [id number] 5mg Take 1 [facility] n[facility] 5 mg tablet 0-18 tablet by ity of 00:00: mouth in [place] the Medical morning. Branch amLODIPine 2021-07 Yes [id number] 5mg Take 1 [facility] n[facility] 5 mg tablet 0-18 tablet by ity of 00:00: mouth in [place] the Medical morning. Branch amLODIPine 2021-07 Yes [id number] 5mg Take 1 [facility] 5 mg tablet 0-18 tablet by ity of 00:00: mouth in [place] the Medical morning. Branch amLODIPine 2021- Yes [id number] 5mg Take 1 [facility] 5 mg tablet 0-18 tablet by ity of 00:00: mouth in [place] the Medical morning. Branch amLODIPine 2021- Yes [id number] 5mg Take 1 [facility] 5 mg tablet 0-18 tablet by ity of 00:00: mouth in [place] the Medical morning. Branch amLODIPine 2021-1 Yes [id number] 5mg Take 1 [facility] 5 mg tablet 0-18 tablet by ity of 00:00: mouth in [place] the Medical morning. Branch amLODIPine 2021-1 Yes [id number] 5mg Take 1 [facility] 5 mg tablet 0-18 tablet by ity of 00:00: mouth in [place] the Medical morning. Branch amLODIPine 2021-1 Yes [id number] 5mg Take 1 [facility] 5 mg tablet 0-18 tablet by ity of 00:00: mouth in [place] the Medical morning. Branch amLODIPine 2021-07 Yes [id number] 5mg Take 1 [facility] 5 mg tablet 0-18 tablet by ity of 00:00: mouth in [place] the Medical morning. Branch amLODIPine 2021-07 Yes [id number] 5mg Take 1 [facility] 5 mg tablet 0-18 tablet by ity of 00:00: mouth in [place] the Medical morning. Branch amLODIPine 2021-07 Yes [id number] 5mg Take 1 [facility] 5 mg tablet 0-18 tablet by ity of 00:00: mouth in [place] the Medical morning. Branch amLODIPine 2021-07 Yes [id number] 5mg Take 1 [facility] 5 mg tablet 0-18 tablet by ity of 00:00: mouth in [place] the Medical morning. Branch amLODIPine 2021- Yes [id number] 5mg Take 1 [facility] 5 mg tablet 0-18 tablet by ity of 00:00: mouth in [place] the Medical morning. Branch amLODIPine 2021-07 Yes [id number] 5mg Take 1 [facility] 5 mg tablet 0-18 tablet by ity of 00:00: mouth in [place] the Medical morning. Branch amLODIPine 2021-07 Yes [id number] 5mg Take 1 [facility] 5 mg tablet 0-18 tablet by ity of 00:00: mouth in [place] the Medical morning. Branch amLODIPine 2021-07 Yes [id number] 5mg Take 1 [facility] 5 mg tablet 0-18 tablet by ity of 00:00: mouth in [place] the Medical morning. Branch amLODIPine 2021- Yes [id number] 5mg Take 1 [facility] 5 mg tablet 0-18 tablet by ity of 00:00: mouth in [place] the Medical morning. Branch amLODIPine 2021-07 Yes [id number] 5mg Take 1 [facility] 5 mg tablet 0-18 tablet by ity of 00:00: mouth in [place] the Medical morning. Branch amLODIPine 2021-2021- No [id number] 5mg Take 1 [facility] 5 mg tablet 0-18 12-15 tablet by it y of 00:00: 00:00 mouth in [place] 00 :00 the Medical morning. Branch amLODIPine 2021-2021- No [id number] 5mg Take 1 [facility] 5 mg tablet 0-18 12-15 tablet by it y of 00:00: 00:00 mouth in [place] 00 :00 the Medical morning. Branch NAPROXEN 2021-07 Yes [id number] TAKE BY [facility] 500 mg 0-13 [id number] MOUTH 1 ity of tablet 00:00: TABLET IN [place] 00 MORNING Medical AND IN THE Branch EVENING WITH MEALS NAPROXEN 2021-07 Yes [id number] TAKE BY [facility] 500 mg 0-13 [id number] MOUTH 1 ity of tablet 00:00: TABLET IN [place] 00 MORNING Medical AND IN THE Branch EVENING WITH MEALS NAPROXEN 2021-07 Yes [id number] TAKE BY [facility] 500 mg 0-13 [id number] MOUTH 1 ity of tablet 00:00: TABLET IN [place] 00 MORNING Medical AND IN THE Branch EVENING WITH MEALS NAPROXEN 2021-07 Yes [id number] TAKE BY [facility] 500 mg 0-13 [id number] MOUTH 1 ity of tablet 00:00: TABLET IN [place] 00 MORNING Medical AND IN THE Branch EVENING WITH MEALS NAPROXEN 2021-07 Yes [id number] TAKE BY [facility] 500 mg 0-13 [id number] MOUTH 1 ity of tablet 00:00: TABLET IN [place] 00 MORNING Medical AND IN THE Branch EVENING WITH MEALS NAPROXEN 2021-07 Yes [id number] TAKE BY [facility] 500 mg 0-13 [id number] MOUTH 1 ity of tablet 00:00: TABLET IN [place] 00 MORNING Medical AND IN THE Branch EVENING WITH MEALS NAPROXEN 2021-07 Yes [id number] TAKE BY [facility] 500 mg 0-13 [id number] MOUTH 1 ity of tablet 00:00: TABLET IN [place] 00 MORNING Medical AND IN THE Branch EVENING WITH MEALS NAPROXEN 2021-07 Yes [id number] TAKE BY [facility] 500 mg 0-13 [id number] MOUTH 1 ity of tablet 00:00: TABLET IN [place] 00 MORNING Medical AND IN THE Branch EVENING WITH MEALS NAPROXEN 2021-07 Yes [id number] TAKE BY [facility] 500 mg 0-13 [id number] MOUTH 1 ity of tablet 00:00: TABLET IN [place] 00 MORNING Medical AND IN THE Branch EVENING WITH MEALS NAPROXEN 2021-07 Yes [id number] TAKE BY [facility] 500 mg 0-13 [id number] MOUTH 1 ity of tablet 00:00: TABLET IN [place] 00 MORNING Medical AND IN THE Branch EVENING WITH MEALS NAPROXEN 2021-07 Yes [id number] TAKE BY [facility] 500 mg 0-13 [id number] MOUTH 1 ity of tablet 00:00: TABLET IN [place] 00 MORNING Medical AND IN THE Branch EVENING WITH MEALS NAPROXEN 2021-07 Yes [id number] TAKE BY [facility] 500 mg 0-13 [id number] MOUTH 1 ity of tablet 00:00: TABLET IN [place] 00 MORNING Medical AND IN THE Branch EVENING WITH MEALS NAPROXEN 2021-07 Yes [id number] TAKE BY [facility] 500 mg 0-13 [id number] MOUTH 1 ity of tablet 00:00: TABLET IN [place] 00 MORNING Medical AND IN THE Branch EVENING WITH MEALS NAPROXEN 2021-07 Yes [id number] TAKE BY [facility] 500 mg 0-13 [id number] MOUTH 1 ity of tablet 00:00: TABLET IN [place] 00 MORNING Medical AND IN THE Branch EVENING WITH MEALS NAPROXEN 2021-07 Yes [id number] TAKE BY [facility] 500 mg 0-13 [id number] MOUTH 1 ity of tablet 00:00: TABLET IN [place] 00 MORNING Medical AND IN THE Branch EVENING WITH MEALS NAPROXEN 2021-07 Yes [id number] TAKE BY [facility] 500 mg 0-13 [id number] MOUTH 1 ity of tablet 00:00: TABLET IN [place] 00 MORNING Medical AND IN THE Branch EVENING WITH MEALS NAPROXEN 2021-07 Yes [id number] TAKE BY [facility] 500 mg 0-13 [id number] MOUTH 1 ity of tablet 00:00: TABLET IN [place] 00 MORNING Medical AND IN THE Branch EVENING WITH MEALS NAPROXEN 2021-07 Yes [id number] TAKE BY [facility] 500 mg 0-13 [id number] MOUTH 1 ity of tablet 00:00: TABLET IN [place] 00 MORNING Medical AND IN THE Branch EVENING WITH MEALS NAPROXEN 2021-07 Yes [id number] TAKE BY [facility] 500 mg 0-13 [id number] MOUTH 1 ity of tablet 00:00: TABLET IN [place] 00 MORNING Medical AND IN THE Branch EVENING WITH MEALS NAPROXEN 2021-07 No [id number] TAKE BY [facility] 500 mg 0-13 12-01 [id number] MOUTH 1 ity of tablet 00:00: 00:00 TABLET IN [place] 00 :00 MORNING Medical AND IN THE Branch EVENING WITH MEALS LOSARTAN 2021-07 Yes TAKE 1 [facility] 100 mg 0-07 TABLET BY ity of tablet 00:00: MOUTH [place] 00 EVERY DAY Medical Branch LOSARTAN 2021-07 Yes TAKE 1 [facility] 100 mg 0-07 TABLET BY ity of tablet 00:00: MOUTH [place] 00 EVERY DAY Medical Branch LOSARTAN 2022-1 [...] Indication s: chronic pain tc 2021- No [id number] 42.7mCi 42.7 [facility] 99m-tetrofo 04-21 millicurie i ty of smin 15:30: 15:20 , [place] (MYOVIEW) 00 :00 Intravenou Medi lisa injection s, ONCE, 1 Bran ch 42.7 dose, On millicurie Bridget 04/21/22 at 1030, Routine regadenoson 2021- No [id number] .4mg 0.4 mg, IV [facility] (LEXISCAN) 04-21 Push, ity of injection 15:15: 15:22 ONCE, 1 [place] 0.4 mg 00 :00 dose, On Medical [place] Branch 04/21/22 at 1015, Routine
family member caretaker approving Restricted medication : CHINTAN RICHARDS tc 2021-0 2022- No [id number] 16mCi 16 [facility] 99m-tetrofo 04-21 [facility] 13:45: 13:38 , [place] (MYOVIEW) 00 :00 Intravenou Medi lisa injection s, ONCE, 1 Bran ch 16 dose, On millicurie [place] 04/21/22 at 0845, Routine GABAPENTIN 2022-0 Yes TAKE 1 Unive rs 400 mg 9-21 CAPSULE BY ity of capsule 00:00: MOUTH [place] 00 THREE Medical TIMES A Branch DAY CYCLOBENZAP 2022-0 Yes [id number] TAKE 1 [facility] RINE 10 mg 9-21 TABLET BY ity of tablet 00:00: [facility] 00 THREE Medical TIMES A Branch DAY NEEDED FOR MUSCLE SPASMS GABAPENTIN 2022-0 Yes TAKE 1 Unive rs 400 mg 9-21 CAPSULE BY ity of capsule 00:00: MOUTH [place] 00 THREE Medical TIMES A Branch DAY CYCLOBENZAP 2022-0 Yes [id number] TAKE 1 [facility] RINE 10 mg 9-21 TABLET BY ity of tablet 00:00: MOUTH [place] 00 THREE Medical TIMES A Branch DAY NEEDED FOR MUSCLE SPASMS GABAPENTIN 2022-0 Yes TAKE 1 Unive rs 400 mg 9-21 CAPSULE BY ity of capsule 00:00: MOUTH [place] 00 THREE Medical TIMES A Branch DAY CYCLOBENZAP 2022-0 Yes [id number] TAKE 1 [facility] RINE 10 mg 9-21 TABLET BY ity of tablet 00:00: MOUTH [place] 00 THREE Medical TIMES A Branch DAY NEEDED FOR MUSCLE SPASMS GABAPENTIN 2022-0 Yes TAKE 1 Unive rs 400 mg 9-21 CAPSULE BY ity of capsule 00:00: MOUTH [place] 00 THREE Medical TIMES A Branch DAY CYCLOBENZAP 2022-0 Yes [id number] TAKE 1 [facility] RINE 10 mg 9-21 TABLET BY ity of tablet 00:00: [facility] 00 THREE Medical TIMES A Branch DAY NEEDED FOR MUSCLE SPASMS GABAPENTIN 2022-0 Yes TAKE 1 Unive rs 400 mg 9-21 CAPSULE BY ity of capsule 00:00: [facility] 00 THREE Medical TIMES A Branch DAY CYCLOBENZAP 2022-0 Yes [id number] TAKE 1 [facility] RINE 10 mg 9-21 TABLET BY ity of tablet 00:00: [facility] 00 THREE Medical TIMES A Branch DAY NEEDED FOR MUSCLE SPASMS GABAPENTIN 2022-0 Yes TAKE 1 Unive rs 400 mg 9-21 CAPSULE BY ity of capsule 00:00: MOUTH 00 THREE Medical TIMES A Branch DAY CYCLOBENZAP 2022-0 Yes [id number] TAKE 1 [facility] RINE 10 mg 9-21 TABLET BY ity of tablet 00:00: MOUTH 00 THREE Medical TIMES A Branch DAY NEEDED FOR MUSCLE SPASMS GABAPENTIN 2022-0 Yes TAKE 1 Unive rs 400 mg 9-21 CAPSULE BY ity of capsule 00:00: MOUTH 00 THREE Medical TIMES A Branch DAY CYCLOBENZAP 2022-0 Yes [id number] TAKE 1 [facility] RINE 10 mg 9-21 TABLET BY ity of tablet 00:00: MOUTH 00 THREE Medical TIMES A Branch DAY NEEDED FOR MUSCLE SPASMS GABAPENTIN 2022-0 Yes TAKE 1 Un[facility] rs 400 mg 9-21 CAPSULE BY ity of capsule 00:00: MOUTH 00 THREE Medical TIMES A Branch DAY CYCLOBENZAP 2022-0 Yes [id number] TAKE 1 [facility] RINE 10 mg 9-21 TABLET BY ity of tablet 00:00: MOUTH 00 THREE Medical TIMES A Branch DAY NEEDED FOR MUSCLE SPASMS GABAPENTIN 2022-0 Yes TAKE 1 Un[facility] rs 400 mg 9-21 CAPSULE BY ity of capsule 00:00: MOUTH 00 THREE Medical TIMES A Branch DAY CYCLOBENZAP 2022-0 Yes [id number] TAKE 1 [facility] RINE 10 mg 9-21 TABLET BY ity of tablet 00:00: MOUTH 00 THREE Medical TIMES A Branch DAY NEEDED FOR MUSCLE SPASMS GABAPENTIN 2022-0 Yes TAKE 1 Unive rs 400 mg 9-21 CAPSULE BY ity of capsule 00:00: MOUTH 00 THREE Medical TIMES A Branch DAY CYCLOBENZAP 2022-0 Yes [id number] TAKE 1 [facility] RINE 10 mg 9-21 TABLET BY ity of tablet 00:00: MOUTH 00 THREE Medical TIMES A Branch DAY NEEDED FOR MUSCLE SPASMS GABAPENTIN 2022-0 Yes TAKE 1 Unive rs 400 mg 9-21 CAPSULE BY ity of capsule 00:00: MOUTH 00 THREE Medical TIMES A Branch DAY CYCLOBENZAP 2022-0 Yes [id number] TAKE 1 [facility] RINE 10 mg 9-21 TABLET BY ity of tablet 00:00: MOUTH 00 THREE Medical TIMES A Branch DAY NEEDED FOR MUSCLE SPASMS GABAPENTIN 2022-0 Yes TAKE 1 Unive rs 400 mg 9-21 CAPSULE BY ity of capsule 00:00: MOUTH [place] 00 THREE Medical TIMES A Branch DAY CYCLOBENZAP 2022-0 Yes [id number] TAKE 1 [facility] RINE 10 mg 9-21 TABLET BY ity of tablet 00:00: MOUTH 00 THREE Medical TIMES A Branch DAY NEEDED FOR MUSCLE SPASMS GABAPENTIN 2022-0 Yes TAKE 1 Unive rs 400 mg 9-21 CAPSULE BY ity of capsule 00:00: MOUTH 00 THREE Medical TIMES A Branch DAY CYCLOBENZAP 2022-0 Yes [id number] TAKE 1 [facility] RINE 10 mg 9-21 TABLET BY ity of tablet 00:00: MOUTH 00 THREE Medical TIMES A Branch DAY NEEDED FOR MUSCLE SPASMS GABAPENTIN 2022-0 Yes TAKE 1 Unive rs 400 mg 9-21 CAPSULE BY ity of capsule 00:00: MOUTH 00 THREE Medical TIMES A Branch DAY CYCLOBENZAP 2022-0 Yes [id number] TAKE 1 [facility] RINE 10 mg 9-21 TABLET BY ity of tablet 00:00: MOUTH 00 THREE Medical TIMES A Branch DAY NEEDED FOR MUSCLE SPASMS GABAPENTIN 2022-0 Yes TAKE 1 Unive rs 400 mg 9-21 CAPSULE BY ity of capsule 00:00: MOUTH 00 THREE Medical TIMES A Branch DAY CYCLOBENZAP 2022-0 Yes [id number] TAKE 1 [facility] RINE 10 mg 9-21 TABLET BY ity of tablet 00:00: MOUTH 00 THREE Medical TIMES A Branch DAY NEEDED FOR MUSCLE SPASMS GABAPENTIN 2022-0 Yes TAKE 1 Unive rs 400 mg 9-21 CAPSULE BY ity of capsule 00:00: MOUTH 00 THREE Medical TIMES A Branch DAY CYCLOBENZAP 2022-0 Yes [id number] TAKE 1 [facility] RINE 10 mg 9-21 TABLET BY ity of tablet 00:00: MOUTH 00 THREE Medical TIMES A Branch DAY NEEDED FOR MUSCLE SPASMS GABAPENTIN 2022-0 Yes TAKE 1 Unive rs 400 mg 9-21 CAPSULE BY ity of capsule 00:00: MOUTH 00 THREE Medical TIMES A Branch DAY CYCLOBENZAP 2022-0 Yes [id number] TAKE 1 [facility] RINE 10 mg 9-21 TABLET BY ity of tablet 00:00: MOUTH 00 THREE Medical TIMES A Branch DAY NEEDED FOR MUSCLE SPASMS GABAPENTIN 2022-0 Yes TAKE 1 Unive rs 400 mg 9-21 CAPSULE BY ity of capsule 00:00: MOUTH 00 THREE Medical TIMES A Branch DAY CYCLOBENZAP 2022-0 Yes [id number] TAKE 1 [facility] RINE 10 mg 9-21 TABLET BY ity of tablet 00:00: MOUTH [place] THREE Medical TIMES A Branch DAY NEEDED FOR MUSCLE SPASMS GABAPENTIN 2022-0 Yes TAKE 1 Unive rs 400 mg 9-21 CAPSULE BY ity of capsule 00:00: MOUTH [place] THREE Medical TIMES A Branch DAY CYCLOBENZAP 2022-0 Yes [id number] TAKE 1 [facility] RINE 10 mg 9-21 TABLET BY ity of tablet 00:00: MOUTH THREE Medical TIMES A Branch DAY NEEDED FOR MUSCLE SPASMS GABAPENTIN 2022-0 Yes TAKE 1 Unive rs 400 mg 9-21 CAPSULE BY ity of capsule 00:00: [facility] THREE Medical TIMES A Branch DAY CYCLOBENZAP 2022-0 Yes [id number] TAKE 1 [facility] RINE 10 mg 9-21 TABLET BY ity of tablet 00:00: [facility] THREE Medical TIMES A Branch DAY NEEDED FOR MUSCLE SPASMS GABAPENTIN 2022-0 Yes TAKE 1 Unive rs 400 mg 9-21 CAPSULE BY ity of capsule 00:00: MOUTH THREE Medical TIMES A Branch DAY CYCLOBENZAP 2022-0 Yes [id number] TAKE 1 [facility] RINE 10 mg 9-21 TABLET BY ity of tablet 00:00: [facility] THREE Medical TIMES A Branch DAY NEEDED FOR MUSCLE SPASMS GABAPENTIN 2022-0 Yes TAKE 1 Unive rs 400 mg 9-21 CAPSULE BY ity of capsule 00:00: [facility] THREE Medical TIMES A Branch DAY CYCLOBENZAP 2022-0 Yes [id number] TAKE 1 [facility] RINE 10 mg 9-21 TABLET BY ity of tablet 00:00: MOUTH THREE Medical TIMES A Branch DAY NEEDED FOR MUSCLE SPASMS GABAPENTIN 2022-0 Yes TAKE 1 Unive rs 400 mg 9-21 CAPSULE BY ity of capsule 00:00: [facility] THREE Medical TIMES A Branch DAY CYCLOBENZAP 2022-0 Yes [id number] TAKE 1 [facility] RINE 10 mg 9-21 TABLET BY ity of tablet 00:00: [facility] THREE Medical TIMES A Branch DAY NEEDED FOR MUSCLE SPASMS GABAPENTIN 2022-0 Yes TAKE 1 Unive rs 400 mg 9-21 CAPSULE BY ity of capsule 00:00: [facility] 00 THREE Medical TIMES A Branch [...] CAPSULE BY ity of capsule 00:00: MOUTH [place] 00 THREE Medical TIMES A Branch DAY GABAPENTIN 2022-0 Yes TAKE 1 Unive rs 400 mg 9-21 CAPSULE BY ity of capsule 00:00: MOUTH [place] 00 THREE Medical TIMES A Branch DAY GABAPENTIN 2022-0 Yes TAKE 1 Unive rs 400 mg 9-21 CAPSULE BY ity of capsule 00:00: MOUTH [place] 00 THREE Medical TIMES A Branch DAY GABAPENTIN 2022-0 Yes TAKE 1 Unive rs 400 mg 9-21 CAPSULE BY ity of capsule 00:00: MOUTH [place] 00 THREE Medical TIMES A Branch DAY GABAPENTIN 2022-0 Yes TAKE 1 Unive rs 400 mg 9-21 CAPSULE BY ity of capsule 00:00: MOUTH [place] 00 THREE Medical TIMES A Branch DAY GABAPENTIN 2022-0 Yes TAKE 1 Unive rs 400 mg 9-21 CAPSULE BY ity of capsule 00:00: MOUTH [place] 00 THREE Medical TIMES A Branch DAY GABAPENTIN 2022-0 Yes TAKE 1 Unive rs 400 mg 9-21 CAPSULE BY ity of capsule 00:00: MOUTH [place] 00 THREE Medical TIMES A Branch DAY GABAPENTIN 2022-0 Yes TAKE 1 Unive rs 400 mg 9-21 CAPSULE BY ity of capsule 00:00: MOUTH [place] 00 THREE Medical TIMES A Branch DAY CYCLOBENZAP 2022-0 2022- No [id number] TAKE 1 [facility] RINE 10 mg 9-21 10-24 TABLET BY ity of tablet 00:00: 00:00 MOUTH [place] 00 :00 THREE Medical TIMES A Branch DAY NEEDED FOR MUSCLE SPASMS NAPROXEN 2022-0 Yes [id number] 500mg TAKE 1 [facility] 500 mg 9-12 [id number] TABLET BY ity of tablet 00:00: MOUTH IN [place] THE Medical MORNING Branch AND 1 TABLET IN THE EVENING. TAKE WITH MEALS. NAPROXEN 2022-0 Yes [id number] 500mg TAKE 1 [facility] 500 mg 9-12 [id number] TABLET BY ity of tablet 00:00: MOUTH IN [place] THE Medical MORNING Branch AND 1 TABLET IN THE EVENING. TAKE WITH MEALS. NAPROXEN 2022-0 Yes [id number] 500mg TAKE 1 [facility] 500 mg 9-12 [id number] TABLET BY ity of tablet 00:00: MOUTH IN [place] THE Medical MORNING Branch AND 1 TABLET IN THE EVENING. TAKE WITH MEALS. NAPROXEN 2022-0 Yes [id number] 500mg TAKE 1 [facility] 500 mg 9-12 [id number] TABLET BY ity of tablet 00:00: MOUTH IN [place] [address] THE [facility] MORNING [place] AND 1 TABLET IN THE EVENING. TAKE WITH MEALS. NAPROXEN 2022-0 Yes [id number] 500mg TAKE 1 [facility] 500 mg 9-12 [id number] TABLET BY ity of tablet 00:00: MOUTH IN [address] MORNING [place] AND 1 TABLET IN THE EVENING. TAKE WITH MEALS. NAPROXEN 2022-0 Yes [id number] 500mg TAKE 1 [facility] 500 mg 9-12 [id number] TABLET BY ity of tablet 00:00: MOUTH IN [address] MORNING [place] AND 1 TABLET IN THE EVENING. TAKE WITH MEALS. NAPROXEN 2022-0 Yes [id number] 500mg TAKE 1 [facility] 500 mg 9-12 [id number] TABLET BY ity of tablet 00:00: MOUTH IN [address] MORNING [place] AND 1 TABLET IN THE EVENING. TAKE WITH MEALS. NAPROXEN 2022-0 Yes [id number] 500mg TAKE 1 [facility] 500 mg 9-12 [id number] TABLET BY ity of tablet 00:00: MOUTH IN [address] AND 1 TABLET IN THE EVENING. TAKE WITH MEALS. NAPROXEN 2022-0 Yes [id number] 500mg TAKE 1 [facility] 500 mg 9-12 [id number] TABLET BY ity of tablet 00:00: MOUTH IN [address] AND 1 TABLET IN THE EVENING. TAKE WITH MEALS. NAPROXEN 2022-0 Yes [id number] 500mg TAKE 1 [facility] 500 mg 9-12 [id number] TABLET BY ity of tablet 00:00: MOUTH IN [address] AND 1 TABLET IN THE EVENING. TAKE WITH MEALS. NAPROXEN 2022-0 Yes [id number] 500mg TAKE 1 [facility] 500 mg 9-12 [id number] TABLET BY ity of tablet 00:00: MOUTH IN [address] AND 1 TABLET IN THE EVENING. TAKE WITH MEALS. NAPROXEN 2022-0 Yes [id number] 500mg TAKE 1 [facility] 500 mg 9-12 [id number] TABLET BY ity of tablet 00:00: MOUTH IN [address] AND 1 TABLET IN THE EVENING. TAKE WITH MEALS. NAPROXEN 2022-0 Yes [id number] 500mg TAKE 1 [facility] 500 mg 9-12 [id number] TABLET BY ity of tablet 00:00: MOUTH IN [place] [address] THE Medical MORNING [place] AND 1 TABLET IN THE EVENING. TAKE WITH MEALS. NAPROXEN 2-0 Yes [id number] 500mg TAKE 1 [facility] 500 mg 9-12 [id number] TABLET BY ity of tablet 00:00: MOUTH IN [place] [address] THE [facility] MORNING [place] AND 1 TABLET IN THE EVENING. TAKE WITH MEALS. NAPROXEN 2-0 Yes [id number] 500mg TAKE 1 [facility] 500 mg 9-12 [id number] TABLET BY ity of tablet 00:00: MOUTH IN [place] [address] THE [facility] MORNING [place] AND 1 TABLET IN THE EVENING. TAKE WITH MEALS. NAPROXEN 2-0 Yes [id number] 500mg TAKE 1 [facility] 500 mg 9-12 [id number] TABLET BY ity of tablet 00:00: MOUTH IN [address] MORNING [place] AND 1 TABLET IN THE EVENING. TAKE WITH MEALS. NAPROXEN 2021-0 Yes [id number] 500mg TAKE 1 [facility] 500 mg 9-12 [id number] TABLET BY ity of tablet 00:00: MOUTH IN [place] [address] THE [facility] MORNING [place] AND 1 TABLET IN THE EVENING. TAKE WITH MEALS. NAPROXEN 2021-0 2022- No [id number] 500mg TAKE 1 [facility] 500 mg 9-12 10-13 [id number] TABLET BY ity o f tablet 00:00: 00:00 MOUTH IN [place] 00 :00 [facility] MORNING [place] AND 1 TABLET IN THE EVENING. TAKE WITH MEALS. FLUTICASONE 2021-0 Yes [id number] SPRAY 2 [facility] PROPIONATE 9-07 SPRAYS ity of 50 00:00: INTO EACH [place] mcg/actuati 00 NOSTRIL Medic al on nasal EVERY DAY Branch spray FLUTICASONE 2021-0 Yes [id number] SPRAY 2 [facility] PROPIONATE 9-07 SPRAYS ity of 50 00:00: INTO EACH [place] mcg/actuati 00 NOSTRIL Medic al on nasal EVERY DAY Branch spray FLUTICASONE 2021-0 Yes [id number] SPRAY 2 [facility] PROPIONATE 9-07 SPRAYS ity of 50 00:00: INTO EACH [place] mcg/actuati 00 NOSTRIL Medic al on nasal EVERY DAY Branch spray FLUTICASONE 2021-0 Yes [id number] SPRAY 2 [facility] PROPIONATE 9-07 SPRAYS ity of 50 00:00: INTO EACH [place] mcg/actuati 00 NOSTRIL Medic al on nasal EVERY DAY Branch spray FLUTICASONE Yes [id number] SPRAY 2 [facility] PROPIONATE 9-07 SPRAYS ity of 50 00:00: INTO EACH [place] mcg/actuati 00 NOSTRIL Medic al on nasal EVERY DAY Branch spray FLUTICASONE Yes [id number] SPRAY 2 [facility] PROPIONATE 9-07 SPRAYS ity of 50 00:00: INTO EACH [place] mcg/actuati 00 NOSTRIL Medic al on nasal EVERY DAY Branch spray FLUTICASONE 0 Yes [id number] SPRAY 2 [facility] PROPIONATE 9-07 SPRAYS ity of 50 00:00: INTO EACH [place] mcg/actuati 00 NOSTRIL Medic al on nasal EVERY DAY Branch spray FLUTICASONE 0 Yes [id number] SPRAY 2 [facility] PROP[facility] 9-07 SPRAYS ity of 50 00:00: INTO EACH [place] mcg/actuati 00 NOSTRIL Medic al on nasal EVERY DAY Branch spray FLUTICASONE 0 Yes [id number] SPRAY 2 [facility] PROPIONATE 9-07 SPRAYS ity of 50 00:00: INTO EACH [place] mcg/actuati 00 NOSTRIL Medic al on nasal EVERY DAY Branch spray FLUTICASONE Yes [id number] SPRAY 2 [facility] PROPIONATE 9-07 SPRAYS ity of 50 00:00: INTO EACH [place] mcg/actuati 00 NOSTRIL Medic al on nasal EVERY DAY Branch spray FLUTICASONE 0 Yes [id number] SPRAY 2 [facility] PROPIONATE 9-07 SPRAYS ity of 50 00:00: INTO EACH [place] mcg/actuati 00 NOSTRIL Medic al on nasal EVERY DAY Branch spray FLUTICASONE 0 Yes [id number] SPRAY 2 [facility] PROPIONATE 9-07 SPRAYS ity of 50 00:00: INTO EACH [place] mcg/actuati 00 NOSTRIL Medic al on nasal EVERY DAY Branch spray FLUTICASONE 0 Yes [id number] SPRAY 2 [facility] PROPIONATE 9-07 SPRAYS ity of 50 00:00: INTO EACH [place] mcg/actuati 00 NOSTRIL Medic al on nasal EVERY DAY Branch spray FLUTICASONE 0 Yes [id number] SPRAY 2 [facility] PROPIONATE 9-07 SPRAYS ity of 50 00:00: INTO EACH [place] mcg/actuati 00 NOSTRIL Medic al on nasal EVERY DAY Branch spray FLUTICASONE 2021-0 Yes [id number] SPRAY 2 [facility] PROPIONATE 9-07 SPRAYS ity of 50 00:00: INTO EACH [place] mcg/actuati 00 NOSTRIL Medic al on nasal EVERY DAY Branch spray FLUTICASONE 2021-0 Yes [id number] SPRAY 2 [facility] PROPIONATE 9-07 SPRAYS ity of 50 00:00: INTO EACH [place] mcg/actuati 00 NOSTRIL Medic al on nasal EVERY DAY Branch spray FLUTICASONE 2021-0 Yes [id number] SPRAY 2 [facility] PROPIONATE 9-07 SPRAYS ity of 50 00:00: INTO EACH [place] mcg/actuati 00 NOSTRIL Medic al on nasal EVERY DAY Branch spray FLUTICASONE 2021-0 Yes [id number] SPRAY 2 [facility] PROPIONATE 9-07 SPRAYS ity of 50 00:00: INTO EACH [place] mcg/actuati 00 NOSTRIL Medic al on nasal EVERY DAY Branch spray FLUTICASONE 2021-0 Yes [id number] SPRAY 2 [facility] PROPIONATE 9-07 SPRAYS ity of 50 00:00: INTO EACH [place] mcg/actuati 00 NOSTRIL Medic al on nasal EVERY DAY Branch spray FLUTICASONE 2021-0 Yes [id number] SPRAY 2 [facility] PROPIONATE 9-07 SPRAYS ity of 50 00:00: INTO EACH [place] mcg/actuati 00 NOSTRIL Medic al on nasal EVERY DAY Branch spray FLUTICASONE 2021-0 Yes [id number] SPRAY 2 [facility] PROPIONATE 9-07 SPRAYS ity of 50 00:00: INTO EACH [place] mcg/actuati 00 NOSTRIL Medic al on nasal EVERY DAY Branch spray FLUTICASONE 2021-0 Yes [id number] SPRAY 2 [facility] PROPIONATE 9-07 SPRAYS ity of 50 00:00: INTO EACH [place] mcg/actuati 00 NOSTRIL Medic al on nasal EVERY DAY Branch spray FLUTICASONE 2021-0 Yes [id number] SPRAY 2 [facility] PROPIONATE 9-07 SPRAYS ity of 50 00:00: INTO EACH [place] mcg/actuati 00 NOSTRIL Medic al on nasal EVERY DAY Branch spray FLUTICASONE 2021-0 Yes [id number] SPRAY 2 [facility] PROPIONATE 9-07 SPRAYS ity of 50 00:00: INTO EACH [place] mcg/actuati 00 NOSTRIL Medic al on nasal EVERY DAY Branch spray FLUTICASONE 2021-0 Yes [id number] SPRAY 2 [facility] PROPIONATE 9-07 SPRAYS ity of 50 00:00: INTO EACH [place] mcg/actuati 00 NOSTRIL Medic al on nasal EVERY DAY Branch spray FLUTICASONE 0 Yes [id number] SPRAY 2 [facility] PROPIONATE 9-07 SPRAYS ity of 50 00:00: INTO EACH [place] mcg/actuati NOSTRIL Medic al on nasal EVERY DAY Branch spray FLUTICASONE 0 Yes [id number] SPRAY 2 [facility] PROPIONATE 9-07 SPRAYS ity of 50 00:00: INTO EACH [place] mcg/actuati 00 NOSTRIL Medic al on nasal EVERY DAY Branch spray FLUTICASONE 0 Yes [id number] SPRAY 2 [facility] PROPIONATE 9-07 SPRAYS ity of 50 00:00: INTO EACH [place] mcg/actuati 00 NOSTRIL Medic al on nasal EVERY DAY Branch spray FLUTICASONE 2021-0 Yes [id number] SPRAY 2 [facility] PROPIONATE 9-07 SPRAYS ity of 50 00:00: INTO EACH [place] mcg/actuati 00 NOSTRIL Medic al on nasal EVERY DAY Branch spray FLUTICASONE 0 Yes [id number] SPRAY 2 [facility] PROPIONATE 9-07 SPRAYS ity of 50 00:00: INTO EACH [place] mcg/actuati 00 NOSTRIL Medic al on nasal EVERY DAY Branch spray FLUTICASONE 0 Yes [id number] SPRAY 2 [facility] PROPIONATE 9-07 SPRAYS ity of 50 00:00: INTO EACH [place] mcg/actuati 00 NOSTRIL Medic al on nasal EVERY DAY Branch spray FLUTICASONE 2021-0 Yes [id number] SPRAY 2 [facility] PROPIONATE 9-07 SPRAYS ity of 50 00:00: INTO EACH [place] mcg/actuati 00 NOSTRIL Medic al on nasal EVERY DAY Branch spray FLUTICASONE 2021-0 Yes [id number] SPRAY 2 [facility] PROPIONATE 9-07 SPRAYS ity of 50 00:00: INTO EACH [place] mcg/actuati 00 NOSTRIL Medic al on nasal EVERY DAY Branch spray FLUTICASONE 2021-0 Yes [id number] SPRAY 2 [facility] PROPIONATE 9-07 SPRAYS ity of 50 00:00: INTO EACH [place] mcg/actuati 00 NOSTRIL Medic al on nasal EVERY DAY Branch spray FLUTICASONE 2021-0 Yes [id number] SPRAY 2 [facility] PROPIONATE 9-07 SPRAYS ity of 50 00:00: INTO EACH [place] mcg/actuati 00 NOSTRIL Medic al on nasal EVERY DAY Branch spray FLUTICASONE 2021-0 Yes [id number] SPRAY 2 [facility] PROPIONATE 9-07 SPRAYS ity of 50 00:00: INTO EACH [place] mcg/actuati 00 NOSTRIL Medic al on nasal EVERY DAY Branch spray FLUTICASONE 2021-0 Yes [id number] SPRAY 2 [facility] PROPIONATE 9-07 SPRAYS ity of 50 00:00: INTO EACH [place] mcg/actuati 00 NOSTRIL Medic al on nasal EVERY DAY Branch spray FLUTICASONE 2021-0 Yes [id number] SPRAY 2 [facility] PROPIONATE 9-07 SPRAYS ity of 50 00:00: INTO EACH [place] mcg/actuati 00 NOSTRIL Medic al on nasal EVERY DAY Branch spray FLUTICASONE 2021-0 Yes [id number] SPRAY 2 [facility] PROPIONATE 9-07 SPRAYS ity of 50 00:00: INTO EACH [place] mcg/actuati 00 NOSTRIL Medic al on nasal EVERY DAY Branch spray FLUTICASONE 2021-0 2021- No [id number] SPRAY 2 [facility] PROPIONATE 9-07 12-07 SPRAYS ity of 50 00:00: 00:00 INTO EACH [place] mcg/actuati 00 :00 NOSTRIL Medic al on [...] times daily for E11.69 erythromyci 2021-0 Yes [id number] .5[in_u Place 0.5 [facility] n 5 mg/gram 8-31 s] Inches in ity of (0.5 %) 00:00: both eyes [place] ophthalmic 00 4 (four) Medic al ointment times Branch daily. erythromyci 2021-0 Yes [id number] .5[in_u Place 0.5 [facility] n 5 mg/gram 8-31 s] Inches in ity of (0.5 %) 00:00: both eyes [place] ophthal[facility] 00 4 (four) Medic al ointment times Branch daily. erythromyci 2021-0 Yes [id number] .5[in_u Place 0.5 [facility] n 5 mg/gram 8-31 s] Inches in ity of (0.5 %) 00:00: both eyes [place] ophthalmic 00 4 (four) Medic al ointment times Branch daily. erythromyci 2021-0 Yes [id number] .5[in_u Place 0.5 [facility] n 5 mg/gram 8-31 s] Inches in ity of (0.5 %) 00:00: both eyes [place] ophthal[facility] 00 4 (four) Medic al ointment times Branch daily. erythromyci Yes [id number] .5[in_u Place 0.5 [facility] n 5 mg/gram 8-31 s] Inches in ity of (0.5 %) 00:00: both eyes [place] [facility] 00 4 (four) Medic al ointment times Branch daily. erythromyci Yes [id number] .5[in_u Place 0.5 [facility] n 5 mg/gram 8-31 s] Inches in ity of (0.5 %) 00:00: both eyes [place] ophthal[facility] 00 4 (four) Medic al ointment times Branch daily. erythromyci Yes [id number] .5[in_u Place 0.5 [facility] n 5 mg/gram 8-31 s] Inches in ity of (0.5 %) 00:00: both eyes [place] ophthal[facility] 00 4 (four) Medic al ointment times Branch daily. erythromyci Yes [id number] .5[in_u Place 0.5 [facility] n 5 mg/gram 8-31 s] Inches in ity of (0.5 %) 00:00: both eyes [place] [facility] 00 4 (four) Medic al ointment times Branch daily. erythromyci Yes [id number] .5[in_u Place 0.5 [facility] n 5 mg/gram 8-31 s] Inches in ity of (0.5 %) 00:00: both eyes [place] ophthal[facility] 00 4 (four) Medic al ointment times Branch daily. erythromyci Yes [id number] .5[in_u Place 0.5 [facility] n 5 mg/gram 8-31 s] Inches in ity of (0.5 %) 00:00: both eyes [place] ophthal[facility] 00 4 (four) Medic al ointment times Branch daily. erythromyci 0 Yes [id number] .5[in_u Place 0.5 [facility] n 5 mg/gram 8-31 s] Inches in ity of (0.5 %) 00:00: both eyes [place] ophthal[facility] 00 4 (four) Medic al ointment times Branch daily. erythromyci Yes [id number] .5[in_u Place 0.5 [facility] n 5 mg/gram 8-31 s] Inches in ity of (0.5 %) 00:00: both eyes [place] [facility] 00 4 (four) Medic al ointment times Branch daily. erythromyci 2021-0 Yes [id number] .5[in_u Place 0.5 [facility] n 5 mg/gram 8-31 s] Inches in ity of (0.5 %) 00:00: both eyes [place] ophthal[facility] 00 4 (four) Medic al ointment times Branch daily. erythromyci 2021-0 Yes [id number] .5[in_u Place 0.5 [facility] n 5 mg/gram 8-31 s] Inches in ity of (0.5 %) 00:00: both eyes [place] [facility] 00 4 (four) Medic al ointment times Branch daily. erythromyci 2021-0 Yes [id number] .5[in_u Place 0.5 [facility] n 5 mg/gram 8-31 s] Inches in ity of (0.5 %) 00:00: both eyes [place] ophthal[facility] 00 4 (four) Medic al ointment times Branch daily. erythromyci 2021- Yes [id number] .5[in_u Place 0.5 [facility] n 5 mg/gram 8-31 s] Inches in ity of (0.5 %) 00:00: both eyes [place] [facility] 00 4 (four) Medic al ointment times Branch daily. erythromyci 2021-0 Yes [id number] .5[in_u Place 0.5 [facility] n 5 mg/gram 8-31 s] Inches in ity of (0.5 %) 00:00: both eyes [place] [facility] 00 4 (four) Medic al ointment times Branch daily. erythromyci 2021- Yes [id number] .5[in_u Place 0.5 [facility] n 5 mg/gram 8-31 s] Inches in ity of (0.5 %) 00:00: both eyes [place] [facility] 00 4 (four) Medic al ointment times Branch daily. erythromyci 2021-0 Yes [id number] .5[in_u Place 0.5 [facility] n 5 mg/gram 8-31 s] Inches in ity of (0.5 %) 00:00: both eyes [place] [facility] 00 4 (four) Medic al ointment times Branch daily. erythromyci 2021-0 Yes [id number] .5[in_u Place 0.5 [facility] n 5 mg/gram 8-31 s] Inches in ity of (0.5 %) 00:00: both eyes [place] [facility] 00 4 (four) Medic al ointment times Branch daily. erythromyci 2021-0 Yes [id number] .5[in_u Place 0.5 [facility] n 5 mg/gram 8-31 s] Inches in ity of (0.5 %) 00:00: both eyes [place] [facility] 00 4 (four) Medic al ointment times Branch daily. erythromyci 2021-0 Yes [id number] .5[in_u Place 0.5 [facility] n 5 mg/gram 8-31 s] Inches in ity of (0.5 %) 00:00: both eyes [place] [facility] 00 4 (four) Medic al ointment times Branch daily. erythromyci Yes [id number] .5[in_u Place 0.5 [facility] n 5 mg/gram 8-31 s] Inches in ity of (0.5 %) 00:00: both eyes [place] ophthal[facility] 00 4 (four) Medic al ointment times Branch daily. erythromyci 2021-0 Yes [id number] .5[in_u Place 0.5 [facility] n 5 mg/gram 8-31 s] Inches in ity of (0.5 %) 00:00: both eyes [place] [facility] 00 4 (four) Medic al ointment times Branch daily. erythromyci 2021-0 Yes [id number] .5[in_u Place 0.5 [facility] n 5 mg/gram 8-31 s] Inches in ity of (0.5 %) 00:00: both eyes [place] [facility] 00 4 (four) Medic al ointment times Branch daily. erythromyci 2021-0 Yes [id number] .5[in_u Place 0.5 [facility] n 5 mg/gram 8-31 s] Inches in ity of (0.5 %) 00:00: both eyes [place] [facility] 00 4 (four) Medic al ointment times Branch daily. erythromyci 2021-0 Yes [id number] .5[in_u Place 0.5 [facility] n 5 mg/gram 8-31 s] Inches in ity of (0.5 %) 00:00: both eyes [place] [facility] 00 4 (four) Medic al ointment times Branch daily. erythromyci 2021-0 Yes [id number] .5[in_u Place 0.5 [facility] n 5 mg/gram 8-31 s] Inches in ity of (0.5 %) 00:00: both eyes [place] ophthal[facility] 00 4 (four) Medic al ointment times Branch daily. erythromyci 2021-0 Yes [id number] .5[in_u Place 0.5 [facility] n 5 mg/gram 8-31 s] Inches in ity of (0.5 %) 00:00: both eyes [place] [facility] 00 4 (four) Medic al ointment times Branch daily. erythromyci 2021- Yes [id number] .5[in_u Place 0.5 [facility] n 5 mg/gram 8-31 s] Inches in ity of (0.5 %) 00:00: both eyes [place] [facility] 00 4 (four) Medic al ointment times Branch daily. erythromyci Yes [id number] .5[in_u Place 0.5 [facility] n 5 mg/gram 8-31 s] Inches in ity of (0.5 %) 00:00: both eyes [place] [facility] 00 4 (four) Medic al ointment times Branch daily. erythromyci 2021-0 Yes [id number] .5[in_u Place 0.5 [facility] n 5 mg/gram 8-31 s] Inches in ity of (0.5 %) 00:00: both eyes [place] ophthal[facility] 00 4 (four) Medic al ointment times Branch daily. erythromyci 2021-0 Yes [id number] .5[in_u Place 0.5 [facility] n 5 mg/gram 8-31 s] Inches in ity of (0.5 %) 00:00: both eyes [place] [facility] 00 4 (four) Medic al ointment times Branch daily. erythromyci Yes [id number] .5[in_u Place 0.5 [facility] n 5 mg/gram 8-31 s] Inches in ity of (0.5 %) 00:00: both eyes [place] ophthal[facility] 00 4 (four) Medic al ointment times Branch daily. erythromyci 2021- Yes [id number] .5[in_u Place 0.5 [facility] n 5 mg/gram 8-31 s] Inches in ity of (0.5 %) 00:00: both eyes [place] [facility] 00 4 (four) Medic al ointment times Branch daily. erythromyci 2021-0 Yes [id number] .5[in_u Place 0.5 [facility] n 5 mg/gram 8-31 s] Inches in ity of (0.5 %) 00:00: both eyes [place] ophthal[facility] 00 4 (four) Medic al ointment times Branch daily. erythromyci 2021- Yes [id number] .5[in_u Place 0.5 [facility] n 5 mg/gram 8-31 s] Inches in ity of (0.5 %) 00:00: both eyes [place] [facility] 00 4 (four) Medic al ointment times Branch daily. erythromyci 2021- Yes [id number] .5[in_u Place 0.5 [facility] n 5 mg/gram 8-31 s] Inches in ity of (0.5 %) 00:00: both eyes [place] ophthal[facility] 00 4 (four) Medic al ointment times Branch daily. erythromyci 2021- Yes [id number] .5[in_u Place 0.5 [facility] n 5 mg/gram 8-31 s] Inches in ity of (0.5 %) 00:00: both eyes [place] [facility] 00 4 (four) Medic al ointment times Branch daily. erythromyci Yes [id number] .5[in_u Place 0.5 [facility] n 5 mg/gram 8-31 s] Inches in ity of (0.5 %) 00:00: both eyes [place] ophthal[facility] 00 4 (four) Medic al ointment times Branch daily. erythromyci 2021-0 Yes [id number] .5[in_u Place 0.5 [facility] n 5 mg/gram 8-31 s] Inches in ity of (0.5 %) 00:00: both eyes [place] [facility] 00 4 (four) Medic al ointment times Branch daily. erythromyci 2021- Yes [id number] .5[in_u Place 0.5 [facility] n 5 mg/gram 8-31 s] Inches in ity of (0.5 %) 00:00: both eyes [place] [facility] 00 4 (four) Medic al ointment times Branch daily. erythromyci 2021-0 Yes [id number] .5[in_u Place 0.5 [facility] n 5 mg/gram 8-31 s] Inches in ity of (0.5 %) 00:00: both eyes [place] [facility] 00 4 (four) Medic al ointment times Branch daily. erythromyci 2021-0 Yes [id number] .5[in_u Place 0.5 [facility] n 5 mg/gram 8-31 s] Inches in ity of (0.5 %) 00:00: both eyes [place] [facility] 00 4 (four) Medic al ointment times Branch daily. erythromyci 2021-0 Yes [id number] .5[in_u Place 0.5 [facility] n 5 mg/gram 8-31 s] Inches in ity of (0.5 %) 00:00: both eyes [place] [facility] 00 4 (four) Medic al ointment times Branch daily. erythromyci Yes [id number] .5[in_u Place 0.5 [facility] n 5 mg/gram 8-31 s] Inches in ity of (0.5 %) 00:00: both eyes [place] [facility] 00 4 (four) Medic al ointment times Branch daily. erythromyci 2021-0 Yes [id number] .5[in_u Place 0.5 [facility] n 5 mg/gram 8-31 s] Inches in ity of (0.5 %) 00:00: both eyes [place] [facility] 00 4 (four) Medic al ointment times Branch daily. erythromyci 2021-0 Yes [id number] .5[in_u Place 0.5 [facility] n 5 mg/gram 8-31 s] Inches in ity of (0.5 %) 00:00: both eyes [place] ophthal[facility] 00 4 (four) Medic al ointment times Branch daily. erythromyci 2021- Yes [id number] .5[in_u Place 0.5 [facility] n 5 mg/gram 8-31 s] Inches in ity of (0.5 %) 00:00: both eyes [place] ophthal[facility] 00 4 (four) Medic al ointment times Branch daily. erythromyci Yes [id number] .5[in_u Place 0.5 [facility] n 5 mg/gram 8-31 s] Inches in ity of (0.5 %) 00:00: both eyes [place] ophthal[facility] 00 4 (four) Medic al ointment times Branch daily. erythromyci 2021-0 Yes [id number] .5[in_u Place 0.5 [facility] n 5 mg/gram 8-31 s] Inches in ity of (0.5 %) 00:00: both eyes [place] ophthal[facility] 00 4 (four) Medic al ointment times Branch daily. erythromyci 2021- Yes [id number] .5[in_u Place 0.5 [facility] n 5 mg/gram 8-31 s] Inches in ity of (0.5 %) 00:00: both eyes [place] ophthal[facility] 00 4 (four) Medic al ointment times Branch daily. erythromyci Yes [id number] .5[in_u Place 0.5 [facility] n 5 mg/gram 8-31 s] Inches in ity of (0.5 %) 00:00: both eyes [place] [facility] 00 4 (four) Medic al ointment times Branch daily. erythromyci Yes [id number] .5[in_u Place 0.5 [facility] n 5 mg/gram 8-31 s] Inches in ity of (0.5 %) 00:00: both eyes [place] [facility] 00 4 (four) Medic al ointment times Branch daily. CYCLOBENZAP Yes [id number] TAKE 1 [facility] RINE 10 mg 8-24 [...] Pain. Indication s: chronic pain CYCLOBENZAP Yes [id number] TAKE 1 [facility] RINE 10 mg 8-24 [...] Indication s: chronic pain CYCLOBENZAP 2022-0 Yes [id number] TAKE 1 [facility] RINE 10 mg 8-24 [...] Indication s: chronic pain CYCLOBENZAP 2022-0 Yes [id number] TAKE 1 [facility] RINE 10 mg 8-24 [...] Indication s: chronic pain CYCLOBENZAP 2022-0 Yes [id number] TAKE 1 [facility] RINE 10 mg 8-24 [...] Indication s: chronic pain CYCLOBENZAP 2022-0 Yes [id number] TAKE 1 [facility] RINE 10 mg 8-24 [...] Indication s: chronic pain CYCLOBENZAP 2021-2021- No [id number] TAKE 1 [facility] RINE 10 mg 8-24 - TABLET BY ity of tablet 00:00: 00:00 MOUTH [place] 00 :00 THREE Medical TIMES A Branch DAY NEEDED FOR MUSCLE SPASMS CYCLOBENZAP 2022-0 2022- No [id number] TAKE 1 [facility] RINE 10 mg 8-24 [...] A Medical DAY Branch CLONAZEPAM 2022-0 Yes [id number] TAKE 1 [facility] 1 mg tablet 8-18 TABLET BY ity of 00:00: MOUTH TWICE A Medical DAY Branch CLONAZEPAM 2022-0 Yes [id number] TAKE 1 [facility] 1 mg tablet 8-18 [...] A Medical DAY Branch CLONAZEPAM 2022-0 Yes [id number] TAKE 1 [facility] 1 mg tablet 8-18 TABLET BY ity of 00:00: TWICE A Medical DAY Branch CLONAZEPAM 2022-0 Yes [id number] TAKE 1 [facility] 1 mg tablet 8-18 TABLET BY ity of 00:00: TWICE A Medical DAY Branch CLONAZEPAM 2022-0 Yes [id number] TAKE 1 [facility] 1 mg tablet 8-18 TABLET BY ity of 00:00: TWICE A Medical DAY Branch CLONAZEPAM 2022-0 Yes [id number] TAKE 1 [facility] 1 mg tablet 8-18 [...] A Medical DAY Branch CLONAZEPAM 2022-0 Yes [id number] TAKE 1 [facility] 1 mg tablet 8-18 TABLET BY ity of 00:00: TWICE A Medical DAY Branch CLONAZEPAM 2022-0 Yes [id number] TAKE 1 [facility] 1 mg tablet 8-18 TABLET BY ity of 00:00: TWICE A Medical DAY Branch CLONAZEPAM 2022-0 Yes [id number] TAKE 1 [facility] 1 mg tablet 8-18 TABLET BY ity of 00:00: TWICE A Medical DAY Branch CLONAZEPAM 2022-0 Yes [id number] TAKE 1 [facility] 1 mg tablet 8-18 TABLET BY ity of 00:00: MOUTH TWICE A Medical DAY Branch CLONAZEPAM 2022-0 Yes [id number] TAKE 1 [facility] 1 mg tablet 8-18 TABLET BY ity of 00:00: TWICE A Medical DAY Branch CLONAZEPAM 2022-0 Yes [id number] TAKE 1 [facility] 1 mg tablet 8-18 [...] A Medical DAY Branch CLONAZEPAM 2022-0 Yes [id number] TAKE 1 [facility] 1 mg tablet 8-18 [...] A Medical DAY Branch CLONAZEPAM 2021- Yes [id number] TAKE 1 [facility] 1 mg tablet 8-18 TABLET BY ity of 00:00: MOUTH [place] 00 TWICE A Medical DAY Branch naproxen 0 Yes [id number] 500mg Take 1 [facility] (NAPROSYN) 8-15 [id number] tablet by it y of 500 mg 00:00: mouth in [place] tablet 00 the Medical morning Branch and 1 tablet in the evening. Take with meals. naproxen Yes [id number] 500mg Take 1 [facility] (NAPROSYN) 8-15 [id number] tablet by it y of 500 mg 00:00: mouth in [place] tablet 00 the Medical morning Branch and 1 tablet in the evening. Take with meals. naproxen Yes [id number] 500mg Take 1 [facility] (NAPROSYN) 8-15 [id number] tablet by it y of 500 mg 00:00: mouth in [place] tablet 00 the Medical morning Branch and 1 tablet in the evening. Take with meals. naproxen 2021- No [id number] 500mg Take 1 [facility] (NAPROSYN) 03-14 [id number] tablet by i ty of 500 mg 00:00: 00:00 mouth in [place] tablet 00 :00 the Medical morning Branch and 1 tablet in the evening. Take with meals. naproxen 2021- No [id number] 500mg Take 1 [facility] (NAPROSYN) 03-14 [id number] tablet by i ty of 500 mg [...] Medical AT BEDTIME Branch TADALAFIL 2-0 Yes [id number] TAKE 1 [facility] 20 mg 7-28 TABLET BY ity of tablet 00:00: MOUTH [place] 00 NEEDED FOR Medical ERECTILE Branch DYSFUNCTIO N. TADALAFIL 2-0 Yes [id number] TAKE 1 U nivers 20 mg 7-28 TABLET BY ity of tablet 00:00: MOUTH [place] 00 NEEDED FOR Medical ERECTILE Branch DYSFUNCTIO N. TADALAFIL 2-0 Yes [id number] TAKE 1 U nivers 20 mg 7-28 TABLET BY ity of tablet 00:00: MOUTH [place] 00 NEEDED FOR Medical ERECTILE Branch DYSFUNCTIO N. TADALAFIL 2-0 Yes [id number] TAKE 1 U nivers 20 mg 7-28 TABLET BY ity of tablet 00:00: MOUTH [place] 00 NEEDED FOR Medical ERECTILE Branch DYSFUNCTIO N. TADALAFIL 2-0 Yes [id number] TAKE 1 U nivers 20 mg 7-28 TABLET BY ity of tablet 00:00: MOUTH [place] 00 NEEDED FOR Medical ERECTILE Branch DYSFUNCTIO N. TADALAFIL 2022-0 Yes [id number] TAKE 1 U nivers 20 mg 7-28 TABLET BY ity of tablet 00:00: MOUTH [place] 00 NEEDED FOR Medical ERECTILE Branch DYSFUNCTIO N. TADALAFIL 2022-0 Yes [id number] TAKE 1 U nivers 20 mg 7-28 TABLET BY ity of tablet 00:00: MOUTH [place] 00 NEEDED FOR Medical ERECTILE Branch DYSFUNCTIO N. TADALAFIL 2022-0 Yes [id number] TAKE 1 U nivers 20 mg 7-28 TABLET BY ity of tablet 00:00: MOUTH [place] 00 NEEDED FOR Medical ERECTILE Branch DYSFUNCTIO N. TADALAFIL 2022-0 Yes [id number] TAKE 1 U nivers 20 mg 7-28 TABLET BY ity of tablet 00:00: MOUTH [place] 00 NEEDED FOR Medical ERECTILE Branch DYSFUNCTIO N. TADALAFIL 2022-0 Yes [id number] TAKE 1 U nivers 20 mg 7-28 TABLET BY ity of tablet 00:00: MOUTH [place] 00 NEEDED FOR Medical ERECTILE Branch DYSFUNCTIO N. TADALAFIL 2022-0 Yes [id number] TAKE 1 U nivers 20 mg 7-28 TABLET BY ity of tablet 00:00: MOUTH [place] 00 NEEDED FOR Medical ERECTILE Branch DYSFUNCTIO N. TADALAFIL 2022-0 Yes [id number] TAKE 1 U nivers 20 mg 7-28 TABLET BY ity of tablet 00:00: MOUTH [place] 00 NEEDED FOR Medical ERECTILE Branch DYSFUNCTIO N. TADALAFIL 2022-0 Yes [id number] TAKE 1 U nivers 20 mg 7-28 TABLET BY ity of tablet 00:00: MOUTH [place] 00 NEEDED FOR Medical ERECTILE Branch DYSFUNCTIO N. TADALAFIL 2022-0 Yes [id number] TAKE 1 U nivers 20 mg 7-28 TABLET BY ity of tablet 00:00: MOUTH [place] 00 NEEDED FOR Medical ERECTILE Branch DYSFUNCTIO N. TADALAFIL 2022-0 Yes [id number] TAKE 1 U nivers 20 mg 7-28 TABLET BY ity of tablet 00:00: MOUTH [place] 00 NEEDED FOR Medical ERECTILE Branch DYSFUNCTIO N. TADALAFIL 2022-0 Yes [id number] TAKE 1 U nivers 20 mg 7-28 TABLET BY ity of tablet 00:00: MOUTH [place] 00 NEEDED FOR Medical ERECTILE Branch DYSFUNCTIO N. TADALAFIL 2022-0 Yes [id number] TAKE 1 U nivers 20 mg 7-28 TABLET BY ity of tablet 00:00: MOUTH [place] 00 NEEDED FOR Medical ERECTILE Branch DYSFUNCTIO N. TADALAFIL 2022-0 Yes [id number] TAKE 1 U nivers 20 mg 7-28 TABLET BY ity of tablet 00:00: MOUTH [place] 00 NEEDED FOR Medical ERECTILE Branch DYSFUNCTIO N. TADALAFIL 2022-0 Yes [id number] TAKE 1 U nivers 20 mg 7-28 TABLET BY ity of tablet 00:00: MOUTH [place] 00 NEEDED FOR Medical ERECTILE Branch DYSFUNCTIO N. TADALAFIL 2022-0 Yes [id number] TAKE 1 U nivers 20 mg 7-28 TABLET BY ity of tablet 00:00: MOUTH [place] 00 NEEDED FOR Medical ERECTILE Branch DYSFUNCTIO N. TADALAFIL 2022-0 Yes [id number] TAKE 1 U nivers 20 mg 7-28 TABLET BY ity of tablet 00:00: MOUTH [place] 00 NEEDED FOR Medical ERECTILE Branch DYSFUNCTIO N. TADALAFIL 2022-0 Yes [id number] TAKE 1 U nivers 20 mg 7-28 TABLET BY ity of tablet 00:00: MOUTH [place] 00 NEEDED FOR Medical ERECTILE Branch DYSFUNCTIO N. TADALAFIL 2022-0 Yes [id number] TAKE 1 U nivers 20 mg 7-28 TABLET BY ity of tablet 00:00: MOUTH [place] 00 NEEDED FOR Medical ERECTILE Branch DYSFUNCTIO N. TADALAFIL 2022-0 Yes [id number] TAKE 1 U nivers 20 mg 7-28 TABLET BY ity of tablet 00:00: MOUTH [place] 00 NEEDED FOR Medical ERECTILE Branch DYSFUNCTIO N. TADALAFIL 2022-0 Yes [id number] TAKE 1 U nivers 20 mg 7-28 TABLET BY ity of tablet 00:00: MOUTH [place] 00 NEEDED FOR Medical ERECTILE Branch DYSFUNCTIO N. TADALAFIL 2022-0 Yes [id number] TAKE 1 U nivers 20 mg 7-28 TABLET BY ity of tablet 00:00: MOUTH [place] 00 NEEDED FOR Medical ERECTILE Branch DYSFUNCTIO N. TADALAFIL 2022-0 Yes [id number] TAKE 1 U nivers 20 mg 7-28 TABLET BY ity of tablet 00:00: MOUTH [place] 00 NEEDED FOR Medical ERECTILE Branch DYSFUNCTIO N. TADALAFIL 2022-0 Yes [id number] TAKE 1 U nivers 20 mg 7-28 TABLET BY ity of tablet 00:00: MOUTH [place] 00 NEEDED FOR Medical ERECTILE Branch DYSFUNCTIO N. TADALAFIL 2022-0 Yes [id number] TAKE 1 U nivers 20 mg 7-28 TABLET BY ity of tablet 00:00: MOUTH [place] 00 NEEDED FOR Medical ERECTILE Branch DYSFUNCTIO N. TADALAFIL 2-0 Yes [id number] TAKE 1 U nivers 20 mg 7-28 TABLET BY ity of tablet 00:00: MOUTH [place] 00 NEEDED FOR Medical ERECTILE Branch DYSFUNCTIO N. TADALAFIL 2-0 Yes [id number] TAKE 1 U nivers 20 mg 7-28 TABLET BY ity of tablet 00:00: MOUTH [place] 00 NEEDED FOR Medical ERECTILE Branch DYSFUNCTIO N. TADALAFIL 2-0 Yes [id number] TAKE 1 U nivers 20 mg 7-28 TABLET BY ity of tablet 00:00: MOUTH [place] 00 NEEDED FOR Medical ERECTILE Branch DYSFUNCTIO N. TADALAFIL 2-0 Yes [id number] TAKE 1 U nivers 20 mg 7-28 TABLET BY ity of tablet 00:00: MOUTH [place] 00 NEEDED FOR Medical ERECTILE Branch DYSFUNCTIO N. TADALAFIL 2-0 Yes [id number] TAKE 1 [facility] nivers 20 mg 7-28 TABLET BY ity of tablet 00:00: MOUTH [place] 00 NEEDED FOR Medical ERECTILE Branch DYSFUNCTIO N. TADALAFIL 2021-0 Yes [id number] TAKE 1 [facility]ivers 20 mg 7-28 TABLET BY ity of tablet 00:00: MOUTH [place] 00 NEEDED FOR Medical ERECTILE Branch DYSFUNCTIO N. TADALAFIL 2-0 Yes [id number] TAKE 1 [facility]ivers 20 mg 7-28 TABLET BY ity of tablet 00:00: MOUTH [place] 00 NEEDED FOR Medical ERECTILE Branch DYSFUNCTIO N. TADALAFIL 2-0 Yes [id number] TAKE 1 [facility]ivers 20 mg 7-28 TABLET BY ity of tablet 00:00: MOUTH [place] 00 NEEDED FOR Medical ERECTILE Branch DYSFUNCTIO N. TADALAFIL 2022-0 2022- No [id number] TAKE 1 [facility] 20 mg 7-28 11-10 TABLET BY ity of tablet 00:00: 00:00 MOUTH [place] 00 :00 NEEDED FOR Medical ERECTILE Branch DYSFUNCTIO N. LOSARTAN 2-0 Yes TAKE 1 [facility] 100 mg 6-27 TABLET BY ity of tablet 00:00: MOUTH [place] 00 EVERY DAY Medical Branch PANTOPRAZOL 2022-0 Yes [id number] TAKE 1 [facility] E 40 mg EC 6-27 TABLET BY ity of tablet 00:00: MOUTH [place] 00 EVERY DAY Medical Branch LOSARTAN 2-0 Yes TAKE 1 [facility] 100 mg 6-27 TABLET BY ity of tablet 00:00: MOUTH [place] 00 EVERY DAY Medical Branch PANTOPRAZOL 2021-0 Yes [id number] TAKE 1 [facility] E 40 mg EC 6-27 TABLET BY ity of tablet 00:00: MOUTH [place] 00 EVERY DAY Medical Branch LOSARTAN 2-0 Yes TAKE 1 [facility] 100 mg 6-27 TABLET BY ity of tablet 00:00: MOUTH [place] 00 EVERY DAY Medical Branch PANTOPRAZOL 2021-0 Yes [id number] TAKE 1 [facility] E 40 mg EC 6-27 TABLET BY ity of tablet 00:00: [facility] 00 EVERY DAY Medical Branch LOSARTAN 2-0 Yes TAKE 1 [facility] 100 mg 6-27 TABLET BY ity of tablet 00:00: [facility] EVERY DAY Medical Branch PANTOPRAZOL 2021-0 Yes [id number] TAKE 1 [facility] E 40 mg EC 6-27 TABLET BY ity of tablet 00:00: MOUTH [place] 00 EVERY DAY Medical Branch LOSARTAN 2-0 Yes TAKE 1 [facility] 100 mg 6-27 TABLET BY ity of tablet 00:00: [facility] EVERY DAY Medical Branch PANTOPRAZOL 2021-0 Yes [id number] TAKE 1 [facility] E 40 mg EC 6-27 TABLET BY ity of tablet 00:00: MOUTH [place] 00 EVERY DAY Medical Branch LOSARTAN 2-0 Yes TAKE 1 [facility] 100 mg 6-27 TABLET BY ity of tablet 00:00: [facility] EVERY DAY Medical Branch PANTOPRAZOL 2022-0 Yes [id number] TAKE 1 [facility] E 40 mg EC 6-27 TABLET BY ity of tablet 00:00: [facility] 00 EVERY DAY Medical Branch LOSARTAN 2-0 Yes TAKE 1 [facility] 100 mg 6-27 TABLET BY ity of tablet 00:00: [facility] 00 EVERY DAY Medical Branch PANTOPRAZOL 2022-0 Yes [id number] TAKE 1 [facility] E 40 mg EC 6-27 TABLET BY ity of tablet 00:00: MOUTH [place] 00 EVERY DAY Medical Branch LOSARTAN 2-0 Yes TAKE 1 [facility] 100 mg 6-27 TABLET BY ity of tablet 00:00: [facility] EVERY DAY Medical Branch PANTOPRAZOL 2022-0 Yes [id number] TAKE 1 [facility] E 40 mg EC 6-27 TABLET BY ity of tablet 00:00: MOUTH [place] 00 EVERY DAY Medical Branch LOSARTAN 2021-0 Yes TAKE 1 [facility] 100 mg 6-27 TABLET BY ity of tablet 00:00: MOUTH [place] 00 EVERY DAY Medical Branch PANTOPRAZOL 2021-0 Yes [id number] TAKE 1 [facility] E 40 mg EC 6-27 TABLET BY ity of tablet 00:00: MOUTH [place] 00 EVERY DAY Medical Branch LOSARTAN 2021-0 Yes TAKE 1 [facility] 100 mg 6-27 TABLET BY ity of tablet 00:00: MOUTH [place] 00 EVERY DAY Medical Branch PANTOPRAZOL 2021-0 Yes [id number] TAKE 1 [facility] E 40 mg EC 6-27 TABLET BY ity of tablet 00:00: MOUTH [place] 00 EVERY DAY Medical Branch LOSARTAN 2021-0 Yes TAKE 1 [facility] 100 mg 6-27 TABLET BY ity of tablet 00:00: MOUTH [place] 00 EVERY DAY Medical Branch PANTOPRAZOL 2021-0 Yes [id number] TAKE 1 [facility] E 40 mg EC 6-27 TABLET BY ity of tablet 00:00: MOUTH [place] 00 EVERY DAY Medical Branch LOSARTAN 2021-0 Yes TAKE 1 [facility] 100 mg 6-27 TABLET BY ity of tablet 00:00: MOUTH [place] 00 EVERY DAY Medical Branch PANTOPRAZOL 2021-0 Yes [id number] TAKE 1 [facility] E 40 mg EC 6-27 TABLET BY ity of tablet 00:00: MOUTH [place] 00 EVERY DAY Medical Branch LOSARTAN 2-0 Yes TAKE 1 [facility] 100 mg 6-27 TABLET BY ity of tablet 00:00: MOUTH [place] 00 EVERY DAY Medical Branch PANTOPRAZOL 2-0 Yes [id number] TAKE 1 [facility] E 40 mg EC 6-27 TABLET BY ity of tablet 00:00: MOUTH [place] 00 EVERY DAY Medical Branch LOSARTAN 2-0 Yes TAKE 1 [facility] 100 mg 6-27 TABLET BY ity of tablet 00:00: MOUTH [place] 00 EVERY DAY Medical Branch PANTOPRAZOL 2-0 Yes [id number] TAKE 1 [facility] E 40 mg EC 6-27 TABLET BY ity of tablet 00:00: MOUTH [place] 00 EVERY DAY Medical Branch LOSARTAN 2-0 Yes TAKE 1 [facility] 100 mg 6-27 TABLET BY ity of tablet 00:00: MOUTH [place] 00 EVERY DAY Medical Branch PANTOPRAZOL 2021-0 Yes [id number] TAKE 1 [facility] E 40 mg EC 6-27 TABLET BY ity of tablet 00:00: MOUTH [place] 00 EVERY DAY Medical Branch LOSARTAN 2021-0 Yes TAKE 1 [facility] 100 mg 6-27 TABLET BY ity of tablet 00:00: MOUTH [place] EVERY DAY Medical Branch PANTOPRAZOL 2021-0 Yes [id number] TAKE 1 [facility] E 40 mg EC 6-27 TABLET BY ity of tablet 00:00: MOUTH [place] 00 EVERY DAY Medical Branch LOSARTAN 2-0 Yes TAKE 1 [facility] 100 mg 6-27 TABLET BY ity of tablet 00:00: MOUTH [place] 00 EVERY DAY Medical Branch PANTOPRAZOL 2021-0 Yes [id number] TAKE 1 [facility] E 40 mg EC 6-27 TABLET BY ity of tablet 00:00: MOUTH [place] 00 EVERY DAY Medical Branch LOSARTAN 2021-0 Yes TAKE 1 [facility] 100 mg 6-27 TABLET BY ity of tablet 00:00: MOUTH [place] 00 EVERY DAY Medical Branch PANTOPRAZOL 2021-0 Yes [id number] TAKE 1 [facility] E 40 mg EC 6-27 TABLET BY ity of tablet 00:00: MOUTH [place] EVERY DAY Medical Branch LOSARTAN 2021-0 Yes TAKE 1 [facility] 100 mg 6-27 TABLET BY ity of tablet 00:00: MOUTH [place] 00 EVERY DAY Medical Branch PANTOPRAZOL 2021-0 Yes [id number] TAKE 1 [facility] E 40 mg EC 6-27 TABLET BY ity of tablet 00:00: [facility] 00 EVERY DAY Medical Branch LOSARTAN 2-0 Yes TAKE 1 [facility] 100 mg 6-27 TABLET BY ity of tablet 00:00: [facility] 00 EVERY DAY Medical Branch PANTOPRAZOL 2022-0 Yes [id number] TAKE 1 [facility] E 40 mg EC 6-27 TABLET BY ity of tablet 00:00: MOUTH [place] 00 EVERY DAY Medical Branch LOSARTAN 2-0 Yes TAKE 1 [facility] 100 mg 6-27 TABLET BY ity of tablet 00:00: [facility] 00 EVERY DAY Medical Branch PANTOPRAZOL 2022-0 Yes [id number] TAKE 1 [facility] E 40 mg EC 6-27 TABLET BY ity of tablet 00:00: MOUTH [place] 00 EVERY DAY Medical Branch LOSARTAN 2-0 Yes TAKE 1 [facility] 100 mg 6-27 TABLET BY ity of tablet 00:00: [facility] 00 EVERY DAY Medical Branch PANTOPRAZOL 2022-0 Yes [id number] TAKE 1 [facility] E 40 mg EC 6-27 TABLET BY ity of tablet 00:00: MOUTH [place] 00 EVERY DAY Medical Branch PANTOPRAZOL 2021-0 Yes [id number] TAKE 1 [facility] E 40 mg EC 6-27 TABLET BY ity of tablet 00:00: MOUTH [place] 00 EVERY DAY Medical Branch PANTOPRAZOL 2021-0 Yes [id number] TAKE 1 [facility] E 40 mg EC 6-27 TABLET BY ity of tablet 00:00: MOUTH [place] EVERY DAY Medical Branch PANTOPRAZOL 2021-0 Yes [id number] TAKE 1 [facility] E 40 mg EC 6-27 TABLET BY ity of tablet 00:00: MOUTH [place] 00 EVERY DAY Medical Branch PANTOPRAZOL 2021-0 Yes [id number] TAKE 1 [facility] E 40 mg EC 6-27 TABLET BY ity of tablet 00:00: MOUTH [place] 00 EVERY DAY Medical Branch PANTOPRAZOL 2021-0 Yes [id number] TAKE 1 [facility] E 40 mg EC 6-27 TABLET BY ity of tablet 00:00: MOUTH [place] 00 EVERY DAY Medical Branch PANTOPRAZOL 2021-0 Yes [id number] TAKE 1 [facility] E 40 mg EC 6-27 TABLET BY ity of tablet 00:00: MOUTH [place] 00 EVERY DAY Medical Branch PANTOPRAZOL 2021-0 Yes [id number] TAKE 1 [facility] E 40 mg EC 6-27 TABLET BY ity of tablet 00:00: MOUTH [place] 00 EVERY DAY Medical Branch PANTOPRAZOL 2021-0 Yes [id number] TAKE 1 [facility] E 40 mg EC 6-27 TABLET BY ity of tablet 00:00: MOUTH [place] 00 EVERY DAY Medical Branch PANTOPRAZOL 2021-0 Yes [id number] TAKE 1 [facility] E 40 mg EC 6-27 TABLET BY ity of tablet 00:00: MOUTH [place] 00 EVERY DAY Medical Branch PANTOPRAZOL 2021-0 Yes [id number] TAKE 1 [facility] E 40 mg EC 6-27 TABLET BY ity of tablet 00:00: MOUTH [place] 00 EVERY DAY Medical Branch PANTOPRAZOL 2021-0 Yes [id number] TAKE 1 [facility] E 40 mg EC 6-27 TABLET BY ity of tablet 00:00: MOUTH [place] 00 EVERY DAY Medical Branch PANTOPRAZOL 2021-0 Yes [id number] TAKE 1 [facility] E 40 mg EC 6-27 TABLET BY ity of tablet 00:00: MOUTH [place] 00 EVERY DAY Medical Branch PANTOPRAZOL 2021-0 Yes [id number] TAKE 1 [facility] E 40 mg EC 6-27 TABLET BY ity of tablet 00:00: MOUTH [place] 00 EVERY DAY Medical Branch PANTOPRAZOL 2021-0 Yes [id number] TAKE 1 [facility] E 40 mg EC 6-27 TABLET BY ity of tablet 00:00: MOUTH [place] 00 EVERY DAY Medical Branch PANTOPRAZOL 2021-0 Yes [id number] TAKE 1 [facility] E 40 mg EC 6-27 TABLET BY ity of tablet 00:00: MOUTH [place] EVERY DAY Medical Branch PANTOPRAZOL 2021-0 Yes [id number] TAKE 1 [facility] E 40 mg EC 6-27 TABLET BY ity of tablet 00:00: MOUTH [place] 00 EVERY DAY Medical Branch PANTOPRAZOL 2021-0 Yes [id number] TAKE 1 [facility] E 40 mg EC 6-27 TABLET BY ity of tablet 00:00: [facility] EVERY DAY Medical Branch PANTOPRAZOL 2021-0 Yes [id number] TAKE 1 [facility] E 40 mg EC 6-27 TABLET BY ity of tablet 00:00: [facility] EVERY DAY Medical Branch PANTOPRAZOL 2021-0 Yes [id number] TAKE 1 [facility] E 40 mg EC 6-27 TABLET BY ity of tablet 00:00: MOUTH [place] EVERY DAY Medical Branch PANTOPRAZOL 2021-0 Yes [id number] TAKE 1 [facility] E 40 mg EC 6-27 TABLET BY ity of tablet 00:00: [facility] EVERY DAY Medical Branch PANTOPRAZOL 2021-0 Yes [id number] TAKE 1 [facility] E 40 mg EC 6-27 TABLET BY ity of tablet 00:00: [facility] EVERY DAY Medical Branch PANTOPRAZOL 2021-0 Yes [id number] TAKE 1 [facility] E 40 mg EC 6-27 TABLET BY ity of tablet 00:00: [facility] 00 EVERY DAY Medical Branch PANTOPRAZOL 2021-0 Yes [id number] TAKE 1 [facility] E 40 mg EC 6-27 TABLET BY ity of tablet 00:00: [facility] 00 EVERY DAY Medical Branch PANTOPRAZOL 2021-0 Yes [id number] TAKE 1 [facility] E 40 mg EC 6-27 TABLET BY ity of tablet 00:00: [facility] 00 EVERY DAY Medical Branch PANTOPRAZOL 2021-0 Yes [id number] TAKE 1 [facility] E 40 mg EC 6-27 TABLET BY ity of tablet 00:00: [facility] EVERY DAY Medical Branch PANTOPRAZOL 2021-0 Yes [id number] TAKE 1 [facility] E 40 mg EC 6-27 TABLET BY ity of tablet 00:00: [facility] 00 EVERY DAY Medical Branch PANTOPRAZOL Yes [id number] TAKE 1 [facility] E 40 mg EC 6-27 TABLET BY ity of tablet 00:00: [facility] EVERY DAY Medical Branch PANTOPRAZOL Yes [id number] TAKE 1 [facility] E 40 mg EC 6-27 TABLET BY ity of tablet 00:00: [facility] EVERY DAY Medical Branch PANTOPRAZOL Yes [id number] TAKE 1 [facility] E 40 mg EC 6-27 TABLET BY ity of tablet 00:00: [facility] 00 EVERY DAY Medical Branch PANTOPRAZOL Yes [id number] TAKE 1 [facility] E 40 mg EC 6-27 TABLET BY ity of tablet 00:00: [facility] DAY Medical Branch PANTOPRAZOL Yes [id number] TAKE 1 [facility] E 40 mg EC 6-27 TABLET BY ity of tablet 00:00: [facility] DAY Medical Branch PANTOPRAZOL Yes [id number] TAKE 1 [facility] E 40 mg EC 6-27 TABLET BY ity of tablet 00:00: [facility] 00 DAY Medical Branch PANTOPRAZOL Yes [id number] TAKE 1 [facility] E 40 mg EC 6-27 TABLET BY ity of tablet 00:00: [facility] EVERY DAY Medical Branch LOSARTAN 0 2021- No TAKE 1 Un[facility] s 100 mg 6-27 10-07 TABLET BY ity of tablet 00:00: 00:00 [facility] 00 :00 EVERY DAY Medical Branch FLUTICASONE 0 Yes [id number] SPRAY 2 [facility] PROPIONATE 6-07 SPRAYS ity of 50 00:00: INTO EACH [place] mcg/actuati 00 NOSTRIL Medic al on nasal EVERY DAY Branch spray FLUTICASONE 0 Yes [id number] SPRAY 2 [facility] PROPIONATE 6-07 SPRAYS ity of 50 00:00: INTO EACH [place] mcg/actuati 00 NOSTRIL Medic al on nasal EVERY DAY Branch spray FLUTICASONE 2021- No [id number] SPRAY 2 [facility] PROPIONATE 6-07 09-07 SPRAYS ity of 50 00:00: 00:00 INTO EACH [place] mcg/actuati 00 :00 NOSTRIL Medic al on nasal EVERY DAY Branch spray FLUTICASONE 2- No [id number] SPRAY 2 [facility] PROPIONATE 01-04 SPRAYS ity of 50 00:00: 00:00 INTO EACH [facility]/actuati 00 :00 NOSTRIL Medic al on nasal EVERY DAY Branch spray blood sugar 2021-0 Yes [id number] Use 6 U nivers diagnostic 4-12 times ity of (CONTOUR 00:00: [place]. [place] NEXT TEST 00 E11.69 Medical STRIPS) Branch strip blood sugar 2-0 Yes [id number] Use 6 U nivers diagnostic 4-12 times ity of (CONTOUR 00:00: daily. DX [place] NEXT TEST 00 E11.69 Medical STRIPS) Branch strip blood sugar 2022-0 Yes [id number] Use 6 U nivers diagnostic 4-12 times ity of (CONTOUR 00:00: daily. DX [place] NEXT TEST 00 E11.69 Medical STRIPS) Branch strip blood sugar 2022-0 Yes [id number] Use 6 U nivers diagnostic 4-12 times ity of (CONTOUR 00:00: daily. DX [place] NEXT TEST 00 E11.69 Medical STRIPS) Branch strip blood sugar 2022-0 Yes [id number] Use 6 U nivers diagnostic 4-12 times ity of (CONTOUR 00:00: daily. DX [place] NEXT TEST 00 E11.69 Medical STRIPS) Branch strip blood sugar 2022-0 Yes [id number] Use 6 U nivers diagnostic 4-12 times ity of (CONTOUR 00:00: daily. DX [place] NEXT TEST 00 E11.69 Medical STRIPS) Branch strip blood sugar 2022-0 Yes [id number] Use 6 U nivers diagnostic 4-12 times ity of (CONTOUR 00:00: daily. DX [place] NEXT TEST 00 E11.69 Medical STRIPS) Branch strip blood sugar 2022-0 Yes [id number] Use 6 U nivers diagnostic 4-12 times ity of (CONTOUR 00:00: daily. DX [place] NEXT TEST 00 E11.69 Medical STRIPS) Branch strip blood sugar 2022-0 Yes [id number] Use 6 U nivers diagnostic 4-12 times ity of (CONTOUR 00:00: daily. DX [place] NEXT TEST 00 E11.69 Medical STRIPS) Branch strip blood sugar 2022-0 Yes [id number] Use 6 U nivers diagnostic 4-12 times ity of (CONTOUR 00:00: daily. DX [place] NEXT TEST E11.69 Medical STRIPS) Branch strip blood sugar 2022-0 Yes [id number] Use 6 U nivers diagnostic 4-12 times ity of (CONTOUR 00:00: daily. DX [place] NEXT TEST E11.69 Medical STRIPS) Branch strip blood sugar 2022-0 Yes [id number] Use 6 U nivers diagnostic 4-12 times ity of (CONTOUR 00:00: daily. DX [place] NEXT TEST E11.69 Medical STRIPS) Branch strip blood sugar 2022-0 Yes [id number] Use 6 U nivers diagnostic 4-12 times ity of (CONTOUR 00:00: daily. DX [place] NEXT TEST E11.69 Medical STRIPS) Branch strip blood sugar 2022-0 Yes [id number] Use 6 U nivers diagnostic 4-12 times ity of (CONTOUR 00:00: daily. DX [place] NEXT TEST E11.69 Medical STRIPS) Branch strip blood sugar 2022-0 Yes [id number] Use 6 U nivers diagnostic 4-12 times ity of (CONTOUR 00:00: daily. DX [place] NEXT TEST E11.69 Medical STRIPS) Branch strip blood sugar 2022-0 Yes [id number] Use 6 [facility] nivers diagnostic 4-12 times ity of (CONTOUR 00:00: daily. DX [place] NEXT TEST E11.69 Medical STRIPS) Branch strip blood sugar 2022-0 Yes [id number] Use 6 U nivers diagnostic 4-12 times ity of (CONTOUR 00:00: daily. DX [place] NEXT TEST E11.69 Medical STRIPS) Branch strip blood sugar 2022-0 Yes [id number] Use 6 U nivers diagnostic 4-12 times ity of (CONTOUR 00:00: daily. DX [place] NEXT TEST E11.69 Medical STRIPS) Branch strip blood sugar 2022-0 Yes [id number] Use 6 U nivers diagnostic 4-12 times ity of (CONTOUR 00:00: daily. DX [place] NEXT TEST E11.69 Medical STRIPS) Branch strip blood sugar 2022-0 Yes [id number] Use 6 [facility] nivers diagnostic 4-12 times ity of (CONTOUR 00:00: daily. DX [place] NEXT TEST E11.69 Medical STRIPS) Branch strip blood sugar 2022-0 Yes [id number] Use 6 [facility] nivers diagnostic 4-12 times ity of (CONTOUR 00:00: daily. DX [place] NEXT TEST 00 E11.69 Medical STRIPS) Branch strip blood sugar 2022-0 Yes [id number] Use 6 U nivers diagnostic 4-12 times ity of (CONTOUR 00:00: daily. DX [place] NEXT TEST E11.69 Medical STRIPS) Branch strip blood sugar 2022-0 Yes [id number] Use 6 U nivers diagnostic 4-12 times ity of (CONTOUR 00:00: daily. DX [place] NEXT TEST E11.69 Medical STRIPS) Branch strip blood sugar 2022-0 Yes [id number] Use 6 U nivers diagnostic 4-12 times ity of (CONTOUR 00:00: daily. DX [place] NEXT TEST E11.69 Medical STRIPS) Branch strip blood sugar 2022-0 Yes [id number] Use 6 U nivers diagnostic 4-12 times ity of (CONTOUR 00:00: daily. DX [place] NEXT TEST E11.69 Medical STRIPS) Branch strip blood sugar 2022-0 Yes [id number] Use 6 U nivers diagnostic 4-12 times ity of (CONTOUR 00:00: daily. DX [place] NEXT TEST E11.69 Medical STRIPS) Branch strip blood sugar 2022-0 Yes [id number] Use 6 U nivers diagnostic 4-12 times ity of (CONTOUR 00:00: daily. DX [place] NEXT TEST E11.69 Medical STRIPS) Branch strip blood sugar 2022-0 Yes [id number] Use 6 U nivers diagnostic 4-12 times ity of (CONTOUR 00:00: daily. DX [place] NEXT TEST E11.69 Medical STRIPS) Branch strip blood sugar 2022-0 Yes [id number] Use 6 U nivers diagnostic 4-12 times ity of (CONTOUR 00:00: daily. DX [place] NEXT TEST E11.69 Medical STRIPS) Branch strip blood sugar 2022-0 Yes [id number] Use 6 [facility] nivers diagnostic 4-12 times ity of (CONTOUR 00:00: daily. DX [place] NEXT TEST E11.69 Medical STRIPS) Branch strip blood sugar 2022-0 Yes [id number] Use 6 [facility] nivers diagnostic 4-12 times ity of (CONTOUR 00:00: daily. DX [place] NEXT TEST E11.69 Medical STRIPS) Branch strip blood sugar 2022-0 Yes [id number] Use 6 [facility] nivers diagnostic 4-12 times ity of (CONTOUR 00:00: daily. DX [place] NEXT TEST 00 E11.69 Medical STRIPS) Branch strip blood sugar 2022-0 Yes [id number] Use 6 [facility] nivers diagnostic 4-12 times ity of (CONTOUR 00:00: daily. DX [place] NEXT TEST E11.69 Medical STRIPS) Branch strip blood sugar 2022-0 Yes [id number] Use 6 [facility] nivers diagnostic 4-12 times ity of (CONTOUR 00:00: daily. DX [place] NEXT TEST E11.69 Medical STRIPS) Branch strip blood sugar 2022-0 Yes [id number] Use 6 [facility] nivers diagnostic 4-12 times ity of (CONTOUR 00:00: daily. DX [place] NEXT TEST 00 E11.69 Medical STRIPS) Branch strip blood sugar 2022-0 Yes [id number] Use 6 [facility] nivers diagnostic 4-12 times ity of (CONTOUR 00:00: daily. DX [place] NEXT TEST 00 E11.69 Medical STRIPS) Branch strip blood sugar 2022-0 Yes [id number] Use 6 U nivers diagnostic 4-12 times ity of (CONTOUR 00:00: daily. DX [place] NEXT TEST E11.69 Medical STRIPS) Branch strip blood sugar 2022-0 Yes [id number] Use 6 [facility] nivers diagnostic 4-12 times ity of (CONTOUR 00:00: daily. [place] NEXT TEST E11.69 Medical STRIPS) Branch strip blood sugar 2022-0 Yes [id number] Use 6 U nivers diagnostic 4-12 times ity of (CONTOUR 00:00: daily. DX [place] NEXT TEST 00 E11.69 Medical STRIPS) Branch strip blood sugar 2022-0 Yes [id number] Use 6 [facility] nivers diagnostic 4-12 times ity of (CONTOUR 00:00: daily. DX [place] NEXT TEST 00 E11.69 Medical STRIPS) Branch strip blood sugar 2022-0 Yes [id number] Use 6 [facility] nivers diagnostic 4-12 times ity of (CONTOUR 00:00: daily. [place] NEXT TEST 00 E11.69 Medical STRIPS) Branch strip blood sugar 2022-0 Yes [id number] Use 6 [facility] nivers diagnostic 4-12 times ity of (CONTOUR 00:00: daily. [place] NEXT TEST 00 E11.69 Medical STRIPS) Branch strip blood sugar 2022-0 Yes [id number] Use 6 [facility] nivers diagnostic 4-12 times ity of (CONTOUR 00:00: daily. DX [place] NEXT TEST 00 E11.69 Medical STRIPS) Branch strip blood sugar 2022-0 Yes [id number] Use 6 U nivers diagnostic 4-12 times ity of (CONTOUR 00:00: daily. DX [place] NEXT TEST E11.69 Medical STRIPS) Branch strip blood sugar 2022-0 Yes [id number] Use 6 [facility] nivers diagnostic 4-12 times ity of (CONTOUR 00:00: daily. DX [place] NEXT TEST E11.69 Medical STRIPS) Branch strip blood sugar 2022-0 Yes [id number] Use 6 [facility] nivers diagnostic 4-12 times ity of (CONTOUR 00:00: daily. DX [place] NEXT TEST 00 E11.69 Medical STRIPS) Branch strip blood sugar 2022-0 Yes [id number] Use 6 [facility] nivers diagnostic 4-12 times ity of (CONTOUR 00:00: daily. [place] NEXT TEST 00 E11.69 Medical STRIPS) Branch strip blood sugar 2022-0 Yes [id number] Use 6 U nivers diagnostic 4-12 times ity of (CONTOUR 00:00: daily. [place] NEXT TEST 00 E11.69 Medical STRIPS) Branch strip blood sugar 2022-0 Yes [id number] Use 6 U nivers diagnostic 4-12 times ity of (CONTOUR 00:00: daily. [place] NEXT TEST 00 E11.69 Medical STRIPS) Branch strip blood sugar 2022-0 Yes [id number] Use 6 U nivers diagnostic 4-12 times ity of (CONTOUR 00:00: daily. [place] NEXT TEST 00 E11.69 Medical STRIPS) Branch strip blood sugar 2022-0 Yes [id number] Use 6 U nivers diagnostic 4-12 times ity of (CONTOUR 00:00: daily. [place] NEXT TEST 00 E11.69 Medical STRIPS) Branch strip blood sugar 2022-0 Yes [id number] Use 6 U nivers diagnostic 4-12 times ity of (CONTOUR 00:00: daily. [place] NEXT TEST 00 E11.69 Medical STRIPS) Branch strip blood sugar 2022-0 Yes [id number] Use 6 U nivers diagnostic 4-12 times ity of (CONTOUR 00:00: daily. [place] NEXT TEST 00 E11.69 Medical STRIPS) Branch strip blood sugar 2022-0 Yes [id number] Use 6 U nivers diagnostic 4-12 times ity of (CONTOUR 00:00: daily. DX [place] NEXT TEST 00 E11.69 Medical STRIPS) Branch strip blood sugar 2021-0 Yes [id number] Use 6 U nivers diagnostic 4-12 times [...] TIMES A Branch DAY [place] 2020- Yes [id number] TAKE 1 [facility] s 12,000-38,0 0-05 CAPSULE BY it y of 60,000 00:00: MOUTH 3 [place] unit 00 (THREE) Medical capsule TIMES Branch DAILY WITH MEALS. [place] 2020-07 Yes [id number] TAKE 1 [facility] s 12,000-38,0 0-05 CAPSULE BY it y of 60,000 00:00: MOUTH 3 [place] unit 00 (THREE) Medical capsule TIMES Branch DAILY WITH MEALS. [facility] 2020-07 Yes [id number] TAKE 1 [facility] s 12,000-38,0 0-05 CAPSULE BY it y of 60, 00:00: MOUTH 3 [place] 00 (THREE) Medical capsule TIMES Branch DAILY WITH MEALS. [facility] 2020-07 Yes [id number] TAKE 1 [facility] s 12,000-38,0 0-05 CAPSULE BY it y of 60, 00:00: MOUTH 3 [place] unit 00 (THREE) Medical capsule TIMES Branch DAILY WITH MEALS. CRE2020 Yes [id number] TAKE 1 [facility] s 12,000-38,0 0-05 CAPSULE BY it y of 60, 00:00: MOUTH 3 [place] 00 (THREE) Medical capsule TIMES Branch DAILY WITH MEALS. [facility] 2020-07 Yes [id number] TAKE 1 [facility] s 12,000-38,0 0-05 CAPSULE BY it y of 60, 00:00: MOUTH 3 [place] 00 (THREE) Medical capsule TIMES Branch DAILY WITH MEALS. CRE2020 Yes [id number] TAKE 1 [facility] s 12,000-38,0 0-05 CAPSULE BY it y of 60, 00:00: MOUTH 3 [place] unit 00 (THREE) Medical capsule TIMES Branch DAILY WITH MEALS. CRE2020 Yes [id number] TAKE 1 [facility] s 12,000-38,0 0-05 CAPSULE BY it y of 60, 00:00: MOUTH 3 [place] unit 00 (THREE) Medical capsule TIMES Branch DAILY WITH MEALS. CRE2020 Yes [id number] TAKE 1 [facility] s 12,000-38,0 0-05 CAPSULE BY it y of 60, 00:00: MOUTH 3 [place] unit 00 (THREE) Medical capsule TIMES Branch DAILY WITH MEALS. [place] 2020-07 Yes [id number] TAKE 1 [facility] s 12,000-38,0 0-05 CAPSULE BY it y of 00 -60,000 00:00: MOUTH 3 [place] unit 00 (THREE) Medical capsule TIMES Branch DAILY WITH MEALS. [facility] 2020-07 Yes [id number] TAKE 1 [facility] s 12,000-38,0 0-05 CAPSULE BY it y of 60, 00:00: MOUTH 3 [place] 00 (THREE) Medical capsule TIMES Branch DAILY WITH MEALS. [facility] 2020-07 Yes [id number] TAKE 1 [facility] s 12,000-38,0 0-05 CAPSULE BY it y of 60, 00:00: MOUTH 3 [place] 00 (THREE) Medical capsule TIMES Branch DAILY WITH MEALS. [facility] 2020-07 Yes [id number] TAKE 1 [facility] s 12,000-38,0 0-05 CAPSULE BY it y of 60, 00:00: MOUTH 3 [place] 00 (THREE) Medical capsule TIMES Branch DAILY WITH MEALS. [facility] 2020-07 Yes [id number] TAKE 1 [facility] s 12,000-38,0 0-05 CAPSULE BY it y of 60, 00:00: MOUTH 3 [place] 00 (THREE) Medical capsule TIMES Branch DAILY WITH MEALS. [facility] 2020-07 Yes [id number] TAKE 1 [facility] s 12,000-38,0 0-05 CAPSULE BY it y of 60, 00:00: MOUTH 3 [place] 00 (THREE) Medical capsule TIMES Branch DAILY WITH MEALS. [facility] 2020-07 Yes [id number] TAKE 1 [facility] s 12,000-38,0 0-05 CAPSULE BY it y of 60, 00:00: MOUTH 3 [place] 00 (THREE) Medical capsule TIMES Branch DAILY WITH MEALS. [facility] 2020-07 Yes [id number] TAKE 1 [facility] s 12,000-38,0 0-05 CAPSULE BY it y of 60, 00:00: MOUTH 3 [place] 00 (THREE) Medical capsule TIMES Branch DAILY WITH MEALS. [facility] 2020-07 Yes [id number] TAKE 1 [facility] s 12,000-38,0 0-05 CAPSULE BY it y of 60, 00:00: MOUTH 3 [place] 00 (THREE) Medical capsule TIMES Branch DAILY WITH MEALS. [facility] 2020-07 Yes [id number] TAKE 1 [facility] s 12,000-38,0 0-05 CAPSULE BY it y of 60, 00:00: MOUTH 3 [place] 00 (THREE) Medical capsule TIMES Branch DAILY WITH MEALS. [facility] 2020-07 Yes [id number] TAKE 1 [facility] s 12,000-38,0 0-05 CAPSULE BY it y of 60, 00:00: MOUTH 3 [place] 00 (THREE) Medical capsule TIMES Branch DAILY WITH MEALS. CRE2020 Yes [id number] TAKE 1 [facility] s 12,000-38,0 0-05 CAPSULE BY it y of 60, 00:00[place] 3 [place] (THREE) Medical capsule TIMES Branch DAILY WITH MEALS. CREON 2020-07 Yes [id number] TAKE 1 [facility] 12,000-38,0 0-05 CAPSULE BY it y of 60, 00:00: [place]TH [facility] [place] (THREE) Medical capsule TIMES Branch DAILY WITH MEALS. CRE2020 Yes [id number] TAKE 1 [facility] 12,000-38,0 0-05 CAPSULE BY it y of 60, 00:00: MOUTH 3 [place] (THREE) Medical capsule TIMES Branch DAILY WITH MEALS. CRE2020 Yes [id number] TAKE 1 [facility] 12,000-38,0 0-05 CAPSULE BY it y of 60, 00:00: MOUTH 3 [place] (THREE) Medical capsule TIMES Branch DAILY WITH MEALS. CRE2020 Yes [id number] TAKE 1 [facility] 12,000-38,0 0-05 CAPSULE BY it y of 60, 00:00: MOUTH 3 [place] (THREE) Medical capsule TIMES Branch DAILY WITH MEALS. CRE2020 Yes [id number] TAKE 1 [facility] 12,000-38,0 0-05 CAPSULE BY it y of 60, 00:00: MOUTH 3 [place] (THREE) Medical capsule TIMES Branch DAILY WITH MEALS. CRE2020 Yes [id number] TAKE 1 [facility] 12,000-38,0 0-05 CAPSULE BY it y of 60, 00:00: MOUTH 3 [place] (THREE) Medical capsule TIMES Branch DAILY WITH MEALS. CREON 2020-07 Yes [id number] TAKE 1 [facility] 12,000-38,0 0-05 CAPSULE BY it y of 60, 00:00: MOUTH 3 [place] (THREE) Medical capsule TIMES Branch DAILY WITH MEALS. CREON 2020-07 Yes [id number] TAKE 1 [facility] 12,000-38,0 0-05 CAPSULE BY it y of 00 60, 00:00: MOUTH 3 [place] (THREE) Medical capsule TIMES Branch DAILY WITH MEALS. CREON 2020-07 Yes [id number] TAKE 1 [facility] 12,000-38,0 0-05 CAPSULE BY it y of 60, 00:00: MOUTH 3 [place] (THREE) Medical capsule TIMES Branch DAILY WITH MEALS. CREON 2020-07 Yes [id number] TAKE 1 [facility] 12,000-38,0 0-05 CAPSULE BY it y of 60, 00:00: MOUTH 3 [place] (THREE) Medical capsule TIMES Branch DAILY WITH MEALS. CREON 2020-07 Yes [id number] TAKE 1 [facility] 12,000-38,0 0-05 CAPSULE BY it y of 60, 00:00: MOUTH 3 [place] (THREE) Medical capsule TIMES Branch DAILY WITH MEALS. CRE2020 Yes [id number] TAKE 1 [facility] 12,000-38,0 0-05 CAPSULE BY it y of 60, 00:00: MOUTH 3 [place] (THREE) Medical capsule TIMES Branch DAILY WITH MEALS. CREON 2020-07 Yes [id number] TAKE 1 [facility] 12,000-38,0 0-05 CAPSULE BY it y of 60, 00:00: MOUTH 3 [place] (THREE) Medical capsule TIMES Branch DAILY WITH MEALS. CREON 2020-07 Yes [id number] TAKE 1 [facility] 12,000-38,0 0-05 CAPSULE BY it y of 00 60,000 00:00: MOUTH 3 [place] (THREE) Medical capsule TIMES Branch DAILY WITH MEALS. CREON 2020-07 Yes [id number] TAKE 1 [facility] 12,000-38,0 0-05 CAPSULE BY it y of 00 -60,000 00:00: MOUTH 3 [place] 00 (THREE) Medical capsule TIMES Branch DAILY WITH MEALS. CREON 2020-07 Yes [id number] TAKE 1 [facility] 12,000-38,0 0-05 CAPSULE BY it y of 00 -60,000 00:00: MOUTH 3 [place] (THREE) Medical capsule TIMES Branch DAILY WITH MEALS. CREON 2020-07 Yes [id number] TAKE 1 [facility] 12,000-38,0 0-05 CAPSULE BY it y of 60, 00:00: MOUTH 3 [place] (THREE) Medical capsule TIMES Branch DAILY WITH MEALS. CREON 2020-07- No [id number] TAKE 1 [facility] 12,000-38,0 0-05 11-17 CAPSULE BY i ty of 00:00: 00:00 MOUTH 3 [place] [facility] 00 :00 (THREE) Medical capsule TIMES Branch DAILY WITH MEALS. insulin 2019-07 Yes USE IN [facility], 0-14 INSULIN ity of human, 00:00: PUMP UP TO [place] (HUMALOG 00 100 UNITS Medica l U-100 DAILY. 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 albuterol 2018-07 Yes [id number] 2{puff} Inhale 2 [facility] 90 1-21 Puffs ity of mcg/actuati 00:00: every 6 [place] [facility] inhaler 00 (six) Medical hours as Branch needed for Wheezing or Shortness of Breath. albuterol 2018-07 Yes [id number] 2{puff} Inhale 2 [facility] 90 1-21 Puffs ity of mcg/actuati 00:00: every 6 [place] [facility] inhaler 00 (six) Medical hours as Branch needed for Wheezing or Shortness of Breath. albuterol 2018-07 Yes [id number] 2{puff} Inhale 2 [facility] 90 1-21 Puffs ity of mcg/actuati 00:00: every 6 [place] [facility] inhaler 00 (six) Medical hours as Branch needed for Wheezing or Shortness of Breath. albuterol 2018-07 Yes [id number] 2{puff} Inhale 2 [facility] 90 1-21 Puffs ity of mcg/actuati 00:00: every 6 [place] [facility] inhaler 00 (six) Medical hours as Branch needed for Wheezing or Shortness of Breath. albuterol 2018-07 Yes [id number] 2{puff} Inhale 2 [facility] 90 1-21 Puffs ity of mcg/actuati 00:00: every 6 [place] [facility] inhaler 00 (six) Medical hours as Branch needed for Wheezing or Shortness of Breath. albuterol 2018-07 Yes [id number] 2{puff} Inhale 2 [facility] 90 1-21 Puffs ity of mcg/actuati 00:00: every 6 [place] [facility] inhaler 00 (six) Medical hours as Branch needed for Wheezing or Shortness of Breath. albuterol 2018-07 Yes [id number] 2{puff} Inhale 2 [facility] 90 1-21 Puffs ity of mcg/actuati 00:00: every 6 [place] [facility] inhaler 00 (six) Medical hours as Branch needed for Wheezing or Shortness of Breath. albuterol 2018-07 Yes [id number] 2{puff} Inhale 2 [facility] 90 1-21 Puffs ity of mcg/actuati 00:00: every 6 [place] [facility] inhaler 00 (six) Medical hours as Branch needed for Wheezing or Shortness of Breath. albuterol 2018-07 Yes [id number] 2{puff} Inhale 2 [facility] 90 1-21 Puffs ity of mcg/actuati 00:00: every 6 [place] [facility] inhaler 00 (six) Medical hours as Branch needed for Wheezing or Shortness of Breath. albuterol 2018-07 Yes [id number] 2{puff} Inhale 2 [facility] 90 1-21 Puffs ity of mcg/actuati 00:00: every 6 [place] [facility] inhaler 00 (six) Medical hours as Branch needed for Wheezing or Shortness of Breath. albuterol 2018-07 Yes [id number] 2{puff} Inhale 2 [facility] 90 1-21 Puffs ity of mcg/actuati 00:00: every 6 [place] [facility] inhaler 00 (six) Medical hours as Branch needed for Wheezing or Shortness of Breath. albuterol 2018-07 Yes [id number] 2{puff} Inhale 2 [facility] 90 1-21 Puffs ity of mcg/actuati 00:00: every 6 [place] [facility] inhaler 00 (six) Medical hours as Branch needed for Wheezing or Shortness of Breath. albuterol 2018-07 Yes [id number] 2{puff} Inhale 2 [facility] 90 1-21 Puffs ity of mcg/actuati 00:00: every 6 [place] [facility] inhaler 00 (six) Medical hours as Branch needed for Wheezing or Shortness of Breath. albuterol 2018-07 Yes [id number] 2{puff} Inhale 2 [facility] 90 1-21 Puffs ity of mcg/actuati 00:00: every 6 [place] [facility] inhaler 00 (six) Medical hours as Branch needed for Wheezing or Shortness of Breath. albuterol 2018-07 Yes [id number] 2{puff} Inhale 2 [facility] 90 1-21 Puffs ity of mcg/actuati 00:00: every 6 [place] [facility] inhaler 00 (six) Medical hours as Branch needed for Wheezing or Shortness of Breath. albuterol 2018-07 Yes [id number] 2{puff} Inhale 2 [facility] 90 1-21 Puffs ity of mcg/actuati 00:00: every 6 [place] [facility] inhaler 00 (six) Medical hours as Branch needed for Wheezing or Shortness of Breath. albuterol 2018-07 Yes [id number] 2{puff} Inhale 2 [facility] 90 1-21 Puffs ity of mcg/actuati 00:00: every 6 [place] [facility] inhaler 00 (six) Medical hours as Branch needed for Wheezing or Shortness of Breath. albuterol 2018-07 Yes [id number] 2{puff} Inhale 2 [facility] 90 1-21 Puffs ity of mcg/actuati 00:00: every 6 [place] [facility] inhaler 00 (six) Medical hours as Branch needed for Wheezing or Shortness of Breath. albuterol 2018-07 Yes [id number] 2{puff} Inhale 2 [facility] 90 1-21 Puffs ity of mcg/actuati 00:00: every 6 [place] [facility] inhaler 00 (six) Medical hours as Branch needed for Wheezing or Shortness of Breath. albuterol 2018-07 Yes [id number] 2{puff} Inhale 2 [facility] 90 1-21 Puffs ity of mcg/actuati 00:00: every 6 [place] [facility] inhaler 00 (six) Medical hours as Branch needed for Wheezing or Shortness of Breath. albuterol 2018-07 Yes [id number] 2{puff} Inhale 2 [facility] 90 1-21 Puffs ity of mcg/actuati 00:00: every 6 [place] [facility] inhaler 00 (six) Medical hours as Branch needed for Wheezing or Shortness of Breath. albuterol 2018-07 Yes [id number] 2{puff} Inhale 2 [facility] 90 1-21 Puffs ity of mcg/actuati 00:00: every 6 [place] [facility] inhaler 00 (six) Medical hours as Branch needed for Wheezing or Shortness of Breath. albuterol 2018-07 Yes [id number] 2{puff} Inhale 2 [facility] 90 1-21 Puffs ity of mcg/actuati 00:00: every 6 [place] [facility] inhaler 00 (six) Medical hours as Branch needed for Wheezing or Shortness of Breath. albuterol 2018-07 Yes [id number] 2{puff} Inhale 2 [facility] 90 1-21 Puffs ity of mcg/actuati 00:00: every 6 [place] [facility] inhaler 00 (six) Medical hours as Branch needed for Wheezing or Shortness of Breath. albuterol 2018-07 Yes [id number] 2{puff} Inhale 2 [facility] 90 1-21 Puffs ity of mcg/actuati 00:00: every 6 [place] [facility] inhaler 00 (six) Medical hours as Branch needed for Wheezing or Shortness of Breath. albuterol 2018-07 Yes [id number] 2{puff} Inhale 2 [facility] 90 1-21 Puffs ity of mcg/actuati 00:00: every 6 [place] [facility] inhaler 00 (six) Medical hours as Branch needed for Wheezing or Shortness of Breath. albuterol 2018-07 Yes [id number] 2{puff} Inhale 2 [facility] 90 1-21 Puffs ity of mcg/actuati 00:00: every 6 [place] [facility] inhaler 00 (six) Medical hours as Branch needed for Wheezing or Shortness of Breath. albuterol 2018-07 Yes [id number] 2{puff} Inhale 2 [facility] 90 1-21 Puffs ity of mcg/actuati 00:00: every 6 [place] [facility] inhaler 00 (six) Medical hours as Branch needed for Wheezing or Shortness of Breath. albuterol 2018-07 Yes [id number] 2{puff} Inhale 2 [facility] 90 1-21 Puffs ity of mcg/actuati 00:00: every 6 [place] [facility] inhaler 00 (six) Medical hours as Branch needed for Wheezing or Shortness of Breath. albuterol 2018-07 Yes [id number] 2{puff} Inhale 2 [facility] 90 1-21 Puffs ity of mcg/actuati 00:00: every 6 [place] [facility] inhaler 00 (six) Medical hours as Branch needed for Wheezing or Shortness of Breath. albuterol 2018-07 Yes [id number] 2{puff} Inhale 2 [facility] 90 1-21 Puffs ity of mcg/actuati 00:00: every 6 [place] [facility] inhaler 00 (six) Medical hours as Branch needed for Wheezing or Shortness of Breath. albuterol 2018-07 Yes [id number] 2{puff} Inhale 2 [facility] 90 1-21 Puffs ity of mcg/actuati 00:00: every 6 [place] [facility] inhaler 00 (six) Medical hours as Branch needed for Wheezing or Shortness of Breath. albuterol 2018-07 Yes [id number] 2{puff} Inhale 2 [facility] 90 1-21 Puffs ity of mcg/actuati 00:00: every 6 [place] [facility] inhaler 00 (six) Medical hours as Branch needed for Wheezing or Shortness of Breath. albuterol 2018-07 Yes [id number] 2{puff} Inhale 2 [facility] 90 1-21 Puffs ity of mcg/actuati 00:00: every 6 [place] [facility] inhaler 00 (six) Medical hours as Branch needed for Wheezing or Shortness of Breath. albuterol 2018-07 Yes [id number] 2{puff} Inhale 2 [facility] 90 1-21 Puffs ity of mcg/actuati 00:00: every 6 [place] [facility] inhaler 00 (six) Medical hours as Branch needed for Wheezing or Shortness of Breath. albuterol 2018-07 Yes [id number] 2{puff} Inhale 2 [facility] 90 1-21 Puffs ity of mcg/actuati 00:00: every 6 [place] [facility] inhaler 00 (six) Medical hours as Branch needed for Wheezing or Shortness of Breath. albuterol 2018-07 Yes [id number] 2{puff} Inhale 2 [facility] 90 1-21 Puffs ity of mcg/actuati 00:00: every 6 [place] [facility] inhaler 00 (six) Medical hours as Branch needed for Wheezing or Shortness of Breath. albuterol 2018-07 Yes [id number] 2{puff} Inhale 2 [facility] 90 1-21 Puffs ity of mcg/actuati 00:00: every 6 [place] [facility] inhaler 00 (six) Medical hours as Branch needed for Wheezing or Shortness of Breath. albuterol 2018-07 Yes [id number] 2{puff} Inhale 2 [facility] 90 1-21 Puffs ity of mcg/actuati 00:00: every 6 [place] [facility] inhaler 00 (six) Medical hours as Branch needed for Wheezing or Shortness of Breath. albuterol 2018-07 Yes [id number] 2{puff} Inhale 2 [facility] 90 1-21 Puffs ity of mcg/actuati 00:00: every 6 [place] [facility] inhaler 00 (six) Medical hours as Branch needed for Wheezing or Shortness of Breath. albuterol 2018-07 Yes [id number] 2{puff} Inhale 2 [facility] 90 1-21 Puffs ity of mcg/actuati 00:00: every 6 [place] [facility] inhaler 00 (six) Medical hours as Branch needed for Wheezing or Shortness of Breath. albuterol 2018-07 Yes [id number] 2{puff} Inhale 2 [facility] 90 1-21 Puffs ity of mcg/actuati 00:00: every 6 [place] [facility] inhaler 00 (six) Medical hours as Branch needed for Wheezing or Shortness of Breath. albuterol 2018-07 Yes [id number] 2{puff} Inhale 2 [facility] 90 1-21 Puffs ity of mcg/actuati 00:00: every 6 [place] [facility] inhaler 00 (six) Medical hours as Branch needed for Wheezing or Shortness of Breath. albuterol 2018-07 Yes [id number] 2{puff} Inhale 2 [facility] 90 1-21 Puffs ity of mcg/actuati 00:00: every 6 [place] [facility] inhaler 00 (six) Medical hours as Branch needed for Wheezing or Shortness of Breath. albuterol 2018-07 Yes [id number] 2{puff} Inhale 2 [facility] 90 1-21 Puffs ity of mcg/actuati 00:00: every 6 [place] [facility] inhaler 00 (six) Medical hours as Branch needed for Wheezing or Shortness of Breath. albuterol 2018-07 Yes [id number] 2{puff} Inhale 2 [facility] 90 1-21 Puffs ity of mcg/actuati 00:00: every 6 [place] [facility] inhaler 00 (six) Medical hours as Branch needed for Wheezing or Shortness of Breath. albuterol 2018-07 Yes [id number] 2{puff} Inhale 2 [facility] 90 1-21 Puffs ity of mcg/actuati 00:00: every 6 [place] [facility] inhaler 00 (six) Medical hours as Branch needed for Wheezing or Shortness of Breath. albuterol 2018-07 Yes [id number] 2{puff} Inhale 2 [facility] 90 1-21 Puffs ity of mcg/actuati 00:00: every 6 [place] [facility] inhaler 00 (six) Medical hours as Branch needed for Wheezing or Shortness of Breath. albuterol 2018-07 Yes [id number] 2{puff} Inhale 2 [facility] 90 1-21 Puffs ity of mcg/actuati 00:00: every 6 [place] [facility] inhaler 00 (six) Medical hours as Branch needed for Wheezing or Shortness of Breath. albuterol 2018-07 Yes [id number] 2{puff} Inhale 2 [facility] 90 1-21 Puffs ity of mcg/actuati 00:00: every 6 [place] [facility] inhaler 00 (six) Medical hours as Branch needed for Wheezing or Shortness of Breath. albuterol 2018-07 Yes [id number] 2{puff} Inhale 2 [facility] 90 1-21 Puffs ity of mcg/actuati 00:00: every 6 [place] [facility] inhaler 00 (six) Medical hours as Branch needed for Wheezing or Shortness of Breath. albuterol 2018-07 Yes [id number] 2{puff} Inhale 2 [facility] 90 1-21 Puffs ity of mcg/actuati 00:00: every 6 [place] [facility] inhaler 00 (six) Medical hours as Branch needed for Wheezing or Shortness of Breath. albuterol 2018-07 Yes [id number] 2{puff} Inhale 2 [facility] 90 1-21 Puffs ity of mcg/actuati 00:00: every 6 [place] [facility] inhaler 00 (six) Medical hours as Branch needed for Wheezing or Shortness of Breath. albuterol 2018-07 Yes [id number] 2{puff} Inhale 2 [facility] 90 1-21 Puffs ity of mcg/actuati 00:00: every 6 [place] [facility] inhaler 00 (six) Medical hours as Branch needed for Wheezing or Shortness of Breath. Diclofenac 2018-07 Yes [id number] Apply [facility] Sodium 0-21 9104 2mg-4mg to ity of (VOLTAREN) 00:00: affected [place] [facility] % gel 00 area 4 Medical times Branch daily Diclofenac 2018-07 Yes [id number] Apply [facility] Sodium 0-21 9104 2mg-4mg to ity of (VOLTAREN) 00:00: affected [place] [facility] % gel 00 area 4 Medical times Branch daily Diclofenac 2018-07 Yes [id number] Apply [facility] Sodium 0-21 9104 2mg-4mg to ity of (VOLTAREN) 00:00: affected [place] [facility] % gel 00 area 4 Medical times Branch daily Diclofenac 2018-07 Yes [id number] Apply [facility] Sodium 0-21 9104 2mg-4mg to ity of (VOLTAREN) 00:00: affected [place] [facility] % gel 00 area 4 Medical times Branch daily Diclofenac 2018-07 Yes [id number] Apply [facility] Sodium 0-21 9104 2mg-4mg to ity of (VOLTAREN) 00:00: affected [place] [facility] % gel 00 area 4 Medical times Branch daily Diclofenac 2018-07 Yes [id number] Apply [facility] Sodium 0-21 9104 2mg-4mg to ity of (VOLTAREN) 00:00: affected [place] [facility] % gel 00 area 4 Medical times Branch daily Diclofenac 2018-07 Yes [id number] Apply [facility] Sodium 0-21 9104 2mg-4mg to ity of (VOLTAREN) 00:00: affected [place] [facility] % gel 00 area 4 Medical times Branch daily Diclofenac 2018-07 Yes [id number] Apply [facility] Sodium 0-21 9104 2mg-4mg to ity of (VOLTAREN) 00:00: affected [place] [facility] % gel 00 area 4 Medical times Branch daily Diclofenac 2018-07 Yes [id number] Apply [facility] Sodium 0-21 9104 2mg-4mg to ity of (VOLTAREN) 00:00: affected [place] [facility] % gel 00 area 4 Medical times Branch daily Diclofenac 2018-07 Yes [id number] Apply [facility] Sodium 0-21 9104 2mg-4mg to ity of (VOLTAREN) 00:00: affected [place] [facility] % gel 00 area 4 Medical times Branch daily Diclofenac 2018-07 Yes [id number] Apply [facility] Sodium 0-21 9104 2mg-4mg to ity of (VOLTAREN) 00:00: affected [place] [facility] % gel 00 area 4 Medical times Branch daily Diclofenac 2018-07 Yes [id number] Apply [facility] Sodium 0-21 9104 2mg-4mg to ity of (VOLTAREN) 00:00: affected [place] [facility] % gel 00 area 4 Medical times Branch daily Diclofenac 2018-07 Yes [id number] Apply [facility] Sodium 0-21 9104 2mg-4mg to ity of (VOLTAREN) 00:00: affected [place] [facility] % gel 00 area 4 Medical times Branch daily Diclofenac 2018-07 Yes [id number] Apply [facility] Sodium 0-21 9104 2mg-4mg to ity of (VOLTAREN) 00:00: affected [place] [facility] % gel 00 area 4 Medical times Branch daily Diclofenac 2018-07 Yes [id number] Apply [facility] Sodium 0-21 9104 2mg-4mg to ity of (VOLTAREN) 00:00: affected [place] [facility] % gel 00 area 4 Medical times Branch daily Diclofenac 2018-07 Yes [id number] Apply [facility] Sodium 0-21 9104 2mg-4mg to ity of (VOLTAREN) 00:00: affected [place] [facility] % gel 00 area 4 Medical times Branch daily Diclofenac 2018-07 Yes [id number] Apply [facility] Sodium 0-21 9104 2mg-4mg to ity of (VOLTAREN) 00:00: affected [place] [facility] % gel 00 area 4 Medical times Branch daily Diclofenac 2018-07 Yes [id number] Apply [facility] Sodium 0-21 9104 2mg-4mg to ity of (VOLTAREN) 00:00: affected [place] [facility] % gel 00 area 4 Medical times Branch daily Diclofenac 2018-07 Yes [id number] Apply [facility] Sodium 0-21 9104 2mg-4mg to ity of (VOLTAREN) 00:00: affected [place] [facility] % gel 00 area 4 Medical times Branch daily Diclofenac 2018-07 Yes [id number] Apply [facility] Sodium 0-21 4105 2mg-4mg to ity of (VOLTAREN) 00:00: affected [place] [facility] % gel 00 area 4 Medical times Branch daily Diclofenac 2018-07 Yes [id number] Apply [facility] Sodium 0-21 4105 2mg-4mg to ity of (VOLTAREN) 00:00: affected [place] [facility] % gel 00 area 4 Medical times Branch daily Diclofenac 2018-07 Yes [id number] Apply [facility] Sodium 0-21 4105 2mg-4mg to ity of (VOLTAREN) 00:00: affected [place] [facility] % gel 00 area 4 Medical times Branch daily Diclofenac 2018-07 Yes [id number] Apply [facility] Sodium 0-21 4105 2mg-4mg to ity of (VOLTAREN) 00:00: affected [place] [facility] % gel 00 area 4 Medical times Branch daily Diclofenac 2018-07 Yes [id number] Apply [facility] Sodium 0-21 4105 2mg-4mg to ity of (VOLTAREN) 00:00: affected [place] [facility] % gel 00 area 4 Medical times Branch daily Diclofenac 2018-07 Yes [id number] Apply [facility] Sodium 0-21 4105 2mg-4mg to ity of (VOLTAREN) 00:00: affected [place] [facility] % gel 00 area 4 Medical times Branch daily Diclofenac 2018-07 Yes [id number] Apply [facility] Sodium 0-21 4105 2mg-4mg to ity of (VOLTAREN) 00:00: affected [place] [facility] % gel 00 area 4 Medical times Branch daily Diclofenac 2018-07 Yes [id number] Apply [facility] Sodium 0-21 4105 2mg-4mg to ity of (VOLTAREN) 00:00: affected [place] [facility] % gel 00 area 4 Medical times Branch daily Diclofenac 2018-07 Yes [id number] Apply [facility] Sodium 0-21 4105 2mg-4mg to ity of (VOLTAREN) 00:00: affected [place] [facility] % gel 00 area 4 Medical times Branch daily Diclofenac 2018-07 Yes [id number] Apply [facility] Sodium 0-21 4105 2mg-4mg to ity of (VOLTAREN) 00:00: affected [place] [facility] % gel 00 area 4 Medical times Branch daily Diclofenac 2018-07 Yes [id number] Apply [facility] Sodium 0-21 4105 2mg-4mg to ity of (VOLTAREN) 00:00: affected [place] [facility] 1 % gel 00 area 4 Medical times Branch daily Diclofenac 2018-07 Yes [id number] Apply [facility] Sodium 0-21 4105 2mg-4mg to ity of (VOLTAREN) 00:00: affected [place] [facility] 1 % gel 00 area 4 Medical times Branch daily Diclofenac 2018-07 Yes [id number] Apply [facility] Sodium 0-21 4105 2mg-4mg to ity of (VOLTAREN) 00:00: affected [place] [facility] 1 % gel 00 area 4 Medical times Branch daily Diclofenac 2018-07 Yes [id number] Apply [facility] Sodium 0-21 4105 2mg-4mg to ity of (VOLTAREN) 00:00: affected [place] [facility] 1 % gel 00 area 4 Medical times Branch daily Diclofenac 2018-07 Yes [id number] Apply [facility] Sodium 0-21 4105 2mg-4mg to ity of (VOLTAREN) 00:00: affected [place] [facility] 1 % gel 00 area 4 Medical times Branch daily Diclofenac 2018-07 Yes [id number] Apply [facility] Sodium 0-21 4105 2mg-4mg to ity of (VOLTAREN) 00:00: affected [place] [facility] 1 % gel 00 area 4 Medical times Branch daily Diclofenac 2018-07 Yes [id number] Apply [facility] Sodium 0-21 4105 2mg-4mg to ity of (VOLTAREN) 00:00: affected [place] [facility] 1 % gel 00 area 4 Medical times Branch daily Diclofenac 2019- Yes [id number] Apply [facility] Sodium 0-21 4105 2mg-4mg to ity of (VOLTAREN) 00:00: affected [place] as 1 % gel 00 area 4 Medical times Branch daily Diclofenac 2018-07 Yes [id number] Apply [facility] Sodium 0-21 4105 2mg-4mg to ity of (VOLTAREN) 00:00: affected [place] as 1 % gel 00 area 4 Medical times Branch daily Diclofenac 2018-07 Yes [id number] Apply [facility] Sodium 0-21 4105 2mg-4mg to ity of (VOLTAREN) 00:00: affected [place] as 1 % gel 00 area 4 Medical times Branch daily Diclofenac 2018-07 Yes [id number] Apply [facility] Sodium 0-21 4105 2mg-4mg to ity of (VOLTAREN) 00:00: affected [place] as 1 % gel 00 area 4 Medical times Branch daily Diclofenac 2018-07 Yes [id number] Apply [facility] Sodium 0-21 4105 2mg-4mg to ity of (VOLTAREN) 00:00: affected [place] 1 % gel 00 area 4 Medical times Branch daily Diclofenac 2018-07 Yes [id number] Apply [facility] Sodium 0-21 4105 2mg-4mg to ity of (VOLTAREN) 00:00: affected [place] 1 % gel 00 area 4 Medical times Branch daily Diclofenac 2018-07- No [id number] Apply [facility] Sodium 0-21 12-01 4105 2mg-4mg to ity of (VOLTAREN) 00:00: 00:00 affected [place] 1 % gel 00 :00 area 4 Medical times Branch daily MONTELUKAST 2019-0 Yes [id number] TAKE 1 [facility] 10 mg 8-02 TABLET BY ity of tablet 00:00: MOUTH [place] 00 EVERY DAY Medical Branch MONTELUKAST 2019-0 Yes [id number] TAKE 1 [facility] 10 mg 8-02 TABLET BY ity of tablet 00:00: MOUTH [place] 00 EVERY DAY Medical Branch MONTELUKAST 2019-0 Yes [id number] TAKE 1 [facility] 10 mg 8-02 TABLET BY ity of tablet 00:00: MOUTH [place] 00 EVERY DAY Medical Branch MONTELUKAST 2019-0 Yes [id number] TAKE 1 [facility] 10 mg 8-02 TABLET BY ity of tablet 00:00: MOUTH [place] 00 EVERY DAY Medical Branch MONTELUKAST 2019-0 Yes [id number] TAKE 1 [facility] 10 mg 8-02 TABLET BY ity of tablet 00:00: MOUTH [place] 00 EVERY DAY Medical Branch MONTELUKAST 2019-0 Yes [id number] TAKE 1 [facility] 10 mg 8-02 TABLET BY ity of tablet 00:00: MOUTH [place] 00 EVERY DAY Medical Branch MONTELUKAST 2019-0 Yes [id number] TAKE 1 [facility] 10 mg 8-02 TABLET BY ity of tablet 00:00: MOUTH [place] 00 EVERY DAY [facility] [place] MONTELUKAST 2019-0 Yes [id number] TAKE 1 [facility] 10 mg 8-02 TABLET BY ity of tablet 00:00: MOUTH [place] 00 EVERY DAY Medical Branch MONTELUKAST 2019-0 Yes [id number] TAKE 1 [facility] 10 mg 8-02 TABLET BY ity of tablet 00:00: MOUTH [place] 00 EVERY DAY Medical Branch MONTELUKAST 2019-0 Yes [id number] TAKE 1 [facility] 10 mg 8-02 TABLET BY ity of tablet 00:00: MOUTH [place] 00 EVERY DAY Medical Branch MONTELUKAST 2019-0 Yes [id number] TAKE 1 [facility] 10 mg 8-02 TABLET BY ity of tablet 00:00: MOUTH [place] 00 EVERY DAY Medical Branch MONTELUKAST 2019-0 Yes [id number] TAKE 1 [facility] 10 mg 8-02 TABLET BY ity of tablet 00:00: MOUTH [place] 00 EVERY DAY Medical Branch MONTELUKAST 2019-0 Yes [id number] TAKE 1 [facility] 10 mg 8-02 TABLET BY ity of tablet 00:00: MOUTH [place] 00 EVERY DAY Medical Branch MONTELUKAST 2019-0 Yes [id number] TAKE 1 [facility] 10 mg 8-02 TABLET BY ity of tablet 00:00: MOUTH [place] 00 EVERY DAY Medical Branch MONTELUKAST 2019-0 Yes [id number] TAKE 1 [facility] 10 mg 8-02 TABLET BY ity of tablet 00:00: MOUTH [place] 00 EVERY DAY Medical Branch MONTELUKAST 2019-0 Yes [id number] TAKE 1 [facility] 10 mg 8-02 TABLET BY ity of tablet 00:00: MOUTH [place] 00 EVERY DAY Medical Branch MONTELUKAST 2019-0 Yes [id number] TAKE 1 [facility] 10 mg 8-02 TABLET BY ity of tablet 00:00: MOUTH [place] 00 EVERY DAY Medical Branch MONTELUKAST 2019-0 Yes [id number] TAKE 1 [facility] 10 mg 8-02 TABLET BY ity of tablet 00:00: MOUTH [place] 00 EVERY DAY Medical Branch MONTELUKAST 2019-0 Yes [id number] TAKE 1 [facility] 10 mg 8-02 TABLET BY ity of tablet 00:00: MOUTH [place] 00 EVERY DAY Medical Branch MONTELUKAST 2019-0 Yes [id number] TAKE 1 [facility] 10 mg 8-02 TABLET BY ity of tablet 00:00: MOUTH [place] 00 EVERY DAY Medical Branch MONTELUKAST 2019-0 Yes [id number] TAKE 1 [facility] 10 mg 8-02 TABLET BY ity of tablet 00:00: MOUTH [place] 00 EVERY DAY Medical Branch MONTELUKAST 2019-0 Yes [id number] TAKE 1 [facility] 10 mg 8-02 TABLET BY ity of tablet 00:00: MOUTH [place] 00 EVERY DAY Medical Branch MONTELUKAST 2019-0 Yes [id number] TAKE 1 [facility] 10 mg 8-02 TABLET BY ity of tablet 00:00: MOUTH [place] 00 EVERY DAY Medical Branch MONTELUKAST 2019-0 Yes [id number] TAKE 1 [facility] 10 mg 8-02 TABLET BY ity of tablet 00:00: MOUTH [place] 00 EVERY DAY Medical Branch MONTELUKAST 2019-0 Yes [id number] TAKE 1 [facility] 10 mg 8-02 TABLET BY ity of tablet 00:00: MOUTH [place] 00 EVERY DAY Medical Branch MONTELUKAST 2019-0 Yes [id number] TAKE 1 [facility] 10 mg 8-02 TABLET BY ity of tablet 00:00: MOUTH [place] 00 EVERY DAY Medical Branch MONTELUKAST 2019-0 Yes [id number] TAKE 1 [facility] 10 mg 8-02 TABLET BY ity of tablet 00:00: MOUTH [place] 00 EVERY DAY Medical Branch MONTELUKAST 2019-0 Yes [id number] TAKE 1 [facility] 10 mg 8-02 TABLET BY ity of tablet 00:00: MOUTH [place] 00 EVERY DAY Medical Branch MONTELUKAST 2019-0 Yes [id number] TAKE 1 [facility] 10 mg 8-02 TABLET BY ity of tablet 00:00: MOUTH [place] 00 EVERY DAY Medical Branch MONTELUKAST 2019-0 Yes [id number] TAKE 1 [facility] 10 mg 8-02 TABLET BY ity of tablet 00:00: MOUTH [place] 00 EVERY DAY Medical Branch MONTELUKAST 2019-0 Yes [id number] TAKE 1 [facility] 10 mg 8-02 TABLET BY ity of tablet 00:00: MOUTH [place] 00 EVERY DAY Medical Branch MONTELUKAST 2019-0 Yes [id number] TAKE 1 [facility] 10 mg 8-02 TABLET BY ity of tablet 00:00: MOUTH [place] 00 EVERY DAY Medical Branch MONTELUKAST 2019-0 Yes [id number] TAKE 1 [facility] 10 mg 8-02 TABLET BY ity of tablet 00:00: MOUTH [place] 00 EVERY DAY Medical Branch MONTELUKAST 2019-0 Yes [id number] TAKE 1 [facility] 10 mg 8-02 TABLET BY ity of tablet 00:00: MOUTH [place] 00 EVERY DAY Medical Branch MONTELUKAST 2019-0 Yes [id number] TAKE 1 [facility] 10 mg 8-02 TABLET BY ity of tablet 00:00: MOUTH [place] 00 EVERY DAY Medical Branch MONTELUKAST 2019-0 Yes [id number] TAKE 1 [facility] 10 mg 8-02 TABLET BY ity of tablet 00:00: MOUTH [place] 00 EVERY DAY Medical Branch MONTELUKAST 2019-0 Yes [id number] TAKE 1 [facility] 10 mg 8-02 TABLET BY ity of tablet 00:00: MOUTH [place] 00 EVERY DAY Medical Branch MONTELUKAST 2019-0 Yes [id number] TAKE 1 [facility] 10 mg 8-02 TABLET BY ity of tablet 00:00: MOUTH [place] 00 EVERY DAY Medical Branch MONTELUKAST 2019-0 Yes [id number] TAKE 1 [facility] 10 mg 8-02 TABLET BY ity of tablet 00:00: MOUTH [place] 00 EVERY DAY Medical Branch MONTELUKAST 2019-0 Yes [id number] TAKE 1 [facility] 10 mg 8-02 TABLET BY ity of tablet 00:00: MOUTH [place] 00 EVERY DAY Medical Branch MONTELUKAST 2019-0 Yes [id number] TAKE 1 [facility] 10 mg 8-02 TABLET BY ity of tablet 00:00: MOUTH [place] 00 EVERY DAY Medical Branch MONTELUKAST 2019-0 Yes [id number] TAKE 1 [facility] 10 mg 8-02 TABLET BY ity of tablet 00:00: MOUTH [place] 00 EVERY DAY Medical Branch MONTELUKAST 2019-0 Yes [id number] TAKE 1 [facility] 10 mg 8-02 TABLET BY ity of tablet 00:00: MOUTH [place] 00 EVERY DAY Medical Branch MONTELUKAST 2019-0 Yes [id number] TAKE 1 [facility] 10 mg 8-02 TABLET BY ity of tablet 00:00: MOUTH [place] 00 EVERY DAY Medical Branch MONTELUKAST 2019-0 Yes [id number] TAKE 1 [facility] 10 mg 8-02 TABLET BY ity of tablet 00:00: MOUTH [place] 00 EVERY DAY Medical Branch MONTELUKAST 2019-0 Yes [id number] TAKE 1 [facility] 10 mg 8-02 TABLET BY ity of tablet 00:00: MOUTH [place] 00 EVERY DAY Medical Branch MONTELUKAST 2019-0 Yes [id number] TAKE 1 [facility] 10 mg 8-02 TABLET BY ity of tablet 00:00: MOUTH [place] 00 EVERY DAY Medical Branch MONTELUKAST 2019-0 Yes [id number] TAKE 1 [facility] 10 mg 8-02 TABLET BY ity of tablet 00:00: MOUTH [place] 00 EVERY DAY Medical Branch MONTELUKAST 2019-0 Yes [id number] TAKE 1 [facility] 10 mg 8-02 TABLET BY ity of tablet 00:00: MOUTH [place] 00 EVERY DAY [facility] 0 Yes [id number] TAKE 1 [facility] 10 mg 8-02 TABLET BY ity of tablet 00:00: MOUTH [place] 00 EVERY DAY [facility] 0 Yes [id number] TAKE 1 [facility] 10 mg 8-02 TABLET BY ity of tablet 00:00: MOUTH [place] 00 EVERY DAY [facility] 0 Yes [id number] TAKE 1 [facility] 10 mg 8-02 TABLET BY ity of tablet 00:00: MOUTH [place] 00 EVERY DAY [facility] 0 Yes [id number] TAKE 1 [facility] 10 mg 8-02 TABLET BY ity of tablet 00:00: MOUTH [place] 00 EVERY DAY [facility] 0 Yes [id number] TAKE 1 [facility] 10 mg 8-02 TABLET BY ity of tablet 00:00: MOUTH [place] 00 EVERY DAY [facility] 0 Yes [id number] TAKE 1 [facility] 10 mg 8-02 TABLET BY ity of tablet 00:00: MOUTH [place] 00 EVERY DAY [facility] Nebulizers Yes Dispense Uni vers (VIXONE 7-12 [...] does not need the machine. Nebulizer Yes [id number] Use as U nivers Accessories 7-10 directed ity of Kit 00:00: [place] [facility] Nebulizer 2019-0 Yes [id number] Use as U nivers Accessories 7-10 directed ity of Kit 00:00: [place] [facility] Nebulizer 2019-0 Yes [id number] Use as U nivers Accessories 7-10 directed ity of Kit 00:00: [place] [facility] Nebulizer 2019-0 Yes [id number] Use as U nivers Accessories 7-10 directed ity of Kit 00:00: [place] [facility] Nebulizer 2019-0 Yes [id number] Use as U nivers Accessories 7-10 directed ity of Kit 00:00: [place] [facility] Nebulizer 2019-0 Yes [id number] Use as U nivers Accessories 7-10 directed ity of Kit 00:00: [place] [facility] Nebulizer 2019-0 Yes [id number] Use as U nivers Accessories 7-10 directed ity of Kit 00:00: [place] [facility] Nebulizer 2019-0 Yes [id number] Use as U nivers Accessories 7-10 directed ity of Kit 00:00: [place] [facility] Nebulizer 2019-0 Yes [id number] Use as U nivers Accessories 7-10 directed ity of Kit 00:00: [place] [facility] Nebulizer 2019-0 Yes [id number] Use as U nivers Accessories 7-10 directed ity of Kit 00:00: [place] [facility] Nebulizer 2019-0 Yes [id number] Use as U nivers Accessories 7-10 directed ity of Kit 00:00: [place] [facility] Nebulizer 2019-0 Yes [id number] Use as U nivers Accessories 7-10 directed ity of Kit 00:00: [place] [facility] Nebulizer 2019-0 Yes [id number] Use as U nivers Accessories 7-10 directed ity of Kit 00:00: [place] [facility] Nebulizer 2019-0 Yes [id number] Use as U nivers Accessories 7-10 directed ity of Kit 00:00: [place] [facility] Nebulizer 2019-0 Yes [id number] Use as U nivers Accessories 7-10 directed ity of Kit 00:00: [place] [facility] Nebulizer 2019-0 Yes [id number] Use as U nivers Accessories 7-10 directed ity of Kit 00:00: [place] [facility] Nebulizer 2019-0 Yes [id number] Use as U nivers Accessories 7-10 directed ity of Kit 00:00: [place] [facility] Nebulizer 2019-0 Yes [id number] Use as U nivers Accessories 7-10 directed ity of Kit 00:00: [place] [facility] Nebulizer 2019-0 Yes [id number] Use as U nivers Accessories 7-10 directed ity of Kit 00:00: [place] [facility] Nebulizer 2019-0 Yes [id number] Use as U nivers Accessories 7-10 directed ity of Kit 00:00: [place] [facility] Nebulizer 2019-0 Yes [id number] Use as U nivers Accessories 7-10 directed ity of Kit 00:00: [place] [facility] Nebulizer 2019-0 Yes [id number] Use as U nivers Accessories 7-10 directed ity of Kit 00:00: [place] [facility] Nebulizer 2019-0 Yes [id number] Use as U nivers Accessories 7-10 directed ity of Kit 00:00: [place] [facility] Nebulizer 2019-0 Yes [id number] Use as U nivers Accessories 7-10 directed ity of Kit 00:00: [place] [facility] Nebulizer 2019-0 Yes [id number] Use as U nivers Accessories 7-10 directed ity of Kit 00:00: [place] [facility] Nebulizer 2019-0 Yes [id number] Use as U nivers Accessories 7-10 directed ity of Kit 00:00: [place] [facility] Nebulizer 2019-0 Yes [id number] Use as U nivers Accessories 7-10 directed ity of Kit 00:00: [place] [facility] Nebulizer 2019-0 Yes [id number] Use as U nivers Accessories 7-10 directed ity of Kit 00:00: [place] [facility] Nebulizer 2019-0 Yes [id number] Use as U nivers Accessories 7-10 directed ity of Kit 00:00: [place] [facility] Nebulizer 2019-0 Yes [id number] Use as U nivers Accessories 7-10 directed ity of Kit 00:00: [place] [facility] Nebulizer 2019-0 Yes [id number] Use as U nivers Accessories 7-10 directed ity of Kit 00:00: [place] [facility] Nebulizer 2019-0 Yes [id number] Use as U nivers Accessories 7-10 directed ity of Kit 00:00: [place] [facility] Nebulizer 2019-0 Yes [id number] Use as U nivers Accessories 7-10 directed ity of Kit 00:00: [place] [facility] Nebulizer 2019-0 Yes [id number] Use as U nivers Accessories 7-10 directed ity of Kit 00:00: [place] [facility] Nebulizer 2019-0 Yes [id number] Use as U nivers Accessories 7-10 directed ity of Kit 00:00: [place] [facility] Nebulizer 2019-0 Yes [id number] Use as U nivers Accessories 7-10 directed ity of Kit 00:00: [place] [facility] Nebulizer 2019-0 Yes [id number] Use as U nivers Accessories 7-10 directed ity of Kit 00:00: [place] [facility] Nebulizer 2019-0 Yes [id number] Use as U nivers Accessories 7-10 directed ity of Kit 00:00: [place] [facility] Nebulizer 2019-0 Yes [id number] Use as U nivers Accessories 7-10 directed ity of Kit 00:00: [place] [address] Medical Branch Nebulizer 2019-0 Yes [id number] Use as U nivers Accessories 7-10 directed ity of Kit 00:00: [place] [facility] Nebulizer 2019-0 Yes [id number] Use as U nivers Accessories 7-10 directed ity of Kit 00:00: [place] [facility] Nebulizer 2019-0 Yes [id number] Use as U nivers Accessories 7-10 directed ity of Kit 00:00: [place] [facility] Nebulizer 2019-0 Yes [id number] Use as U nivers Accessories 7-10 directed ity of Kit 00:00: [place] [address] Medical Branch Nebulizer 2019-0 Yes [id number] Use as U nivers Accessories 7-10 directed ity of Kit 00:00: [place] [facility] Nebulizer 2019-0 Yes [id number] Use as U nivers Accessories 7-10 directed ity of Kit 00:00: [place] [address] Medical Branch Nebulizer 2019-0 Yes [id number] Use as U nivers Accessories 7-10 directed ity of Kit 00:00: [place] [facility] Nebulizer 2019-0 Yes [id number] Use as U nivers Accessories 7-10 directed ity of Kit 00:00: [place] [facility] Nebulizer 2019-0 Yes [id number] Use as U nivers Accessories 7-10 directed ity of Kit 00:00: [place] [facility] Nebulizer 2019-0 Yes [id number] Use as U nivers Accessories 7-10 directed ity of Kit 00:00: [place] [facility] Nebulizer 2019-0 Yes [id number] Use as U nivers Accessories 7-10 directed ity of Kit 00:00: [place] [facility] Nebulizer 2018-0 Yes [id number] Use as U nivers Accessories 7-10 directed ity of Kit 00:00: [place] [facility] Nebulizer 2019-0 Yes [id number] Use as U nivers Accessories 7-10 directed ity of Kit 00:00: [place] [facility] Nebulizer 2019-0 Yes [id number] Use as U nivers Accessories 7-10 directed ity of Kit 00:00: [place] [facility] Nebulizer 2019-0 Yes [id number] Use as U nivers Accessories 7-10 directed ity of Kit 00:00: [place] [facility] Nebulizer 2019-0 Yes [id number] Use as U nivers Accessories 7-10 directed ity of Kit 00:00: [place] [address] Medical Branch Immunizations Ordered Filled Immunization Date Status Comments [facility] e Immunization Name Name SARS-COV-2 COVID-19 2022-07-18 Completed Unive rsity of VACCINE 12 YRS+, 00:00:00 [facility] dical BIVALENT 0.5ML, IM, Branc h (MODERNA BOOSTER) SARS-COV-2 COVID-19 2022-07-18 Completed Unive rsity of VACCINE 12 YRS+, 00:00:00 [facility] dical BIVALENT 0.5ML, IM, Branc h (MODERNA BOOSTER) Pneumococcal 20 2022-03-27 Completed Universit y of Conjugate, PCV20 00:00:00 [facility] dical (Prevnar 20) Branch Influenza Virus 2022-03-27 Completed Universit y of Vaccine Quad .5 mL 00:00:00 [facility] IM 6+ MO Branch Pneumococcal [...] y of Vaccine Quad .5 mL 00:00:00 [place] [facility] IM 6+ MO Branch Influenza Virus 2021-04-23 Completed Universit y of Vaccine Quad .5 mL 00:00:00 [place] [facility] IM 6+ MO Branch Pneumococcal 2020-12-09 Completed University o f Polysaccharide, 00:00:00 [facility] ical PPSV23 (PNEUMOVAX) Branch Pneumococcal 2020-12-09 Completed University o f Polysaccharide, 00:00:00 [facility] ical PPSV23 (PNEUMOVAX) Branch Influenza Virus 2020-10-21 Completed Universit y of Vaccine Recomb Quad 00:00:00 [place] [facility] IM, Preserv and ABX Branc h Free 18-64 YRS Influenza Virus 2020-10-21 Completed Universit y of Vaccine Recomb Quad 00:00:00 [place] [facility] IM, Preserv and ABX Branc h [...] y of Vaccine Quad .5 mL 00:00:00 [place] [facility] IM 6+ MO Branch Influenza Virus [...] y of Vaccine Quad .5 mL 00:00:00 [place] [facility] IM 6+ MO Branch Influenza Virus [...] y of Vaccine Quad .5 mL 00:00:00 [place] [facility] 6+ MO Branch Influenza Virus 2020-03-26 Completed Universit y of Vaccine Quad .5 mL 00:00:00 [place] [facility] IM 6+ MO Branch Influenza Virus 2020-03-26 Completed Universit y of Vaccine Quad .5 mL 00:00:00 [facility] 6+ MO Branch Influenza Virus 2020-01-29 Completed Universit y of Vaccine 00:00:00 [facility] Influenza Virus 2020-01-29 Completed Universit y of Vaccine 00:00:00 [facility] Influenza Virus 2020-01-29 Completed Universit y of Vaccine 00:00:00 [facility] Influenza Virus 2020-01-29 Completed Universit y of Vaccine 00:00:00 [facility] Influenza Virus 2020-01-29 Completed Universit y of Vaccine 00:00:00 [facility] Influenza Virus 2020-01-29 Completed Universit y of Vaccine 00:00:00 [facility] Influenza Virus 2020-01-29 Completed Universit y of Vaccine 00:00:00 [facility] Influenza Virus 2020-01-29 Completed Universit y of Vaccine 00:00:00 [facility] Influenza Virus 2020-01-29 Completed Universit y of Vaccine 00:00:00 [facility] Influenza Virus 2020-01-29 Completed Universit y of Vaccine 00:00:00 [facility] Influenza Virus 2020-01-29 Completed Universit y of Vaccine 00:00:00 [facility] Influenza Virus 2020-01-29 Completed Universit y of Vaccine 00:00:00 [facility] Influenza Virus 2020-01-29 Completed Universit y of Vaccine 00:00:00 [facility] Influenza Virus 2020-01-29 Completed Universit y of Vaccine 00:00:00 [facility] Influenza Virus 2020-01-29 Completed Universit y of Vaccine 00:00:00 [facility] Influenza Virus 2020-01-29 Completed Universit y of Vaccine 00:00:00 [facility] Influenza Virus 2020-01-29 Completed Universit y of Vaccine 00:00:00 [facility] Influenza Virus 2020-01-29 Completed Universit y of Vaccine 00:00:00 [facility] Influenza Virus 2020-01-29 Completed Universit y of Vaccine 00:00:00 [facility] Influenza Virus 2020-01-29 Completed Universit y of Vaccine 00:00:00 [facility] Influenza Virus 2020-01-29 Completed Universit y of Vaccine 00:00:00 [facility] Influenza Virus 2020-01-29 Completed Universit y of Vaccine 00:00:00 [facility] Influenza Virus 2020-01-29 Completed Universit y of Vaccine 00:00:00 [facility] Influenza Virus 2020-01-29 Completed Universit y of Vaccine 00:00:00 [facility] Influenza Virus 2020-01-29 Completed Universit y of Vaccine 00:00:00 [facility] Influenza Virus 2020-01-29 Completed Universit y of Vaccine 00:00:00 [facility] Influenza Virus 2020-01-29 Completed Universit y of Vaccine 00:00:00 [facility] Influenza Virus 2020-01-29 Completed Universit y of Vaccine 00:00:00 [facility] Influenza Virus 2020-01-29 Completed Universit y of Vaccine 00:00:00 [facility] Influenza Virus 2020-01-29 Completed Universit y of Vaccine 00:00:00 [facility] Influenza Virus 2020-01-29 Completed Universit y of Vaccine 00:00:00 [facility] Influenza Virus 2020-01-29 Completed Universit y of Vaccine 00:00:00 [facility] Influenza Virus 2020-01-29 Completed Universit y of Vaccine 00:00:00 [facility] Influenza Virus 2020-01-29 Completed Universit y of Vaccine 00:00:00 [facility] Influenza Virus 2020-01-29 Completed Universit y of Vaccine 00:00:00 [facility] Influenza Virus 2020-01-29 Completed Universit y of Vaccine 00:00:00 [facility] Influenza Virus 2020-01-29 Completed Universit y of Vaccine 00:00:00 [facility] Influenza Virus 2020-01-29 Completed Universit y of Vaccine 00:00:00 [facility] Influenza Virus 2020-01-29 Completed Universit y of Vaccine 00:00:00 [facility] Influenza Virus 2020-01-29 Completed Universit y of Vaccine 00:00:00 [facility] Influenza Virus 2020-01-29 Completed Universit y of Vaccine 00:00:00 [facility] Influenza Virus 2020-01-29 Completed Universit y of Vaccine 00:00:00 [facility] Influenza Virus 2020-01-29 Completed Universit y of Vaccine 00:00:00 [facility] Influenza Virus 2020-01-29 Completed Universit y of Vaccine 00:00:00 [facility] Influenza Virus 2020-01-29 Completed Universit y of Vaccine 00:00:00 [facility] Influenza Virus 2020-01-29 Completed Universit y of Vaccine 00:00:00 [facility] Influenza Virus 2020-01-29 Completed Universit y of Vaccine 00:00:00 [facility] Influenza Virus 2020-01-29 Completed Universit y of Vaccine 00:00:00 [facility] Influenza Virus 2020-01-29 Completed Universit y of Vaccine 00:00:00 [facility] Influenza Virus 2020-01-29 Completed Universit y of Vaccine 00:00:00 [facility] Influenza Virus 2020-01-29 Completed Universit y of Vaccine 00:00:00 [facility] Influenza Virus 2020-01-29 Completed Universit y of Vaccine 00:00:00 [facility] Influenza Virus 2020-01-29 Completed Universit y of Vaccine 00:00:00 [facility] Influenza Virus 2020-01-29 Completed Universit y of Vaccine 00:00:00 [facility] Influenza Virus 2020-01-29 Completed Universit y of Vaccine 00:00:00 [facility] Influenza Virus 2019-03-31 Completed Universit y of Vaccine Quad .5 mL 00:00:00 [facility] 6+ MO Branch Influenza Virus 2019-03-31 Completed Universit y of Vaccine Quad .5 mL 00:00:00 [facility] IM 6+ MO Branch Influenza Virus 2019-03-31 Completed Universit y of Vaccine Quad .5 mL 00:00:00 [place] [facility] 6+ MO Branch Influenza Virus 2019-03-31 Completed Universit y of Vaccine Quad .5 mL 00:00:00 [place] [facility] IM 6+ MO Branch Influenza Virus 2019-03-31 Completed Universit y of Vaccine Quad .5 mL 00:00:00 [place] [facility] IM 6+ MO Branch Influenza Virus 2019-03-31 Completed Universit y of Vaccine Quad .5 mL 00:00:00 [place] [facility] IM 6+ MO Branch Influenza Virus 2019-03-31 Completed Universit y of Vaccine Quad .5 mL 00:00:00 [place] [facility] IM 6+ MO Branch Influenza Virus 2019-03-31 Completed Universit y of Vaccine Quad .5 mL 00:00:00 [place] [facility] 6+ MO Branch Influenza Virus 2019-03-31 Completed Universit y of Vaccine Quad .5 mL 00:00:00 [facility] IM 6+ MO Branch Influenza Virus 2019-03-31 Completed Universit y of Vaccine Quad .5 mL 00:00:00 [facility] 6+ MO Branch Influenza Virus 2019-03-31 Completed Universit y of Vaccine Quad .5 mL 00:00:00 [facility] 6+ MO Branch Influenza Virus 2019-03-31 Completed Universit y of Vaccine Quad .5 mL 00:00:00 [facility] 6+ MO Branch Influenza Virus 2019-03-31 Completed Universit y of Vaccine Quad .5 mL 00:00:00 [facility] 6+ MO Branch Influenza Virus 2019-03-31 Completed Universit y of Vaccine Quad .5 mL 00:00:00 [facility] 6+ MO Branch Influenza Virus 2019-03-31 Completed Universit y of Vaccine Quad .5 mL 00:00:00 [place] [facility] 6+ MO Branch Influenza Virus 2019-03-31 Completed Universit y of Vaccine Quad .5 mL 00:00:00 [place] [facility] 6+ MO Branch Influenza Virus 2019-03-31 Completed Universit y of Vaccine Quad .5 mL 00:00:00 [place] [facility] 6+ MO Branch Influenza Virus 2019-03-31 Completed Universit y of Vaccine Quad .5 mL 00:00:00 [place] [facility] 6+ MO Branch Influenza Virus 2019-03-31 Completed Universit y of Vaccine Quad .5 mL 00:00:00 [place] [facility] 6+ MO Branch Influenza Virus 2019-03-31 Completed Universit y of Vaccine Quad .5 mL 00:00:00 [place] [facility] 6+ MO Branch Influenza Virus [...] y of Vaccine Quad .5 mL 00:00:00 [place] [facility] 6+ MO Branch Influenza Virus 2019-03-31 Completed [facility] .5 mL 00:00:00 [facility] Influenza Virus 2019-03-31 Completed [facility] .5 mL 00:00:00 [facility] Influenza Virus 2019-03-31 Completed [facility] .5 mL 00:00:00 [facility] Influenza Virus 2019-03-31 Completed [facility] .5 mL 00:00:00 [facility] Influenza Virus 2019-03-31 Completed [facility] .5 mL 00:00:00 [facility] Influenza Virus 2019-03-31 [...] y of [facility] .5 mL 00:00:00 [facility] Influenza Virus [...] y of [facility] .5 mL 00:00:00 [facility] Influenza Virus 2019-03-31 Completed [facility] .5 mL 00:00:00 [facility] Influenza Virus 2019-03-31 Completed [facility] .5 mL 00:00:00 [facility] Influenza Virus 2019-03-31 Completed [facility] .5 mL 00:00:00 [facility] Influenza Virus 2019-03-31 Completed [facility] .5 mL 00:00:00 [facility] Influenza Virus 2019-03-31 Completed [facility] .5 mL 00:00:00 [facility] Influenza Virus [...] y of [facility] .5 mL 00:00:00 [facility] Influenza Virus 2019-03-31 Completed [facility] .5 mL 00:00:00 [facility] Influenza Virus 2019-03-31 Completed [facility] .5 mL 00:00:00 [facility] 6+ [facility] Influenza Virus 2018-08-27 Completed [facility] IM 3+ 00:00:00 [facility] Influenza Virus 2018-08-27 Completed [facility] IM 3+ 00:00:00 [facility] Influenza Virus 2018-08-27 Completed [facility] IM 3+ 00:00:00 [facility] Influenza Virus 2018-08-27 Completed [facility] IM 3+ 00:00:00 [facility] Influenza Virus 2018-08-27 Completed [facility] IM 3+ 00:00:00 [facility] Influenza Virus 2018-08-27 Completed [facility] IM 3+ 00:00:00 [facility] Influenza Virus 2018-08-27 Completed [facility] IM 3+ 00:00:00 [facility] Influenza Virus 2018-08-27 Completed [facility] IM 3+ 00:00:00 [facility] Influenza Virus 2018-08-27 Completed [facility] IM 3+ 00:00:00 [facility] Influenza Virus 2018-08-27 Completed [facility] IM 3+ 00:00:00 [facility] Influenza Virus 2018-08-27 Completed [facility] IM 3+ 00:00:00 [facility] Influenza Virus 2018-08-27 Completed [facility] IM 3+ 00:00:00 [facility] Influenza Virus 2018-08-27 Completed [facility] IM 3+ 00:00:00 [facility] Influenza Virus 2018-08-27 Completed [facility] IM 3+ 00:00:00 [facility] Influenza Virus 2018-08-27 Completed [facility] IM 3+ 00:00:00 [facility] Influenza Virus 2018-08-27 Completed [facility] IM 3+ 00:00:00 [facility] Influenza Virus 2018-08-27 Completed [facility] IM 3+ 00:00:00 [facility] Influenza Virus 2018-08-27 Completed [facility] IM 3+ 00:00:00 [facility] Influenza Virus 2018-08-27 Completed [facility] IM 3+ 00:00:00 [facility] Influenza Virus 2018-08-27 Completed [facility] IM 3+ 00:00:00 [facility] Influenza Virus 2018-08-27 Completed [facility] IM 3+ 00:00:00 [facility] Influenza Virus 2018-08-27 Completed [facility] IM 3+ 00:00:00 [facility] Influenza Virus 2018-08-27 Completed [facility] IM 3+ 00:00:00 [facility] Influenza Virus 2018-08-27 Completed [facility] IM 3+ 00:00:00 [facility] Influenza Virus 2018-08-27 Completed [facility] IM 3+ 00:00:00 [facility] Influenza Virus 2018-08-27 Completed [facility] IM 3+ 00:00:00 [facility] Influenza Virus 2018-08-27 Completed [facility] IM 3+ 00:00:00 [facility] Influenza Virus 2018-08-27 Completed [facility] IM 3+ 00:00:00 [facility] Influenza Virus 2018-08-27 Completed [facility] IM 3+ 00:00:00 [facility] Influenza Virus 2018-08-27 Completed [facility] IM 3+ 00:00:00 [facility] Influenza Virus 2018-08-27 Completed [facility] IM 3+ 00:00:00 [facility] Influenza Virus 2018-08-27 Completed [facility] IM 3+ 00:00:00 [facility] Influenza Virus 2018-08-27 Completed [facility] IM 3+ 00:00:00 [facility] Influenza Virus 2018-08-27 Completed [facility] IM 3+ 00:00:00 [facility] Influenza Virus 2018-08-27 Completed [facility] IM 3+ 00:00:00 [facility] Influenza Virus 2018-08-27 Completed [facility] IM 3+ 00:00:00 [facility] Influenza Virus 2018-08-27 Completed [facility] IM 3+ 00:00:00 [facility] Influenza Virus 2018-08-27 Completed [facility] IM 3+ 00:00:00 [facility] Influenza Virus 2018-08-27 Completed [facility] IM 3+ 00:00:00 [facility] Influenza Virus 2018-08-27 Completed [facility] IM 3+ 00:00:00 [facility] Influenza Virus 2018-08-27 Completed [facility] IM 3+ 00:00:00 [facility] Influenza Virus 2018-08-27 Completed [facility] IM 3+ 00:00:00 [facility] Influenza Virus 2018-08-27 Completed [facility] IM 3+ 00:00:00 [facility] Influenza Virus 2018-08-27 Completed [facility] IM 3+ 00:00:00 [facility] Influenza Virus 2018-08-27 Completed [facility] IM 3+ 00:00:00 [facility] Influenza Virus 2018-08-27 Completed [facility] IM 3+ 00:00:00 [facility] Influenza Virus 2018-08-27 Completed [facility] IM 3+ 00:00:00 [facility] Influenza Virus 2018-08-27 Completed [facility] IM 3+ 00:00:00 [facility] Influenza Virus 2018-08-27 Completed [facility] IM 3+ 00:00:00 [facility] Influenza Virus 2018-08-27 Completed [facility] IM 3+ 00:00:00 [facility] Influenza Virus 2018-08-27 Completed [facility] IM 3+ 00:00:00 [facility] Influenza Virus 2018-08-27 Completed [facility] IM 3+ 00:00:00 [facility] Influenza Virus 2018-08-27 Completed [facility] IM 3+ 00:00:00 [facility] Influenza Virus 2018-08-27 Completed [facility] IM 3+ 00:00:00 [facility] Influenza Virus 2018-08-27 Completed [facility] IM 3+ 00:00:00 [facility] TDAP 2018-02-23 Completed [facility] of 00:00:00 [facility] TDAP 2018-02-23 Completed University of 00:00:00 [facility] TDAP 2018-02-23 Completed [facility] of 00:00:00 [facility] TDAP 2018-02-23 Completed [facility] 00:00:00 [facility] TDAP 2018-02-23 Completed [facility] of 00:00:00 [facility] TDAP 2018-02-23 Completed [facility] of 00:00:00 [facility] TDAP 2018-02-23 Completed [facility] of 00:00:00 [facility] TDAP 2018-02-23 Completed [facility] of 00:00:00 [facility] TDAP 2018-02-23 Completed [facility] of 00:00:00 [facility] TDAP 2018-02-23 Completed [facility] of 00:00:00 [facility] TDAP 2018-02-23 Completed [facility] of 00:00:00 [facility] TDAP 2018-02-23 Completed [facility] of 00:00:00 [facility] TDAP 2018-02-23 Completed [facility] of 00:00:00 [facility] TDAP 2018-02-23 Completed [facility] 00:00:00 [facility] TDAP 2018-02-23 Completed [facility] of 00:00:00 [facility] TDAP 2018-02-23 Completed [facility] of 00:00:00 [facility] TDAP 2018-02-23 Completed [facility] of 00:00:00 [facility] TDAP 2018-02-23 Completed [facility] 00:00:00 [facility] TDAP 2018-02-23 Completed [facility] 00:00:00 [facility] TDAP 2018-02-23 Completed [facility] of 00:00:00 [facility] TDAP 2018-02-23 Completed [facility] 00:00:00 [facility] TDAP 2018-02-23 Completed [facility] 00:00:00 [facility] TDAP 2018-02-23 Completed [facility] 00:00:00 [facility] TDAP 2018-02-23 Completed [facility] 00:00:00 [facility] TDAP 2018-02-23 Completed [facility] 00:00:00 [facility] TDAP 2018-02-23 Completed [facility] of 00:00:00 [facility] TDAP 2018-02-23 Completed [facility] 00:00:00 [facility] TDAP 2018-02-23 Completed [facility] of 00:00:00 [facility] TDAP 2018-02-23 Completed [facility] 00:00:00 [facility] TDAP 2018-02-23 Completed [facility] 00:00:00 [facility] TDAP 2018-02-23 Completed [facility] 00:00:00 [facility] TDAP 2018-02-23 Completed [facility] 00:00:00 [facility] TDAP 2018-02-23 Completed [facility] of 00:00:00 [facility] TDAP 2018-02-23 Completed [facility] of 00:00:00 [facility] TDAP 2018-02-23 Completed [facility] of 00:00:00 [facility] TDAP 2018-02-23 Completed [facility] of 00:00:00 [facility] TDAP 2018-02-23 Completed [facility] of 00:00:00 [facility] TDAP 2018-02-23 Completed [facility] of 00:00:00 [facility] TDAP 2018-02-23 Completed [facility] of 00:00:00 [facility] TDAP 2018-02-23 Completed [facility] 00:00:00 [facility] TDAP 2018-02-23 Completed [facility] of 00:00:00 [facility] TDAP 2018-02-23 Completed [facility] of 00:00:00 [facility] TDAP 2018-02-23 Completed [facility] 00:00:00 [facility] TDAP 2018-02-23 Completed [facility] of 00:00:00 [facility] TDAP 2018-02-23 Completed [facility] of 00:00:00 [facility] TDAP 2018-02-23 Completed [facility] of 00:00:00 [facility] TDAP 2018-02-23 Completed [facility] 00:00:00 [facility] TDAP 2018-02-23 Completed [facility] of 00:00:00 [facility] TDAP 2018-02-23 Completed [facility] of 00:00:00 [facility] TDAP 2018-02-23 Completed [facility] of 00:00:00 [facility] TDAP 2018-02-23 Completed [facility] of 00:00:00 [facility] TDAP 2018-02-23 Completed [facility] of 00:00:00 [facility] TDAP 2018-02-23 Completed [facility] of 00:00:00 [facility] TDAP 2018-02-23 Completed [facility] of 00:00:00 [facility] TDAP 2018-02-23 Completed [facility] of 00:00:00 [facility] Influenza Virus 2017-04-07 Completed [facility]it y of Vaccine 00:00:00 [facility] Influenza Virus 2017-04-07 Completed [facility] y of Vaccine 00:00:00 [facility] Influenza Virus 2017-04-07 Completed [facility] y of Vaccine 00:00:00 [facility] Influenza Virus 2017-04-07 Completed [facility] y of Vaccine 00:00:00 [facility] Influenza Virus 2017-04-07 Completed [facility]it y of Vaccine 00:00:00 [facility] Influenza Virus 2017-04-07 Completed [facility]it y of Vaccine 00:00:00 [facility] Influenza Virus 2017-04-07 Completed [facility] y of Vaccine 00:00:00 [facility] Influenza Virus 2017-04-07 Completed [facility] y of Vaccine 00:00:00 [facility] Influenza Virus 2017-04-07 Completed [facility] y of Vaccine 00:00:00 [facility] Influenza Virus 2017-04-07 Completed [facility] y of Vaccine 00:00:00 [facility] Influenza Virus 2017-04-07 Completed [facility] y of Vaccine 00:00:00 [facility] Influenza Virus 2017-04-07 Completed [facility] y of Vaccine 00:00:00 [facility] Influenza Virus 2017-04-07 Completed [facility] y of Vaccine 00:00:00 [facility] Influenza Virus 2017-04-07 Completed [facility] y of Vaccine 00:00:00 [facility] Influenza Virus 2017-04-07 Completed [facility] y of Vaccine 00:00:00 [facility] Influenza Virus 2017-04-07 Completed [facility] y of Vaccine 00:00:00 [facility] Influenza Virus 2017-04-07 Completed [facility] y of Vaccine 00:00:00 [facility] Influenza Virus 2017-04-07 Completed [facility] y of Vaccine 00:00:00 [facility] Influenza Virus 2017-04-07 Completed [facility] y of Vaccine 00:00:00 [facility] Influenza Virus 2017-04-07 Completed [facility] y of Vaccine 00:00:00 [facility] Influenza Virus 2017-04-07 Completed [facility] y of Vaccine 00:00:00 [facility] Influenza Virus 2017-04-07 Completed [facility] y of Vaccine 00:00:00 [facility] Influenza Virus 2017-04-07 Completed [facility] y of Vaccine 00:00:00 [facility] Influenza Virus 2017-04-07 Completed [facility] y of Vaccine 00:00:00 [facility] Influenza Virus 2017-04-07 Completed [facility] y of Vaccine 00:00:00 [facility] Influenza Virus 2017-04-07 Completed [facility] y of Vaccine 00:00:00 [facility] Influenza Virus 2017-04-07 Completed [facility] of Vaccine 00:00:00 [facility] Influenza Virus 2017-04-07 Completed [facility] y of Vaccine 00:00:00 [facility] Influenza Virus 2017-04-07 Completed [facility] y of Vaccine 00:00:00 [facility] Influenza Virus 2017-04-07 Completed [facility] y of Vaccine 00:00:00 [facility] Influenza Virus 2017-04-07 Completed [facility] y of Vaccine 00:00:00 [facility] Influenza Virus 2017-04-07 Completed [facility] y of Vaccine 00:00:00 [facility] Influenza Virus 2017-04-07 Completed [facility] y of Vaccine 00:00:00 [facility] Influenza Virus 2017-04-07 Completed [facility] y of Vaccine 00:00:00 [facility] Influenza Virus 2017-04-07 Completed [facility] y of Vaccine 00:00:00 [facility] Influenza Virus 2017-04-07 Completed [facility] y of Vaccine 00:00:00 [facility] Influenza Virus 2017-04-07 Completed [facility] y of Vaccine 00:00:00 [facility] Influenza Virus 2017-04-07 Completed [facility] y of Vaccine 00:00:00 [facility] Influenza Virus 2017-04-07 Completed [facility] y of Vaccine 00:00:00 [facility] Influenza Virus 2017-04-07 Completed [facility] y of Vaccine 00:00:00 [facility] Influenza Virus 2017-04-07 Completed [facility] y of Vaccine 00:00:00 [facility] Influenza Virus 2017-04-07 Completed [facility] y of Vaccine 00:00:00 [facility] Influenza Virus 2017-04-07 Completed [facility] y of Vaccine 00:00:00 [facility] Influenza Virus 2017-04-07 Completed [facility] y of Vaccine 00:00:00 [facility] Influenza Virus 2017-04-07 Completed [facility] y of Vaccine 00:00:00 [facility] Influenza Virus 2017-04-07 Completed [facility] y of Vaccine 00:00:00 [facility] Influenza Virus 2017-04-07 Completed [facility] y of Vaccine 00:00:00 [facility] Influenza Virus 2017-04-07 Completed [facility] y of Vaccine 00:00:00 [facility] Influenza Virus 2017-04-07 Completed [facility] y of Vaccine 00:00:00 [facility] Influenza Virus 2017-04-07 Completed [facility] y of Vaccine 00:00:00 [facility] Influenza Virus 2017-04-07 Completed [facility] y of Vaccine 00:00:00 [facility] Influenza Virus 2017-04-07 Completed [facility] y of Vaccine 00:00:00 [facility] Influenza Virus 2017-04-07 Completed [facility] y of Vaccine 00:00:00 [facility] Influenza Virus 2017-04-07 Completed [facility] y of Vaccine 00:00:00 [facility] Influenza Virus 2017-04-07 Completed [facility]it y of Vaccine 00:00:00 [facility] Vital Signs Vital Name Observation Time Observation Value Comments Source Systolic blood 2022-07-18 19:15:00 178 mm[Hg] Univer sity of pressure [facility] Diastolic blood 2022-07-18 19:15:00 77 mm[Hg] Unive rsity of pressure [facility] Heart rate 2022-07-18 19:14:00 96 /min [facility] Body height 2022-07-18 19:14:00 175.3 cm [facility] [place] Body weight 2022-07-18 19:14:00 81.239 kg [facility] BMI 2022-07-18 19:14:00 26.45 kg/m2 [facility] Oxygen saturation in 2022-07-18 19:14:00 98 /min [facility] of Arterial blood by [place] [employer] [facility] Systolic blood 2022-07-14 20:47:00 138 mm[Hg] Univer sity of pressure [facility] Diastolic blood 2022-07-14 20:47:00 77 mm[Hg] Unive rsity of pressure [facility] Heart rate 2022-07-14 20:47:00 76 /min [facility] Body temperature 2022-07-14 20:47:00 37.11 Krystal Univ ersity of [facility] Respiratory rate 2022-07-14 20:47:00 17 /min Univ ersity of [facility] Body weight 2022-07-14 20:47:00 78.518 kg [facility] BMI 2022-07-14 20:47:00 25.56 kg/m2 [facility] Oxygen saturation in 2022-07-14 20:47:00 97 /min [facility] Arterial blood by [place] [facility] Systolic blood 2022-07-06 22:10:00 137 mm[Hg] Univer sity of pressure [facility] Diastolic blood 2022-07-06 22:10:00 67 mm[Hg] Unive rsity of pressure [facility] Heart rate 2022-07-06 22:10:00 79 /min [facility] Body temperature 2022-07-06 22:10:00 37.56 Krystal Univ ersity of [facility] Respiratory rate 2022-07-06 22:10:00 16 /min Univ ersity of [facility] Body height 2022-07-06 22:10:00 175.3 cm [facility] Body weight 2022-07-06 22:10:00 78.109 kg [facility] BMI 2022-07-06 22:10:00 25.43 kg/m2 [facility] Oxygen saturation in 2022-07-06 22:10:00 96 /min [facility] of Arterial blood by [facility] Pulse oxim[facility] Branch Body weight 2022-06-07 19:07:00 78.019 kg [facility] BMI 2022-06-07 19:07:00 25.40 kg/m2 [facility] Systolic blood 2022-05-17 18:16:00 157 mm[Hg] Univer sity of pressure [facility] Diastolic blood 2022-05-17 18:16:00 81 mm[Hg] Unive rsity of pressure [facility] Body weight 2022-05-17 18:16:00 78.019 kg [facility] BMI 2022-05-17 18:16:00 25.40 kg/m2 [facility] Heart rate 2022-05-17 18:13:00 73 /min [facility] Oxygen saturation in 2022-05-17 18:13:00 97 /min [facility] of Arterial blood by [facility] lisa Pulse oximetry Branch Systolic blood 2022-05-16 18:23:00 179 mm[Hg] Univer sity of pressure [facility] Diastolic blood 2022-05-16 18:23:00 82 mm[Hg] Unive rsity of pressure [facility] Heart rate 2022-05-16 18:18:00 69 /min [facility] Body weight 2022-05-16 18:18:00 78.019 kg [facility] BMI 2022-05-16 18:18:00 25.40 kg/m2 [facility] Oxygen saturation in 2022-05-16 18:18:00 99 /min [facility] of Arterial blood by [facility] Pulse oxim[facility] Branch Body weight 2022-04-26 13:36:00 77.565 kg [facility] BMI 2022-04-26 13:36:00 25.25 kg/m2 [facility] Systolic blood 2022-04-22 18:49:00 167 mm[Hg] Univer sity of pressure [facility] Diastolic blood 2022-04-22 18:49:00 73 mm[Hg] Unive rsity of pressure [facility] Heart rate 2022-04-22 18:39:00 91 /min [facility] Body weight 2022-04-22 18:39:00 77.837 kg [facility] BMI 2022-04-22 18:39:00 25.34 kg/m2 [facility] Oxygen saturation in 2022-04-22 18:39:00 98 /min [facility] of Arterial blood by [facility] Pulse oxim[facility] Branch Systolic blood 2022-03-25 15:40:00 164 mm[Hg] Univer sity of pressure [facility] Diastolic blood 2022-03-25 15:40:00 76 mm[Hg] Unive rsity of pressure [facility] Heart rate 2022-03-25 15:38:00 85 /min [facility] Body temperature 2022-03-25 15:38:00 36.61 Krystal Univ ers[facility] Respiratory rate 2022-03-25 15:38:00 16 /min Univ ersity of [facility] Body height 2022-03-25 15:38:00 175.3 cm [facility] Body weight 2022-03-25 15:38:00 79.198 kg [facility] BMI 2022-03-25 15:38:00 25.78 kg/m2 [facility] Oxygen saturation in 2022-03-25 15:38:00 97 /min [facility] of Arterial blood by [facility] Pulse oximetry Branch Systolic blood 2022-03-25 15:40:00 164 mm[Hg] Univer sity of pressure [facility] Diastolic blood 2022-03-25 15:40:00 76 mm[Hg] [facility]ive [facility] Heart rate 2022-03-25 15:38:00 85 /min [facility] Body temperature 2022-03-25 15:38:00 36.61 Krystal [facility] Res[facility] rate 2022-03-25 15:38:00 16 /min [facility] Body height 2022-03-25 15:38:00 175.3 cm [facility] Body weight 2022-03-25 15:38:00 79.198 kg [facility] BMI 2022-03-25 15:38:00 25.78 kg/m2 [facility] Oxygen saturation in 2022-03-25 15:38:00 97 /min [facility] Arterial blood by [facility] Pulse oximetry Branch Procedures Procedure Date / Time Performing Clinician Source Performed SARS-COV-2 COVID-19 2022-07-18 19:20:15 Ray Suh [facility] VACCINE 12 YRS+, BIVALENT Medica l Branch 0.5ML, IM (MODERNA BOOSTER) US RETROPERITONEAL 2022-07-12 21:38:52 Beti Ny [facility] COMPLETE [facility] POCT URINALYSIS AUTO 2022-07-06 00:00:00 Beti Ny [facility] OU CORNEAL PACHYMETRY, 2022-06-07 00:00:00 Mariola Berrios [facility] BOTH EYES Medical [place] ASSIGNMENT OF BENEFITS 2022-05-13 14:32:05 Doctor Unassigned, Un [place] [facility] OPHTHALMOLOGY DIAGNOSTIC 2022-04-26 05:01:00 Doctor Unassigned, [facility] TEST [facility] OU CORNEAL PACHYMETRY, 2022-04-26 00:00:00 [facility] EYES [facility] OU ENDOTHELIAL CELL COUNT, 2022-04-26 00:00:00 [facility] OU SPECTRALIS OCT MACULA, 2022-04-26 00:00:[address] [facility] BOTH EYES Medical Branch DIABETES TESTING REPORTS 2022-04-22 05:01:00 Doctor Josie, [facility] [place] [facility] NM MYOCARDIUM PERFUSION 2022-04-21 16:28:00 Chintan Richards [facility] STRESS AND REST [facility] [place] NM MYOCARDIUM PERFUSION 2022-04-21 16:28:00 Chintan Richards [facility] STRESS AND REST [facility] [place] NM MYOCARDIUM PERFUSION 2022-04-21 16:28:00 Chintan Richards [facility] STRESS AND REST [facility] [place] NM MYOCARDIUM PERFUSION 2022-04-21 16:28:00 Chintan Richards [facility] STRESS AND REST [facility] ASSIGNMENT OF BENEFITS 2022-04-21 13:18:59 Doctor Josie [facility] DME/SUPPLY JUSTIFICATION 2022-04-15 05:01:00 Doctor Josie, [facility] [place] [facility] HB ECG ROUTINE & RHYTHM 2022-03-25 15:47:54 Chintan Richards [facility] DIABETES TESTING REPORTS 2022-03-23 05:01:00 Doctor Josie, [facility] Name [facility] Encounters Start End Encounter Admission Attending Care Care Encounter Source Date/Time Date/Time Type Type Clinicians Facility Department ID 2022-03-16 Outpatient BRADY SUÁREZ [facility] OPH [id number] Univers 08:03[facility] 2021-07-30 Outpatient Dominick BERRIOS [facility] OPH [id number] Univers 09:33:[address] [facility] 2021-06-01 Emergency X [facility] OPH [id number] Univers 05:57:[address] [facility] 2021-06-01 Outpatient Dominick ANTONIO [facility] OPH [id number] Univers 02:42:[address] [facility] 2021-06-01 Outpatient R PACO [facility] OPH [id number] Univers 01:39:[address] [facility] 2021-05-29 Emergency [facility] [id number] Univers 00:20:[address] [facility] 2022-11-17 2022-11-17 Outpatient R THOMAS ALEJANDRA [facility] [id number] Univers 13:30:00 13:30:00 ity [facility] 2022-11-15 2022-11-15 Outpatient R KASSI [facility] [id number] Univers 13:00:00 13:00:[address] [facility] 2022-10-18 2022-10-18 Outpatient R YASH [facility] [id number] Univers 10:00:00 10:00:[address] [facility] 2022-07-22 2022-07-22 Outpatient R MAYRA [facility] [id number] Univers 11:30:00 11:30:00 ANNE-MARIE [facility] 2022-07-22 2022-07-22 Refill Thomas Alejandra [facility] 1.2.840.114 [id number] Univers 00:00:00 00:00:00 [facility] 350.1.13.10 i ty of [place] [id number] [facility] 059 [facility] 2022-07-18 2022-07-18 Office [facility] 1.2.840.114 [id number] Univers 13:15:00 13:30:00 Visit [facility] 350.1.13.10 it y of [place] 4.2.7.2.686 [place] as DEONDRE?BLEA [id number] Nm dical KNEY 044 [facility] OFFICE [facility] 2022-07-18 2022-07-18 Outpatient R VIKASH [facility] [id number] Univers 13:15:00 13:15:00 RAY [facility] 2022-07-14 2022-07-14 Outpatient R JENNALKATHOMAS [facility] [id number] Univers 14:30:00 15:19:45 ity [facility] 2022-07-14 2022-07-14 Office Thomas Alejandra [facility] 1.2.840.114 [id number] Univers 14:30:00 15:19:45 Visit N [place] 350.1.13.10 i ty of [place] [id number] Nm dical NAL 059 [facility] 2022-07-12 2022-07-12 [facility] [id number] Univers 13:57:02 23:59:00 BETI guidry o brian [facility] 2022-07-12 2022-07-12 Hospital [facility] 1.2.840.114 [id number] Univers 13:57:02 23:59:00 Encounter Beti SHEPHERD 350.1.13.10 ity [place].2.7.2.[place] C[place] [id number] [facility] 806 [place] 2022-07-06 2022-07-06 Cloth Roll Winder Deja Toro Lab Main [facility] 1.2.8 40.114 [id number] Univers 17:00:00 17:15:00 Visit Beti Ny 350.1.13. 10 ity [facility] 4.2.7.2.[place] [id number] Nm dical NAL 353 [facility] 2022-07-06 2022-07-06 Outpatient R ANANT [facility] [id number] Univers 16:00:00 16:37:03 BETI torres [facility] 2022-07-06 2022-07-06 Office [facility] 1.2.840.114 [id number] Univers 16:00:00 16:37:03 Visit Beti JERADEVITA 350.1.13.10 ity of [facility] 4.2.7.2.[place] [id number] Nm dical NAL 204 [facility] 2022-07-06 2022-07-06 Refnena [facility] 1.2.840.114 [id number] Univers 00:00:00 00:00:00 [facility] 350.1.13.10 it y of [place] 4.2.7.2.686 [place] DEONDRE?BLEA [id number] Nm dical KNEY 044 [facility] OFFICE [facility] 2022-06-30 2022-06-30 Nurse Nurse, Ang Endo/Diab [facility] 1.2.8 40.114 [id number] Univers 13:00:00 14:57:04 Visit Venu [facility] 350.1.13.10 ity of [place] 4.2.7.2.686 [place] as DEONDRE?BLEA [id number] Nm adán JOYCE 220 [facility] OFFICE [facility] 2022-06-30 2022-06-30 Outpatient R VENU [facility] [id number] Univers 13:00:00 13:00:00 DARRYN [facility] 2022-06-27 2022-06-27 Outpatient R MIO AKBAR [facility] [id number] Univers 16:30:00 16:30:00 MIO AKBAR [facility] 2022-06-27 2022-06-27 [facility] 1.2.840.114 [id number] Univers 00:00:00 00:00:00 [place] [facility] 350.1.13.10 it y of [place] 4.2.7.2.686 [place] as DEONDRE?BLEA [id number] Nm adán JOYCE 044 [facility] OFFICE [facility] 2022-06-22 2022-06-22 Scot [facility] 1.2.701.351 [id number] Univers 00:00:00 00:00:00 [facility] 350.1.13.10 it y of [place] 4.2.7.2.686 [place] as DEONDRE?BLEA [id number] Nm adán JOYCE 044 [facility] 2022-06-21 2022-06-21 [facility] 1.2.840.114 [id number] Univers 00:00:00 00:00:00 Ray HEALTH 350.1.13.10 it y of [place] 4.2.7.2.686 [place] as DEONDRE?BLEA [phone] Nm dicsallie JOYCE 044 [facility] 2022-06-16 2022-06-16 [facility] 1.2.840.114 [id number] Univers 00:00:00 00:00:00 [place] [facility] 350.1.13.10 it y of [place] 4.2.7.2.686 [place] DEONDRE?BLEA [id number] Nm adán JOYCE 198 [facility] OFFICE [facility] 2022-06-07 2022-06-07 Outpatient R YASH [facility] [id number] Univers 13:00:00 13:36:16 HUM ity of [facility] 2022-06-07 2022-06-07 Office [facility] 1.2.840.114 [id number] Univers 13:00:00 13:36:16 Visit [facility] 350.1.13.10 it y of [place].2.[place] C[place] [id number] [address] 2022-06-06 2022-06-06 Refnena Su[facility] 1.2.840.114 [id number] Univers 00:00:00 00:00:00 Ray HEALTH 350.1.13.10 it y of [place] 4.2.7.2.686 [place] as DEONDRE?BLEA [id number] [address] OFFICE [facility] 2022-06-03 2022-06-03 Refnena [facility] 1.2.840.114 [id number] Univers 00:00:00 00:00:00 Ray HEALTH 350.1.13.10 it y of [place] 4.2.7.2.686 [place] as DEONDRE?BLEA [id number] [facility] MONROY[address] OFFICE [facility] 2022-05-26 2022-05-26 Shayy [facility] 1.2.840.114 [id number] Univers 00:00:00 00:00:00 Ray HEALTH 350.1.13.10 it y of [place] 4.2.7.2.686 [place] as DEONDRE?BLEA [id number] [address] OFFICE [facility] 2022-05-18 2022-05-18 Shayy [facility] 1.2.840.114 [id number] Univers 00:00:00 00:00:00 Ray HEALTH 350.1.13.10 it y of [place] 4.2.7.2.686 [place] as DEONDRE?BLEA [id number] [address] OFFICE [facility] 2022-05-17 2022-05-17 Outpatient R [facility] [id number] Univers 13:00:00 13:58:23 ALINA guidry [facility] 2022-05-17 2022-05-17 Office K[facility] 1.2.840.114 [id number] Univers 13:00:00 13:58:23 Visit Alina Hernandez JOAO 350.1.13.10 i ty of [place] 4.2.[place].2.[place] [id number] Nm dical NAL 059 [facility] 2022-05-16 2022-05-16 Outpatient R [facility] [id number] Univers 13:00:00 13:30:41 RAY guidry [facility] 2022-05-16 2022-05-16 Office [facility] 1.2.840.114 [id number] Univers 13:00:00 13:30:41 Visit [facility] 350.1.13.10 it y of [place] 4.2.7.2.686 [place] as DEONDRE?BLEA [id number] Nm dical KNEY 044 [facility] OFFICE [facility] 2022-05-16 2022-05-16 Outpatient R VIKASH [facility] [id number] Univers 13:00:00 13:00:00 RAY guidry [facility] 2022-05-13 2022-05-13 Cloth Roll Winder Muna, Adc Lab Main [facility] 1.2.8 40.114 [id number] Univers 10:00:00 10:15:00 Visit Chintan Richards 350.1.13. 10 ity [facility] 4.2.7.2.[place] [id number] Nm dical NAL 353 [facility] 2022-05-13 2022-05-13 Outpatient R [facility] [id number] Univers 10:00:00 10:00:00 CHINTAN guidry [facility] 2022-05-13 2022-05-13 Orders Doctor PEACE 1.2.840.114 [id number] Univers 00:00:00 00:00:00 Only Unassigned, DAY 350.1.13.10 ity of [place] [facility] 4.2.7.2.686 [place] as [id number] [facility] [address] [place] 2022-05-12 2022-05-12 Shayy [facility] 1.2.840.114 [id number] Univers 00:00:00 00:00:00 Ray HEALTH 350.1.13.10 it [facility] 4.2.7.2.686 [place] as DEONDRE?BLEA [id number] [address] MEDICAL OFFICE [facility] 2022-05-06 2022-05-06 Shayy Su[facility] 1.2.840.114 [id number] Univers 00:00:00 00:00:00 Ray HEALTH 350.1.13.10 it y of [place] 4.2.7.2.686 [place] as DEONDRE?BLEA [id number] [address] OFFICE [facility] 2022-05-04 2022-05-04 Outpatient Dominick RICHARDS [facility] [id number] Univers 08:27 08:00:00 SENDIL ity [facility] 2022-04-27 2022-04-27 Outpatient R MAURICE [facility] [id number] Univers 14:00:00 14:00:00 SENDIL ity [facility] 2022-04-27 2022-04-27 Outpatient Dominick RICHARDS [facility] [id number] Univers 14:00:00 14:00:00 SENDIL ity [facility] 2022-04-26 2022-04-26 Outpatient BRADY SUÁREZ [facility] [id number] Univers 08:15:00 10:00:45 ity [facility] 2022-04-26 2022-04-26 Office Brady CardozoIT 1.2.840.114 [id number] Univers 08:15:00 10:00:45 Visit R Y 350.1.13.10 it y of [facility] 4.2.7.2.686 [place] as BANK [id number] [facility] BLDG. [address] [place] 2022-04-26 2022-04-26 Outpatient BRADY SUÁREZ [facility] [id number] Univers 08:15:00 08:15:00 ity [facility] 2022-04-26 2022-04-26 Outpatient R BRADY CARDOZO [facility] [id number] Univers 08:15:00 08:15:00 ity of [facility] 2022-04-26 2022-04-26 Orders Doctor NATA 1.2.840.114 [id number] Univers 00:00:00 00:00:00 Only Unassigned, DAY 350.1.13.10 ity of [place] [facility] 4.2.7.2.686 [place] as [id number] [address] 2022-04-25 2022-04-25 Outpatient [facility] [id number] Univers 08:00:00 08:17:00 SENDIL itarturo [facility] 2022-04-25 2022-04-25 Refnena Su[facility]NEW [facility] 1.2.840.114 [id number] Univers 00:00:00 00:00:00 Ray HEALTH 350.1.13.10 it y of [place] 4.2.7.2.686 [place] as DEONDRE?BLEA [id number] [facility]m [facility] [address] [place] MEDICAL OFFICE [facility] 2022-04-22 2022-04-22 Outpatient R [facility] [id number] Univers 13:30:00 14:32:42 ANNE-MARIE itarturo [facility] 2022-04-22 2022-04-22 Office May[facility]NEW [facility] 1.2.840.114 [id number] Univers 13:30:00 14:32:42 Visit [facility] 350.1.13.10 it y of [place] 4.2.7.2.686 [place]an as DEONDRE?BLEA [id number] [facility]m [facility] [address] [place] MEDICAL OFFICE [facility] 2022-04-22 2022-04-22 Orders Doctor NATA 1.2.840.114 [id number] Univers 00:00:00 00:00:00 Only Unassigned, DAY 350.1.13.10 ity of [place] [facility] 4.2.7.2.686 [place] as [id number] [address] 2022-04-21 2022-04-21 [facility] 1.2.840.114 [id number] Univers 08:26:23 23:59:00 Encounter Chintan MARSTON 350.1.13.10 ity of [facility] 4.2.7.2.686 [facility] [id number] [facility] [address] [place] 2022-04-21 2022-04-21 [facility] 1.2.840.114 [id number] Univers 08:25:59 08:25:59 Encounter Sendil Adalid JOAO 350.1.13.10 ity [facility] 4.2.7.2.686 [facility] [id number] [facility] [address] [place] 2022-04-21 2022-04-21 [facility] 1.2.840.114 [id number] Univers 08:25:35 08:25:35 Encounter Chintan VillarRajinder JOAO 350.1.13.10 ity of [place] 4.2.7.2.686 [facility] [id number] [address] 2022-04-21 2022-04-21 Outpatient R [facility] [id number] Univers 08:25:12 08:25:12 SENDIL ity of [facility] 2022-04-21 2022-04-21 [facility] 1.2.840.114 [id number] Univers 08:25:12 08:25:12 Encounter Chintan VillarRajinder JOAO 350.1.13.10 ity of [facility] 4.2.7.2.686 [facility] [id number] [facility] [address] [place] 2022-04-21 2022-04-21 Orders Doctor NATA 1.2.840.114 [id number] Univers 00:00:00 00:00:00 Only Unassigned, DAY 350.1.13.10 ity of [place] [facility] 4.2.7.2.686 [place] as [id number] [place] [address] [place] 2022-04-20 2022-04-20 Shayy [facility] 1.2.840.114 [id number] Univers 00:00:00 00:00:00 [facility] 350.1.13.10 it y of [place] 4.2.7.2.686 [place] as DEONDRE?BLEA [id number] Nm adán JOYCE [address] [place] MEDICAL OFFICE [facility] 2022-04-15 2022-04-15 Telephone Venu [facility] 1.2.894.151 [id number] Univers 00:00:00 00:00:00 [place] HEALTH 350.1.13.10 it y of [place] 4.2.7.2.686 [place]an as DEONDRE?BLEA [id number] Nm adán JOYCE 220 [facility] OFFICE [facility] 2022-04-15 2022-04-15 Orders Doctor NATA 1.2.840.114 [id number] Univers 00:00:00 00:00:00 Only Unassigned, DAY 350.1.13.10 ity of [place] [facility] 4.2.7.2.686 [place] as [id number] [facility] [address] [place] 2022-04-12 2022-04-12 Outpatient R [facility] [id number] Univers 00:00:00 00:00:[address] [facility] 2022-04-12 2022-04-12 Outpatient R MAURICE [facility] [id number] Univers 00:00:00 00:00:00 SENDIL [facility] 2022-04-11 2022-04-11 Shayy [facility] 1.2.840.114 [id number] Univers 00:00:00 00:00:00 Ray HEALTH 350.1.13.10 it [facility] 4.2.7.2.686 [place] as DEONDRE?BLEA [id number] [facility] 044 [facility] 2022-04-08 2022-04-08 Telephone Brady Cardozo 1.2.840.11 [id number] Univers 00:00:00 00:00:00 R Y 350.1.13.10 it y of [place] 4.2.7.2.686 [place]an as BANK [id number] [facility] BLDG. [address] [place] 2022-04-05 2022-04-05 Refnena SuhNEW [facility] 1.2.840.114 [id number] Univers 00:00:00 00:00:00 Ray HEALTH 350.1.13.10 it y of [place] 4.2.7.2.686 [place]an as DEONDRE?BLEA [id number] Nm adán JOYCE [address] [place] MEDICAL OFFICE BUILDING 2022-04-01 2022-04-01 Telephone Venu WIOSMAR 1.2.135.567 [id number] Univers 00:00:00 00:00:00 [place] HEALTH 350.1.13.10 it y of [place] 4.2.7.2.686 [place] as DEONDRE?BLEA [id number] Nm adán MONROY [address] [place] MEDICAL OFFICE BUILDING 2022-03-31 2022-03-31 Outpatient R BRADY CARDOZO [facility] [id number] Univers 09:00:00 10:37:09 ity of [facility] 2022-03-31 2022-03-31 Office Brady Cardozo [facility] 1.2.840.114 [id number] Univers 09:00:00 10:37:09 Visit R Y 350.1.13.10 it y of [facility] 4.2.7.2.686 Hernan as BANK [id number] [facility]. [address] [place] 2022-03-31 2022-03-31 Outpatient R BRADY CARDOZO [facility] [id number] Univers 09:00:00 09:00:00 ity of [facility] 2022-03-31 2022-03-31 Outpatient R BRADY CARDOZO [facility] [id number] Univers 09:00:00 09:00:00 ity of [facility] 2022-03-30 2022-03-30 Outpatient R BRADY CARDOZO [facility] OPH 001 [id number] Univers 10:34:00 14:16:00 ity of [facility] 2022-03-30 2022-03-30 [facility] Brady Cardozo [facility] 1.2.840.114 [id number] Univers 10:34:00 14:16:00 Encounter R HEALTH 350.1.13.10 ity of [facility] 4.2.7.2.686 [place] [facility] [phone] [address] ([facility]) 2022-03-29 2022-03-29 Outpatient R VENU [facility] [id number] Univers 16:00:00 16:00:00 WENTONG ity [facility] 2022-03-29 2022-03-29 Orders Doctor NATA 1.2.840.114 [id number] Univers 00:00:00 00:00:00 Only Unassigned, DAY 350.1.13.10 ity of [facility] 4.2.7.2.686 [place] as [id number] [address] 2022-03-25 2022-03-25 Outpatient R MAURICE [facility] [id number] Univers 10:30:00 11:06:13 SENDIL ity [facility] 2022-03-25 2022-03-25 Office [facility] 1.2.840.114 [id number] Univers 10:30:00 11:06:13 Visit Chintan SHEPHERD 350.1.13.10 ity of [place] 4.2.7.2.686 [place] PROFESS[place] [id number] [address] 2022-03-25 2022-03-25 Outpatient R MAURICE [facility] [id number] Univers 10:30:00 11:06:13 SENDIL ity [facility] 2022-03-25 2022-03-25 Office [facility] 1.2.840.114 [id number] Univers 10:30:00 11:06:13 Visit Chintan SHEPHERD 350.1.13.10 ity [facility] 4.2.7.2.686 [place] [id number] [address] 2022-03-25 2022-03-25 Outpatient R MAURICE [facility] [id number] Univers 10:30:00 11:06:13 SENDIL ity [facility] 2022-03-23 2022-03-23 Out[facility] [id number] Univers 09:00:00 11:04:43 [facility] ity [facility] 2022-03-23 2022-03-23 Office [facility] 1.2.840.114 [id number] Univers 09:00:00 11:04:43 Visit [facility] 350.1.13.10 it y of [place] 4.2.7.2.686 [place] as DEONDRE?BLEA [id number] Nm adán JOYCE [address] [place] MEDICAL OFFICE BUILDING 2022-03-23 2022-03-23 Outpatient R VENU [facility] [id number] Univers 09:00:00 11:04:43 WENTKRISTY guidry [facility] 2022-03-23 2022-03-23 Refill [facility]NEW [facility] 1.2.840.114 [id number] Univers 00:00:00 00:00:00 [facility] 350.1.13.10 it y of [facility] 4.2.7.2.686 [place] as DEONDRE?BLEA [id number] [facility] [address] [place] MEDICAL OFFICE [facility] 2022-03-23 2022-03-23 Orders Doctor NATA 1.2.840.114 [id number] Univers 00:00:00 00:00:00 Only Unassigned, DAY 350.1.13.10 ity of [place] [facility] 4.2.7.2.686 [place] as [id number] [address] 2022-03-17 2022-03-17 Refill Vik[facility]NEW [facility] 1.2.840.114 [id number] Univers 00:00:00 00:00:00 Ray HEALTH 350.1.13.10 it y of [place] 4.2.7.2.686 [place] as DEONDRE?BLEA [id number] [address] MEDICAL OFFICE [facility] 2022-03-14 2022-03-14 Office [facility] 1.2.840.114 [id number] Univers 14:00:00 14:50:05 Visit [facility] [id number] it y of [place] [id number] Hernan as DEONDRE?BLEA [phone] [address] MEDICAL OFFICE [facility] 2022-03-14 2022-03-14 Outpatient R [facility]ASH [facility] [id number] Univers 14:00:00 14:50:05 RAY guidry [facility] 2022-03-14 2022-03-14 Outpatient R VIKASH [facility] [id number] Univers 14:00:00 14:00:00 RAY guidry [facility] 2022-03-14 2022-03-14 [facility] [id number] Univers 12:15:00 12:15:00 RAY arturo [facility] 2022-03-10 2022-03-10 [facility] [id number] Univers 00:00:00 00:00:00 Ray HEALTH [id number] it y of [place] [id number] Hernan as DEONDRE?BLEA [phone] Nm adán JOYCE [address] [place] [address] OFFICE [facility] 2022-03-02 2022-03-02 [facility] [id number] Univers 14:10:00 23:59:00 HERMILA ity [facility] 2022-03-02 2022-03-02 [facility] [id number] Univers 14:15:00 14:55:58 MARIA LUISA ity [facility] 2022-03-02 2022-03-02 [facility] [id number] Univers 14:15:00 14:55:58 MARIA LUISA ity [facility] 2022-03-02 2022-03-02 [facility] [id number] Univers 14:15:00 14:30:00 Visit [facility] [id number] it y of [place] [id number] Hernan as DEONDRE?BLEA [phone] Nm adán JOYCE [address] [facility] OFFICE [facility] 2022-02-24 2022-02-24 Outpatient Dominick [facility] [id number] Univers 15:00:00 15:00:00 MARIA LUISA ity [facility] 2022-02-24 2022-02-24 [facility] [id number] Univers 15:00:00 15:00:00 MARIA LUISA ity [facility] 2022-02-24 2022-02-24 Emergency X Jian [facility] ERT [id number] Univers 11:54:00 14:17:00 ity [facility] 2022-02-24 2022-02-24 Emergency Jian [facility] [id number] Univers 11:54:00 14:17:00 Jennifer [place] [id number] i ty of [place] 4.2.7.2.686 [place] [facility] [phone] [facility] [address] 2022-02-24 2022-02-24 [facility]y [facility] 1.2.840.114 [id number] Univers 00:00:00 00:00:00 Ray HEALTH 350.1.13.10 it y of [place] 4.2.7.2.686 Hernan as DEONDRE?BLEA [phone] [address] MEDICAL OFFICE [facility] 2022-02-24 2022-02-24 Orders Doctor NATA 1.2.840.114 [id number] Univers 00:00:00 00:00:00 Only Unassigned, DAY 350.1.13.10 ity of [place] [facility] 4.2.7.2.686 Hernan as [phone] [facility] [address] 2022-02-23 2022-02-23 Outpatient Dominick LEA [facility] [id number] Univers 14:00:00 14:00:00 [facility] 2022-02-23 2022-02-23 Outpatient Dominick LEA [facility] [id number] Univers 14:00:00 14:00:00 [facility] 2022-02-23 2022-02-23 [facility]ayy [facility] 1.2.840.114 [id number] Univers 00:00:00 00:00:00 [facility] 350.1.13.10 it y of [place] 4.2.7.2.686 Hernan as DEONDRE?BLEA [phone] [address] OFFICE [facility] 2022-02-14 2022-02-14 [facility]ayy [facility] 1.2.840.114 [id number] Univers 00:00:00 00:00:00 Ray HEALTH 350.1.13.10 it y of [place] 4.2.7.2.686 Hernan as DEONDRE?BLEA [phone] [address] MEDICAL OFFICE [facility] 2022-01-25 2022-01-25 Outpatient R SIMONA [facility] [id number] Univers 15:05:00 23:59:00 MARIA LUISA itarturo [facility] 2022-01-25 2022-01-25 Outpatient R SIMONA [facility] [id number] Univers 15:05:00 23:59:00 MARIA LUISA itarturo [facility] 2022-01-25 2022-01-25 Outpatient R SIMONA [facility] [id number] Univers 14:30:00 15:27:06 MARIA LUISA chao [facility] 2022-01-25 2022-01-25 Out[facility] [id number] Univers 14:30:00 15:27:06 MARIA LUISALB guidry [facility] 2022-01-25 2022-01-25 Office [facility] 1.2.840.114 [id number] Univers 14:30:00 15:27:06 Visit [facility] 350.1.13.10 it y of [place] 4.2.7.2.686 Hernan as DEONDRE?BLEA [phone] [facility] [address] MEDICAL OFFICE [facility] 2022-01-24 2022-01-24 [facility] 1.2.840.114 [id number] Univers 00:00:00 00:00:00 Verona HEALTH 350.1.13.10 it y of [place] 4.2.7.2.686 Hernan as DEONDRE?BLEA [id number] [address] OFFICE [facility] 2022-01-23 2022-01-23 [facility] 1.2.840.114 [id number] Univers 00:00:00 00:00:00 Ray HEALTH 350.1.13.10 it y of [place] 4.2.7.2.686 Hernan as DEONDRE?BLEA [phone] [address] OFFICE [facility] 2022-01-20 2022-01-20 Outpatient Dominick NASH [facility] [id number] Univers 11:00:00 11:44:03 ANTHONY guidry [facility] 2022-01-20 2022-01-20 Office [facility] 1.2.840.114 [id number] Univers 11:00:00 11:44:03 Visit Anthony HEALTH 350.1.13.10 it y of [place] 4.2.7.2.686 Hernan as DEONDRE?BLEA [phone] Nm adán JOYCE [address] MEDICAL OFFICE [facility] 2022-01-20 2022-01-20 Outpatient R CHARITY [facility] [id number] Univers 11:00:00 11:00:00 ANTHONY guidry [facility] 2022-01-20 2022-01-20 Telephone Simona [facility] 1.2.865.097 [id number] Univers 00:00:00 00:00:00 Maria Luisa HEALTH 350.1.13.10 it y of [place] 4.2.7.2.686 Hernan as DEONDRE?BLEA [phone] Nm adán JOYCE [address] MEDICAL OFFICE [facility] 2022-01-19 2022-01-19 Outpatient R VENU [facility] [id number] Univers 12:00:00 13:00:20 DARRYN guidry [facility] 2022-01-19 2022-01-19 Office [facility] 1.2.840.114 [id number] Univers 12:00:00 13:00:20 [facility] 350.1.13.10 it y of [place] 4.2.7.2.686 Hernan as DEONDRE?BLEA [phone] Nm adán JOYCE 220 [facility] OFFICE [facility] 2022-01-19 2022-01-19 Outpatient R VENU [facility] [id number] Univers 12:00:00 12:00:00 DARRYN guidry [facility] 2022-01-19 2022-01-19 Outpatient [facility] [id number] Univers 12:00:00 12:00:00 DARRYN [facility] 2022-01-16 2022-01-16 Refnena Suh [facility] 1.2.840.114 [id number] Univers 00:00:00 00:00:00 Ray HEALTH 350.1.13.10 it y of [place] 4.2.7.2.686 Hernan as DEONDRE?BLEA [phone] Nm adán JOYCE [address] [place] [address] OFFICE [facility] 2022-01-13 2022-01-13 Emergency [facility] 1.2.071.495 [id number] Univers 20:22:00 23:24:00 Rebecca SHEPHERD 350.1.13.10 ity of [place] 4.2.7.2.686 [place] [phone] [address] 2022-01-13 2022-01-13 Outpatient R VI[facility]ASHNEW [facility] ERT [id number] Univers 13:15:00 13:36:55 RAY guidry [facility] 2022-01-13 2022-01-13 Office [facility] 1.2.840.114 [id number] Univers 13:15:00 13:36:55 Visit [facility] 350.1.13.10 it y [facility] 4.2.7.2.686 Hernan as DEONDRE?BLEA [phone] [address] 2022-01-13 2022-01-13 Outpatient Dominick [facility] [id number] Univers 13:15:00 13:36:55 RAY ity [facility] 2022-01-13 2022-01-13 Outpatient R [facility] [id number] Univers 13:15:00 13:15:00 [facility] 2022-01-06 2022-01-06 Outpatient Dominick BRUNSONSUHMER[facility] [id number] Univers 12:15:00 12:15:00 [facility] 2022-01-04 2022-01-04 Refill [facility] 1.2.840.114 [id number] Univers 00:00:00 00:00:00 [facility] 350.1.13.10 it y [facility] 4.2.7.2.686 Hernan as DEONDRE?BLEA [phone] [address] 2021-12-30 2021-12-30 Telephone [facility] 1.2.840.114 [id number] Univers 00:00:00 00:00:00 Betiadali SHEPHERD 350.1.13.10 ity of [facility] 4.2.7.2.686 [place] [phone] Nm dical NAL 204 [facility] 2021-12-30 2021-12-30 Telephone Mayra [facility] 1.2.759.636 [id number] Univers 00:00:00 00:00:00 [facility] 350.1.13.10 it y of [facility] 4.2.7.2.686 Hernan as DEONDRE?BLEA [phone] Nm dical KNEY 220 [facility] OFFICE BUILDING 2021-12-29 2021-12-29 Telephone Brady Cardozo [facility] 1.2.840.11 [id number] Univers 00:00:00 00:00:00 R Y 350.1.13.10 it y of [facility] 4.2.7.2.686 Hernan as BANK [phone] [facility] BLDG. [address] 2021-12-28 2021-12-28 Outpatient R [facility] [id number] Univers 11:29:44 23:59:00 BETI zaidi [facility] 2021-12-28 2021-12-28 [facility] [id number] Univers 11:29:44 23:59:00 BETI zaidi [facility] 2021-12-28 2021-12-28 [facility] 1.2.840.114 [id number] Univers 11:15:00 23:59:00 Encounter Beti SHEPHERD 350.1.13.10 ity of [place] 4.2.7.2.686 [place] [phone] [facility] [address] 2021-12-22 2021-12-22 Cloth Roll Winder 2, Adc Lab [facility] 1.2.840.114 [id number] Univers 14:30:00 14:45:00 Visit Beti Ny 350.1.13. 10 ity of [facility] 4.2.7.2.686 [place] PROF[place] [phone] Nm dical NAL 353 [facility] 2021-12-22 2021-12-22 Outpatient R [facility] [id number] Univers 13:30:00 14:11:43 BETI torres [facility] 2021-12-22 2021-12-22 Office [facility] 1.2.840.114 [id number] Univers 13:30:00 14:11:43 Visit Beti SHEPHERD 350.1.13.10 ity of [facility] 4.2.7.2.686 [place] ROGELIO [phone] Nm dical [facility] 204 [facility] 2021-12-22 2021-12-22 Outpatient R [facility] [id number] Univers 13:30:00 14:11:43 BETI zaidi [facility] 2021-12-21 2021-12-21 Refnena Su[facility]NEW [facility] 1.2.840.114 [id number] Univers 00:00:00 00:00:00 [facility] 350.1.13.10 it y of [place] 4.2.7.2.686 Hernan as DEONDRE?BLEA [phone] [facility] [address] 2021-12-20 2021-12-20 Out[facility] [id number] Univers 10:30:00 10:30:00 BETI zaidi [facility] 2021-12-20 2021-12-20 Outpatient R [facility] [id number] Univers 10:30:00 10:30:00 BETIADALI zaidi [facility] 2021-12-20 2021-12-20 Outpatient Dominick [facility] [id number] Univers 10:30:00 10:30:00 BETI chao zaidi [facility] 2021-12-19 2021-12-19 Shayy [facility] 1.2.840.114 [id number] Univers 00:00:00 00:00:00 [facility] 350.1.13.10 it y of [place] 4.2.7.2.686 Hernan as DEONDRE?BLEA [phone] Nm adán [address] 2021-12-15 2021-12-15 Orders Doctor PEACE 1.2.840.114 [id number] Univers 00:00:00 00:00:00 Only Unassigned, DAY 350.1.13.10 ity of [place] [facility] 4.2.7.2.686 Hernan as [phone] [address] 2021-12-11 2021-12-11 Refill Vikash [facility] 1.2.840.114 [id number] Univers 00:00:00 00:00:00 Ray HEALTH 350.1.13.10 it y [facility] 4.2.7.2.686 Hernan as DEONDRE?BLEA [phone] [address] MEDICAL OFFICE [facility] 2021-12-09 2021-12-09 Office [facility] 1.2.840.114 [id number] Univers 12:00:00 12:15:00 Visit Ray HEALTH 350.1.13.10 it y of [place] 4.2.7.2.686 Hernan as DEONDRE?BLEA [phone] [address] MEDICAL OFFICE [facility] 2021-12-09 2021-12-09 Outpatient Dominick [facility] [id number] Univers 12:00:00 12:00:00 [facility] 2021-12-09 2021-12-09 Outpatient Dominick [facility] [id number] Univers 12:00:00 12:00:00 [facility] 2021-12-09 2021-12-09 Outpatient Dominick SUH [facility] [id number] Univers 12:00:00 12:00:00 [facility] 2021-12-07 2021-12-07 Orders Doctor PEACE 1.2.840.114 [id number] Univers 00:00:00 00:00:00 Only Unassigned, DAY 350.1.13.10 ity of [place] [facility] 4.2.7.2.686 Hernan as [id number] [address] 2021-12-06 2021-12-06 Scot [facility]NEW [facility] 1.2.162.246 [id number] Univers 00:00:00 00:00:00 Anne-Marie HEALTH 350.1.13.10 it y [facility] 4.2.7.2.686 Hernan as DEONDRE?BLEA [phone] Nm adán JOYCE [address] MEDICAL OFFICE BUILDING 2021-11-29 2021-11-29 Telephone Vikash [facility] 1.2.361.485 [id number] Univers 00:00:00 00:00:00 Ray HEALTH 350.1.13.10 it y of [place] 4.2.7.2.686 Hernan as DEONDRE?BLEA [phone] Nm adán [facility] [address] MEDICAL OFFICE [facility] 2021-11-22 2021-11-22 Refill VikashNEW [facility]EXICO [facility] 1.2.840.114 [id number] Univers 00:00:00 00:00:00 Ray HEALTH 350.1.13.10 it y of [place] 4.2.7.2.686 Hernan as DEONDRE?BLEA [phone] [facility] 044 [facility] OFFICE [facility] 2021-11-17 2021-11-17 Orders Doctor NATA 1.2.840.114 [id number] Univers 00:00:00 00:00:00 Only Unassigned, DAY 350.1.13.10 [facility] [facility] 4.2.7.2.686 Hernan as [phone] [facility] [address] 2021-11-16 2021-11-16 Outpatient R BRADY CARDOZO [facility] [id number] Univers 15:15:00 17:31:02 ity of [facility] 2021-11-16 2021-11-16 Office Brady Cardozo [facility] 1.2.840.114 [id number] Univers 15:15:00 17:31:02 Visit R HEALTH 350.1.13.10 it y of [place] 4.2.7.2.686 [place] C[place] [id number] [facility] [address] 2021-11-16 2021-11-16 Outpatient R BRADY CARDOZO [facility] [id number] Univers 15:15:00 15:15:00 ity of [facility] 2021-11-16 2021-11-16 Telephone [facility] 1.2.861.010 [id number] Univers 00:00:00 00:00:00 Anne-Marie HEALTH 350.1.13.10 it y of [place] 4.2.7.2.686 Hernan as DEONDRE?BLEA [phone] [facility] [address] MEDICAL OFFICE BUILDING 2021-11-16 2021-11-16 Orders Doctor NATA 1.2.840.114 [id number] Univers 00:00:00 00:00:00 Only Unassigned, DAY 350.1.13.10 ity of [place] [facility] 4.2.7.2.686 Hernan as [id number] [address] 2021-11-15 2021-11-15 Telephone [facility] 1.2.451.560 [id number] Univers 00:00:00 00:00:00 Ray HEALTH 350.1.13.10 it y of [place] 4.2.7.2.686 Hernan as DEONDRE?BLEA [phone] [address] OFFICE [facility] 2021-11-11 2021-11-11 Refill [facility] 1.2.840.114 [id number] Univers 00:00:00 00:00:00 Ray HEALTH 350.1.13.10 it y of [place] 4.2.7.2.686 Hernan as PROFESSIO [phone] [address] OFFICE BUILDING ONE 2021-11-11 2021-11-11 Orders Doctor NATA 1.2.840.114 [id number] Univers 00:00:00 00:00:00 Only Unassigned, DAY 350.1.13.10 ity of [place] [facility] 4.2.7.2.686 Hernan as [phone] [address] 2021-11-10 2021-11-10 Telephone [facility] 1.2.096.590 [id number] Univers 00:00:00 00:00:00 Ray HEALTH 350.1.13.10 it y of [place] 4.2.7.2.686 Hernan as DEONDRE?BLEA [id number] [address] OFFICE BUILDING 2021-11-09 2021-11-09 Outpatient R MAYRA [facility] [id number] Univers 11:30:00 12:43:06 ANNE-MARIE itarturo of [facility] 2021-11-09 2021-11-09 Outpatient R MAYRA [facility] [id number] Univers 11:30:00 12:43:06 ANNE-MARIE ity of [facility] 2021-11-09 2021-11-09 Office [facility] 1.2.840.114 [id number] Univers 11:30:00 12:43:06 [facility] 350.1.13.10 it y of [place] 4.2.7.2.686 Hernan as DEONDRE?BLEA [phone] [address] OFFICE BUILDING 2021-11-09 2021-11-09 Telephone [facility] 1.2.394.126 [id number] Univers 00:00:00 00:00:00 Anne-Marie HEALTH 350.1.13.10 it y of [place] 4.2.7.2.686 Hernan as DEONDRE?BLEA [phone] [facility] 220 [facility] OFFICE [facility] 2021-10-20 2021-10-20 Refnena Su[facility]NEW [facility] 1.2.840.114 [id number] Univers 00:00:00 00:00:00 Ray HEALTH 350.1.13.10 it y of [place] 4.2.7.2.686 Hernan as DEONDRE?BLEA [phone] [address] OFFICE [facility] 2021-10-20 2021-10-20 Refnena Su[facility]NEW [facility] 1.2.840.114 [id number] Univers 00:00:00 00:00:00 Ray HEALTH 350.1.13.10 it y of [place] 4.2.7.2.686 Hernan as PROFESSIO [id number] [address] OFFICE [facility] 2021-10-16 2021-10-16 Shayy [facility] 1.2.840.114 [id number] Univers 00:00:00 00:00:00 Ray HEALTH 350.1.13.10 it y of [place] 4.2.7.2.686 Hernan as PROFESSIO [phone] [address] OFFICE [facility] ONE 2021-10-13 2021-10-13 Outpatient R YASH [facility] [id number] Univers 15:00:00 15:55:16 [facility] ity [facility] 2021-10-13 2021-10-13 Office Yash [facility] 1.2.840.114 [id number] Univers 15:00:00 15:55:16 Visit [facility] 350.1.13.10 it y of [place] 4.2.7.2.686 [place] C[place] [phone] [facility] [address] 2021-10-11 2021-10-11 Outpatient R VIKASH [facility] [id number] Univers 12:00:00 12:45:07 RAY [facility] 2021-10-11 2021-10-11 Telephone [facility]NEW [facility] 1.2.172.648 [id number] Univers 00:00:00 00:00:00 [facility] 350.1.13.10 it y [facility] 4.2.7.2.686 Hernan as DEONDRE?BLEA [phone] Nm dical PORFIRIOEY [address] MEDICAL OFFICE BUILDING 2021-10-10 2021-10-10 Refill VikashNEW [facility]EX[facility] 1.2.840.114 [id number] Univers 00:00:00 00:00:00 [place] [facility]ALTH 350.1.13.10 it y [facility] 4.2.7.2.686 Hernan as PROFESSIO [phone] Nm adán [facility] [address] OFFICE BUILDING ONE 2021-10-08 2021-10-08 Orders Doctor NATA 1.2.840.114 [id number] Univers 00:00:00 00:00:00 Only Unassigned, DAY 350.1.13.10 ity of [place] [facility] 4.2.7.2.686 Hernan as [phone] [facility] [address] 2021-10-05 2021-10-05 Outpatient Dominick BERRIOS [facility] [id number] Univers 13:15:00 13:15:00 HUMAIR ity [facility] 2021-09-30 2021-09-30 Outpatient Dominick NUNEZ [facility] [id number] Univers 13:15:00 13:30:00 ANNE-MARIE [facility] 2021-09-30 2021-09-30 Cloth Roll Winder Muna, Adc Lab Main [facility] 1.2.8 40.114 [id number] Univers 13:15:00 13:30:00 Visit Anne-Marie Nunez 350.1.13.10 ity of [facility] 4.2.7.2.686 [place] HOLA[place] [phone] [facility] 353 [facility] 2021-09-30 2021-09-30 Outpatient R [facility] [id number] Univers 13:15:00 13:15:00 [facility] 2021-09-24 2021-09-24 Outpatient R [facility] [id number] Univers 13:15:00 13:15:00 HUMAIR [facility] 2021-09-24 2021-09-24 Outpatient R [facility] [id number] Univers 13:15:00 13:15:00 [facility] 2021-09-21 2021-09-21 Outpatient R [facility] [id number] Univers 09:00:00 11:31:54 [facility] 2021-09-18 2021-09-18 Shayy [facility] 1.2.840.114 [id number] Univers 00:00:00 00:00:00 Ray HEALTH 350.1.13.10 it y [place] 4.2.7.2.686 Hernan as DEONDRE?BLEA [phone] [facility] 044 [facility] OFFICE [facility] 2021-09-16 2021-09-16 Telephone [facility] 1.2.284.906 [id number] Univers 00:00:00 00:00:00 Anne-Marie HEALTH 350.1.13.10 it y of [place] 4.2.7.2.686 Hernan as DEONDRE?BLEA [phone] [facility] 220 [facility] 2021-09-14 2021-09-14 Telephone [facility] 1.2.422.808 [id number] Univers 00:00:00 00:00:00 [place] [facility] 350.1.13.10 it y of [place] 4.2.7.2.686 Hernan as DEONDRE?BLEA [phone] [facility] [address] MEDICAL OFFICE BUILDING 2021-09-14 2021-09-14 Refill Vik[facility]NEW [facility] 1.2.840.114 [id number] Univers 00:00:00 00:00:00 Ray HEALTH 350.1.13.10 it y of [place] 4.2.7.2.686 Hernan as PROFESSIO [id number] [address] OFFICE BUILDING ONE 2021-09-14 2021-09-14 Orders Doctor NATA 1.2.840.114 [id number] Univers 00:00:00 00:00:00 Only Unassigned, DAY 350.1.13.10 ity of [place] [facility] 4.2.7.2.686 Hernan as [phone] [address] 2021-09-08 2021-09-08 Outpatient [facility] [id number] Univers 14:30:00 15:14:48 [facility] 2021-09-08 2021-09-08 Office [facility] 1.2.840.114 [id number] Univers 14:30:00 15:14:48 Visit [facility] 350.1.13.10 it y of [facility] 4.2.7.2.686 Hernan as DEONDRE?BLEA [phone] [address] OFFICE [facility] 2021-08-27 2021-08-27 Outpatient R YASH [facility] [id number] Univers 14:30:00 15:26:15 [facility] 2021-08-27 2021-08-27 Outpatient R AYSH [facility] [id number] Univers 14:30:00 15:26:15 [facility] 2021-08-27 2021-08-27 Office [facility] 1.2.840.114 [id number] Univers 14:30:00 15:26:15 Visit [facility] 350.1.13.10 it y of [place] 4.2.7.2.686 [place] [phone] [facility] [address] 2021-08-27 2021-08-27 Outpatient [facility] [id number] Univers 14:30:00 14:30:00 HUMAIR ity [facility] 2021-08-20 2021-08-20 Outpatient R YASH [facility] [id number] Univers 14:45:00 15:18:56 HUMAIR ity [facility] 2021-08-20 2021-08-20 Office [facility] 1.2.840.114 [id number] Univers 14:45:00 15:18:[address] [facility] HEALTH 350.1.13.10 it y of [place] 4.2.7.2.686 [facility] [phone] [address] 2021-08-20 2021-08-20 Outpatient R YASH [facility] [id number] Univers 14:45:00 15:18:56 HUMAIR ity [facility] 2021-08-20 2021-08-20 Outpatient Dominick BERRIOS [facility] [id number] Univers 14:45:00 14:45:00 HUMAIR ity [facility] 2021-08-20 2021-08-20 Outpatient R YASH [facility] [id number] Univers 14:45:00 14:45:00 HUMAIR ity [facility] 2021-08-19 2021-08-19 [facility] [id number] Univers 11:18:00 13:35:00 HUMAIR ity [facility] 2021-08-19 2021-08-19 [facility] 1.2.840.114 [id number] Univers 11:18:00 13:35:00 Encounter [employer] SPECIALTY [id number] ity of CARE [id number] [facility] AT [phone] [address] 2021-08-19 2021-08-19 [facility] [id number] Univers 11:18:00 13:35:00 HUMAIR ity [facility] 2021-08-19 2021-08-19 [facility] 1.2.840.114 [id number] Univers 12:40:00 13:15:00 [employer] SPECIALTY [id number] [id number] [phone] Nm adán BLISS 020 [facility] 2021-08-19 2021-08-19 Orders Doctor NATA 1.2.840.114 [id number] Univers 00:00:00 00:00:00 Only Unassigned, DAY 350.1.13.10 ity of [facility] 4.2.7.2.686 [place] as [phone] [facility] [address] 2021-08-17 2021-08-17 Laboratory Only, Adc Test [facility] 1.2.840. 114 [id number] Univers 15:15:00 15:30:00 Only Mariola Berrios 350.1.13.10 [id number] [phone] [facility] [address] 2021-08-17 2021-08-17 Outpatient R YASH [facility] [id number] Univers 15:15:00 15:15:00 HUMAIR ity of [facility] 2021-08-16 2021-08-16 [facility]phone [facility] [id number] Univers 00:00:00 00:00:00 Ray HEALTH 350.1.13.10 it y of [place] 4.2.7.2.686 [place] as DEONDRE?BLEA [phone] [facility] MARIA DEL CARMEN [address] MEDICAL OFFICE BUILDING 2021-08-13 2021-08-13 Telephone Yash WIOSMAR [id number] Univers 00:00:00 00:00:00 [employer] HEALTH [id number] [place] [phone] [facility] [address] 2021-08-13 2021-08-13 Telephone [facility] [id number] Univers 00:00:00 00:00:00 Ray HEALTH 350.1.13.10 it y of [place] 4.2.7.2.686 [place] as DEONDRE?BLEA [phone] [address] MEDICAL OFFICE BUILDING 2021-08-12 2021-08-12 Office [facility] 1.2.840.114 [id number] Univers 12:00:00 12:15:00 Visit Ray HEALTH 350.1.13.10 it y of [place] 4.2.7.2.686 Hernan as DEONDRE?BLEA [phone] [facility] 044 [facility] OFFICE BUILDING 2021-08-12 2021-08-12 Outpatient R SUH [facility] [id number] Univers 12:00:00 12:00:00 RAY guidry [facility] 2021-08-12 2021-08-12 Outpatient R SUH [facility] [id number] Univers 12:00:00 12:00:00 RAY guidry [facility] 2021-08-12 2021-08-12 Orders Doctor NATA 1.2.840.114 [id number] Univers 00:00:00 00:00:00 Only Unassigned, DAY 350.1.13.10 ity of [place] [facility] 4.2.7.2.686 [place]an as [phone] [address] 2021-08-07 2021-08-07 Refill [facility] 1.2.840.114 [id number] Univers 00:00:00 00:00:00 Ray HEALTH 350.1.13.10 [facility] 4.2.7.2.686 [place] as PROFESSIO [phone] [facility] [address] OFFICE [facility] ONE 2021-08-03 2021-08-03 Orders Doctor NATA 1.2.840.114 [id number] Univers 00:00:00 00:00:00 Only Unassigned, DAY 350.1.13.10 ity of [place] [facility] 4.2.7.2.686 [place] as [phone] [address] 2021-07-28 2021-07-28 Scot Nunez [facility] 1.2.068.341 [id number] Univers 00:00:00 00:00:00 Anne-Marie HEALTH 350.1.13.10 it y of [place] 4.2.7.2.686 [place]an as DEONDRE?BLEA [phone] Nm dical KN [address] MEDICAL OFFICE BUILDING 2021-07-22 2021-07-22 Telephone [facility] 1.2.723.533 [id number] Univers 00:00:00 00:00:00 Wentong HEALTH 350.1.13.10 it y of [place] 4.2.7.2.686 [place]an as DEONDRE?BLEA [phone] Me dical MARIA DEL CARMEN 220 [facility] 2021-07-20 2021-07-20 Telephone [facility] 1.2.008.120 [id number] 0008 Univers 00:00:00 00:00:00 [place] HEALTH 350.1.13.10 it y of [place] 4.2.7.2.686 [place] as DEONDRE?BLEA [phone] Me dical MARIA DEL CARMEN 220 [facility] 2021-07-19 2021-07-19 Imm/Inj Nurse, Adc Pob Immunization [facility] 1.2.840.114 [id number] Univers 13:30:00 13:46:25 Visit Tony Lopez [place] 350.1.13 .10 ity of [place].2.7.2.[place] PROFESS[place] [phone] Me dical NAL 421 [facility] 2021-07-19 2021-07-19 Outpatient R ITALO [facility] [id number] Univers 13:30:00 13:30:00 TONY guidry [facility] 2021-07-19 2021-07-19 Shayy Suh [facility] 1.2.840.114 [id number] Univers 00:00:00 00:00:00 Ray HEALTH 350.1.13.10 it y of [place] 4.2.7.2.686 [place]an as PROFESSIO [phone] Me dical NAL 044 [facility] ONE 2021-07-16 2021-07-16 Scot [facility] 1.2.240.202 [id number] Univers 00:00:00 00:00:00 Humair HEALTH 350.1.13.10 it y of [place].2.[place] C[place] [phone] [address] 2021-07-14 2021-07-14 Outpatient R YASH [facility] [id number] Univers 14:00:00 15:20:01 HUMAIR ity of [facility] 2021-07-14 2021-07-14 Office [facility] 1.2.840.114 [id number] Univers 14:00:00 15:20:[address] [facility] HEALTH 350.1.13.10 it y of [place] 4.2.7.2.686 [place] [facility] [phone] [address] 2021-07-14 2021-07-14 [facility] [id number] Univers 14:00:00 14:00:00 HUMAIR ity of [facility] 2021-07-14 2021-07-14 Orders Doctor NATA 1.2.840.114 [id number] Univers 00:00:00 00:00:00 Only Unassigned, DAY 350.1.13.10 ity of [place] [facility] 4.2.7.2.686 [place] as [phone] [address] 2021-07-08 2021-07-08 Refnena [facility] 1.2.840.114 [id number] Univers 00:00:00 00:00:00 Ray HEALTH 350.1.13.10 it y of [place] 4.2.7.2.686 [place] as DEONDRE?BLEA [phone] Nm felicianome MARIA DEL CARMEN [address] [place] [address] MEDICAL OFFICE BUILDING 2021-07-07 2021-07-07 Orders Doctor PEACE 1.2.840.114 [id number] Univers 00:00:00 00:00:00 Only Unassigned, DAY 350.1.13.10 ity of [place] [facility] 4.2.7.2.686 [place] as [phone] [address] 2021-06-26 2021-06-26 Shayy [facility] 1.2.840.114 [id number] Univers 00:00:00 00:00:00 Ángel HEALTH 350.1.13.10 it y of [place] 4.2.7.2.686 [place] as PROFESSIO [phone] Nm feliciano[address] OFFICE BUILDING ONE 2021-06-22 2021-06-22 Orders Doctor PEACE 1.2.840.114 [id number] Univers 00:00:00 00:00:00 Only Unassigned, DAY 350.1.13.10 ity of [place] [facility] 4.2.7.2.686 [place] as [phone] [facility] [address] 2021-06-18 2021-06-18 Office Mayra [facility] 1.2.840.114 [id number] Univers 10:34:44 11:38:52 Visit [facility] 350.1.13.10 it y of [place] 4.2.7.2.686 [place]an as DEONDRE?BLEA [phone] [address] OFFICE [facility] 2021-06-18 2021-06-18 Outpatient R MAYRA [facility] [id number] Univers 10:30:00 11:38:52 ANNE-MARIE arturo [facility] 2021-06-18 2021-06-18 Outpatient Dominick NUNEZ [facility] [id number] Univers 10:30:00 10:30:00 [facility] 2021-06-16 2021-06-16 Office Yash [facility] 1.2.840.114 [id number] Univers 13:05:49 13:38:29 Visit [facility] 350.1.13.10 it y of [place] 4.2.7.2.686 [place] [facility] [phone] [address] 2021-06-16 2021-06-16 Outpatient Dominick BERRIOS [facility] [id number] Univers 13:00:00 13:38:29 HUMAIR ity [facility] 2021-06-16 2021-06-16 Outpatient Dominick BERRIOS [facility] [id number] Univers 13:00:00 13:00:00 HUMAIR ity [facility] 2021-06-16 2021-06-16 Outpatient Dominick BERRIOS [facility] [id number] Univers 13:00:00 13:00:00 HUMAIR ity [facility] 2021-06-10 2021-06-10 Office [facility] 1.2.840.114 [id number] Univers 13:06:01 13:26:23 Visit Ray HEALTH 350.1.13.10 it y of [place] 4.2.7.2.686 Herann as DEONDRE?BLEA [phone] [facility] [address] MEDICAL OFFICE [facility] 2021-06-10 2021-06-10 Outpatient R VIKASH [facility] [id number] Univers 13:00:00 13:26:23 RAY guidry [facility] 2021-06-10 2021-06-10 Outpatient R VIKASH [facility] [id number] Univers 13:00:00 13:00:00 RAY ity [facility] 2021-06-09 2021-06-09 Outpatient R VENU [facility] [id number] Univers 12:00:00 13:19:48 [facility] 2021-06-09 2021-06-09 Office [facility] 1.2.840.114 [id number] Univers 11:55:27 13:19:48 Visit [facility] 350.1.13.10 it y of [place] 4.2.7.2.686 [place] as DEONDRE?BLEA [phone] [facility] [address] MEDICAL OFFICE [facility] 2021-06-09 2021-06-09 Telephone [facility] 1.2.224.605 [id number] Univers 00:00:00 00:00:00 [facility] 350.1.13.10 [facility] 4.2.7.2.686 [place] as DEONDRE?BLEA [phone] [facility] [address] MEDICAL OFFICE [facility] 2021-06-09 2021-06-09 Orders Doctor PEACE 1.2.840.114 [id number] Univers 00:00:00 00:00:00 Only Unassigned, DAY 350.1.13.10 ity of [place] [facility] 4.2.7.2.686 [place] as [phone] [address] 2021-06-08 2021-06-08 Outpatient Dominick BERRIOS [facility] [id number] Univers 09:45:00 09:45:00 MARIOLA ity [facility] 2021-06-04 2021-06-04 Office Paco [facility] 1.2.840.114 [id number] Univers 10:16:58 10:50:48 Visit Aishat MULTISPEC 350.1.13.10 ity of [place] IALTY 4.2.7.2.686 [place] as CENTER [phone] [address] [facility] 2021-06-04 2021-06-04 Outpatient R [facility] [id number] Univers 10:00:00 10:50:48 AISHAT ity [facility] 2021-06-04 2021-06-04 Outpatient R [facility] [id number] Univers 10:00:00 10:50:48 AISHAT ity [facility] 2021-05-31 2021-05-31 Telephone [facility] 1.2.141.174 [id number] Univers 00:00:00 00:00:00 Ray HEALTH 350.1.13.10 it y of [place] 4.2.7.2.686 [place] as DEONDRE?BLEA [phone] [address] MEDICAL OFFICE BUILDING 2021-05-31 2021-05-31 Telephone [facility] 1.2.472.110 [id number] Univers 00:00:00 00:00:00 Ray HEALTH 350.1.13.10 it y of [place] 4.2.7.2.686 [place]an as DEONDRE?BLEA [phone] [address] MEDICAL OFFICE [facility] 2021-05-26 2021-05-26 Outpatient R [facility] [id number] Univers 13:15:00 13:15:00 AISHAT ity [facility] 2021-05-26 2021-05-[address] [facility] 1.2.840.114 [id number] Univers 12:57:08 13:12:08 [facility] 350.1.13.10 ity of [place] IALTY 4.2.7.2.686 [place] as CENTER [phone] [address] DI[facility]ETES CLINIC 2021-05-25 2021-05-[address] [facility] 1.2.840.114 [id number] Univers 07:15:00 08:32:00 Aishat SPECIALTY 350.1.13.10 ity of [place] CARE 4.2.7.2.686 [place] as CENTER AT [phone] Nm adán BLISS 020 [facility] 2021-05-25 2021-05-25 [facility] 1.2.821.263 [id number] Univers 06:02:00 08:01:00 Encounter Aishat SPECIALTY 350.1.13.10 ity of [place] CARE 4.2.7.2.686 [place] as CENTER AT [phone] Nm dicsallie BLISS 020 [facility] 2021-05-25 2021-05-25 Outpatient R [facility] [id number] Univers 06:02:00 08:01:00 AISHAT ity [facility] 2021-05-25 2021-05-25 Telephone [facility] 1.2.840.114 [id number] Univers 00:00:00 00:00:00 Aishat Y 350.1.13.10 it y of [place].2.[place] [phone] [facility] BLDG. [address] 2021-05-21 2021-05-21 Laboratory Only, Adc Test [facility] 1.2.840. 114 [id number] Univers 15:37:15 15:52:15 Only Paco, Mignon [place] 350. 1.13.10 ity of [place].2.7.2.686 [place] [phone] [facility] [address] 2021-05-21 2021-05-[address] [facility] 1.2.840.114 [id number] Univers 10:24:08 11:49:06 Visit Aist MULTISPEC 350.1.13.10 ity of [place] IALTY 4.2.7.2.686 [place] as CENTER [phone] [facility] AND [place] [address] DIAB[facility]ES CLINIC 2021-05-21 2021-05-21 Outpatient R [facility] [id number] Univers 10:15:00 10:15:00 AISHAT ity [facility] 2021-05-19 2021-05-19 Outpatient R [facility] [id number] Univers 08:15:00 08:15:00 AISHAT ity [facility] 2021-05-14 2021-05-[address] [facility] 1.2.840.114 [id number] Univers 09:50:02 11:33:18 Visit Aist MULTISPEC 350.1.13.10 ity of [facility] 4.2.7.2.686 [place] as CENTER [phone] [facility] AND [address] DIABETES CLINIC 2021-05-14 2021-05-14 Outpatient R [facility] [id number] Univers 10:15:00 10:15:00 AISHAT ity [facility] 2021-05-14 2021-05-14 Orders Doctor NATA 1.2.840.114 [id number] Univers 00:00:00 00:00:00 Only Unassigned, DAY 350.1.13.10 [facility] 4.2.7.2.686 [place] as [phone] [place] [address] [address] 2021-05-13 2021-05-13 Refnena [facility] 1.2.840.114 [id number] Univers 00:00:00 00:00:00 [facility] 350.1.13.10 it y of [place] 4.2.7.2.686 [place] as Professio [phone] Nm dical nal [address] [place] [address] Office Building One 2021-05-12 2021-05-12 Outpatient R [facility] [id number] Univers 14:30:00 14:30:00 AISHAT ity [facility] 2021-05-12 2021-05-12 Refnena [facility] 1.2.840.114 [id number] Univers 00:00:00 00:00:00 [facility] 350.1.13.10 it y of [place] 4.2.7.2.686 [place] as Professio [phone] Nm dical [facility] [address] Office Building One 2021-05-11 2021-05-11 Emergency Francisco, Austyn TRAUMA 1.2.840.114 [id number] Univers 00:33:00 02:34:00 [facility] 350.1.13.10 it y of [place].2.686 [place] [phone] [facility] [address] 2021-05-11 2021-05-11 Orders Doctor NATA 1.2.840.114 [id number] Univers 00:00:00 00:00:00 Only Unassigned, DAY 350.1.13.10 ity of [place] [facility] 4.2.7.2.686 [place] as [phone] [facility] [address] 2021-05-10 2021-05-10 Emergency Jian Angeles [facility] 1.2.840.114 [id number] Univers 19:49:00 23:26:00 Jennifergopal Shepherd 350.1.13.10 i ty of [place] 4.2.7.2.686 [place] [phone] [facility] [address] 2021-05-10 2021-05-10 Emergency X Jian ANGELES [facility] ERT [id number] Univers 19:49:00 23:26:00 ity of [facility] 2021-05-10 2021-05-10 Refnena [facility] 1.2.840.114 [id number] Univers 00:00:00 00:00:00 [facility] 350.1.13.10 it y of [place] 4.2.7.2.686 [place] as Professio [phone] [place] [address] [address] Office Building One 2021-05-10 2021-05-10 Shayy [facility] 1.2.840.114 [id number] Univers 00:00:00 00:00:00 Ray Shepherd 350.1.13.10 i ty of [place] 4.2.7.2.686 [place] Profess[place] [phone] [facility] [address] Building 2021-05-10 2021-05-10 Telephone Paco, UNIVERSIT 1.2.840.114 [id number] Univers 00:00:00 00:00:00 Aishat Y 350.1.13.10 it y of [facility] 4.2.7.2.686 [place] [phone] [facility] BLDG. [address] 2021-05-10 2021-05-10 Refnena [facility] 1.2.840.114 [id number] Univers 00:00:00 00:00:00 [facility] 350.1.13.10 it y of [place] 4.2.7.2.686 [place] as Deondre?Blea [phone] Nm adán joyce [address] [place] [address] Medical Office Building 2021-05-10 2021-05-10 Nurse NATA Thomas 1.2.840.114 [id number] Univers 00:00:00 00:00:00 Triage Aneatrice DAY 350.1.13.10 ity of [facility] 4.2.7.2.686 [place] as [phone] [facility] [address] 2021-05-08 2021-05-08 Nurse NATA Erwin 1.2.221.802 [id number] Univers 00:00:00 00:00:00 Triage Antoine DAY 350.1.13.10 it y of [facility] 4.2.7.2.686 [place] as [phone] [facility] [address] 2021-05-07 2021-05-[address] [facility] 1.2.840.114 [id number] Univers 08:47:19 09:32:24 Visit Aist MULTISPEC 350.1.13.10 ity of [facility] 4.2.7.2.686 [place] as CENTER [phone] [facility] AND ARELLANO [address] DI[facility]ETES CLINIC 2021-05-07 2021-05-07 Outpatient R [facility] [id number] Univers 08:00:00 08:00:00 AISHAT ity of [facility] 2021-05-06 2021-05-[address] [facility] 1.2.840.114 [id number] Univers 13:34:00 14:10:00 Aishat SPECIALTY 350.1.13.10 ity of [facility] 4.2.7.2.686 [place] as CENTER AT [phone] Nm adán BLISS 020 [facility] 2021-05-06 2021-05-06 [facility] 1.2.315.970 [id number] Univers 10:22:00 13:22:00 Encounter Aishat SPECIALTY 350.1.13.10 ity of [place] [facility] 4.2.7.2.686 [place] as CENTER AT [phone] Nm felicianosallie BLISS 020 [facility] 2021-05-06 2021-05-06 Orders Doctor NATA 1.2.840.114 [id number] Univers 00:00:00 00:00:00 Only Unassigned, DAY 350.1.13.10 ity of [place] [facility] 4.2.7.2.686 [place] as [phone] [facility] [address] 2021-05-05 2021-05-05 Laboratory Only, Adc Test [facility] 1.2.840. 114 [id number] Univers 11:00:31 11:15:31 Only Paco, Aishat [place] 350. 1.13.10 ity of [place] 4.2.7.2.[address] [facility] [phone] [facility] [address] 2021-05-05 2021-05-05 Outpatient R [facility] [id number] Univers 10:45:00 10:45:00 AISHAT ity of [facility] 2021-05-05 2021-05-05 Orders Doctor NATA 1.2.840.114 [id number] Univers 00:00:00 00:00:00 Only Unassigned, DAY 350.1.13.10 ity of [place] [facility] 4.2.7.2.686 [place] as [phone] [facility] [address] 2021-05-02 2021-05-02 Refill [facility] 1.2.840.114 [id number] Univers 00:00:00 00:00:00 [facility] 350.1.13.10 it y of [place] 4.2.7.2.686 [place] as Professio [phone] Nm adán mitsy [address] Office Building One 2021-04-28 2021-04-28 Telephone Vikash [facility] 1.2.111.983 [id number] Univers 00:00:00 00:00:00 [facility] 350.1.13.10 it y of [place] 4.2.7.2.686 [place] as Deondre?Blea [phone] Nm felicianosallie [facility] [address] Medical Office Building 2021-04-16 2021-04-16 Outpatient R [facility] [id number] Univers 13:45:00 15:24:04 AISHAT ity [facility] 2021-04-16 2021-04-16 Outpatient R [facility] [id number] Univers 13:45:00 15:24:04 AIST ity [facility] 2021-04-16 2021-04-[address] [facility] 1.2.840.114 [id number] Univers 13:31:43 15:24:04 Visit [facility] 350.1.13.10 ity of [place] IAY 4.2.7.2.686 [place] as CENTER [phone] [facility] AND [address] DIABETES CLINIC 2021-04-16 2021-04-16 Outpatient R [facility] [id number] Univers 13:45:00 13:45:00 AIST ity [facility] 2021-04-16 2021-04-16 Telephone [facility] 1.2.187.061 [id number] Univers 00:00:00 00:00:00 [facility] 350.1.13.10 it y of [place] 4.2.7.2.686 [place] as Deondre?Blea [phone] Nm adán joyce [address] Medical Office Building 2021-04-16 2021-04-16 Orders Doctor PEACE 1.2.840.114 [id number] Univers 00:00:00 00:00:00 Only Unassigned, DAY 350.1.13.10 ity of [place] [facility] 4.2.7.2.686 [place] as [phone] [facility] [address] 2021-04-14 2021-04-14 Orders Doctor NATA 1.2.840.114 [id number] Univers 00:00:00 00:00:00 Only Unassigned, DAY 350.1.13.10 ity of [place] [facility] 4.2.7.2.686 [place] as [phone] [address] 2021-04-12 2021-04-12 Office Vikash [facility] 1.2.840.114 [id number] Univers 12:34:10 12:49:10 Visit [facility] 350.1.13.10 it y of [place] 4.2.7.2.686 [place] as Deondre?Blea [phone] [address] Office [facility] 2021-04-12 2021-04-12 Outpatient R VIKASH [facility] [id number] Univers 12:30:00 12:30:00 RAY ity of [facility] 2021-04-08 2021-04-08 Refnena [facility] 1.2.840.114 [id number] Univers 00:00:00 00:00:00 [facility] 350.1.13.10 it y of [place] 4.2.7.2.686 [place] as Deondre?Blea [phone] [address] Office [facility] 2021-04-07 2021-04-07 Orders Doctor PEACE 1.2.840.114 [id number] Univers 00:00:00 00:00:00 Only Unassigned, DAY 350.1.13.10 ity of [place] [facility] 4.2.7.2.686 [place] as [phone] [address] 2021-04-06 2021-04-06 Refnena [facility] 1.2.840.114 [id number] Univers 00:00:00 00:00:00 [facility] 350.1.13.10 it y of [place] 4.2.7.2.686 [place] as Professio [phone] [address] Office [facility] One 2021-04-06 2021-04-06 Refnena [facility] 1.2.840.114 [id number] Univers 00:00:00 00:00:00 [facility] 350.1.13.10 it y of [place] 4.2.7.2.686 [place] as Professio [phone] [address] Office [facility] One 2021-04-05 2021-04-05 Orders Doctor PEACE 1.2.840.114 [id number] Univers 00:00:00 00:00:00 Only Unassigned, DAY 350.1.13.10 ity of [place] [facility] 4.2.7.2.686 [place] as [phone] [address] 2021-04-03 2021-04-03 Orders Doctor PEACE 1.2.840.114 [id number] Univers 00:00:00 00:00:00 Only Unassigned, DAY 350.1.13.10 ity of [place] [facility] 4.2.7.2.686 [place] as [phone] [address] 2021-03-30 2021-03-30 Orders Doctor PEACE 1.2.840.114 [id number] Univers 00:00:00 00:00:00 Only Unassigned, DAY 350.1.13.10 ity of [place] [facility] 4.2.7.2.686 [place] as [phone] [address] 2021-03-29 2021-03-29 Orders Doctor PEACE 1.2.840.114 [id number] Univers 00:00:00 00:00:00 Only Unassigned, DAY 350.1.13.10 ity of [place] [facility] 4.2.7.2.686 [place] as [phone] [address] 2021-03-29 2021-03-29 Orders Doctor PEACE 1.2.840.114 [id number] Univers 00:00:00 00:00:00 Only Unassigned, DAY 350.1.13.10 ity of [place] [facility] 4.2.7.2.686 [place] as [phone] [address] 2021-03-24 2021-03-24 Letter MARGARITA Suh 1.2.840.114 [id number] Univers 00:00:00 00:00:00 (Out) [facility] 350.1.13.10 it y of [place] 4.2.7.2.686 [place] as Deondre?Blea [phone] [address] Medical Office Building 2021-03-24 2021-03-24 Telephone MARGARITA Suh 1.2.002.064 [id number] Univers 00:00:00 00:00:00 [facility] 350.1.13.10 it y of [place] 4.2.7.2.686 [place] as Deondre?Blea [phone] Nm dicsallie joyce [address] Medical Office Building 2021-03-23 2021-03-23 Office [facility] 1.2.840.114 [id number] Univers 10:10:52 11:17:06 Visit [facility] 350.1.13.10 it y of [place] 4.2.7.2.686 [place] as Deondre?Blea [phone] Nm adán joyce [address] Medical Office Building 2021-03-23 2021-03-23 Out[facility] [id number] Univers 10:00:00 10:00:00 ANNE-MARIE ity of [facility] 2021-03-23 2021-03-23 Telephone [facility] 1.2.483.955 [id number] Univers 00:00:00 00:00:00 [facility] 350.1.13.10 it y of [place] 4.2.7.2.686 [place] as Deondre?Blea [phone] Nm dicsallie joyce [address] [facility] 2021-03-16 2021-03-16 Orders Doctor NATA 1.2.840.114 [id number] Univers 00:00:00 00:00:00 Only Unassigned, DAY 350.1.13.10 ity of [facility] 4.2.7.2.686 Hernan as [phone] [address] 2021-03-16 2021-03-16 [facility]phone [facility] [id number] Univers 00:00:00 00:00:00 [facility] 350.1.13.10 it y of [place] 4.2.7.2.686 Hernan as Professio [phone] Nm adán jay [address] [facility] 2021-03-16 2021-03-16 Orders Doctor NATA 1.2.840.114 [id number] Univers 00:00:00 00:00:00 Only Unassigned, DAY 350.1.13.10 ity of [facility] 4.2.7.2.686 [place]an as [phone] [address] 2021-03-10 2021-03-10 [facility] 1.2.840.114 [id number] Univers 00:00:00 00:00:00 [facility] 350.1.13.10 it y of [place] 4.2.7.2.686 [place] as Professio [phone] [facility] [address] 2021-03-04 2021-03-04 Telephone [facility] [id number] Univers 00:00:00 00:00:00 [place] 350.1.13.10 i [place] 4[place]2.7.2.[place] [phone] [facility] [address] [facility] 2021-03-03 2021-03-03 Ref[facility] 1.2.840.114 [id number] Univers 00:00:00 00:00:00 [facility] 350.1.13.10 it y of [place] 4.2.7.2.686 [place] as Professio [phone] [facility] [address] 2021-02-14 2021-02-14 Ref[facility] 1.2.840.114 [id number] Univers 00:00:00 00:00:00 [facility] 350.1.13.10 it y of [place] 4.2.7.2.686 [place] as Professio [phone] [facility] [address] 2021-02-10 2021-02-10 Office [facility] 1.2.840.114 [id number] Univers 13:15:25 13:30:25 Visit [facility] 350.1.13.10 it y of [place] 4.2.7.2.686 [place] as Professio [phone] [address] Office Building One 2021-02-10 2021-02-10 Outpatient R VIKASH [facility] [id number] Univers 13:00:00 13:00:00 RAY guidry [facility] 2021-02-102021-02-10 Orders Doctor NATA 1.2.840.114 [id number] Univers 00:00:00 00:00:00 Only Unassigned, DAY 350.1.13.10 ity of [place] [facility] 4.2.7.2.686 [place] as [phone] [address] 2021-02-10 2021-02-10 Telephone [facility] 1.2.806.919 [id number] Univers 00:00:00 00:00:00 Wentong [place] 350.1.13.10 i [place] [phone] Nm dical nal 220 [facility] 2021-02-08 2021-02-08 Ref[facility]ena [facility] 1.2.840.114 [id number] Univers 00:00:00 00:00:00 [facility] 350.1.13.10 it y of [place] 4.2.7.2.686 [place] Professio [phone] Nm dical nal [address] Office [address] One 2021-02-04 2021-02-04 Orders Doctor NATA 1.2.840.114 [id number] Univers 00:00:00 00:00:00 Only Unassigned, DAY 350.1.13.10 ity of [place] [facility] 4.2.7.2.686 [place] as [phone] [address] 2021-01-21 2021-01-21 Shayy SuhTOPEKA, UTOSMAR 1.2.840.114 [id number] Univers 00:00:00 00:00:00 [facility] 350.1.13.10 it y of [place] 4.2.7.2.686 [place] as Professio [phone] Nm dical nal [address] Office [facility] One 2021-01-07 2021-01-07 [facility] 1.2.840.114 [id number] Univers 00:00:00 00:00:00 [facility] 350.1.13.10 it y of [place] 4.2.7.2.686 [place] Professio [phone] Nm dical nal [address] [facility] One 2020-12-292020-12-29 Office Venu [facility] 1.2.840.114 [id number] Univers 16:04:37 16:54:10 Visit Darryn [place] 350.1.13.10 i [place] [phone] [facility] 220 [facility] 2020-12-29 2020-12-29 Outpatient R VENU [facility] [id number] Univers 16:00:00 16:54:10 [facility] 2020-12-29 2020-12-29 Outpatient R VENU [facility] [id number] Univers 16:00:00 16:00:00 [facility] 2020-12-29 2020-12-29 Telephone Vikash [facility] 1.2.358.117 [id number] Univers 00:00:00 00:00:00 [facility] 350.1.13.10 it y of [place] 4.2.7.2.686 [place] Professio [phone] [facility] 044 [facility] 2020-12-29 2020-12-29 Orders Doctor NATA 1.2.840.114 [id number] Univers 00:00:00 00:00:00 Only Unassigned, DAY 350.1.13.10 ity of [place] [facility] 4.2.7.2.686 [place] as [phone] [address] 2020-12-22 2020-12-22 Telephone Vikash [facility] 1.2.120.992 [id number] Univers 00:00:00 00:00:00 [facility] 350.1.13.10 it y of [place] 4.2.7.2.686 [place] Professio [phone] [facility] 044 [facility] 2020-12-21 2020-12-21 Outpatient R VIKASH [facility] [id number] Univers 12:00:00 12:00:00 [facility] 2020-12-16 2020-12-16 [facility] 1.2.856.474 [id number] Univers 09:30:00 23:59:00 Encounter Layne [facility] 350.1.13.10 ity of [place] 4.2.7.2.686 [facility] [phone] [facility] & [facility] 2020-12-16 2020-12-16 Outpatient R DEANN [facility] [id number] Univers 09:30:00 23:59:00 LAYNE ity [facility] 2020-12-16 2020-12-16 Office Zacarias, [facility] 1.2.840.114 [id number] Univers 14:47:01 15:02:01 Visit Layne Victor HEALTH 350.1.13.10 it y of [place] 4.2.7.2.686 [facility] [phone] [facility] & [address] [facility] 2020-12-16 2020-12-16 Outpatient R DEANN [facility] [id number] Univers 14:30:00 14:30:00 LAYNE ity [facility] 2020-12-14 2020-12-14 Office [facility] 1.2.840.114 [id number] Univers 14:10:35 14:40:35 [facility] 350.1.13.10 it y of [place] 4.2.7.2.686 [place] Professio [phone] [address] Office [facility] One 2020-12-14 2020-12-14 Outpatient R VIKASH [facility] [id number] Univers 14:30:00 14:30:00 RAY ity [facility] 2020-12-09 2020-12-09 Refill Doctor [facility] 1.2.840.114 [id number] Univers 00:00:00 00:00:00 Unassigned, Health 350.1.13.10 ity of [place] 4.2.7.2.686 [place] as Professio [phone] Nm dicme nal [address] [facility] One 2020-12-09 2020-12-09 Refill Vikash [facility] 1.2.840.114 [id number] Univers 00:00:00 00:00:00 [facility] 350.1.13.10 it y of [place] 4.2.7.2.686 [place] Professio [phone] Nm dical nal [address] Office Building One 2020-12-08 2020-12-08 Outpatient R DEANN [facility] [id number] Univers 10:00:00 10:00:00 LAYNE ity of [facility] 2020-12-08 2020-12-08 Outpatient R DEANN [facility] [id number] Univers 10:00:00 10:00:00 LAYNE ity of [facility] 2020-12-07 2020-12-07 Abstract [facility] 1.2.154.185 [id number] Univers 00:00:00 00:00:00 Layne [facility] 350.1.13.10 it y of [place] 4.2.7.2.686 [facility] [phone] [facility] 2020-11-27 2020-11-27 Patient Doctor NATA 1.2.840.114 [id number] 00:00:00 00:00:00 Secure Msg Unassigned, DAY 350.1.13.10 [place] [facility] 4.2.7.2.686 [phone] 2020-11-27 2020-11-27 Patient Doctor NATA 1.2.840.114 [id number] Univers 00:00:00 00:00:00 Secure Msg Unassigned, DAY 350.1.13.10 ity of [place] [facility] 4.2.7.2.686 [place] as [phone] [facility] 0[address] Branch 2020-11-26 2020-11-26 [facility] 1.2.162.080 [id number] 15:00:00 23:59:00 Encounter Jovanni [place] 350.1.13.10 [place] 4.2.7.2.686 [place] [phone] 2020-11-26 2020-11-26 [facility] 1.2.655.050 [id number] Univers 15:00:00 23:59:00 Encounter Jovanni [place] 350.1.13.10 ity of [place] 4.2.7.2.686 [facility] [phone] [facility] 806 Branch 2020-11-262020-11-26 Outpatient R JESUSDREWJory [facility] [id number] Univers 15:30:00 15:30:00 JOVANNI ity of [facility] 2020-11-26 2020-11-26 Cloth Roll Winder Muna [facility] Lab Main [facility] 1.2.8 40.114 [id number] Univers 15:08:01 15:23:01 Visit Jovanni Amador [place] 350.1.13.10 ity of [place]2.[place].2.[place] [phone] Nm dical nal 353 [facility] 2020-11-26 2020-11-26 Cloth Roll Winder Muna [facility] 1.2.840.114 [id number] 15:08:01 15:23:01 Visit Lab Main [place] 350.1.13.10 [place] 4.2.7.2.686 Professio [phone] [address] 2020-11-26 2020-11-26 Orders Doctor NATA 1.2.840.114 [id number] Univers 00:00:00 00:00:00 Only Unassigned, DAY 350.1.13.10 ity of [place] [facility] 4.2.7.2.686 [place] as [phone] [address] 2020-11-24 2020-11-24 Outpatient R [facility] [id number] Univers 19:00:00 19:00:00 ity of [facility] 2020-11-24 2020-11-24 Urgent Provider, [facility] Care [facility] 1.2.840.114 [id number] Univers 16:48:23 17:08:23 Care Nata Wong [facility] 350.1.13.10 ity of [place] 4.2.7.2.686 [place] Professio [phone] Nm dical nal [address] Office Building One 2020-11-19 2020-11-19 Office Perry [facility] 1.2.840.114 [id number] Univers 16:06:46 17:02:53 Visit [facility] 350.1.13.10 i ty of [place].2.[place] [phone] Nm dical nal 204 [facility] 2020-11-19 2020-11-19 Outpatient R PERRY [facility] [id number] Univers 16:00:00 17:02:53 JOVANNI [facility] 2020-11-19 2020-11-19 Outpatient R PERRY [facility] [id number] Univers 16:00:00 16:00:00 JOVANNI ity [facility] 2020-11-19 2020-11-19 Orders Doctor NATA 1.2.840.114 [id number] Univers 00:00:00 00:00:00 Only Unassigned, DAY 350.1.13.10 ity of [place] [facility] 4.2.7.2.686 [place] as [phone] [address] 2020-11-17 2020-11-17 Ref[facility]ena [facility] 1.2.840.114 [id number] Univers 00:00:00 00:00:00 [facility] 350.1.13.10 it y of [place] 4.2.7.2.686 [place] Professio [phone] Nm dical [facility] 044 [facility] One 2020-11-10 2020-11-10 Ref[facility] 1.2.840.114 [id number] Univers 00:00:00 00:00:00 [facility] 350.1.13.10 it y of [place] 4.2.7.2.686 [place] Professio [phone] [facility] nal 044 [facility] One 2020-11-09 2020-11-09 [facility]ayy [facility] 1.2.840.114 [id number] Univers 00:00:00 00:00:00 [facility] 350.1.13.10 it y of [place] 4.2.7.2.686 [place] Professio [phone] [facility] nal [address] [place] [address] One 2020-11-09 2020-11-09 Scot [facility] 1.2.416.828 [id number] 4084 Univers 00:00:00 00:00:00 Wentong [place] 350.1.13.10 i ty of [place]2.7.2.[place] [phone] Nm dical nal [address] Building 2020-11-06 2020-11-06 Orders Doctor NATA 1.2.840.114 [id number] Univers 00:00:00 00:00:00 Only Unassigned, DAY 350.1.13.10 ity of [place] [facility] 4.2.7.2.686 [place] as [phone] [address] 2020-10-28 2020-10-28 Orders Doctor NATA 1.2.840.114 [id number] Univers 00:00:00 00:00:00 Only Unassigned, DAY 350.1.13.10 ity of [place] [facility] 4.2.7.2.686 [place] as [phone] [address] 2020-10-22 2020-10-22 Telephone Venu [facility] 1.2.162.696 [id number] Univers 00:00:00 00:00:00 Wentong MULTISPEC 350.1.13.10 ity of [place].2.[place] [phone] [facility] [place] [address] [facility] 2020-10-19 2020-10-19 Office Vikash [facility] 1.2.840.114 [id number] Univers 13:10:17 13:25:17 Visit [facility] 350.1.13.10 it y of [place] 4.2.7.2.686 [place] Professio [phone] [facility] [address] Building One 2020-10-19 2020-10-19 Outpatient R VIKASH WIOSMAR [facility] [id number] Univers 13:15:00 13:15:00 RAY ity of [facility] 2020-10-19 2020-10-19 Orders Doctor PEACE 1.2.840.114 [id number] Univers 00:00:00 00:00:00 Only Unassigned, DAY 350.1.13.10 ity of [place] [facility] 4.2.7.2.686 [place] as [phone] [address] 2020-10-07 2020-10-07 Refill Vikash [facility] 1.2.840.114 [id number] Univers 00:00:00 00:00:00 [facility] 350.1.13.10 it y of [place] 4.2.7.2.686 [place] Professio [phone] [facility] [address] [facility] One 2020-10-01 2020-10-01 Urgent Provider, [facility] 1.2.840.114 [id number] Univers 10:29:39 10:49:39 Care Falguni Zamorano [facility] 350.1.13.10 ity of [place] 4.2.7.2.686 [place] Professio [phone] [facility] [address] [facility] One 2020-10-01 2020-10-01 Outpatient R [facility] [id number] Univers 10:40:00 10:40:00 ity of [facility] 2020-09-09 2020-09-09 Office Venu [facility] 1.2.840.114 [id number] Univers 11:03:17 12:03:50 Visit [facility] 350.1.13.10 i ty of [place] 4[place]2.7.2.[place] [phone] [facility] 220 [facility] 2020-09-09 2020-09-09 Outpatient R VENU [facility] [id number] Univers 11:00:00 11:00:00 WENTONG ity of [facility] 2020-09-09 2020-09-09 Refnena Suh [facility] 1.2.840.114 [id number] Univers 00:00:00 00:00:00 [facility] 350.1.13.10 it y of [place] 4.2.7.2.686 [place] Professio [phone] [address] Office Building One 2020-09-09 2020-09-09 Orders Doctor PEACE 1.2.840.114 [id number] Univers 00:00:00 00:00:00 Only Unassigned, DAY 350.1.13.10 ity of [place] [facility] 4.2.7.2.686 [place] as [phone] [address] 2020-09-02 2020-09-02 Refnena Suh [facility] 1.2.840.114 [id number] Univers 00:00:00 00:00:00 [facility] 350.1.13.10 it y of [place] 4.2.7.2.686 [place] Professio [phone] [facility] [address] [facility] One 2020-08-31 2020-08-31 Outpatient R СЕРГЕЙ [facility] [id number] Univers 08:50:00 08:50:00 MEREDITH ity [facility] 2020-08-26 2020-08-26 Cloth Roll Winder 2, Adc Lab [facility] 1.2.840.114 [id number] Univers 13:27:35 13:42:35 Visit Darryn Lea 350.1.13.10 ity of [place] [phone] [facility] 353 [facility] 2020-08-26 2020-08-26 Office Venu [facility] 1.2.840.114 [id number] Univers 10:10:41 12:54:04 Visit Darryn Shepherd 350.1.13.10 i ty of [place] 4[place]2.[place].2.[place] [phone] [facility] 220 [facility] 2020-08-26 2020-08-26 Outpatient R VENU [facility] [id number] Univers 10:00:00 10:00:00 [facility] 2020-08-26 2020-08-26 Shayy Suh [facility] 1.2.840.114 [id number] Univers 00:00:00 00:00:00 Ray Shepherd 350.1.13.10 i ty of [place].2.[place] [phone] [facility] 044 [facility] 2020-08-26 2020-08-26 Orders Doctor PEACE 1.2.840.114 [id number] Univers 00:00:00 00:00:00 Only Unassigned, DAY 350.1.13.10 ity of [place] [facility] 4.2.7.2.686 [place] as [phone] [address] 2020-08-24 2020-08-24 Telephone Vikash [facility] 1.2.975.681 [id number] Univers 00:00:00 00:00:00 [facility] 350.1.13.10 it y of [place] 4.2.7.2.686 [place] Professio [phone] [facility] 044 [facility] 2020-08-14 2020-08-14 Refnena Suh [facility] 1.2.840.114 [id number] Univers 00:00:00 00:00:00 [facility] 350.1.13.10 it y of [place] 4.2.7.2.686 [place] Professio [phone] [facility] 044 [facility] 2020-08-12 2020-08-12 Telephone Venu [facility] 1.2.477.904 [id number] Univers 00:00:00 00:00:00 Wentong [place] 350.1.13.10 i ty of [place].2.[place] [phone] [facility] 220 [facility] 2020-08-12 2020-08-12 Orders Doctor NATA 1.2.840.114 [id number] Univers 00:00:00 00:00:00 Only Unassigned, DAY 350.1.13.10 ity of [place] [facility] 4.2.7.2.686 [place] as [phone] [address] 2020-08-10 2020-08-10 Refnena Suh [facility] 1.2.840.114 [id number] Univers 00:00:00 00:00:00 [facility] 350.1.13.10 it y of [place] 4.2.7.2.686 [place] Professio [phone] [facility] 044 [facility] 2020-08-03 2020-08-03 Outpatient Dominick RUSHING [facility] [id number] Univers 15:40:00 15:40:00 MEREDITH ity of [facility] 2020-08-03 2020-08-03 Office Vikash [facility] 1.2.840.114 [id number] Univers 12:09:59 12:24:59 Visit [facility] 350.1.13.10 it y of [place] 4.2.7.2.686 [place] Professio [phone] [address] One 2020-08-03 2020-08-03 Outpatient R VIKASH [facility] [id number] Univers 12:00:00 12:00:00 [facility] 2020-07-28 2020-07-28 Outpatient R MAURICE [facility] [id number] Univers 15:00:00 15:00:[address] [facility] 2020-07-21 2020-07-21 [facility] 1.2.840.114 [id number] Univers 00:00:00 00:00:00 [facility] 350.1.13.10 it y of [place] 4.2.7.2.686 [place] Professio [phone] [address] 2020-07-16 2020-07-16 Shayy [facility] 1.2.840.114 [id number] Univers 00:00:00 00:00:00 [facility] 350.1.13.10 it y of [place] 4.2.7.2.686 [place] Professio [phone] [address] 2020-07-15 2020-07-15 Outpatient R VENU [facility] [id number] Univers 11:30:00 11:30:00 WENTONG [facility] 2020-07-09 2020-07-09 [facility]ayy [facility] 1.2.840.114 [id number] Univers 00:00:00 00:00:00 [facility] 350.1.13.10 it y of [place] 4.2.7.2.686 [place] Professio [phone] [address] One 2020-07-03 2020-07-03 Outpatient R MAURICE [facility] [id number] Univers 14:00:00 14:00:00 SENDIL [facility] 2020-06-29 2020-06-29 [facility] [id number] Univers 12:00:00 12:00[facility] 2020-06-23 2020-06-23 Outpatient R [facility] [id number] Univers 11:20:00 11:20:00 ity of [facility] 2020-06-23 2020-06-23 Urgent Provider, [facility] 1.2.840.114 [id number] Univers 10:51:46 11:11:46 Care Charity [facility] 350.1.13.10 ity of [place] 4.2.7.2.686 [place] Professio [phone] Nm dical nal [address] One 2020-06-23 2020-06-23 Refnena Nash [facility] 1.2.840.114 [id number] Univers 00:00:00 00:00:00 [facility] 350.1.13.10 it y of [place] 4.2.7.2.686 [place] Professio [phone] Nm dical nal [address] One 2020-06-18 2020-06-18 Refill [facility] 1.2.840.114 [id number] Univers 00:00:00 00:00:00 [facility] 350.1.13.10 it y of [place] 4.2.7.2.686 [place] Professio [phone] Nm dical nal [address] One 2020-06-10 2020-06-10 Refill [facility] 1.2.840.114 [id number] Univers 00:00:00 00:00:00 [facility] 350.1.13.10 it y of [place] 4.2.7.2.686 [place] Professio [phone] Nm dical nal [address] One 2020-06-03 2020-06-03 Office [facility] 1.2.840.114 [id number] Univers 12:40:27 13:11:57 Visit [facility] 350.1.13.10 it y of [place] 4.2.7.2.686 [place] Professio [phone] Nm dical nal [address] One 2020-06-03 2020-06-03 [facility] [id number] Univers 13:00:00 13:00:00 RAY ity of [facility] 2020-05-22 2020-05-22 Transition Brain [place] 1.2.840.114 [id number] Univers 00:00:00 00:00:00 of Yoni Sorto 350.1.13.10 ity of [place] [phone] [facility] [address] 2020-05-20 2020-05-21 Emergency HerrmannTremayne [facility] 1.2.840. 114 [id number] Univers 17:02:00 20:33:00 Jackie Busby 350.1.13.10 ity of [place].2.[place] [phone] [facility] [address] 2020-05-19 2020-05-19 Telephone Vikash [facility] 1.2.194.949 [id number] Univers 00:00:00 00:00:00 [facility] 350.1.13.10 it y of [place] 4.2.7.2.686 [place] Professio [phone] Nm dical nal [address] [facility] 2020-05-12 2020-05-12 Telephone [facility] 1.2.277.869 [id number] Univers 00:00:00 00:00:00 Briannaong [place] 350.1.13.10 i ty [place].2.[place] [phone] Nm dical nal 220 [facility] 2020-05-11 2020-05-11 Refill [facility] 1.2.840.114 [id number] Univers 00:00:00 00:00:00 [facility] 350.1.13.10 it y of [place] 4.2.7.2.686 [place] Professio [phone] Nm dical nal [address] [facility] 2020-05-05 2020-05-05 Telephone [facility] 1.2.632.530 [id number] Univers 00:00:00 00:00:00 Wentong [place] 350.1.13.10 i ty [place] [phone] [address] 2020-05-05 2020-05-05 Orders Doctor NATA 1.2.840.114 [id number] Univers 00:00:00 00:00:00 Only Unassigned, DAY 350.1.13.10 ity of [place] [facility] 4.2.7.2.686 [place] as [phone] [address] 2020-05-04 2020-05-04 Telephone Lea, [facility] 1.2.811.293 [id number] Univers 00:00:00 00:00:00 Wentong [place] 350.1.13.10 i ty of [place].2.[place] [phone] [address] 2020-05-04 2020-05-04 Telephone Lea, [facility] 1.2.109.995 [id number] Univers 00:00:00 00:00:00 Wentong [place] 350.1.13.10 i ty of [place] 4[place]2.7.2.[place] [phone] [address] 2020-05-04 2020-05-04 Orders Doctor NATA 1.2.840.114 [id number] Univers 00:00:00 00:00:00 Only Unassigned, DAY 350.1.13.10 ity of [place] [facility] 4.2.7.2.686 [place] as [phone] [address] 2020-05-01 2020-05-01 Orders Doctor NATA 1.2.840.114 [id number] Univers 00:00:00 00:00:00 Only Unassigned, DAY 350.1.13.10 ity of [place] [facility] 4.2.7.2.686 [place] as [phone] [address] 2020-04-30 2020-04-30 Telephone Lea, [facility] 1.2.684.069 [id number] Univers 00:00:00 00:00:00 Wentong [place] 350.1.13.10 i ty [place].2.[place] [phone] [address] 2020-04-29 2020-04-29 Cloth Roll Winder Lab, Adc Fam Pob I [facility] 1.2. 840.114 [id number] Univers 12:37:03 12:47:03 Visit Ray Suh 350.1.13.10 ity of [place] 4.2.7.2.686 [place] Professio [phone] [address] Office [facility] 2020-04-29 2020-04-29 Office Vikash [facility] 1.2.840.114 [id number] Univers 12:13:59 12:28:59 Visit Ray [facility] 350.1.13.10 it y of [place] 4.2.7.2.686 [place] Professio [phone] [address] 2020-04-29 2020-04-29 Outpatient R VIKASH [facility] [id number] Univers 12:15:00 12:15:00 RAY guidry [facility] 2020-04-27 2020-04-27 Orders Doctor NATA 1.2.840.114 [id number] Univers 00:00:00 00:00:00 Only Unassigned, DAY [id number] ity of [place] [facility] 4.2.7.2.686 [place] as [phone] [address] 2020-04-22 2020-04-22 Urgent Provider, [facility] 1.2.840.114 [id number] Univers 13:29:40 14:11:57 Care Ray Su[facility] [id number] ity of [place] [id number] [place] as Professio [phone] [address] Office [facility] 2020-04-22 2020-04-22 Outpatient Dominick SUH [facility] [id number] Univers 13:20:00 13:20:00 RAY guidry [facility] 2020-04-21 2020-04-21 Refill Vikash [facility] 1.2.840.114 [id number] Univers 00:00:00 00:00:00 [facility] [id number] it y of [place] 4.2.7.2.686 [place] as Professio [phone] [address] Office [facility] 2020-04-21 2020-04-21 Telephone Venu [facility] [id number] Univers 00:00:00 00:00:00 Darryn Shepherd [id number] i [id number] [phone] Nm dical [facility] [address] [facility] 2020-04-16 2020-04-16 Cloth Roll Winder 2, Adc Lab [facility] 1.2.840.114 [id number] Univers 09:22:17 09:37:17 Visit Ray Suh 350.1.13.10 [place]2.[place] Professio [phone] [facility] 353 [facility] 2020-04-16 2020-04-16 Outpatient R [facility] [id number] Univers 09:15:00 09:15:00 ity of [facility] 2020-04-15 2020-04-15 Office [facility] 1.2.840.114 [id number] Univers 16:00:38 17:03:36 Visit Briannakristy Shepherd 350.1.13.10 [place] [phone] [facility] 220 [facility] 2020-04-15 2020-04-15 Outpatient R VENU [facility] [id number] Univers 16:00:00 16:00:00 WENTONG ity [facility] 2020-04-13 2020-04-13 Orders Doctor PEACE 1.2.840.114 [id number] Univers 00:00:00 00:00:00 Only Unassigned, DAY 350.1.13.10 ity of [place] [facility] 4.2.7.2.686 [place] as [phone] [address] 2020-04-09 2020-04-09 Refill Vikash [facility] 1.2.840.114 [id number] Univers 00:00:00 00:00:00 [facility] 350.1.13.10 it y of [place] 4.2.7.2.686 [place] Professio [phone] [facility] [address] [place] Office [facility] 2020-04-07 2020-04-07 [facility] 1.2.840.114 [id number] Univers 00:00:00 00:00:00 [facility] 350.1.13.10 it y of [place] 4.2.7.2.686 [place] Professio [phone] [address] Office Building One 2020-04-07 2020-04-07 Orders Doctor NATA 1.2.840.114 [id number] Univers 00:00:00 00:00:00 Only Unassigned, DAY 350.1.13.10 ity of [place] [facility] 4.2.7.2.686 [place] as [phone] [address] 2020-04-01 2020-04-01 [facility] 1.2.840.114 [id number] Univers 00:00:00 00:00:00 [facility] 350.1.13.10 it y of [place] 4.2.7.2.686 [place] Professio [phone] [address] Office [facility] One 2020-03-27 2020-03-27 [facility] 1.2.840.114 [id number] Univers 00:00:00 00:00:00 [facility] 350.1.13.10 it y of [place] 4.2.7.2.686 [place] Professio [phone] [address] One 2020-03-11 2020-03-11 [facility]y [facility] 1.2.840.114 [id number] Univers 00:00:00 00:00:00 [facility] 350.1.13.10 it y of [place] 4.2.7.2.686 [place] Professio [phone] [facility] nal [address] [place] [address] Office Building One 2020-03-01 2020-03-01 Shayy Vi[facility] 1.2.840.114 [id number] Univers 00:00:00 00:00:00 [facility] 350.1.13.10 it y of [place] 4.2.7.2.686 [place] Professio [phone] [address] Office Building One 2020-02-10 2020-02-10 Scot [facility] 1.2.592.492 [id number] Univers 00:00:00 00:00:00 [facility] 350.1.13.10 it y of [place] 4.2.7.2.686 [place] Professio [phone] [facility] 044 [facility] 2020-02-09 2020-02-09 Refill [facility] 1.2.840.114 [id number] Univers 00:00:00 00:00:00 [facility] 350.1.13.10 it y of [place] 4.2.7.2.686 [place] Professio [phone] [facility] nal 044 [facility] 2020-02-07 2020-02-07 Refnena [facility] 1.2.840.114 [id number] Univers 00:00:00 00:00:00 [facility] 350.1.13.10 it y of [place] 4.2.7.2.686 [place] Professio [phone] [address] 2020-02-04 2020-02-04 Outpatient R VENU [facility] [id number] Univers 14:30:00 14:30:00 [place] billarturo [facility] 2020-02-04 2020-02-04 Telemedicjory LeaNEW [facility] 1.2.840.114 [id number] Univers 08:05:00 11:41:37 ne Visit Darryn Marston 350.1.13.10 it[place] of [place] [phone] [facility] 220 [facility] 2020-02-03 2020-02-03 [facility] [id number] Univers 14:15:00 14:15:00 RAY billarturo [facility] 2020-02-03 2020-02-03 Telemedici [facility] 1.2.840.114 [id number] Univers 08:28:20 08:43:20 ne Visit Ray Shepherd 350.1.13.10 ity of [place] [phone] [address] 2020-01-21 2020-01-21 Telephone Venu [facility] 1.2.924.781 [id number] Univers 00:00:00 00:00:00 Darryn Shepherd 350.1.13.10 i [place] [phone] Nm dical nal 220 [facility] 2020-01-21 2020-01-21 Orders Doctor NATA 1.2.840.114 [id number] Univers 00:00:00 00:00:00 Only Unassigned, DAY 350.1.13.10 ity of [place] [facility] 4.2.7.2.686 [place] as [phone] [address] 2020-01-14 2020-01-14 Telephone [facility] 1.2.500.182 [id number] Univers 00:00:00 00:00:00 Ray Shepherd 350.1.13.10 i [place] [phone] Nm dical nal 044 [facility] 2020-01-08 2020-01-08 Refill [facility] 1.2.840.114 [id number] Univers 00:00:00 00:00:00 [facility] 350.1.13.10 it y of [place] 4.2.7.2.686 [place] Professio [phone] Nm dical nal 044 [facility] One 2019-12-20 2019-12-20 Outpatient R LILIA RICH [facility] 10 [id number] Univers 13:00:00 13:00:00 LILIA RICH i ty of [facility] 2019-12-20 2019-12-20 Telemedici Bucky [facility] 1.2.840.114 [id number] Univers 08:17:31 08:37:31 ne Visit Lilia Shepherd 350.1.13.10 ity of [place] [phone] Nm dical nal 085 [facility] 2019-12-12 2019-12-12 Telephone Vikash [facility] 1.2.652.837 [id number] Univers 00:00:00 00:00:00 [facility] 350.1.13.10 it y of [place] 4.2.7.2.686 [place] Professio [phone] [address] 2019-12-09 2019-12-09 Shayy [facility] 1.2.840.114 [id number] Univers 00:00:00 00:00:00 [facility] 350.1.13.10 it y of [place] 4.2.7.2.686 [place] Professio [phone] [address] 2019-12-06 2019-12-06 Shayy [facility] 1.2.840.114 [id number] Univers 00:00:00 00:00:00 [facility] 350.1.13.10 it y of [place] 4.2.7.2.686 [place] Professio [phone] [address] 2019-11-21 2019-11-21 Outpatient [facility] [id number] Univers 12:00:00 12:00:00 RAY itarturo [facility] 2019-11-21 2019-11-21 Telemedici Vik[facility]NEW [facility] 1.2.840.114 [id number] Univers 07:13:41 07:28:41 ne Visit Ray Shepherd 350.1.13.10 ity of [place] [phone] [address] 2019-11-21 2019-11-21 [facility] 1.2.840.114 [id number] Univers 00:00:00 00:00:00 [facility] 350.1.13.10 it y of [place] 4.2.7.2.686 [place] Professio [phone] [address] 2019-11-18 2019-11-18 Telephone [facility] 1.2.639.809 [id number] Univers 00:00:00 00:00:00 Ray Shepherd 350.1.13.10 i ty [place] [phone] Nm dic[address] 2019-11-11 2019-11-11 Telephone [facility] 1.2.082.027 [id number] Univers 00:00:00 00:00:00 Ray Shepherd 350.1.13.10 i ty [place] [phone] [address] 2019-11-11 2019-11-11 Orders Doctor NATA 1.2.840.114 [id number] Univers 00:00:00 00:00:00 Only Unassigned, DAY 350.1.13.10 ity of [facility] 4.2.7.2.686 [place] [phone] [address] 2019-11-05 2019-11-05 [facility] 1.2.902.841 [id number] Univers 00:00:00 00:00:00 Ray Shepherd 350.1.13.10 i ty [place] [phone] [address] 2019-11-03 2019-11-03 Refill [facility] 1.2.840.114 [id number] Univers 00:00:00 00:00:00 Ray Shepherd 350.1.13.10 i [place] [phone] Nm dicme nal [address] [place] [address] 2019-10-23 2019-10-23 Outpatient R LILIA RICH [facility] 10 [id number] Univers 11:40:01 23:59:00 LILIA RICH i ty of [facility] 2019-10-23 2019-10-23 [facility] 1.2.840.114 [id number] Univers 11:30:00 23:59:00 Encounter Lilia Shepherd 350.1.13.10 ity of [place]2.7.2.686 [place] [phone] [address] 2019-10-23 2019-10-23 Outpatient R LILIA RICH [facility] 10 [id number] Univers 00:00:00 00:00:00 LILIA RICH i ty of [facility] 2019-10-23 2019-10-23 Orders Doctor NATA 1.2.840.114 [id number] Univers 00:00:00 00:00:00 Only Unassigned, DAY 350.1.13.10 ity of [place] [facility] 4.2.7.2.686 [place] [phone] [address] 2019-10-11 2019-10-11 Office [facility] 1.2.840.114 [id number] Univers 11:53:08 12:47:38 Visit Lilia [place] 350.1.13.10 i ty [place]2.[place].2.[place] [phone] Nm dical nal 085 [facility] 2019-10-11 2019-10-11 Outpatient R LILIA RICH [facility] 10 [id number] Univers 11:00:00 11:00:00 LILIA RICH i ty of [facility] 2019-10-07 2019-10-07 Refill [facility] 1.2.840.114 [id number] Univers 00:00:00 00:00:00 [facility] 350.1.13.10 it y of [place] 4.2.7.2.686 [place] Professio [phone] [facility] 044 [facility] 2019-10-03 2019-10-03 Refill [facility] 1.2.840.114 [id number] Univers 00:00:00 00:00:00 [facility] 350.1.13.10 it y of [place] 4.2.7.2.686 [place] Professio [phone] Nm dical nal 044 [facility] 2019-10-02 2019-10-02 Office [facility] 1.2.840.114 [id number] Univers 11:45:20 12:45:22 Visit Darryn Shepherd 350.1.13.10 i [place] [phone] Nm dical nal 220 [facility] 2019-10-02 2019-10-02 Outpatient R VENU [facility] [id number] Univers 11:30:00 11:30:00 DARRYN ity [facility] 2019-10-02 2019-10-02 Orders Doctor NATA 1.2.840.114 [id number] Univers 00:00:00 00:00:00 Only Unassigned, DYA 350.1.13.10 ity of [place] [facility] 4.2.7.2.686 [place] [phone] [address] 2019-09-23 2019-09-23 Office [facility] 1.2.840.114 [id number] Univers 11:58:44 12:11:14 Visit [facility] 350.1.13.10 it y of [place] 4.2.7.2.686 [place] Professio [phone] [address] 2019-09-23 2019-09-23 Outpatient R VIKASH [facility] [id number] Univers 12:00:00 12:00:00 [facility] 2019-09-16 2019-09-16 Refill [facility] 1.2.840.114 [id number] Univers 00:00:00 00:00:00 [facility] 350.1.13.10 it y of [place] 4.2.7.2.686 [place] Professio [phone] [address] 2019-09-12 2019-09-12 Refnena [facility] 1.2.840.114 [id number] Univers 00:00:00 00:00:00 [facility] 350.1.13.10 it y of [place] 4.2.7.2.686 [place] Professio [phone] [address] 2019-09-03 2019-09-03 Refnena [facility] 1.2.840.114 [id number] Univers 00:00:00 00:00:00 Ray Shepherd 350.1.13.10 i ty of [place].2.[place] Profess[place] [phone] [address] 2019-08-21 2019-08-21 Refnena [facility] 1.2.840.114 [id number] Univers 00:00:00 00:00:00 [facility] 350.1.13.10 it y of [place] 4.2.7.2.686 [place] Professio [phone] [address] Office [facility] One 2019-07-29 2019-07-29 Outpatient R FLORIAN [facility] [id number] Univers 13:20:48 23:59:00 ELLIE ity of [facility] 2019-07-22 2019-07-22 Orders Doctor NATA 1.2.840.114 [id number] Univers 00:00:00 00:00:00 Only Unassigned, DAY 350.1.13.10 ity of [place] [facility] 4.2.7.2.686 [place] [phone] [address] 2019-04-10 2019-04-10 [place] [facility] 1.2.318.509 [id number] Univers 00:00:00 00:00:00 [facility] 350.1.13.10 it y of [place] 4.2.7.2.686 [place] Professio [phone] [address] Office [facility] One 2019-04-02 2019-04-02 Shayy [facility] 1.2.840.114 [id number] Univers 00:00:00 00:00:00 [facility] 350.1.13.10 it y of [place] 4.2.7.2.686 [place] Professio [phone] [address] Office [facility] One 2019-03-29 2019-03-29 Shayy [facility] 1.2.840.114 [id number] Univers 00:00:00 00:00:00 [facility] 350.1.13.10 it y of [place] 4.2.7.2.686 [place] Professio [phone] [address] Office Building One 2019-03-27 2019-03-27 Shayy [facility] 1.2.840.114 [id number] Univers 00:00:00 00:00:00 [facility] 350.1.13.10 it y of [place] 4.2.7.2.686 [place] Professio [phone] [address] Office Building One 2019-03-23 2019-03-23 Refnena Basilio [facility] 1.2.840.114 [id number] Univers 00:00:00 00:00:00 [facility] 350.1.13.10 it y of [place] 4.2.7.2.686 [place] Professio [phone] [address] Office Building One 2019-03-20 2019-03-21 Office [facility] 1.2.840.114 [id number] Univers 13:17:58 08:12:27 Visit [facility] 350.1.13.10 it y of [place] 4.2.7.2.686 [place] Professio [phone] [address] One 2019-03-20 2019-03-20 Telephone [facility]NEW [facility] 1.2.670.109 [id number] Univers 00:00:00 00:00:00 [facility] 350.1.13.10 it y of [place] 4.2.7.2.686 [place] Professio [phone] [address] Office [facility] One 2019-03-20 2019-03-20 Refnena Suh [facility] 1.2.840.114 [id number] Univers 00:00:00 00:00:00 [facility] 350.1.13.10 it y of [place] 4.2.7.2.686 [place] Professio [phone] [address] Office [facility] One 2019-03-14 2019-03-14 Refnena [facility] 1.2.840.114 [id number] Univers 00:00:00 00:00:00 [facility] 350.1.13.10 it y of [place] 4.2.7.2.686 [place] Professio [phone] [address] Office Building One 2019-02-28 2019-02-28 Refnena KerryNEW [facility] 1.2.840.114 [id number] Univers 00:00:00 00:00:00 [facility] 350.1.13.10 i ty of [place] 4.2.7.2.686 [place] Professio [phone] Nm dical nal [address] [place] Office Building One 2019-02-26 2019-02-26 MARGARITA Gardner 1.2.840.114 [id number] Univers 00:00:00 00:00:00 [facility] 350.1.13.10 it y of [place] 4.2.7.2.686 [place] Professio [phone] Nm dical nal [address] Office Building One 2019-02-22 2019-02-22 Orders Doctor NATA 1.2.840.114 [id number] Univers 00:00:00 00:00:00 Only Unassigned, DAY 350.1.13.10 ity of [place] [facility] 4.2.7.2.686 [place] as [phone] [address] 2017-09-15 2017-09-15 Orders Doctor NATA 1.2.840.114 [id number] Univers 00:00:00 00:00:00 Only Unassigned, DAY 350.1.13.10 ity of [place] [facility] 4.2.7.2.686 [place] [phone] [address] Results Test Description Test Time Test [...] 3267) clear Lab Interpretation (test code = 72378-1) Normal [facility], [id number] 22:05:00 Test Item Value Reference Range Interpretation [...] 3267) Lab Interpretation (test code Normal = 76072-3) [facility]
[2022-07-24] MEDS ORDERED: HYDROCODONE/APAP 5/325 MG TAB ONE (10:12)
[2022-07-24] MEDS ORDERED: ACETAMINOPHEN 325 MG TABLET ONE (10:12)
[2022-07-24] MEDS ORDERED: NA CHLORIDE 0.9% 1,000 ML ONE ×2 (10:13→12:06)
[2022-07-24 10:32] LABS: Absolute Lymphocytes (CBC) 0.5 K/uL (0.7-4.9); Lymphocytes % 3.3 % (15.3-44.8); MCV 88.7 fL (80-100); MPV 10.4 fL (7.6-11.3); RBC Red Blood Cell Count 3.95 M/uL (4.33-5.43)
[2022-07-24 10:35] LABS: Protime INR 1.07
--- NOTE | 2022-07-24 10:40 | RAD REPORT ---
EXAM DESCRIPTION: RAD - Chest Single View - 07/24/2022 10:16 am CLINICAL HISTORY: COUGH Chest pain. COMPARISON: Chest Single View dated 07/22/2022; Chest Single View dated 12/06/2020; Chest Single View dated 02/17/2019; CHEST PA AND LAT 2 VIEW dated 01/14/2012 FINDINGS: Portable technique limits examination quality. The lungs are emphysematous but grossly clear. The heart is normal in size. No displaced fractures. IMPRESSION: COPD.
[2022-07-24 10:44] LABS: Albumin 2.9 g/dL (3.4-5.0); Bilirubin Total 0.7 mg/dL (0.2-1.0); Potassium 3.2 mmol/L (3.5-5.1); Protein, Total 6.6 g/dL (6.4-8.2)
[2022-07-24 11:12] LABS: SARS-COV-2 RT PCR NEGATIVE (NEGATIVE)
[2022-07-24 11:21] LABS: Troponin High Sensitivity 15.3 pg/mL (<58.9)
--- NOTE | 2022-07-24 11:40 | RAD REPORT ---
EXAM DESCRIPTION: CT - Chest For Pe Angio - 07/24/2022 11:17 am CLINICAL HISTORY: Chest pain. hypoxia, tachycardia COMPARISON: CTANGIO CHEST FOR PE dated 03/22/2008 TECHNIQUE: CT angiogram of the pulmonary arteries was performed with MIP. All CT scans are performed using dose optimization technique as appropriate and may include automated exposure control or mA/KV adjustment according to patient size. FINDINGS: No evidence of pulmonary thromboembolism. No acute aortic finding demonstrated. Moderate COPD is present. Mild linear atelectasis is present both lung bases. No significant pericardial or pleural fluid. No concerning bony finding. IMPRESSION: No evidence of pulmonary thromboembolism. Moderate COPD.
--- NOTE | 2022-07-24 11:45 | RAD REPORT ---
EXAM DESCRIPTION: CT - Abdomen W Contrast CLINICAL HISTORY: s/p whipple procedure Abdominal pain COMPARISON: Abdomen Pelvis W Contrast dated 07/22/[address] scans are performed using dose optimization technique as appropriate and may includ e automated exposure control or mA/KV adjustment according to patient size. FINDINGS: Mild atelectasis is present in both lung bases. There are several air and fluid collections seen in the left lobe of the liver as well as superior to the left lobe of the liver. There is pneumobilia is seen in the left lobe of liver. Postsurgical carmela nges are present involving the pancreatic head and uncinate process. Cholecystectomy. The remaining p ancreatic parenchyma shows multiple calcifications suggesting chronic pancreatitis. The spleen, adren al glands and right kidney are normal. Small punctate stone is seen in the left kidney. No bowel obstruction, free air or significant intra-abdominal free fluid. Moderate stool is present t hroughout the colon. No significant adenopathy in the abdomen. No significant bony finding. IMPRESSION: Postsurgical changes are present of Whipple procedure. Chronic pancreatitis changes are present in the remnant pancreatic tissue. Air and fluid collections are seen in the region of the left lobe of the liver, largest measuring 4.8 cm, of indeterminate sterility.
[2022-07-24] MEDS ORDERED: KCL 20 MEQ/100 mL IVPB 100 ML IV ONE (12:06)
[2022-07-24] MEDS ORDERED: Meropenem 1000 MG/VIAL IV ONE (13:31)
[2022-07-24] MEDS ORDERED: NA CHLORIDE 0.9% 100 ML IV ONE (13:31)
[2022-07-24 13:39] LABS: Urine Blood Trace-intact (Negative); Urine Glucose 2+ (Negative); Urine Protein 2+ (Negative); Urine pH 5.5 (5.0-7.0)
[2022-07-24 13:51] LABS: Transitional Epithelial <5 /HPF (None Seen); Urine Bacteria None Seen /HPF (<20)
--- NOTE | 2022-07-24 14:27 | EDPHYS ---
Physician Documentation [facility] Name: Rafia Segundo Age: 66 yrs Sex: Male : 1955 Arrival Date: 07/24/2022 Time: 09:42 Bed 8 Private MD: ED Physician Antoine Fragoso HPI: 07/24 10:17 This 66 yrs old Male presents to ER via EMS with complaints of Flu Symptoms. snw 10:17 The patient or guardian reports cough. Onset: The symptoms/episode began/occurred 2 snw week(s) ago, and became worse and became persistent. Associated signs and symptoms: Pertinent positives: fever, rhinorrhea. Severity of symptoms: At their worst the symptoms were moderate severe in the emergency department the symptoms are worse. The patient has not experienced similar symptoms in the past. The patient has been recently seen by a physician: the patient's primary care provider, Dr. Dr. Rangel. Recent CoVid booster. Historical: - Allergies: 09:44 Skelaxin; bp - Home Meds: 09:44 Clonazepam Oral [Active]; Creon oral [Active]; Cyclobenzaprine Oral [Active]; bp gabapentin oral [Active]; Hydrocodone-Acetaminophen Oral [Active]; Lovastatin Oral [Active]; - PMHx: 09:44 Pancreatitis; RESTLESS LEG SYN; neuropathy; Insulin pump; pancreatic CA; Hypertension; bp Diabetes - IDDM; COPD; Chronic pain; Cancer of gall bladder duct; Back pain; Blockages in right leg, left carotid and abdomen; - PSHx: 09:44 Appendectomy; Whipple; liver lobe resection; knee sx; Cholecystectomy; back sx; bp shoulder SX; - Immunization history:: Adult Immunizations up to date, Client reports receiving the 2nd dose of the Covid vaccine, Flu vaccine is up to date. - Social history:: Smoking status: Patient reports the use of cigarette tobacco products, unknown amount. ROS: 10:07 Eyes: Negative for injury, pain, redness, and discharge, ENT: Negative for injury, snw pain, and discharge, Neck: Negative for injury, pain, and swelling, Cardiovascular: Negative for chest pain, palpitations, and edema. 10:07 Abdomen/GI: Negative for abdominal pain, nausea, vomiting, diarrhea, and constipation, Back: Negative for injury and pain, : Negative for injury, bleeding, discharge, and swelling, MS/Extremity: Negative for injury and deformity, Skin: Negative for injury, rash, and discoloration, Neuro: Negative for headache, weakness, numbness, tingling, and seizure, Psych: Negative for depression, anxiety, suicide ideation, homicidal ideation, and hallucinations. 10:07 Constitutional: Positive for body aches, fatigue, fever, malaise. 10:07 Respiratory: Positive for cough. Exam: 10:03 Head/Face: Normocephalic, atraumatic. Eyes: Pupils equal round and reactive to light, snw extra-ocular motions intact. Lids and lashes normal. Conjunctiva and sclera are non-icteric and not injected. Cornea within normal limits. Periorbital areas with no swelling, redness, or edema. 10:03 Neck: Trachea midline, no thyromegaly or masses palpated, and no cervical lymphadenopathy. Supple, full range of motion without nuchal rigidity, or vertebral point tenderness. No Meningismus. Chest/axilla: Normal chest wall appearance and motion. Nontender with no deformity. No lesions are appreciated. 10:03 Abdomen/GI: Soft, non-tender, with normal bowel sounds. No distension or tympany. No guarding or rebound. No evidence of tenderness throughout. Back: No spinal tenderness. No costovertebral tenderness. Full range of motion. Skin: Warm, dry with normal turgor. Normal color with no rashes, no lesions, and no evidence of cellulitis. MS/ Extremity: Pulses equal, no cyanosis. Neurovascular intact. Full, normal range of motion. Neuro: Awake and alert, GCS 15, oriented to person, place, time, and situation. Cranial nerves II-XII grossly intact. Motor strength 5/5 in all extremities. Sensory grossly intact. Cerebellar exam normal. Normal gait. Psych: Awake, alert, with orientation to person, place and time. Behavior, mood, and affect are within normal limits. 10:03 Constitutional: The patient appears awake, lethargic, obviously ill, pale, uncomfortable. 10:03 ENT: Mouth: Oral mucosa: dry. 10:03 Cardiovascular: Rate: tachycardic, Rhythm: regular, Heart sounds: murmur, systolic, grade 3 over 6, Edema: is not appreciated. 10:03 Respiratory: the patient does not display signs of respiratory distress, Respirations: shallow respirations, Breath sounds: bronchial sounds. Vital Signs: 09:42 BP 148 / 68; Pulse 124; Resp 24; Temp 100.2; Pulse Ox 94% on R/A; Weight 78.02 kg; bp Height 5 ft. 9 in. (175.26 cm); 10:55 BP 147 / 71; Pulse 105; Resp 19; Pulse Ox 90% on R/A; bp 12:00 BP 110 / 52; Pulse 95; Resp 24; Pulse Ox 92% ; kb3 13:00 BP 128 / 57; Pulse 87; Resp 21; Pulse Ox 91% ; bp 14:00 BP 122 / 62; Pulse 85; Resp 24; Pulse Ox 93% ; bp 15:00 BP 129 / 51; Pulse 81; Resp 12; Temp 98.9; Pulse Ox 100% ; bp 16:00 BP 116 / 56; Pulse 89; Resp 26; Pulse Ox 91% ; bp 17:00 BP 114 / 87; Pulse 93; Resp 24; Pulse Ox 93% ; bp 18:00 BP 139 / 103; Pulse 90; Resp 21; Pulse Ox 94% ; bp 09:42 Body Mass Index 25.40 (78.02 kg, 175.26 cm) bp MDM: 09:44 Patient medically screened. snw 14:01 Data reviewed: vital signs, nurses notes. Data interpreted: Pulse oximetry: on room air snw is 92 %. Interpretation: hypoxia. Plan: O2 by NC applied. Counseling: I had a detailed discussion with the patient and/or guardian regarding: the historical points, exam findings, and any diagnostic results supporting the discharge/admit diagnosis, lab results, radiology results, the need to transfer to another facility, initiated transfer for liver abscess. Transition of care: After a detail discussion of the patient's case, care is transferred to Antoine Fragoso MD. 07/24 09:45 Order name: Blood Culture Adult (2) snw 07/24 09:45 Order name: CBC with Diff; Complete Time: 10:46 snw 07/24 09:45 Order name: CMP; Complete Time: 10:46 snw 07/24 09:45 Order name: Lactate w/ 2H reflex if indic.; Complete Time: 10:46 snw 07/24 09:45 Order name: Protime (+inr); Complete Time: 10:46 snw 12/25 09:45 Order name: Ptt, Activated; Complete Time: 10:46 snw 07/24 09:45 Order name: Urine Microscopic Only; Complete Time: 13:57 snw 07/24 09:45 Order name: COVID-19/FLU A+B/RSV; Complete Time: 11:25 snw 07/24 10:02 Order name: Lipase; Complete Time: 11:25 snw 07/24 10:02 Order name: AMMONIA; Complete Time: 10:46 snw 07/24 10:02 Order name: Procalcitonin; Complete Time: 11:25 snw 07/24 10:03 Order name: Troponin High Sensitivity; Complete Time: 11:25 snw 07/24 13:39 Order name: Urine Dipstick-Ancillary; Complete Time: 13:57 EDMS 07/24 17:14 Order name: Glucose, Ancillary Testing EDMS 07/24 09:45 Order name: Chest Single View XRAY; Complete Time: 10:46 snw 07/24 09:45 Order name: EKG; Complete Time: 09:45 snw 07/24 09:45 Order name: Accucheck; Complete Time: 09:49 snw 07/24 09:45 Order name: Cardiac monitoring; Complete Time: 10:06 snw 07/24 10:49 Order name: CT Chest For PE Angio; Complete Time: 11:46 snw 07/24 10:49 Order name: CT Abdomen - IV Contrast Only; Complete Time: 11:46 snw 07/24 09:45 Order name: EKG - Nurse/Tech; Complete Time: 10:06 snw 07/24 09:45 Order name: IV Saline Lock - Large Bore; Complete Time: 09:49 snw 07/24 09:45 Order name: Labs collected and sent; Complete Time: 10:18 snw 07/24 09:45 Order name: O2 Per Protocol; Complete Time: 09:49 snw 07/24 09:45 Order name: O2 Sat Monitoring; Complete Time: 09:49 snw 07/24 09:45 Order name: Vital Signs; Complete Time: 09:49 snw EC:18 Rate is 113 beats/min. Rhythm is regular. QRS [place] is Normal. MS interval is normal. snw QRS interval is normal. Clinical impression: Sinus tachycardia. Administered Medications: 10:15 Drug: [place] (HYDROcodone-acetaminophen) 5 mg-325 mg 1 tabs Route: PO; bp 13:25 Follow up: Response: No adverse reaction bp 10:15 Drug: Tylenol 650 mg Route: PO; bp 13:25 Follow up: Response: No adverse reaction bp 10:15 Drug: NS 0.9% 1000 ml Route: IV; Rate: 1 bolus; Site: left antecubital; bp 14:58 Follow up: IV Status: Completed infusion; IV Intake: 1000ml bp 11:45 Drug: Potassium Chloride 20 mEq Route: IV; Rate: calculated rate; Site: right upper arm;bp 14:57 Follow up: IV Status: Completed infusion; IV Intake: 100ml bp 13:39 Drug: Merrem 1 grams Route: IV; Rate: calculated rate; Site: right upper arm; bp 14:58 Follow up: IV Status: Completed infusion; IV Intake: 100ml bp 14:30 Drug: Tamiflu (oseltamivir) 75 mg Route: PO; bp 17:51 Follow up: Response: No adverse reaction bp 14:45 Drug: SOLU-Medrol (methylPrednisoLONE) 125 mg Route: IVP; Site: right upper arm; bp 17:52 Follow up: Response: No adverse reaction bp 14:45 Drug: Xopenex (levalbuterol) 2.5 mg Route: Inhalation; bp 14:45 Drug: AtroVENT (ipratropium) Aerosol 0.5 mg Route: Inhalation; bp 14:45 Drug: Pepcid (famotidine) 20 mg Route: IVP; Site: right upper arm; bp 17:51 Follow up: Response: No adverse reaction bp Disposition: 14:27 Co-signature as Attending Physician, Antoine Fragoso MD I agree with the assessment and carmela plan of care. Disposition Summary: 07/24/22 14:27 Transfer Ordered Transfer Location: [facility] carmela Reason: Higher level of care carmela Condition: Fair carmela Problem: new carmela Symptoms: have improved carmela Accepting Physician: mahesh hernández(07/24/22 18:44) bp Diagnosis - COPD/ Chronic obstructive pulmonary disease with acute lower respiratory infection carmela - Abnormal findings on diagnostic imaging of other abdominal regions, including carmela retroperitoneum - air fluid level 4.8cm left lobe liver, abscess - Influenza due to identified novel influenza A virus carmela - Fever, unspecified carmela - Elevated white blood cell count carmela - Hypoxemia carmela Discharge Instructions: - Discharge Summary Sheet kj1 Forms: - Medication Reconciliation Form carmela - SBAR form kj1 Signatures: Dispatcher [employer] Antoine Gayle MD MD cha Waters, Shelly, CORPORATE QUALITY ENGINEER-C CORPORATE QUALITY ENGINEER-Brady Nowak RN RN bp Corrections: (The following items were deleted from the chart) 18:44 14:27 to [facility], [facility] bp
--- NOTE | 2022-07-24 14:27 | ER ---
Nurse's Notes [facility] Name: Rafia Segundo Age: 66 yrs Sex: Male : 1955 Arrival Date: 07/24/2022 Time: 09:42 Bed 8 Private MD: Diagnosis: COPD/ Chronic obstructive pulmonary disease with acute lower respiratory infection;Abnormal findings on diagnostic imaging of other abdominal regions, including retroperitoneum-air fluid level 4.8cm left lobe liver, abscess;Influenza due to identified novel influenza A virus;Fever, unspecified;Elevated white blood cell count;Hypoxemia Presentation: 07/24 09:42 Chief complaint: EMS states: SEEN AND TREATED FOR FLU x1 WK AGO, INCREASING WEAKNESS bp AND MALAISE. Coronavirus screen: cough unrelated to allergies, diarrhea, fever, muscle pain, Client presents with at least one sign or symptom that may indicate coronavirus-19. Standard/surgical mask placed on the client. Provider contacted for isolation considerations. Ebola Screen: No symptoms or risks identified at this time. Initial Sepsis Screen: Does the patient meet any 2 criteria? RR > 20 per min. HR > 90 bpm. Yes Does the patient have a suspected source of infection? Yes: Productive cough/pneumonia. Risk Assessment: Do you want to hurt yourself or someone else? Patient reports no desire to harm self or others. Onset of symptoms is unknown. Care prior to arrival: IV initiated. 20 GA, in the left antecubital area, Glucose check: 272. 09:42 Method Of Arrival: EMS: [facility] bp 09:42 Acuity: ARBEN 3 bp Triage Assessment: 09:44 General: Appears distressed, uncomfortable, ill, Behavior is calm, cooperative, bp appropriate for age. Pain: Denies pain. EENT: No deficits noted. Neuro: Reports headache. Cardiovascular: Rhythm is sinus tachycardia. Respiratory: Reports cough that is Breath sounds are coarse bilaterally. GI: Reports diarrhea. : No signs and/or symptoms were reported regarding the genitourinary system. Derm: No deficits noted. Musculoskeletal: No deficits noted. Historical: - Allergies: :44 Skelaxin; bp - Home Meds: :44 Clonazepam Oral [Active]; Creon oral [Active]; Cyclobenzaprine Oral [Active]; bp gabapentin oral [Active]; Hydrocodone-Acetaminophen Oral [Active]; Lovastatin Oral [Active]; - PMHx: 09:44 Pancreatitis; RESTLESS LEG SYN; neuropathy; Insulin pump; pancreatic CA; Hypertension; bp Diabetes - IDDM; COPD; Chronic pain; Cancer of gall bladder duct; Back pain; Blockages in right leg, left carotid and abdomen; - PSHx: 09:44 Appendectomy; Whipple; liver lobe resection; knee sx; Cholecystectomy; back sx; bp shoulder SX; - Immunization history:: Adult Immunizations up to date, Client reports receiving the 2nd dose of the Covid vaccine, Flu vaccine is up to date. - Social history:: Smoking status: Patient reports the use of cigarette tobacco products, unknown amount. Screenin:48 [facility] ED Fall Risk Assessment (Adult) History of falling in the last 3 months, bp including since admission No falls in past 3 months (0 pts). Abuse screen: Denies threats or abuse. Denies injuries from another. Nutritional screening: No deficits noted. Tuberculosis screening: No symptoms or risk factors identified. Assessment: 09:48 General: SEE TRIAGE NOTE. bp 10:30 Reassessment: Pt's son called and stated "my dad has been confused and delirious for aa5 about 3 to 4 weeks and it's gotten way worse and he is not making any sense anymore, he also has only voided once in about 2 days". Provider was notified. Pt's son is Rafia Segundo Jr, phone number: [phone]. . 10:55 Reassessment: No changes from previously documented assessment. Patient and/or family bp updated on plan of care and expected duration. Pain level reassessed. Neuro: Level of Consciousness is awake, alert, obeys commands, Oriented to Appropriate for age. 12:46 Reassessment: No changes from previously documented assessment. Patient and/or family bp updated on plan of care and expected duration. Pain level reassessed. PT RETURNED FROM CT. 14:00 Reassessment: No changes from previously documented assessment. Patient and/or family bp updated on plan of care and expected duration. Pain level reassessed. 15:13 Reassessment: REPORT TO MAJESTY HO FOR RM [id number] AT [facility]. bp 16:55 Reassessment: PER PT REQUEST, PT TRANSFER TO [facility]. REPORT TO SONIA RN FOR 9D [id number]. bp TRANSPORT PENDING. 18:00 Reassessment: No changes from previously documented assessment. Patient and/or family bp updated on plan of care and expected duration. Pain level reassessed. TRANSPORT PENDING. 18:22 Reassessment: TRANSPORT AT B/S. bp 07/25 04:49 Reassessment: preliminary blood culture report faxed to [facility]. bb Vital Signs: 07/24 09:42 BP 148 / 68; Pulse 124; Resp 24; Temp 100.2; Pulse Ox 94% on R/A; Weight 78.02 kg; bp Height 5 ft. 9 in. (175.26 cm); 10:55 BP 147 / 71; Pulse 105; Resp 19; Pulse Ox 90% on R/A; bp 12:00 BP 110 / 52; Pulse 95; Resp 24; Pulse Ox 92% ; kb3 13:00 BP 128 / 57; Pulse 87; Resp 21; Pulse Ox 91% ; bp 14:00 BP 122 / 62; Pulse 85; Resp 24; Pulse Ox 93% ; bp 15:00 BP 129 / 51; Pulse 81; Resp 12; Temp 98.9; Pulse Ox 100% ; bp 16:00 BP 116 / 56; Pulse 89; Resp 26; Pulse Ox 91% ; bp 17:00 BP 114 / 87; Pulse 93; Resp 24; Pulse Ox 93% ; bp 18:00 BP 139 / 103; Pulse 90; Resp 21; Pulse Ox 94% ; bp 09:42 Body Mass Index 25.40 (78.02 kg, 175.26 cm) bp ED Course: 09:42 Patient arrived in ED. bp 09:44 Tameka Stauffer FNP-C is PHCP. snw 09:44 Antoine Fragoso MD is Attending Physician. snw 09:44 Triage completed. bp 09:44 Arm band placed on. bp 09:48 Patient has correct armband on for positive identification. Bed in low position. Call bp light in reach. Side rails up X2. 09:48 Maintain EMS IV. Dressing intact. Good blood return noted. Site clean \\T\\ dry. Gauge \\T\\ bp site: 20 G LEFT AC. 10:05 Brady Rush, RN is Primary Nurse. bp 10:18 Chest Single View XRAY In Process Unspecified. EDMS 10:29 Troponin High Sensitivity Sent. mm9 10:29 Procalcitonin Sent. mm9 10:29 AMMONIA Sent. mm9 10:29 Lipase Sent. mm9 10:29 COVID-19/FLU A+B/RSV Sent. mm9 10:29 Blood Culture Adult (2) Sent. mm9 10:29 CBC with Diff Sent. mm9 10:29 CMP Sent. mm9 10:29 Lactate w/ 2H reflex if indic. Sent. mm9 10:29 Protime (+inr) Sent. mm9 10:30 Patient has correct armband on for positive identification. Placed in gown. Cardiac mm9 monitor on. Pulse ox on. NIBP on. 10:30 Ptt, Activated Sent. mm9 10:30 Initial lab(s) drawn, by me, sent to lab. EKG done, by ED staff, reviewed by Tameka CASTILLOP-C COVID swab sent to lab. 11:19 CT Chest For PE Angio In Process Unspecified. EDMS 11:19 CT Abdomen - IV Contrast Only In Process Unspecified. EDMS 15:14 No provider procedures requiring assistance completed. Patient transferred, IV remains bp in place. Administered Medications: 10:15 Drug: [place] (HYDROcodone-acetaminophen) 5 mg-325 mg 1 tabs Route: PO; bp 13:25 Follow up: Response: No adverse reaction bp 10:15 Drug: Tylenol 650 mg Route: PO; bp 13:25 Follow up: Response: No adverse reaction bp 10:15 Drug: NS 0.9% 1000 ml Route: IV; Rate: 1 bolus; Site: left antecubital; bp 14:58 Follow up: IV Status: Completed infusion; IV Intake: 1000ml bp 11:45 Drug: Potassium Chloride 20 mEq Route: IV; Rate: calculated rate; Site: right upper arm;bp 14:57 Follow up: IV Status: Completed infusion; IV Intake: 100ml bp 13:39 Drug: Merrem 1 grams Route: IV; Rate: calculated rate; Site: right upper arm; bp 14:58 Follow up: IV Status: Completed infusion; IV Intake: 100ml bp 14:30 Drug: Tamiflu (oseltamivir) 75 mg Route: PO; bp 17:51 Follow up: Response: No adverse reaction bp 14:45 Drug: SOLU-Medrol (methylPrednisoLONE) 125 mg Route: IVP; Site: right upper arm; bp 17:52 Follow up: Response: No adverse reaction bp 14:45 Drug: Xopenex (levalbuterol) 2.5 mg Route: Inhalation; bp 14:45 Drug: AtroVENT (ipratropium) Aerosol 0.5 mg Route: Inhalation; bp 14:45 Drug: Pepcid (famotidine) 20 mg Route: IVP; Site: right upper arm; bp 17:51 Follow up: Response: No adverse reaction bp Medication: 09:48 VIS not applicable for this client. bp Intake: 14:57 IV: 100ml; Total: 100ml. bp 14:58 IV: 100ml; Total: 200ml. bp 14:58 IV: 1000ml; Total: 1200ml. bp Outcome: 14:27 ER care complete, transfer ordered by . carmela 15:13 Transferred by ground EMS to [facility], Transfer form completed. bp 15:13 Condition: stable 15:13 Instructed on the need for transfer. 18:44 Patient left the ED. bp Signatures: Dispatcher [employer] EDMS Antoine Fragoso MD MD cha Waters, Shelly, LAY OUT HELPER-C LAY OUT HELPER-Csnw Ilana Curiel, RN RN bb Shannon Sainz RN RN aa5 Brady Rush RN RN bp Bradberry, Kelly, VIC RN kb3 Pat Mann mm9 Corrections: (The following items were deleted from the chart) 17:52 15:00 BP 129 / 51; Pulse 81bpm; Resp 12bpm; Pulse Ox 100%; bp bp
[2022-07-24] MEDS ORDERED: OSELTAMIVIR 75 MG CAP PO ONE (14:44)
[2022-07-24] MEDS ORDERED: LEVALBUTEROL 1.25 MG/3 ML NEB ONE (14:44)
[2022-07-24] MEDS ORDERED: IPRATROPIUM BROM 0.5MG/2.5ML ONE (14:44)
[2022-07-24] MEDS ORDERED: METHYLPREDNISOLONE 125 MG INJ ONE (14:44)
[2022-07-24] MEDS ORDERED: FAMOTIDINE 20 MG/2 ML VIAL IV ONE (14:45)
[2022-07-24 18:58] VITALS: TEMP 98.9
[2022-07-24 19:29] VITALS: BP 139/103; O2SAT 94
--- NOTE | 2022-07-25 16:07 | EKG ---
Test Date: 2022-07-24 Test Time: 10:02:21 Heating And Ventilating Worker: GILBERTO MEASUREMENT RESULTS: Intervals: Rate: 113 MA: 144 QRSD: 98 QT: 338 QTc: 463 [place]: P: 69 MA: 144 QRS: 57 T: 54 INTERPRETIVE STATEMENTS: Sinus tachycardia Otherwise normal ECG Compared to ECG 07/22/2022 21:41:37 Sinus rhythm no longer present Electronically Signed On 07-25-22 16:05:21 DIESEL SERVICE TECHNICIAN by Red Underwood
== END 2022-07-24 18:44 | disposition short-term general hospital (02) ==
LOC: ER 09:41
DX: J10.1 Influenza due to other identified influenza virus with other respiratory manifestations (principal); J44.0 Chronic obstructive pulmonary disease with (acute) lower respiratory infection; R09.02 Hypoxemia; D72.829 Elevated white blood cell count, unspecified; R93.5 Abnormal findings on diagnostic imaging of other abdominal regions, including retroperitoneum; E11.9 Type 2 diabetes mellitus without complications; I10 Essential (primary) hypertension; Z98.890 Other specified postprocedural states; Z20.822 Contact with and (suspected) exposure to COVID-19; Z96.41 Presence of insulin pump (external) (internal); Z88.8 Allergy status to other drugs, medicaments and biological substances; Z72.0 Tobacco use
CPT/HCPCS: 93005; 87040 ×2; 85025; 36415; 82140; 87205 ×4; 85610; 82947; 83605; 85730; 84484; 83690; 80053; 84145; 0241U; 74160; 71275; 71045; Q9967; J7614; J7644; J3480; J2185; J7030 ×2; J2930; 81003; 81015; 96361; 96365; 96366; 96375; 99285